=== PATIENT | female | born 1970 | race Caucasian/White ===

== ENCOUNTER 2025-06-16 00:05 | Emergency (ER) | payer MEDICARE, SELFPAY ==
--- OUTSIDE RECORDS SUMMARY | 2025-06-04 10:30 | XMS_ITS | Encounter Summary ---
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 Name Role Phone Malinda Patterson MD Primary Care Provider Reason for Visit * Reason Comments Diabetes Hypertension Hyperlipidemia Hypothyroidism Gastroesophageal Reflux Insect Bite Left foot, x 2 month s ago Encounter Details Date Type Department Care Team (Late st Contact Info) Description 06/04/2025 10:30 AM EDT Office Visit SEP Nelida Frost [address] [place] [address] Malinda Patterson MD [address] [place] [address] Athlete's foot on left (Primary Dx); Diabetic polyneuropathy associated with type 2 diabetes mellitus (HCC); Chronic bilateral low back pain without sciatica; Type 2 diabetes mellitus with peripheral neuropathy (HCC); SOB (shortness of breath); Hyperlipidemia LDL goal <100; Chronic heart failure, unspecified heart failure type (HCC); Type 2 diabetes mellitus with hyperglycemia, with long-term current use of insulin (HCC); Hyperlipidemia associated with type 2 diabetes mellitus (HCC); Hypothyroidism, unspecified type; Gastroesophageal reflux disease with esophagitis without hemorrhage; Leg cramps Social History Tobacco Use Types Packs/Day Years Used Date Smoking Tobacco: Never Smokeless Tobacco: Never Tobacco Cessation:Counseling Given: Yes Alcohol Use Standard Drinks/Week Comments Yes 0 (1 standard drink = 0.6 oz pur e alcohol) rarely [facility] Utilities Answer Date Recorded In the past 12 months has th e electric, gas, oil, or water company threatened to shut off services in your home? No 09/10/2024 Overall Financial Resource Strain (CARDIA) Answe r Date Recorded How hard is it for you to pa y for the very basics like food, housing, medical care, and heating? Not hard at all 09/10/2024 PHQ-2 Answer Date Recorded PHQ-2 Total Score 0 09/10/2024 [facility] - Occupational Stress Questionnaire Answer Date Recorded Do you feel stress - tense, restless, nervous, or anxious, or unable to sleep at night because your mind is troubled all the time - these days? Not at all 09/10/2024 Exercise Vital Sign Answer Date Recorde d On average, how many days pe r week do you engage in moderate to strenuous exercise (like a brisk walk)? 0 days 09/10/2024 On average, how many minutes do you engage in exercise at this level? 0 min 09/10/2024 Hunger Vital Sign Answer Date Recorded Within the past 12 months, y ou worried that your food would run out before you got the money to buy more. Never true 09/10/20 24 Within the past 12 months, t he food you bought just didn't last and you didn't have money to get more. Never true 09/10/2024 [facility]AP[facility] - Transportation Answer Date Re corded In the past 12 months, has l ack of transportation kept you from medical appointments or from getting medications? No 11/08 In the past 12 months, has l ack of transportation kept you from meetings, work, or from getting things needed for daily living? No 12/05/2023 [facility] Transportation Answer D ate Recorded In the past 12 months, has l ack of reliable transportation kept you from medical appointments, meetings, work or from getting things needed for daily living? No 09/10/2024 Comments No Sex and Gender Information Value Date Recorded Sex Assigned at Not on file Legal Sex Female 1:13 AM EDT Gender Identity Not on file Sexual Orientation Not on file documented as of this encounter Last Filed Vital Signs Vital Sign Reading Time Taken Comments Blood Pressure 150/90 06/04/2025 11:07 AM EDT Pulse 72 06/04/2025 11:07 AM EDT Temperature 35.7 C (96.3 F) 06/04/2025 11:07 AM EDT Respiratory Rate - - Oxygen Saturation 96% 06/04/2025 11: 07 AM EDT Inhaled Oxygen Concentration - - Weight 123.2 kg (271 lb 9.6 oz) 025 11:07 AM EDT Height 162.6 cm (5' 4 ) 06/04/2025 11:0 7 AM EDT Body Mass Index 46.62 06/04/2025 11:07 AM EDT documented in this encounter Functional Status * Is the person deaf or does he/she have serious difficulty hearing? Answer Date of Assessment Author No 12/04/2024 11:31 AM Bishop Regan RMA * Is the person blind or does he/she have serious difficulty seeing even when wearing glasses? Answer Date of Assessment Author No 12/04/2024 11:31 AM Bishop Regan RMA * Does this person have serious difficulty walking or climbing stairs? Answer Date of Assessment Author No 12/04/2024 11:31 AM Bishop Regan RMA * Does this person have difficulty dressing or bathing? Answer Date of Assessment Author No 12/04/2024 11:31 AM Bishop Regan RMA * Because of a physical, mental or emotional condition, does this person have difficulty doing errands alone such as visiting a doctor's office or shopping? Answer Date of Assessment Author No 12/04/2024 11:31 AM Bishop Regan RMA documented as of this encounter Mental Status * Because of a physical, mental or emotional condition, does this person have serious difficulty concentrating, remembering or making decisions? Answer Entry Date Author No 12/04/2024 11:31 AM Bishop Regan RMA documented in this encounter Ordered Prescriptions Prescription Sig Dispense Quantity Refills Last Filled Start Date End Date clotrimazole (LOTRIMIN) 1 % Top CreamIndications:Ath lete's foot on left Apply topically 2 times daily. 24 g 06/04/2025 lisinopriL (PRINIVIL;ZESTRIL) 10 mg Oral TabletIndications:Ty pe 2 diabetes mellitus with hyperglycemia, with long-term current use of insulin (HCC) Take 1 Tablet by mouth daily. 90 Tablet 1 06/04/2025 tiZANidine (ZANAFLEX) 4 mg Oral TabletIndications:Le g cramps Take 1 Tablet by mouth 3 times daily as needed. for muscle spasm 270 Tablet 1 06/04/2025 omeprazole (PRILOSEC) 20 mg Oral Capsule, Delayed Release(E.C.)Indicat ions:Gastroesophagea l reflux disease with esophagitis without hemorrhage Take 1 Capsule by mouth daily. 90 Capsule 1 06/04/2025 omega-3 acid ethyl esters (LOVAZA) 1 gram Oral CapsuleIndications:T ype 2 diabetes mellitus with peripheral neuropathy (HCC) Take 2 Capsules by mouth 2 times daily. 360 Capsule 1 06/04/2025 LEVOthyroxine (SYNTHROID) 125 mcg Oral TabletIndications:Hy pothyroidism, unspecified type Take 1 Tablet by mouth daily. 90 Tablet 1 06/04/2025 Insulin Syringe-Needle U-100 0.3 mL 30 gauge x 5/16 Misc Syringe 1 Each by [facility].(Non-Drug ; Combo Route) route 3 times daily. 100 Each 2 06/04/2025 insulin glargine (LANTUS SOLOSTAR U-100 INSULIN) 100 unit/mL (3 mL) SubQ Insulin PenIndications:Type 2 diabetes mellitus with hyperglycemia, with long-term current use of insulin (HCC),Hyperlipidemia associated with type 2 diabetes mellitus (HCC) Inject 30 units every evening as directed. E11.42 15 mL 06/04/2025 carvediloL (COREG) 3.125 mg Oral TabletIndications:Ch ronic heart failure, unspecified heart failure type (HCC) Take 1 Tablet by mouth 2 times daily. 200 Tablet 2 06/04/2025 Blood-Glucose Meter [facility] KitIndications:Type 2 diabetes mellitus with peripheral neuropathy (HCC) Any meter covered by insurance- test TID before meals 1 Kit 06/04/2025 Blood Sugar Diagnostic (ONETOUCH VERIO TEST STRIPS) [facility] StripIndications:Typ e 2 diabetes mellitus with peripheral neuropathy (HCC) 1 Strip by Other route 3 times daily. 100 Strip 06/04/2025 atorvastatin (LIPITOR) 80 mg Oral TabletIndications:Hy perlipidemia LDL goal <100 Take 1 Tablet by mouth daily. 30 Tablet 06/04/2025 aspirin 81 mg Oral Tablet, Chewable CHEW AND SWALLOW 1 TABLET BY MOUTH DAILY 30 Tablet 06/04/2025 albuterol (PROVENTIL HFA;VENTOLIN HFA) 90 mcg/actuation Inhl HFA Aerosol InhalerIndications:S OB (shortness of breath) INHALE 1 TO 2 PUFFS INTO THE LUNGS EVERY 4 HOURS NEEDED 6.7 g 06/04/2025 gabapentin (NEURONTIN) 300 mg Oral CapsuleIndications:D iabetic polyneuropathy associated with type 2 diabetes mellitus (HCC),Chronic bilateral low back pain without sciatica,Type 2 diabetes mellitus with peripheral neuropathy (HCC) Take 2 Capsules by mouth 3 times daily. 180 Capsule 06/04/2025 documented in this encounter Progress Notes * Malinda Patterson MD - 06/04/2025 10:30 AM EDTAssociated Problem(s): Type 2 diabetes mellitus with peripheral neuropathy (HCC) Orders: gabapentin (NEURONTIN) 300 mg Oral Capsule; Take 2 Capsules by mouth 3 times daily. Blood Sugar Diagnostic (ONETOUCH VERIO TEST STRIPS) Misc Strip; 1 Strip by Other route 3 times daily. Blood-Glucose Meter Misc Kit; Any meter covered by insurance- test TID before meals omega-3 acid ethyl esters (LOVAZA) 1 gram Oral Capsule; Take 2 Capsules by mouth 2 times daily. * Malinda Patterson MD - 06/04/2025 10:30 AM EDTAssociated Problem(s): Hyperlipidemia LDL goal <100 Lab Results Component Value Date LDLCALC 49 09/09/2024 Orders: atorvastatin (LIPITOR) 80 mg Oral Tablet; Take 1 Tablet by mouth daily. * Malinda Patterson MD - 06/04/2025 10:30 AM EDTAssociated Problem(s): Heart failure (HCC) Orders: carvediloL (COREG) 3.125 mg Oral Tablet; Take 1 Tablet by mouth 2 times daily. * Malinda Patterson MD - 06/04/2025 10:30 AM EDTAssociated Problem(s): Hypothyroidism Orders: LEVOthyroxine (SYNTHROID) 125 mcg Oral Tablet; Take 1 Tablet by mouth daily. * Malinda Patterson MD - 06/04/2025 10:30 AM EDT Vitals: 06/04/25 1107 BP: (!) 150/90 Pulse: 72 Temp: 96.3 ??F (35.7 ??C) TempSrc: Temporal SpO2: 96% Weight: 271 lb 9.6 oz (123.2 kg) Height: 5' 4 (1.626 m) Body mass index is 46.62 kg/m??. SUBJECTIVE: Chief Complaint Patient presents with Diabetes Hypertension Hyperlipidemia Hypothyroidism Gastroesophageal Reflux Insect Bite Left foot, x 2 months ago HPI: Diabetes: Kristin following up today for diabetes. Rash of R foot. Current symptoms/problems include none. Current monitoring regimen: home blood tests - 3 times daily Home blood sugar records: fasting range: below 200 Any episodes of hypoglycemia? no On insulin? Yes: Name/dose/frequency - lantus Weight trend: Body mass index is 46.62 kg/m??. Wt Readings from Last 3 Encounters: 06/04/25 271 lb 9.6 oz (123.2 kg) 04/10/25 283 lb 12.8 oz (128.7 kg) 03/05/25 277 lb 12.8 oz (126 kg) A1c trend: Lab Results Component Value Date HGBA1C 7.4 (A) 06/04/2025 HGBA1C 7.8 (H) 12/04/2024 HGBA1C 8.4 (H) 07/12/2024 Renal trend: Lab Results Component Value Date GFRAFRAM 77 09/24/2021 GFRAFRAM 95 09/21/2021 GFRAFRAM 64 09/17/2021 Lab Results Component Value Date GFRNONAFRAM 67 09/24/2021 GFRNONAFRAM 83 09/21/2021 GFRNONAFRAM 55 (L) 09/17/2021 Lab Results Component Value Date GFRCKDEPI 91 04/10/2025 GFRCKDEPI 87 03/07/2025 GFRCKDEPI 102 12/04/2024 Lipid trend: Lab Results Component Value Date LDLCALC 49 09/09/2024 Hypertension: Home reporting of hypertension was reviewed at time of visit. Kristin denies any episodes of dizziness, lightheadedness, presyncope, syncope, headache, or chest pain. Kristin does not report any new symptoms of possible hypertension sequelae. The patient reports that she is not having significant issues or side effects of current medications/treatments. Hyperlipidemia: Last Lipid and liver panel has been reviewed. Current cholesterol goals discussed with patient. Thepatient is on a lipid lowering agent. The patient currently is on a statin. No complaints of side effects from medication. The patient is not having issues maintaining compliance with the previously outlined care plan. The patient does not report significant side effects of current medications/treatments. Diet has been reviewed with patient. Thyroid Disease: Patient following up for hypothyroidism. she is compliant with current treatment. Active symptoms reported today are none. GERD: Following up for GERD. Requires medication for symptom control daily. Feels that symptoms areadequately controlled with current treatment. She does not modify diet to avoid symptoms. Additional issues addressed today: Controlled Substance Common Conditions Interval Assessment: Chronic Pain: Reason for visit: ChronicPain Follow-Up - Kristin Lal is here for regular follow-up for chronic pain. She reports that his pain is stable and unchanged since last evaluation. Kristin Lal has not followed up with another provider since last evaluation for this issue. The location(s) of the pain include: knees. She describes the quality of pain as: very deep with severe aching. When the pain is most severe, she rates the pain as 10 / 10. When the pain is the leastsevere, she rates the pain as 5 / 10. Functional limitations include: inability to perform tasks required for employment. She has been compliant with elements of the controlled substance contract and with recommendations outlined during last assessment. Doing well, No SE's with medication. No evidence of abuse/diversion. Pt informed and aware of medication's potential for abuse/dependence. Functional goal/goals of treatment: not to be in pain Pt said that she thinks that she has a bug bite on her foot and the area is getting bigger. She hasbeen potting neosporin on the area and it is not going away Review of Systems Constitutional: Negative for activity change, appetite change and fatigue. HENT: Negative for congestion, sinus pressure and trouble swallowing. Eyes: Negative for visual disturbance. Respiratory: Negative for cough, chest tightness and wheezing. Cardiovascular: Negative for chest pain, palpitations and leg swelling. Gastrointestinal: Negative for abdominal distention, abdominal pain, constipation, diarrhea, nauseaand vomiting. Genitourinary: Negative for difficulty urinating. Musculoskeletal: Positive for arthralgias and back pain. Skin: Positive for rash. Neurological: Negative for headaches. Hematological: Negative for adenopathy. Psychiatric/Behavioral: Negative for sleep disturbance. The patient is not nervous/anxious. OBJECTIVE: Physical Exam Vitals reviewed. Constitutional: General: She is not in acute distress. Appearance: She is well-developed. HENT: Head: Normocephalic and atraumatic. Right Ear: External ear normal. Left Ear: External ear normal. Mouth/Throat: Pharynx: No oropharyngeal exudate. Eyes: Pupils: Pupils are equal, round, and reactive to light. Neck: Thyroid: No thyromegaly. Cardiovascular: Rate and Rhythm: Normal rate and regular rhythm. Heart sounds: Normal heart sounds. No murmur heard. Pulmonary: Effort: Pulmonary effort is normal. No respiratory distress. Breath sounds: Normal breath sounds. No wheezing. Abdominal: General: Bowel sounds are normal. There is no distension. Palpations: Abdomen is soft. Tenderness: There is no abdominal tenderness. Musculoskeletal: Cervical back: Normal range of motion and neck supple. Lymphadenopathy: Cervical: No cervical adenopathy. Skin: Findings: Rash present. Comments: Oval rash of dorsum of R foot with raised edges Neurological: Mental Status: She is alert and oriented to person, place, and time. Motor: No abnormal muscle tone. Coordination: Coordination normal. Assessment & Plan Diabetic polyneuropathy associated with type 2 diabetes mellitus (HCC) Lab Results Component Value Date HGBA1C 7.4 (A) 06/04/2025 Improved Continue current Orders: gabapentin (NEURONTIN) 300 mg Oral Capsule; Take 2 Capsules by mouth 3 times daily. IRIS DIABETIC RETINOPATHY EXAM POCT GLYCATED HEMOGLOBIN, TOTAL MICROALBUMIN/CREATININE RATIO URINE; Future Chronic bilateral low back pain without sciatica Orders: gabapentin (NEURONTIN) 300 mg Oral Capsule; Take 2 Capsules by mouth 3 times daily. Type 2 diabetes mellitus with peripheral neuropathy ([facility]) Orders: gabapentin (NEURONTIN) 300 mg Oral Capsule; Take 2 Capsules by mouth 3 times daily. Blood Sugar Diagnostic (ONETOUCH VERIO TEST STRIPS) Misc Strip; 1 Strip by Other route 3 times daily. Blood-Glucose Meter Misc Kit; Any meter covered by insurance- test TID before meals omega-3 acid ethyl esters (LOVAZA) 1 gram Oral Capsule; Take 2 Capsules by mouth 2 times daily. SOB (shortness of breath) Orders: albuterol (PROVENTIL HFA;VENTOLIN HFA) 90 mcg/actuation Inhl HFA Aerosol Inhaler; INHALE 1 TO 2 PUFFS INTO THE LUNGS EVERY 4 HOURS NEEDED Hyperlipidemia LDL goal <100 Lab Results Component Value Date LDLCALC 49 09/09/2024 Orders: atorvastatin (LIPITOR) 80 mg Oral Tablet; Take 1 Tablet by mouth daily. Chronic heart failure, unspecified heart failure type ([facility]) Orders: carvediloL (COREG) 3.125 mg Oral Tablet; Take 1 Tablet by mouth 2 times daily. Type 2 diabetes mellitus with hyperglycemia, with long-term current use of insulin ([facility]) ] Orders: insulin glargine (LANTUS SOLOSTAR U-100 INSULIN) 100 unit/mL (3 mL) SubQ Insulin Pen; Inject 30 units every evening as directed. E11.42 IRIS DIABETIC RETINOPATHY EXAM POCT GLYCATED HEMOGLOBIN, TOTAL MICROALBUMIN/CREATININE RATIO URINE; Future lisinopriL (PRINIVIL;ZESTRIL) 10 mg Oral Tablet; Take 1 Tablet by mouth daily. Hyperlipidemia associated with type 2 diabetes mellitus ([facility]) Orders: insulin glargine (LANTUS SOLOSTAR U-100 INSULIN) 100 unit/mL (3 mL) SubQ Insulin Pen; Inject 30 units every evening as directed. E11.42 Hypothyroidism, unspecified type Orders: LEVOthyroxine (SYNTHROID) 125 mcg Oral Tablet; Take 1 Tablet by mouth daily. Gastroesophageal reflux disease with esophagitis without hemorrhage Orders: omeprazole (PRILOSEC) 20 mg Oral Capsule, Delayed Release(E.C.); Take 1 Capsule by mouth daily. Leg cramps Orders: tiZANidine (ZANAFLEX) 4 mg Oral Tablet; Take 1 Tablet by mouth 3 times daily as needed. for muscle spasm Athlete's foot on left Orders: clotrimazole (LOTRIMIN) 1 % Top Cream; Apply topically 2 times daily. documented in this encounter Plan of Treatment Upcoming Encounters Date Type Department Care Team (Late st Contact Info) Description 09/30/2025 10:30 AM EST Office Visit [facility] [address] [place] [address] Malinda Patterson MD [address] [facility] [place] [address] documented as of this encounter Goals Goal Patient Goal Type Associated Problems Recent Progress Patient-Stated? Author Blood Pressure < 140/90 Blood Pressure 150/90(2024 11:07 AM EDT) No Giovanni, Lyunda, RMA BMI (Calculated) < 30 General 46.7(06/04/20 11:07 AM EDT) No [place], Lyunda, RMA Maintain a healthy diet, exercise regularly and maintain an ideal body weight General No Radha Soto RMA HEMOGLOBIN A1C < 7.0 Result Component 7.4( 11:23 AM EDT) No Giovanni, Lyunda, RMA documented as of this encounter Procedures Procedure Name Priority Date/Time Associated Diagnosis Comments MICROALBUMIN/CREATI NINE RATIO URINE Routine 06/04/2025 11:24 AM EDT Diabetic polyneuropathy associated with type 2 diabetes mellitus (HCC) Type 2 diabetes mellitus with hyperglycemia, with long-term current use of insulin (HCC) POCT GLYCATED HEMOGLOBIN, TOTAL Routine 06/04/2025 11:23 AM EDT Diabetic polyneuropathy associated with type 2 diabetes mellitus (HCC) Type 2 diabetes mellitus with hyperglycemia, with long-term current use of insulin (HCC) IRIS DIABETIC RETINOPATHY EXAM Routine 06/04/2025 11:18 AM EDT Diabetic polyneuropathy associated with type 2 diabetes mellitus (HCC) Type 2 diabetes mellitus with hyperglycemia, with long-term current use of insulin (HCC) documented in this encounter Results * MICROALBUMIN/CREATININE RATIO URINE (06/04/2025 11:24 AM EDT) Urine Microalb <12.0 mg/L 06/05/2025 2:38 AM EDT [facility] [employer], [facility] Urine Creatinine 158.0 mg/dL 06/05/20 25 2:38 AM EDT [facility] [employer], [facility] Ur Microalb/Creat 025 2:38 AM EDT [facility] Comment: Because the albumin level is below the level of detection in this urine specimen, the laboratory is unable to calculate a reliable albumin/creatinine ratio. Microalbuminuria is unlikely if the urine albumin concentration is less than 20- 30 mg/L in a random specimen. Urine STRUCTURE OF URINARY TRACT PROPER / Unknown 06/04/2025 11:24 AM EDT 06/04/2025 11:24 AM EDT Malinda Patterson MD URINE ORDERABLES Final Result [facility] [employer], [facility] [address] [facility], [place] [address] [facility] [address] [place], [place] [id number] * (ABNORMAL) POCT GLYCATED HEMOGLOBIN, TOTAL (06/04/2025 11:23 AM EDT) Hemoglobin A1C 7.4(A) 4 - 6 % SEP OFFICE Lot Number [id number] SEP OFFICE Expiration Date 02/07/2027 SEP OFFICE SeriAl # SEP OFFICE 06/04/2025 11:2 3 AM EDT Malinda Patterson MD POINT OF CARE TEST ORDE RABLES Final Result SEP OFFICE * IRIS DIABETIC RETINOPATHY EXAM (06/04/2025 11:18 AM EDT) Retinopathy Exam Severity NORMAL [facility] Right Diabetic Retinopathy None [facility] Right Macular Edema None [facility] Right Other Retina None [facility] Right Eye Image Quality Gradable Image [facility] Left Diabetic Retinopathy None [facility] Left Macular Edema None [facility] LAB Left Other Retina None SE LAB Left Eye Image Quality Gradable Image [facility] 06/04/2025 11:1 8 AM EDT 06/04/2025 11:18 AM EDT Impressions [facility] - 06/04/2025 11:34 AM EDT Retinal Study Result for KRISTIN LAL, a 54 y/o, F (: 1970, ) presented to [facility] on 06-04-2025 for a retinal imaging study of the left and right eyes. Based on the findings of the study, the following is recommended for KRISTIN LAL Normal Study: Return for follow up retina evaluation within 2 years Interpreting Provider's Comments: No comments provided Diagnoses Present: E1142 - Type 2 diabetes mellitus with diabetic polyneuropathy Right eye findings: Negative for Diabetic Retinopathy Negative for Macular Edema Left eye findings: Negative for Diabetic Retinopathy Negative for Macular Edema This result was electronically signed by Ravindra Hernandez MD, , Taxonomy: [id number] on 06-04-2025 15:34 [facility]. NOTE: Any pathology noted on this diabetic retinal evaluation should be confirmed by an appropriate ophthalmic examination. Malinda Patterson MD OPHTHALMOLOGY SERVICES ORDERABLES Final Result Performing Organization Address City/[facility]/ZIP Co de Phone Number [facility] [address] [place], [place] [id number] documented in this encounter Visit Diagnoses Diagnosis Athlete's foot on left- Primary Dermatophytosis of foot Diabetic polyneuropathy associated with type 2 diabetes mellitus (HCC) Chronic bilateral low back pain without sciatica Type 2 diabetes mellitus with peripheral neuropathy (HCC) SOB (shortness of breath) Shortness of breath Hyperlipidemia LDL goal <100 Other and unspecified hyperlipidemia Chronic heart failure, unspecified heart failure type (HCC) Type 2 diabetes mellitus with hyperglycemia, with long-term current use of insulin (HCC) Hyperlipidemia associated with type 2 diabetes mellitus (HCC) Hypothyroidism, unspecified type Gastroesophageal reflux disease with esophagitis without hemorrhage Leg cramps Cramp of limb documented in this encounter Discontinued Medications Medication Sig Discontinue Reason Start Date End Da te albuterol (PROVENTIL HFA;VENTOLIN HFA) 90 mcg/actuation Inhl HFA Aerosol InhalerIndications:SOB (shortness of breath) INHALE 1 TO 2 PUFFS INTO THE LUNGS EVERY 4 HOURS NEEDED Reorder 05/31/2022 06/04/2025 Blood-Glucose Meter Mis KitIndications:Type 2 diabetes mellitus with peripheral neuropathy (HCC) Any meter covered by insurance- test TID before meals Reorder 06/23/2022 06/04/2025 aspirin 81 mg Oral Tablet, Chewable CHEW AND SWALLOW 1 TABLET BY MOUTH DAILY Reorder 07/21/2022 06/04/2025 Insulin Syringe-Needle U-100 0.3 mL 30 gauge x 5/16 Misc Syringe 1 Each by [facility].(Non-Drug; Combo Route) route 3 times daily. Reorder 06/30/2023 06/04/2025 tiZANidine (ZANAFLEX) 4 mg Oral TabletIndications:Leg cramps Take 1 Tablet by mouth 3 times daily as needed. for muscle spasm Reorder 07/11/2024 06/04/2025 omeprazole (PRILOSEC) 20 mg Oral Capsule, Delayed Release(E.C.)Indications: Gastroesophageal reflux disease with esophagitis without hemorrhage Take 1 Capsule by mouth daily. Reorder 07/11/2024 06/04/2025 omega-3 acid ethyl esters (LOVAZA) 1 gram Oral CapsuleIndications:Type 2 diabetes mellitus with peripheral neuropathy (HCC) TAKE 2 CAPSULES BY MOUTH TWICE DAILY Reorder 08/21/2024 06/04/2025 carvediloL (COREG) 3.125 mg Oral TabletIndications:Chronic heart failure, unspecified heart failure type (HCC) TAKE 1 TABLET BY MOUTH TWICE DAILY Reorder 2024 06/04/2025 atorvastatin (LIPITOR) 80 mg Oral TabletIndications:Hyperli pidemia LDL goal <100 Take 1 Tablet by mouth daily. Reorder 12/03/2024 06/04/2025 Blood Sugar Diagnostic (ONETOUCH VERIO TEST STRIPS) Misc StripIndications:Type 2 diabetes mellitus with peripheral neuropathy (HCC) 1 Strip by Other route 3 times daily. Reorder 12/03/2024 06/04/2025 LEVOthyroxine (SYNTHROID) 125 mcg Oral TabletIndications:Hypothy roidism, unspecified type Take 1 Tablet by mouth daily. Reorder 03/05/2025 06/04/2025 gabapentin (NEURONTIN) 300 mg Oral CapsuleIndications:Diabet ic polyneuropathy associated with type 2 diabetes mellitus (HCC),Chronic bilateral low back pain without sciatica,Type 2 diabetes mellitus with peripheral neuropathy (HCC) Take 2 Capsules by mouth 3 times daily. Reorder 03/05/2025 06/04/2025 insulin glargine (LANTUS SOLOSTAR U-100 INSULIN) 100 unit/mL (3 mL) SubQ Insulin PenIndications:Type 2 diabetes mellitus with hyperglycemia, with long-term current use of insulin (HCC),Hyperlipidemia associated with type 2 diabetes mellitus (HCC) Inject 30 units every evening as directed. E11.42 Reorder 04/08/2025 06/04/2025 documented as of this encounter Care Teams Rig Site Engineer Relationship Specialty Start Date End Date Malinda Patterson MD [address] [place] [address] PCP - General Family Medicine 08/27/14 documented as of this encounter
[2025-06-16] VITALS (11 sets, daily range): BP systolic 92–117; BP diastolic 51–64; PULSE 65–95; RESP 14–24; TEMP 36.6; O2SAT 97–100; BMI 47.5
--- NOTE | 2025-06-16 00:13 | ECG_ITS ---
APPROVED REPORT Exam: Resting ECG HR:73 bpm ECG Measurements Heart Rate 73 AXES PA 166 P 24 QRSd 89 QRS 79 QT 382 T 48 QTc 408 Conclusion SINUS RHYTHM LOW QRS VOLTAGE IN PRECORDIAL LEADS [QRS DEFLECTION < 1.0 mV IN CHEST LEADS] No STEMI Electronically signed by : ROMULO AMIN, 06/16/2025 04:47:15
--- NOTE | 2025-06-16 00:17 | HMH.EDGENADL ---
Discharge Plan Disposition Patient Disposition: Home, Self-Care Condition: Good Referrals Follow up/Referrals: Provider,Referral, [Primary Care Provider, Medical] - See instructions Activity Restrictions/Add. Instructions Additional Instructions/Restrictions: You were evaluated in the ER and are believed to be appropriate for discharge at this time. Continue taking all home medications as previously prescribed. Call your primary care doctor and tell them you were in the ER, ask them for an appointment in the next 2 to 3 days to be reevaluated. Return to the ER with any new, worsening, or otherwise concerning symptoms as discussed. Clinical Impressions Clinical Impression: Hyperglycemia Instructions Patient Instructions: DI for Hyperglycemia -- Adult Discharge ED Provider: Savanna Rae Adult HPI General Chief complaint: Hyper/Hypoglycemia Stated complaint: diabetic, numbness, dry mouth Time Seen by Provider: 06/16/25 00:07 History of Present Illness HPI narrative: 54-year-old female with history of diabetes on insulin complicated by peripheral neuropathy, hyperlipidemia, hypothyroid, GERD, and CHF not on a diuretic presents to the ER complaining of feeling numb all over and dry mouth. Patient reports she was sitting in her chair after dinner, dozed off, and when she woke up she had a sensation of being numb all over. She is able to feel touch, pressure, etc. but states her entire body feels numb like you are going to pass out but she has not passed out, no falls, she is not having any vision changes, hearing changes, no numbness, tingling, or weakness. She has no chest pain, no palpitations or difficulty breathing, no back pain, no nausea or vomiting. No diarrhea or constipation. Patient reports her blood sugar was 275 so she gave herself 13 units of her insulin. FSBG on arrival 192. She denies any dysuria or hematuria, no new swelling in the feet or legs, no fevers or chills, no cough or congestion, no other associated symptoms. Patient ambulated independently into the ER. Related Data Allergies Allergy/AdvReac Type Severity Reaction Status Date / Time Penicillins Allergy Hives Verified 06/16/25 00:31 [facility] Disclaimer: The information contained in this section may have been updated after the patient was seen, as this information can be updated by other users. Social History Smoking Status: Never smoker alcohol intake: never current occupational status: other Travel in the last 8 weeks?: None ROS Obtained: Yes Systems reviewed as appropriate & no additional complaints except as documented per HPI Physical Exam General General appearance: alert, in no apparent distress and obese Head Head exam: atraumatic and normocephalic Eye Eye exam: Present PERRL and EOMI; Absent jaundice, conjunctival injection or nystagmus ENT ENT exam: Present mucous membranes moist Neck Neck exam: Present normal inspection and full ROM Chest Chest inspection: Present symmetric chest wall rise Respiratory Respiratory exam: Present normal lung sounds bilaterally; Absent respiratory distress, wheezes or stridor Cardiovascular Cardiovascular exam: Present regular rate and normal rhythm Abdominal Exam Abdominal exam: Present soft; Absent distention, tenderness, guarding or rebound Extremities Exam Extremities exam: Present full ROM and other (Large, obese legs but no pitting edema; small wounds on distal bilateral lower extremities that patient states are chigger bites . Bites do not appear infected and are well-healing) Neurological Exam Neurological exam: Present alert, oriented X3, CN II-XII intact and normal gait; Absent motor sensory deficit (GCS 15, NIH 0, independently ambulatory into the ER) Psychiatric Psychiatric exam: Present normal affect and normal mood Skin Skin exam: Present warm and dry Medical Decision Making Medical Records Medical records reviewed: Yes I reviewed the patient's medical records. Screening: Per USPSTF and CDC recommendations, given the prevalence of disease in our region, it is our hospital?s policy to screen for HIV and viral Hepatitis for all patients aged 18 and over and those with ongoing risk factors. MR Comment: Patient handed me an AVS from her recent PCP visit which discusses her chronic medical conditions. She was started on clotrimazole after her last visit which was at the end of May. Junior Inquiry Pt receiving controlled substance: No Vital Signs: 06/16/25 00:18 06/16/25 00:31 06/16/25 00:53 Temperature 97.8 F Temperature Source Oral Pulse Rate 71 67 Pulse Rate [Orthostatic Lying Radial] Pulse Rate [Orthostatic Sitting Right Radial] Pulse Rate [Orthostatic Standing Right Radial] Pulse Rate [Radial] 73 Respiratory Rate 16 23 Blood Pressure 94/51 L Blood Pressure [Orthostatic Lying Right Arm] Blood Pressure [Orthostatic Sitting] Blood Pressure [Orthostatic Standing Right Arm] Blood Pressure [Right Arm] 112/57 L Blood Pressure Mean [Right Arm] 75 Blood Pressure Position [Right Arm] Sitting 02 Sat by Pulse Oximetry 99 100 Oxygen Delivery Method Room Air 06/16/25 01:00 06/16/25 01:17 06/16/25 01:18 Temperature Temperature Source Pulse Rate 67 95 H 78 Pulse Rate [Orthostatic Lying Radial] Pulse Rate [Orthostatic Sitting Right Radial] Pulse Rate [Orthostatic Standing Right Radial] Pulse Rate [Radial] Respiratory Rate 21 24 14 Blood Pressure 102/59 L 102/60 L 117/60 Blood Pressure [Orthostatic Lying Right Arm] Blood Pressure [Orthostatic Sitting] Blood Pressure [Orthostatic Standing Right Arm] Blood Pressure [Right Arm] Blood Pressure Mean [Right Arm] Blood Pressure Position [Right Arm] 02 Sat by Pulse Oximetry 98 98 97 Oxygen Delivery Method 06/16/25 01:21 Temperature Temperature Source Pulse Rate Pulse Rate [Orthostatic Lying Radial] 73 Pulse Rate [Orthostatic Sitting Right Radial] 74 Pulse Rate [Orthostatic Standing Right Radial] 79 Pulse Rate [Radial] Respiratory Rate Blood Pressure Blood Pressure [Orthostatic Lying Right Arm] 102/60 L Blood Pressure [Orthostatic Sitting] 92/54 L Blood Pressure [Orthostatic Standing Right Arm] 117/60 Blood Pressure [Right Arm] Blood Pressure Mean [Right Arm] Blood Pressure Position [Right Arm] 02 Sat by Pulse Oximetry Oxygen Delivery Method Lab Data Lab Results 06/16/25 00:13: VBG pH 7.31, VBG pCO2 52.1 H, VBG pO2 43.1 H, VBG HCO3 25.9, VBG Total CO2 27.5 H, VBG O2 Saturation 73.1 H, VBG Base Excess -0.3, VBG Lactic Acid 2.0 06/16/25 00:27: WBC 13.7 H, RBC 4.58, Hgb 11.9 L, Hct 39.1, MCV 85.4, MCH 26.0 L, MCHC 30.4 L, RDW 15.9, Plt Count 295, MPV 12.3 H, Neut % (Auto) 66.0, Lymph % (Auto) 25.2, Guthrie % (Auto) 6.6, Eos % (Auto) 1.6, Baso % (Auto) 0.3, Neut # (Auto) 9.0 H, Lymph # (Auto) 3.5, Guthrie # (Auto) 0.9, Eos # (Auto) 0.2, Baso # (Auto) 0.0, PT 11.3, INR 1.02, Sodium 135 L, Potassium 4.9, Chloride 103, Carbon Dioxide 27, Anion Gap 9.9, BUN 15, Creatinine 0.80, Estimated Creat Clear 69, Estimated GFR 74, Est GFR ( Amer) 90, Glucose 152 H, Calcium 9.0, Total Bilirubin 0.7, AST 24, ALT 21, Alkaline Phosphatase 105, Troponin I < 0.01, NT-Pro-B Natriuret Pep < 20.0, Total Protein 7.0, Albumin 4.0, Globulin 3.0, Albumin/Globulin Ratio 1.3, Acetone Level None detected 06/16/25 00:37: Urine Color Yellow, Urine Appearance Clear, Urine pH 6.0, Ur Specific Burton 1.010, Urine Protein Negative, Urine Glucose (UA) Negative, Urine Ketones Negative, Urine Blood Negative, Urine Nitrate Negative, Urine Bilirubin Negative, Urine Urobilinogen 0.2, Ur Leukocyte Esterase Negative, Urine RBC None, Urine WBC 3-5, Ur Squamous Epith Cells 5-10, Urine Bacteria 1+ 06/16/25 00:27 06/16/25 00:27 Orders (Tests/Meds): ED MEDICATIONS Discontinued Medications Generic Name Dose Route Start Last Admin Trade Name Freq PRN Reason Stop Dose Admin Albuterol/Ipratropium 3 ml 06/16/25 00:41 06/16/25 00:52 Ipratropium/Albuterol 3 Ml Neb IH 06/16/25 00:42 3 ml ONCE ONE Administration Lactated Ringer's 500 mls @ 999 mls/hr 06/16/25 00:14 06/16/25 00:32 Lactated Ringer's 500ml IV 06/16/25 00:44 999 mls/hr .Q31M ONE Administration ORDERS Category Date Time Status CXR --portable [XR chest portable] Stat Exams 06/16/25 00:23 Completed Acetone, Serum (Rapid) Stat Lab 06/16/25 00:27 Completed BNP [NT Pro Brain Natriuretic Pep.] Stat Lab 06/16/25 00:27 Completed CBC w/Auto Diff [Complete Blood Count Auto Diff] Stat Lab 06/16/25 00:27 Completed CMP [Comprehensive Metabolic Panel] Stat Lab 06/16/25 00:27 Completed PT INR [Prothrombin Time INR] Stat Lab 06/16/25 00:27 Completed Trop I [Troponin I] Stat Lab 06/16/25 00:27 Completed Troponin I Q3H Lab 06/16/25 03:15 Ordered Troponin I Q3H Lab 06/16/25 06:15 Ordered Urinalysis and Microscopic Stat Lab 06/16/25 00:37 Completed VBG [Venous Blood Gas] Stat RT 06/16/25 00:13 Completed ECG Request Stat Y 06/16/25 00:13 Ordered Medical Decision Narrative: In summary, this 54-year-old female with comorbidities discussed in the HPI which are not at goal therapy presents to the emergency department today with a sensation of feeling numb all over. On initial evaluation patient is hemodynamically stable, afebrile, FSBG on arrival 192, patient is obese, benign cardiopulmonary exam, no peripheral edema, benign abdominal exam, GCS 15, though the patient reports feeling numb all over she does not actually have any deficits on exam. Sensation completely intact throughout. Differential diagnosis includes but is not limited to hyperglycemia, hypoglycemia, DKA, HHS, UTI, considered the possibility of presyncope or arrhythmia though patient has no chest pain or difficulty breathing I did consider the possibility of ACS though I suspect this is very unlikely. Patient has a history of peripheral neuropathy but she is not having any pain or tingling. With no identifiable deficits on exam I do not believe this is an acute neurologic pathology and it would not make sense for her to have involvement of her entire body with neurologic abnormality so I suspected this more likely to be metabolic. Based on these concerns, I ordered serum labs, cardiac workup, chest x-ray, urine studies. ECG personally interpreted demonstrates sinus rhythm, rate 73, normal axis, normal NH and QTc, no STEMI. Patient received small amount of IV fluids as I do not want to fluid overload this patient since she reports a history of CHF though she does not take any diuretics. Since she is hyperglycemic hopefully this will help decrease her blood sugar. Labs personally reviewed demonstrate mild leukocytosis, nonspecific and nonactionable, mild but nonactionable anemia, normal platelets, PT/INR normal, VBG with normal pH at 7.31, very slight hypercarbia PCO2 52.1. Patient is prescribed albuterol so I administered a single DuoNeb though I do not appreciate any evidence of respiratory distress, she is saturating well on room air, and she has no wheezing or other adventitious sounds. I do not believe this hypercarbia is contributing to her symptoms at this time. UA negative for findings of infection or other abnormalities, no acetone. Findings are reassuring against DKA. CMP []. XR personally interpreted demonstrates no acute intrathoracic abnormality, see radiology read for final interpretation. Orthostatics initially performed by community development technician were not performed correctly, patient's sitting blood pressure was initially forgotten and performed after the lying and the standing, tech had to go back into the room and just randomly go t the sitting blood pressure. I am not considering these as part of my assessment since they were not done correctly. Full orthostatics are being performed by RN at this time. Orthostatics correctly performed by RN are reassuring. Patient had no hypotension, her heart rate did increase between lying and sitting but improved upon standing. She experienced no lightheadedness or dizziness. I do not believe orthostatic hypotension is contributing to her symptoms. On reassessment she feels very well, has none of the symptoms that prompted her to come in, and with very reassuring workup I believe she is appropriate for discharge at this time. I discussed results with the patient and family they are agreeable to the plan for discharge. No new prescriptions. I gave instructions for continued symptomatic monitoring and management, outpatient follow-up including close reevaluation by her PCP, and strict return precautions for the ER. She indicated understanding and the patient was discharged in stable condition. Critical Care Critical Care Time Critical Care Time: No
--- NOTE | 2025-06-16 00:23 | XR_ITS ---
PROCEDURE INFORMATION: Exam: XR Chest Exam date and time: 06/16/2025 12:40 AM Age: 54 years old Clinical indication: Other: Pre-syncope TECHNIQUE: Imaging protocol: Radiologic exam of the chest. Views: 1 view. COMPARISON: No relevant prior studies available. FINDINGS: Lungs: Right hemidiaphragm elevation with right lower lung atelectasis. Mild scarring and atelectasis in the lower lungs. Pleural spaces: Unremarkable. No pleural effusion. No pneumothorax. Heart/Mediastinum: Unremarkable. No cardiomegaly. Bones/joints: Unremarkable. IMPRESSION: No acute findings.
[2025-06-16] MEDS: RINGERS SOLUTION,LACTATED 500 ML 999 ML IV (00:32)
[2025-06-16 00:36] LABS: Lactate Venous 2.0 mmol/L (0.4-2.0); VBG HCO3 25.9 mmol/L (23-30); VBG PH 7.31 mmol/L (7.31-7.41); VBG PO2 43.1 mmol/L (28-40)
[2025-06-16 00:36] LABS: Hematocrit 39.1 % (37.0-47.0); Hemoglobin 11.9 g/dL (12.2-16.2); Immature Granulocytes % 0.3 %; Mean Corpuscular HGB Conc 30.4 g/dL (31.8-35.4); Mean Corpuscular Hemoglobin 26.0 pg (27.0-31.2); Mean Corpuscular Volume 85.4 fl (81-99); Nucleated Red Blood Cells % 0 %; Platelet Count 295 K/mm3 (142-424); Red Blood Count 4.58 M/mm3 (4.20-5.40); Red Cell Distribution Width-SD 49.1 fL; White Blood Count 13.7 K/mm3 (4.8-10.8)
[2025-06-16 00:38] LABS: VBG PCO2 52.1 mmol/L (35-51)
[2025-06-16 00:45] LABS: Microscopic, Urine URINE MICROSCOPIC (MICROSCOPIC)
[2025-06-16 00:47] LABS: Acetone, Serum (Rapid) None Detected (None Detect)
[2025-06-16 00:47] LABS: Bilirubin,Urine Negative (Negative); Color,Urine YELLOW (Yellow); Glucose,Urine (UA) Negative (Negative); Ketones,Urine Negative (Negative); Leukocyte Esterase,Urine Negative (Negative); PH,Urine 6.0 (5.0-8.5); Protein,Urine Negative (Negative); Specific Gravity, Urine 1.010 (1.005-1.030); Urobilinogen,Urine 0.2 EU/dl (0.2)
[2025-06-16 00:50] LABS: INR 1.02 (0.9-1.1); Prothrombin Time 11.3 seconds (10.1-12.5)
[2025-06-16 00:51] LABS: Alanine Aminotransferase 21 U/L (12-78); Albumin Level 4.0 g/dl (3.5-5.0); Albumin/Globulin Ratio 1.3 (1.1-1.8); Alkaline Phosphatase 105 U/L (38-126); Anion Gap 9.9 mEq/L (5-15); Aspartate Amino Transferase 24 U/L (14-36); Bilirubin,Total 0.7 mg/dl (0.2-1.3); Blood Urea Nitrogen 15 mg/dl (7-17); Calcium 9.0 mg/dl (8.4-10.2); Carbon Dioxide 27 mmol/L (22.0-30.0); Chloride 103 mmol/L (98-107); Creatinine Clearance Estimated 69 mL/min (50-200); Creatinine,Serum 0.80 mg/dl (0.52-1.04); Estimated Glomerular Filt Rate 74 ml/min (>60); GFR (African American) 90 ML/MIN (>60); Globulin 3.0 g/dL (1.3-3.2); Glucose 152 mg/dl (74-100); Potassium 4.9 mmoL/L (3.5-5.1); Sodium 135 mmol/L (136-145); Total Protein,Serum 7.0 g/dl (6.3-8.2)
[2025-06-16] MEDS: IPRATROPIUM/ALBUTEROL 3 ML NEB IH (00:52)
[2025-06-16 01:00] LABS: NT Pro Brain Natriuretic Pep. < 20.0 pg/mL (0-125)
[2025-06-16 01:04] LABS: Troponin I < 0.01 ng/ml (0.00-0.034)
[2025-06-16 01:05] LABS: Bacteria,Urine 1+ /lpf
--- NOTE | 2025-06-16 01:51 | PC.NURSE ---
IV found not to be working, removed and bandage applied, no redness or swelling noted.
--- OUTSIDE RECORDS SUMMARY | 2025-06-16 02:12 | XMS_ITS | Encounter Summary ---
Author Organization [place] [address] Care Team Providers Care Data Processing Systems Consultant Name Role Phone Malinda Patterson MD Primary Care Provider Encounter Details Date Type Department Care Team (Late st Contact Info) Description 03/07/2025 Results Follow-Up [facility] [address] [place] [phone] Malinda Patterson MD [address] [place] [address] COMPLIANCE PANEL, URINE Social History Tobacco Use Types Packs/Day Years Used Date Smoking Tobacco: Never Smokeless Tobacco: Never Alcohol Use Standard Drinks/Week Comments Yes 0 (1 standard drink = 0.6 oz pur e alcohol) rarely [place] Utilities Answer Date Recorded In the past 12 months has [employer], gas, oil, or water [employer] threatened to shut off services in your home? No 09/10/2024 Overall Financial Resource Strain (CARDIA) Answe r Date Recorded How hard is it for you to pa y for the very basics like food, housing, medical care, and heating? Not hard at all 09/10/2024 PHQ-2 Answer Date Recorded PHQ-2 Total Score 0 09/10/2024 [facility] Danielson of Occupat ional Health - Occupational Stress [...] things needed for daily living? No 12/05/2023 [facility] IP Transportation Answer D ate Recorded In [...] on file documented as of this encounter Functional Status * Is the person deaf or does he/she have serious difficulty hearing? Answer Date of Assessment Author No 12/04/2024 11:31 AM Bsihop Regan RMA * Is the person blind [...] 12/04/2024 11:31 AM Bishop Regan RMA * Suicide Severity Rating Answer Date of Assessment Author No Risk 04/10/2025 10:58 AM EDT King Perkins RN * [place] Suicide Severity Rating Scale (Q shift for moderate and high) Question Answer Date of Assessment Author 1. In the past month, have y ou wished you were or wished you could go to sleep and not wake up? 0 04/10/2025 10:58 AM EDT Knig Cortez RN 2. In the past month, have y ou actually had any thoughts of killing yourself? (If no, skip to question 6) 0 04/10/2025 10:58 AM EDT King Perkins RN 6. Have you ever done anythi ng, started to do anything, or prepared to do anything to end your life? 0 04/10/2025 10:58 AM EDT King Gutierrez RN documented as of this encounter Mental Status * Because of a physical, mental or emotional condition, does this person have serious difficulty concentrating, remembering or making decisions? Answer Entry Date Author No 12/04/2024 11:31 AM Bishop Regan RMA documented in this encounter Plan of Treatment Upcoming Encounters Date Type Department Care Team (Late st Contact Info) Description 09/30/2025 10:30 AM EST Office Visit [facility] [address] [facility] [place] [phone] Malinda Patterson MD [address] [place] [address] documented as of this encounter Goals Goal Patient Goal Type Associated Problems Recent Progress Patient-Stated? Author Blood Pressure < 140/90 Blood Pressure 150/90(2024 11:07 AM EDT) No Giovanni, Lyunda, RMA BMI (Calculated) < 30 General 46.7(06/04/20 11:07 AM EDT) No [place], Lyunda, RMA Maintain a healthy diet, exercise regularly and maintain an ideal body weight General No Radha Soto RMA HEMOGLOBIN A1C < 7.0 Result Component 7.4( 5 11:23 AM EDT) No Ezekiel Davila RMA documented as of this encounter Visit Diagnoses Not on filedocumented in this encounter Care Teams Data Processing Systems Consultant Relationship Specialty Start Date End Date Malinda Patterson MD [address] [place] [address] PCP - General Family Medicine 08/27/14 documented as of this encounter
--- OUTSIDE RECORDS SUMMARY | 2025-06-16 02:12 | XMS_ITS | Clinical Summary ---
Author Organization [facility] Address [address] [place] [address] Phone Care Team Providers Care Waitstaff Name Role Phone Contreras Casper MD Primary Care Physician [ ] Conditions or Problems Problem Name Problem Code Onset Date Status Entry Date Provider Comment Standard Description Annotate OTITIS EXTERNA 0395520 (SNOMED CT) 06/04 Inactive 06/04 Contreras Casper MD Otitis externa RIGHT NEURODERMATI TIS 690430316 (SNOMED CT) 04/26 Inactive 04/27 Contreras Casper MD Neurodermatitis ABRASION 999946387 (SNOMED CT) 04/26 Inactive 04/26 Contreras Casper MD Abrasion R ARM HAND PAIN, RIGHT 18993006 (SNOMED CT) 04/22 Active 04/22 Contreras Casper MD Hand pain LIVER FUNCTION TESTS ABNORMAL 632269660 (SNOMED CT) 11/19 Active 11/19 Contreras Casper MD Liver function tests outside reference range LICHEN SIMPLEX CHRONICUS 99094805 (SNOMED CT) 12/30 Active 12/30 Jenna oLck MD Lichen simplex chronicus VENTRAL HERNIA 867075505 (SNOMED CT) 12/16 Active 12/16 Contreras Casper MD Hernia of anterior abdominal wall LOW BACK PAIN CHRONIC M54.5 (ICD-10-CM ) 07/17 Active 07/17 Contreras Casper MD Low back pain HYPERKALEMIA 79101996 (SNOMED CT) 06/05 Active 06/05 Contreras Casper MD Hyperkalemia RESTLESS LEG SYNDROME 97113866 (SNOMED CT) 05/28 Active 05/28 Contreras Casper MD Restless legs HYPOTENSION 58586761 (SNOMED CT) 04/18 Active 04/20 Contreras Casper MD Low blood pressure CHEST PAIN NOS 60288292 (SNOMED CT) 03/28 Active 03/28 Contreras Casper MD Chest pain HYPOTHYROIDI SM 54715830 (SNOMED CT) 02/21 Active 02/21 Contreras Casper MD Hypothyroidism IBS 45484264 (SNOMED CT) 02/21 Active 02/21 Contreras Casper MD Irritable bowel syndrome GERD 143488907 (SNOMED CT) 02/21 Active 02/21 Contreras Casper MD Gastroesophageal reflux disease KNEE PAIN, BILATERAL 05892088 (SNOMED CT) 02/21 Active 02/21 Contreras Casper MD Knee pain HYPERTRIGLYC ERIDEMIA 721944924 (SNOMED CT) 02/21 Active 02/21 Contreras Casper MD Hypertriglycerid emia HYPERLIPIDEM IA 15856709 (SNOMED CT) 02/21 Active 02/21 Contreras Casper MD Hyperlipidemia HYPERTENSION 74766600 (SNOMED CT) 02/21 Active 02/21 Contreras Casper MD Hypertensive disorder MORBID OBESITY 802233470 (SNOMED CT) 02/21 Active 02/21 Contreras Casper MD Morbid obesity DM TYPE 2 CONTROL E11.9 (ICD-10-CM ) 02/21 Active 02/21 Contreras Casper MD Type 2 diabetes mellitus without complications VAGINAL DISCHARGE 662376602 (SNOMED CT) 01/23 Active 01/23 Jojo Jessiac DREDGE MATE Vaginal discharge Medications Medication Instructions Start Date Stop Date Generic Name ND Provider METFORMIN HCL 500 MG TABS TAKE 1 TABLET BY MOUTH 2 TIMES A DAY METFORMIN HCL 37279013751 Contreras Casper MD ASPIR-LOW 81 MG ORAL TABLET DELAYED RELEASE TAKE 1 TABLET BY MOUTH 1 TIME A DAY ASPIRIN 69463419016 Contreras Casper MD MUPIROCIN 2 % OINT APPLY TO AFFECTED AREA 2 TIMES DAILY MUPIROCIN 72913549200 Contreras Casper MD INDOMETHACIN 25 MG CAPS TAKE 1 OR 2 TABLETS BY MOUTH EVERY 8 HOURS NEEDED INDOMETHACIN 50500581426 Contreras Casper MD ASPIRIN LOW DOSE 81 MG ORAL TABLET TAKE ONE BY MOUTH EVERY MORNING ASPIRIN 46777654505 Contreras Casper MD METFORMIN HCL 500 MG TABS TAKE 1 TABLET BY MOUTH 2 TIMES A DAY METFORMIN HCL 88171285159 Contreras Casper MD NAPROXEN 500 MG TABS TAKE 1 TABLET EVERY 12 HOURS NEEDED FOR PAIN NAPROXEN 62817651109 Contreras Casper MD INDOMETHACIN 25 MG CAPS TAKE 1 OR 2 TABLETS BY MOUTH EVERY 8 HOURS NEEDED INDOMETHACIN 07125847901 Contreras Casper MD TRADJENTA 5 MG TABS TAKE 1 TABLET BY MOUTH ONCE A DAY LINAGLIPTIN 48553586006 Contreras Casper MD HYDROCORTISONE 2.5 % OINT apply TID HYDROCORTISONE 75269953053 Jenna Lock MD TRIAMCINOLONE ACETONIDE 0.025 % CREA cutaneous twice a day TRIAMCINOLONE ACETONIDE 54748123282 Jenna Lock MD VENTOLIN HFA 108 (90 Base) MCG/ACT AERS TAKE 2 INHALATIONS EVERY 4 HOURS NEEDED FOR WHEEZING ALBUTEROL SULFATE 36968326621 Contreras Casper MD FLOVENT HFA 110 MCG/ACT INHALATION AEROSOL TAKE 2 INHALATIONS TWICE A DAY FLUTICASONE PROPIONATE HFA 85628288208 Contreras Casper MD METFORMIN HCL 1000 MG TABS TAKE 1 TABLET BY MOUTH 2 TIMES A DAY METFORMIN HCL 46820794863 Contreras Casper MD BLOOD GLUCOSE TEST STRP TEST BLOOD SUGAR ONCE DAILY DX CODE 250.0 DISPENSE PER FORMULARY GLUCOSE BLOOD 02002726592 Contreras Casper MD LISINOPRIL 10 MG TABS ONE TABLET BY MOUTH EVERY DAY LISINOPRIL 06610959401 Contreras Casper MD CLOTRIMAZOLE 1 % CREA apply twice daily to rash area CLOTRIMAZOLE 98094795933 Contreras Casper MD LANCETS ULTRA THIN 30G CHECK SUGAR TWICE A DAY LANCETS 12897135709 Contreras Casper MD OMEPRAZOLE 20 MG CPDR TAKE 1 CAPSULE BY MOUTH ONCE A DAY OMEPRAZOLE 90429201048 Contreras Casper MD GABAPENTIN 300 MG CAPS TAKE ONE CAPSULE BY MOUTH FOUR TIMES DAILY GABAPENTIN 69823164666 Contreras Casper MD NAPROXEN 500 MG TABS TAKE 1 TABLET EVERY 12 HOURS NEEDED FOR PAIN NAPROXEN 07554096635 Contreras Casper MD ASPIRIN LOW DOSE 81 MG ORAL TABLET TAKE ONE BY MOUTH EVERY MORNING ASPIRIN 66503578527 Contreras Casper MD LOVAZA 1 GM CAPS TAKE ONE BY MOUTH TWICE A DAY [id number] ETHYL ESTERS 15140186809 Contreras Casper MD SERTRALINE HCL 100 MG TABS TAKE ONE TABLET BY MOUTH EVERY MORNING SERTRALINE HCL 91114615490 Contreras Casper MD ATORVASTATIN CALCIUM 40 MG TABS TAKE ONE TABLET BY MOUTH EVERY NIGHT ATORVASTATIN CALCIUM 47432933162 Contreras Casper MD LEVOTHROID 175 MCG TABS TAKE ONE TABLET BY MOUTH EVERY DAY LEVOTHYROXINE SODIUM Contreras Casper MD LISINOPRIL 10 MG TABS ONE TABLET BY MOUTH EVERY DAY LISINOPRIL 57628108800 Contreras Casper MD METFORMIN HCL 500 MG TABS ONE TAB BY MOUTH TWICE DAILY METFORMIN HCL 58963915524 Contreras Casper MD CARVEDILOL 3.125 MG TABS TAKE ONE TABLET BY MOUTH TWICE DAILY CARVEDILOL 82460151131 Contreras Casper MD CLOTRIMAZOLE 1 % CREA apply twice daily to rash area CLOTRIMAZOLE 02647718445 Jojo Jessica DREDGE MATE DIFLUCAN 150 MG TABS TAKE 1 BY MOUTH 1 TIME A DAY FLUCONAZOLE 52114701239 Jojo Jessica DREDGE MATE Medications Administered No information available. Allergies, Adverse Reactions, Alerts Observed no known allergies at Results Date Name Value Unit Range Flag Description Lab Report: CHLAMYDIA/N. ZOFIA ORRHOEAE DNA, SDA GC DNA PROBE NOT DETECTED NOT DETECT N Neisseria gonorrhoeae DNA [Presence] in Anorectal by ELLIE with probe detection Office Visit: [facility] OIN DIABET IES RM 11 LDL GOAL <100 mg/dL LDL target l evel Office Visit: [facility] ON DIABETI ES RM 11 -LO COMP BG FASTING 181 mg/dL blood gluc ose, fasting Office Visit: 1 MOS FU RM 10 WBC DIPSTK U negative Leukocy te esterase [Presence] in Urine by Test strip NITRITE URN negative Nitrite [Presence] in Urine by Test strip UROBILINOGEN 1 Urobilin ogen [Presence] in Urine by Test strip PROTEIN, URN negative protein , urine, semiquantitative (dipstick) PH URINE 6.0 pH of Urine by Test strip BLOOD UR DIP negative blood i n urine (hemoglobin) by dipstick SPEC GR URIN 1.025 Specific gravity of Urine by Test strip KETONES URN negative Ketones [Mass/volume] in Urine by Test strip BILIRUBIN UR negative Bilirub in.total [Presence] in Urine by Test strip GLUCOSE, URN negative Glucose [Mass/volume] in Urine by Test strip Office Visit: Vaginal irrita tion?? -JAR 10/22/13 RM# 4 PREG TST URN negative beta HC G, urine, semiquantitative Lab Report: LIPID PANEL WITH REFLEX TO DIRECT LDL, LIPID PANEL WITH REFL ... HGBA1C 7.4 % OF TOTAL HGB % <5.7 H Hemoglobin A1c/Hemoglobin, total in Blood - % T4, FREE 0.4 ng/dL 0.8-1.8 L Thyroxine (T 4) free [Mass/volume] in Serum or Plasma BASO % MANU 0.3 % N basophils as percent of blood leukocytes, manual count EOS % MANU 2.9 % N eosinophil s as percent of blood leukocytes, manual count MONOCYTE % 2.7 % N Monocytes/ 100 leukocytes in Blood by Automated count LYMPH% P BLD 19.2 % N lymphocy diaz as percent of blood leukocytes PMN % 74.9 % N Neutrophils/1 00 leukocytes in Blood by Automated count ABS BASOS 43 {Cells}/ uL 0-200 N Basophils [#/volume] in Blood ABS EOS 412 {Cells}/ uL 15-500 N Eosinophils [#/volume] in Blood ABS MONOS 383 {Cells}/ uL 200-950 N Monocytes [#/volume] in Blood ABSLYMPHCT 2726 {Cells}/ uL 850-3900 N Lymphocytes [#/volume] in Blood ABS NEUTROPH 43629 CELLS/UL 10*3/uL 5850-8360 H Neutrophils [#/volume] in Blood PLATELETK/UL 397 THOUSAND/UL 10*3/uL 140-400 N platelet count RDW 20.7 % 11.0-15.0 H Erythrocyte distribution width [Ratio] by Automated count OL-MCHC 31.1 g/dL 32.0-36.0 L mean corpus cular hemoglobin concentration, rbc MCH 25.4 pg 27.0-33.0 L MCH [Entiti c mass] by Automated count MCV 81.8 fL 80.0-100.0 N MCV [Entit ic volume] by Automated count HCT 39.3 % 35.0-45.0 N Hematocrit [Volume Fraction] of Blood by Automated count HGB 12.2 g/dL 11.7-15.5 N Hemoglobin [Mass/volume] in Blood RBC M/UL 4.80 MILLION/UL 10*6/uL 3.80-5.10 N red blood count WBC CT BLOOD 14.2 10*3/uL 3.8-10.8 H leukocy te count, blood SGPT (ALT) 29 U/L 6-29 N Alanine aminotransferase [Enzymatic activity/volume] in Serum or Plasma SGOT (AST) 35 U/L 10-30 H Aspartate aminotransferase [Enzymatic activity/volume] in Serum or Plasma ALK PHOS 97 U/L 33-115 N Alkaline german sphatase [Enzymatic activity/volume] in Blood BILI TOTAL 0.6 mg/dL 0.2-1.2 N Bilirubin. total [Mass/volume] in Serum or Plasma A/G RATIO 1.2 (calc) 1.0-2.5 N Albumin/ Globulin [Mass Ratio] in Serum or Plasma GLOBULIN TOT 3.5 G/DL (CALC) g/dL 1.9-3.7 N Globulin [Mass/volume] in Serum ALBUMIN EOP 4.3 g/dL 3.6-5.1 N Albumin [Mass/volume] in Serum or Plasma by Electrophoresis PROTEIN, TOT 7.8 g/dL 6.1-8.1 N Protein [Mass/volume] in Serum or Plasma CALCIUM 10.0 mg/dL 8.6-10.2 N Calcium [Moles/volume] in Serum or Plasma CO2 30 mmol/L 19-30 N Carbon dioxid e, total [Moles/volume] in Venous blood CHLORIDE BLD 99 mmol/L 98-110 N chloride , blood POTASSIUM 5.4 mmol/L 3.5-5.3 H Potassium [Moles/volume] in Serum or Plasma SODIUM 138 mmol/L 135-146 N Sodium [Moles/volume] in Serum or Plasma BUN/CREAT NOT APPLICABLE (calc) 6-22 Urea nitrogen/Creatinine [Mass Ratio] in Serum or Plasma EGFR 65 mL/min/1 .73m2 >OR = 60 N Glomerular filtration rate/1.73 sq M.predicted [Volume Rate/Area] in Serum, Plasma or Blood by Creatinine-based formula (MDRD) CREATININE 1.04 mg/dL 0.50-1.10 N Creatini ne [Mass/volume] in Serum or Plasma BUN 15 mg/dL 7-25 N Urea nitrogen [Mass/volume] in Serum or Plasma BG RANDOM 132 mg/dL 65-99 H Glucose [Mass/volume] in Blood URIC ACID 9.0 mg/dL 2.5-7.0 H Urate [Mass /volume] in Serum or Plasma CHOL/HDL % 3.9 (calc) < OR = 5.0 N chol esterol/HDL ratio, serum, percent LDL 145 MG/DL (CALC) mg/dL <130 H Cholesterol in L DL [Mass/volume] in Serum or Plasma - mg/dL TRIGLYCRDES 171 mg/dL <150 H Triglycer marquita [Mass/volume] in Serum or Plasma - mg/dL HDL 61 mg/dL >OR = 46 N Cholesterol in HDL [Mass/volume] in Serum or Plasma - mg/dL CHOLESTEROL 240 mg/dL 125-200 H Cholester ol [Mass/volume] in Serum or Plasma - mg/dL Lab Report: TSH W/REFLEX TO FT4 TSHREFLX FT4 1.78 m[iU]/L N TSH (thy roid stimulating hormone) with reflex FT4 Plan of Care Type Date Detail Referral Orthopedic Refer [facility], [address] [place] [address], [address] Pending order TSH reflex to fr ee T4 Pending order Other Pending Order exclud ed from report: Pending order HGBA1c Pending order CMP Pending order CBC with diff Pending order Lipid Panel Pending order TSH reflex to fr ee T4 Pending order Uric Acid Pending order CMP Pending order Lipid Panel Pending order HGBA1c Pending order TSH reflex to fr ee T4 Pending order CMP Pending order Lipid Panel Pending order TSH reflex to fr ee T4 Pending order HGBA1c Pending order Other Pending order MRI Spine Lumbar w-out contrast Pending order BMP Pending order CMP Pending order Lipid Panel Pending order X-Ray Knee Pending order Exercise Testing w Nuclear Medicine Pending order HGBA1c Pending order ECG tracing Mcar e (+code ECG reading sep) 17279 Pending order ECG reading Mcar e (+code ECG tracing sep) 18146 Pending order Accucheck 17959 Pending order CMP Pending order Lipid Panel Pending order HGBA1c Pending order TSH reflex to fr ee T4 Pending order [facility] (Out O rder) Pending order Pap Age age 21+ (Out Order) Pending order Urine Dip Manual 08586 Pending order Test 8 1025 Procedures Code Procedure Name Date Entry Date [facility] # TSH reflex to free T4 Other Other ORTHO COMMON Orthopedic Referral [facility] 20 20/05/11 85275 [facility] # Lipid Panel 6 76393 [facility] # TSH reflex to free T4 496 [facility] # HGBA1c 20690 [facility] # CMP 6 6399 [facility] # CBC with diff 6 905 [facility] # Uric Acid 496 [facility] # HGBA1c 59060 [facility] # TSH reflex to free T4 02729 [facility] # Lipid Panel 3 91638 [facility] # CMP 3 mri lumbar w-o edg MRI Spine Lumbar w-out contrast 201 02/05/11 42666 [facility] # TSH reflex to free T4 496 [facility] # HGBA1c 92433 [facility] # Lipid Panel 9 54022 [facility] # CMP 9 56388 [facility] # BMP 0 496 [facility] # HGBA1c 09335 [facility] # Lipid Panel 2 95815 [facility] # CMP 2 EX TEST NUC MED Exercise Testing w Nuclear Medicine 20 19/04/14 CPT-24177 ECG tracing Mcare (+ code ECG reading sep) 18926 CPT-79647 ECG reading Mcare (+ code ECG tracing sep) 73851 CPT-11244 Accucheck 03898 X-Ray Knee X-Ray Knee 74476 [facility] # CMP 7 13152 [facility] # Lipid Panel 7 496 [facility] # HGBA1c 04318 [facility] # TSH reflex to free T4 CPT-39918 Urine Dip Manual 03529 01/23 CPT-08062 Test 32383 CPT-19313 Donis Truong (Out Order) 01/23 96789 [facility] # Pap Age age 21+ (Out Order) Vital Signs Date Name Value Unit Description BMI (Body Mass Index) 54.78 kg/m2 Bod y Mass Index (Ratio) Body Temperature 98.8 [degF] temperat ure E&M Body Temperature 37.1 Carolyn temperat ure in centigrade E&M BP Diastolic 73 mm[Hg] blood pressu re, diastolic BP Systolic 107 mm[Hg] blood pressur e, systolic Heart Rate 102 /min pulse rate Height 162.56 cm height in cent imeters E&M Height 64 [in_us] height E&M Weight Measured 318 [lb_av] weight E& M Weight Measured 318 [lb_av] weight E& M Weight Measured 144.55 kg weight in kilograms E&M Heart Rate 88 /min pulse rate 10 Immunizations No information available. Advance Directives No information available.
--- OUTSIDE RECORDS SUMMARY | 2025-06-16 02:14 | XMS_ITS | Continuity of Care Document ---
Author Organization Jitendra CROFTMayra OD Address [facility] [place] [address] Phone Care Team Providers Care Tile Layer Name Role Phone Malinda Patterson MD Primary Care Provider Encounters Date Type Department Care Team Description 06/07/2025 Telephone [facility] [address] [place] [address] Malinda Patterson MD Prior Authorization 06/04/2025 Results Follow-Up [facility] [address] [place] [address] Belkys Ansari RN IRIS DIABETIC RETINOPATHY EXAM 06/04/2025 10:30 AM EDT Office Visit [facility] [address] [place] [address] Malinda Patterson MD Athlete's foot on left (Primary Dx); Diabetic [...] disease with esophagitis without hemorrhage; Leg cramps 05/31/2025 Patient Outreach [facility] [address] [facility] [place] [id number] Malinda Patterson MD Central Patient Navigator Outreach (Awv questionnaire) 04/12/2025 Nurse Triage [facility] [address] [place] [address] Malinda Patterson MD 04/10/2025 Travel 04/10/2025 10:43 AM EDT - 04/10/2025 1:02 PM EDT Emergency [facility] [place], [place] [id number] Bart Mcleod, Hypotension, unspecified hypotension type (Primary Dx) Discharge Disposition: Home or Self Care 04/10/2025 Telephone [facility] [address] [facility] [place] [address] Malinda Patterson MD 911/Red Flag (Low BP) 04/09/2025 Nurse Triage [facility] [address] [place] [address] Malinda Patterson MD 04/08/2025 Telephone [facility] [address] [place] [address] Malinda Patterson MD Refill (Lantus ) 04/02/2025 Refill [facility] [address] [facility] [address] [place] [address] Marshall Ovalle MD Medication Refill 04/02/2025 Refill [facility] [address] [address] Shauna Guardado, AIDAN Medication Refill 03/12/2025 Nurse Triage [facility] [address] [place] [place] [address] Mailnda Patterson MD 03/07/2025 Results Follow-Up [facility] [address] [place] [place] [address] Malinda Patterson MD COMPLIANCE PANEL, URINE 03/07/2025 Travel 03/07/2025 1:09 AM EDT - 03/07/2025 3:41 AM EDT Emergency [facility] [place] [address] Ly Hernández MD Postural dizziness with presyncope (Primary Dx) Discharge Disposition: Home or Self Care 03/05/2025 10:30 AM EDT Office Visit [facility] [address] [place] [address] Malinda Patterson MD Diabetic polyneuropathy associated with type 2 diabetes mellitus (HCC) (Primary Dx); Chronic bilateral low back pain without sciatica; Hypothyroidism, unspecified type; Type 2 diabetes mellitus with peripheral neuropathy (HCC); Encounter for long-term (current) use of high-risk medication; Type 2 diabetes mellitus without complication, unspecified whether long-term insulin use (HCC) 03/04/2025 Patient Outreach SEP [facility] [address] [place] [address] Malinda Patterson MD Central Patient Navigator Outreach (AWV Questionnaire/) 01/24/2025 Refill [facility] [address] [address] [place] [address] Marshall Ovalle MD Medication Refill 01/22/2025 Refill [facility] [address] [place] [address] Malinda Patterson MD Medication Refill 01/05/2025 Nurse Triage [facility] [address] [place] [address] Yuli Bruner, RN 01/04/2025 Nurse Triage [facility] [address] [place] [address] Shanae Jacobs RN 01/03/2025 Nurse Triage [facility] [address] [place] [address] Awilda Ross, HEATH 01/03/2025 Telephone [facility] [address] [address] Radha Rodriguez LPN Post-op Call 01/02/2025 Nurse Triage [facility] [place] [address] Awilda Ross RN 01/02/2025 Nurse Triage [facility] Nurse Now [facility] [place] [address] Shanae Jacobs RN 01/02/2025 Travel 01/02/2025 11:55 AM EST - 01/02/2025 1:25 PM EST Surgery [facility] [address] [place] [address] Yesi Junior MD POSTERIOR REPAIR (RECTOCELE REPAIR) 01/02/2025 11:55 AM EST Anesthesia Event [facility] [address] [place] [address] Zoltan Ricketts MD Collins, Angela, APRN 01/02/2025 7:42 AM EST - 01/02/2025 4:37 PM EST Hospital Encounter [facility] SAME DAY SURGERY [address] [place] [address] Yesi Junior MD Female genital prolapse, unspecified type; Rectocele; Cystocele, midline; EDITH (stress urinary incontinence, female) Discharge Disposition: Home or Self Care 01/01/2025 8:20 AM EST Office Visit [facility] [address] [place] [address] Malinda Patterson MD Pre-op examination (Primary Dx); Rectocele 12/26/2024 Orders Only [facility] Uro[facility]cology [address] [address] Radha Rodriguez LPN Female genital prolapse, unspecified type (Primary Dx); Rectocele; Cystocele, midline; EDITH (stress urinary incontinence, female) 12/26/2024 Telephone [facility] U[facility] [address] [address] Radha Rodriguez LPN Pre-op Call 12/26/2024 10:30 AM EST Office Visit [address] [place] [address] Marshall Ovalle MD Hyperlipidemia associated with type 2 diabetes mellitus (HCC) (Primary Dx); Type 2 diabetes mellitus with hyperglycemia, with long-term current use of insulin (HCC); Hypertension associated with type 2 diabetes mellitus (HCC); Acquired hypothyroidism 12/24/2024 Travel 12/11/2024 Telephone [facility] [address] [place] [address] Florencia Padilla RMA Post-op Call 12/06/2024 Travel 12/06/2024 2:10 PM EST - 12/06/2024 3:20 PM EST Surgery [facility] [address] [place] [address] Sree Howell MD LAPAROSCOPIC CHOLECYSTECTOMY POSSIBLE OPEN 12/06/2024 2:59 PM EST Anesthesia Event [facility] [address] [place] [address] Michael Haile MD Grimes, Samantha, APRN 12/06/2024 10:57 AM EST - 12/06/2024 6:30 PM EST Hospital Encounter [facility] POST ANESTHESIA [address] [place] [address] Sree Howell MD Calculus of gallbladder with chronic cholecystitis without obstruction Discharge Disposition: Home or Self Care 12/05/2024 Telephone [facility] [address] [place] [place] [address] Bernadette Rangel APRN Results 12/04/2024 1:02 PM EST - 12/04/2024 11:59 PM EST Hospital Encounter [facility] [address] [facility] [facility] [place] [address] [facility], [facility] Pre-op examination; Type 2 diabetes mellitus with peripheral neuropathy (HCC) Discharge Disposition: Home or Self Care 12/04/2024 11:15 AM EST Office Visit [facility] [address] [facility] [place] [address] Bernadette Rangel APRN Pre-op examination (Primary Dx); Calculus of gallbladder without cholecystitis without obstruction; Chronic heart failure, unspecified heart failure type (HCC); Type 2 diabetes mellitus with peripheral neuropathy (HCC); Obesity, Class III, BMI 40-49.9 (morbid obesity) (HCC) 12/03/2024 Telephone [facility] [address] [facility] [place] [address] Malinda Patterson MD Refill (multi) 11/27/2024 Travel 11/23/2024 Telephone [facility] [place] [address] [place] [address] Tommy Chappell MA Medication Refill (Oxybutynin) 11/01/2024 Telephone [facility]P Gen Surg [facility] [address] [facility] [address] [place] [address] Arely Harris, Clerical Staff Surgery 10/25/2024 11:30 AM EST Office Visit [facility] [address] [place] [address] Sree Howell MD Calculus of gallbladder with chronic cholecystitis without obstruction (Primary Dx); History of ventral hernia repair 10/22/2024 Refill [facility] [address] [facility] [place] [address] Asuncion Almaraz, Medication Refill 10/20/2024 Refill [facility] [address] [facility] [address] [facility] [place] [address] Asuncion Almaraz, Medication Refill; Central Patient Navigator Outreach (med refill 30 ) 10/15/2024 6:49 PM EST - 10/15/2024 9:16 PM EST Emergency [facility] [place] [address] Michael Perez DO Biliary calculus of other site without obstruction (Primary Dx); Hyperglycemia Discharge Disposition: Home or Self Care 09/27/2024 Telephone [facility] [address] [address] Radha Rodriguez LPN Surgery Scheduling 09/25/2024 Telephone [facility] [address] [address] Awilda Butler MA Medication Refill 09/24/2024 Telephone [facility] [address] [address] Sadaf Nugent, RMA Other 09/20/2024 11:30 AM EST Office Visit [facility] [address] Yesi Junior MD Stress incontinence (Primary Dx); Rectocele 09/18/2024 Refill [facility] [address] [facility] [place] [address] Malinda Patterson MD Medication Refill 09/11/2024 Patient Outreach [facility] [address] [place] [address] Ciera Quick RN Hospital Follow Up 09/07/2024 10:28 PM EDT - 09/10/2024 4:16 PM EST Hospital Encounter [facility]G [facility]D [facility] [place] [address] Shanae Elder MD Adler, Jordan M, MD Chest pain, unspecified type (Primary Dx); Abdominal pain, unspecified abdominal location; Calculus of gallbladder and bile duct without cholecystitis or obstruction; Elevated liver enzymes Discharge Disposition: Home or Self Care 09/07/2024 Travel 09/05/2024 Refill [facility] [address] [facility] [place] [address] Malinda Patterson MD Medication Refill 09/04/2024 Refill [facility] [address] [facility] [place] [address] Malinda Patterson MD Medication Refill 08/23/2024 Telephone [facility] [address] [place] [address] Marshall Ovalle MD Glucose Monitoring 08/23/2024 9:00 AM EDT Office Visit [facility] [address] [place] [address] Pam Fernandez LPN Type 2 diabetes mellitus with hyperglycemia, with long-term current use of insulin (HCC) (Primary Dx) 08/22/2024 Telephone [facility] [address] [place] [address] Marshall Ovalle MD Medication Refill 08/22/2024 Refill [facility] [address] [place] [address] Marshall Ovalle MD Medication Refill 08/22/2024 10:15 AM EDT Office Visit [facility] [address] [employer] [address] [address] Marshall Ovalle MD Type 2 diabetes mellitus with hyperglycemia, with long-term current use of insulin (HCC) (Primary Dx); Hyperlipidemia associated with type 2 diabetes mellitus (HCC); Hypertension associated with type 2 diabetes mellitus (HCC); Acquired hypothyroidism 08/21/2024 Refill [facility] [address] [place] [address] Malinda Patterson MD Medication Refill 08/13/2024 7:40 AM EDT Procedure visit [facility] [address] [address] Shauna Guardado APRN OAB (overactive bladder) (Primary Dx); Female genital prolapse, unspecified type; EDITH (stress urinary incontinence, female); Urinary frequency; Yeast dermatitis 07/25/2024 Telephone [facility] [address] [place] [address] Malinda Patterson MD Medication Management (Blood-Glucose Sensor (FREESTYLE ERIKA 3 SENSOR) Misc Device 4 Each 2 12/05/2023 - /Sig - Route: 1 Each by Misc.(Non-Drug; Combo Route) route every 14 days. - Misc.(Non-Drug; Combo Route) /Sent to pharmacy as: FreeStyle Erika 3 Sensor device (Blood-Glucose Sensor) /E-Prescribing Status: Receipt confirmed by pharmacy (12/05/2023 2:51 PM EST) //); 911/Red Flag (blood sugars); Other (meter update) 07/17/2024 2:30 PM EDT Office Visit [facility] [address] [phone] Yesi Junior MD Mixed incontinence (Primary Dx); Cystocele, midline; Frequency of urination; Morbid obesity with BMI of 50.0-59.9, adult (HCC); Chronic heart failure, unspecified heart failure type (HCC); Type 2 diabetes mellitus with peripheral neuropathy ([facility]); Ventral hernia, recurrent; Expressive aphasia; Dysarthria; Hyperlipidemia LDL goal <100; Acquired hypothyroidism; TIA (transient ischemic attack); Urinary frequency; Yeast dermatitis 07/12/2024 7:31 AM EDT - 07/12/2024 10:07 AM EDT Hospital Encounter [facility] [place] [address] [place] [address] [facility], [facility] One Type 2 diabetes mellitus with hyperglycemia, with long-term current use of insulin (HCC); Hyperlipidemia associated with type 2 diabetes mellitus (HCC); Hypertension associated with type 2 diabetes mellitus ([facility]); Acquired hypothyroidism Discharge Disposition: Home or Self Care 07/12/2024 10:08 AM EDT - 07/12/2024 11:59 PM EDT Hospital Encounter [facility] [address] [place] [address] Malinda Patterson MD Encounter for screening mammogram for breast cancer Discharge Disposition: Home or Self Care 07/11/2024 10:30 AM EDT Office Visit [facility] [address] [place] [address] Malinda Patterson MD Medicare annual wellness visit, subsequent (Primary Dx); Encounter for screening mammogram for breast cancer; Hypothyroidism, unspecified type; Leg cramps; Diabetic polyneuropathy associated with type 2 diabetes mellitus (HCC); Chronic bilateral low back pain without sciatica; Gastroesophageal reflux disease with esophagitis without hemorrhage; Type 2 diabetes mellitus with peripheral neuropathy (HCC); Chronic heart failure, unspecified heart failure type (HCC); Atherosclerosis of aorta; Vaginal prolapse; Urge incontinence of urine; Cervical cancer screening 07/10/2024 Patient Outreach [facility] [address] [place], [place] [phone] Malinda Patterson MD Central Patient Navigator Outreach (Awv questionnaire) 07/06/2024 Refill [facility] [address] [place] [address] Malinda Patterson MD Medication Refill 07/02/2024 Refill [facility] [address] [place] [address] Malinda Patterson MD Medication Refill 06/28/2024 Travel 06/28/2024 1:38 PM EDT - 06/28/2024 5:54 PM EDT Emergency [place] [address] Hunter Dueñas MD Periumbilical abdominal pain (Primary Dx) Discharge Disposition: Home or Self Care 06/28/2024 Refill [facility] [address] [place] [address] Malinda Patterson MD Medication Refill 06/18/2024 Refill [facility] [address] [place] [address] Malinda Patterson MD Medication Refill 06/04/2024 Refill [facility] [address] [place] [address] Malinda Patterson MD Medication Refill 06/03/2024 Refill [facility] [address] [place] [address] Malinda Patterson MD Medication Refill 05/31/2024 Refill [facility] [address] [place] [address] Malinda Patterson MD Medication Refill 05/28/[address] [place] [address] Marshall Ovalle MD Medication Management 05/28/2024 Refill [facility] [address] [place] [address] Malinda Patterson MD Medication Refill 05/26/2024 Refill [facility] [address] [facility] [place] [address] Malinda Patterson MD Medication Refill 05/24/2024 Patient Outreach [facility] [address] [place] [address] [address] App[place] [address] Ahmet Dc LPN ED Follow-Up Call 05/18/2024 Refill [facility] [address] [place] [place] [address] Malinda Patterson MD Medication Refill 05/16/2024 Nurse Triage [facility] [place] [address] Ady Dodson RN 05/16/2024 Travel 05/16/2024 10:27 AM EDT - 05/16/2024 10:51 AM EDT Emergency [place] [address] [place] [address] Ly Hernández MD Hyperglycemia (Primary Dx) Discharge Disposition: Home or Self Care 05/09/2024 Telephone [facility]P [facility] [place] [address] Barbara Reyes RN Medication Management 05/09/2024 Refill [facility] [address] [place] [address] Malinda Patterson MD Medication Refill 05/07/2024 10:15 AM EDT Office Visit [facility] [address] [place] [phone] Marshall Ovalle MD Type 2 diabetes mellitus with hyperglycemia, with long-term current use of insulin (HCC) (Primary Dx); Type 2 diabetes mellitus with peripheral neuropathy (HCC); Hyperlipidemia associated with type 2 diabetes mellitus (HCC); Hypertension associated with type 2 diabetes mellitus (HCC); Vaginal yeast infection 04/30/2024 Refill [facility] [address] [place] [address] Malinda Patterson MD Medication Refill 04/19/2024 Refill [facility] [address] [facility] [place] [address] Malinda Patterson MD Medication Refill 04/09/2024 Patient Outreach SEP [facility] [address] [facility] [address] [place] [address] Malinda Patterson MD Central Order Completion Outreach (mammogram ) 04/09/2024 9:00 AM EDT Office Visit [facility] [address] [facility] [address] [place] [address] Alicia Gallegos, TIRSO,LD Type 2 diabetes mellitus with hyperglycemia, with long-term current use of insulin (HCC) (Primary Dx) 03/22/2024 Refill [facility] [address] [place] [address] Malinda Patterson MD Medication Refill 03/14/2024 Refill [facility] [address] [place] [address] Malinda Patterson MD Medication Refill 03/02/2024 Patient Outreach [facility] [address] [place] [address] Mylene Dumont LPN CM- Telephonic Outreach; CM- Longitudinal Graduation 02/28/2024 Refill [facility] [address] [place] [address] Malinda Patterson MD Medication Refill 02/24/2024 1:00 PM EDT Office Visit [facility] [address] [facility] [address] [place] [phone] Heather Weller RN Type 2 diabetes mellitus with peripheral neuropathy (HCC) (Primary Dx) 02/18/2024 Refill [facility] [address] [place] [address] Malinda Patterson MD Medication Refill; Central Patient Navigator Outreach (Med refill 2nd) 02/13/2024 Refill [facility] [address] [place] [address] Malinda Patterson MD Medication Refill 02/09/2024 Refill [facility] [address] [place] [address] Malinda Patterson MD Medication Refill 02/02/2024 8:00 AM EDT Office Visit [facility] [address] [facility] [address] [place] [address] Marshall Ovalle MD Type 2 diabetes mellitus with hyperglycemia, with long-term current use of insulin (HCC) (Primary Dx); Hyperlipidemia associated with type 2 diabetes mellitus (HCC); Hypertension associated with type 2 diabetes mellitus (HCC); Acquired hypothyroidism 01/31/2024 Patient Outreach [facility] [address] [place] [address] Mylene Dumont LPN CM- Telephonic Outreach; CM- Longitudinal Continued (DM) 01/17/2024 Orders Only [facility] [address] [place] [address] Swathi Hart RMA Type 2 diabetes mellitus with peripheral neuropathy (HCC) 01/02/2024 Patient Outreach [facility] [address] [place] [address] Mylene Dumont LPN CM- Telephonic Outreach; CM- Longitudinal Continued 12/30/2023 Patient Outreach [facility] [address] [place] [address] Malinda Patterson MD Central Patient Navigator Outreach (AWV Exam Due) 12/22/2023 Refill [facility] [address] [place] [address] Malinda Patterson MD Medication Refill 12/19/2023 Refill [facility] [address] [place] [address] Malinda Patterson MD Medication Refill 12/08/2023 Telephone [facility] [address] [place] [address] Malinda Patterson MD Follow-up 12/05/2023 3:00 PM EST Office Visit [facility] [address] [place] [address] Mylene Dumont LPN Encounter for counseling for care management of patient with chronic conditions and complex health needs using nurse-based model (Primary Dx); Type 2 diabetes mellitus with peripheral neuropathy (HCC) 12/05/2023 2:20 PM EST Office Visit [facility] [address] [place] [address] Malinda Patterson MD Type 2 diabetes mellitus with peripheral neuropathy (HCC) (Primary Dx) 11/24/2023 Telephone [facility] [address] [place] [address] Malinda Patterson MD Other (insulin chart?) 11/23/2023 Travel 11/23/2023 9:07 AM EST - 11/23/2023 1:19 PM EST Emergency [facility] [place] [address] Graciela Sherman MD Elleman, Michael N, MD Hyperglycemia (Primary Dx); Influenza A; Lightheadedness Discharge Disposition: Home or Self Care 11/10/2023 Refill [facility] [address] [place] [address] Malinda Patterson MD Medication Refill 11/04/2023 Refill [facility] [address] [place] [address] Malinda Patterson MD Medication Refill 10/29/2023 Refill [facility] [address] [place] [address] Malinda Patterson MD Medication Refill 10/20/2023 Refill [facility] [address] [place] [address] Fokeagan, Asuncion, DO Medication Refill 10/20/2023 Refill [facility] [address] [place] [address] Foor, Asuncion, DO Medication Refill 10/04/2023 Refill [facility] [address] [place] [address] Foor, Asuncion, DO Medication Refill 10/04/2023 Patient Outreach SEP [facility] [address] [place], [place] [phone] Malinda Patterson MD Central Patient Navigator Outreach (A1c); Central Order Completion Outreach (Mammogram/) 10/03/2023 11:01 AM EST - 10/03/2023 11:59 PM EST Hospital Encounter [facility] [place] [address] [place], [place] [phone] [facility], Ed[facility] One Type 2 diabetes mellitus with peripheral neuropathy (HCC) Discharge Disposition: Home or Self Care 10/03/2023 10:00 AM EST Office Visit [facility] [address] [place] [address] Malinda Patterson MD Type 2 diabetes mellitus with peripheral neuropathy (HCC) (Primary Dx) 09/28/2023 Refill [facility] [address] [place] [address] Malinda Patterson MD Medication Refill 09/23/2023 11:00 AM EST Office Visit [facility] [address] [place] [address] Michaela Landon MD Person under investigation for COVID-19 (Primary Dx); Upper respiratory tract infection, unspecified type; Pleuritic chest pain 09/20/2023 Refill [facility] [address] [place] [address] FoSami boogiea, DO Medication Refill 09/16/2023 Refill SE[facility] [address] [place] [address] FoorSamia, DO Medication Refill 09/13/2023 Refill [facility] [address] [place] [address] FoorSamia, DO Medication Refill 09/12/2023 Refill [facility] [address] [place] [address] FoorSamia, DO Medication Refill 09/02/2023 3:15 PM EDT Telemedicine [facility] [address] [place] [address] Simone Franco, Vaginal yeast infection (Primary Dx); Morbid obesity with BMI of 50.0-59.9, adult (HCC); Type 2 diabetes mellitus with peripheral neuropathy (HCC) 09/02/2023 Telephone [facility] [address] [place] [address] Malinda Patterson MD Symptom Call (Itching and irritation in the vaginal area and under the arms) 09/02/2023 Refill [facility] [address] [place] [address] Malinda Patterson MD Medication Refill 08/09/2023 Patient Outreach [facility] [address] [place] [address] Malinda Patterson MD Central Order Completion Outreach (mammogram) 07/29/2023 Nurse Triage [facility] [address] [place] [address] Keesha Thacker RN 07/27/2023 9:40 AM EDT Office Visit [facility] [address] [place] [phone] Malinda Patterson MD Herpes zoster without complication (Primary Dx) 07/13/2023 Travel 07/13/2023 9:14 PM EDT - 07/13/2023 11:02 PM EDT Emergency [facility] [place] [address] Darwin Martínez MD Lumbar back pain (Primary Dx) Discharge Disposition: Home or Self Care 07/06/2023 Telephone [facility] [address] [place] [phone] Malinda Patterson MD Medication Management (novolog) 07/02/2023 Refill [facility] [address] [place] [address] Malinda Patterson MD Medication Refill 06/29/2023 Telephone [facility] [address] [place] [address] Malinda Patterson MD Schedule Appointment (2nd attempt to reach patient/) 06/28/2023 Telephone [facility] [address] [place] [address] Malinda Patterson MD Medication Management (Insulin Syringes for insulin aspart U-100 (NOVOLOG U-100 INSULIN ASPART).) 06/27/2023 Telephone [facility] [address] [place] [address] Malinda Patterson MD Schedule Appointment 06/24/2023 Telephone [facility] [address] [address] Malinda Patterson MD Medication Management (yeast infection ) 06/24/2023 10:30 AM EDT Office Visit [facility] [address] [place] [address] Malinda Patterson MD Type 2 diabetes mellitus with peripheral neuropathy (HCC) (Primary Dx); Chronic heart failure, unspecified heart failure type (HCC); Yeast infection; Encounter for screening mammogram for breast cancer; Noncompliance 06/23/2023 Orders Only [facility] [address] [place] [address] Malinda Patterson MD Yeast infection (Primary Dx); Type 2 diabetes mellitus with peripheral neuropathy (HCC) 06/21/2023 Telephone [facility] [address] [place] [address] Malinda Patterson MD Medication Management (petrolatum,white (ILEX/DERMAPHOR) 1 Each 2 06/21/2023 /Sig - Route: Apply 1 g topically 2 times daily. Thin layer twice daily to affected skin. Largest tube available - Topical //) 06/21/2023 11:51 AM EDT - 06/21/2023 11:59 PM EDT Hospital Encounter [facility] [place] [address] [place] [address] Click, [facility] Type 2 diabetes mellitus with peripheral neuropathy (HCC) Discharge Disposition: Home or Self Care 06/21/2023 10:40 AM EDT Office Visit [facility] [place] [facility] [address] [place] [address] Malinda Patterson MD Vaginal yeast infection (Primary Dx); Vaginal irritation; Type 2 diabetes mellitus with peripheral neuropathy (HCC) 06/19/2023 Refill [facility] [address] [place] [address] Asuncion Almaraz, DO Medication Refill 06/17/2023 Telephone [facility] [address] [place] [phone] Malinda Patterson MD Medication Refill 06/14/2023 Refill [facility] [address] [place] [address] Asuncion Almaraz, DO Medication Refill 06/13/2023 Refill [facility] [address] [place] [address] Malinda Patterson MD Medication Refill 05/25/2023 Refill [facility] [address] [place] [address] Malinda Patterson MD Medication Refill 05/17/2023 Refill [facility] [address] [place] [address] FoSami boogiea, DO Medication Refill 05/12/2023 Refill [facility] [address] [place] [address] FoorSamia, DO Medication Refill 05/11/2023 Refill [facility] [address] [place] [address] Foor, Asuncion, DO Medication Refill; Central Patient Navigator Outreach (care gap: awv/mammo) 05/09/2023 Refill [facility] [address] [place] [address] Malinda Patterson MD Medication Refill 04/28/2023 Telephone [facility] [address] [place] [address] Malinda Patterson MD Medication Refill 04/20/2023 Refill [facility] [address] [place] [address] Malinda Patterson MD Medication Refill 04/17/2023 Refill [facility] [address] [place] [address] Malinda Patterson MD Medication Refill 04/11/2023 Refill [facility] [address] [place] [address] Asuncion Almaraz, DO Medication Refill 04/08/2023 Refill [facility] [address] [place] [address] Malinda Patterson MD Medication Refill 04/08/2023 Refill [facility] [address] [place] [address] FoSami boogiea, DO Medication Refill; Central Patient Navigator Outreach (Med refill 2nd) 04/06/2023 Telephone [facility] [address] [place] [address] Malinda Patterosn MD Insurance Verification 03/25/2023 3:15 PM EDT Office Visit [facility] [address] [place] [phone] Bernadette Rangel APRN UTI (urinary tract infection), uncomplicated (Primary Dx); Vagina itching; Pelvic pressure in female 03/25/2023 Telephone [facility] [address] [place] [address] Malinda Patterson MD Symptom Call 03/20/2023 Refill [facility] [address] [place] [address] Asuncion Almaraz, DO Medication Refill 03/20/2023 Refill [facility] [address] [place] [address] Malinda Patterson MD Medication Refill 03/08/2023 Refill [facility] [address] [place] [address] Asuncion Almaraz, DO Medication Refill 03/08/2023 Refill [facility] [address] [place] [address] Asuncion Almaraz, DO Medication Refill; Central Patient Navigator Outreach (med refills 1st ) 03/08/2023 Refill [facility] [address] [place] [address] Malinda Patterson MD Medication Refill 02/19/2023 Refill [facility] [address] [place] [address] Yesenia, Malinda Enriquez MD Medication Refill 02/13/2023 Refill [facility] [address] [place] [address] Yesenia, Malinda Enriquez MD Medication Refill 02/07/2023 Refill [facility] [address] [place] [address] Yesenia, Malinda Enriquez MD Medication Refill 02/05/2023 Refill [facility] [address] [place] [address] Yesenia, Malinda Enriquez MD Medication Refill 01/17/2023 Refill [facility] [address] [place] [address] Yesenia, Malinda Enriquez MD Medication Refill 01/16/2023 Refill [facility] [address] [place] [address] Yesenia, Malinda Enriquez MD Medication Refill 01/07/2023 Refill [facility] [address] [place] [address] Yesenia, Malinda Enriquez MD Medication Refill 12/29/2022 Refill [facility] [address] [place] [address] Asuncion Almaraz DO Medication Refill 12/28/2022 Patient Outreach [facility] [address] [place] [address] Mylene Dumont LPN CM- Telephonic Outreach; CM-Resource Coordination 12/27/2022 Orders Only [facility] [address] [place] [address] Swathi Hart Veena Type 2 diabetes mellitus with peripheral neuropathy (HCC) (Primary Dx) 12/27/2022 Refill [facility] [address] [place] [address] Malinda Patterson MD Medication Refill 12/24/2022 Telephone [facility] [address] [place] [address] Malinda Patterson MD Medication Refill (ergocalciferol (VITAMIN D) 1,250 mcg (50,000 unit) Oral Capsule) 12/23/2022 Patient Outreach [facility] [address] [place] [address] Malinda Patterson MD Central Order Completion Outreach (mammogram ) 12/22/2022 Telephone [facility] [place] [facility] [address] [address] Emilee Munoz RMA Referral 12/22/2022 Travel 12/22/2022 10:15 AM EST - 12/22/2022 11:59 PM EST Hospital Encounter [facility] [place] [address] [facility] [place] [address] Click, [facility] Hypothyroidism, unspecified type; Atherosclerosis of aorta; Chronic heart failure, unspecified heart failure type (HCC); Type 2 diabetes mellitus with peripheral neuropathy (HCC) Discharge Disposition: Home or Self Care 12/22/2022 8:50 AM EST Office Visit [facility] [address] [place] [place] [address] Malinda Patterson MD Diabetic polyneuropathy associated with type 2 diabetes mellitus (HCC) (Primary Dx); Chronic bilateral low back pain without sciatica; Type 2 diabetes mellitus with peripheral neuropathy (HCC); Chronic heart failure, unspecified heart failure type (HCC); Atherosclerosis of aorta; Body mass index (BMI) 50.0-59.9, adult (HCC); Hypothyroidism, unspecified type; High risk medications (not anticoagulants) long-term use; Encounter for screening mammogram for breast cancer 12/09/2022 Telephone [facility] [address] [place] [address] Malinda Patterson MD Medication Management (omeprazole (PRILOSEC) 20 mg Oral Capsule) 12/02/2022 Refill [facility] [address] [place] [address] Asuncion Almaraz, DO Medication Refill 12/01/2022 Refill [facility] [address] [place] [address] Asuncion Almaraz, DO Medication Refill 11/22/2022 Refill [facility] [address] [place] [address] Michaela Landon MD Medication Refill 11/17/2022 Refill [facility] [address] [place] [address] Michaela Landon MD Medication Refill 11/16/2022 Refill [facility] [address] [place] [address] Michaela Landon MD Medication Refill 11/16/2022 Refill [facility] [address] [place] [address] Malinda Patterson MD Medication Refill 11/16/2022 Refill [facility] [address] [place] [address] Asuncion Almaraz, DO Medication Refill 11/05/2022 Refill [facility] [address] [facility] [place] [address] Malinda Patterson MD Medication Refill 11/05/2022 Telephone [facility] [address] [place] [address] Malinda Patterson MD Medication Refill (omega 3) 11/05/2022 Refill [facility] [address] [place] [address] Malinda Patterson MD Medication Refill 11/03/2022 Refill [facility] [address] [place] [address] Asuncion Almaraz, DO Medication Refill 11/02/2022 Refill [facility] [address] [place] [address] Asuncion Almaraz, DO Medication Refill 10/21/2022 Travel 10/21/2022 1:20 PM EST - 10/21/2022 1:40 PM EST Surgery [facility] [address] [place] [address] Nicolas Rowland MD COLONOSCOPY-ENDO DEPT ONLY (ANESTHESIA) 10/21/2022 1:35 PM EST Anesthesia Event [facility] [address] [place] [address] Lacy Shaw MD Powell, Jeanne, BONE CHAR OPERATOR 10/21/2022 11:41 AM EST - 10/21/2022 2:30 PM EST Hospital Encounter [facility] [address] [place] [address] Nicolas Rowland MD Screening for colon cancer Discharge Disposition: Home or Self Care 10/18/2022 Refill [facility] [address] [place] [address] Malinda Patterson MD Medication Refill 10/16/2022 Refill [facility] [address] [place] [address] Malinda Patterson MD Medication Refill 10/14/2022 Telephone [facility] [address] [place] [address] Malinda Patterson MD Advice Only (BP is low after taking meds) 10/06/2022 3:10 PM EST Office Visit [facility] [address] [place] [address] Malinda Patterson MD [id number] condition (Primary Dx); Diabetic polyneuropathy associated with type 2 diabetes mellitus (HCC); Chronic bilateral low back pain without sciatica; Type 2 diabetes mellitus without complication, unspecified whether press tender long goods insulin use (HCC) 10/04/2022 Refill [facility] [address] [place] [address] Asuncion Almaraz, DO Medication Refill 10/01/2022 Refill [facility] [address] [place] [address] Asuncion Almaraz, DO Medication Refill 09/25/2022 Refill [facility] [address] [place] [phone] Malinda Patterson MD Medication Refill 09/24/2022 Telephone [facility] [address] [place] [address] Malinda Patterson MD Other (cough syrup ); Medication Management (benzonatate (TESSALON) 100 mg Oral Capsule 14 Capsule 0 09/22/2022 10/22/2022 /Sig - Route: Take 2 Capsules by mouth 3 times daily as needed for Cough for up to 30 days. - Oral //) 09/24/2022 Refill [facility] [address] [place] [address] Malinda Patterson MD Medication Refill 09/23/2022 Refill [facility] [address] [place] [address] Malinda Patterson MD Medication Refill; Covid Follow Up 09/22/2022 11:48 AM EST - 09/22/2022 1:33 PM EST Emergency [place] [address] Juan Nguyễn MD COVID-19 (Primary Dx) Discharge Disposition: Home or Self Care 09/22/2022 Nurse Triage [address] [place] [address] Vanesa Marley, HEATH 09/16/2022 Telephone [facility] [address] [place] [address] Malinda Patterson MD Appointment Needed; Medication Refill 09/11/2022 Refill [facility] [address] [place] [address] Malinda Patterson MD Medication Refill 08/23/2022 Refill [facility] [address] [place] [address] Michaela Landon MD Medication Refill 08/17/2022 Refill [facility] [address] [place] [address] Malinda Patterson MD Medication Refill 07/29/2022 Telephone [facility] [address] [facility] [place] [address] [place] [address] Aldo Lion MD Medication Management (Colyte ) 07/29/2022 Telephone [facility] [address] [place] [address] Malinda Patterson MD Visit Follow Up 07/19/2022 Refill [facility] [address] [place] [address] Asuncion Almaraz, DO Medication Refill 07/19/2022 Refill [facility] [address] [place] [address] Malinda Patterson MD Medication Refill 07/12/2022 Refill [facility] [address] [place] [address] Malinda Patterson MD Medication Refill 07/08/2022 Telephone [facility] [address] [place] [address] Malinda Patterson MD Medication Management (Vit D) 06/30/2022 Orders Only [facility] [address] [place] [address] Adore Pruitt MA Hypothyroidism, unspecified type (Primary Dx) 06/28/2022 11:30 AM EDT Office Visit [facility] [address] [place] [phone] Mylene Dumont LPN Encounter for counseling for care management of patient with chronic conditions and complex health needs using nurse-based model (Primary Dx) 06/28/2022 Travel 06/28/2022 11:47 AM EDT - 06/28/2022 11:59 PM EDT Hospital Encounter [facility] [place] [address] [place] [address] Click, [facility] Type 2 diabetes mellitus with peripheral neuropathy (HCC); Hypothyroidism, unspecified type; Hyperlipidemia LDL goal <100; Annual physical exam; Post-menopausal Discharge Disposition: Home or Self Care 06/28/2022 10:40 AM EDT Office Visit [facility] [address] [place] [phone] Malinda Patterson MD Annual physical exam (Primary Dx); Diabetic polyneuropathy associated with type 2 diabetes mellitus (HCC); Chronic bilateral low back pain without sciatica; Type 2 diabetes mellitus with peripheral neuropathy (HCC); Hypothyroidism, unspecified type; Hyperlipidemia LDL goal <100; Encounter for colorectal cancer screening; Post-menopausal 06/23/2022 Patient Outreach [facility] [address] [place] [address] Mylene Dumont LPN CM- Telephonic Outreach; CM-Resource Coordination 06/20/2022 Refill [facility] [address] [place] [address] Asuncion Almaraz DO Medication Refill 06/18/2022 Telephone [facility] [address] [place] [address] Malinda Ptaterson MD Medication Management (DM supplies and medication) 06/15/2022 Refill [facility] [address] [place] [address] Malinda Patterson MD Medication Refill 06/14/2022 Refill [facility] [address] [place] [address] Malinda Patterson MD Medication Refill 06/09/2022 Telephone [facility] [address] [address] Celina Stone, RN Schedule Appointment 06/01/2022 2:00 PM EDT Telemedicine [facility] [address] [place] [address] Mylene Dumont LPN Encounter for counseling for care management of patient with chronic conditions and complex health needs using nurse-based model (Primary Dx) 05/31/2022 Refill [facility] [address] [place] [address] Malinda Patterson MD Medication Refill 05/28/2022 Refill [facility] [address] [place] [address] Malinda Patterson MD Medication Refill 05/16/2022 Refill [facility] [address] [place] [address] Malinda Patterson MD Medication Refill 05/11/2022 Refill [facility] [address] [place] [phone] Malinda Patterson MD Medication Refill 04/16/2022 Refill [facility] [address] [place] [address] Malinda Patterson MD Medication Refill 04/16/2022 Refill [facility] [address] [place] [address] King Joyce MD Medication Refill 04/16/2022 Refill [facility] [address] [place] [address] King Joyce MD Medication Refill 04/15/2022 Refill [facility] [address] [place] [address] Michaela Landon MD Medication Refill 04/14/2022 Refill [facility] [address] [place] [address] Michaela Landon MD Central Patient Navigator Outreach (Med Refill 1st) 04/14/2022 Refill [facility] [address] [place] [address] Malinda Patterson MD Medication Refill 04/13/2022 Patient Outreach [facility] [address] [place] [address] Mylene Dumont LPN CM- Telephonic Outreach; CM- Longitudinal Continued (DM- A1C- 8.2 on 11/09/2021) 04/09/2022 Refill [facility] [address] [place] [address] Malinda Patterson MD Medication Refill 03/30/2022 Telephone [facility] [address] [place] [address] Malinda Patterson MD Medication Management (LEVOthyroxine (SYNTHROID) 150 mcg Oral Tablet) 03/30/2022 Refill [facility] [address] [place] [address] Malinda Patterson MD Medication Refill (gabapentin (NEURONTIN) 300 mg Oral Capsule, omeprazole (PRILOSEC) 20 mg Oral Capsule, , aspirin 81 mg Oral Tablet, ) 03/17/2022 Refill [facility] [address] [place] [address] Michaela Landon MD Medication Refill 02/23/2022 Refill [facility] [address] [place] [address] Malinda Patterson MD Medication Refill 02/16/2022 Refill [facility] [address] [place] [address] Malinda Patterson MD Medication Refill 02/15/2022 Refill [facility] [address] [place] [address] Malinda Patterson MD Medication Refill 02/11/2022 Patient Outreach [facility] [address] [place] [address] Mylene Dumont LPN CM- Telephonic Outreach; CM- Longitudinal Continued (DM- A1C- 8.2 on 11/09/2021); CM- Telephonic Outreach 02/10/2022 Telephone [facility] [address] [place] [address] Malinda Patterson MD Medication Management (dulaglutide (TRULICITY) 0.75 mg/0.5 mL SubQ Pen Injector6 mL25/01/2022) 02/10/2022 Refill [facility] [address] [place] [address] Malinda Patterson MD Medication Refill 01/31/2022 Refill [facility] [address] [place] [address] Malinda Patterson MD Medication Refill 01/28/2022 Refill [facility] [address] [place] [address] Malinda Patterson MD Medication Refill 01/28/2022 Refill [facility] [address] [place] [address] Malinda Patterson MD Medication Refill 01/25/2022 Refill [facility] [address] [place] [address] aMlinda Patterson MD Medication Refill 01/18/2022 Refill [facility] [address] [place] [address] Michaela Landon MD Medication Refill 01/11/2022 Refill [facility] [address] [place] [address] Michaela Landon MD Medication Refill 01/10/2022 Refill [facility] [address] [place] [address] Malinda Patterson MD Medication Refill 01/09/2022 Refill [facility] [address] [place] [address] Malinda Patterson MD Medication Refill 01/04/2022 1:30 PM EST Telemedicine [facility] [address] [place] [phone] Mylene Dumont LPN Enrolled in chronic care management (Primary Dx); Type 2 diabetes mellitus with peripheral neuropathy (HCC) 01/04/2022 Refill [facility] [address] [place] [address] Malinda Patterson MD Medication Refill 12/25/2021 Refill [facility] [address] [place] [address] Malinda Patterson MD Medication Refill 12/22/2021 Refill [facility] [address] [place] [phone] Malinda Patterson MD Medication Refill (strips, lancets, and bridget pen needle) 12/21/2021 Patient Outreach [facility] [address] [place] [address] Hilda Hoffman, SCULLION CHIEF Follow-Up Call 12/18/2021 Travel 12/18/2021 5:59 PM EST - 12/18/2021 9:42 PM EST Emergency [facility] [place] [address] Dev Sam MD Syncope, unspecified syncope type (Primary Dx); Bronchitis Discharge Disposition: Home or Self Care 12/15/2021 Telephone [facility] [address] [place] [address] Malinda Patterson MD Other 12/02/2021 Patient Outreach [facility] [address] [place] [address] Mylene Dumont LPN CM- Telephonic Outreach (Freestyle Erika f/u) 11/28/2021 Refill [facility] [address] [place] [address] Malinda Patterson MD Medication Refill 11/09/2021 12:30 PM EST Office Visit [facility] [address] [place] [address] Mylene Dumont LPN Type 2 diabetes mellitus with peripheral neuropathy (HCC) (Primary Dx) 11/09/2021 Travel 11/09/2021 11:50 AM EST Office Visit [facility] [address] [place] [address] Malinda Patterson MD Type 2 diabetes mellitus with peripheral neuropathy (HCC) (Primary Dx); Atherosclerosis of aorta; Body mass index (BMI) 45.0-49.9, adult (HCC) 11/04/2021 Refill [facility] [address] [place] [address] Malinda Patterson MD Medication Refill 10/26/2021 11:45 AM EST Telemedicine [facility] [address] [place] [address] Mylene Dumont LPN Type 2 diabetes mellitus with peripheral neuropathy (HCC) (Primary Dx) 10/24/2021 Refill [facility] [address] [place] [address] Malinda Patterson MD Medication Refill 10/18/2021 Refill [facility] [address] [place] [address] Michaela Landon MD Medication Refill 10/13/2021 Refill [facility] [address] [place] [address] Malinda Patterson MD Medication Refill (gabapentin / aspirin ) 10/05/2021 Travel 10/05/2021 9:10 AM EST Office Visit [facility] [address] [place] [address] Malinda Pattersno MD Hospital discharge follow-up (Primary Dx); Atherosclerosis of aorta; COVID-19 virus infection 10/01/2021 Refill [facility] [address] [place] [address] Malinda Patterson MD Medication Refill 09/28/2021 Patient Outreach [facility] [address] [place] [address] Yesi Aviles RN Hospital Follow Up 09/24/2021 11:26 AM EST - 09/26/2021 12:06 PM EST Hospital Encounter [facility] [address] [place] [address] Latonya Washington MD Discharge Disposition: Home or Self Care 09/24/2021 Patient Outreach [facility] [address] [place] [address] Ahmet Dc LPN ED Follow-Up Call 09/24/2021 Travel 09/24/2021 2:19 AM EST - 09/24/2021 10:52 AM EST Emergency [facility] [place] [address] Golden Rodriguez MD Fry, Isaiah J, MD Acute respiratory failure with hypoxemia (HCC) (Primary Dx); Pneumonia due to COVID-19 virus; Type 2 diabetes mellitus with peripheral neuropathy (HCC); Morbid obesity with BMI of 50.0-59.9, adult (HCC) Discharge Disposition: Discharged/Transferre d [facility] w/planned [facility] IP ReAdmit 09/22/2021 Travel 09/22/2021 Patient Outreach [facility] [address] [place] [address] Marie Willis BS, COS ED Follow-Up Call 09/22/2021 1:30 PM EST - 09/22/2021 11:59 PM EST Hospital Encounter [facility] [address] [place], [place] [id number] COVID-19 (Primary Dx) Discharge Disposition: Home or Self Care 09/21/2021 Orders Only [place] [address] Vincent Cortés, PharmD COVID-19 09/21/2021 1:45 PM EST Telemedicine [facility] [address] [facility] [place] [address] Michaela Landon MD COVID-19 virus infection (Primary Dx); SOB (shortness of breath); Heart failure (HCC); Postinfectious hypothyroidism 09/21/2021 Travel 09/21/2021 1:25 AM EST - 09/21/2021 3:39 AM EST [facility] [place] [address] Dc Sherman MD COVID-19 (Primary Dx); Viral syndrome; Generalized weakness Discharge Disposition: Home or Self Care 09/18/2021 Patient Outreach SEP [facility] [address] [place] [address] Marie Willis BS, COS ED Follow-Up Call 09/17/2021 12:37 PM EST - 09/17/2021 6:03 PM EST Emergency [facility] [place] [address] Contreras Jones MD Vertigo (Primary Dx); Generalized weakness; Cough; Generalized body aches; Upper respiratory tract infection, unspecified type Discharge Disposition: Home or Self Care 09/01/2021 Patient Outreach [facility] [address] [facility] [place] [address] Mylene Dumont LPN CM- Telephonic Outreach; CM- Longitudinal Continued 08/31/2021 Telephone [facility] [address] [facility] [place] [address] Malinda Patterson MD Visit Follow Up (EYE EXAM); Follow-up (eye exam) 08/20/2021 Patient Outreach [facility] [address] [place] [address] Mylene Dumont LPN CM- Telephonic Outreach; CM- Longitudinal Continued 08/20/2021 Refill [facility] [address] [place] [address] Malinda Patterson MD Medication Refill 08/15/2021 Refill [facility] [address] [place] [address] Malinda Patterson MD Medication Refill 08/08/2021 Refill [facility] [address] [place] [address] Malinda Patterson MD Medication Refill 07/24/2021 Refill [facility] [address] [place] [address] Malinda Patterson MD Medication Refill 07/21/2021 Patient Outreach [facility] [address] [place] [address] Mylene Dumont LPN CM- Telephonic Outreach; CM- Longitudinal Continued 06/24/2021 11:15 AM EDT Office Visit [facility] [address] [place] [address] Mylene Dumont LPN Type 2 diabetes mellitus with peripheral neuropathy (HCC) (Primary Dx) 06/24/2021 Travel 06/24/2021 Refill [facility] [address] [place] [address] Malinda Patterson MD Medication Refill 06/24/2021 10:30 AM EDT Office Visit [facility] [address] [place] [address] Malinda Pattersno MD Type 2 diabetes mellitus with peripheral neuropathy (HCC) (Primary Dx); Noncompliance; Diabetic polyneuropathy associated with type 2 diabetes mellitus (HCC); Chronic bilateral low back pain without sciatica 06/21/2021 Refill [facility] [address] [place] [address] Malinda Patterson MD Medication Refill 06/17/2021 Refill [facility]P [facility] [address] [place] [address] Malinda Patterson MD Medication Refill 06/09/2021 Refill [facility] [address] [place] [address] Malinda Patterson MD Medication Refill 05/26/2021 Refill [facility] [address] [place] [address] Malinda Patterson MD Medication Refill 05/22/2021 Telephone [facility] [address] [place] [address] Malinda Patterson MD Visit Follow Up (eye exam) 05/16/2021 Refill [facility] [address] [place] [address] Malinda Patterson MD Medication Refill 04/30/2021 Travel 04/30/2021 1:00 PM EDT Office Visit [facility] [address] [facility] [place] [address] King Joyce MD TIA (transient ischemic attack) (Primary Dx); Dyslipidemia; Morbid obesity with BMI of 50.0-59.9, adult (HCC) 04/22/2021 Refill [facility] [address] [place] [address] Malinda Patterson MD Medication Refill 04/19/2021 Refill [facility]P [facility] [address] [place] [address] Malinda Patterson MD Medication Refill 04/15/2021 Refill [facility] [address] [place] [address] Malinda Patterson MD Medication Refill 04/10/2021 Refill [facility] [address] [place] [address] Malinda Patterson MD Medication Refill 04/08/2021 Patient Outreach [facility] [address] [place] [address] Lucia Dueñas, [facility] Medication Management (Clinical Tank Stave Assembler: [facility] [phone]) 04/03/2021 Patient Outreach [facility] [address] [place] [address] Surekha Momin, [facility] Medication Management (SEP Clinical Certified Pharmacy Technicians [facility] [phone]) 04/01/2021 Telephone [facility]P [facility] [address] [place] [address] Malinda Patterson MD Other (Patient trying to reach Mylene for diabetic education on items she can eat and items she cannot. Please advise.); CM- Telephonic Outreach 04/01/2021 Refill [facility] [address] [place] [address] Malinda Patterson MD Medication Refill 03/31/2021 Telephone [facility] [address] [place] [address] Malinda Patterson MD Other (Refill Strips for testing) 03/30/2021 11:00 AM EDT Office Visit [facility] [address] [place] [address] Mylene Dumont LPN Type 2 diabetes mellitus with peripheral neuropathy (HCC) (Primary Dx) 03/30/2021 Patient Outreach SEP [facility] [address] [place] [address] Yumiko Jara, RN Hospital Follow Up; Hospital Follow Up 03/30/2021 Orders Only [facility] [place] [address] Jessica Vega Nathanael Medication management (Primary Dx) 03/30/2021 10:00 AM EDT Office Visit [facility] [address] [place] [address] Malinda Patterson MD Hospital discharge follow-up (Primary Dx); Type 2 diabetes mellitus with peripheral neuropathy (HCC); History of TIA (transient ischemic attack); Diabetic polyneuropathy associated with type 2 diabetes mellitus (HCC); Chronic bilateral low back pain without sciatica 03/29/2021 Travel 03/29/2021 Nurse Triage SEP [address] [place] [address] Sherri Verma RN 03/28/2021 Travel 03/26/2021 3:14 PM EDT - 03/28/2021 7:39 PM EDT Hospital Encounter [facility] [facility] [place] [address] Starla Harris MD Martin, K. Andrew, MD TIA (transient ischemic attack) (Primary Dx); Type 2 diabetes mellitus with peripheral neuropathy (HCC); Diabetic polyneuropathy associated with type 2 diabetes mellitus (HCC); Chronic bilateral low back pain without sciatica Discharge Disposition: Home or Self Care 03/26/2021 Travel 03/24/2021 Refill [facility] [address] [place] [address] Malinda Patterson MD Medication Refill 03/15/2021 Refill [facility] [address] [place] [address] Malinda Patterson MD Medication Refill 03/10/2021 Refill [facility] [address] [place] [address] Malinda Patterson MD Medication Refill 03/06/2021 Refill [facility] [address] [place] [address] Malinda Patterson MD Medication Refill 03/03/2021 Travel 03/03/2021 10:50 AM EDT Office Visit [facility] [address] [place] [address] Malinda Patterson MD Medicare annual wellness visit, initial (Primary Dx); Diabetic polyneuropathy associated with type 2 diabetes mellitus (HCC); Chronic bilateral low back pain without sciatica; Type 2 diabetes mellitus with peripheral neuropathy (HCC); Chronic heart failure, unspecified heart failure type (HCC); Gastroesophageal reflux disease with esophagitis without hemorrhage; Hyperlipidemia LDL goal <100; Encounter for long-term (current) use of medications; Dysuria; Leg cramps; Urinary frequency 02/23/2021 Travel 02/23/2021 Refill [facility] [address] [place] [address] Malinda Patterson MD Medication Refill 02/19/2021 Refill [facility] [address] [place] [address] Malinda Patterson MD Medication Refill 02/04/2021 Telephone [facility] [address] [place] [address] Malinda Patterson MD Results (CT Scan) 02/03/2021 Travel 02/03/2021 1:10 PM EDT Telemedicine [facility] [address] [place] [address] Malinda Patterson MD Acute non-recurrent sinusitis, unspecified location (Primary Dx) 02/02/2021 Travel 01/30/2021 Travel 01/30/2021 Telephone [facility] [address] [place] [address] Malinda Patterson MD Symptom Call (Sinus Congestion/Allergies x3 days ) 01/07/2021 9:00 AM EST - 01/07/2021 11:59 PM EST Hospital Encounter [facility] [address] [place] [address] Angela Merida MD Incisional hernia, without obstruction or gangrene Discharge Disposition: Home or Self Care 01/02/2021 Travel 01/02/2021 9:00 AM EST Office Visit SEP [facility] [address] [facility] [address] [place] [address] Angela Merida MD Incisional hernia, without obstruction or gangrene (Primary Dx) 01/01/2021 Telephone SEP [facility] [address] [place] [address] Malinda Patterson MD Other (Hernia) 01/01/2021 12:45 PM EST - 01/01/2021 11:59 PM EST Hospital Encounter [facility] Mammography [address] [id number] Malinda Patterson MD Encounter for screening mammogram for malignant neoplasm of breast Discharge Disposition: Home or Self Care 01/01/2021 Travel 12/29/2020 Telephone [facility]P [facility] [address] [place] [address] Malinda Patterson MD Visit Follow Up 12/25/2020 Refill [facility] [address] [place] [address] Malinda Patterson MD Medication Refill 12/22/2020 Refill [facility] [address] [place] [address] Malinda Patterson MD Medication Refill 12/14/2020 Refill [facility] [address] [place] [address] Malinda Patterson MD Medication Refill 12/09/2020 Telephone [facility] [address] [place] [address] Malinda Patterson MD Medication Refill 12/07/2020 Refill [facility] [address] [place] [address] Malinda Patterson MD Medication Refill 11/26/2020 Telephone [facility] [address] [place] [address] Malinda Patterson MD Non-scheduled Referral 11/24/2020 Telephone [facility] [address] [place] [address] Malinda Patterson MD Medication Refill 11/12/2020 Telephone [facility] [address] [place] [address] Malinda Patterson MD Symptom Call (burning while urinating) 11/12/2020 Telephone [facility] [address] [place] [address] Malinda Patterson MD Medication Management 11/12/2020 11:00 AM EST - 11/12/2020 11:59 PM EST Hospital Encounter [facility] [place] [address] [place] [address] [facility] Postinfectious hypothyroidism; Hyperlipidemia LDL goal <100; Type 2 diabetes mellitus with peripheral neuropathy (HCC); Heart failure (HCC) Discharge Disposition: Home or Self Care 11/12/2020 Travel 11/12/2020 9:30 AM EST Office Visit [facility] [address] [place] [address] Malinda Patterson MD Type 2 diabetes mellitus with peripheral neuropathy (HCC) (Primary Dx); Postinfectious hypothyroidism; Gastroesophageal reflux disease with esophagitis without hemorrhage; Encounter for long-term (current) use of medications; SOB (shortness of breath); Dysuria; Hyperlipidemia LDL goal <100; Ventral hernia without obstruction or gangrene 11/05/2020 Travel 11/03/2020 Telephone [facility] [address] [place] [address] Malinda Patterson MD Urinary Tract Infection 11/03/2020 Travel 10/16/2020 Refill [facility] [address] [place] [address] Malinda Patterson MD Medication Refill 10/15/2020 Refill [facility] [address] [place] [address] Malinda Patterson MD Medication Refill 09/17/2020 3:50 PM EST Office Visit [facility] [address] [place] [address] Malinda Patterson MD Diabetic polyneuropathy associated with type 2 diabetes mellitus (HCC) (Primary Dx); Chronic bilateral low back pain without sciatica; Arthritis of knee; Gastroesophageal reflux disease with esophagitis without hemorrhage; Flu vaccine need 09/17/2020 Travel 07/22/2020 Telephone [facility] [address] [place] [address] Malinda Patterson MD Letter for School/Work 07/12/2020 Refill [facility] [address] [place] [address] Malinda Patterson MD Medication Refill 07/07/2020 Refill [facility] [address] [place] [address] Malinda Patterson MD Medication Refill 06/21/2020 Refill [facility] [address] [place] [address] Malinda Patterson MD Medication Refill 06/09/2020 Refill [facility] [address] [place] [address] Malinda Patterson MD Medication Refill 06/09/2020 Refill [facility] [address] [place] [address] Bernadette Rangel APRN Medication Refill 06/08/2020 Refill [facility]P [facility] [address] [place] [address] Malinda Patterson MD Medication Refill 05/22/2020 Telephone [facility] [address] [place] [address] Malinda Patterson MD Visit Follow Up 05/10/2020 Refill [facility] [address] [place] [address] Malinda Patterson MD Medication Refill 04/30/2020 11:19 AM EDT - 04/30/2020 11:59 PM EDT Hospital Encounter [facility] [address] [place] [address] [facility] Viral upper respiratory tract infection; Type 2 diabetes mellitus with peripheral neuropathy (HCC); Hyperlipidemia LDL goal <100; Postinfectious hypothyroidism Discharge Disposition: Home or Self Care 04/29/2020 2:24 PM EDT - 04/29/2020 11:59 PM EDT Hospital Encounter [facility] [place] [address] Left foot pain Discharge Disposition: Home or Self Care 04/29/2020 1:00 PM EDT Office Visit [facility] [address] [place] [address] Bernadette Rangel, AIDAN Ventral hernia, recurrent (Primary Dx); Left foot pain; Type 2 diabetes mellitus with peripheral neuropathy (HCC); Morbid obesity with BMI of 50.0-59.9, adult (HCC); Postinfectious hypothyroidism; Hyperlipidemia LDL goal <100; Hepatitis B vaccination not up to date 04/29/2020 Travel 04/15/2020 1:20 PM EDT Office Visit [facility] [address] [place] [address] Malinda Patterson MD Abscess of abdominal wall 04/15/2020 Travel 03/08/2020 Refill [facility] [address] [place] [address] Malinda Patterson MD Medication Refill 03/03/2020 Refill [facility] [address] [place] [address] Malinda Patterson MD Medication Refill 02/25/2020 Refill [facility] [address] [place] [address] Malinda Patterson MD Medication Refill 01/23/2020 11:30 AM EDT Office Visit [facility] [address] [place] [address] Malinda Patterson MD Medicare annual wellness visit, initial (Primary Dx); Heart failure, unspecified HF chronicity, unspecified heart failure type (HCC); Type 2 diabetes mellitus with peripheral neuropathy (HCC); Atherosclerosis of aorta; Morbid obesity with BMI of 50.0-59.9, adult (HCC); Viral upper respiratory tract infection; Hyperlipidemia LDL goal <100; Postinfectious hypothyroidism 01/22/2020 Travel 01/10/2020 Refill [facility] [address] [place] [address] Malinda Patterson MD Medication Refill 12/18/2019 1:40 PM EST Office Visit [facility] [address] [place] [address] Malinda Patterson MD Strain of mid-back, initial encounter (Primary Dx); Gastroesophageal reflux disease with esophagitis; Dysuria 12/18/2019 Travel 11/26/2019 Refill [facility] [address] [place] [address] Malinda Patterson MD Medication Refill 10/18/2019 Orders Only [facility] [address] [place] [address] Adore Pruitt MA UTI (urinary tract infection), uncomplicated (Primary Dx) 10/16/2019 Telephone [facility] [address] [place] [address] Malinda Patterson MD Other 10/16/2019 9:40 AM EST Office Visit [facility] [address] [place] [address] Malinda Patterson MD Pleuritic chest pain (Primary Dx); Mid back pain 09/28/2019 Refill [facility] [address] [place] [address] Malinda Patterson MD Medication Refill 09/18/2019 11:10 AM EST Office Visit [facility] [address] [place] [address] Malinda Patterson MD Chronic pain of left knee (Primary Dx); Type 2 diabetes mellitus with peripheral neuropathy (HCC); Scar pain 09/12/2019 Refill [facility] [address] [place] [address] Malinda Patterson MD Medication Refill 09/04/2019 11:30 AM EDT Office Visit [facility] [address] [place] [address] Malinda Patterson MD Chronic pain of left knee (Primary Dx) 09/03/2019 Telephone [facility] [address] [place] [address] Malinda Patterson MD Other 09/02/2019 Refill [facility] [address] [place] [address] Malinda Patterson MD Medication Refill 08/13/2019 10:15 AM EDT Clinical Support [facility] [address] [place] [address] Adore Pruitt MA Flu vaccine need (Primary Dx) 08/12/2019 Refill [facility] [address] [place] [address] Malinda Patterson MD Medication Refill 07/17/2019 Refill [facility] [address] [place] [address] Malinda Patterson MD Medication Refill 05/31/2019 8:55 PM EDT - 05/31/2019 11:59 PM EDT Hospital Encounter [facility] [place] [address] High risk medications (not anticoagulants) long-term use Discharge Disposition: Home or Self Care 05/31/2019 11:00 AM EDT Office Visit [facility] [address] [place] [address] Malinda Patterson MD Type 2 diabetes mellitus with peripheral neuropathy (HCC) (Primary Dx); Hyperlipidemia LDL goal <100; Diabetic polyneuropathy associated with type 2 diabetes mellitus (HCC); Chronic bilateral low back pain without sciatica; Postinfectious hypothyroidism; Gastroesophageal reflux disease with esophagitis; Arthritis of knee; High risk medications (not anticoagulants) long-term use 05/29/2019 Refill [facility] [address] [place] [address] Malinda Patterson MD Medication Refill 05/29/2019 Refill [facility] [address] [place] [address] Malinda Patterson MD Medication Refill 05/28/2019 Refill [facility] [address] [place] [address] Malinda Patterson MD Medication Refill 05/28/2019 Refill [facility] [address] [place] [address] Malinda Patterson MD Medication Refill 03/09/2019 Refill [facility] [address] [place] [address] Malinda Patterson MD Medication Refill 03/02/2019 Refill [facility] [address] [place] [address] Malinda Patterson MD Medication Refill 02/26/2019 Refill [facility] [address] [place] [address] Malinda Patterson MD Medication Refill 02/26/2019 11:00 AM EDT Office Visit [facility] [address] [place] [address] Malinda Patterson MD Screening for cervical cancer (Primary Dx) 02/14/2019 12:30 PM EDT - 02/14/2019 11:59 PM EDT Hospital Encounter [facility] [place] [address] Malinda Patterson MD Encounter for screening mammogram for breast cancer Discharge Disposition: Home or Self Care 02/09/2019 Abstract [facility]P [facility] [address] [place] [address] Diana Roberts RMA 02/08/2019 Telephone [facility]P [facility] [address] [place] [address] Malinda Patterson MD Medication Refill 02/07/2019 11:17 AM EDT - 02/07/2019 11:59 PM EDT Hospital Encounter [facility] [address] [place] [address] [facility] Type 2 diabetes mellitus with peripheral neuropathy (HCC); Hyperlipidemia LDL goal <100; Postinfectious hypothyroidism Discharge Disposition: Home or Self Care 02/07/2019 10:20 AM EDT Office Visit [facility] [address] [place] [address] Malinda Patterson MD Annual physical exam (Primary Dx); Type 2 diabetes mellitus without complication, unspecified whether press tender long goods insulin use (HCC); Encounter for screening mammogram for breast cancer; Type 2 diabetes mellitus with peripheral neuropathy (HCC); Postinfectious hypothyroidism; Hyperlipidemia LDL goal <100; Encounter for gynecological examination without abnormal finding; Cervical cancer screening; Vaginal yeast infection 02/06/2019 Patient Outreach [facility] [address] [place] [address] Mylene Dumont LPN Care Management - Chart Review; ED Follow-Up Call 02/05/2019 4:07 PM EDT - 02/05/2019 6:38 PM EDT Emergency [facility] [place] [address] Contreras Guevara MD Dizziness (Primary Dx); Peripheral positional vertigo, unspecified laterality Discharge Disposition: Home or Self Care 12/28/2018 Telephone [facility] [address] [place] [address] Malinda Patterson MD Medication Refill 12/28/2018 Refill [facility] [address] [place] [address] Malinda Patterson MD Medication Refill 12/28/2018 Orders Only [facility] [address] [place] [address] Malinda Patterson MD Postinfectious hypothyroidism; Hyperlipidemia LDL goal <100 12/28/2018 Orders Only [facility] [address] [place] [address] Swathi Hart [facility] Hyperlipidemia LDL goal <100; Postinfectious hypothyroidism; Type 2 diabetes mellitus with peripheral neuropathy (HCC) 12/11/2018 1:40 PM EST Office Visit [facility] [address] [place] [address] Malinda Patterson MD Type 2 diabetes mellitus with peripheral neuropathy (HCC) (Primary Dx); Diabetic polyneuropathy associated with type 2 diabetes mellitus (HCC); Chronic bilateral low back pain without sciatica; Atherosclerosis of abdominal aorta; Morbid obesity with BMI of 45.0-49.9, adult (HCC); Heart failure, unspecified HF chronicity, unspecified heart failure type (HCC); Sinusitis, unspecified chronicity, unspecified location 12/03/2018 Refill [facility] [address] [place] [address] Malinda Patterson MD Medication Refill 11/23/2018 Refill [facility] [address] [place] [address] Malinda Patterson MD Medication Refill 11/11/2018 Refill [facility] [address] [place] [address] Malinda Patterson MD Medication Refill 10/26/2018 11:30 AM EST Clinical Support [facility] [address] [place] [address] Swathi Hart, RMA Flu vaccine need (Primary Dx) 10/24/2018 Refill [facility] [address] [place] [address] Malinda Patterson MD Medication Refill 10/15/2018 Refill [facility] [address] [place] [address] Malinda Patterson MD Medication Refill 09/19/2018 Telephone [facility] [address] [place] [address] Malinda Patterson MD Other (eye exam) 09/18/2018 Refill [facility] [address] [place] [address] Malinda Patterson MD Medication Refill 08/18/2018 Refill [facility] [address] [place] [address] Malinda Patterson MD Medication Refill 08/02/2018 3:00 PM EDT - 08/02/2018 11:59 PM EDT Hospital Encounter [facility] [place] [address] Left foot pain Discharge Disposition: Home or Self Care 08/02/2018 2:10 PM EDT Office Visit [facility] [address] [place] [address] Malinda Patterson MD Left foot pain (Primary Dx); Atherosclerosis of abdominal aorta; Heart failure, unspecified heart failure chronicity, unspecified heart failure type; Diabetic polyneuropathy associated with type 2 diabetes mellitus (HCC); Chronic bilateral low back pain without sciatica 07/31/2018 Telephone [facility] [address] [place] [address] Malinda Patterson MD Medication Refill 07/30/2018 Refill [facility] [address] [place] [address] Malinda Patterson MD Medication Refill 07/21/2018 Refill [facility] [address] [place] [address] Malinda Patterson MD Medication Refill 07/04/2018 Refill [facility] [address] [place] [address] Malinda Patterson MD Medication Refill 06/19/2018 3:00 PM EDT Office Visit [facility] [address] [place] [address] Malinda Patterson MD Leg swelling (Primary Dx) 05/18/2018 Patient Outreach [facility] [address] [place] [address] Mylene Dumont LPN Care Transition (HCA- monthly; final); Visit Follow Up (05/05/2018) 05/09/2018 Refill [facility] [address] [place] [address] Malinda Patterson MD Medication Refill 05/05/2018 10:50 AM EDT Office Visit [facility] [address] [place] [address] Malinda Patterson MD Sore on leg (Primary Dx); Insomnia, persistent; Strain of neck muscle, initial encounter 04/20/2018 10:53 AM EDT - 04/20/2018 11:59 PM EDT Hospital Encounter [facility] [address] [place] [address] [facility] Type 2 diabetes mellitus with peripheral neuropathy (HCC); Postinfectious hypothyroidism Discharge Disposition: Home or Self Care 04/20/2018 10:10 AM EDT Office Visit [facility] [address] [place] [address] Malinda Patterson MD Type 2 diabetes mellitus with peripheral neuropathy (HCC) (Primary Dx); Diabetic polyneuropathy associated with type 2 diabetes mellitus (HCC); Chronic bilateral low back pain without sciatica; Postinfectious hypothyroidism; Morbid obesity with BMI of 45.0-49.9, adult (HCC) 04/12/2018 [facility]ill [facility] [address] [place] [address] Malinda Patterson MD Medication Refill 04/10/2018 Patient Outreach [facility] [address] [place] [address] Mylene Dumont LPN Care Transition (HCA- monthly) 03/21/2018 12:15 PM EDT Clinical Support [facility] [address] [place] [address] Dulce Maria Joshi, RMA Need for Tdap vaccination (Primary Dx) 03/05/2018 Refill [facility] [address] [place] [address] Malinda Patterson MD Medication Refill 03/03/2018 Patient Outreach [facility] [address] [place] [address] Mylene Dumont LPN Care Transition (HCA- monthly) 02/09/2018 Refill [facility] [address] [place] [address] Malinda Patterson MD Medication Refill 02/09/2018 Refill [facility] [address] [place] [address] Malinda Patterson MD Medication Refill 02/03/2018 Patient Outreach [facility] [address] [place] [address] Mylene Dumont LPN Care Transition (HCA- bi-weekly) 01/19/2018 Patient Outreach [facility] [address] [place] [address] Mylene Dumont LPN Care Transition (HCA- initial; 01/10/2018-8.0); Visit Follow Up (01/10/2018) 01/18/2018 1:40 PM EDT - 01/18/2018 11:59 PM EDT Hospital Encounter [facility] [place] [place] [address] Malinda Patterson MD Encounter for screening mammogram for breast cancer Discharge Disposition: Home or Self Care 01/12/2018 Orders Only [facility] [address] [place] [address] Malinda Patterson MD Postinfectious hypothyroidism (Primary Dx) 01/12/2018 Orders Only [facility] [address] [place] [address] Malinda Patterson MD Type 2 diabetes mellitus with peripheral neuropathy (HCC) (Primary Dx) 01/10/2018 11:53 AM EST - 01/10/2018 11:59 PM EST Hospital Encounter [facility] [place] [address] [place] [address] Click, [facility] Type 2 diabetes mellitus with peripheral neuropathy (HCC); Heart failure, unspecified heart failure chronicity, unspecified heart failure type (HCC); Other specified hypothyroidism; Hyperlipidemia LDL goal <100 Discharge Disposition: Home or Self Care 01/10/2018 10:50 AM EST Office Visit [facility] [address] [place] [address] Malinda Patterson MD Annual physical exam (Primary Dx); Diabetic polyneuropathy associated with type 2 diabetes mellitus (HCC); Chronic bilateral low back pain without sciatica; SOB (shortness of breath); Encounter for screening mammogram for breast cancer; Hyperlipidemia LDL goal <100; Other specified hypothyroidism; Type 2 diabetes mellitus with peripheral neuropathy (HCC); Heart failure, unspecified heart failure chronicity, unspecified heart failure type (HCC); Gastroesophageal reflux disease with esophagitis; Arthritis of knee 01/06/2018 Refill [facility] [address] [place] [address] Malinda Patterson MD Medication Refill 12/20/2017 Refill [facility] [address] [place] [address] Malinda Patterson MD Medication Refill 12/12/2017 Refill [facility] [address] [place] [address] Yesenia, Malinda Enriquez MD Medication Refill 11/20/2017 Refill [facility] [address] [place] [address] Yesenia, Malinda Enriquez MD Medication Refill 11/11/2017 Refill [facility] [address] [place] [address] Yesenia, Malinda Enriquez MD Medication Refill 11/08/2017 Refill [facility] [address] [place] [address] Yesenia, Malinda Enriquez MD Medication Refill 11/03/2017 Refill [facility] [address] [place] [address] Yesenia, Malinda Enriquez MD Medication Refill 10/11/2017 Refill [facility] [address] [place] [address] Yesenia, Malinda Enriquez MD Medication Refill 10/09/2017 Refill [facility] [address] [place] [address] Yesenia, Malinda Enriquez MD Medication Refill 08/13/2017 Refill [facility] [address] [place] [address] Yesenia, Malinda Enriquez MD Medication Refill 07/16/2017 Refill [facility] [address] [place] [address] Yesenia, Malinda Enriquez MD Medication Refill 07/13/2017 Refill [facility] [address] [place] [address] Yesenia, Malinda Enriquez MD Medication Refill 06/30/2017 Telephone [facility] [address] [place] [address] Yesenia, Malinda Enriquez MD Other 06/28/2017 9:39 AM EDT - 06/28/2017 11:59 PM EDT Hospital Encounter [facility] [place] [address] [place] [address] [facility], [facility] Type 2 diabetes mellitus with peripheral neuropathy (HCC); Hyperlipidemia LDL goal <100; Other specified hypothyroidism Discharge Disposition: Home or Self Care 06/27/2017 1:45 PM EDT Office Visit [facility] [address] [place] [address] Malinda Patterson MD Hyperlipidemia LDL goal <100 (Primary Dx); Diabetic polyneuropathy associated with type 2 diabetes mellitus (HCC); Chronic bilateral low back pain without sciatica; Other specified hypothyroidism; Type 2 diabetes mellitus with peripheral neuropathy (HCC) 06/15/2017 Refill [facility] [address] [place] [address] Malinda Patterson MD Medication Refill 05/16/2017 Refill [facility] [address] [place] [address] Malinda Patterson MD Medication Refill 04/17/2017 Refill [facility] [address] [place] [address] Malinda Patterson MD Medication Refill 04/10/2017 Refill [facility] [address] [place] [address] Malinda Patterson MD Medication Refill 03/22/2017 Refill [facility] [address] [place] [address] Malinda Patterson MD Medication Refill 03/21/2017 Refill [facility] [address] [place] [address] Malinda Patterson MD Medication Refill 03/12/2017 Refill [facility] [address] [place] [address] Malinda Patterson MD Medication Refill 02/08/2017 Refill [facility] [address] [place] [address] Malinda Patterson MD Medication Refill 01/18/2017 Orders Only [facility] [address] [address] [place] [address] Malgorzata Hunt MD 01/18/2017 Orders Only [facility] [address] [address] [place] [address] Malgorzata Hunt MD 01/09/2017 Refill [facility] [address] [place] [address] Malinda Patterson MD Medication Refill 12/27/2016 Refill [facility] [address] [place] [address] Malinda Patterson MD Medication Refill 11/26/2016 Orders Only [facility] [address] [place] [address] Swathi Hart [facility] Other specified hypothyroidism (Primary Dx); Type 2 diabetes mellitus with peripheral neuropathy (HCC); Hyperlipidemia LDL goal <100 11/10/2016 11:28 AM EST - 11/10/2016 11:59 PM EST Hospital Encounter [facility] [place] [address] [place] [address] [facility], [facility] Other specified hypothyroidism; Hyperlipidemia LDL goal <100; Type 2 diabetes mellitus with peripheral neuropathy (HCC); Heart failure, unspecified heart failure chronicity, unspecified heart failure type Discharge Disposition: Home or Self Care 11/10/2016 10:45 AM EST Office Visit [facility] [address] [place] [address] Malinda Patterson MD Flu vaccine need (Primary Dx); Type 2 diabetes mellitus with peripheral neuropathy (HCC); Morbid obesity with BMI of 45.0-49.9, adult (HCC); Diabetic polyneuropathy associated with type 2 diabetes mellitus (HCC); Other specified hypothyroidism; Hyperlipidemia LDL goal <100; Chronic bilateral low back pain without sciatica; Heart failure, unspecified heart failure chronicity, unspecified heart failure type 11/08/2016 Refill [facility] [address] [place] [address] Malinda Patterson MD Medication Refill 11/01/2016 Refill [facility] [address] [place] [address] Malinda Patterson MD Medication Refill 10/18/2016 Refill [facility] [address] [place] [address] Malinda Patterson MD Medication Refill 10/04/2016 Refill [facility] [address] [place] [address] Malinda Patterson MD Medication Refill 10/01/2016 11:06 AM EST - 10/01/2016 11:59 PM [facility] Hospital Encounter [facility] [place] [place] [address] Malinda Patterson MD Visit for screening mammogram Discharge Disposition: Home or Self Care 09/15/2016 Refill [facility] [address] [place] [address] Malinda Patterson MD Medication Refill 09/07/2016 Telephone [facility] [address] [place] [address] Malinda Patterson MD Paperwork/forms 2016 Refill [facility] [address] [place] [address] Malinda Patterson MD Medication Refill 09/04/2016 Refill [facility] [address] [place] [address] Malinda Patterson MD Medication Refill 08/02/2016 Refill [facility] [address] [place] [address] Malinda Patterson MD Medication Refill 07/21/2016 Refill [facility] [address] [place] [address] Malinda Patterson MD Medication Refill 07/04/2016 Refill [facility] [address] [place] [address] Malinda Patterson MD Medication Refill 06/18/2016 Refill [facility] [address] [place] [address] Yesenia, Malinda Enriquez MD Medication Refill 05/20/2016 Refill [facility] [address] [place] [address] Yesenia, Malinda Enriquez MD Medication Refill 05/18/2016 Refill [facility] [address] [place] [address] Yesenia, Malinda Enriquez MD Medication Refill 05/12/2016 Refill [facility] [address] [place] [address] Yesenia, Malinda Enriquez MD Medication Refill 04/23/2016 Refill [facility] [address] [place] [address] Malinda Patterson MD Medication Refill 04/04/2016 Refill [facility] [address] [place] [address] Yesenia, Malinda Enriquez MD Medication Refill 03/22/2016 Orders Only [facility] [address] [place] [address] Fredrick Owens RN Other specified hypothyroidism (Primary Dx) 03/22/2016 Telephone [facility] [address] [place] [address] Malinda Patterson MD Other 03/21/2016 Refill [facility] [address] [place] [address] Malinda Patterson MD Medication Refill 03/17/2016 Orders Only [facility] [address] [place] [address] Malinda Patterson MD Hypothyroidism (acquired) (Primary Dx) 03/17/2016 11:58 AM EDT - 03/17/2016 11:59 PM EDT Hospital Encounter [facility] [place] [address] [place] [address] Type 2 diabetes mellitus with peripheral neuropathy (HCC); Hyperlipidemia LDL goal <100; Other specified hypothyroidism Discharge Disposition: Home or Self Care 03/17/2016 11:00 AM EDT Office Visit [facility] [address] [place] [address] Malinda Patterson MD Dyslipidemia (Primary Dx); Hyperlipidemia LDL goal <100; Other specified hypothyroidism; Morbid obesity with BMI of 45.0-49.9, adult (HCC); Type 2 diabetes mellitus with peripheral neuropathy (HCC) 03/04/2016 Refill [facility] [address] [place] [address] Malinda Patterson MD Medication Refill 01/19/2016 Refill [facility] [address] [place] [address] Malinda Patterson MD Medication Refill 01/17/2016 Refill [facility] [address] [place] [address] Malinda Patterson MD Medication Refill 01/06/2016 Refill [facility] [address] [place] [address] Malinda Patterson MD Medication Refill 12/21/2015 Refill [facility] [address] [place] [address] Malinda Patterson MD Medication Refill 12/08/2015 Refill [facility] [address] [place] [address] Malinda Patterson MD Medication Refill 12/02/2015 Refill [facility] [address] [place] [address] Malinda Patterson MD Medication Refill 11/16/2015 Refill [facility] [address] [place] [address] Malinda Patterson MD Medication Refill 11/13/2015 11:00 AM EST Office Visit [facility] [address] [place] [address] Malinda Patterson MD Other specified hypothyroidism (Primary Dx); Hyperlipidemia LDL goal <100; Diabetic polyneuropathy associated with type 2 diabetes mellitus (HCC); Type 2 diabetes mellitus with peripheral neuropathy (HCC) 11/03/2015 Refill [facility] [address] [place] [address] Malinda Patterson MD Medication Refill 10/20/2015 Refill [facility] [address] [place] [address] Malinda Patterson MD Medication Refill 09/25/2015 Refill [facility] [address] [place] [address] Malinda Patterosn MD Medication Refill 09/12/2015 12:19 PM EST - 09/12/2015 11:59 PM EST Hospital Encounter [facility] [place] [address] [place] [address] Post-menopausal; Leukocytosis; Other fatigue Discharge Disposition: Home or Self Care 09/12/2015 11:00 AM EST Office Visit [facility] [address] [place] [address] Malinda Patterson MD Type 2 diabetes mellitus with neurological manifestations, uncontrolled (HCC) (Primary Dx); Dyslipidemia; Post-menopausal; Hyperlipidemia LDL goal <100; SOB (shortness of breath) 09/03/2015 9:40 AM EDT Office Visit [facility] [address] [address] MD Surgery follow-up (Primary Dx) 08/20/2015 Refill [facility] [address] [place] [address] Malinda Patterson MD Medication Refill 08/19/2015 Orders Only [facility] [address] [place] [address] Fredrick Owens, RN Leukocytosis (Primary Dx); Other fatigue 08/13/2015 9:47 PM EDT - 08/13/2015 11:59 PM EDT Hospital Encounter [facility] [place] [address] Post-operative nausea and vomiting Discharge Disposition: Home or Self Care 08/13/2015 3:45 PM EDT Office Visit [facility] [address] [place] [address] Malinda Patterson MD Flu vaccine need (Primary Dx); Post-operative nausea and vomiting 08/13/2015 9:40 AM EDT Office Visit [facility] [address] [facility] [address] [place] [address] MD Surgery follow-up (Primary Dx) 08/12/2015 Patient Outreach [facility] [address] [facility] [place] [address] Malinda Patterson MD ED Follow-Up Call 08/11/2015 7:08 PM EDT - 08/11/2015 8:36 PM EDT Emergency [facility] [place] [address] Urbano Stanford MD Nausea (Primary Dx) Discharge Disposition: Home or Self Care 07/31/2015 10:15 AM EDT - 08/02/2015 11:02 AM EDT Hospital Encounter [facility] 3C PULMONARY [facility] [place] [address] MD Pre-operative respiratory examination (Primary Dx); Ventral hernia, recurrent Discharge Disposition: Home or Self Care 07/31/2015 12:00 PM EDT - 07/31/2015 1:00 PM EDT Surgery [facility] [address] [place] [id number] Johnny [address] MD VENTRAL/EPIGASTRIC OR INCISIONAL HERNIA REPAIR WITH MESH 07/31/2015 11:18 AM EDT Anesthesia Event [facility] [place] [address] Jhon Wagner DO Merkle Serey, Jennifer L, NP 07/24/2015 9:44 AM EDT - 07/24/2015 11:59 PM EDT Hospital Encounter [facility] PRE-ADMIT TESTING [facility] [place] [address] Pre-operative respiratory examination (Primary Dx); Ventral hernia, recurrent Discharge Disposition: Home or Self Care 07/21/2015 11:00 AM EDT Office Visit [facility] [address] [place] [address] Bernadette Rangel APRN Asthmatic bronchitis, mild intermittent, with acute exacerbation (Primary Dx); Diabetic polyneuropathy associated with type 2 diabetes mellitus (HCC); Polyneuropathy 07/16/2015 Telephone [facility] [address] [facility] [address] [place] [address] Cristin Stevens [facility]; Visit Follow Up 07/11/2015 10:20 AM EDT Office Visit [facility] [address] [facility] [address] [place] [address] MD Recurrent ventral hernia (Primary Dx) 07/09/2015 Refill [facility] [address] [place] [address] Malinda Patterson MD Results 07/08/2015 10:56 AM EDT - 07/08/2015 11:59 PM EDT Hospital Encounter [facility] [place] [address] [place] [address] Diaphoresis Discharge Disposition: Home or Self Care 07/08/2015 10:00 AM EDT Office Visit [facility] [address] [place] [address] Malinda Patterson MD Type 2 diabetes mellitus with neurological manifestations, uncontrolled (HCC) (Primary Dx); Medication intolerance; Nausea; Other specified hypothyroidism; Diaphoresis 07/04/2015 Patient Outreach [facility] [address] [place] [address] Malinda Patterson MD ED Follow-Up Call 07/03/2015 7:30 PM EDT - 07/03/2015 10:14 PM EDT Emergency [facility] [place] [address] Dc Sherman MD Abdominal pain, right upper quadrant (Primary Dx) Discharge Disposition: Home or Self Care 07/03/2015 6:30 PM EDT Office Visit [facility] [place] [address] [address] Doc Gaston MD Dizziness (Primary Dx); Right upper quadrant pain; Nausea 07/03/2015 Refill [facility] [address] [place] [address] Malinda Patterson MD Medication Refill 06/21/2015 Refill [facility] [address] [place] [address] Malinda Patterson MD Medication Refill 06/17/2015 Telephone [facility] [address] [place] [address] Malinda Patterson MD Medication Refill 06/13/2015 Telephone [facility] [address] [place] [address] Malinda Patterson MD Other 06/12/2015 11:00 AM EDT Office Visit [facility] [address] [place] [address] Malinda Patterson MD Type 2 diabetes mellitus with neurological manifestations, uncontrolled (HCC) (Primary Dx); Ventral hernia, recurrent; Diabetic polyneuropathy associated with type 2 diabetes mellitus (HCC); Morbid obesity with BMI of 50.0-59.9, adult (HCC); Other specified hypothyroidism; Hyperlipidemia LDL goal <100 05/26/2015 Refill [facility] [address] [place] [address] Malinda Patterson MD Medication Refill 05/15/2015 9:23 PM EDT - 05/15/2015 11:59 PM EDT Hospital Encounter [facility] [place] [address] Routine gynecological examination; Special screening examination for human papillomavirus (HPV) Discharge Disposition: Home or Self Care 05/15/2015 11:00 AM EDT Office Visit [facility] [address] [place] [address] Malinda Patterson MD Special screening examination for human papillomavirus (HPV) (Primary Dx); Routine gynecological examination; Vaginal yeast infection 05/07/2015 3:35 PM EDT - 05/07/2015 11:59 PM EDT Hospital Encounter [facility] [place] [address] Malinda Patterson MD Other screening mammogram Discharge Disposition: Home or Self Care 04/28/2015 Telephone [facility] [address] [place] [address] Malinda Patterson MD Medication Refill 04/28/2015 Refill [facility] [address] [place] [address] Malinda Patterson MD Medication Refill 04/23/2015 11:56 AM EDT - 04/23/2015 11:59 PM EDT Hospital Encounter [facility] [place] [address] [place] [address] Other specified hypothyroidism Discharge Disposition: Home or Self Care 04/23/2015 11:00 AM EDT Office Visit [facility] [address] [place] [address] Malinda Patterson MD Hyperlipidemia LDL goal <100 (Primary Dx); Other specified hypothyroidism; Morbid obesity with BMI of 50.0-59.9, adult (HCC); Breast cancer screening; Type 2 diabetes mellitus with neurological manifestations, uncontrolled (HCC); Diabetic polyneuropathy associated with type 2 diabetes mellitus (HCC) 03/17/2015 12:20 PM EDT - 03/17/2015 11:59 PM EDT Hospital Encounter [facility] [address] [place] [address] DM (diabetes mellitus) (HCC); Hyperlipidemia LDL goal <100; Hypothyroidism Discharge Disposition: Home or Self Care 03/12/2015 11:00 AM EDT Office Visit [facility] [address] [place] [address] Malinda Patterson MD Neuropathy (Primary Dx); Dyslipidemia; DM (diabetes mellitus) (HCC); Hyperlipidemia LDL goal <100; Hypothyroidism; GERD (gastroesophageal reflux disease); Abdominal pain, other specified site 02/11/2015 Refill [facility] [address] [place] [address] Malinda Patterson MD Medication Refill 01/14/2015 Refill [facility] [address] [place] [address] Malinda Patterson MD Medication Refill 12/27/2014 Telephone [facility] [address] [place] [address] Malinda Patterson MD 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[employer]) 12/09/2014 11:30 AM EST Office Visit [facility] [address] [place] [address] Bernadette Rangel APRN Encounter for diabetes education (HCC) (Primary Dx); Injection education, encounter for 12/09/2014 10:15 AM EST Office Visit [facility] [address] [place] [address] Malinda Patterson MD Frequent urination (Primary Dx); Neuropathy; Hyperlipidemia LDL goal <100; Hypothyroid; Dyslipidemia; DM (diabetes mellitus) (HCC) 12/05/2014 Telephone [facility] [address] [place] [address] Malinda Patterson MD Other 12/02/2014 12:02 PM EST - 12/02/2014 11:59 PM EST Hospital Encounter [facility] [place] [address] [place] [address] DM (diabetes mellitus) ([facility]); Hypothyroidism; Dyslipidemia Discharge Disposition: Home or Self Care 12/02/2014 11:15 AM EST Office Visit [facility] [address] [place] [address] Malinda Patterson MD Bladder infection (Primary Dx); DM (diabetes mellitus) ([facility]); Vaginal irritation; Hypothyroidism 11/04/2014 Refill [facility] [address] [place] [address] Bernadette Rangel APRN Medication Refill 10/28/2014 Refill [facility] [address] [place] [address] Malinda Patterson MD Medication Refill 10/09/2014 Abstract [facility] [address] [place] [address] Malinda Patterson MD 09/23/2014 Telephone [facility] [address] [place] [address] Malinda Patterson MD Other 09/20/2014 1:00 PM EST Office Visit [facility] [address] [place] [address] Malnida Patterson MD UTI (urinary tract infection) (Primary Dx); Yeast infection; Lumbar disc disease 09/12/2014 9:15 AM EST Office Visit [facility] [address] [place] [address] Malinda Patterson MD DM (diabetes mellitus) ([facility]) (Primary Dx); Chest pain; Hyperlipidemia LDL goal <100; Hypothyroidism; Heart failure, chronic, systolic 09/10/2014 Telephone [facility] [address] [place] [address] Malinda Patterson MD Results 2014 Orders Only [facility] [address] [place] [address] Swathi Hart RMA DM (diabetes mellitus) (HCC) (Primary Dx) 09/03/2014 Telephone [facility] [address] [place] [address] Malinda Patterson MD Other 09/02/2014 Telephone [facility] [address] [place] [address] Malinda Patterson MD Medication Problem 09/02/2014 1:16 PM EDT - 09/02/2014 11:59 PM EDT Hospital Encounter [facility] [place] [address] [place] [address] DM (diabetes mellitus) (HCC) (Primary Dx); Dyslipidemia; Hypothyroid Discharge Disposition: Home or Self Care 09/02/2014 8:45 AM EDT Office Visit [facility] [address] [place] [address] Malinda Patterson MD DM (diabetes mellitus) (HCC) (Primary Dx); Dyslipidemia; Morbid obesity (HCC); Hypothyroid; Chronic knee pain, unspecified laterality; Herniated disc; Neuropathy; Breast cancer screening; Flu vaccine need 06/04/2014 4:18 AM EDT - 06/04/2014 5:16 AM EDT Emergency [facility] [place] [address] Francis Shine MD Otitis externa, right (Primary Dx); Otitis media, right Discharge Disposition: Home or Self Care 04/21/2014 1:45 PM EDT Office Visit [facility] [place] Ur[facility] [address] [address] Yuli Sanders DO Hand strain, right, initial encounter (Primary Dx); Right hand pain 04/20/2014 12:37 AM EDT - 04/20/2014 1:38 AM EDT Emergency [facility] [place] [address] Soheila Tirado MD Wrist pain, right (Primary Dx); Hand pain, right; History of carpal tunnel syndrome Discharge Disposition: Home or Self Care 02/28/2014 Refill [facility] [address] [place] [address] Saumya Rodrigues MD Medication Refill 02/08/2014 6:30 PM EDT Office Visit [facility] [place] [facility] [address] [place] [address] Saumya Rodrigues MD Infected wound, initial encounter (HCC) (Primary Dx) 01/10/2014 4:38 PM EST - 01/10/2014 5:55 PM EST Emergency [facility] [place] [id number] Sarkis Hogue MD Colicky abdominal pain (Primary Dx) Discharge Disposition: Home or Self Care 12/19/2013 1:55 PM EST - 12/19/2013 5:56 PM EST Emergency [facility] [place] [address] Stephen Earl DO Abdominal pain (Primary Dx); History of umbilical hernia repair; Dysfunctional uterine bleeding Discharge Disposition: Home or Self Care 12/04/2013 Telephone SEP H&V [facility] [place] [address] [place] [address] King Joyce MD Appointment Needed 11/28/2013 Orders Only SEP [facility] Surg [facility] [address] [facility] [address] [place] [address] Jose-Yanni rst, Janae, RMA Ventral hernia, recurrent (Primary Dx) 11/28/2013 2:00 PM EST Office Visit [facility] [address] [facility] [address] [place] [address] Francis Tejeda MD Ventral hernia, recurrent (Primary Dx); Obesity; DM (diabetes mellitus) (HCC) 11/16/2013 2:30 PM EST - 11/16/2013 11:59 PM EST Hospital Encounter [facility] [address] [place] [address] Contreras Casper MD Back pain Discharge Disposition: Home or Self Care 11/14/2013 Telephone SEP [facility] Surg [facility] [address] [facility] [address] [place] [address] Lia Bailey RMA Medication Refill (Pt requesting something for pain) 10/22/2013 7:31 AM EST - 10/22/2013 10:25 AM EST Hospital Encounter EDG SAME DAY SURGERY [facility] [place] [id number] Francis Tejeda MD Discharge Disposition: Home or Self Care 10/19/2013 7:45 AM EST - 10/19/2013 11:59 PM EST Hospital Encounter EDG PRE-ADMIT TESTING [facility] [place] [id number] Discharge Disposition: Home or Self Care 10/17/2013 2:00 PM EST Office Visit SEP [facility] Surg [facility] [address] [facility] [address] [place] [address] Francis Tejeda MD Ventral hernia, recurrent (Primary Dx); Obesity 10/07/2013 11:30 PM EST - 10/08/2013 1:49 AM EST Emergency [place] [facility] [place] [address] Soheila Tirado MD Ventral hernia (Primary Dx) Discharge Disposition: Home or Self Care 04/17/2013 11:00 AM EDT - 04/17/2013 11:59 PM EDT Hospital Encounter EDG [facility] [place] [address] Contreras Casper MD Discharge Disposition: Home or Self Care 04/16/2013 8:30 AM EDT - 04/16/2013 8:59 AM EDT Hospital Encounter [place] Stress Test [facility] [place] [address] Contreras Casper MD Chest pain; Unspecified essential hypertension; Other and unspecified hyperlipidemia; Type II or unspecified type diabetes mellitus without mention of complication, not stated as uncontrolled (HCC) Discharge Disposition: Home or Self Care 04/16/2013 9:00 AM EDT - 04/16/2013 11:59 PM EDT Hospital Encounter EDG [facility] [place] [address] Contreras Casper MD Chest pain; Unspecified essential hypertension; Other and unspecified hyperlipidemia; Type II or unspecified type diabetes mellitus without mention of complication, not stated as uncontrolled (HCC) Discharge Disposition: Home or Self Care 03/26/2013 1:58 PM EDT - 03/26/2013 11:59 PM EDT Hospital Encounter EDG L[place] [facility] [place] [address] Pain Discharge Disposition: Home or Self Care 01/17/2013 4:06 PM EDT - 01/17/2013 7:23 PM EDT Emergency [facility] [place] [facility] Clif Hu MD Acute bronchitis (Primary Dx); Asthma exacerbation; Vomiting and diarrhea Discharge Disposition: Home or Self Care 12/09/2012 5:55 PM EST - 12/09/2012 7:17 PM EST Emergency [facility] [place] [address] Earnestine Marks MD Ankle sprain (Primary Dx) Discharge Disposition: Home or Self Care 11/15/2012 5:21 PM EST - 11/15/2012 7:18 PM EST Emergency [facility] [place] [address] Shauna Ford MD Abnormal vaginal bleeding (Primary Dx) Discharge Disposition: Home or Self Care 11/06/2012 8:58 PM EST - 11/06/2012 10:57 PM EST Emergency [facility] [place] [address] Urbano Stanford MD URI (upper respiratory infection) (Primary Dx) Discharge Disposition: Home or Self Care 10/10/2012 12:39 PM EST - 10/10/2012 11:59 PM EST Hospital Encounter [facility] [place] [address] Pelvic pain; Vaginal bleeding Discharge Disposition: Home or Self Care 09/20/2012 9:58 PM EST - 09/20/2012 11:30 PM EST Emergency [facility] [place] [address] Stephen Earl DO Pelvic pain; Vaginal bleeding Discharge Disposition: Home or Self Care 04/27/2012 10:22 AM EDT - 04/27/2012 11:59 PM EDT Hospital Encounter EDG LABORATORY [facility] Jitendra [place] [address] DM (diabetes mellitus) (HCC) Discharge Disposition: Home or Self Care 03/21/2012 11:57 AM EDT - 03/21/2012 12:50 PM EDT Emergency [place] [facility] [address] [place] [address] Michael Gutiérrez MD Right hip pain; Bursitis Discharge Disposition: Home or Self Care 02/29/2012 11:00 AM EDT Office Visit SEP H&V CV[address] [address] King Joyce MD Chest pain; DM (diabetes mellitus) (HCC); Obesity; Dyslipidemia 02/24/2012 Abstract SEP H&V [address] [address] King Joyce MD 11/11/2011 Refill [facility] [address] [address] King Joyce MD Medication Refill 11/10/2011 Refill SEP H&V [address] [address] King Joyce MD Medication Refill 10/11/2011 1:30 PM EST - 10/11/2011 11:59 PM EST Hospital Encounter EDG D-WING XRAY [facility] [address] [place] [id number] Pain Discharge Disposition: Home or Self Care 09/20/2011 11:17 AM EST - 09/20/2011 11:59 PM EST Hospital Encounter [facility] [address] [place] [address] Beau Paz MD Leiomyoma of uterus, unspecified Discharge Disposition: Home or Self Care 08/26/2011 7:02 PM EDT - 08/28/2011 2:02 PM EDT Hospital Encounter EDG 6D TCU [facility] [place] [address] Yuliya, Ita Teodora, MD Adore Ivy MD Minzner, Jon R, MD Chest pain; Lightheadedness; Diabetes mellitus (HCC); Hyperlipidemia; Hypothyroid; Nausea; Morbid obesity (HCC); CAD (coronary artery disease) Discharge Disposition: Home or Self Care 08/02/2011 10:29 AM EDT - 08/02/2011 11:59 PM EDT Hospital Encounter [facility] BOYD [address] [place] [address] Jaquelin Bal MD Chest pressure; Abdominal pain, other specified site Discharge Disposition: Home or Self Care 07/28/2011 11:17 PM EDT - 07/31/2011 9:30 PM EDT Hospital Encounter EDG TCU [address] [place] [address] [place] [address] Dc [place] MD Pilger, Jeffrey M, MD Bankers, Bradley J, MD Dyspnea; Diaphoresis; Chest pain; Diabetes; Chest pressure; Abdominal pain, other specified site Discharge Disposition: Home or Self Care 06/14/2011 9:16 AM EDT - 06/15/2011 12:47 PM EDT Hospital [place]counter [place] [address] [place] [address] Beau Paz MD Fibroid, uterine Discharge Disposition: Home or Self Care 06/11/2011 1:15 PM EDT - 06/11/2011 11:59 PM EDT Hospital Encounter EDG LABORATORY [facility] [place] [id number] Uterine fibroid Discharge Disposition: Home or Self Care 05/31/2011 1:22 PM EDT - 05/31/2011 2:27 PM EDT Emergency [place] [facility] [place] [address] Shauna Ford MD Abdominal pain, other specified site; Uterine fibroid; Constipation Discharge Disposition: Home or Self Care 04/20/2011 2:30 PM EDT - 04/20/2011 11:59 PM EDT Hospital Encounter GINA BO[facility]D [facility] [address] [place] [id number] Beau Paz MD Pelvic pain in female; Fibroids Discharge Disposition: Home or Self Care 04/20/2011 1:43 PM EDT - 04/20/2011 2:29 PM EDT Hospital Encounter [place] [facility]amm[facility] [address] [address] Provider, Not In Epic Other screening mammogram Discharge Disposition: Home or Self Care 03/09/2011 12:19 AM EDT - 03/12/2011 11:07 AM EDT Hospital Encounter EDG 2AO ONCOLOGY [facility] [address] [address] Soheila Tirado MD Jibrini, Mhamad B, MD Pyelonephritis; Unspecified essential hypertension; DM w/o complication type II (HCC) Discharge Disposition: Home or Self Care 06/04/2010 2:35 PM EDT - 06/04/2010 3:48 PM EDT Emergency HST E/D BLUE EDG [facility] Emergency Ita Martinez DO 06/01/2010 8:27 AM EDT - 06/01/2010 11:59 PM EDT Hospital Encounter HST RADIOLOGY EDG Ling Regalado MD 06/01/2010 12:01 AM EDT - 06/01/2010 11:59 PM EDT Hospital Encounter HST PF IMAGING MRI EDG Ling Regalado MD 04/24/2010 12:01 AM EDT - 04/24/2010 11:59 PM EDT Hospital Encounter HST PF IMAGING MRI EDG Ling Regalado MD 04/22/2010 3:31 PM EDT - 04/22/2010 5:48 PM EDT Emergency HST E/D CALEB EDG [facility] Emergency Ita Dwyer MD 04/20/2010 5:00 PM EDT - 04/21/2010 3:25 PM EDT Hospital Encounter HST 2B2 Francis Tejeda MD 03/31/2010 11:33 AM EDT - 03/31/2010 2:16 PM EDT Emergency HST E/D RED EDG [facility] Emergency Doc Jay MD 03/19/2010 12:01 AM EDT - 03/19/2010 11:59 PM EDT Hospital Encounter HST RADIOLOGY EDG Ling Regalado MD 02/27/2010 12:01 AM EDT - 02/27/2010 11:59 PM EDT Hospital Encounter HST RADIOLOGY EDG Ahmet Quezada MD 02/26/2010 2:09 PM EDT - 02/26/2010 11:59 PM EDT Hospital Encounter HST CARDIOLOGY EDG Ahmet Quezada MD 12/25/2009 8:05 AM EST - 12/25/2009 2:03 PM EST Hospital Encounter HST Bart Haider MD 12/24/2009 12:01 AM EST - 12/24/2009 11:59 PM EST Hospital Encounter HST EPIC CON UNK EDG Bryant Post MD 12/08/2009 12:01 AM EST - 12/08/2009 11:59 PM EST Hospital Encounter HST EPIC CON UNK EDG Bryant Post MD 12/05/2009 2:16 PM EST - 12/05/2009 11:59 PM EST Hospital Encounter HST EPIC CON UNK EDG Bryant Post MD 11/14/2009 3:09 PM EST - 11/14/2009 11:59 PM EST Hospital Encounter HST EPIC CON UNK EDG Renee Winters 11/01/2009 1:52 AM EST - 11/04/2009 1:33 PM EST Hospital Encounter HST 2C [facility] Andreea Robertson MD 10/30/2009 7:54 PM EST - 10/31/2009 12:54 AM EST Emergency HST EPIC CON UNK EDG [facility] Cristian Leigh MD 10/21/2009 12:01 AM EST - 10/21/2009 11:59 PM EST Hospital Encounter HST EPIC CON UNK EDG Graciela Varner MD 08/29/2009 9:54 AM EDT - 08/29/2009 11:59 PM EDT Hospital Encounter HST EPIC CON UNK EDG Graciela Varner MD 08/22/2009 9:57 AM EDT - 08/22/2009 11:59 PM EDT Hospital Encounter HST EPIC CON UNK EDG Renee Winters 07/15/2009 5:59 PM EDT - 07/15/2009 11:59 PM EDT Hospital Encounter HST EPIC CON UNK EDG Juan Davis MD 07/02/2009 3:57 PM EDT - 07/02/2009 11:59 PM EDT Hospital Encounter HST EPIC CON UNK EDG Juan Davis MD 06/20/2009 12:01 AM EDT - 06/20/2009 11:59 PM EDT Hospital Encounter HST EPIC CON UNK EDG Brandon Allen 06/20/2009 - 06/20/2009 11:59 PM EDT Hospital Encounter HST MEDICIN KAYLENE Discharge Disposition: Home or Self Care 06/16/2009 1:11 PM EDT - 06/16/2009 11:59 PM EDT Hospital Encounter HST EPIC CON UNK EDG Renee Winters 04/02/2009 12:59 PM EDT - 04/02/2009 11:59 PM EDT Hospital Encounter HST LAB EDG Pooja Kim MD 03/13/2009 10:29 AM EDT - 03/13/2009 11:59 PM EDT Hospital Encounter HST RADIOLOGY EDG Pooja Kim MD 02/18/2009 5:45 AM EDT - 02/18/2009 11:59 PM EDT Hospital Encounter HST LAB EDG Bart Winters MD 10/15/2008 9:02 AM EST - 10/15/2008 11:59 PM EST Hospital Encounter HST LAB EDG Francis Mena MD 09/16/2008 7:23 PM EST - 09/16/2008 8:26 PM EST Emergency HST E/D GREEN EDG Francis Shine MD 08/27/2008 12:46 AM EDT - 08/27/2008 5:36 AM EDT Emergency HST EPIC CON UNK EDG Dc [place] MD 08/19/2008 12:48 PM EDT - 08/19/2008 11:59 PM EDT Hospital Encounter HST LAB EDG Francis Mena MD 05/25/2008 12:35 PM EDT - 05/25/2008 11:59 PM EDT Hospital Encounter HST LAB EDG Francis Mena MD 05/13/2008 12:57 PM EDT - 05/13/2008 4:38 PM EDT Emergency HST E/D CALEB EDG Sven Miller MD 08/12/2007 7:02 PM EDT - 08/12/2007 9:52 PM EDT Emergency HST E/D BLUE EDG Michael Gutiérrez MD 12/27/2005 11:32 AM EST - 12/27/2005 6:00 PM EST Hospital Encounter HST SAS Yesi Deshpande MD 08/17/2005 1:09 PM EDT - 08/17/2005 11:59 PM EDT Hospital Encounter HST LAB EDG Francis Mena MD 09/24/2003 8:37 PM EST - 09/24/2003 11:15 PM EST Emergency HST MINOR ER EDG Bryant Sidhu MD 01/14/1999 8:39 AM EST - 01/14/1999 11:59 PM EST Hospital Encounter HST SDS EDG Jenna Lock MD 12/24/1998 8:07 PM EST - 12/24/1998 11:59 PM EST Hospital Encounter HST EPIC CON UNK EDG [facility] 05/20/1998 12:01 PM EDT - 06/24/1998 Hospital Encounter HST NICU EDG Siddhartha Tello 05/17/1998 12:37 AM EDT - 05/18/1998 2:40 PM EDT Hospital Encounter HST 1C Siddhartha Tello 05/14/1998 7:16 PM EDT - 05/14/1998 11:59 PM EDT Hospital Encounter HST LAB EDG Siddhartha Tello 05/13/1998 1:08 AM EDT - 05/13/1998 2:51 AM EDT Hospital Encounter HST 1C Siddhartha Tello 05/01/1998 12:58 PM EDT - 05/01/1998 11:59 PM EDT Hospital Encounter HST LAB EDG Alexandro Candelario 04/02/1998 10:36 AM EDT - 04/02/1998 11:59 PM EDT Hospital Encounter HST LAB EDG Brendon Garza MD 01/06/1998 5:02 PM EST - 01/06/1998 11:59 PM EST Hospital Encounter HST LAB EDG Brendon Garza MD 12/09/1997 8:36 PM EST - 12/09/1997 11:59 PM EST Hospital Encounter HST LAB EDG Brendon Garza MD 12/09/1997 5:03 PM EST - 12/09/1997 11:59 PM EST Hospital Encounter HST LAB EDG Brendon Garza MD 10/01/1997 11:15 AM EST - 10/01/1997 11:59 PM EST Emergency HST EPIC CON UNK COV Sven Miller MD 12/06/1996 12:39 AM EST - 12/07/1996 2:37 PM EST Hospital Encounter HST 1C Vinicio Woodruff MD 12/05/1996 10:52 PM EST - 12/05/1996 11:59 PM EST Hospital Encounter HST EPIC CON UNK EDG ElishaSiddhartha 11/28/1996 7:18 PM EST - 11/28/1996 11:59 PM EST Hospital Encounter HST EPIC CON UNK EDG ElishaSiddhartha 11/20/1996 8:52 PM EST - 11/21/1996 1:42 PM EST Hospital Encounter HST 1C Siddhartha Tello 11/03/1996 6:25 PM EST - 11/03/1996 8:50 PM EST Hospital Encounter HST EPIC CON UNK EDG Siddhartha Tello 09/26/1996 1:25 PM EST - 09/26/1996 11:59 PM EST Hospital Encounter HST EPIC CON UNK EDG [facility] 09/24/1996 9:34 PM EST - 09/24/1996 9:50 PM EST Hospital Encounter HST EPIC CON UNK EDG Siddhartha Tello 09/09/1996 12:46 AM EST - 09/09/1996 1:50 AM EST Hospital Encounter HST EPIC CON UNK EDG Siddhartha Tello 08/21/1996 11:16 AM EDT - 08/21/1996 11:59 PM EDT Hospital Encounter HST EPIC CON UNK EDG Vinicio Woodruff MD 07/31/1996 1:38 AM EDT - 07/31/1996 11:59 PM EDT Emergency HST EPIC CON UNK COV Iron Graham MD 07/17/1996 8:44 AM EDT - 07/17/1996 11:59 PM EDT Hospital Encounter HST EPIC CON UNK EDG Siddhartha Tello 07/13/1996 9:30 AM EDT - 07/13/1996 11:59 PM EDT Hospital Encounter HST EPIC CON UNK EDG Siddhartha Tello 06/09/1995 12:49 AM EDT - 06/09/1995 11:59 PM EDT Emergency HST [facility] CON [place] Francis Xie MD 03/30/1995 1:59 PM EDT - 03/30/1995 11:59 PM EDT Emergency HST [facility] CON Johnny Maria MD 02/23/1994 6:55 PM EDT - 02/23/1994 11:59 PM EDT Emergency HST [facility] CON Johnny Cruz MD Allergies Active Allergy Reactions Criticality Noted Date Comments Penicillins Other (See Comments) Medium 09/02/2014 Says it does not work for her. Medications lancets (ONETOUCH DELICA PLUS LANCET) 33 gauge Misc MiscIndications:Ty pe 2 diabetes mellitus with peripheral neuropathy (HCC) USE THREE TIMES DAILY BEFORE MEALS 100 Each 2 12/22/19 24 Active semaglutide (OZEMPIC) 0.25 mg or 0.5 mg (2 mg/3 mL) SubQ Pen InjectorIndication s:Type 2 diabetes mellitus with hyperglycemia, with long-term current use of insulin (HCC) Subcutaneous (Inject under the skin) 0.5 mg once a week. 3 mL 11 08/22/20 24 Active Insulin [place], Disposable, (BD BRIDGET 2ND GEN PEN NEEDLE) 32 gauge x 5/32 [facility] NeedleIndications: Type 2 diabetes mellitus with hyperglycemia, with long-term current use of insulin (HCC) Use as directed to inject under the skin Novolog and Lantus 350 Each 3 08/23/20 24 Active acetaminophen (TYLENOL) 500 mg Oral Tablet Take 500 mg by mouth every 4 hours as needed for Pain. Active docusate sodium (COLACE) 100 mg Oral Capsule Take 1 Capsule by mouth daily. 30 Capsule 01/02/20 25 Active miconazole (MICATIN) 2 % Top Powder Apply topically 2 times daily. 30 g 01/02/20 25 Active insulin aspart U-100 (NOVOLOG) 100 unit/mL (3 mL) SubQ Insulin Pen Inject up to 45 units a day in divided doses as directed. E11.42 45 mL 1 01/25/20 25 Active oxybutynin (DITROPAN-XL) 10 mg Oral Tablet Extended Rel 24 hrIndications:OAB (overactive bladder) TAKE 1 TABLET BY MOUTH DAILY 30 Tablet 2 04/03/20 25 Active gabapentin (NEURONTIN) 300 mg Oral CapsuleIndications :Diabetic polyneuropathy associated with type 2 diabetes mellitus (HCC),Chronic bilateral low back pain without sciatica,Type 2 diabetes mellitus with peripheral neuropathy (HCC) Take 2 Capsules by mouth 3 times daily. 180 Capsule 06/04/20 25 Active albuterol (PROVENTIL HFA;VENTOLIN HFA) 90 mcg/actuation Inhl HFA Aerosol InhalerIndications :SOB (shortness of breath) INHALE 1 TO 2 PUFFS INTO THE LUNGS EVERY 4 HOURS NEEDED 6.7 g 06/04/20 25 Active aspirin 81 mg Oral Tablet, Chewable CHEW AND SWALLOW 1 TABLET BY MOUTH DAILY 30 Tablet 06/04/20 25 Active atorvastatin (LIPITOR) 80 mg Oral TabletIndications: Hyperlipidemia LDL goal <100 Take 1 Tablet by mouth daily. 30 Tablet 06/04/20 25 Active Blood Sugar Diagnostic (ONETOUCH VERIO TEST STRIPS) [facility] StripIndications:T ype 2 diabetes mellitus with peripheral neuropathy (HCC) 1 Strip by Other route 3 times daily. 100 Strip 06/04/20 25 Active Blood-Glucose Meter [facility] KitIndications:Typ e 2 diabetes mellitus with peripheral neuropathy (HCC) Any meter covered by insurance- test TID before meals 1 Kit 06/04/20 25 Active carvediloL (COREG) 3.125 mg Oral TabletIndications: Chronic heart failure, unspecified heart failure type (HCC) Take 1 Tablet by mouth 2 times daily. 200 Tablet 2 06/04/20 25 Active insulin glargine (LANTUS SOLOSTAR U-100 INSULIN) 100 unit/mL (3 mL) SubQ Insulin PenIndications:Typ e 2 diabetes mellitus with hyperglycemia, with long-term current use of insulin (HCC),Hyperlipidem ia associated with type 2 diabetes mellitus (HCC) Inject 30 units every evening as directed. E11.42 15 mL 06/04/20 25 Active Insulin Syringe-Needle U-100 0.3 mL 30 gauge x 5/16 [facility] Syringe 1 Each by [facility].(Non-Drug; Combo Route) route 3 times daily. 100 Each 2 06/04/20 25 Active LEVOthyroxine (SYNTHROID) 125 mcg Oral TabletIndications: Hypothyroidism, unspecified type Take 1 Tablet by mouth daily. 90 Tablet 1 06/04/20 25 Active omega-3 acid ethyl esters (LOVAZA) 1 gram Oral CapsuleIndications :Type 2 diabetes mellitus with peripheral neuropathy (HCC) Take 2 Capsules by mouth 2 times daily. 360 Capsule 1 06/04/20 25 Active omeprazole (PRILOSEC) 20 mg Oral Capsule, Delayed Release(E.C.)Indic ations:Gastroesoph ageal reflux disease with esophagitis without hemorrhage Take 1 Capsule by mouth daily. 90 Capsule 1 06/04/20 25 Active tiZANidine (ZANAFLEX) 4 mg Oral TabletIndications: Leg cramps Take 1 Tablet by mouth 3 times daily as needed. for muscle spasm 270 Tablet 1 06/04/20 25 Active lisinopriL (PRINIVIL;ZESTRIL) 10 mg Oral TabletIndications: Type 2 diabetes mellitus with hyperglycemia, with long-term current use of insulin (HCC) Take 1 Tablet by mouth daily. 90 Tablet 1 06/04/20 25 Active clotrimazole (LOTRIMIN) 1 % Top CreamIndications:A thlete's foot on left Apply topically 2 times daily. 24 g 06/04/20 25 Active Active Problems Patient Care Coordination No te Formatting of this note migh t be different from the original. Care gap audit completed by Cecily Estes RN on 06/01/2024. MAMTA 11/16/22 UDS: 05/31/19jsg, 03/03/2021 pjt, 06/24/21 NO SHOW #1 02/06/16, #2 02/26/16, #3 10/01/19, #4 04/29/2020 [place] - pjt SEP YUMIKO FROST NO SHOW- 12/13/2024, 03/12/2025, 03/14/2025 Problem Noted Date Diagnosed Date Calculus of gallbladder with chronic cholecystitis without obstruction 11/01/2024 Female genital prolapse 09/27/2024 Rectocele 09/27/2024 Assessment & Plan (01/01/2025 12:35 PM EST): EKG and labs reviewed History reviewed Lab Results Component Value Date HGBA1C 7.8 (H) 12/04/2024 Average risk Proceed as planned Cystocele, midline 09/27/2024 EDITH (stress urinary incontinence, female) 2023 Chest pain, unspecified type 09/08/2024 Abdominal pain 09/08/2024 Screening for colon cancer 07/29/2022 Overview (07/29/2022): Added automatically from request for surgery [id number] Bradycardia 09/26/2021 E. coli UTI 09/25/2021 COVID-19 09/21/2021 TIA (transient ischemic attack) 03/26/2021 Atherosclerosis of abdominal aorta 08/02/2018 Type 2 diabetes mellitus with peripheral neuropa thy 11/13/2015 Assessment & Plan (06/04/2025 4:15 PM EDT): Orders: gabapentin (NEURONTIN) 300 mg Oral Capsule; Take 2 Capsules by mouth 3 times daily. Blood Sugar Diagnostic (ONETOUCH VERIO TEST STRIPS) Misc Strip; 1 Strip by Other route 3 times daily. Blood-Glucose Meter Misc Kit; Any meter covered by insurance- test TID before meals omega-3 acid ethyl esters (LOVAZA) 1 gram Oral Capsule; Take 2 Capsules by mouth 2 times daily. Assessment & Plan (03/05/2025 1:49 PM EDT): Lab Results Component Value Date HGBA1C 7.8 (H) 12/04/2024 Orders: gabapentin (NEURONTIN) 300 mg Oral Capsule; Take 2 Capsules by mouth 3 times daily. Assessment & Plan (12/04/2024 1:12 PM EST): Cont meds - see below Orders: HEMOGLOBIN A1C; Future Hypothyroidism 09/12/2014 Assessment & Plan (06/04/2025 4:15 PM EDT): Orders: LEVOthyroxine (SYNTHROID) 125 mcg Oral Tablet; Take 1 Tablet by mouth daily. Assessment & Plan (03/05/2025 1:49 PM EDT): Orders: LEVOthyroxine (SYNTHROID) 125 mcg Oral Tablet; Take 1 Tablet by mouth daily. Hyperlipidemia LDL goal <100 09/12/2014 Assessment & Plan (06/04/2025 4:15 PM EDT): Lab Results Component Value Date LDLCALC 49 09/09/2024 Orders: atorvastatin (LIPITOR) 80 mg Oral Tablet; Take 1 Tablet by mouth daily. Heart failure 09/12/2014 Assessment & Plan (06/04/2025 4:15 PM EDT): Orders: carvediloL (COREG) 3.125 mg Oral Tablet; Take 1 Tablet by mouth 2 times daily. Assessment & Plan (12/04/2024 1:12 PM EST): Cont meds Chronic pain of both knees 09/02/2014 Herniated disc 09/02/2014 Ventral hernia, recurrent 10/17/2013 Obesity, Class III, BMI 40-49.9 (morbid obesity) 02/29/2012 Assessment & Plan (12/04/2024 1:12 PM EST): Expressive aphasia Dysarthria Resolved Problems Problem Noted Date Diagnosed Date Resolved Date History of arterial ischemic stroke 12/04/2024 12/04/2024 Nausea & vomiting 09/08/2024 12/04/2024 Acute respiratory failure with hypoxemia 09/24/2021 11/09/2021 Polyneuropathy in diabetes 04/24/2015 0 08/01/2018 Morbid obesity 09/02/2014 04/24/2015 Hypothyroid 09/02/2014 03/12/2015 Neuropathy 09/02/2014 04/24/2015 Chest pain 02/29/2012 09/02/2014 Dyslipidemia 02/29/2012 11/10/2016 Left sided numbness 12/04/19 25 Left arm weakness 12/04/2024 Immunizations Immunization Administration Dates Next Due Hepatitis B (Recombinant), Adjuvanted 04/29/2020 Influenza Intradermal 09/02/2014 Influenza Vaccine Quadrivalent 08/13/2015 Influenza Vaccine Quadrivalent PF 08/13/2019,,11/10/2016 Influenza Vaccine, Unspecified Formulation 08/27 Influenza Virus Vaccine Quad rivalant, Flublok 09/17/2020 Pneumococcal Polysaccharide 23 Valent 08/27/2011 Tdap 03/21/2018 Family History Medical History Relation Name Comments Amputation Toes Brother 1 Diabetes Brother 1 Heart Stents Brother 1 Heart Attack Father High Blood Pressure Father High Cholesterol Father Stroke Maternal Grandmother Diabetes Mother High Blood Pressure Mother High Cholesterol Mother Anesth Problems Neg Hx Relation Name Status Comments Brother 1 Alive Brother 2 Alive Brother 3 Alive Father Maternal Grandfather Maternal Grandmother Mother Paternal Grandfather Paternal Grandmother Social History Smoking Status as of 06/16/2025 Tobacco Use Types Packs/Day Years Used Date Smoking Tobacco: Never Assessed [facility] Utilities Answer Date Recorded In the past [...] Date Recorded PHQ-2 Total Score 0 09/10/2024 [facility] - [...] things needed for daily living? No 12/05/2023 [facility] IP Transportation Answer D ate Recorded In the past 12 months, has l ack of reliable transportation kept you from medical appointments, meetings, work or from getting things needed for daily living? No 09/10/2024 Sex and Gender Information Value Date Recorded Sex Assigned at Not on file Legal Sex Female 1:13 AM EDT Gender Identity Not on file Sexual Orientation Not on file Last Filed Vital Signs Vital Sign Reading Time Taken Comments Blood Pressure 150/90 06/04/2025 11:07 AM EDT Pulse 72 06/04/2025 11:07 AM EDT Temperature 35.7 C (96.3 F) 06/04/2025 11:07 AM EDT Respiratory Rate 17 04/10/2025 12:3 0 PM EDT Oxygen Saturation 96% 06/04/2025 11: 07 AM EDT Inhaled Oxygen Concentration - - Weight 123.2 kg (271 lb 9.6 oz) 025 11:07 AM EDT Height 162.6 cm (5' 4 ) 06/04/2025 11:0 7 AM EDT Body Mass Index 46.62 06/04/2025 11:07 AM EDT Plan of Treatment Upcoming Encounters Date Type Department Care Team (Late st Contact Info) Description 09/30/2025 10:30 AM EST Office Visit [facility] [place] [facility] [address] [place] [address] Malinda Patterson MD [address] [place] [address] Medical Devices Implanted Type Area [employer] Lead Device Identifier Shelf Expiration Date Model / Serial / Lot Mesh Bard Soft 4 X 6 (10cm X 15cm) - [id number] Implanted:Qty: 1 on 07/31/[address] MD at [facility] N/A: Abdomen CR BARD:DAVOL 04/03/2020 [id number] / / [id number] Desara Blue Ss Short Suture Mesh Sling - [id number] Implanted:Qty: 1 on 01/02/2025 by Yesi Junior MD at [facility] N/A: Urethra [employer] 03/23/2027 [id number] / / [id number] Procedures Procedure Name Priority Date/Time Associated Diagnosis Comments MICROALBUMIN/CREATIN INE RATIO URINE Routine 06/04/2025 11:24 AM EDT [...] with long-term current use of insulin (HCC) BASIC METABOLIC PANEL STAT 04/10/2025 11:00 AM EDT CBC STAT 04/10/2025 11:00 AM EDT GLUCOSE METER POC Routine 04/10/2025 10:24 AM EDT SCANNED EKG 03/07/2025 2:[address] ABD PEL ED FAST W CONTRAST STAT 03/07/2025 2:43 AM EDT TROPONIN-T HIGH SENSITIVITY BASELINE W/ REFLEX STAT 03/07/2025 2:00 AM EDT COMPREHENSIVE METABOLIC PANEL STAT 03/07/2025 2:00 AM EDT CBC WITH DIFF STAT 03/07/2025 2:00 AM EDT EK EKG 12 LEAD STAT 03/07/2025 1:16 AM EDT COMPLIANCE PANEL, URINE Routine 03/05/2025 11:28 AM EDT Encounter for long-term (current) use of high-risk medication SCANNED RHYTHM STRIPS 01/03/2025 10:20 AM EST SCANNED RHYTHM STRIPS 01/03/2025 10:20 AM EST GLUCOSE METER POC Routine 01/02/2025 3:14 PM EST INTRAOP AIRWAY PLACEMENT Routine 01/02/2025 12:01 PM EST TRANSOBTURATOR TAPE URETHROPEXY-TOT- SUBURETHRAL WITH CYSTOSCOPY 01/02/2025 11:55 AM EST Female genital prolapse, unspecified type Rectocele Cystocele, midline EDITH (stress urinary incontinence, female) Special Needs sk GA CYSTOURETHROSCOPY 01/02/2025 11:55 AM EST Female genital prolapse, unspecified type Rectocele Cystocele, midline EDITH (stress urinary incontinence, female) Special Needs sk GA SLING OPERATION STRESS INCONTINENCE 01/02/2025 11:55 AM EST Female genital prolapse, unspecified type Rectocele Cystocele, midline EDITH (stress urinary incontinence, female) Special Needs sk GA POST COLPORRHAPHY RECTOCELE W/WO PERINEORRHAPHY 01/02/2025 11:55 AM EST Female genital prolapse, unspecified type Rectocele Cystocele, midline EDITH (stress urinary incontinence, female) Special Needs sk POCT URINE Routine 01/02/2025 10:35 AM EST Female genital prolapse, unspecified type Rectocele Cystocele, midline EDITH (stress urinary incontinence, female) GLUCOSE METER POC Routine 01/02/2025 9:45 AM EST POCT EKG Routine 01/01/2025 8:36 AM EST Pre-op examination SCANNED RHYTHM STRIPS 12/07/2024 10:21 AM EST GLUCOSE METER POC Routine 12/06/2024 4:14 PM EST PATHOLOGY TISSUE REQUEST Routine 12/06/2024 3:37 PM EST Calculus of gallbladder with chronic cholecystitis without obstruction INTRAOP AIRWAY PLACEMENT Routine 12/06/2024 3:05 PM EST GA LAPAROSCOPY SURG CHOLECYSTECTOMY 12/06/2024 2:58 PM EST Calculus of gallbladder with chronic cholecystitis without obstruction Special Needs sk GLUCOSE METER POC Routine 12/06/2024 11:19 AM EST CBC WITH DIFF Routine 12/04/2024 1:02 PM EST Pre-op examination HEMOGLOBIN A1C Routine 12/04/2024 1:02 PM EST Type 2 diabetes mellitus with peripheral neuropathy (HCC) COMPREHENSIVE METABOLIC PANEL Routine 12/04/2024 1:02 PM EST Pre-op examination SCANNED EKG 10/17/2024 1:10 PM EST URINALYSIS REFLEX STAT 10/15/2024 8:35 PM EST UA W/REFLEX TO CULTURE STAT 10/15/2024 8:35 PM EST EXTRA WALL URINE CX STAT 10/15/2024 8:[address] ABD PEL ED FAST W CONTRAST STAT 10/15/2024 8:25 PM EST TROPONIN-T HIGH SENSITIVITY BASELINE W/ REFLEX STAT 10/15/2024 7:27 PM EST LIPASE LEVEL STAT 10/15/2024 7:27 PM EST COMPREHENSIVE METABOLIC PANEL STAT 10/15/2024 7:27 PM EST CBC WITH DIFF STAT 10/15/2024 7:27 PM EST SALINE LOCK IV STAT 10/15/2024 6:58 PM EST EK EKG 12 LEAD STAT 10/15/2024 4:57 PM EST SCANNED EKG 09/10/2024 11:48 AM EST GLUCOSE METER POC Routine 09/10/2024 11:32 AM EST POTASSIUM REPEAT Routine 09/10/2024 9:57 AM EST NM MYOCARDIAL PERFUSION SPECT STRESS AND REST EMILIE 09/10/2024 9:[address] STRESS TEST LEXISCAN Routine 09/10/2024 8:57 AM EST GLUCOSE METER POC Routine 09/10/2024 7:40 AM EST ECG AND WAVEFORMS - TELEMETRY Routine 09/10/2024 6:59 AM EST CBC WITH DIFF Early AM 09/10/2024 6:32 AM EST BASIC METABOLIC PANEL Early AM 09/10/2024 6:32 AM EST GLUCOSE METER POC Routine 09/09/2024 10:16 PM EST ECG AND WAVEFORMS - TELEMETRY Routine 09/09/2024 7:15 PM EST GLUCOSE METER POC Routine 09/09/2024 6:01 PM EST GLUCOSE METER POC Routine 09/09/2024 12:26 PM EST GLUCOSE METER POC Routine 09/09/2024 7:38 AM EST ECG AND WAVEFORMS - TELEMETRY Routine 09/09/2024 7:19 AM EST LIPID SCREEN Early AM 09/09/2024 6:52 AM EST CBC WITH DIFF Early AM 09/09/2024 6:52 AM EST BASIC METABOLIC PANEL Early AM 09/09/2024 6:52 AM EST GLUCOSE METER POC Routine 09/08/2024 9:53 PM EDT ECG AND WAVEFORMS - TELEMETRY Routine 09/08/2024 8:20 PM EDT GLUCOSE METER POC Routine 09/08/2024 4:28 PM EDT GLUCOSE METER POC Routine 09/08/2024 12:44 PM EDT GLUCOSE METER POC Routine 09/08/2024 11:26 AM EDT GLUCOSE METER POC Routine 09/08/2024 8:44 AM EDT ECG AND WAVEFORMS - TELEMETRY Routine 09/08/2024 7:03 AM EDT CBC WITH DIFF Early AM 09/08/2024 5:34 AM EDT BASIC METABOLIC PANEL Early AM 09/08/2024 5:34 AM EDT ADMIT Routine 09/08/2024 4:42 AM EDT GLUCOSE METER POC Routine 09/08/2024 2:28 AM EDT URINALYSIS REFLEX STAT 09/08/2024 1:56 AM EDT UA W/REFLEX TO CULTURE STAT 09/08/2024 1:56 AM EDT EXTRA WALL URINE CX STAT 09/08/2024 1:56 AM EDT TROPONIN-T HIGH SENSITIVITY 2HR Timed 09/08/2024 1:[address] ABD PEL ED FAST W CONTRAST STAT 09/08/2024 12:37 AM EDT D-DIMER STAT 09/07/2024 11:57 PM EDT HEPATIC FUNCTION PANEL Add-On 09/07/2024 10:46 PM EDT LIPASE LEVEL Add-On 09/07/2024 10:46 PM EDT TROPONIN-T HIGH SENSITIVITY BASELINE W/ REFLEX STAT 09/07/2024 10:46 PM EDT BASIC METABOLIC PANEL STAT 09/07/2024 10:46 PM EDT CBC STAT 09/07/2024 10:46 PM EDT XR CHEST AP PORTABLE EMILIE 09/07/2024 10:45 PM EDT EK EKG 12 LEAD STAT 09/07/2024 10:34 PM EDT SALINE LOCK IV STAT 09/07/2024 10:34 PM EDT SEP URINALYSIS POC Routine 08/13/2024 7:57 AM EDT Urinary frequency URINALYSIS Routine 07/17/2024 3:01 PM EDT Urinary frequency URINE CULTURE (NO STAIN) Routine 07/17/2024 3:01 PM EDT Urinary frequency MM MAMMO DIGITAL KATIE SCREEN BILAT Routine 07/12/2024 10:19 AM EDT Encounter for screening mammogram for breast cancer MICROALBUMIN/CREATIN INE RATIO URINE Routine 07/12/2024 7:41 AM EDT Type 2 diabetes mellitus with hyperglycemia, with long-term current use of insulin (HCC) THYROID STIMULATING HORMONE Routine 07/12/2024 7:32 AM EDT Acquired hypothyroidism T4, FREE (THYROXINE) Routine 07/12/2024 7:32 AM EDT Acquired hypothyroidism LIPID PANEL REFLEX Routine 07/12/2024 7:32 AM EDT Hyperlipidemia associated with type 2 diabetes mellitus (HCC) COMPREHENSIVE METABOLIC PANEL Routine 07/12/2024 7:32 AM EDT Hyperlipidemia associated with type 2 diabetes mellitus (HCC) Hypertension associated with type 2 diabetes mellitus (HCC) HEMOGLOBIN A1C Routine 07/12/2024 7:32 AM EDT Type 2 diabetes mellitus with hyperglycemia, with long-term current use of insulin (HCC) SEEDLING PULLER CYTOLOGY REQUEST (PAP ONLY) Routine 07/11/2024 11:41 AM EDT Cervical cancer screening [facility] SEEDLING PULLER CYTOLOGY ORDER Routine 07/11/2024 11:41 AM EDT Cervical cancer screening TRICHOMONAS VAGINALIS BY TMA (PAP PANEL) Routine 07/11/2024 11:41 AM EDT Cervical cancer screening GC CHLAMYDIA THIN PREP Routine 07/11/2024 11:41 AM EDT Cervical cancer screening HPV HIGH RISK WITH REFLEX TO GENOTYPE Routine 07/11/2024 11:41 AM EDT Cervical cancer screening POCT GLYCATED HEMOGLOBIN, TOTAL Routine 07/11/2024 11:14 AM EDT Type 2 diabetes mellitus with peripheral neuropathy (HCC) SCANNED EKG 06/29/2024 12:07 PM EDT URINALYSIS REFLEX STAT 06/28/2024 3:59 PM EDT UA W/REFLEX TO CULTURE STAT 06/28/2024 3:59 PM EDT EXTRA WALL URINE CX STAT 06/28/2024 3:59 PM EDT PT / INR STAT 06/28/2024 2:25 PM EDT LACTIC ACID STAT 06/28/2024 2:25 PM EDT TROPONIN-T HIGH SENSITIVITY BASELINE W/ REFLEX STAT 06/28/2024 2:25 PM EDT LIPASE LEVEL STAT 06/28/2024 2:25 PM EDT COMPREHENSIVE METABOLIC PANEL STAT 06/28/2024 2:25 PM EDT CBC WITH DIFF STAT 06/28/2024 2:25 PM EDT SALINE LOCK IV STAT 06/28/2024 1:42 PM EDT EK EKG 12 LEAD STAT 06/28/2024 1:35 PM EDT GLUCOSE METER POC Routine 05/16/2024 10:31 AM EDT POCT GLYCATED HEMOGLOBIN, TOTAL Routine 05/07/2024 10:34 AM EDT Type 2 diabetes mellitus with hyperglycemia, with long-term current use of insulin (HCC) POCT GLYCATED HEMOGLOBIN, TOTAL Routine 02/02/2024 8:19 AM EDT Type 2 diabetes mellitus with hyperglycemia, with long-term current use of insulin (HCC) POCT GLUCOSE Routine 12/05/2023 3:15 PM EST Type 2 diabetes mellitus with peripheral neuropathy (HCC) GLUCOSE METER POC Routine 11/23/2023 12:35 PM EST [id number] A/B Routine 11/23/2023 10:11 AM EST XR CHEST PA AND LATERAL EMILIE 11/23/2023 9:39 AM EST URINALYSIS REFLEX STAT 11/23/2023 9:19 AM EST UA W/REFLEX TO CULTURE STAT 11/23/2023 9:19 AM EST EXTRA WALL URINE CX STAT 11/23/2023 9:19 AM EST BASIC METABOLIC PANEL STAT 11/23/2023 7:47 AM EST CBC WITH DIFF STAT 11/23/2023 7:47 AM EST GLUCOSE METER POC Routine 11/23/2023 7:11 AM EST BASIC METABOLIC PANEL Routine 10/03/2023 11:05 AM EST Type 2 diabetes mellitus with peripheral neuropathy (HCC) HEMOGLOBIN A1C Routine 10/03/2023 11:05 AM EST Type 2 diabetes mellitus with peripheral neuropathy (HCC) POCT DEVAN SARS ANTIGEN Routine 09/23/2023 9:55 AM EST Person under investigation for COVID-19 URINALYSIS REFLEX STAT 07/13/2023 9:56 PM EDT UA W/REFLEX TO CULTURE STAT 07/13/2023 9:56 PM EDT EXTRA WALL URINE CX STAT 07/13/2023 9:56 PM EDT BASIC METABOLIC PANEL Routine 06/21/2023 11:52 AM EDT Type 2 diabetes mellitus with peripheral neuropathy (HCC) HEMOGLOBIN A1C Routine 06/21/2023 11:52 AM EDT Type 2 diabetes mellitus with peripheral neuropathy (HCC) MOLECULAR VAGINITIS PANEL (MVP) Routine 06/21/2023 11:51 AM EDT Vaginal irritation SEP URINALYSIS POC Routine 03/25/2023 3:19 PM EDT UTI (urinary tract infection), uncomplicated HEMOGLOBIN A1C Routine 12/22/2022 10:18 AM EST Type 2 diabetes mellitus with peripheral neuropathy (HCC) COMPREHENSIVE METABOLIC PANEL Routine 12/22/2022 10:18 AM EST Type 2 diabetes mellitus with peripheral neuropathy (HCC) CBC WITH DIFF Routine 12/22/2022 10:18 AM EST Chronic heart failure, unspecified heart failure type (HCC) LIPID PANEL REFLEX Routine 12/22/2022 10:18 AM EST Atherosclerosis of aorta TSH REFLEX TO FT4 Routine 12/22/2022 10:18 AM EST Hypothyroidism, unspecified type COMPLIANCE PANEL, URINE Routine 12/22/2022 9:55 AM EST High risk medications (not anticoagulants) long-term use POCT URINE MICROALBUMIN Routine 12/22/2022 9:54 AM EST INTRAOP AIRWAY PLACEMENT Routine 10/21/2022 1:35 PM EST COLONOSCOPY-ENDO DEPT ONLY (ANESTHESIA) 10/21/2022 1:34 PM EST Screening for colon cancer GMED COLONOSCOPY Routine 10/21/2022 1:20 PM EST GLUCOSE METER POC Routine 10/21/2022 12:49 PM EST IRIS DIABETIC RETINOPATHY EXAM Routine 10/06/2022 10:12 AM EST Type 2 diabetes mellitus without complication, unspecified whether long-term insulin use (HCC) SCANNED EKG 09/24/2022 11:28 AM EST XR CHEST AP PORTABLE EMILIE 09/22/2022 12:44 PM EST [id number] A/B Routine 09/22/2022 12:15 PM EST COMPREHENSIVE METABOLIC PANEL STAT 09/22/2022 12:14 PM EST CBC WITH DIFF STAT 09/22/2022 12:14 PM EST EK EKG 12 LEAD STAT 09/22/2022 12:05 PM EST T4, FREE (THYROXINE) Routine 06/28/2022 11:56 AM EDT Hypothyroidism, unspecified type VITAMIN D 25 HYDROXY Routine 06/28/2022 11:56 AM EDT Post-menopausal CBC Routine 06/28/2022 11:56 AM EDT Annual physical exam LIPID PANEL REFLEX Routine 06/28/2022 11:56 AM EDT Hyperlipidemia LDL goal <100 TSH REFLEX TO FT4 Routine 06/28/2022 11:56 AM EDT Hypothyroidism, unspecified type HEMOGLOBIN A1C Routine 06/28/2022 11:56 AM EDT Type 2 diabetes mellitus with peripheral neuropathy (HCC) COMPREHENSIVE METABOLIC PANEL Routine 06/28/2022 11:56 AM EDT Type 2 diabetes mellitus with peripheral neuropathy (HCC) SCANNED EKG 12/21/2021 6:40 PM EST TROPONIN-T HIGH SENSITIVITY 2HR Timed 12/18/2021 8:[address] HEAD WO CONTRAST STAT 12/18/2021 7:46 PM EST XR CHEST AP PORTABLE EMILIE 12/18/2021 6:47 PM EST CORONAVIRUS 2019 Routine 12/18/2021 6:44 PM EST TROPONIN-T HIGH SENSITIVITY BASELINE W/ REFLEX STAT 12/18/2021 6:14 PM EST BASIC METABOLIC PANEL STAT 12/18/2021 6:14 PM EST CBC STAT 12/18/2021 6:14 PM EST EK EKG 12 LEAD STAT 12/18/2021 6:07 PM EST POCT GLYCATED HEMOGLOBIN, TOTAL Routine 11/09/2021 12:17 PM EST Type 2 diabetes mellitus with peripheral neuropathy (HCC) POCT URINE MICROALBUMIN Routine 11/09/2021 12:14 PM EST Type 2 diabetes mellitus with peripheral neuropathy (HCC) ECG AND WAVEFORMS - TELEMETRY Routine 09/26/2021 11:37 AM EST GLUCOSE METER POC Routine 09/26/2021 8:15 AM EST ECG AND WAVEFORMS - TELEMETRY Routine 09/26/2021 7:55 AM EST ECG AND WAVEFORMS - TELEMETRY Routine 09/26/2021 2:21 AM EST GLUCOSE METER POC Routine 09/25/2021 9:41 PM EST ECG AND WAVEFORMS - TELEMETRY Routine 09/25/2021 7:00 PM EST GLUCOSE METER POC Routine 09/25/2021 4:35 PM EST GLUCOSE METER POC Routine 09/25/2021 9:16 AM EST ECG AND WAVEFORMS - TELEMETRY Routine 09/25/2021 7:03 AM EST C-REACTIVE PROTEIN Routine 09/25/2021 6:25 AM EST GLUCOSE METER POC Routine 09/24/2021 9:[address] ANGIOGRAM PULMONARY W CONTRAST STAT 09/24/2021 8:56 PM EST ECG AND WAVEFORMS - TELEMETRY Routine 09/24/2021 7:00 PM EST GLUCOSE METER POC Routine 09/24/2021 5:47 PM EST ECG AND WAVEFORMS - TELEMETRY Routine 09/24/2021 5:29 PM EST ADMIT Routine 09/24/2021 11:28 AM EST SCANNED EKG 09/24/2021 10:35 AM EST REPEAT LACTIC ACID STAT 09/24/2021 7:35 AM EST URINALYSIS STAT 09/24/2021 5:13 AM EST URINE CULTURE (NO STAIN) STAT 09/24/2021 5:13 AM EST BLOOD CULTURE (NO STAIN) STAT 09/24/2021 4:59 AM EST PROCALCITONIN STAT 09/24/2021 4:50 AM EST REPEAT LACTIC ACID STAT 09/24/2021 4:50 AM EST BLOOD CULTURE (NO STAIN) STAT 09/24/2021 4:50 AM EST ADMIT STAT 09/24/2021 4:29 AM EST XR CHEST AP PORTABLE EMILIE 09/24/2021 2:48 AM EST EK EKG 12 LEAD STAT 09/24/2021 2:40 AM EST FERRITIN Routine 09/24/2021 2:39 AM EST C-REACTIVE PROTEIN STAT 09/24/2021 2:39 AM EST BLOOD GAS, VENOUS STAT 09/24/2021 2:39 AM EST LACTIC ACID STAT 09/24/2021 2:39 AM EST D-DIMER STAT 09/24/2021 2:39 AM EST COMPREHENSIVE METABOLIC PANEL STAT 09/24/2021 2:39 AM EST CBC WITH DIFF STAT 09/24/2021 2:39 AM EST XR CHEST AP PORTABLE EMILIE 09/21/2021 2:24 AM EST BASIC METABOLIC PANEL STAT 09/21/2021 2:06 AM EST CBC STAT 09/21/2021 2:06 AM EST CORONAVIRUS 2019 POCT Routine 09/21/2021 2:06 AM EST EK EKG 12 LEAD STAT 09/17/2021 5:16 PM EST BLOOD GAS, VENOUS STAT 09/17/2021 4:34 PM EST REPEAT LACTIC ACID STAT 09/17/2021 4:34 PM EST BLOOD CULTURE (NO STAIN) STAT 09/17/2021 4:34 PM EST BLOOD CULTURE (NO STAIN) STAT 09/17/2021 4:34 PM EST TROPONIN-T HIGH SENSITIVITY 2HR Timed 09/17/2021 4:03 PM EST URINALYSIS STAT 09/17/2021 3:31 PM EST EXTRA WALL URINE CX STAT 09/17/2021 3:31 PM EST XR CHEST AP PORTABLE EMILIE 09/17/2021 1:48 PM EST PROCALCITONIN STAT 09/17/2021 1:11 PM EST LACTIC ACID STAT 09/17/2021 1:11 PM EST TROPONIN-T HIGH SENSITIVITY BASELINE W/ REFLEX STAT 09/17/2021 1:11 PM EST COMPREHENSIVE METABOLIC PANEL STAT 09/17/2021 1:11 PM EST CBC WITH DIFF STAT 09/17/2021 1:11 PM EST GLUCOSE METER POC Routine 09/17/2021 1:03 PM EST SALINE LOCK IV STAT 09/17/2021 12:51 PM EST POCT GLYCATED HEMOGLOBIN, TOTAL Routine 06/24/2021 11:20 AM EDT Type 2 diabetes mellitus with peripheral neuropathy (HCC) GLUCOSE METER POC Routine 03/28/2021 6:32 PM EDT GLUCOSE METER POC Routine 03/28/2021 12:19 PM EDT EC ECHOCARDIOGRAM COMPLETE WITH BUBBLE STUDY Routine 03/28/2021 12:06 PM EDT GLUCOSE METER POC Routine 03/28/2021 9:20 AM EDT ECG AND WAVEFORMS - TELEMETRY Routine 03/28/2021 7:33 AM EDT GLUCOSE METER POC Routine 03/27/2021 9:42 PM EDT ECG AND WAVEFORMS - TELEMETRY Routine 03/27/2021 7:[address] ANGIOGRAM CORONARY W CONTRAST EMILIE 03/27/2021 6:30 PM EDT GLUCOSE METER POC Routine 03/27/2021 5:29 PM EDT ADMIT Routine 03/27/2021 3:17 PM EDT TROPONIN-T HIGH SENSITIVITY 2HR Timed 03/27/2021 2:33 PM EDT XR CHEST AP PORTABLE EMILIE 03/27/2021 2:23 PM EDT GLUCOSE METER POC Routine 03/27/2021 1:41 PM EDT TROPONIN-T HIGH SENSITIVITY BASELINE W/ REFLEX STAT 03/27/2021 12:39 PM EDT IP CONSULT TO CARDIOLOGY Routine 03/27/2021 12:24 PM EDT Procedure Note - Fred Irvin MD - 03/27/2021 1:46 PM EDTThis note is in progress. Heart & Vascular Consult Note By: Earnestine Joe, SAMI, BONE CHAR OPERATOR PATIENT: Kristin Espinoza PCP: Malinda Patterson MD Primary Census Clerk: Reason for consult: none History provided by: patient History limited by: nothing HPI: 50 yo female, nonsmoker, w hx of: HTN HLD Hypothyroidism Type II DM Patient presented to the ED with complaints of left-sided weakness, facialnumbness, and aphasia. She reports symptoms resolved by the time she madeit to the ED. Neurology following completing stroke work-up. Cardiologyasked to evaluate with an episode of chest pain. Patient reports she waswalking to the bathroom when she had pain in her back that radiated to herchest she describes as pressure. She denies any prior issues of this athome. She states nitroglycerin relieved pain. No personal history ofischemic heart disease. Reports mother had multiple MIs and CVAsbeginning in her 50s and brother has had 9 stents. Past Medical History Past Medical History: Diagnosis Date Arthritis knees Asthma breathing machine as needed with weather changes CAD (coronary artery disease) Depression Diabetes mellitus (HCC) type 2, on PO med lantus and bydureon Diverticulitis HEBERT (dyspnea on exertion) GERD (gastroesophageal reflux disease) Headache(784.0) Hypercholesteremia Hypertension IBS (irritable bowel syndrome) Motion sickness Shortness of breath Thyroid disease hypothyroid TIA (transient ischemic attack) Umbilical hernia Urinary incontinence Urinary tract infection 05/2015 Medication nitroGLYCERIN aspirin 81 mg Oral Daily atorvastatin 80 mg Oral Nightly carvediloL 3.125 mg Oral BID gabapentin 600 mg Oral BID insulin aspart U-100 1-15 Units Subcutaneous QID WM insulin glargine 10 Units Subcutaneous QAM (Insulin) LEVOthyroxine 150 mcg Oral Daily miconazole Topical BID naproxen 500 mg Oral BID WM pantoprazole 40 mg Oral Daily sodium chloride 0.9% Intravenous 3 times per day acetaminophen OR acetaminophen, albuterol OR albuterol, dextrose,glucagon (human recombinant) AND sterile water, nitroGLYCERIN,ondansetron, senna-docusate, sodium chloride 0.9%, sodium chloride 0.9%,tiZANidine Past Surgical History Past Surgical History: Procedure Laterality Date APPENDECTOMY COLONOSCOPY DILATION AND CURETTAGE OF UTERUS ENDOMETRIAL ABLATION TUMOR REMOVAL fatty tumor, under left breast UMBILICAL HERNIA REPAIR 2005 [facility] VENTRAL HERNIA REPAIR 2009 [facility] VENTRAL HERNIA REPAIR N/A 07/31/2015 VENTRAL HERNIA and recurrent incisional hernia REPAIR WITH MESH ;Surgeon: Johnny St MD; Location: ED MAIN OR; Service: General Allergy Allergies Allergen Reactions Penicillins Other (See Comments) Says it does not work for her. Family History Family History Problem Relation Age of Onset High Blood Pressure Mother Diabetes Mother High Cholesterol Mother High Cholesterol Father High Blood Pressure Father Heart Attack Father Stroke Maternal Grandmother Anesth Problems Neg Hx Social History Social History Tobacco Use Smoking status: Never Smoker Smokeless tobacco: Never Used Substance Use Topics Alcohol use: Yes Comment: rare Review of Systems No headache, no LOC, no fever, no chills, no cough, no nausea or vomitingor diarrhea, no burning micturation, no seizures, all other symptomsnegative and reviewed by me. Objective: Telemetry: SR 03/27/2021 Last BP: BP: 131/77 Last pulse: Pulse: 79 Last resp: Resp: 20 Last temp: Temp: 97.7 F (36.5 C) Last SpO2: SpO2: 100 % Exam: see MD note Diagnostic tests Pertinent laboratory test have been reviewed The most recent cardiovascular imaging studies availabe in [facility] EMR werereviewed at time of consultation Assessment & Plan Active Hospital Problems Diagnosis *TIA (transient ischemic attack) Left sided numbness Left arm weakness Expressive aphasia Dysarthria Type 2 diabetes mellitus with peripheral neuropathy (HCC) Hyperlipidemia LDL goal <100 Hypothyroidism Morbid obesity with BMI of 50.0-59.9, adult (HCC) TIA -resolution of symptoms by ED Chest pain -exertional, relieved w nitro -hs-trop <6 -EKG SR w no acute ischemic changes from prior Type II DM -A1C 9.2 HTN -controlled -coreg HLD Hypothyroidism Plan: Exertional chest pain with hs-trop and EKG not concerning for ACS.Personal risk factors (HTN, uncontrolled DM) and strong family history ofCAD warrants evaluation with coronary CTA. Echo pending. Cont asa, statin, coreg Further input from Dr. Irvin Thank you for the consult. We will follow with you. Earnestine Joe APRN ATTENDING PHYSICIAN NOTE/ATTESTATION: I have reviewed other provider notes as well as the patient's past andpresent medical problems, medications, allergies, family history, socialhistory, laboratory and radiology studies. I have personally taken adetailed history and performed a detailed physical examination of thispatient. A cardiology team advanced practitioner also participated inthis patient's care. I have reviewed their history, physical, assessmentand plan. My findings are below and may differ slightly from theassessment and plan of the advanced practitioner. Patient with history of essential hypertension, hyperlipidemia type 2diabetes presents with TIA symptoms of left-sided weakness facial numbnessand aphasia. Symptoms resolved in the ED. Neurology following for strokework-up. Had an episode of chest pain today cardiology was consulted.Patient described initial symptoms of back pain radiated to the front ofher chest. Describes her chest tightness and pressure. Mentions she wasgiven nitroglycerin to help resolution of symptoms. Endorses a verystrong family history of heart disease mother with multiple MIs in her50s. Her brother recently had about 9 stents and multiple cardiac events.Concerning family history overall. No prior history of angina symptoms.No prior diagnosis of CAD. Troponin was checked x1 was negative.Cardiology was consult for evaluation. Feeling better after nitro. PE CONSTITUTIONAL: No apparent distress. Alert and oriented. EYES:Gaze is conjugate. Ptosis is absent. EARS, NOSE, MOUTH, THROAT: Oropharynx is clear. Nose is midline. NECK: Thyromegaly is absent. Trachea is midline. Masses are absent. RESPIRATORY: CTABL. No Wheezes or rales. CARDIOVASCULAR: RRR.. No Murmurs, rubs or gallops S1 and S2 normal. S3 orS4 are absent. Pulses are normal. JVD is normal. Edema is absent. NoCarotid Bruits GASTROINTESTINAL: Bowel sounds are normal. No Hepatomegaly orSplenomegaly Abdomen is soft and non tender. MUSCULOSKELETAL: No clubbing or Cyanosis SKIN: Rashes are visually absent. Turgor is normal. Warm and dry. NEUROLOGICAL: Grossly non focal. PSYCHIATRIC: Mood is normal. Affect is normal. STUDIES and LABS have been reviewed in detail. ASSESSMENT and PLAN: Kristin Espinoza is a 50 y.o. female and has the following medicalproblems: Chest pain TIA Essential hypertension Type 2 diabetes Strong family history of CAD and MIs Hyperlipidemia Obesity. Body mass index is 54.58 kg/m . Plan Concerning presentation of chest pain improved with nitroglycerin. Strongrisk factors for obstructive CAD and impressive family history of heartdisease as well. We will get a baseline coronary CT to rule out obstructive CAD Echocardiogram ordered. Clinically no evidence of LV dysfunction. Continue ASA and statin Further recommendations pending result of coronary CTA Fred Irvin MD [facility], [facility]. 03/27/2021 2:14 PM This chart was completed using voice recognition technology and maycontain unintended errors EK EKG 12 LEAD STAT 03/27/2021 12:23 PM EDT GLUCOSE METER POC Routine 03/27/2021 9:11 AM EDT MRI BRAIN WO CONTRAST EMILIE 03/27/2021 8:26 AM EDT LIPID PANEL REFLEX Timed 03/27/2021 7:51 AM EDT HEMOGLOBIN A1C Timed 03/27/2021 7:51 AM EDT ECG AND WAVEFORMS - TELEMETRY Routine 03/27/2021 7:02 AM EDT IP CONSULT TO WOUND CARE Routine 03/27/2021 5:27 AM EDT GLUCOSE METER POC Routine 03/26/2021 11:17 PM EDT IP CONSULT TO NEUROLOGY Routine 03/26/2021 9:58 PM EDT Procedure Note - Regine Madden DO - 03/27/2021 1:03 PM EDTThis note is in progress. Admit date: 03/26/2021 Admitting diagnosis: TIA (transient ischemic attack) [G45.9] Today's date: 03/27/2021 Current length of stay: 1 day(s) HPI: This is a 50 y.o. right handed female with a hx of CAD, DM,HTN, HLD, hypothyroidism, and depression whom I am seeing in neurologicconsultation at the request of Margaret Perez MD for evaluation ofstroke. The patient provides her own history additional history obtained from thechart. The patient states that yesterday around noon she started noticingdifficulty speaking and slurred speech along with left upper extremitynumbness and weakness. She states she also had some numbness of the leftside of her face. She states that she was at home and feeling normaluntil the symptoms came on about 1230. She knew what she wanted to saybut the words would not come out. She states when she did speak it wasgarbled. She states her face felt funny but she did not notice any facialdroop. She did have some blurred vision but no diplopia. No right-sidedsymptoms. She was able to ambulate. They reported resolution of symptoms in the emergency department. Stroketeam was called and she was not a TPA candidate given resolution ofsymptoms. They recommended stroke work-up and consideration of Plavix for6 months. She denies a history of similar symptoms in the past. She states there jamie family history of stroke in her mother. She takes aspirin 81 mg andLipitor 80 mg daily at home. She states compliance. 03/26/2021 CT head without contrast personally reviewed: Benign 03/26/2021 CTA head and neck: No significant occlusion, dissection oraneurysm 03/27/2021 MRI brain without contrast personally reviewed: No DWI/ADCchanges TTE with bubble study pending LDL: 70 Hemoglobin A1c: 9.2 Telemetry: NSR Past Medical History: Diagnosis Date Arthritis knees Asthma breathing machine as needed with weather changes CAD (coronary artery disease) Depression Diabetes mellitus (HCC) type 2, on PO med lantus and bydureon Diverticulitis HEBERT (dyspnea on exertion) GERD (gastroesophageal reflux disease) Headache(784.0) Hypercholesteremia Hypertension IBS (irritable bowel syndrome) Motion sickness Shortness of breath Thyroid disease hypothyroid TIA (transient ischemic attack) Umbilical hernia Urinary incontinence Urinary tract infection 05/2015 Active Hospital Problems Diagnosis *TIA (transient ischemic attack) Type 2 diabetes mellitus with peripheral neuropathy (HCC) Hyperlipidemia LDL goal <100 Hypothyroidism Morbid obesity with BMI of 50.0-59.9, adult (HCC) Past Surgical History: Procedure Laterality Date APPENDECTOMY COLONOSCOPY DILATION AND CURETTAGE OF UTERUS ENDOMETRIAL ABLATION TUMOR REMOVAL fatty tumor, under left breast UMBILICAL HERNIA REPAIR 2005 [facility] VENTRAL HERNIA REPAIR 2009 [facility] VENTRAL HERNIA REPAIR N/A 07/31/2015 VENTRAL HERNIA and recurrent incisional hernia REPAIR WITH MESH ;Surgeon: Johnny St MD; Location: [facility]; Service: General Social History Tobacco Use Smoking status: Never Smoker Smokeless tobacco: Never Used Substance Use Topics Alcohol use: Yes Comment: rare Family History Problem Relation Age of Onset High Blood Pressure Mother Diabetes Mother High Cholesterol Mother High Cholesterol Father High Blood Pressure Father Heart Attack Father Stroke Maternal Grandmother Anesth Problems Neg Hx No current facility-administered medications on file prior to encounter. Current Outpatient Medications on File Prior to Encounter Medication Sig Dispense Refill albuterol (PROVENTIL HFA;VENTOLIN HFA) 90 mcg/actuation Inhl HFA AerosolInhaler INHALE 1 TO 2 PUFFS INTO THE LUNGS EVERY 4 HOURS NEEDED 18 g 0 aspirin 81 mg Oral Tablet, Chewable One daily 30 Tab 5 atorvastatin (LIPITOR) 80 mg Oral Tablet TAKE 1 TABLET BY MOUTH DAILY 90Tab 2 carvediloL (COREG) 3.125 mg Oral Tablet TAKE 1 TABLET BY MOUTH TWICEDAILY 180 Tab 0 gabapentin (NEURONTIN) 300 mg Oral Capsule Take 1 Cap by mouth 4 timesdaily. (Patient taking differently: Take 600 mg by mouth 2 times daily.)360 Cap 0 hydrocortisone 2.5 % Top Ointment APPLY EXTERNALLY TO THE AFFECTED AREATHREE TIMES DAILY (Patient taking differently: APPLY EXTERNALLY TO THEAFFECTED AREA THREE TIMES DAILY NEEDED) 28.35 g 5 LEVOthyroxine (SYNTHROID) 150 mcg Oral Tablet TAKE 1 TABLET BY MOUTHDAILY 90 Tab 1 metFORMIN (GLUCOPHAGE) 1,000 mg Oral Tablet TAKE 1 TABLET BY MOUTH TWICEDAILY (Patient taking differently: Take 500 mg by mouth 2 times daily(with meals).) 180 Tab 0 naproxen (NAPROSYN) 500 mg Oral Tablet TAKE 1 TABLET BY MOUTH TWICEDAILY WITH MEALS 180 Tab 0 omega-3 acid ethyl esters (LOVAZA) 1 gram Oral Capsule TAKE 2 CAPSULESBY MOUTH TWICE DAILY 120 Cap 0 omeprazole (PRILOSEC) 20 mg Oral Capsule, Delayed Release(E.C.) Take 1Cap by mouth daily. 30 Cap 5 tiZANidine (ZANAFLEX) 4 mg Oral Tablet Take 1 Tab by mouth 3 times dailyas needed for Muscle spasms. 90 Tab 0 BYDUREON 2 mg/0.65 mL SubQ Pen Injector SUBCUTANEOUSLY INJECT 2 MG EVERY7 DAYS (Patient not taking: SUBCUTANEOUSLY INJECT 2 MG EVERY 7 DAYS) 4Each 0 fUROsemide (LASIX) 20 mg Oral Tablet Take 1 Tab by mouth daily asneeded. (Patient not taking: Reported on 03/26/2021) 30 Tab 2 Lancets Misc Misc 1 Each by Misc.(Non-Drug; Combo Route) route 3 timesdaily. (Patient not taking: Reported on 01/02/2021) 1 box 11 LANTUS SOLOSTAR U-100 INSULIN 100 unit/mL (3 mL) SubQ Insulin PenADMINISTER 20 UNITS UNDER THE SKIN EVERY NIGHT (Patient not taking:ADMINISTER 20 UNITS UNDER THE SKIN EVERY NIGHT) 15 mL 0 BRIDGET PEN NEEDLE 32 gauge x Misc Needle USE EVERY DAY WITH VICTOZAPEN (Patient not taking: Reported on 03/26/2021) 100 Each 0 Scheduled Meds: nitroGLYCERIN aspirin 81 mg Oral Daily atorvastatin 80 mg Oral Nightly carvediloL 3.125 mg Oral BID gabapentin 600 mg Oral BID insulin aspart U-100 1-15 Units Subcutaneous QID WM insulin glargine 10 Units Subcutaneous QAM (Insulin) LEVOthyroxine 150 mcg Oral Daily miconazole Topical BID naproxen 500 mg Oral BID WM pantoprazole 40 mg Oral Daily sodium chloride 0.9% Intravenous 3 times per day Continuous Infusions: PRN Meds:.acetaminophen OR acetaminophen, albuterol OR albuterol,dextrose, glucagon (human recombinant) AND sterile water,nitroGLYCERIN, ondansetron, senna-docusate, sodium chloride 0.9%, sodiumchloride 0.9%, tiZANidine Allergies Allergen Reactions Penicillins Other (See Comments) Says it does not work for her. ROS: Denies CP, SOB, diaphoresis, palpitations, N/V/D, constipation, dysuria,hematuria, F/C, recent illnesses, or sick exposures. All other systemsreviewed and are negative. Physical Examination: Patient Vitals for the past 24 hrs: BP Temp Temp src Pulse Resp SpO2 Height Weight 03/27/21 1227 131/77 -- -- 79 -- -- -- -- 03/27/21 1217 147/83 -- -- 77 20 100 % -- -- 03/27/21 0915 125/74 98 F (36.7 C) Oral 77 18 100 % -- -- 03/27/21 0513 144/74 97.6 F (36.4 C) Oral 89 18 96 % -- -- 03/27/21 0111 107/44 98 F (36.7 C) Oral 76 18 98 % -- -- 03/26/21 2300 -- -- -- -- -- -- 5' 4 (1.626 m) (!) 318 lb (144.2 kg) 03/26/21 2258 122/60 -- -- 70 -- -- -- -- 03/26/21 2124 126/61 97.9 F (36.6 C) Oral 72 20 98 % -- -- 03/26/211956 -- -- -- 72 (!) 21 100 % -- -- 03/26/21 1940 109/61 -- -- 76 15 99 % -- -- 03/26/21 190 -- -- -- 65 15 98 % -- -- 03/26/21 1856 -- -- -- 67 18 98 % -- -- 03/26/21 1557 112/64 -- -- -- -- -- -- -- 03/26/21 1556 112/64 -- -- 66 (!) 21 99 % -- -- 03/26/21 1555 -- -- -- -- -- 98 % -- -- 03/26/21 1526 -- 98.4 F (36.9 C) Oral 81 16 -- -- -- General: This is a pleasant cooperative female in [facility]. HEENT: NC/AT, fundoscopic exam benign Cardiovascular: Carotid auscultation negative bilaterally. RRR, nomurmurs/gallops/rubs Resp: CTAB, no wheezes/rales/rhonchi Abd: soft, NT, ND Ext: no cyanosis, clubbing, edema, 2/4 pedal pulses bilaterally Mental Status: A+O to person, place, time and situation. Remote and recentmemory intact. Normal language, attention, concentration, fund ofknowledge. Cranial Nerves: II: Visual james full to confrontation. Pupils equal, round and reactiveto light, 5-3 mm OU. III, IV, : EOMI. No nystagmus V: Facial sensations symmetric to light touch VII: Facial movements symmetric, smile symmetric VIII: Hearing grossly intact IX, X: Palate raises midline, no uvula deviation XI: Shoulder shrug symmetric XII: Tongue protrudes midline Motor: No drift. 5/5 strength in bilateral upper and lower extremitiesproximally and distally. Normal muscle bulk and tone in bilateral upperand lower extremities. No spasticity, rigidity or tremor noted. Sensory: Sensation to light touch, temp, and vibration intact in thebilateral upper and lower extremities. Decreased sensation to vibrationin the bilateral lower extremities in a proximal to distal gradient. Coordination: Finger to nose and rapid alternating movements intact. Nodysmetria or dysdiadochokinesia. Reflexes: 2/4 bilateral biceps, triceps, brachioradialis. 2/4 bilateralpatellar, 1/4 bilateral Achilles. Toes downgoing bilaterally. Gait: Not assessed due to fall risk Labs and Imaging: Admission on 03/26/2021 Component Date Value Glucose Meter POC 03/26/2021 286* Sample Type 03/26/2021 Venous Patient Status 03/26/2021 Non-Critical Patient WBC 03/26/2021 10.0 RBC 03/26/2021 4.01 Hgb 03/26/2021 9.3* Hct 03/26/2021 31.9* MCV 03/26/2021 79.6* MCH 03/26/2021 23.2* MCHC 03/26/2021 29.2* RDW 03/26/2021 16.6* Platelet 03/26/2021 351 MPV 03/26/2021 11.9 Sodium 03/26/2021 132* Potassium 03/26/2021 4.7 Chloride 03/26/2021 98 Total CO2 03/26/2021 27 Anion Gap 03/26/2021 7 Calcium 03/26/2021 9.7 Glucose Lvl 03/26/2021 292* BUN 03/26/2021 19 Creatinine 03/26/2021 0.72 Albumin 03/26/2021 3.8 Total Protein 03/26/2021 6.9 Bili Total 03/26/2021 0.4 ALT 03/26/2021 20 AST 03/26/2021 17 Alk Phos 03/26/2021 124* GFR Afr Am 03/26/2021 112 GFR Non Afr Am 03/26/2021 97 TSH Reflex 03/26/2021 1.330 PT 03/26/2021 11.6 INR 03/26/2021 1.03 ECG INTERPRET 03/26/2021 NSR Glucose Meter POC 03/26/2021 164* Sample Type 03/26/2021 Capillary Patient Status 03/26/2021 Non-Critical Patient Hgb A1C 03/27/2021 9.2* Est. Avg Glucose 03/27/2021 217 Cholesterol 03/27/2021 142 Triglyceride 03/27/2021 134 HDL 03/27/2021 45 LDL Calculated 03/27/2021 70 Non-HDL-C Calculated 03/27/2021 97 Fasting Specimen? 03/27/2021 Yes Glucose Meter POC 03/27/2021 188* Sample Type 03/27/2021 Capillary Patient Status 03/27/2021 Non-Critical Patient Mri Brain Wo Contrast Result Date: 03/27/2021 No acute abnormality. - Note: Radiology results need to be interpretedwithin a comprehensive clinical context. If you have questions about theradiology report, please contact the office of the ordering clinician. Ct Head Stroke Protocol Result Date: 03/26/2021 No acute intracranial abnormality identified. To expedite care, porter examfindings were urgently telephoned to Dr. Michelle Harris by Dr. Lavon baker 03/26/2021 4:00 PM. Code STROKE Ek Ekg 12 Lead Result Date: 03/27/[address]21 [facility] [place] Date:2021-03-27 Pat Name: KRISTIN OLGA Department: DEPIDPatient ID: [id number] Room: [facility] Gender:Female Dials Supervisor: Junior : [id number] By: Margaret SANDOVAL Order Number: [id number] MD: Tammy IntervalsAxis Rate: 77P: 63 GA: 172 QRS:57 QRSD: 89 T: 51 QT:371 QTc: 421Interpretive Statements SINUSRHYTHM LOW QRS VOLTAGE IN PRECORDIAL LEADS Ek Ekg 12 Lead Result Date: 03/26/[address]21 [facility] [facility] [place] Date:2021-03-26 Pat Name: [facility] Department: DEPIDPatient ID: [id number] Room: Gender: FemaleTechnician: NANCY : [id number] By: [facility] Order Number: [id number] MD: Stewart Mesa [facility]ITAL[facility] Intervals [place] Rate:69 P: 60 GA: 178QRS: 64 QRSD: 88 T:58 QT: 386 QTc:416Interpretive Statements SINUS RHYTHM LOW QRS VOLTAGE IN PRECORDIAL LEADSElectronically Signed On 03-26-2021 14:48:38 EDT by Stewart Mesa MD Ct Angiogram Head And Neck Stroke Protocol Result Date: 03/26/2021 No large vessel occlusion, dissection, or aneurysm identified. - Note:Radiology results need to be interpreted within a comprehensive clinicalcontext. If you have questions about the radiology report, please contactthe office of the ordering clinician. NASCET criteria used for estimatesof stenosis. This scan was analyzed using Viz ContaCT (Viz LVO), usingAI-based computer-aided triage to detect the presence of a suspected largevessel occlusion (LVO). Impression/Recommendations: This is a 50 y.o. female with a hx of CAD, DM, HTN, HLD, hypothyroidism,and depression seen in neurologic evaluation regarding stroke. Transient left hemisomal paresthesias/weakness and aphasia-resolved.History most consistent with right hemispheric TIA. CT brain, CTA headand neck, and MRI brain benign. No evidence of acute ischemia. TTE withbubble study pending. LDL 70, at goal. Continue high-dose statin. Wesilviall switch from aspirin to Plavix 75 mg daily. Stroke risk factormodification, neurochecks, serial exams, remote telemetry, PT/OT/ST HLD-continue high-dose statin Peripheral neuropathy-likely secondary to diabetes and hypothyroidism. PNprecautions Uncontrolled DM-hemoglobin A1c 9.2. Needs better glycemic control Hypothyroidism-continue Synthroid Await stroke work-up. Will follow. Plan discussed with patient and allquestions answered. Thank you for allowing me to participate in the care of Kristin Espinoza.Please do no hesitate to contact me with any further questions orconcerns. This note was created using voice recognition technology and despiteproof-reading efforts may contain unintended errors. ECG AND WAVEFORMS - TELEMETRY Routine 03/26/2021 9:35 PM EDT ADMIT STAT 03/26/2021 6:05 PM EDT PT / INR STAT 03/26/2021 4:48 PM EDT TSH REFLEX TO FT4 STAT 03/26/2021 4:48 PM EDT COMPREHENSIVE METABOLIC PANEL STAT 03/26/2021 4:47 PM EDT CBC STAT 03/26/2021 4:[address] ANGIOGRAM HEAD AND NECK STROKE PROTOCOL STAT 03/26/2021 3:[address] HEAD STROKE PROTOCOL STAT 03/26/2021 3:48 PM EDT GLUCOSE METER POC Routine 03/26/2021 3:27 PM EDT EK EKG 12 LEAD STAT 03/26/2021 2:36 PM EDT POCT GLYCATED HEMOGLOBIN, TOTAL Routine 03/03/2021 12:10 PM EDT Type 2 diabetes mellitus with peripheral neuropathy (HCC) SEP URINALYSIS POC Routine 03/03/2021 11:33 AM EDT Urinary frequency COMPLIANCE PANEL, URINE Routine 03/03/2021 11:30 AM EDT Encounter for long-term (current) use of medications URINE CULTURE (NO STAIN) Routine 03/03/2021 11:[address] ABDOMEN PELVIS W CONTRAST Routine 01/07/2021 10:43 AM EST Incisional hernia, without obstruction or gangrene CREATININE ISTAT Routine 01/07/2021 10:38 AM EST MM MAMMO DIGITAL SCREENING W CAD BILAT Routine 01/01/2021 1:09 PM EST Encounter for screening mammogram for malignant neoplasm of breast CBC WITH DIFF Routine 11/12/2020 11:02 AM EST Heart failure (HCC) COMPREHENSIVE METABOLIC PANEL Routine 11/12/2020 11:02 AM EST Type 2 diabetes mellitus with peripheral neuropathy (HCC) LIPID PANEL REFLEX Routine 11/12/2020 11:02 AM EST Hyperlipidemia LDL goal <100 TSH REFLEX TO FT4 Routine 11/12/2020 11:02 AM EST Postinfectious hypothyroidism COMPLIANCE PANEL, URINE Routine 11/12/2020 10:50 AM EST Encounter for long-term (current) use of medications POCT URINALYSIS AUTOMATED Routine 11/12/2020 10:48 AM EST Dysuria POCT MICROALBUMIN Routine 11/12/2020 10:48 AM EST Type 2 diabetes mellitus with peripheral neuropathy (HCC) POCT GLYCATED HEMOGLOBIN, TOTAL Routine 11/12/2020 10:21 AM EST Type 2 diabetes mellitus with peripheral neuropathy (HCC) HEMOGLOBIN A1C Routine 04/30/2020 11:21 AM EDT Type 2 diabetes mellitus with peripheral neuropathy (HCC) TSH REFLEX TO FT4 Routine 04/30/2020 11:21 AM EDT Postinfectious hypothyroidism LIPID PANEL REFLEX Routine 04/30/2020 11:21 AM EDT Hyperlipidemia LDL goal <100 COMPREHENSIVE METABOLIC PANEL Routine 04/30/2020 11:21 AM EDT Type 2 diabetes mellitus with peripheral neuropathy (HCC) CBC WITH DIFF Routine 04/30/2020 11:21 AM EDT Viral upper respiratory tract infection XR FOOT LEFT AP LATERAL AND OBLIQUE Routine 04/29/2020 2:36 PM EDT Left foot pain URINE CULTURE (NO STAIN) Routine 12/18/2019 2:45 PM EST Dysuria POCT URINALYSIS AUTOMATED Routine 12/18/2019 2:44 PM EST Dysuria URINE CULTURE (NO STAIN) Routine 10/16/2019 12:26 PM EST Mid back pain POCT URINALYSIS AUTOMATED Routine 10/16/2019 12:24 PM EST Mid back pain POCT EKG Routine 10/16/2019 10:29 AM EST Mid back pain POCT MICROALBUMIN Routine 09/18/2019 1:20 PM EST Type 2 diabetes mellitus with peripheral neuropathy (HCC) PDM, GABAPENTIN, QN, URINE-QUEST Routine 05/31/2019 8:55 PM EDT High risk medications (not anticoagulants) long-term use HB-1 CUSTOM UDS PANEL-QUEST Routine 05/31/2019 8:55 PM EDT High risk medications (not anticoagulants) long-term use POCT GLYCATED HEMOGLOBIN, TOTAL Routine 05/31/2019 11:51 AM EDT Type 2 diabetes mellitus with peripheral neuropathy (HCC) [facility] REQUEST (PAP ONLY) Routine 02/26/2019 12:27 PM EDT Screening for cervical cancer [facility] ORDER Routine 02/26/2019 12:27 PM EDT Screening for cervical cancer HPV HIGH RISK Routine 02/26/2019 12:27 PM EDT Screening for cervical cancer MM MAMMO DIGITAL SCREENING W CAD BILAT Routine 02/14/2019 1:06 PM EDT Encounter for screening mammogram for breast cancer HM DIABETES EYE EXAM Routine 02/09/2019 [facility] CYTOLOG[facility] REQUEST (PAP ONLY) Routine 02/07/2019 11:51 AM EDT Encounter for gynecological examination without abnormal finding Cervical cancer screening [facility] ORDER Routine 02/07/2019 11:51 AM EDT Encounter for gynecological examination without abnormal finding Cervical cancer screening TRICHOMONAS VAGINALIS BY TMA Routine 02/07/2019 11:51 AM EDT Encounter for gynecological examination without abnormal finding Cervical cancer screening GC CHLAMYDIA THIN PREP Routine 02/07/2019 11:51 AM EDT Encounter for gynecological examination without abnormal finding Cervical cancer screening HPV HIGH RISK WITH REFLEX TO GENOTYPE Routine 02/07/2019 11:51 AM EDT Encounter for gynecological examination without abnormal finding Cervical cancer screening THYROID STIMULATING HORMONE Routine 02/07/2019 11:19 AM EDT Postinfectious hypothyroidism HEMOGLOBIN A1C Routine 02/07/2019 11:19 AM EDT Type 2 diabetes mellitus with peripheral neuropathy (HCC) LIPID PANEL REFLEX Routine 02/07/2019 11:19 AM EDT Hyperlipidemia LDL goal <100 COMPREHENSIVE METABOLIC PANEL Routine 02/07/2019 11:19 AM EDT Type 2 diabetes mellitus with peripheral neuropathy (HCC) SCANNED EKG 02/06/2019 6:57 PM EDT URINALYSIS STAT 02/05/2019 5:32 PM EDT EXTRA WALL URINE CX STAT 02/05/2019 5:32 PM EDT TROPONIN-T HIGH SENSITIVITY BASELINE W/ REFLEX STAT 02/05/2019 5:19 PM EDT BASIC METABOLIC PANEL STAT 02/05/2019 5:19 PM EDT CBC WITH DIFF STAT 02/05/2019 5:19 PM EDT GLUCOSE METER POC Routine 02/05/2019 4:07 PM EDT EK EKG 12 LEAD STAT 02/05/2019 3:56 PM EDT POCT MICROALBUMIN Routine 12/11/2018 2:40 PM EST Type 2 diabetes mellitus with peripheral neuropathy (HCC) POCT GLYCATED HEMOGLOBIN, TOTAL Routine 12/11/2018 2:20 PM EST Type 2 diabetes mellitus with peripheral neuropathy (HCC) XR FOOT LEFT AP LATERAL AND OBLIQUE Routine 08/02/2018 3:10 PM EDT Left foot pain THYROID STIMULATING HORMONE Routine 04/20/2018 10:56 AM EDT Postinfectious hypothyroidism BASIC METABOLIC PANEL Routine 04/20/2018 10:56 AM EDT Type 2 diabetes mellitus with peripheral neuropathy (HCC) HEMOGLOBIN A1C Routine 04/20/2018 10:56 AM EDT Type 2 diabetes mellitus with peripheral neuropathy (HCC) MM MAMMO DIGITAL SCREENING W CAD BILAT Routine 01/18/2018 2:14 PM EDT Encounter for screening mammogram for breast cancer POCT MICROALBUMIN Routine 01/10/2018 1:26 PM EST Type 2 diabetes mellitus with peripheral neuropathy (HCC) T4, FREE (THYROXINE) Routine 01/10/2018 11:56 AM EST Other specified hypothyroidism LIPID PANEL REFLEX Routine 01/10/2018 11:56 AM EST Hyperlipidemia LDL goal <100 TSH REFLEX TO FT4 Routine 01/10/2018 11:56 AM EST Other specified hypothyroidism COMPREHENSIVE METABOLIC PANEL Routine 01/10/2018 11:56 AM EST Type 2 diabetes mellitus with peripheral neuropathy (HCC) CBC WITH DIFF Routine 01/10/2018 11:56 AM EST Heart failure, unspecified heart failure chronicity, unspecified heart failure type (HCC) HEMOGLOBIN A1C Routine 01/10/2018 11:56 AM EST Type 2 diabetes mellitus with peripheral neuropathy (HCC) LDL, CALCULATED Routine 06/28/2017 9:45 AM EDT T4, FREE (THYROXINE) Routine 06/28/2017 9:45 AM EDT SMEAR REVIEW Routine 06/28/2017 9:45 AM EDT DIFFERENTIAL Routine 06/28/2017 9:45 AM EDT TSH REFLEX TO FT4 Routine 06/28/2017 9:45 AM EDT Other specified hypothyroidism LIPID PANEL REFLEX Routine 06/28/2017 9:45 AM EDT Hyperlipidemia LDL goal <100 HEMOGLOBIN A1C Routine 06/28/2017 9:45 AM EDT Type 2 diabetes mellitus with peripheral neuropathy (HCC) COMPREHENSIVE METABOLIC PANEL Routine 06/28/2017 9:45 AM EDT Type 2 diabetes mellitus with peripheral neuropathy (HCC) CBC WITH DIFF Routine 06/28/2017 9:45 AM EDT Type 2 diabetes mellitus with peripheral neuropathy (HCC) GMED COLONOSCOPY Routine 01/18/2017 12:20 PM EDT GMED COLONOSCOPY Routine 01/18/2017 12:20 PM EDT LDL, CALCULATED Routine 11/10/2016 11:32 AM EST SMEAR REVIEW Routine 11/10/2016 11:32 AM EST DIFFERENTIAL Routine 11/10/2016 11:32 AM EST CBC WITH DIFF Routine 11/10/2016 11:32 AM EST Heart failure, unspecified heart failure chronicity, unspecified heart failure type COMPREHENSIVE METABOLIC PANEL Routine 11/10/2016 11:32 AM EST Type 2 diabetes mellitus with peripheral neuropathy (HCC) HEMOGLOBIN A1C Routine 11/10/2016 11:32 AM EST Type 2 diabetes mellitus with peripheral neuropathy (HCC) LIPID PANEL REFLEX Routine 11/10/2016 11:32 AM EST Hyperlipidemia LDL goal <100 THYROID STIMULATING HORMONE Routine 11/10/2016 11:32 AM EST Other specified hypothyroidism POCT MICROALBUMIN Routine 11/10/2016 11:30 AM EST Type 2 diabetes mellitus with peripheral neuropathy (HCC) POCT GLYCATED HEMOGLOBIN, TOTAL Routine 11/10/2016 10:28 AM EST Type 2 diabetes mellitus with peripheral neuropathy (HCC) MM MAMMO DIGITAL SCREENING W CAD BILAT Routine 10/01/2016 11:45 AM EST Visit for screening mammogram POCT GLYCATED HEMOGLOBIN, TOTAL Routine 03/17/2016 12:31 PM EDT Type 2 diabetes mellitus with peripheral neuropathy (HCC) LDL, CALCULATED Routine 03/17/2016 12:00 PM EDT THYROID STIMULATING HORMONE Routine 03/17/2016 12:00 PM EDT Other specified hypothyroidism LIPID PANEL REFLEX Routine 03/17/2016 12:00 PM EDT Hyperlipidemia LDL goal <100 COMPREHENSIVE METABOLIC PANEL Routine 03/17/2016 12:00 PM EDT Type 2 diabetes mellitus with peripheral neuropathy (HCC) CBC Routine 03/17/2016 12:00 PM EDT Type 2 diabetes mellitus with peripheral neuropathy (HCC) POCT MICROALBUMIN Routine 11/13/2015 1:04 PM EST Type 2 diabetes mellitus with peripheral neuropathy (HCC) POCT GLYCATED HEMOGLOBIN, TOTAL Routine 11/13/2015 1:04 PM EST Type 2 diabetes mellitus with peripheral neuropathy (HCC) POCT GLUCOSE Routine 09/12/2015 5:56 PM EST Type 2 diabetes mellitus with neurological manifestations, uncontrolled (HCC) CBC Routine 09/12/2015 12:19 PM EST Leukocytosis Other fatigue BASIC METABOLIC PANEL Routine 09/12/2015 12:19 PM EST Leukocytosis Other fatigue PROGESTERONE LEVEL Routine 09/12/2015 12:19 PM EST Post-menopausal ESTRADIOL LEVEL Routine 09/12/2015 12:19 PM EST Post-menopausal BASIC METABOLIC PANEL Routine 08/13/2015 5:47 PM EDT Post-operative nausea and vomiting CBC Routine 08/13/2015 5:47 PM EDT Post-operative nausea and vomiting GLUCOSE METER POC Routine 08/02/2015 7:51 AM EDT GLUCOSE METER POC Routine 08/01/2015 9:31 PM EDT GLUCOSE METER POC Routine 08/01/2015 5:53 PM EDT GLUCOSE METER POC Routine 08/01/2015 12:13 PM EDT SCANNED RHYTHM STRIPS 08/01/2015 11:43 AM EDT GLUCOSE METER POC Routine 08/01/2015 7:16 AM EDT DIFFERENTIAL Routine 08/01/2015 4:56 AM EDT BASIC METABOLIC PANEL Routine 08/01/2015 4:56 AM EDT CBC WITH DIFF Routine 08/01/2015 4:56 AM EDT GLUCOSE METER POC Routine 08/01/2015 12:41 AM EDT GLUCOSE METER POC Routine 07/31/2015 6:19 PM EDT CKMB QUANT - REF LAB Routine 07/31/2015 1:56 PM EDT XR CHEST AP PORTABLE STAT 07/31/2015 1:53 PM EDT PLATELET COUNT Timed 07/31/2015 1:47 PM EDT EK EKG 12 LEAD STAT 07/31/2015 1:36 PM EDT GLUCOSE METER POC Routine 07/31/2015 1:30 PM EDT VENTRAL/EPIGASTRIC OR INCISIONAL HERNIA REPAIR WITH MESH 07/31/2015 11:17 AM EDT Ventral hernia without obstruction or gangrene Special Needs LISA CPT; 62723 GLUCOSE METER POC Routine 07/31/2015 10:57 AM EDT POCT URINE Routine 07/31/2015 8:23 AM EDT Pre-operative respiratory examination Ventral hernia, recurrent SCANNED EKG 07/11/2015 12:05 PM EDT T4, FREE (THYROXINE) Routine 07/08/2015 10:56 AM EDT TSH REFLEX TO FT4 Routine 07/08/2015 10:56 AM EDT Diaphoresis POCT GLUCOSE Routine 07/08/2015 10:13 AM EDT Type 2 diabetes mellitus with neurological manifestations, uncontrolled (HCC) TROPONIN-T STAT 07/03/2015 9:[address] ABD PEL ED FAST W CONTRAST STAT 07/03/2015 9:10 PM EDT DIFFERENTIAL STAT 07/03/2015 7:56 PM EDT HCG QUALITATIVE STAT 07/03/2015 7:56 PM EDT HEPATIC FUNCTION PANEL STAT 07/03/2015 7:56 PM EDT TROPONIN-T STAT 07/03/2015 7:56 PM EDT BASIC METABOLIC PANEL STAT 07/03/2015 7:56 PM EDT CBC WITH DIFF STAT 07/03/2015 7:56 PM EDT EK EKG 12 LEAD STAT 07/03/2015 7:50 PM EDT XR CHEST AP PORTABLE EMILIE 07/03/2015 7:50 PM EDT SALINE LOCK IV STAT 07/03/2015 7:44 PM EDT POCT GLUCOSE Routine 07/03/2015 6:38 PM EDT Dizziness POCT GLUCOSE Routine 06/12/2015 6:42 PM EDT Type 2 diabetes mellitus with neurological manifestations, uncontrolled (HCC) POCT GLYCATED HEMOGLOBIN, TOTAL Routine 06/12/2015 6:41 PM EDT Type 2 diabetes mellitus with neurological manifestations, uncontrolled (HCC) [facility] CYTOLOGY REPORT Routine 05/15/2015 9:23 PM EDT HPV HIGH RISK Routine 05/15/2015 11:23 AM EDT Special screening examination for human papillomavirus (HPV) MM MAMMO DIGITAL SCREENING W CAD BILAT Routine 05/07/2015 4:06 PM EDT Other screening mammogram POCT MICROALBUMIN Routine 04/23/2015 1:55 PM EDT Type 2 diabetes mellitus with neurological manifestations, uncontrolled (HCC) THYROID STIMULATING HORMONE Routine 04/23/2015 11:57 AM EDT Other specified hypothyroidism T4, FREE (THYROXINE) Routine 03/17/2015 12:20 PM EDT LDL, CALCULATED Routine 03/17/2015 12:20 PM EDT TSH REFLEX TO FT4 Routine 03/17/2015 12:20 PM EDT Hypothyroidism LIPID PANEL REFLEX Routine 03/17/2015 12:20 PM EDT Hyperlipidemia LDL goal <100 HEMOGLOBIN A1C Routine 03/17/2015 12:20 PM EDT DM (diabetes mellitus) (HCC) COMPREHENSIVE METABOLIC PANEL Routine 03/17/2015 12:20 PM EDT DM (diabetes mellitus) (HCC) T4, FREE (THYROXINE) Routine 12/02/2014 12:02 PM EST LDL, CALCULATED Routine 12/02/2014 12:02 PM EST LIPID PANEL REFLEX Routine 12/02/2014 12:02 PM EST Dyslipidemia TSH REFLEX TO FT4 Routine 12/02/2014 12:02 PM EST Hypothyroidism HEMOGLOBIN A1C Routine 12/02/2014 12:02 PM EST DM (diabetes mellitus) (HCC) POCT URINALYSIS DIPSTICK Routine 12/02/2014 11:00 AM EST Bladder infection POCT URINALYSIS DIPSTICK Routine 09/20/2014 2:50 PM EST UTI (urinary tract infection) POCT URINALYSIS DIPSTICK Routine 09/20/2014 2:01 PM EST UTI (urinary tract infection) T4, FREE (THYROXINE) Routine 09/02/2014 1:16 PM EDT LDL, CALCULATED Routine 09/02/2014 1:16 PM EDT TSH REFLEX TO FT4 Routine 09/02/2014 1:16 PM EDT Hypothyroid LIPID PANEL REFLEX Routine 09/02/2014 1:16 PM EDT Dyslipidemia HEMOGLOBIN A1C Routine 09/02/2014 1:16 PM EDT DM (diabetes mellitus) (HCC) COMPREHENSIVE METABOLIC PANEL Routine 09/02/2014 1:16 PM EDT DM (diabetes mellitus) (HCC) POCT MICROALBUMIN Routine 09/02/2014 9:01 AM EDT DM (diabetes mellitus) (HCC) XR HAND RIGHT PA LATERAL AND OBLIQUE STAT 04/21/2014 2:13 PM EDT Right hand pain GLUCOSE METER POC Routine 04/20/2014 1:05 AM EDT URINALYSIS Routine 12/19/2013 4:13 PM EST DIFFERENTIAL STAT 12/19/2013 2:45 PM EST BETA HCG QUALITATIVE KIT TEST, URINE STAT 12/19/2013 2:45 PM EST BASIC METABOLIC PANEL STAT 12/19/2013 2:45 PM EST CBC WITH DIFF STAT 12/19/2013 2:45 PM EST SALINE LOCK IV STAT 12/19/2013 2:32 PM EST MRI LUMBAR SPINE WO CONTRAST Routine 11/16/2013 3:44 PM EST Back pain SCANNED PRE/POST PROCEDURES 10/24/2013 4:32 PM EST SCANNED ANESTHESIA FORMS 10/24/2013 4:32 PM EST SCANNED LABS 10/24/2013 4:32 PM EST GLUCOSE METER POC Routine 10/22/2013 8:16 AM EST POCT URINE Routine 10/22/2013 7:53 AM EST DIFFERENTIAL Routine 10/19/2013 9:40 AM EST CBC WITH DIFF Routine 10/19/2013 9:40 AM EST EK EKG 12 LEAD Routine 10/19/2013 9:[address] ABDOMEN PELVIS WO ORAL OR IV CONTRAST STAT 10/08/2013 1:00 AM EST DIFFERENTIAL STAT 10/08/2013 12:05 AM EST HCG SERUM QUALITATIVE STAT 10/08/2013 12:05 AM EST LIPASE LEVEL STAT 10/08/2013 12:05 AM EST COMPREHENSIVE METABOLIC PANEL STAT 10/08/2013 12:05 AM EST CBC WITH DIFF STAT 10/08/2013 12:05 AM EST SCANNED RADIOLOGY REPORT 04/27/2013 2:25 PM EDT NM MYOCARDIAL PERFUSION SPECT STRESS AND REST Routine 04/17/2013 12:15 PM EDT Chest pain Unspecified essential hypertension Other and unspecified hyperlipidemia Type II or unspecified type diabetes mellitus without mention of complication, not stated as uncontrolled (HCC) SCANNED RADIOLOGY REPORT 04/17/2013 8:[address] STRESS TEST PHARMACOLOGICAL Routine 04/16/2013 9:10 AM EDT Chest pain Unspecified essential hypertension Other and unspecified hyperlipidemia Type II or unspecified type diabetes mellitus without mention of complication, not stated as uncontrolled (HCC) XR KNEE LEFT AP LATERAL AND AXIAL Routine 03/26/2013 2:03 PM EDT Pain XR KNEE RIGHT AP LATERAL AND AXIAL Routine 03/26/2013 2:03 PM EDT Pain XR CHEST PA AND LATERAL EMILIE 01/17/2013 5:18 PM EDT URINALYSIS POC Routine 01/17/2013 5:02 PM EDT DIFFERENTIAL STAT 01/17/2013 4:40 PM EDT LIPASE LEVEL STAT 01/17/2013 4:40 PM EDT COMPREHENSIVE METABOLIC PANEL STAT 01/17/2013 4:40 PM EDT CBC WITH DIFF STAT 01/17/2013 4:40 PM EDT XR ANKLE RIGHT AP LATERAL AND OBLIQUE EMILIE 12/09/2012 6:15 PM EST URINALYSIS STAT 11/15/2012 6:46 PM EST POCT URINALYSIS DIPSTICK Routine 11/15/2012 6:43 PM EST .CHL/GC GENITAL RESULTS STAT 11/15/2012 6:31 PM EST GRAM STAIN (STAIN ONLY) STAT 11/15/2012 6:31 PM EST TRICHOMONAS AG Routine 11/15/2012 6:31 PM EST BETA HCG QUALITATIVE KIT TEST, URINE STAT 11/15/2012 5:43 PM EST DIFFERENTIAL STAT 11/15/2012 5:22 PM EST BASIC METABOLIC PANEL STAT 11/15/2012 5:22 PM EST CBC WITH DIFF STAT 11/15/2012 5:22 PM EST XR CHEST PA AND LATERAL EMILIE 11/06/2012 10:07 PM EST POCT URINALYSIS DIPSTICK Routine 11/06/2012 10:03 PM EST US PELVIS NON OB COMPLETE Routine 10/10/2012 12:49 PM EST Pelvic pain Vaginal bleeding .CHL/GC GENITAL RESULTS STAT 09/20/2012 11:00 PM EST TRICHOMONAS AG STAT 09/20/2012 11:00 PM EST GRAM STAIN (STAIN ONLY) STAT 09/20/2012 10:55 PM EST POCT URINALYSIS DIPSTICK STAT 09/20/2012 10:37 PM EST LDL, CALCULATED Routine 04/27/2012 10:35 AM EDT THYROID STIMULATING HORMONE Routine 04/27/2012 10:35 AM EDT DM (diabetes mellitus) (HCC) LIPID PANEL REFLEX Routine 04/27/2012 10:35 AM EDT DM (diabetes mellitus) (HCC) COMPREHENSIVE METABOLIC PANEL Routine 04/27/2012 10:35 AM EDT DM (diabetes mellitus) (HCC) CBC Routine 04/27/2012 10:35 AM EDT DM (diabetes mellitus) (HCC) POCT URINALYSIS DIPSTICK STAT 03/21/2012 12:33 PM EDT XR LUMBAR SPINE AP AND LATERAL Routine 10/11/2011 1:43 PM EST Pain MRI PELVIS W WO CONTRAST Routine 09/20/2011 12:56 PM EST Leiomyoma of uterus, unspecified EK EKG 12 LEAD Routine 08/28/2011 7:[address] ANGIOGRAM CORONARY W CONTRAST EMILIE 08/27/2011 6:01 PM EDT TROPONIN-I Timed 08/27/2011 9:19 AM EDT EK EKG 12 LEAD Routine 08/27/2011 7:39 AM EDT CREATININE Routine 08/27/2011 2:44 AM EDT LIPID SCREEN Routine 08/27/2011 2:44 AM EDT THYROID STIMULATING HORMONE Timed 08/27/2011 2:44 AM EDT MAGNESIUM LEVEL Timed 08/27/2011 2:44 AM EDT TROPONIN-I Timed 08/27/2011 2:44 AM EDT HEPATIC FUNCTION PANEL Timed 08/27/2011 2:44 AM EDT PARTIAL THROMBOPLASTIN TIME Timed 08/27/2011 2:44 AM EDT PT / INR Timed 08/27/2011 2:44 AM EDT XR CHEST AP PORTABLE EMILIE 08/26/2011 10:36 PM EDT DIFFERENTIAL STAT 08/26/2011 7:57 PM EDT TROPONIN-I STAT 08/26/2011 7:57 PM EDT BASIC METABOLIC PANEL STAT 08/26/2011 7:57 PM EDT CBC WITH DIFF STAT 08/26/2011 7:57 PM EDT EK EKG 12 LEAD STAT 08/26/2011 6:33 PM EDT US GALLBLADDER Routine 08/02/2011 11:43 AM EDT Abdominal pain, other specified site Chest pressure NM MYOCARDIAL PERFUSION SPECT STRESS AND REST EMILIE 07/31/2011 9:[address] STRESS TEST EXERCISE Routine 07/30/2011 8:38 AM EDT EK EKG 12 LEAD Early AM 07/30/2011 6:37 AM EDT T4, FREE (THYROXINE) Routine 07/30/2011 6:23 AM EDT DIFFERENTIAL Routine 07/30/2011 6:23 AM EDT BASIC METABOLIC PANEL Routine 07/30/2011 6:23 AM EDT CBC WITH DIFF Routine 07/30/2011 6:23 AM EDT SCANNED RADIOLOGY REPORT 07/30/2011 12:00 AM EDT CKMB QUANT - REF LAB Timed 07/29/2011 3:09 PM EDT TROPONIN-I Timed 07/29/2011 11:52 AM EDT URINALYSIS Routine 07/29/2011 10:10 AM EDT EK EKG 12 LEAD Early AM 07/29/2011 8:01 AM EDT HCG SERUM QUALITATIVE EMILIE 07/29/2011 6:25 AM EDT COMPREHENSIVE METABOLIC PANEL Routine 07/29/2011 6:25 AM EDT CBC Routine 07/29/2011 6:25 AM EDT CKMB QUANT - REF LAB Timed 07/29/2011 6:25 AM EDT THYROID STIMULATING HORMONE Timed 07/29/2011 6:14 AM EDT MAGNESIUM LEVEL Timed 07/29/2011 6:14 AM EDT LIPID SCREEN Routine 07/29/2011 6:14 AM EDT TROPONIN-I Timed 07/29/2011 6:14 AM EDT HEPATIC FUNCTION PANEL Timed 07/29/2011 6:14 AM EDT PARTIAL THROMBOPLASTIN TIME Timed 07/29/2011 6:14 AM EDT DIFFERENTIAL STAT 07/28/2011 11:55 PM EDT TROPONIN-I STAT 07/28/2011 11:55 PM EDT BASIC METABOLIC PANEL STAT 07/28/2011 11:55 PM EDT PT / INR STAT 07/28/2011 11:55 PM EDT CBC WITH DIFF STAT 07/28/2011 11:55 PM EDT XR CHEST AP PORTABLE STAT 07/28/2011 11:37 PM EDT EK EKG 12 LEAD STAT 07/28/2011 11:31 PM EDT SALINE LOCK IV STAT 07/28/2011 11:27 PM EDT IR ULTRASOUND GUIDED VASCULAR ACCESS Routine 06/14/2011 11:33 AM EDT Fibroid, uterine IR UTERINE FIBROID EMBOLIZATION Routine 06/14/2011 11:33 AM EDT Fibroid, uterine POCT GLUCOSE Routine 06/14/2011 7:22 AM EDT POCT URINE Routine 06/14/2011 7:07 AM EDT HCG SERUM QUALITATIVE Routine 06/11/2011 1:24 PM EDT Uterine fibroid PT / INR Routine 06/11/2011 1:24 PM EDT Uterine fibroid FOLLICLE STIMULATING HORMONE LEVEL Routine 06/11/2011 1:24 PM EDT Uterine fibroid CREATININE Routine 06/11/2011 1:24 PM EDT Uterine fibroid CBC Routine 06/11/2011 1:24 PM EDT Uterine fibroid POCT URINE STAT 05/31/2011 1:50 PM EDT POCT URINALYSIS DIPSTICK STAT 05/31/2011 1:49 PM EDT MRI PELVIS W WO CONTRAST Routine 04/20/2011 4:18 PM EDT Pelvic pain in female Fibroids MM MAMMO DIGITAL SCREENING W CAD BILAT Routine 04/20/2011 2:13 PM EDT Other screening mammogram BASIC METABOLIC PANEL Routine 03/12/2011 6:07 AM EDT CBC Routine 03/12/2011 6:07 AM EDT BASIC METABOLIC PANEL Routine 03/11/2011 5:30 AM EDT CBC Routine 03/11/2011 5:30 AM EDT BASIC METABOLIC PANEL Routine 03/10/2011 9:44 AM EDT CBC Routine 03/10/2011 9:44 AM EDT EK EKG 12 LEAD STAT 03/09/2011 6:13 AM EDT XR CHEST PA AND LATERAL EMILIE 03/09/2011 2:38 AM EDT THYROID STIMULATING HORMONE Routine 03/09/2011 1:19 AM EDT SMEAR REVIEW STAT 03/09/2011 1:19 AM EDT DIFFERENTIAL STAT 03/09/2011 1:19 AM EDT COMPREHENSIVE METABOLIC PANEL STAT 03/09/2011 1:19 AM EDT CBC WITH DIFF STAT 03/09/2011 1:19 AM EDT BLOOD CULTURE (NO STAIN) STAT 03/09/2011 1:19 AM EDT BLOOD CULTURE (NO STAIN) STAT 03/09/2011 1:19 AM EDT URINALYSIS STAT 03/09/2011 1:15 AM EDT URINE CULTURE (NO STAIN) STAT 03/09/2011 1:15 AM EDT SCANNED EKG 03/09/2011 12:00 AM EDT SCANNED RADIOLOGY REPORT 09/05/2010 12:00 AM EDT SCANNED RADIOLOGY REPORT 09/05/2010 12:00 AM EDT SCANNED RADIOLOGY REPORT 08/31/2010 12:00 AM EDT SCANNED RADIOLOGY REPORT 08/31/2010 12:00 AM EDT SCANNED LABS 08/29/2010 12:00 AM EDT SCANNED LABS 08/19/2010 12:00 AM EDT SCANNED LABS 08/19/2010 12:00 AM EDT SCANNED PATHOLOGY REPORT 08/18/2010 12:00 AM EDT SCANNED LABS 08/18/2010 12:00 AM EDT SCANNED ANESTHESIA FORMS 08/18/2010 12:00 AM EDT SCANNED PRE/POST PROCEDURES 08/18/2010 12:00 AM EDT SCANNED OR REPORT 06/21/2010 12:00 AM EDT XX LOWER LEG TIBIA/FIBULA Routine 06/04/2010 3:21 PM EDT SCANNED RADIOLOGY REPORT 06/04/2010 12:00 AM EDT SCANNED RADIOLOGY REPORT 06/04/2010 12:00 AM EDT MR LUMBAR SPINE W/O CONT Routine 06/01/2010 9:16 AM EDT SCANNED RADIOLOGY REPORT 06/01/2010 12:00 AM EDT SCANNED OR REPORT 05/27/2010 12:00 AM EDT SCANNED OR REPORT 05/26/2010 12:00 AM EDT BASIC METABOLIC PANEL STAT 04/22/2010 4:55 PM EDT DIFFERENTIAL STAT 04/22/2010 4:55 PM EDT CBC WITH DIFF STAT 04/22/2010 4:55 PM EDT PATHOLOGY TISSUE REPORT Routine 04/20/2010 4:00 PM EDT HCG SERUM QUALITATIVE Routine 04/17/2010 9:27 PM EDT BASIC METABOLIC PANEL Routine 04/17/2010 1:35 PM EDT DIFFERENTIAL Routine 04/17/2010 1:35 PM EDT CBC WITH DIFF Routine 04/17/2010 1:35 PM EDT URINALYSIS STAT 03/31/2010 2:00 PM EDT BASIC METABOLIC PANEL STAT 03/31/2010 12:17 PM EDT DIFFERENTIAL STAT 03/31/2010 12:17 PM EDT CBC WITH DIFF STAT 03/31/2010 12:[address] ABD/PELVIS GOLD LETTERER Routine 03/19/2010 11:35 AM EDT VA ARTERIAL LOWER Routine 03/19/2010 10:20 AM EDT NM LIVER SPLEEN Routine 02/27/2010 9:54 AM EDT VA LOWER EXT VENOUS UNILAT Routine 02/26/2010 2:15 PM EDT PATHOLOGY TISSUE REPORT Routine 12/25/2009 11:53 AM EST EK EKG REG Routine 12/24/2009 1:00 PM EST HCG SERUM QUALITATIVE Routine 12/24/2009 10:06 AM EST BASIC METABOLIC PANEL Routine 12/24/2009 10:06 AM EST DIFFERENTIAL Routine 12/24/2009 10:06 AM EST CBC WITH DIFF Routine 12/24/2009 10:06 AM EST MM DIG DIAG SABAS PANEL W/CAD Routine 12/08/2009 12:28 PM EST US PELVIC MASS SONOGRAPHY Routine 11/01/2009 11:08 AM EST XX ABDOMEN Routine 11/01/2009 1:[address] ABD/PELVIS GOLD LETTERER Routine 10/30/2009 9:50 PM EST XX CHEST PA & LATERAL Routine 10/21/2009 2:24 PM EST XX BILAT KNEE 3 VIEWS Routine 08/29/2009 10:[address] ABD/PELVIS GOLD LETTERER Routine 06/20/2009 12:40 PM EDT US LIVER-HEPATIC SONOGRAPHY Routine 04/02/2009 2:40 PM EDT XX LUMBOSACRAL SPINE Routine 03/13/2009 10:40 AM EDT XX CHEST PA & LATERAL Routine 03/13/2009 10:[address] ABD/PELVIS GOLD LETTERER Routine 08/27/2008 3:45 AM EDT EK EKG REG Routine 08/19/2008 2:09 PM EDT XX BILAT KNEE 3 VIEWS Routine 08/19/2008 1:04 PM EDT XX LUMBOSACRAL SPINE Routine 08/19/2008 1:04 PM EDT XX CHEST PA & LATERAL Routine 05/13/2008 3:17 PM EDT EK EKG REG Routine 05/13/2008 1:14 PM EDT XX FINGER(S) Routine 08/12/2007 7:54 PM EDT Results * MICROALBUMIN/CREATININE RATIO URINE (06/04/2025 11:24 AM EDT) Only the most recent of2 resultswithin the time period is included. Urine Microalb <12.0 mg/L 06/05/2025 2:38 AM EDT [facility], [facility] Urine Creatinine 158.0 mg/dL 06/05/20 25 2:38 AM EDT [facility], [facility] Ur Microalb/Creat 025 2:38 AM EDT [facility] Comment: Because the albumin level is below the level of detection in this urine specimen, the laboratory is unable to calculate a reliable albumin/creatinine ratio. Microalbuminuria is unlikely if the urine albumin concentration is less than 20- 30 mg/L in a random specimen. Urine STRUCTURE OF URINARY TRACT PROPER / Unknown 06/04/2025 11:24 AM EDT 06/04/2025 11:24 AM EDT us Malinda Patterson MD URINE ORDERABLES Final Result [facility], [facility] [address] [facility] , [place] [address] [facility] [address] [place] [id number] * (ABNORMAL) POCT GLYCATED HEMOGLOBIN, TOTAL (06/04/2025 11:23 AM EDT) Only the most recent of14 resultswithin the time period is included. Hemoglobin A1C 7.4(A) 4 - 6 % SEP OFFICE Lot Number [id number] SEP OFFICE Expiration Date 02/07/2027 SEP OFFICE SeriAl # SEP OFFICE 06/04/2025 11:2 3 AM EDT Malinda Patterson MD POINT OF CARE TEST JUANITO CORDERO Final Result SEP OFFICE * IRIS DIABETIC RETINOPATHY EXAM (06/04/2025 11:18 AM EDT) Retinopathy Exam Severity NORMAL [facility] Right Diabetic Retinopathy None [facility] Right Macular Edema None [facility] Right Other Retina None [facility] Right Eye Image Quality Gradable Image [facility] Left Diabetic Retinopathy None [facility] Left Macular Edema None [facility] Left Other Retina None [facility] Left Eye Image Quality Gradable Image [facility] 06/04/2025 11:1 8 AM EDT 06/04/2025 11:18 AM EDT Impressions [facility] - 06/04/2025 11:34 AM EDT Retinal Study Result for KRISTIN ESPINOZA, a 54 y/o, F (: 1970, ) presented to [facility] on 06-04-2025 for a retinal imaging study of the left and right eyes. 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 NOTE: Any pathology noted on this diabetic retinal evaluation should be confirmed by an appropriate ophthalmic examination. Malinda Patterson MD OPHTHALMOLOGY SERVICES ORDERABLES Final Result [facility] [address] [id number] * (ABNORMAL) CBC (04/10/2025 11:00 AM EDT) Only the most recent of15 resultswithin the time period is included. WBC 9.8 3.7 - 10.3 x10(3)/mcL 04/10/2025 11:14 AM EDT [facility] RBC 4.64 3.90 - 5.20 x10(6)/[facility] 04/10/2025 11:14 AM EDT [facility] Hgb 12.4 11.2 - 15.7 g/dL 04/10/2025 11:14 AM EDT [facility] Hct 40.6 34.0 - 45.0 % 04/10/2025 11:14 AM EDT [facility] MCV 87.5 80.0 - 100.0 fL 04/10/2025 11:14 AM EDT [facility] MCH 26.7 26.0 - 34.0 pg 04/10/2025 11:14 AM EDT [facility] MCHC 30.5(L) 30.7 - 35.5 g/dL 04/10/2025 11:14 AM EDT [facility] RDW 16.6(H) <=14.9 % 04/10/2025 11:14 AM EDT [facility] Platelet 318 155 - 369 x10(3)/mcL 04/10/2025 11:14 AM EDT [facility] MPV 11.4 8.8 - 12.5 fL 04/10/2025 11:14 AM EDT [facility] Blood VENOUS BLOOD / Unknown Venipuncture / Unknown 04/10/2025 11:00 AM EDT 04/10/2025 11:09 AM EDT us Iwona Jamison BONE CHAR OPERATOR HEMATOLOGY ORDERABLES Final Result [facility] [address] [place] [address] * (ABNORMAL) BASIC METABOLIC PANEL (04/10/2025 11:00 AM EDT) Only the most recent of28 resultswithin the time period is included. Sodium 136 136 - 145 mmol/L 04/10/2025 11:22 AM EDT [facility] Potassium 5.2(H) 3.5 - 5.0 mmol/L 04/10/2025 11:22 AM EDT [facility] Chloride 101 98 - 107 mmol/L 04/10/2025 11:22 AM EDT [facility] Total CO2 26 22 - 29 mmol/L 04/10/2025 11:22 AM EDT [facility] Anion Gap 9 7 - 16 mmol/L 04/10/2025 11:22 AM EDT [facility] Calcium 9.3 8.6 - 10.4 mg/dL 04/10/2025 11:22 AM EDT [facility] Glucose Lvl 127(H) 70 - 99 mg/dL 04/10/2025 11:22 AM EDT [facility] BUN 14 6 - 20 mg/dL 04/10/2025 11:22 AM EDT [facility] Creatinine 0.77 0.51 - 1.30 mg/dL 04/10/2025 11:22 AM EDT [facility] eGFR (CKD-EPIcr 2020) 91 >=60 mL/min/1.7 3 m2 04/10/2025 11:22 AM EDT [facility] Comment:Estimated GFR was ca lculated using the CKD-EPIcr (2020) equation refit without race. The equation is recommended by the [employer] Kid[employer] - [place] [employer] of Nephrology Task Force. Blood VENOUS BLOOD / Unknown Venipuncture / Unknown 04/10/2025 11:00 AM EDT 04/10/2025 11:08 AM EDT us Iwona Jamison BONE CHAR OPERATOR CHEMISTRY ORDERABLES Final R esult Performing Organization Address [facility]/ZIP Co de Phone Number [facility] [address] [place] [address] * (ABNORMAL) GLUCOSE METER POC (04/10/2025 10:24 AM EDT) Only the most recent of49 resultswithin the time period is included. [facility] Glucose Meter POC 164(H) 70 - 100 mg/dL 04/10/2025 10:26 AM EDT [facility] Sample Type Capillary 04/10/2025 10:26 AM EDT [facility] Patient Status Non-Critical Patient 04/10/2025 10:26 AM EDT [facility] Blood BLOOD SPECIMEN / Unknown 04/10/2025 10:24 AM EDT 04/10/2025 10:26 AM EDT us Lab Test POINT OF CARE TEST ORDERABLES Fi nal Result Performing Organization Address [facility]/ZIP Co de Phone Number [facility] [address] [place] [address] * SCANNED EKG (03/07/2025 2:20 PM EDT) Only the most recent of10 resultswithin the time period is included. Anatomical Region Laterality Modality Other 03/07/2025 2:20 PM EDT us Unknown Provider IMG ECG ORDERABLES Final Result * CT ABD PEL ED FAST W CONTRAST (03/07/2025 2:43 AM EDT) Only the most recent of4 resultswithin the time period is included. Anatomical Region Laterality Modality Abdomen, Pelvis Computed Tomogra phy 03/07/2025 2:43 AM EDT Impressions 03/07/2025 2:51 AM EDT No acute inflammatory changes within abdomen pelvis. Hepatic steatosis. - Note: Radiology results need to be interpreted within a comprehensive clinical context. If you have questions about the radiology report, please contact the office of the ordering clinician. Narrative 03/07/2025 2:[address] ABDOMEN AND PELVIS WITH CONTRAST (FAST), 03/07/2025 2:43 AM CLINICAL HISTORY: -Abdominal pain.. COMPARISON: 10/15/2024 PROCEDURE COMMENTS: Multi-detector CT scanning of the abdomen and pelvis with multiplanar reformatting per expedited protocol. Isovue 370 IV contrast given as recorded in EPIC. Dose 1 : CT DLP Total : 1770.78 mGycm DLP Spiral Max : 1768.7 mGycm Maximum CTDI Vol : 31.83 mGy FINDINGS: LOWER THORAX: Lung bases clear. Stable right hemidiaphragm elevation. ABDOMEN AND PELVIS: Cholecystectomy. Bilateral renal cysts. Adrenals, spleen, pancreas unremarkable. Hepatic steatosis. Normal-appearing small bowel. No abnormal colon thickening. No abnormal mass, fluid, or adenopathy in the pelvis. No acute osseous abnormality. Procedure Note Gilberto Hunter MD - 03/07/2025 CT ABDOMEN AND PELVIS WITH CONTRAST (FAST), 03/07/2025 2:43 AM CLINICAL HISTORY: -Abdominal pain.. COMPARISON: 10/15/2024 PROCEDURE COMMENTS: Multi-detector CT scanning of the abdomen and pelviswith multiplanar reformatting per expedited protocol. Isovue 370 IV contrastgiven as recorded in EPIC. Dose 1 : CT DLP Total : 1770.78 mGycm DLP Spiral Max : 1768.7 mGycm Maximum CTDI Vol : 31.83 mGy FINDINGS: LOWER THORAX: Lung bases clear. Stable right hemidiaphragm elevation. ABDOMEN AND PELVIS: Cholecystectomy. Bilateral renal cysts. Adrenals,spleen, pancreas unremarkable. Hepatic steatosis. Normal-appearing small bowel. No abnormal colon thickening. No abnormal mass, fluid, or adenopathy in the pelvis. No acute osseous abnormality. IMPRESSION: No acute inflammatory changes within abdomen pelvis. Hepatic steatosis. - Note: Radiology results need to be interpreted within a comprehensiveclinical context. If you have questions about the radiology report, please contactthe office of the ordering clinician. us Ly Hernández MD IM CT ORDERABLES Final Resu lt * TROPONIN-T HIGH SENSITIVITY BASELINE W/ REFLEX (03/07/2025 2:00 AM EDT) Only the most recent of8 resultswithin the time period is included. qx-yDptdudxm-U 7 <14 ng/L 03/07/2025 2:30 AM EDT [facility] Blood VENOUS BLOOD / Unknown Venipuncture / Unknown 03/07/2025 2:00 AM EDT 03/07/2025 2:05 AM EDT Narrative [facility] - 03/07/2025 2:30 AM EDT Ingestion of tabatha doses of biotin (>5 mg/day) taken within 8 hours of drawing blood sample can interfere with this immunoassay test. us Ly Hernández MD CHEMISTRY ORDERABLES Final R esult [facility] [address] [facility], [place] [address] * (ABNORMAL) CBC WITH DIFF (03/07/2025 2:00 AM EDT) Only the most recent of33 resultswithin the time period is included. WBC 12.6(H) 3.7 - 10.3 x10(3)/mcL 03/07/2025 2:08 AM EDT [facility] RBC 4.92 3.90 - 5.20 x10(6)/mcL 03/07/2025 2:08 AM EDT [facility] Hgb 12.9 11.2 - 15.7 g/dL 03/07/2025 2:08 AM EDT [facility] Hct 42.5 34.0 - 45.0 % 03/07/2025 2:08 AM EDT [facility] MCV 86.4 80.0 - 100.0 fL 03/07/2025 2:08 AM EDT [facility] MCH 26.2 26.0 - 34.0 pg 03/07/2025 2:08 AM EDT [facility] MCHC 30.4(L) 30.7 - 35.5 g/dL 03/07/2025 2:08 AM EDT [facility] RDW 15.6(H) <=14.9 % 03/07/2025 2:08 AM EDT [facility] Platelet 320 155 - 369 x10(3)/[facility] 03/07/2025 2:08 AM EDT [facility] MPV 12.1 8.8 - 12.5 fL 03/07/2025 2:08 AM EDT [facility] Neut Percent 62.5 % 03/07/2025 2:08 AM EDT [facility] Comment:Neutrophils equals s egs plus bands Imm Gran% 0.2 % 03/07/2025 2:08 AM EDT [facility] Comment:Automated count of m etamyelocytes, myelocytes and promyelocytes. Lymph Percent 29.0 % 03/07/2025 2:08 AM EDT [facility] [place] Percent 6.1 % 03/07/2025 2:08 AM EDT [facility] Eos Percent 1.7 % 03/07/2025 2:08 AM EDT [facility] Baso Percent 0.5 % 03/07/2025 2:08 AM EDT [facility] Neut # 7.9(H) 1.6 - 6.1 x10(3)/[facility] 03/07/2025 2:08 AM EDT [facility] Comment:Neutrophils equals s egs plus bands IMMGRAN# 0.0 0.0 - 0.1 x10(3)/[facility] 03/07/2025 2:08 AM EDT [facility] Comment:Automated count of m etamyelocytes, myelocytes and promyelocytes. An absolute IG <0.1 is reported as 0.0. Lymph # 3.7 1.2 - 3.9 x10(3)/mcL 03/07/2025 2:08 AM EDT [facility] [place] # 0.8 0.3 - 0.9 x10(3)/[facility] 03/07/2025 2:08 AM EDT [facility] Eos# 0.2 0.0 - 0.5 x10(3)/[facility] 03/07/2025 2:08 AM EDT [facility] Baso # 0.1 0.0 - 0.1 x10(3)/[facility] 03/07/2025 2:08 AM EDT [facility] Blood VENOUS BLOOD / Unknown Venipuncture / Unknown 03/07/2025 2:00 AM EDT 03/07/2025 2:05 AM EDT us Ly Hernández MD HEMATOLOGY ORDERABLES Final Result [facility] [address] [facility] , [place] [address] * (ABNORMAL) COMPREHENSIVE METABOLIC PANEL (03/07/2025 2:00 AM EDT) Only the most recent of25 resultswithin the time period is included. Sodium 141 136 - 145 mmol/L 03/07/2025 2:30 AM EDT [facility] Potassium 5.0 3.5 - 5.0 mmol/L 03/07/2025 2:30 AM EDT [facility] Chloride 105 98 - 107 mmol/L 03/07/2025 2:30 AM EDT [facility] Total CO2 23 22 - 29 mmol/L 03/07/2025 2:30 AM EDT [facility] Anion Gap 13 7 - 16 mmol/L 03/07/2025 2:30 AM EDT [facility] Calcium 10.0 8.6 - 10.4 mg/dL 03/07/2025 2:30 AM EDT [facility] Glucose Lvl 233(H) 70 - 99 mg/dL 03/07/2025 2:30 AM EDT [facility] BUN 17 6 - 20 mg/dL 03/07/2025 2:30 AM EDT [facility] Creatinine 0.80 0.51 - 1.30 mg/dL 03/07/2025 2:30 AM EDT [facility] Albumin 4.1 3.5 - 5.2 gm/dL 03/07/2025 2:30 AM EDT [facility] Total Protein 7.6 6.4 - 8.3 gm/dL 03/07/2025 2:30 AM EDT [facility] Bili Total 0.6 0.2 - 1.3 mg/dL 03/07/2025 2:30 AM EDT [facility] [employer] [facility] ALT 28 <=41 U/L 03/07/2025 2:30 AM EDT [facility] [employer] [facility] [facility] AST 17 <=40 U/L 03/07/2025 2:30 AM EDT [facility] [employer] [facility] Alk Phos 112 36 - 123 U/L 03/07/2025 2:30 AM EDT [facility] eGFR (CKD-EPIcr 2020) 87 >=60 mL/min/1.7 3 m2 03/07/2025 2:30 AM EDT [facility] Comment:Estimated GFR was ca lculated using the CKD-EPIcr (2020) equation refit without race. The equation is recommended by the National Kidney Foundation - [place] Society of Nephrology Task Force. Blood VENOUS BLOOD / Unknown Venipuncture / Unknown 03/07/2025 2:00 AM EDT 03/07/2025 2:05 AM EDT us Ly Hernández MD CHEMISTRY ORDERABLES Final R esult [facility] [address] [facility] , [place] [address] * EK EKG 12 LEAD (03/07/2025 1:16 AM EDT) Only the most recent of21 resultswithin the time period is included. 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: : 1970 Requested By: LY Pennington Order Number: [id number] Reading MD: Fred Irvin MD Measurements Intervals [place] Rate: 74 P: 48 GA: 173 QRS: 37 QRSD: 89 T: 52 QT: 395 QTc: 439 Interpretive Statements SINUS RHYTHM POSSIBLE LEFT ATRIAL ENLARGEMENT LOW QRS VOLTAGE IN PRECORDIAL LEADS NONSPECIFIC T-WAVE ABNORMALITY Electronically Signed On 03-07-2025 10:44:13 EDT by Fred Irvin MD Narrative Procedure Note Fred Irvin MD - 03/07/2025 [facility] Test Date: 2025-03-07 Pat Name: KRISTIN ESPINOZA Department: DEPID Room: 08 Gender: Female 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 Pathologist [facility] Medications Expected Gabapentin 02/07 8:07 PM EDT [facility] Barbiturates Absent Cutoff 200 ng/mL 03/06/2025 8:07 PM EDT [facility] THC <10 Cutoff 10 ng/mL ng/mL 03/06/2025 8:07 PM EDT [facility] Comment:1-fatrmby-mszfyammxj cannabinol; does not distinguish between prescribed and illicit forms THC Glucuronide <10 Cutoff 10 ng/mL ng/mL 03/06/2025 8:07 PM EDT [facility] Comment:Metabolite of THC Amphetamine <50 Cutoff 50 ng/mL ng/mL 03/06/2025 8:07 PM EDT [facility] Comment:e.g., Adderall, Vyva nse, Dexedrine, Obetrol MDA <50 Cutoff 50 ng/mL ng/mL 03/06/2025 8:07 PM EDT [facility] Comment:Metabolite of MDMA, and MDEA MDEA <50 Cutoff 50 ng/mL ng/mL 03/06/2025 8:07 PM EDT [facility] Comment:e.g., Ruthie MDMA <50 Cutoff 50 ng/mL ng/mL 03/06/2025 8:07 PM EDT [facility] Comment:e.g., Ecstasy, Elaine Methamphetamine <50 Cutoff 50 ng/mL ng/mL 03/06/2025 8:07 PM EDT [facility] Comment:d- and l- isomers ar e not distinguished by this test; may reflect Sharif's inhaler, Desoxyn, Selegiline, or illicit source Phentermine <50 Cutoff 50 ng/mL ng/mL 03/06/2025 8:07 PM EDT [facility] Comment:e.g., Adipex, Lomair a, Ionamin,Fastin,Zantryl Gabapentin >2,000(H) Cutoff 50 ng/mL ng/mL 03/06/2025 8:07 PM EDT [facility] Comment:e.g, Neurontin Pregabalin <50 Cutoff 50 ng/mL ng/mL 03/06/2025 8:07 PM EDT [facility] Comment:Lyrica Alprazolam <8 Cutoff 8 ng/mL ng/mL 03/06/2025 8:07 PM EDT [facility] Comment:e.g, Xanax, Niravam alpha-Hydroxyalprazolam <25 Cutoff 25 ng/mL ng/mL 03/06/2025 8:07 PM EDT [facility] Comment:Metabolite of Alpraz olam Clonazepam <10 Cutoff 10 ng/mL ng/mL 03/06/2025 8:07 PM EDT [facility] Comment:e.g., Klonopin, Clon opin 7-Aminoclonazepam <25 Cutoff 25 ng/mL ng/mL 03/06/2025 8:07 PM EDT [facility] Comment:Metabolite of Clonaz epam Diazepam <10 Cutoff 10 ng/mL ng/mL 03/06/2025 8:07 PM EDT [facility] Comment:e.g, Valium, Diastat Nordiazepam <25 Cutoff 25 ng/mL ng/mL 03/06/2025 8:07 PM EDT [facility] Comment:Metabolite of Chlord iazepoxide(Librium), Clorazepate(Tranxene), Diazepam, Halazepam, (Alapryl), Prazepam(Centrax) Flunitrazepam <50 Cutoff 50 ng/mL ng/mL 03/06/2025 8:07 PM EDT [facility] Comment:e.g.,Rohypnol, Narco zep 7-Aminoflunitrazepam <50 Cutoff 50 ng/mL ng/mL 03/06/2025 8:07 PM EDT [facility] Comment:Metabolite of Flunit razepam Flurazepam <50 Cutoff 50 ng/mL ng/mL 03/06/2025 8:07 PM EDT [facility] Comment:e.g., Dalmane Hydroxyethylflurazepam <50 Cutoff 50 ng/mL ng/mL 03/06/2025 8:07 PM EDT [facility] Comment:Metabolite of Fluraz epam Lorazepam <50 Cutoff 50 ng/mL ng/mL 03/06/2025 8:07 PM EDT [facility] Comment:e.g., Ativan Lorazepam Glucuronide <50 Cutoff 50 ng/mL ng/mL 03/06/2025 8:07 PM EDT [facility] Comment:Metabolite of Loraze swathi Midazolam <50 Cutoff 50 ng/mL ng/mL 03/06/2025 8:07 PM EDT [facility] Comment:e.g., Versed alpha-hydroxymidazolam <50 Cutoff 50 ng/mL ng/mL 03/06/2025 8:07 PM EDT [facility] Comment:Metabolite of Versed Oxazepam <50 Cutoff 50 ng/mL ng/mL 03/06/2025 8:07 PM EDT [facility] Comment:e.g., Serax; also Me tabolite of Temazepam, and Nordiazepam Oxazepam Glucuronide <50 Cutoff 50 ng/mL ng/mL 03/06/2025 8:07 PM EDT [facility] Comment:Metabolite of Oxazep am Temazepam <50 Cutoff 50 ng/mL ng/mL 03/06/2025 8:07 PM EDT [facility] Comment:e.g., Restoril; also Metabolite of Diazepam Temazepam Glucuronide <50 Cutoff 50 ng/mL ng/mL 03/06/2025 8:07 PM EDT [facility] Comment:Metabolite of Temaze swathi and Diazepam Triazolam <50 Cutoff 50 ng/mL ng/mL 03/06/2025 8:07 PM EDT [facility] Comment:e.g., Halcion alpha-hydroxytriazolam <50 Cutoff 50 ng/mL ng/mL 03/06/2025 8:07 PM EDT [facility] Comment:Metabolite of Triazo betancourt Buprenorphine <5 Cutoff 5 ng/mL ng/mL 03/06/2025 8:07 PM EDT [facility] Comment:e.g., Suboxone, Subu sona,Sublocade, Buprenex Buprenorphine Glucuronide <10 Cutoff 10 ng/mL ng/mL 03/06/2025 8:07 PM EDT [facility] Comment:Buprenorphine Metabo lite Norbuprenorphine <5 Cutoff 5 ng/mL ng/mL 03/06/2025 8:07 PM EDT [facility] Comment:Buprenorphine Metabo lite Norbuprenorphine Glucuronide <10 Cutoff 10 ng/mL ng/mL 03/06/2025 8:07 PM EDT [facility] Comment:Buprenorphine Metabo lite Benzoylecgonine <50 Cutoff 50 ng/mL ng/mL 03/06/2025 8:07 PM EDT [facility] Comment:Cocaine Metabolite Fentanyl <1 Cutoff 1 ng/mL ng/mL 03/06/2025 8:07 PM EDT [facility] Comment:e.g.,Duragesic, Oral et, Actiq, Sublimaze, Innovar, Lazanda Norfentanyl <1 Cutoff 1 ng/mL ng/mL 03/06/2025 8:07 PM EDT [facility] Comment:Metabolite of Fentan yl 6-Monoacetylmorphine (6MAM) <10 Cutoff 10 ng/mL ng/mL 03/06/2025 8:07 PM EDT [facility] Comment:Metabolite of Heroin ; Morphine is expected Methadone <50 Cutoff 50 ng/mL ng/mL 03/06/2025 8:07 PM EDT [facility] Comment:e.g., Dolophine, Met hadose, Amidone EDDP <50 Cutoff 50 ng/mL ng/mL 03/06/2025 8:07 PM EDT [facility] Comment:Methadone Metabolite Carisoprodol <100 Cutoff 100 ng/mL ng/mL 03/06/2025 8:07 PM EDT [facility] Comment:e.g., Soma Meprobamate <100 Cutoff 100 ng/mL ng/mL 03/06/2025 8:07 PM EDT [facility] Comment:e.g., [place], Equa nil, Micrainin, Equagesic; Metabolite of Carisoprodol Codeine <50 Cutoff 50 ng/mL ng/mL 03/06/2025 8:07 PM EDT [facility] Comment:e.g., Acetaminophen w/Codeine, Tylenol3 w/ Codeine Codeine Glucuronide <50 Cutoff 50 ng/mL ng/mL 03/06/2025 8:07 PM EDT [facility] Comment:Metabolite of Codein e Meperidine <50 Cutoff 50 ng/mL ng/mL 03/06/2025 8:07 PM EDT [facility] Comment:e.g., Demerol, Pethi dine Normeperidine <50 Cutoff 50 ng/mL ng/mL 03/06/2025 8:07 PM EDT [facility] Comment:Metabolite of Meperi dine Morphine <50 Cutoff 50 ng/mL ng/mL 03/06/2025 8:07 PM EDT [facility] Comment:e.g., MS Contin, Leonor anol; Metabolite of Codeine and Heroin; may reflect poppy seed ingestion Nawfulxo-0-Uausceoxaua <25 Cutoff 25 ng/mL ng/mL 03/06/2025 8:07 PM EDT [facility] Comment:Metabolite of Morphi ne. Cjtkcsmk-3-Ezzcronguxi <25 Cutoff 25 ng/mL ng/mL 03/06/2025 8:07 PM EDT [facility] Comment:Metabolite of Morphi ne. Naloxone <25 Cutoff 25 ng/mL ng/mL 03/06/2025 8:07 PM EDT [facility] Comment:e.g., Narcan, Evzio Hydrocodone <50 Cutoff 50 ng/mL ng/mL 03/06/2025 8:07 PM EDT [facility] Comment:e.g., Lorcet, Lortab , Vicodin, Francitas; Minor Metabolite of Codeine Dihydrocodeine <50 Cutoff 50 ng/mL ng/mL 03/06/2025 8:07 PM EDT [facility] Comment:e.g., Didrate, Parzo ne, Parlor, Synalgos; Metabolite of Hydrocodone Norhydrocodone <50 Cutoff 50 ng/mL ng/mL 03/06/2025 8:07 PM EDT [facility] Comment:Metabolite of Hydroc odone Hydromorphone <50 Cutoff 50 ng/mL ng/mL 03/06/2025 8:07 PM EDT [facility] Comment:e.g., Dilaudid; also Metabolite of Hydrocodone and Minor Metabolite of Morphine Hydromorphone Glucuronide <50 Cutoff 50 ng/mL ng/mL 03/06/2025 8:07 PM EDT [facility] Comment:Metabolite of Hydrom orphone Oxycodone <50 Cutoff 50 ng/mL ng/mL 03/06/2025 8:07 PM EDT [facility] Comment:e.g., Oxycontin, Per cocet, Endocet, Percodan, Roxicet Noroxycodone <50 Cutoff 50 ng/mL ng/mL 03/06/2025 8:07 PM EDT [facility] Comment:Metabolite of Oxycod one Oxymorphone <50 Cutoff 50 ng/mL ng/mL 03/06/2025 8:07 PM EDT [facility] Comment:e.g., Opana; Metabol ite of Oxycodone Oxymorphone Glucuronide <50 Cutoff 50 ng/mL ng/mL 03/06/2025 8:07 PM EDT [facility] Comment:Metabolite of Oxycod one Noroxymorphone <50 Cutoff 50 ng/mL ng/mL 03/06/2025 8:07 PM EDT [facility] Comment:Metabolite of Oxycod one, and Oxymorphone, Noroxycodone Metabolite Tramadol <50 Cutoff 50 ng/mL ng/mL 03/06/2025 8:07 PM EDT [facility] Comment:e.g., Ultram, ConZip Z-Tnexeafss-jre-Tramadol <50 Cutoff 50 ng/mL ng/mL 03/06/2025 8:07 PM EDT [facility] Comment:Metabolite of Tramad ol Tapentadol <50 Cutoff 50 ng/mL ng/mL 03/06/2025 8:07 PM EDT [facility] Comment:Nucynta Tapentadol-Glucuronide <50 Cutoff 50 ng/mL ng/mL 03/06/2025 8:07 PM EDT [facility] Comment:Metabolite of Tapent adol Urine Creatinine 96.0 mg/dL 03/06/20 8:07 PM EDT [facility] Comment: Greater than 20: Consistent with valid sample Greater than 2 but less than 20: Possible dilution Less than 2: Questionable valid sample Urine STRUCTURE OF URINARY TRACT PROPER / Unknown 03/05/2025 11:28 AM EDT 03/05/2025 11:28 AM EDT Narrative [facility] - 03/06/2025 8:07 PM EDT The absence of expected drug(s), and/or drug metabolite(s), may indicate non-compliance, diluted or adulterated urine, poor drug absorption, concentration of drug below the cut-off, timing of specimen collection relative to administration of drug, or limitations of testing. Specimens are held for 7 days. This test was developed, and its performance characteristics determined by [facility] ([facility]). It has not been cleared or approved by the FDA. This test is used for clinical purposes. It should not be regarded as investigational or for research. [facility] is certified under the Clinical Laboratory Improvement Amendments (CLIA) as qualified to perform high complexity clinical laboratory testing. Malinda Patterson MD URINE ORDERABLES Final Result [facility], [address] , [place] [address] [facility] [address] [place] [id number] * SCANNED RHYTHM STRIPS (01/03/2025 10:20 AM EST) Only the most recent of4 resultswithin the time period is included. Anatomical Region Laterality Modality Other 01/03/2025 10:2 0 AM EST us Unknown Provider IMG ECG ORDERABLES Final Result * INTRAOP AIRWAY PLACEMENT (01/02/2025 12:01 PM EST) Narrative [facility] - 01/02/2025 12:01 PM EST Brittany Malinda Jaquelin, CALL OR CONTACT CENTRE MANAGER 01/02/2025 12:25 PM Intraop Airway Placement: Date/Time: 01/02/2025 12:01 PM Induction type: IV Mask size: Standard adult Pre-Oxygenation: Standard Mask ventilation: Easy mask ventilation Technique: Video laryngoscope Laryngoscope blade: appEatIT Blade size: 3 Grade view: I Airway type: ETT- cuffed Intubation assist devices: Stylet 14fr Airway location: Oral Device size: 7mm Secured at: 21 cm Secured by: Tape Measured from: Lips Placement verified: End tidal CO2 and Symmetric chest wall motion Condition: Atraumatic and Unchanged Insertion attempts: 1 Title: CALL OR CONTACT CENTRE MANAGER Zoltan Ricketts MD GA ANESTHESIA Edited Result - Final Performing Organization Address City/[facility] [place] [address] * POCT URINE (01/02/2025 10:35 AM EST) Only the most recent of5 resultswithin the time period is included. Preg Test, Ur negative [facility] Lot Number [id number] [facility] Expiration Date 2025 [facility] SeriAl # [facility] Control Line Yes YES/NO [facility] 01/02/2025 10:3 5 AM EST Yesi Junior MD POINT OF CARE TEST ORDERA BLES Final Result Performing Organization Address [facility] Co de Phone Number [facility] [address] [place] [address], [facility] [phone] * POCT EKG (01/01/2025 8:36 AM EST) Only the most recent of2 resultswithin the time period is included. 01/01/2025 8:36 AM EST Malinda Patterson MD POINT OF CARE CARDIOLOG Y Final Result SEP OFFICE * PATHOLOGY TISSUE REQUEST (12/06/2024 3:37 PM EST) CASE REPORT Surgical Pathology Case: [id number] Authorizing Provider: Sree Howell MD Collected: 12/06/2024 1537 Ordering Location: [facility] Received: 12/06/2024 193 Pathologist: Yadira Luis MD Specimen: Gallbladder, gallbladder 12/10/2024 9:14 AM [facility] FINAL DIAGNOSIS Gallbladder, cholecystectomy: - Acute and chronic cholecystitis. - Cholelithiasis. - 1 benign lymph node. 12/10/2024 9:14 AM [facility] at 0914 EST GROSS DESCRIPTION The specimen is received in formalin, labeled with the patient's name, medical record number, and gallbladder . It consists of an 8.6 x 4.7 x 2.6 cm intact cholecystectomy specimen with a clamped, patent cystic duct. The specimen is opened to reveal abundant green, viscous bile, admixed with multiple irregular brown choleliths, ranging from 0.1 to 1.1 cm. The mucosa is brown-green and velvety. No discrete lesions are identified. Head Charger sections, to include 1 whole lymph node candidate and the cystic duct margin, en face are submitted in cassette A1. DAVID Cunningham PA([facility]) 12/07/2024 12/10/2024 9:14 AM [facility] MICROSCOPIC DESCRIPTION The microscopic examination may have been rendered in whole, or in part, by analyzing high-resolution digital images (whole slide images) on the [employer] Digital Pathology platform validated at [facility]. 12/10/2024 9:14 AM EST [facility] EMBEDDED IMAGES 12/10/2024 9:14 AM [facility] ENTIRE GALLBLADDER / Unknown 12/06/2024 3:37 PM EST 12/06/2024 7:39 PM EST us Sree Howell MD PATHOLOGY ORDERABLES Final Result Performing Organization Address [facility] Co de Phone Number [facility] [address] [place] [address] [facility] [address] [place] [address] [phone] * INTRAOP AIRWAY PLACEMENT (12/06/2024 3:05 PM EST) Narrative [facility] - 12/06/2024 3:05 PM EST Regine Bennett CRNA 12/06/2024 3:19 PM Intraop Airway Placement: Date/Time: 12/06/2024 3:05 PM Induction type: IV Mask size: Standard adult Pre-Oxygenation: Standard Mask ventilation: Easy mask ventilation Mask ventilation improved by: Head adjustment Technique: Video laryngoscope Laryngoscope blade: Wilder Blade size: 3 Grade view: I Airway type: ETT- cuffed Intubation assist devices: Stylet 14fr Airway location: Oral Device size: 7mm Secured at: 21 cm Secured by: Tape Measured from: Teeth Placement verified: Auscultation, End tidal CO2 and Symmetric chest wall motion Condition: Atraumatic and Unchanged Insertion attempts: 1 Attempt 1 by: MARCUS Title: CALL OR CONTACT CENTRE MANAGER us Michael Haile MD GA ANESTHESIA Final Re sult Performing Organization Address [facility] Co de Phone Number [facility] [address] [place], [place] [id number] * (ABNORMAL) HEMOGLOBIN A1C (12/04/2024 1:02 PM EST) Only the most recent of16 resultswithin the time period is included. Hgb A1C 7.8(H) 4.2 - 5.6 % 12/04/2024 8:24 PM EST [facility] Est. Avg Glucose 177 mg/dL 12/04/2024 8:24 PM EST [facility] Blood VENOUS BLOOD / Unknown Venipuncture / Unknown 12/04/2024 1:02 PM EST 12/04/2024 1:02 PM EST Narrative [facility] - 12/04/2024 8:24 PM EST REFERENCE RANGE: Normal: 4.0-5.6% Pre-diabetes: 5.7-6.4% Provisional diagnosis of diabetes: >6.4% Hgb F>10% and anything which shortens red cell survival, such as hemolytic anemia, or unstable hemoglobin variants such as HbSS, HbSC, or HbCC, will lower the HbA1c value associated with a given level of glycemic control. us Bernadette Rangel BONE CHAR OPERATOR CHEMISTRY ORDERABLES Final Result [facility], [address] , [address] [place] [phone] [facility] [address] [place], [place] [phone] * URINALYSIS REFLEX (10/15/2024 8:35 PM EST) Only the most recent of5 resultswithin the time period is included. UA Color Light Yellow 10/15/2024 8:52 PM EST [facility] UA Appear Clear Clear 10/15/2024 8:52 PM EST [facility] UA Glucose Negative Negative mg/dL 10/15/2024 8:52 PM EST [facility] UA Ketones Negative Negative mg/dL 10/15/2024 8:52 PM EST [facility] UA Blood Negative Negative 10/15/2024 8:52 PM EST [facility] UA pH 5.5 5.0 - 8.0 pH 10/15/2024 8:52 PM EST [facility] UA Protein Negative Negative mg/dL 10/15/2024 8:52 PM EST [facility] UA Urobilinogen Normal <=1 mg/dL 8:52 PM EST [facility] UA Bili Negative Negative 10/15/2024 8:52 PM EST [facility] UA Nitrite Negative Negative 10/15/2024 8:52 PM EST [facility] UA Leuk Est Negative Negative 10/15/2024 8:52 PM EST [facility], [facility] UA Spec Grav 1.016 1.001 - 1.035 no units 10/15/2024 8:52 PM EST [facility] Comment:Reference range dmitry d for random specimens only. Urine URINE SPECIMEN COLLECTION, CLEAN CATCH / Unknown 10/15/2024 8:35 PM EST 10/15/2024 8:42 PM EST us Michael Perez DO URINE ORDERABLES Final Result Performing Organization Address [facility] Co de Phone Number [facility] [employer] [facility] [address] [facility], [place] [address] * EXTRA WALL URINE CX (10/15/2024 8:35 PM EST) Only the most recent of7 resultswithin the time period is included. Urine URINE SPECIMEN COLLECTION, CLEAN CATCH / Unknown 10/15/2024 8:35 PM EST 10/15/2024 8:42 PM EST us Michael Perez DO MICROBIOLOGY - GENERAL ORDERA BLES Final Result Performing Organization Address [facility] [place] [address] * LIPASE LEVEL (10/15/2024 7:27 PM EST) Only the most recent of5 resultswithin the time period is included. Lipase Lvl 14 13 - 60 U/L 10/15/2024 8:02 PM EST [facility] Blood VENOUS BLOOD / Unknown Venipuncture / Unknown 10/15/2024 7:27 PM EST 10/15/2024 7:36 PM EST us Michael Perez DO CHEMISTRY ORDERABLES Final Re sult Performing Organization Address [facility] Co de Phone Number [facility] [address] [place] [address] * POTASSIUM REPEAT (09/10/2024 9:57 AM EST) Potassium 4.3 3.5 - 5.0 mmol/L 09/10/2024 10:27 AM EST [facility] Blood CAPILLARY BLOOD / Unknown Capillary / Unknown 09/10/2024 9:57 AM EST 09/10/2024 10:02 AM EST Cecily Campos BONE CHAR OPERATOR CHEMISTRY ORDERABLES Final Result [facility] [address] [facility] , [place] [address] * NM MYOCARDIAL PERFUSION SPECT STRESS AND REST (09/10/2024 9:51 AM EST) Only the most recent of3 resultswithin the time period is included. Anatomical Region Laterality Modality Nuclear Medicine 09/09/2024 11:0 2 AM EST Impressions 09/10/2024 1:53 PM EST Conclusions * Homogenous uptake of isotope throughout the left ventricle on both stress and rest images. * No evidence of myocardial ischemia or infarction. * Ejection fraction is greater than 65%. * Overall left ventricular systolic function was normal without regional wall motion abnormalities. Narrative Procedure Note King Vega MD - 09/10/2024 IMPRESSION Conclusions * Homogenous uptake of isotope throughout the left ventricle on bothstress and rest images. * No evidence of myocardial ischemia or infarction. * Ejection fraction is greater than 65%. * Overall left ventricular systolic function was normal withoutregional wall motion abnormalities. Sree Pollock MD [facility] NM CARDIAC ORDERABLES Fin al Result * ST STRESS TEST LEXISCAN (09/10/2024 8:57 AM EST) Anatomical Region Laterality Modality Cardiac Stress T esting 09/10/2024 8:23 AM EST Impressions 09/10/2024 10:[address] [facility] Test Date: 2024-09-10 Pat Name: KRISTIN ESPINOZA Department: DEPID Room: 5411 Gender: Female Dials Supervisor: DANUTA Rios RN : 1970 Requested By: SREE POLLOCK Order Number: [id number] Reading MD: King Vega MD Interpretive Statements Stress Test Lexiscan Ordering Diagnosis: Chest Pain Resting HR: 91 Peak HR: 144 Resting B/P: 101/81 Peak B/P: 118/78 1. Lexiscan 0.4 mg was given IV push at 30 seconds into protocol. 2. Lexiscan injection was done without low level exercise. 3. Was the test changed from Exercise to Lexiscan? no 4. Termination of test due to protocol completion. 5. Symptoms: Flushing, sweaty, chest tightness during testing, all Sx resolved in recovery 6. No Aminophylline given. 7. Nuclear Imaging reported separately. Physician Interpretation Resting ECG: SR 94bpm Arrhythmias: None Conclusion: Non-diagnostic ECG with Lexiscan stress. Electronically Signed On 09-10-2024 10:46:46 EST by King Vega MD Narrative Procedure Note King Vega MD - 09/10/[address] [facility] Test Date: 2024-09-10 Pat Name: KRISTIN ESPINOZA Department: DEPID Room: [facility] Gender: Female Dials Supervisor: DANUTA Rios RN : 1970 Requested By: SREE POLLOCK Order Number: [id number] Reading MD: King Vega MD Interpretive Statements Stress Test Lexiscan Ordering Diagnosis: Chest Pain Resting HR: 91 Peak HR: 144 Resting B/P: 101/81 Peak B/P: 118/78 1. Lexiscan 0.4 mg was given IV push at 30 seconds into protocol. 2. Lexiscan injection was done without low level exercise. 3. Was the test changed from Exercise to Lexiscan? no 4. Termination of test due to protocol completion. 5. Symptoms: Flushing, sweaty, chest tightness during testing, all Sx resolved in recovery 6. No Aminophylline given. 7. Nuclear Imaging reported separately. PhysicianInterpretation Resting ECG: SR 94bpm Arrhythmias: None Conclusion: Non-diagnostic ECG with Lexiscan stress. Electronically Signed On 09-10-2024 10:46:46 EST by King Vega MD us Sree Pollock MD IMG STRESS ORDERABLES Final R esult * ECG AND WAVEFORMS - TELEMETRY (09/10/2024 6:59 AM EST) Only the most recent of13 resultswithin the time period is included. [facility] ECG INTERPRET NSR [facility] 09/10/2024 6:59 AM EST Narrative [facility] - 09/10/2024 7:38 AM EST ROUTINE//AC GA 0.16 QRS 0.12 RR 0.82 QT 0.38 QTc 0.42 See Clinical Report link for waveform capture us Unknown Provider POINT OF CARE CARDIOLOGY Final Result [facility] [address] [place] [address] * (ABNORMAL) LIPID SCREEN (09/09/2024 6:52 AM EST) Only the most recent of3 resultswithin the time period is included. [facility] Cholesterol 101 <200 mg/dL 09/09/2024 7:28 AM EST [facility] Comment: < 200 Desirable 200 - 239 Borderline High >= 240 High Triglyceride 70 <150 mg/dL 09/09/2024 7:28 AM EST [facility] Comment: < 150 Normal 150 - 199 Borderline High 200 - 499 High >= 500 Very High HDL 37(L) >=40 mg/dL 09/09/2024 7:28 AM EST [facility] Comment: > 60 Optimal 40 - 60 Acceptable < 40 Low LDL Calculated 49 <100 mg/dL 09/09/2024 7:28 AM EST [facility] Comment: < 100 Optimal 100 - 129 Near or above optimal 130 - 159 Borderline High 160 - 189 High >= 190 Very High Non-HDL-C Calculated 64 <=129 mg/dL 09/09/2024 7:28 AM EST [facility] Comment: <130 Desirable 130-159 Above Desirable 160-189 Borderline High 190-219 High >= 220 Very High Fasting Specimen? Yes None 024 7:28 AM EST [facility] Blood VENOUS BLOOD / Unknown Venipuncture / Unknown 09/09/2024 6:52 AM EST 09/09/2024 6:55 AM EST us Sree Pollock MD CHEMISTRY ORDERABLES Final Re sult [facility] [address] [facility], [place] [address] [facility] [address] [place] [address] * TROPONIN-T HIGH SENSITIVITY 2HR (09/08/2024 1:19 AM EDT) Only the most recent of4 resultswithin the time period is included. vx-[id number]-Z 2HR <6 <14 ng/L 09/08/2024 1:40 AM EDT [facility] Comment:See the website [facility] Linkpass for rule out [place] care pathway, conditions other than AMI that can cause elevated hs cTnT, and comparison of values from the 4th and 5th generation Ramon tests. [email or web address]/[email or web address]/[email or web address] hs-cTnT 2Hr Delta from Baseline 09/08/2024 1:40 AM EDT [facility] Comment:Unable to calculate, result is outside instrument's measuring range. Blood VENOUS BLOOD / Unknown Venipuncture / Unknown 09/08/2024 1:19 AM EDT 09/08/2024 1:19 AM EDT Narrative [facility] - 09/08/2024 1:40 AM EDT Ingestion of tabatha doses of biotin (>5 mg/day) taken within 8 hours of drawing blood sample can interfere with this immunoassay test. us Shanae Elder MD CHEMISTRY ORDERABLES Final Re sult Performing Organization Address City/[facility]/ZIP Co de Phone Number [facility] [address] [place] [phone] * D-DIMER (09/07/2024 11:57 PM EDT) Only the most recent of2 resultswithin the time period is included. D-Dimer 372 <=500 ng/mL FEU 09/08/2024 12:16 AM EDT [facility] Comment:This is an automated latex enhanced immunoassay for the quantitative determination of D-Dimer that may be used, in conjunction with a clinical pretest probability assessment, to exclude venous thromboembolism in patients suspected of deep venous thrombosis (DVT) and pulmonary embolism (PE). The cutoff for exclusion of DVT and PE is 500 ng/mL Fibrinogen Equivalent Units (FEU). Elevated D-Dimer levels may be associated with PE, DVT, disseminated intravascular coagulation, recent surgery, recent bleeding, , malignancy, and inflammation. Blood VENOUS BLOOD / Unknown Venipuncture / Unknown 09/07/2024 11:57 PM EDT 09/08/2024 12:04 AM EDT Narrative [facility] - 09/08/2024 12:16 AM EDT For patients between the ages of 50 - 75, an age-adjusted D-Dimer cut-off in combination with non-high clinical probability may be considered for the exclusion of venous thromboembolism (calculation = age x 10). BERNADETTE Hughes, et al. [employer] Work[employer] Med. 2017;166(5):361-363 VALENCIA Buckley, et al. [employer] Work[employer] Med. 2015;(163):701-711. Miles Pagan, et al. KAITLIN. 2014;(11):7536-9384. us Chloe GO HEMATOLOGY ORDERABLES Final Res ult Performing Organization Address City/[facility]/ZIP Co de Phone Number [facility] [address] [place] [address] , [place] [address] * (ABNORMAL) HEPATIC FUNCTION PANEL (09/07/2024 10:46 PM EDT) Only the most recent of4 resultswithin the time period is included. Total Protein 7.4 6.4 - 8.3 gm/dL 09/07/2024 11:42 PM EDT [facility] Albumin 4.0 3.5 - 5.2 gm/dL 09/07/2024 11:42 PM EDT [facility] Bili Direct 0.8(H) 0.0 - 0.3 mg/dL 09/07/2024 11:42 PM EDT [facility] Bili Total 1.4(H) 0.2 - 1.3 mg/dL 09/07/2024 11:42 PM EDT [facility] AST 117(H) <=40 U/L 09/07/2024 11:42 PM EDT [facility] ALT 74(H) <=41 U/L 09/07/2024 11:42 PM EDT [facility] Alk Phos 222(H) 36 - 123 U/L 09/07/2024 11:42 PM EDT [facility] Blood VENOUS BLOOD / Unknown Venipuncture / Unknown 09/07/2024 10:46 PM EDT 09/07/2024 10:46 PM EDT us Chloe GO CHEMISTRY ORDERABLES Final Resu lt [facility] [address] [place] [address] * XR CHEST AP PORTABLE (09/07/2024 10:45 PM EDT) Only the most recent of11 resultswithin the time period is included. Anatomical Region Laterality Modality Chest Radiographic Loan ging 09/07/2024 10:4 5 PM EDT Impressions 09/07/2024 10:49 PM EDT * No acute cardiopulmonary process. - Note: Radiology results need to be interpreted within a comprehensive clinical context. If you have questions about the radiology report, please contact the office of the ordering clinician. Narrative 09/07/2024 10:49 PM EDT XR CHEST AP PORTABLE, 09/07/2024 10:45 PM CLINICAL HISTORY: -chest pain COMPARISON: November 23, 2023 PROCEDURE COMMENTS: AP portable technique. FINDINGS: Support devices: Electrocardiogram leads and electrodes overlie the chest. Relative elevation RIGHT hemidiaphragm is stable. Stable heart size. Lungs remain clear. Procedure Note Siddhartha Kim MD - 09/07/2024 XR CHEST AP PORTABLE, 09/07/2024 10:45 PM CLINICAL HISTORY: -chest pain COMPARISON: November 23, 2023 PROCEDURE COMMENTS: AP portable technique. FINDINGS: Support devices: Electrocardiogram leads and electrodes overlie thechest. Relative elevation RIGHT hemidiaphragm is stable. Stable heart size.Lungs remain clear. IMPRESSION: * No acute cardiopulmonary process. - Note: Radiology results need to be interpreted within a comprehensiveclinical context. If you have questions about the radiology report, please contactthe office of the ordering clinician. Shanae Elder MD IMG DIAGNOSTIC IMAGING ORDERA BLES Final Result * SEP URINALYSIS POC (08/13/2024 7:57 AM EDT) Only the most recent of3 resultswithin the time period is included. UA Color POC Yellow Color 08/13/2024 7:59 AM EDT [facility] Appear POC Clear Clear 08/13/2024 7:59 AM EDT [facility] Gluc POC Negative Negative mg/dL 08/13/2024 7:59 AM EDT [facility]A Bili POC Negative Negative 08/13/2024 7:59 AM EDT [facility] UA Ketones POC Negative Negative mg/dL 08/13/2024 7:59 AM EDT [facility] SG POC 1.020 1.001 - 1.035 no units 08/13/2024 7:59 AM EDT [facility] Blood POC Negative Negative 08/13/2024 7:59 AM EDT [facility] pH POC 6.0 5.0 - 8.0 pH 08/13/2024 7:59 AM EDT [facility] Protein POC Negative Negative mg/dL 08/13/2024 7:59 AM EDT [facility] Urobilinogen POC 1.0 0.2, 1.0 08/13/2024 7:59 AM EDT [facility] Nitrite POC Negative Negative 08/13/2024 7:59 AM EDT [facility] UA Leuk Est POC Negative Negative 7:59 AM EDT [facility] Urine URINE SPECIMEN COLLECTION / Unknown 08/13/2024 7:57 AM EDT 08/13/2024 7:59 AM EDT us Shauna Guardado BONE CHAR OPERATOR POINT OF CARE TEST ORDER JUN Final Result [facility] UROGYNECOLOGY [address] [place] [address] * URINALYSIS (07/17/2024 3:01 PM EDT) Only the most recent of9 resultswithin the time period is included. UA Color Yellow 07/17/2024 8:20 PM EDT [facility] UA Appear Clear Clear 07/17/2024 8:20 PM EDT [facility] UA Glucose Trace (30-50 mg/dL) Negative mg/dL 07/17/2024 8:20 PM EDT [facility] UA Ketones Negative Negative mg/dL 07/17/2024 8:20 PM EDT [facility] UA Blood Negative Negative 07/17/2024 8:20 PM EDT [facility] UA pH 5.5 5.0 - 8.0 pH 07/17/2024 8:20 PM EDT [facility] UA Protein Negative Negative mg/dL 07/17/2024 8:20 PM EDT [facility] UA Urobilinogen Normal <=1 mg/dL 8:20 PM EDT [facility] UA Bili Negative Negative 07/17/2024 8:20 PM EDT [facility] UA Nitrite Negative Negative 07/17/2024 8:20 PM EDT [facility] UA Leuk Est Negative Negative 07/17/2024 8:20 PM EDT [facility] UA Spec Grav 1.020 1.001 - 1.035 no units 07/17/2024 8:20 PM EDT [facility] Comment:Reference range dmitry d for random specimens only. Urine URINE SPECIMEN OBTAINED VIA STRAIGHT CATHETER / Unknown 07/17/2024 3:01 PM EDT 07/17/2024 3:01 PM EDT Yesi Juniro MD URINE ORDERABLES Final Re sult Performing Organization Address [facility] Co de Phone Number [facility] [employer] , [place] [address] * URINE CULTURE (NO STAIN) (07/17/2024 3:01 PM EDT) Only the most recent of6 resultswithin the time period is included. Culture No growth at 30 hours. 07/19/2024 6:17 AM EDT [facility] Urine URINE SPECIMEN OBTAINED VIA STRAIGHT CATHETER / Unknown 07/17/2024 3:01 PM EDT 07/17/2024 3:01 PM EDT Yesi Junior MD MICROBIOLOGY - GENERAL OR DERABLES Final Result Performing Organization Address City/[facility]/ZIP Co de Phone Number [facility] [employer], [address] , [place] [address] * MM MAMMO DIGITAL KATIE SCREEN BILAT (07/12/2024 10:19 AM EDT) Anatomical Region Laterality Modality Breast Bilateral Mammography 07/12/2024 10:1 9 AM EDT Impressions 07/13/2024 7:56 AM EDT Negative ([id number]-1) RECOMMENDATION: Routine Screening Mammogram in 1 Year COMMENTS: Narrative 07/13/2024 7:56 AM EDT EXAM: MM MAMMO DIGITAL KATIE SCREEN BILAT EXAM DATE: 07/12/2024 10:19 AM INDICATION: Z12.31-Encounter for screening mammogram for malignant neoplasm of [id number]-CM COMPARISON STUDIES: Compared with prior studies the most recent being 01/01/2021 TISSUE DENSITY: There are scattered areas of fibroglandular density. FINDINGS: No mammographic evidence of malignancy. Procedure Note Belinda Rodriguez MD - 07/13/2024 EXAM: MM MAMMO DIGITAL KATIE SCREEN BILAT EXAM DATE: 07/12/2024 10:19 AM INDICATION: Z12.31-Encounter for screening mammogram for malignantneoplasm of npfmip-AEE-19-CM COMPARISON STUDIES: Compared with prior studies the most recent being01/01/2021 TISSUE DENSITY: There are scattered areas of fibroglandular density. FINDINGS: No mammographic evidence of malignancy. IMPRESSION: Negative (PLI-Pccsepfm-5) RECOMMENDATION: Routine Screening Mammogram in 1 Year COMMENTS: Malinda Patterson MD IMG MAMMOGRAPHY ORDERAB LES Final Result * (ABNORMAL) LIPID PANEL REFLEX (07/12/2024 7:32 AM EDT) Only the most recent of15 resultswithin the time period is included. Cholesterol 177 <200 mg/dL 07/12/2024 2:33 PM EDT [facility] Comment: < 200 Desirable 200 - 239 Borderline High >= 240 High Triglyceride 127 <150 mg/dL 07/12/2024 2:33 PM EDT [facility] Comment: < 150 Normal 150 - 199 Borderline High 200 - 499 High >= 500 Very High HDL 54 >=40 mg/dL 07/12/2024 2:33 PM EDT [facility] Comment: > 60 Optimal 40 - 60 Acceptable < 40 Low LDL Calculated 101(H) <100 mg/dL 07/12/2024 2:33 PM EDT [facility] Non-HDL-C Calculated 123 <=129 mg/dL 07/12/2024 2:33 PM EDT [facility] Comment: <130 Desirable 130-159 Above Desirable 160-189 Borderline High 190-219 High >= 220 Very High Fasting Specimen? Yes None 024 2:33 PM EDT [facility] Blood VENOUS BLOOD / Unknown Venipuncture / Unknown 07/12/2024 7:32 AM EDT 07/12/2024 7:32 AM EDT Marshall Ovalle MD CHEMISTRY ORDERABLES Final Re sult Performing Organization Address [facility] de Phone Number [facility] [employer] [address] , [address] [place] [phone] [facility] [address] [place], [place] [phone] * THYROID STIMULATING HORMONE (07/12/2024 7:32 AM EDT) Only the most recent of10 resultswithin the time period is included. TSH 1.990 0.270 - 4.200 mcIU/mL 07/12/2024 2:33 PM EDT [facility] [employer] Blood VENOUS BLOOD / Unknown Venipuncture / Unknown 07/12/2024 7:32 AM EDT 07/12/2024 7:32 AM EDT Narrative [facility] [employer] - 07/12/2024 2:33 PM EDT Ingestion of tabatha doses of biotin (>5 mg/day) taken within 8 hours of drawing blood sample can interfere with this immunoassay test. Marshall Ovalle MD CHEMISTRY ORDERABLES Final Re sult Performing Organization Address [facility] de Phone Number [facility] [employer] [facility] [address] [facility] , [address] [place] [phone] * T4, FREE (THYROXINE) (07/12/2024 7:32 AM EDT) Only the most recent of9 resultswithin the time period is included. Free T4 1.33 0.80 - 1.80 ng/dL 07/12/2024 2:33 PM EDT [facility] Blood VENOUS BLOOD / Unknown Venipuncture / Unknown 07/12/2024 7:32 AM EDT 07/12/2024 7:32 AM EDT Narrative [facility] [employer] - 07/12/2024 2:33 PM EDT Ingestion of tabatha doses of biotin (>5 mg/day) taken within 8 hours of drawing blood sample can interfere with this immunoassay test. us Marhsall Ovalle MD CHEMISTRY ORDERABLES Final Re sult [facility] [address] [facility] , [place] [address] * SEEDLING PULLER CYTOLOGY REQUEST (PAP ONLY) (07/11/2024 11:41 AM EDT) Only the most recent of3 resultswithin the time period is included. CASE REPORT Gynecologic Cytology Report Case: [id number] Authorizing Provider: Malinda Patterson MD Collected: 07/11/2024 1141 Ordering Location: [facility] Received: 07/11/2024 1141 First Screen: Rafi Mcclellan CT Specimen: LIQUID-BASED PAP - CERVICAL/ENDOCERV ICAL, Cervix, Endocervical 07/13/2024 9:41 AM EDT [facility] PAP FINAL DIAGNOSIS Negative for intraepithelial lesion or malignancy 07/13/2024 9:41 AM EDT [facility] at 0941 EDT MICROSCOPIC DESCRIPTION Microscopic examination is performed and the findings corroborate the diagnosis. 07/13/2024 9:41 AM EDT [facility] PAP SMEAR ADEQUACY Satisfactory for evaluation 07/13/2024 9:41 AM EDT [facility] ENDOCERVICAL T-ZONE Transformation zone absent. 07/13/2024 9:41 AM EDT [facility] EMBEDDED IMAGES 9:41 AM EDT [facility] PAP DISCLAIMER The Pap Smear is a screening test that aids in the detection of cervical cancer and cancer precursors. Both false positive and false negative results can occur. The test should be used at regular intervals, and positive results should be confirmed before definitive therapy. Processed using the ThinPrep Drafting Layout Worker Automated cytology screening device ([employer]). 07/13/2024 9:41 AM EDT [facility] [employer] ENDOCERVICAL STRUCTURE / Unknown 07/11/2024 11:41 AM EDT 07/11/2024 11:41 AM EDT Malinda Patterson MD CYTOLOGY ORDERABLES Fin al Result Performing Organization Address [facility] Co de Phone Number [facility] [address] [place] [phone] * TRICHOMONAS VAGINALIS BY TMA (PAP PANEL) (07/11/2024 11:41 AM EDT) Trichomonas vaginalis by TMA Not Detected Not Detected 07/13/2024 3:04 AM EDT [facility] Thin Prep SPECIMEN FROM UTERINE CERVIX / Unknown 07/11/2024 11:41 AM EDT 07/11/2024 11:41 AM EDT Narrative PREFERRED [employer] - 07/13/2024 3:04 AM EDT Test methodology is procurement specialist mediated amplification (TMA) using the Aptima Trichomonas vaginalis assay from [employer]. A negative result does not completely rule out a Trichomonas vaginalis infection due to potential inhibitors or levels present below the limit of detection of this assay. Results are dependent on proper collection and transport of specimen. This test is indicated for medical purposes only and should not be used for legal or forensic purposes. The assay has been cleared by the FDA to test the following specimens from symptomatic or asymptomatic women: clinician-collected endocervical swabs, clinician-collected vaginal swabs, and specimens collected in PreservCyt solution. Testing on first-catch male and female urine is not FDA-approved by this methodology; performance characteristics of the assay on these sample types were determined by [facility]. Malinda Patterson MD MICROBIOLOGY - GENERAL ORDERABLES Final Result Performing Organization Address City/[facility]/ZIP Co de Phone Number [facility] [address] [place] [address], [place] [address] * GC CHLAMYDIA THIN PREP (07/11/2024 11:41 AM EDT) Only the most recent of2 resultswithin the time period is included. Chlamydia trachomatis Not Detected Not Detected 07/12/2024 1:43 PM EDT [facility]REFERRED [facility] Neisseria gonorrhoeae Not Detected Not Detected 07/12/2024 1:43 PM EDT [facility] Thin Prep SPECIMEN FROM UTERINE CERVIX / Unknown 07/11/2024 11:41 AM EDT 07/11/2024 11:41 AM EDT Narrative [facility]REFERRED [facility] - 07/12/2024 1:43 PM EDT Testing methodology is procurement specialist mediated amplification (TMA) using the Aptima Combo 2 assay from [employer]. A negative result does not completely rule out a Chlamydia trachomatis or Neisseria gonorrhoeae infection due to potential inhibitors or levels present below the limit of detection by this assay. Results are dependent on proper collection and transport of specimen. This test is indicated for medical purposes only and should not be used for legal or forensic purposes. The performance characteristics of this assay were validated by the testing laboratory. This assay is FDA cleared to test the following specimens: clinician-collected endocervical, vaginal, male urethral swab specimens, rectal swabs, and throat/pharyngeal swabs; patient collected vaginal specimens within a clinic setting; Thin Prep Specimens in PreservCyt Solution; and first-stream, unpreserved male and female urine specimens. Detailed methodology is available upon request. Malinda Patterson MD MICROBIOLOGY - GENERAL ORDERABLES Final Result [facility] [address] [facility] , [place] [address] * HPV HIGH RISK WITH REFLEX TO GENOTYPE (07/11/2024 11:41 AM EDT) Only the most recent of2 resultswithin the time period is included. HPV HR Reflex Not Detected Not Detected 024 1:27 PM EDT [facility] Thin Prep SPECIMEN FROM UTERINE CERVIX / Unknown 07/11/2024 11:41 AM EDT 07/11/2024 11:41 AM EDT Narrative [facility]REFERRED [employer] - 07/12/2024 1:27 PM EDT This test was performed using the FDA Approved APTIMA HPV mRNA assay which detects E6/E7 messenger RNA of High Risk HPV types (16, 18, 31, 33, 35, 39, 45, 51, 52, 56, 58, 59, 66, and 68). This assay is intended for use in women 21 years or older with ASC-US cervical cytology or women 30 years or older. This assay is not intended to substitute for regular cervical cytology screening. Detection of HPV using the APTIMA HPV Assay does not differentiate HPV types and cannot evaluate persistence of any one type. The use of this assay has not been evaluated for the management of HPV vaccinated women, women with prior ablative or excisional therapy, hysterectomy, or who are . Sensitivities may be affected by collection methods, stage of infection, and the presence of interfering substances. Results of this assay should be interpreted in conjunction with other available laboratory and clinical data. Malinda Patterson MD MICROBIOLOGY - GENERAL ORDERABLES Final Result [facility] [address] [facility] , [place] [address] * PT / INR (06/28/2024 2:25 PM EDT) Only the most recent of5 resultswithin the time period is included. PT 12.9 10.5 - 13.6 second(s) 06/28/2024 2:45 PM EDT [facility] INR 1.10 0.89 - 1.16 (ratio) 06/28/2024 2:45 PM EDT [facility] Comment: Level of Therapy Indications Target INR Range Standard Dose Treatment and prophylaxis of venous 2.0 - 3.0 thrombosis, pulmonary embolism High Dose High risk patients with mechanical 2.5 - 3.5 heart valves Blood VENOUS BLOOD / Unknown Venipuncture / Unknown 06/28/2024 2:25 PM EDT 06/28/2024 2:34 PM EDT Pam Dahl MD HEMATOLOGY ORDERABLES Final Result Performing Organization Address [facility] de Phone Number [facility], [facility] [address] [facility], [address] [place] [phone] * LACTIC ACID (06/28/2024 2:25 PM EDT) Only the most recent of3 resultswithin the time period is included. Pathologist [facility] Lactic Acid 1.0 0.5 - 1.9 mmol/L 06/28/2024 2:46 PM EDT [facility] Blood VENOUS BLOOD / Unknown Venipuncture / Unknown 06/28/2024 2:25 PM EDT 06/28/2024 2:32 PM EDT Pam Dahl MD CHEMISTRY ORDERABLES Final Result Performing Organization Address [facility] de Phone Number [place] [phone] * (ABNORMAL) POCT GLUCOSE (12/05/2023 3:15 PM EST) Only the most recent of6 resultswithin the time period is included. Pathologist [facility] Glucose 246(A) 60 - 200 MG/DL SEP OFFICE Lot Number [id number] SEP OFFICE Expiration Date 01-26-2024 SEP OFFICE SeriAl # SEP OFFICE Meter SEP OFFICE 12/05/2023 3:15 PM EST Malinda Patterson MD POINT OF CARE TEST JUANITO CORDERO Final Result Performing Organization Address [facility] de Phone Number SEP OFFICE * (ABNORMAL) [id number] A/B (11/23/2023 10:11 AM EST) Only the most recent of2 resultswithin the time period is included. Pathologist [facility] CORONAVIRUS [id number] Not Detected Not Detected 11/23/2023 10:42 AM EST [facility] Influenza A DNA Detected(A) Not Detected 11/23/2023 10:42 AM EST [facility] Influenza B DNA Not Detected Not Detected 11/23/2023 10:42 AM EST [facility] Swab BOTH ANTERIOR NARES / Unknown 11/23/2023 10:11 AM EST 11/23/2023 10:17 AM EST Narrative [facility] - 11/23/2023 10:42 AM EST This test is a real-time RT-PCR test that simultaneously detects and differentiates nucleic acids from SARS-CoV-2, influenza A and influenza B in individuals suspected of a respiratory viral infection. Not Detected results do not preclude COVID-19 or influenza virus infection or other respiratory viruses and should not be used as the sole basis for treatment or other patient management decisions. Test is performed on the [employer] PABLITO platform under the FDA's Emergency Use Authorization (EUA). PABLITO Fact Sheet for Providers and Patients: P[employer]O Fact Sheet for Providers: https://www.fda.gov/media/438904/download PABLITO Fact Sheet for Patients: https://www.fda.gov/media/084182/download Jose Ramon Infante APRN MICROBIOLOGY - GENERAL JUANITO CORDERO Final Result [facility] [address] [place] [address] * XR CHEST PA AND LATERAL (11/23/2023 9:39 AM EST) Only the most recent of4 resultswithin the time period is included. Anatomical Region Laterality Modality Chest Radiographic Loan ging 11/23/2023 9:39 AM EST Impressions 11/23/2023 9:43 AM EST No acute finding. - Note: Radiology results need to be interpreted within a comprehensive clinical context. If you have questions about the radiology report, please contact the office of the ordering clinician. Narrative 11/23/2023 9:43 AM EST PA AND LATERAL CHEST X-RAY, 11/23/2023 9:39 AM CLINICAL HISTORY: -HYPOGLYCEMIA COMPARISON: 09/22/2022 PROCEDURE COMMENTS: Frontal and lateral views of the chest. FINDINGS: Cardiovascular structures within normal limits. No pneumonia or effusion. No pneumothorax. Procedure Note King Jason MD - 11/23/2023 PA AND LATERAL CHEST X-RAY, 11/23/2023 9:39 AM CLINICAL HISTORY: -HYPOGLYCEMIA COMPARISON: 09/22/2022 PROCEDURE COMMENTS: Frontal and lateral views of the chest. FINDINGS: Cardiovascular structures within normal limits. No pneumoniaor effusion. No pneumothorax. IMPRESSION: No acute finding. - Note: Radiology results need to be interpreted within a comprehensiveclinical context. If you have questions about the radiology report, please contactthe office of the ordering clinician. Jose Ramon Infante APRN IMG DIAGNOSTIC IMAGING ORDE RABCONG Final Result * POCT DEVAN SARS ANTIGEN (09/23/2023 9:55 AM EST) [facility] SARS Antigen Negative Negative [facility] [place] OFF[facility] Lot Number [id number] SEP OFFICE Expiration Date 06/20/24 SEP OFFICE SeriAl # SEP OFFICE Control Line Yes YES/NO SEP OFFICE 09/23/2023 9:55 AM EST Result [facility] Michaela Landon MD POINT OF CARE TEST ORDERABL ES Final Result [facility] [place] OFF[facility] * (ABNORMAL) MOLECULAR VAGINITIS PANEL (MVP) (06/21/2023 11:51 AM EDT) [facility] Bacterial Vaginosis Not Detected Not Detected 06/22/2023 12:52 PM EDT PREFERRED [employer] Comment:Normal/Balanced vagi nal microbiome. Nakaseomyces glabrata (previously Geneva glabrata) Detected(A) Not Detected 06/22/2023 12:52 PM EDT [facility] Comment:C. glabrata is often RESISTANT TO AZOLE ANTIFUNGAL AGENTS - FLUCONAZOLE. Geneva group Not Detected Not Detected 06/22/2023 12:52 PM EDT [employer], [employer] Comment:C. albicans, C. trop icalis, C. parapsilosis, and/or C. dubliniensis NOT detected. [place] krusei Not Detected Not Detected 06/22/2023 12:52 PM EDT PREFERRED [facility] Trichomonas vaginalis Not Detected Not Detected 06/22/2023 12:52 PM EDT [facility] [employer], [employer] Swab SPECIMEN FROM VAGINA / Unknown 06/21/2023 11:51 AM EDT 06/21/2023 11:51 AM EDT Narrative [employer] [facility] - 06/22/2023 12:52 PM EDT Test performed using the [employer] MAX Vaginal Panel, a real-time polymerase chain (PCR) molecular nucleic acid amplification test. Malinda Patterson MD MICROBIOLOGY - GENERAL ORDERABLES Final Result Performing Organization Address [facility] Phone Number [facility] [employer] [address] , [place] [address] * TSH REFLEX (12/22/2022 10:18 AM EST) Only the most recent of11 resultswithin the time period is included. Pathologist [facility] TSH Reflex 3.630 0.270 - 4.200 mcIU/mL 12/22/2022 3:05 PM EST [facility] Blood VENOUS BLOOD / Unknown Venipuncture / Unknown 12/22/2022 10:18 AM EST 12/22/2022 10:20 AM EST Narrative [facility] - 12/22/2022 3:05 PM EST Ingestion of tabatha doses of biotin (>5 mg/day) taken within 8 hours of drawing blood sample can interfere with this immunoassay test. Malinda Patterson MD CHEMISTRY ORDERABLES Fi nal Result Performing Organization Address [facility] Phone Number [facility] [employer] , [place] [address] * POCT URINE MICROALBUMIN TELCOR (12/22/2022 9:54 AM EST) Only the most recent of2 resultswithin the time period is included. Micro[employer], Ur 30 mg/L 12/22/2022 9:57 AM EST [facility] Creatinine Urine 200 mg/dL 12/22/2022 9:57 AM EST [facility] [employer]/Unscrambler. Ratio <30 <30 mg/g 12/22/2022 9:57 AM EST [facility] Urine URINE SPECIMEN COLLECTION / Unknown 12/22/2022 9:54 AM EST 12/22/2022 9:57 AM EST us Malinda Patterson MD POINT OF CARE TEST ORDSwathi DAVCONG Final Result Performing Organization Address [facility] Co de Phone Number [facility]FILO FROST [address] [place] [address] * INTRAOP AIRWAY PLACEMENT (10/21/2022 1:35 PM EST) Narrative [facility] - 10/21/2022 1:35 PM EST Darryn Choe, CALL OR CONTACT CENTRE MANAGER 10/21/2022 1:36 PM Intraop Airway Placement: Date/Time: 10/21/2022 1:35 PM Airway type: Nasal cannula salter us Lacy Shaw MD GA ANESTHESIA Edited Re sult - Final Performing Organization Address [facility] de Phone Number [facility] [address] [place] [address] * GMED COLONOSCOPY (10/21/2022 1:20 PM EST) 10/21/2022 1:20 PM EST Impressions [facility] - 10/21/2022 1:52 PM EST Stool in the mid-transverse colon, hepatic flexure, ascending colon and cecum. Plan: - Poor prep in the right colon with solid stool - Repeat colonoscopy in 1 year This section is an excerpt of the full report. us Nicolas Rowland MD GI PROCEDURE ORDERABLES Deana l Result Performing Organization Address [facility] Co de Phone Number [facility] [address] [place], [place] [id number] * IRIS DIABETIC RETINOPATHY EXAM (10/06/2022 10:12 AM EST) Retinopathy Exam Severity NORMAL SE LAB Right Diabetic Retinopathy None SE LAB Right Macular Edema None SE LAB Right Other Retina None SE LAB Right Eye Image Quality Gradable Image [facility] Left Diabetic Retinopathy None SE LAB Left Macular Edema None SE LAB Left Other Retina None [facility] Left Eye Image Quality Gradable Image [facility] 10/06/2022 10:1 2 AM EST 10/06/2022 10:12 AM EST Impressions [facility] - 10/06/2022 2:05 PM EST Retinal Study Result for KRISTIN ESPINOZA, a 52 y/o, F (: 1970, ) presented to [facility] on 10-06-2022 for a retinal imaging study of the left and right eyes. Based on the findings of the study, the following is recommended for KRISTIN ESPINOZA Normal Study: Return for follow up exam in 12 months or next calendar year. Interpreting Provider's Comments: No comments provided Diagnoses Present: E119 - Type 2 diabetes mellitus without complications Right eye findings: Negative for Diabetic Retinopathy Negative for Macular Edema Left eye findings: Negative for Diabetic Retinopathy Negative for Macular Edema This result was electronically signed by Jacqueline English MD; ; Taxonomy: [id number] on 10-07-2022 01:[address] [facility]. NOTE: Any pathology noted on this diabetic retinal evaluation should be confirmed by an appropriate ophthalmic examination. Malinda Patterson MD OPHTHALMOLOGY SERVICES ORDERABLES Final Result [facility] [address] [place] [id number] * (ABNORMAL) VITAMIN D 25 HYDROXY (06/28/2022 11:56 AM EDT) Vit D 25 OH 18.9(L) 30.0 - 150.0 ng/mL 06/28/2022 7:38 PM EDT PREFERRED [employer] Comment: Preferred: >= 30 ng/mL Insufficient: 21-29 ng/mL Deficient <= 20 ng/mL Possible Toxicity: >150 ng/mL Samples should not be taken from patients receiving therapy with high biotin doses (i.e. > 5 mg/day) until at least 8 hours following the last biotin administration. Blood VENOUS BLOOD / Unknown Venipuncture / Unknown 06/28/2022 11:56 AM EDT 06/28/2022 11:56 AM EDT us Malinda Patterson MD CHEMISTRY ORDERABLES Fi nal Result [facility] [address] [place] [address], [place] [address] * CT HEAD WO CONTRAST (12/18/2021 7:46 PM EST) Anatomical Region Laterality Modality Head Computed Tomogra phy 12/18/2021 7:46 PM EST Impressions 12/18/2021 8:02 PM EST No acute intracranial abnormality. - Note: Radiology results need to be interpreted within a comprehensive clinical context. If you have questions about the radiology report, please contact the office of the ordering clinician. Narrative 12/18/2021 8:[address] HEAD WO CONTRAST 12/18/2021 7:46 PM CLINICAL HISTORY: -syncope, dizziness. COMPARISON: Brain MRI 03/27/2021 PROCEDURE COMMENTS: Routine noncontrast head CT with multiplanar reconstructions. Dose 1 : CT DLP Total : 942.05 mGycm DLP Spiral Max : 939.88 mGycm Maximum CTDI Vol : 54.26 mGy FINDINGS: Ventricular size and configuration normal. No evidence of acute stroke, mass, or hemorrhage. No evidence of fracture or extra-axial collection. Included paranasal sinuses, mastoids, and orbits unremarkable. Procedure Note Gilberto Hunter MD - 12/18/2021 CT HEAD WO CONTRAST 12/18/2021 7:46 PM CLINICAL HISTORY: -syncope, dizziness. COMPARISON: Brain MRI 03/27/2021 PROCEDURE COMMENTS: Routine noncontrast head CT with multiplanar reconstructions. Dose 1 : CT DLP Total : 942.05 mGycm DLP Spiral Max : 939.88 mGycm Maximum CTDI Vol : 54.26 mGy FINDINGS: Ventricular size and configuration normal. No evidence of acute stroke,mass, or hemorrhage. No evidence of fracture or extra-axial collection. Included paranasal sinuses, mastoids, and orbits unremarkable. IMPRESSION: No acute intracranial abnormality. - Note: Radiology results need to be interpreted within a comprehensiveclinical context. If you have questions about the radiology report, please contactthe office of the ordering clinician. us Dev Sam MD IMG CT ORDERABLES Final Resul t * CORONAVIRUS 2019 (12/18/2021 6:44 PM EST) [facility] CORONAVIRUS [id number] Not Detected Not Detected 12/18/2021 7:08 PM EST [facility] Comment: Caution should be exercised when interpreting a result of 'Not Detected'. A result of 'Not Detected' does not rule out COVID-19 and cannot be used as sole basis for treatment or patient management decisions. If COVID-19 is still suspected following a 'Not Detected' result, re-testing should be considered. This test is a real-time RT-PCR test intended for the qualitative detection of nucleic acid from the SARS-CoV-2 in upper respiratory samples collected from individuals suspected of COVID-19. Not Detected results do not preclude COVID-19 or other respiratory viruses and should not be used as the sole basis for treatment or other patient management decisions. PABLITO Fact Sheet for Providers and Patients: PABLITO Fact Sheet for Providers: https://www.fda.gov/media/407842/download PABLITO Fact Sheet for Patients: https://www.fda.gov/media/073685/download Test is performed on the [employer] PABLITO platform under the FDA's Emergency Use Authorization (EUA). Performed at [address] [address] CLIA [id number] Swab BOTH ANTERIOR NARES / Unknown 12/18/2021 6:44 PM EST 12/18/2021 6:47 PM EST us Dev Sam MD MICROBIOLOGY - GENERAL ORDERA BLES Final Result [facility] [address] [place] [id number] * (ABNORMAL) C-REACTIVE PROTEIN (09/25/2021 6:25 AM EST) Only the most recent of2 resultswithin the time period is included. [facility] CRP 58.14(H) <=5.00 mg/L 09/25/2021 9:54 AM EST [facility] [employer] Blood VENOUS BLOOD / Unknown Venipuncture / Unknown 09/25/2021 6:25 AM EST 09/25/2021 7:33 AM EST us Latonya Washington MD CHEMISTRY ORDERABLES Final Re sult [facility] [employer] [address] [place] [address] , [place] [address] * CT ANGIOGRAM PULMONARY W CONTRAST (09/24/2021 8:56 PM EST) Anatomical Region Laterality Modality Chest Computed Tomogra phy 09/24/2021 8:56 PM EST Impressions 09/24/2021 9:22 PM EST This is a nondiagnostic study for the presence of a pulmonary embolus. Only a small amount of contrast is present in the pulmonary arteries, limiting the study. A second injection and scan of the chest was performed , but with the same outcome. There is multifocal airspace opacity in a peripheral and subpleural distribution. This is a typical pattern for Covid pneumonia. - Note: Radiology results need to be interpreted within a comprehensive clinical context. If you have questions about the radiology report, please contact the office of the ordering clinician. Narrative 09/24/2021 9:[address] PULMONARY ANGIOGRAM, 09/24/2021 8:56 PM CLINICAL HISTORY: -PE suspected, high pretest prob. Covid positive. COMPARISON: Portable chest x-ray, dated 09/24/2021. TECHNIQUE: PE protocol CT angiogram of the chest using Isovue 370 IV contrast as recorded in [employer]. 2-D multiplanar reconstructions and 3-D MIP reconstructions reviewed. The patient is scanned twice and reinjected. Dose 1 : CT DLP Total : 1063.88 mGycm DLP Spiral Max : 524.81 mGycm Maximum CTDI Vol : 17.1 mGy FINDINGS: The trachea and central airways are patent and normal caliber. There is no pneumothorax. There are no pleural effusions. There is peripheral airspace opacity throughout both lungs. This is evenly distributed throughout the upper and lower lobes. There is no suspicious pulmonary nodule or mass. The thyroid gland is normal. The esophagus is normal. The thoracic aorta is normal caliber. There is no pericardial effusion. There is no axillary or mediastinal lymphadenopathy. There is poor contrast filling of the pulmonary arteries on the initial scan. The patient was re-imaged and reinjected with contrast. There was still a suboptimal amount of contrast within the pulmonary arteries. Evaluation of the pulmonary arteries is nondiagnostic. The upper abdomen is normal. Bone windows demonstrate no suspicious osteoblastic or osteolytic lesions. Coronary artery calcification: None. Procedure Note Jaquelin Weston MD - 09/24/2021 CT PULMONARY ANGIOGRAM, 09/24/2021 8:56 PM CLINICAL HISTORY: -PE suspected, high pretest prob. Covid positive. COMPARISON: Portable chest x-ray, dated 09/24/2021. TECHNIQUE: PE protocol CT angiogram of the chest using Isovue 370 IVcontrast as recorded in [employer]. 2-D multiplanar reconstructions and 3-D MIP reconstructions reviewed. The patient is scanned twice and reinjected. Dose 1 : CT DLP Total : 1063.88 mGycm DLP Spiral Max : 524.81 mGycm Maximum CTDI Vol : 17.1 mGy FINDINGS: The trachea and central airways are patent and normal caliber.There is no pneumothorax. There are no pleural effusions. There is peripheralairspace opacity throughout both lungs. This is evenly distributed throughout theupper and lower lobes. There is no suspicious pulmonary nodule or mass. The thyroid gland is normal. The esophagus is normal. The thoracic aortais normal caliber. There is no pericardial effusion. There is no axillaryor mediastinal lymphadenopathy. There is poor contrast filling of thepulmonary arteries on the initial scan. The patient was re-imaged and reinjectedwith contrast. There was still a suboptimal amount of contrast within thepulmonary arteries. Evaluation of the pulmonary arteries is nondiagnostic. The upper abdomen is normal. Bone windows demonstrate no suspicious osteoblastic or osteolyticlesions. Coronary artery calcification: None. IMPRESSION: This is a nondiagnostic study for the presence of a pulmonary embolus.Only a small amount of contrast is present in the pulmonary arteries, limitingthe study. A second injection and scan of the chest was performed , but withthe same outcome. There is multifocal airspace opacity in a peripheral and subpleural distribution. This is a typical pattern for Covid pneumonia. - Note: Radiology results need to be interpreted within a comprehensiveclinical context. If you have questions about the radiology report, please contactthe office of the ordering clinician. us Latonya Washington MD IMG CT ORDERABLES Final Resul t * REPEAT LACTIC ACID (09/24/2021 7:35 AM EST) Only the most recent of3 resultswithin the time period is included. Pathologist [facility] Lactic Acid 0.9 0.5 - 1.9 mmol/L 09/24/2021 8:04 AM EST [facility] Blood VENOUS BLOOD / Unknown Venipuncture / Unknown 09/24/2021 7:35 AM EST 09/24/2021 7:47 AM EST us Golden Rodriguez MD CHEMISTRY ORDERABLES Final Result Performing Organization Address [facility] de Phone Number [employer] [address] [place] [address] , [place] [id number] * BLOOD CULTURE (NO STAIN) (09/24/2021 4:59 AM EST) Only the most recent of6 resultswithin the time period is included. [facility] Culture Result No Growth at 120 hours. BLOOD CULTURE (NO STAIN) 09/29/2021 10:00 AM EST [facility] Blood VENOUS BLOOD / Unknown Venipuncture / Unknown 09/24/2021 4:59 AM EST 09/24/2021 5:06 AM EST us Golden Rodriguez MD MICROBIOLOGY - GENERAL [facility] Final Result Performing Organization Address [facility] Co de Phone Number [facility] [address] [place] [address] , [place] [address] * PROCALCITONIN (09/24/2021 4:50 AM EST) Only the most recent of2 resultswithin the time period is included. Pathologist [facility] Procalcitonin 0.13 <=0.49 ng/mL 09/24/2021 5:33 AM EST [facility] [employer] [facility] Blood VENOUS BLOOD / Unknown Venipuncture / Unknown 09/24/2021 4:50 AM EST 09/24/2021 5:05 AM EST Narrative PREFERRED [employer] [facility] - 09/24/2021 5:33 AM EST Procalcitonin <0.50 ng/mL: Procalcitonin levels below 0.50 ng/mL on the first day of ICU admission represent a low risk for progression to severe sepsis and/or septic shock Procalcitonin >=0.50 ng/mL and <=2.00 ng/mL: If the procalcitonin measurement is performed shortly after the systemic infection process has started (usually less than 6 hours), this value may still be low. As various non-infectious conditions are known to induce procalcitonin as well, procalcitonin levels between 0.50 ng/mL and 2.00 ng/mL should be reviewed carefully to take into account the specific clinical background and condition(s) of the patient. Procalcitonin >2.00 ng/mL: Procalcitonin levels above 2.00 ng/mL on the first day of ICU admission represent a high risk for progression to severe sepsis and/or septic shock. us Golden Rodriguez MD CHEMISTRY ORDERABLES Final Result [facility] [employer] [facility] [address] [facility], [place] [address] * (ABNORMAL) BLOOD GAS, VENOUS (09/24/2021 2:39 AM EST) Only the most recent of2 resultswithin the time period is included. pH Venous 7.38 7.32 - 7.42 pH 09/24/2021 2:50 AM EST [facility] [employer], [facility] pCO2 Venous 45 41 - 51 mmHg 09/24/2021 2:50 AM EST [facility] [employer], [facility] pO2 Venous <42(H) 25 - 40 mmHg 09/24/2021 2:50 AM EST [facility] [employer], [facility] Comment:The peripheral venou s blood gas oxygen level (PvO2) is not clinically useful and PvO2 levels <42 mmHg in venous blood gases are below the analytical measuring range for our blood gas instrumentation. Base Excess Shekhar 0.8 mmol/L 2:50 AM EST [facility], [facility] Hco3 Venous 25.6 24.0 - 28.0 mmol/L 09/24/2021 2:50 AM EST [facility] CO2 Total Shekhar 24(L) 25 - 29 mmol/L 09/24/2021 2:50 AM EST [facility] O2 Sat. Venous 36.1(L) 40.0 - 70.0 % 09/24/2021 2:50 AM EST [facility] Blood VENOUS BLOOD / Unknown Venipuncture / Unknown 09/24/2021 2:39 AM EST 09/24/2021 2:45 AM EST us Golden Rodriguez MD CHEMISTRY ORDERABLES Final Result Performing Organization Address [facility] Co de Phone Number [address] , [place] [phone] * FERRITIN (09/24/2021 2:39 AM EST) Pathologist [facility] Ferritin 116 13 - 150 ng/mL 09/24/2021 6:04 AM EST [facility] Blood VENOUS BLOOD / Unknown Venipuncture / Unknown 09/24/2021 2:39 AM EST 09/24/2021 2:50 AM EST Narrative [facility] - 09/24/2021 6:04 AM EST Ingestion of tabatha doses of biotin (>5 mg/day) taken within 8 hours of drawing blood sample can interfere with this immunoassay test. us Golden Rodriguez MD CHEMISTRY ORDERABLES Final Result Performing Organization Address [facility] Co de Phone Number [address] , [place] [address] * (ABNORMAL) CORONAVIRUS 2019 POCT (09/21/2021 2:06 AM EST) COV19 RNA POCT Positive(A A) Negative 09/21/2021 2:31 AM EST [facility] Swab NASAL / Unknown 09/21/2021 2 :06 AM EST 09/21/2021 2:13 AM EST Narrative [facility] - 09/21/2021 2:31 AM EST The ID NOW is an isothermal nucleic acid amplification assay used to detect nucleic acid from SARS-CoV-2 viral RNA and is intended for use under FDA Emergency Use Authorization only. Negative results do not preclude SARS-CoV-2 infection and should not be used as the sole basis for patient management decisions. Negative results must be combined with clinical observations, patient history, and epidemiological information. Recommend confirmation using alternate method if a negative result is inconsistent with clinical signs and symptoms or if necessary for patient management. [facility] ID NOW Provider Fact Sheet: https://www.fda.gov/media/058765/download [facility] Patient Fact Sheet: https://www.fda.gov/media/664619/download us Dc Sherman MD MICROBIOLOGY - GENERAL [facility] Final Result [facility] [address] [place] [address] * EC ECHOCARDIOGRAM COMPLETE WITH BUBBLE STUDY (03/28/2021 12:06 PM EDT) [facility] Signature Ejection Fraction 60-65 % PYRAMIS Anatomical Region Laterality Modality Electrocardiogra phy 03/28/2021 11:0 7 AM EDT Impressions 03/28/2021 5:41 PM EDT CONCLUSIONS Two agitated saline contrast studies were performed to rule out ASD/PFO. No evidence of interatrial shunting was found. EF 60-65%. Mild concentric hypertrophy. Right ventricular dilatation. Mild pulmonic regurgitation. Narrative Procedure Note Sarkis Wakefield MD - 03/28/2021 IMPRESSION CONCLUSIONS Two agitated saline contrast studies were performed to rule out ASD/PFO.No evidence of interatrial shunting was found. EF 60-65%. Mild concentric hypertrophy. Right ventricular dilatation. Mild pulmonic regurgitation. us Shar Sandhu MD IMG ECHO ORDERABLES Final Re sult * CT ANGIOGRAM CORONARY W CONTRAST (03/27/2021 6:30 PM EDT) Only the most recent of2 resultswithin the time period is included. Anatomical Region Laterality Modality Chest Computed Tomogra phy 03/27/2021 6:30 PM EDT Impressions 03/27/2021 6:40 PM EDT Limited study. Motion precludes detailed evaluation of luminal integrity. No coronary artery shows complete occlusion. - Note: Radiology results need to be interpreted within a comprehensive clinical context. If you have questions about the radiology report, please contact the office of the ordering clinician. Narrative 03/27/2021 6:[address] CORONARY ANGIOGRAM, 03/27/2021 6:30 PM CLINICAL HISTORY: -Chest pain, nonspecific. COMPARISON: None. PROCEDURE COMMENTS: Heart rate control using Metoprolol as documented in EPIC. 0.4mg of SL NTG given if not contraindicated. Approx. 75 mL Isovue 370 intravenous contrast material. CCTA prospective ECG-gated technique for coronary artery visualization. Interactive 3-D postprocessing done by the reviewing physician on a [employer] workstation, with one or more of the following: Maximum intensity projections (MIPS), Shaded surface rendering, and/or Volume rendering. Porter images archived to PACS. Automated exposure control for dose reduction was used. CTDIvol: .6 - 46.7 mGy. DLP: 723 mGy-cm. FINDINGS: The study is suboptimal. There is significant motion artifact. The examination shows a relatively normal-appearing left main coronary artery. There is either motion artifact or stenosis in the mid LAD and there are scattered calcifications present, but the luminal quality is poorly visualized. The circumflex is patent, with no definite stenotic lesions identified. The RCA shows multifocal calcifications but there is significant motion degradation precluding detailed assessment of the amount of narrowing. The right coronary system is dominant. The aortic valves are unremarkable. There is no thrombus identified within the left atrial appendage. There are no significant extracardiac lesions identified. Procedure Note Dc Boo MD - 03/27/2021 CT CORONARY ANGIOGRAM, 03/27/2021 6:30 PM CLINICAL HISTORY: -Chest pain, nonspecific. COMPARISON: None. PROCEDURE COMMENTS: Heart rate control using Metoprolol as documented inEPIC. 0.4mg of SL NTG given if not contraindicated. Approx. 75 mL Isovue 370 intravenous contrast material. CCTA prospective ECG-gated technique forcoronary artery visualization. Interactive 3-D postprocessing done by thereviewing physician on a [employer] workstation, with one or more of the following:Maximum intensity projections (MIPS), Shaded surface rendering, and/or Volumerendering. Porter images archived to PACS. Automated exposure control for dosereduction was used. CTDIvol: .6 - 46.7 mGy. DLP: 723 mGy-cm. FINDINGS: The study is suboptimal. There is significant motion artifact. The examination shows a relatively normal-appearing left main coronaryartery. There is either motion artifact or stenosis in the mid LAD and there are scattered calcifications present, but the luminal quality is poorlyvisualized. The circumflex is patent, with no definite stenotic lesions identified. The RCA shows multifocal calcifications but there is significant motion degradation precluding detailed assessment of the amount of narrowing. The right coronary system is dominant. The aortic valves are unremarkable.There is no thrombus identified within the left atrial appendage. There are no significant extracardiac lesions identified. IMPRESSION: Limited study. Motion precludes detailed evaluation of luminal integrity. No coronary artery shows complete occlusion. - Note: Radiology results need to be interpreted within a comprehensiveclinical context. If you have questions about the radiology report, please contactthe office of the ordering clinician. Earnestine Joe NP IMG CT ORDERABLES Final Resul t * MRI BRAIN WO CONTRAST (03/27/2021 8:26 AM EDT) Anatomical Region Laterality Modality Head Magnetic Resonan ce 03/27/2021 8:26 AM EDT Impressions 03/27/2021 9:50 AM EDT No acute abnormality. - Note: Radiology results need to be interpreted within a comprehensive clinical context. If you have questions about the radiology report, please contact the office of the ordering clinician. Narrative 03/27/2021 9:50 AM EDT MRI BRAIN WITHOUT CONTRAST, 03/27/2021 8:26 AM CLINICAL HISTORY: -Left sided numbness, speech change. Suspected CVA/TIA. COMPARISON: None. PROCEDURE COMMENTS: Multiplanar multiecho MR imaging of the brain including standard spin echo and diffusion sequences. FINDINGS: Midline structures normally formed. Ventricles normal. No evidence of acute stroke, mass, or hemorrhage. Normal diffusion imaging. Major vascular flow voids preserved, suggesting patency. Included portions of the paranasal sinuses, mastoids, and orbits unremarkable. Procedure Note Nick Ortega III, MD - 03/27/2021 MRI BRAIN WITHOUT CONTRAST, 03/27/2021 8:26 AM CLINICAL HISTORY: -Left sided numbness, speech change. Suspected CVA/TIA. COMPARISON: None. PROCEDURE COMMENTS: Multiplanar multiecho MR imaging of the brainincluding standard spin echo and diffusion sequences. FINDINGS: Midline structures normally formed. Ventricles normal. No evidence ofacute stroke, mass, or hemorrhage. Normal diffusion imaging. Major vascular flowvoids preserved, suggesting patency. Included portions of the paranasal sinuses, mastoids, and orbitsunremarkable. IMPRESSION: No acute abnormality. - Note: Radiology results need to be interpreted within a comprehensiveclinical context. If you have questions about the radiology report, please contactthe office of the ordering clinician. us Shar Sandhu MD IMG MRI ORDERABLES Final Res ult * CT ANGIOGRAM HEAD AND NECK STROKE PROTOCOL (03/26/2021 3:53 PM EDT) Anatomical Region Laterality Modality Head Computed Tomogra phy 03/26/2021 3:53 PM EDT Impressions 03/26/2021 4:18 PM EDT No large vessel occlusion, dissection, or aneurysm identified. - Note: Radiology results need to be interpreted within a comprehensive clinical context. If you have questions about the radiology report, please contact the office of the ordering clinician. NASCET criteria used for estimates of stenosis. This scan was analyzed using Viz ContaCT (Viz LVO), using AI-based computer-aided triage to detect the presence of a suspected large vessel occlusion (LVO). Narrative 03/26/2021 4:18 PM EDT CTA HEAD AND NECK WITH CONTRAST, STROKE PROTOCOL, 03/26/2021 3:53 PM CLINICAL HISTORY: -Neuro deficit, acute, stroke suspected. COMPARISON: CT head stroke protocol March 26, 2021. PROCEDURE COMMENTS: Following the intravenous administration of 75 mL Isovue 370, multi-detector helical scanning performed and multiplanar reconstructions generated per protocol. Review included 3D MIP reconstructions. Automatic exposure control utilized for dose reduction. FINDINGS: CTA NECK: ARCH: There is incidental bovine configuration of the arch, with the left carotid arising from the brachiocephalic artery. The arch is otherwise unremarkable although there is motion artifact in the upper chest. No subclavian stenosis identified. RIGHT CAROTID SYSTEM: Patent extracranial segments. No stenosis by NASCET criteria. No dissection. LEFT CAROTID SYSTEM: Patent extracranial segments. No stenosis by NASCET criteria. No dissection. VERTEBRAL ARTERIES: Patent extracranial segments. No dissection. CTA HEAD: No occlusion or flow limiting stenosis of the central intracranial circulation. No aneurysm. OTHER: Visualized lung apices are clear. No neck mass or suspicious lymph nodes. Visible skeleton intact. Procedure Note Dc Boo MD - 03/26/2021 CTA HEAD AND NECK WITH CONTRAST, STROKE PROTOCOL, 03/26/2021 3:53 PM CLINICAL HISTORY: -Neuro deficit, acute, stroke suspected. COMPARISON: CT head stroke protocol March 26, 2021. PROCEDURE COMMENTS: Following the intravenous administration of 75 mLIsovue 370, multi-detector helical scanning performed and multiplanarreconstructions generated per protocol. Review included 3D MIP reconstructions.Automatic exposure control utilized for dose reduction. FINDINGS: CTA NECK: ARCH: There is incidental bovine configuration of the arch, with theleft carotid arising from the brachiocephalic artery. The arch is otherwise unremarkable although there is motion artifact in the upper chest. Nosubclavian stenosis identified. RIGHT CAROTID SYSTEM: Patent extracranial segments. No stenosis byNASCET criteria. No dissection. LEFT CAROTID SYSTEM: Patent extracranial segments. No stenosis by NASCET criteria. No dissection. VERTEBRAL ARTERIES: Patent extracranial segments. No dissection. CTA HEAD: No occlusion or flow limiting stenosis of the centralintracranial circulation. No aneurysm. OTHER: Visualized lung apices are clear. No neck mass or suspicious lymphnodes. Visible skeleton intact. IMPRESSION: No large vessel occlusion, dissection, or aneurysm identified. - Note: Radiology results need to be interpreted within a comprehensiveclinical context. If you have questions about the radiology report, please contactthe office of the ordering clinician. NASCET criteria used for estimates of stenosis. This scan was analyzed using Viz ContaCT (Viz LVO), using AI-based computer-aided triage to detect the presence of a suspected large vessel occlusion (LVO). us Starla Harris MD [facility] CT ORDERABLES Final Res ult * CT HEAD STROKE PROTOCOL (03/26/2021 3:48 PM EDT) Anatomical Region Laterality Modality Head Computed Tomogra phy 03/26/2021 3:48 PM EDT Impressions 03/26/2021 4:01 PM EDT No acute intracranial abnormality identified. To expedite care, porter exam findings were urgently telephoned to Dr. Michelle Harris by Dr. Doll at approximately 03/26/2021 4:00 PM. Code STROKE Narrative 03/26/2021 4:[address] HEAD STROKE PROTOCOL 03/26/2021 3:48 PM CLINICAL HISTORY: -Neuro deficit, acute, stroke suspected. Left-sided numbness. COMPARISON: None. PROCEDURE COMMENTS: Stroke protocol head CT. Multiplanar MIPS. FINDINGS: Normal ventricles. No evidence of acute stroke, mass, or hemorrhage. No fracture or extra-axial collection. No hyperdense vessel segments. Included portions of the paranasal sinuses, mastoids, and orbits unremarkable. Procedure Note Siddhartha Doll MD - 03/26/2021 CT HEAD STROKE PROTOCOL 03/26/2021 3:48 PM CLINICAL HISTORY: -Neuro deficit, acute, stroke suspected. Left-sidednumbness. COMPARISON: None. PROCEDURE COMMENTS: Stroke protocol head CT. Multiplanar MIPS. FINDINGS: Normal ventricles. No evidence of acute stroke, mass, or hemorrhage. Nofracture or extra-axial collection. No hyperdense vessel segments. Included portions of the paranasal sinuses, mastoids, and orbitsunremarkable. IMPRESSION: No acute intracranial abnormality identified. To expedite care, porter exam findings were urgently telephoned to Dr.Marlene Harris by Dr. Doll at approximately 03/26/2021 4:00 PM. Code STROKE us Starla Harris MD [facility] CT ORDERABLES Final Res ult * CT ABDOMEN PELVIS W CONTRAST (01/07/2021 10:43 AM EST) Anatomical Region Laterality Modality Abdomen, Chest, Pelvis, Hip Comp uted Tomography 01/07/2021 10:4 3 AM EST Impressions 01/07/2021 11:09 AM EST 1. No acute intra-abdominal pathology. No evidence of recurrent or new hernia. Narrative 01/07/2021 11:[address] ABDOMEN PELVIS W CONTRAST 01/07/2021 10:43 AM HISTORY: K43.2-Incisional hernia without obstruction or [id number]-CM PROCEDURE: CT abdomen pelvis with contrast. Comparison 07/03/2018. FINDINGS: The lung bases are unremarkable. The liver spleen pancreas adrenals and kidneys are unremarkable. No retroperitoneal or abdominal lymph node enlargement. Visualized small bowel and mesentery are unremarkable. There has been interval repair of supra umbilical hernia seen on the prior study. No evidence of recurrent or residual hernia. Procedure Note Jim Darden MD - 01/07/2021 CT ABDOMEN PELVIS W CONTRAST 01/07/2021 10:43 AM HISTORY: K43.2-Incisional hernia without obstruction [id number] PROCEDURE: CT abdomen pelvis with contrast. Comparison 07/03/2018. FINDINGS: The lung bases are unremarkable. The liver spleen pancreas adrenals andkidneys are unremarkable. No retroperitoneal or abdominal lymph node enlargement. Visualized small bowel and mesentery are unremarkable. There has beeninterval repair of supra umbilical hernia seen on the prior study. No evidenceof recurrent or residual hernia. IMPRESSION: 1. No acute intra-abdominal pathology. No evidence of recurrent or newhernia. Angela Merida MD IM CT ORDERABLES Final Result * CREATININE ISTAT (01/07/2021 10:38 AM EST) Creatinine-iST AT 0.7 0.6 - 1.3 mg/dL 01/07/2021 10:40 AM EST [facility] Blood BLOOD SPECIMEN / Unknown 01/07/2021 10:38 AM EST 01/07/2021 10:40 AM EST us Angela Merida MD POINT OF CARE TEST ORDERABLES Final Result [facility] [address] [id number] * MM MAMMO DIGITAL SCREENING W CAD BILAT (01/01/2021 1:09 PM EST) Only the most recent of6 resultswithin the time period is included. Anatomical Region Laterality Modality Breast Bilateral Mammography 01/01/2021 1:30 PM EST Impressions 01/01/2021 1:30 PM EST Negative ([id number]) ~ RECOMMENDATION: Routine screening mammogram in 1 year. ~ DISCLAIMER * Any patient with a palpable abnormality, unexplained by breast imaging, should be managed on clinical basis by the attending physician. * Breast imaging has a false negative rate of 15%. * The patient was notified by mail of the results of this examination. *The patient's information was entered into a reminder system with a target due date for the next mammogram, in accordance with the [employer] and the Society of Breast Imaging recommendations. The mammogram was reviewed by a Radiologist and CAD. Narrative 01/01/2021 1:30 PM EST Procedure:MM MAMMO DIGITAL SCREENING W CAD BILAT ~ Reason for exam: screening, asymptomatic. Z12.31-Encounter for screening mammogram for malignant neoplasm of [id number]-VQW-50-CM Performed by: RT Ricci ~ MM MAMMO DIG SCREEN CAD BILAT Bilateral CC and MLO view(s) were taken. Technologist: RT Ricci There are scattered fibroglandular densities. Prior study comparison: Compared with prior studies the most recent being 02/14/19, 01/18/18 No suspicious mass, architectural distortion, or microcalcifications. No mammographic evidence of malignancy. ~ Procedure Note Cuba Coronel MD - 01/01/2021 Procedure:MM MAMMO DIGITAL SCREENING W CAD BILAT ~ Reason for exam: screening, asymptomatic. Z12.31-Encounter for screening mammogram for malignant neoplasm of [id number]-WFV-24-CM Performed by: RT Ricci ~ MM MAMMO DIG SCREEN CAD BILAT Bilateral CC and MLO view(s) were taken. Technologist: Lizeth Taylor RT There are scattered fibroglandular densities. Prior study comparison: Compared with prior studies the most recentbeing 02/14/19, 01/18/18 No suspicious mass, architectural distortion, or microcalcifications. No mammographic evidence of malignancy. ~ IMPRESSION: Negative ([id number]) ~ RECOMMENDATION: Routine screening mammogram in 1 year. ~ DISCLAIMER * Any patient with a palpable abnormality, unexplained by breast imaging, should be managed on clinical basis by the attending physician. * Breast imaging has a false negative rate of 15%. * The patient was notified by mail of the results of this examination. *The patient's information was entered into a reminder system with atarget due date for the next mammogram, in accordance with the [employer] and the Society of Breast Imaging recommendations. The mammogram was reviewed by a Radiologist and CAD. Malinda Patterson MD IMG MAMMOGRAPHY ORDERAB LES Final Result * POCT URINALYSIS AUTOMATED (11/12/2020 10:48 AM EST) Only the most recent of3 resultswithin the time period is included. 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 Grav, UA 1.030 1.001 - 1.035 G/DL SEP OFFICE Blood, UA neg POS/NEG SEP OFFICE pH, UA 5.5 5.0 - 8 SEP OFFICE Protein, UA neg POS/NEG SEP OFFICE Urobilinogen, UA 0.2 0.2 - 1.0 MG/DL SEP OFFICE Nitrite, UA neg POS/NEG SEP OFFICE Leukocytes, UA neg POS/NEG SEP OFFICE Appear BF SEP OFFICE Lot Number [id number] SEP OFFICE Expiration Date 02/05/2021 SEP OFFICE SeriAl # SEP OFFICE Urine 11/12/2020 10:4 8 AM EST Malinda Patterson MD POINT OF CARE TEST ORDE DAVCONG Final Result Performing Organization Address City/[facility] Co de Phone Number SEP OFFICE * POCT MICROALBUMIN (11/12/2020 10:48 AM EST) Only the most recent of8 resultswithin the time period is included. Microalb, Ur normal <=31 MG/L SEP OFFICE Lot Number [id number] SEP OFFICE Expiration Date 08/07/2021 SEP OFFICE SeriAl # SEP OFFICE Urine 11/12/2020 10:4 8 AM EST Malinda Patterson MD POINT OF CARE TEST ORDE GIL Final Result Performing Organization Address [facility] de Phone Number SEP OFFICE * XR FOOT LEFT AP LATERAL AND OBLIQUE (04/29/2020 2:36 PM EDT) Only the most recent of2 resultswithin the time period is included. Anatomical Region Laterality Modality Foot Radiographic Loan ging 04/29/2020 2:36 PM EDT Impressions 04/29/2020 4:09 PM EDT Moderate mid foot degenerative osteoarthritis. No fracture. Narrative 04/29/2020 4:09 PM EDT XR FOOT LEFT AP LATERAL AND OBLIQUE Clinical: M79.672-Pain in left [id number]-AIG-60-CM Procedure Note Jim Darden MD - 04/29/2020 XR FOOT LEFT AP LATERAL AND OBLIQUE Clinical: M79.672-Pain in left strg-DOI-70-CM IMPRESSION: Moderate mid foot degenerative osteoarthritis. No fracture. Bernadette Rangel BONE CHAR OPERATOR IMG DIAGNOSTIC IMAGING ORD ERABLES Final Result * (ABNORMAL) PDM, GABAPENTIN, QN, URINE-QUEST (05/31/2019 8:55 PM EDT) Gabapentin Lvl >[id number](H ) <1000 ng/mL [facility] Comment:See Note 1 COMMENTS [facility] Comment: See Note 3 Note 1 This test was developed and its analytical performance characteristics have been determined by [facility]. It has not been cleared or approved by the FDA. This assay has been validated pursuant to the CLIA regulations and is used for clinical purposes. Note 2 This drug testing is for medical treatment only. Analysis was performed as non-forensic testing and these results should be used only by healthcare providers to render diagnosis or treatment, or to monitor progress of medical conditions. medMATCH comments are: - present when drug test results may be the result of metabolism of one or more drugs or when results are inconsistent with prescribed medication(s) listed. - may be blank when drug results are consistent with prescribed medication(s) listed. For assistance with interpreting these drug results, please contact a [facility] Toxicology Specialist: [phone] ( ), M-F, 8am-6pm EST. Note 3 This drug testing is for medical treatment only. Analysis was performed as non-forensic testing and these results should be used only by healthcare providers to render diagnosis or treatment, or to monitor progress of medical conditions. For assistance with interpreting these drug results, please contact a [facility] Toxicology Specialist: [phone] ( ), M-F, 8am-6pm EST. 05/31/2019 8:55 PM EDT 06/01/2019 4:24 PM EDT Malinda Patterson MD [facility]-PDM ORDERABLE (NO N-SEH) Final Result [facility] [address] [place] [address] * HB-1 CUSTOM UDS PANEL-QUEST (05/31/2019 8:55 PM EDT) Prescribed Drug 1 Gabapentin [facility] [place] Ritalinic Acid NEGATIVE <100 ng/mL [facility] [place] [facility] Comment:See Note 1 medMATCH Ritalinic Acid CONSISTENT [facility] [place] medMatch Comments [facility] [place] Comment:See Note 2 Prescribed Drug 1 Gabapentin [facility] [place] 6-Acetylmorphine,GC /MS NEGATIVE <10 ng/mL [facility] [place] medMATCH 6 Acetylmorphine [facility]SISTENT [facility] Comments [facility] Comment:See Note 2 Prescribed Drug 1 Gabapentin [facility] Creatinine, Urine 129.7 > or = 20.0 mg/dL [facility] UA Spec Grav 1.025 > or = 1.003 [facility] UA pH 6.6 4.5 - 9.0 [facility] [place] Oxidant NEGATIVE <200 mcg/mL [facility] [place] Amphetamines NEGATIVE <500 ng/mL [facility] Amphetamines CONSISTENT [facility] Barbiturates NEGATIVE <300 ng/mL [facility] [place] medMATCH Barbiturates CONSISTENT [facility] Benzodiazepines NEGATIVE <100 ng/mL [facility] [place] medMATCH Benzodiazepines CONSISTENT [facility] Marijuana Metabolite NEGATIVE <20 ng/mL [facility] Marijuana Metab CONSISTENT [facility] Cocaine Metabolite NEGATIVE <150 ng/mL [facility] Cocaine Metab CONSISTENT [facility] Methadone NEGATIVE <100 ng/mL [facility] Methadone CONSISTENT [facility] Opiates NEGATIVE <100 ng/mL [facility]MATCH Opiates CONSISTENT [facility] Oxycodone NEGATIVE <100 ng/mL [facility]MATCH Oxycodone CONSISTENT [facility] medMatch Comments [facility] [place] Comment:See Note 2 05/31/2019 8:55 PM EDT 06/01/2019 4:24 PM EDT Malinda Patterson MD [facility]-PDM ORDERABLE (NO N-SEH) Final Result [email or web address] [address] [place] [phone] [facility] [address] [place] [address] * HPV HIGH RISK (02/26/2019 12:27 PM EDT) Only the most recent of2 resultswithin the time period is included. HPV HR Not Detected Not Detected 02/27/2019 2:47 AM EDT [facility] SPECIMEN FROM UTERINE CERVIX / Unknown 02/26/2019 12:27 PM EDT 02/26/2019 12:27 PM EDT Narrative PREFERRED [employer] - 02/27/2019 2:47 AM EDT This test was performed using the FDA Approved APTIMA HPV mRNA assay which detects E6/E7 messenger RNA of High Risk HPV types (16, 18, 31, 33, 35, 39, 45, 51, 52, 56, 58, 59, 66, and 68). This assay is intended for use in women 21 years or older with ASC-US cervical cytology or women 30 years or older. This assay is not intended to substitute for regular cervical cytology screening. Detection of HPV using the APTIMA HPV Assay does not differentiate HPV types and cannot evaluate persistence of any one type. The use of this assay has not been evaluated for the management of HPV vaccinated women, women with prior ablative or excisional therapy, hysterectomy, or who are . Sensitivities may be affected by collection methods, stage of infection, and the presence of interfering substances. Results of this assay should be interpreted in conjunction with other available laboratory and clinical data. Malinda Patterson MD MICROBIOLOGY - GENERAL ORDERABLES Final Result [facility] [address] [place] [address] , [place] [address] * HM DIABETES EYE EXAM (02/09/2019) Left Diabetic Retinopathy Not Present Present/Not Present SEP OFFICE Right Diabetic Retinopathy Not Present Present/Not Present SEP OFFICE Reena Linder OD HEALTH MAINTENANCE Final Re sult SEP OFFICE * TRICHOMONAS VAGINALIS BY TMA (02/07/2019 11:51 AM EDT) Trichomonas vaginalis by TMA Not Detected Not Detected 02/08/2019 2:46 AM EDT [facility] Thin Prep ENDOCERVICAL STRUCTURE / Unknown 02/07/2019 11:51 AM EDT 02/07/2019 11:51 AM EDT Narrative PREFERRED [employer] - 02/08/2019 2:46 AM EDT Test methodology is procurement specialist mediated amplification (TMA) using the Aptima Trichomonas vaginalis assay from [employer]. A negative result does not completely rule out a Trichomonas vaginalis infection due to potential inhibitors or levels present below the limit of detection of this assay. Results are dependent on proper collection and transport of specimen. This test is indicated for medical purposes only and should not be used for legal or forensic purposes. The assay has been cleared by the FDA to test the following specimens from symptomatic or asymptomatic women: clinician-collected endocervical swabs, clinician-collected vaginal swabs, and specimens collected in PreservCyt solution. Testing on first-catch male and female urine is not FDA-approved by this methodology; performance characteristics of the assay on these sample types were determined by [facility]. Malinda Patterson MD MICROBIOLOGY - GENERAL ORDERABLES Final Result [facility] [address] , [place] [address] * SMEAR REVIEW (06/28/2017 9:45 AM EDT) Only the most recent of3 resultswithin the time period is included. RBC Morph Microcytic [facility] Aniso Slight [facility] Poik Moderate [facility] Polychrom Slight [facility] Ovalocyte Moderate [facility] Acanthocyte Occasional [facility] [place] Cell Occasional [facility] Crenated Cell Moderate [facility] Teardrop Cell Occasional [facility] Blood specimen (specimen) 06/28/2017 9:45 AM EDT 06/28/2017 1:55 PM EDT Malinda Patterson MD HEMATOLOGY ORDERABLES F inal Result Performing Organization Address [facility] de Phone Number [facility] [address] [place] [address] * LDL, CALCULATED (06/28/2017 9:45 AM EDT) Only the most recent of7 resultswithin the time period is included. LDL Calculated 88 <=100 mg/dL [facility] Comment: < 100 Optimal 100 - 129 Near or above optimal 130 - 159 Borderline High 160 - 189 High >= 190 Very High Blood specimen (specimen) 06/28/2017 9:45 AM EDT 06/28/2017 1:54 PM EDT Malinda Patterson MD CHEMISTRY ORDERABLES Fi nal Result Performing Organization Address [facility] de Phone Number [facility] [address] [place] [address] * DIFFERENTIAL (06/28/2017 9:45 AM EDT) Only the most recent of17 resultswithin the time period is included. Pathologist [facility] Neut Percent 60.9 % [facility] Lymph Percent 31.5 % [facility] [place] Percent 4.7 % [facility] Eos Percent 2.4 % [facility] Baso Percent 0.5 % [facility] Neut# 6.4 1.8 - 7.7 x10(3)/mcL [facility] Lymph# 3.3 0.6 - 4.8 x10(3)/mcL [facility] [place]# 0.5 0.0 - 1.3 x10(3)/mcL [facility] Eos# 0.3 0.0 - 0.5 x10(3)/mcL [facility] Baso# 0.1 0.0 - 0.2 x10(3)/mcL [facility] Blood specimen (specimen) 06/28/2017 9:45 AM EDT 06/28/2017 1:55 PM EDT Malinda Patterson MD HEMATOLOGY ORDERABLES F inal Result [address] [address] * GMED COLONOSCOPY (01/18/2017 12:20 PM EDT) 01/18/2017 12:2 0 PM EDT us Malgorzata Hunt MD GI PROCEDURE ORDERABLES Final Result [facility] [address] [phone] * GMED COLONOSCOPY (01/18/2017 12:20 PM EDT) 01/18/2017 12:2 0 PM EDT Narrative [facility] - 01/18/2017 12:20 PM EDT [facility] [address] [place] [address] Colonoscopy Report Date: 01/18/2017 12:20 PM Patient Name: KRISTIN ESPINOZA Endoscopist(s): Malgorzata Hunt MD Gender: Female (age): 1970 (46) Instrument(s): C-10([id number]) Referring Physician: MALINDA PATTERSON MD [address] [facility], [place] [address] (phone) (fax) Anesthesia Provider: Nader Merida CRNA- [facility] (Nurse maintenance mechanic supervisor) Nurse(s): Jacqueline Heredia, RN, BSN (Intra-Procedure) Charity Monaco, HEATH (Pre-Procedure) Key Beltrán, RN, BSN (Post-Procedure) ASA Class: P3 - 01/18/2017 11:45 AM Nader Merida History of Present Illness: KRISTIN has been assessed and approved for moderate sedation. The History and Physical was reviewed and no changes were noted regarding medications, allergies or medical history. Administered Medications: lidocaine (PF) 40 mg IV propofol 300 mg IV Indications: Digestive Disorders, Family History-Father with Crohn's: V18.59 - Z83.79 Change in Bowel Habits: 787.99 - R19.4 Rectal Bleedin.3 - K62.5 Vital Signs: Weight (lbs/oz) Height (ft/in) BMI 293 / 5 / 2 53.58 BP (mmHg) Pulse (ppm) Rhythm Resp/min Temp SPO2 (%) 121/85 82 Regular 18 97.9 (F) 99 Physical Exam: Physical exam was performed on 01/04/2017 at 12:20 PM. Procedure: The procedure, indications, preparation and potential complications were explained to the patient, who indicated understanding and signed the corresponding consent forms. This is a/an average risk patient undergoing a Diagnostic colonoscopy. Prior colonoscopy was performed 06/24/2009 .. MAC with IV sedation was administered by a nurse maintenance mechanic supervisor / anesthesiologist. Continuous pulse oximetry, cardiac monitoring blood pressure and CO2 monitoring were performed. Supplemental oxygen was used. The quality of preparation was inadequate to identify polyps < 5 mm. Patient was placed in left lateral decubitus position. The colonoscope was introduced through the rectum and advanced under direct visualization until cecum and ileo-cecal valve was reached The ileo-cecal valve was identified.. The colonoscope was retroflexed within the rectum. Careful visualization was performed as the instrument was withdrawn. Patient tolerance to procedure was good. The procedure was not difficult. Digital rectal exam was normal Limitations/Complications: There were no apparent limitations or complications Findings: Mucosa Normal mucosa was noted in the whole colon. There were no AVMs, diverticula, polyps, masses, evidence of colitis or other abnormalities seen. Retroflexion of the scope in the rectum revealed no abnormalities. The prep was fair however and small lesions may have been missed. Multiple cold forceps biopsies were performed for histology. Impressions: Normal mucosa in the whole colon. (Biopsy). Plan: Follow up with Dr. Hunt in 1 month Colonoscopy in 5 years with 2 day prep. Continue home medications Maintain a high fiber diet Await biopsy results Samples: Jar # 1 : Biopsy in the whole colon Findings: Diarrhea, R/O Inflammation Test(s) requested: Histology Pathology: Pathology was sent to lab, waiting for results Malgorzata Hunt MD Electronically signed on 01/18/2017 12:47:08 PM by Malgorzata Hunt MD us Malgorzata Hunt MD GI PROCEDURE ORDERABLES Final Result [facility] [address] [phone] * PROGESTERONE LEVEL (09/12/2015 12:19 PM EST) Progesterone Lvl 1.18 ng/mL [facility] Comment: Suggested Reference Ranges (ng/mL) Follicular Phase 0.2 - 1.5 Luteal Phase 1.7 - 27.0 Postmenopause 0.1 - 0.8 Blood specimen (specimen) UPPER LIMB STRUCTURE / Unknown 09/12/2015 12:19 PM EST 09/12/2015 1:46 PM EST Malinda Patterson MD CHEMISTRY ORDERABLES Fi nal Result Performing Organization Address [facility] Co de Phone Number [facility] [address] [place] [address] * ESTRADIOL LEVEL (09/12/2015 12:19 PM EST) Estradiol Lvl 27 pg/mL [facility] Comment: Follicular phase 12.5 - 166 pg/mL Ovulation phase 85.8 - 498 pg/mL Luteal Phase 43.8 - 211 pg/mL Postmenopause 0 - 54.7 pg/mL Males 7.63 - 42.6 pg/mL Blood specimen (specimen) UPPER LIMB STRUCTURE / Unknown 09/12/2015 12:19 PM EST 09/12/2015 1:46 PM EST Malinda Patterson MD CHEMISTRY ORDERABLES Fi nal Result Performing Organization Address [facility] Co de Phone Number [facility] [address] [place] [address] * CK-MB (07/31/2015 1:56 PM EDT) Only the most recent of3 resultswithin the time period is included. [facility] CK MB <1.00 <=2.88 ng/mL [facility] Blood specimen (specimen) UPPER LIMB STRUCTURE / Unknown 07/31/2015 1:56 PM EDT 07/31/2015 2:15 PM EDT us Jhon Wagner DO CHEMISTRY ORDERABLES Final Resu lt Performing Organization Address [facility] Co de Phone Number [facility] [address] [place] [address] * PLATELET COUNT (07/31/2015 1:47 PM EDT) Platelet 377 144 - 423 x10(3)/mcL [facility] MPV 10.8 6.8 - 10.8 fL [facility] Blood specimen (specimen) UPPER LIMB STRUCTURE / Unknown 07/31/2015 1:47 PM EDT 07/31/2015 1:52 [address]T us Johnny [address] MD HEMATOLOGY ORDERABLES Final Result Performing Organization Address [facility] de Phone Number [facility] [address] [place] [address] * TROPONIN-T (07/03/2015 9:37 PM EDT) Only the most recent of2 resultswithin the time period is included. Pathologist [facility] Troponin-T <0.01 <=0.02 ng/mL [facility] Comment: < 0.03 No detectable myocardial injury 0.03 - 0.10 Possible myocardial injury > 0.10 Indicative of myocardial injury Blood specimen (specimen) 07/03/2015 9:37 PM EDT 07/03/2015 9:53 PM EDT us Dc Sherman MD CHEMISTRY ORDERABLES Final Result Performing Organization Address [facility] de Phone Number [facility] [address] [place] [address] * HCG QUALITATIVE (07/03/2015 7:56 PM EDT) Pathologist [facility] HCG QUAL Negative [facility] Blood specimen (specimen) 07/03/2015 7:56 PM EDT 07/03/2015 8:01 PM EDT us Dc Sherman MD CHEMISTRY ORDERABLES Edited Result - Final Performing Organization Address [facility]/ZIP Co de Phone Number [facility] [address] [place] [address] * [facility] CYTOLOGY REPORT (05/15/2015 9:23 PM EDT) Food And Beverage Order Clerk Cytology Report PATIENT NAME:KRISTIN ESPINOZA Food And Beverage Order Clerk Cytology Report Accession Number Collected Date/Time Received Date/Time [id number] 05/15/15 21:23 EDT 05/15/15 22:24 EDT GY Specimen Source Specimen Vag/Cerv/Endocx?: Cerv/Endocerv Statement of Adequacy Satisfactory for Evaluation. Transformation Zone Present. Diagnosis NEGATIVE FOR INTRAEPITHELIAL LESION OR MALIGNANCY Fungal Organisms Present Consistent with [place]. Comment Note: Concurrent High-Risk HPV mRNA testing is NEGATIVE. The Pap Smear is a screening test that aids in the detection of cervical cancer and cancer precursors. Both false positive and false negative results can occur. The test should be used at regular intervals, and positive results should be confirmed before definitive therapy. Processed using the Morpho TechnologiesPrep Drafting Layout Worker automated cytology screening device ([employer]). Carnallite Plant Operator: LINDA 05/19/2015 Completed by: HENRIETTA Ugarte (Electronically signed by) 05/19/2015 [facility] 05/15/2015 9:23 PM EDT us Malinda Patterson MD PATHOLOGY ORDERABLES Fi nal Result Performing Organization Address [facility] Co de Phone Number [facility] [address] [place] [address] * (ABNORMAL) POCT URINALYSIS DIPSTICK (12/02/2014 11:00 AM EST) Only the most recent of8 resultswithin the time period is included. Color, UA Clear, Yellow, [place], Rust SEP OFFICE Clarity, UA Clear, Cloudy SEP OFFICE Glucose, UA 500 g/dl% SEP [facility]ICE Bilirubin, UA sm+ Pos/Neg SEP OFFICE Ketones, UA neg Pos/Neg SEP aircraft structure mechanic Grav, UA 1.030 1.001 - 1.035 g/dl SEP OFFICE Blood, UA hemolyzed Pos/Neg SEP OFFICE pH, UA 6.0 5.0 - 8 SEP OFFICE Protein, UA 30+ Pos/Neg SEP OFFICE Urobilinogen, UA 2(A) 0.2 - 1.0 mg/dL SEP OFFICE Leukocytes, UA + Pos/Neg SEP OFFICE Nitrite, UA neg Pos/Neg SEP OFFICE UA Appear POC SEP OFFICE Lot Number [id number] SEP OFFICE Expiration Date 12/2015 SEP OFFICE SeriAl # SEP OFFICE Urine specimen (specimen) 12/02/2014 11:00 AM EST Malinda Patterson MD POINT OF CARE TEST ORDE GIL Final Result SEP OFFICE * XR HAND RIGHT PA LATERAL AND OBLIQUE (04/21/2014 2:13 PM EDT) Anatomical Region Laterality Modality Hand Radiographic Loan ging 04/21/2014 2:13 PM EDT Impressions 04/21/2014 2:26 PM EDT IMPRESSION: No acute bony abnormality identified. Narrative 04/21/2014 2:26 PM EDT XR HAND RIGHT PA LATERAL AND OBLIQUE Apr 21, 2014 02:14:15 PM HISTORY: 729.5-Pain in [id number]. Compare: with previous 08/12/2007 exam. There is deformity of the fourth distal phalanx, compatible with prior trauma which was acute at time of previous 2006 exam. No fracture or acute bony amount is identified. No dislocation is seen. No bony erosive changes. Procedure Note Siddhartha Doll MD - 04/21/2014 XR HAND RIGHT PA LATERAL AND OBLIQUE Apr 21, 2014 02:14:15 PM HISTORY: 729.5-Pain in [id number]. Compare: with previous 08/12/2007exam. There is deformity of the fourth distal phalanx, compatible with priortrauma which was acute at time of previous 2006 exam. No fracture or acute bony amount isidentified. No dislocation is seen. No bony erosive changes. IMPRESSION: No acute bony abnormality identified. Yuli Sanders DO IMG DIAGNOSTIC IMAGING ORD ERABLES Final Result * BETA HCG QUALITATIVE KIT TEST (12/19/2013 2:45 PM EST) Only the most recent of2 resultswithin the time period is included. Beta hCG Qual Negative Blood specimen (specimen) UPPER LIMB STRUCTURE / Unknown 12/19/2013 2:45 PM EST 12/19/2013 2:55 PM EST us Stephen Earl DO CHEMISTRY ORDERABLES Final Resu lt * MRI LUMBAR SPINE WO CONTRAST (11/16/2013 3:44 PM EST) Anatomical Region Laterality Modality L-spine Magnetic Resonan ce 11/16/2013 2:33 PM EST Impressions 11/16/2013 4:37 PM EST IMPRESSION: Grade 1 spondylolisthesis at L5-S1 secondary to bilateral pars interarticularis defects of L5. Minimal discogenic changes at L4-L5 and L5-S1 without evidence of thecal sac or nerve root compression. No focal lumbar disc herniation, lumbar canal stenosis, or focal lumbar nerve root compression identified at this time. Narrative 11/16/2013 4:37 PM EST MRI of the lumbar spine without contrast, 11/16/2013 HISTORY: Low back and bilateral leg pain. FINDINGS: Comparison is made with lumbar spine x-rays dated 10/11/2011. The study is somewhat limited secondary to image noise secondary to the patient's very large size. The lumbar vertebral bodies are normal in height. No acute lumbar compression fracture is seen. A normal conus is identified, ending at the inferior L1 level. The T11-T12 through L3-L4 intervertebral disc spaces are normal. At L4-L5, minimal diffuse discogenic changes are identified, without evidence of thecal sac or nerve root compression. At L5-S1, a grade 1 spondylolisthesis is identified, secondary to bilateral pars interarticularis defects of L5, with an approximately 4 mm anterior slippage of L5 on S1. Minimal diffuse discogenic changes are identified at L5-S1, which minimally indent the anterior epidural fat without evidence of thecal sac or nerve root compression. Procedure Note Sarkis Mendez MD - 11/16/2013 MRI of the lumbar spine without contrast, 11/16/2013 HISTORY: Low back and bilateral leg pain. FINDINGS: Comparison is made with lumbar spine x-rays dated 10/11/2011. The study issomewhat limited secondary to image noise secondary to the patient's very large size. The lumbar vertebral bodies are normal in height. No acute lumbarcompression fracture is seen. A normal conus is identified, ending at the inferior L1 level. [id number] through L3-L4 intervertebral disc spaces are normal. At L4-L5, minimal diffuse discogenic changes are identified, withoutevidence of thecal sac or nerve root compression. At L5-S1, a grade 1 spondylolisthesis is identified, secondary tobilateral pars interarticularis defects of L5, with an approximately 4 mm anteriorslippage of L5 on S1. Minimal diffuse discogenic changes are identified at L5-S1, whichminimally indent the anterior epidural fat without evidence of thecal sac or nerve root compression. IMPRESSION: Grade 1 spondylolisthesis at L5-S1 secondary to bilateral parsinterarticularis defects of L5. Minimal discogenic changes at L4-L5 and L5-S1 withoutevidence of thecal sac or nerve root compression. No focal lumbar disc herniation, lumbar canalstenosis, or focal lumbar nerve root compression identified at this time. us Contreras Casper MD G MRI ORDERABLES Final Result * SCANNED PRE/POST PROCEDURES (10/24/2013 4:32 PM EST) Narrative Procedure Note Unknown, Unknown - 10/24/2013 4:32 PM EST us Unknown Unknown PROCEDURE/MINOR SURGICAL ORDERAB LES Final Result * SCANNED ANESTHESIA FORMS (10/24/2013 4:32 PM EST) Narrative Procedure Note Unknown, Unknown - 10/24/2013 4:32 PM EST us Unknown Unknown PROCEDURE/MINOR SURGICAL ORDERAB LES Final Result * SCANNED LABS (10/24/2013 4:32 PM EST) Only the most recent of5 resultswithin the time period is included. us Unknown Unknown HEMATOLOGY ORDERABLES Final Resu lt * CT ABDOMEN PELVIS WO ORAL OR IV CONTRAST (10/08/2013 1:00 AM EST) Anatomical Region Laterality Modality Abdomen, Pelvis Computed Tomogra phy 10/07/2013 11:3 7 PM EST Impressions 10/08/2013 5:53 AM EST IMPRESSION: 1. There are multiple fat-containing ventral hernia defects, seen superior and inferior to a site of ventral abdominal wall mesh. Please refer to the findings section for details. 2. No evidence of bowel herniation or obstruction. 3. No other acute intra-abdominal or intrapelvic abnormality identified on noncontrast CT. Results were called Dr. Tirado at 0128 hours on 10/08/[address] Rivas. Narrative 10/08/2013 5:53 AM EST Abdomen and pelvis CT without contrast dated 10/08/2013 COMPARISON: Most recent CT is from 03/19/2010 HISTORY: Anterior abdominal pain at prior hernia site TECHNICAL FACTORS: Study was performed without oral or IV contrast per request. FINDINGS: ABDOMEN: There is asymmetric elevation of the right diaphragm which is unchanged and chronic. Included lung bases are clear. There are mild atherosclerotic calcifications, without evidence of abdominal aortic aneurysm. There is a stable soft tissue nodule adjacent to the caudate lobe of the liver, which may relate to accessory hepatic tissue as previously discussed. No focal abnormalities are identified within abdominal solid viscera given noncontrast technique. No evidence of urinary calculi or obstruction. Gallbladder is unremarkable. Appendix is reportedly surgically absent. Patient has a history of prior ventral hernia repair. There are multiple defects in the ventral abdominal wall, seen superior and inferior to a suspected site of ventral abdominal wall mesh. This includes 3 adjacent fat-containing defects superior to the mash, each of which measures 1.5 to 2 cm in transverse diameter. There is an additional fat-containing defect located along the right inferior aspect of the mesh, transverse diameter of this defect measuring approximately 1.5 cm. No herniated bowel loops are identified. No evidence of bowel obstruction, free fluid, or free air. Mild stranding of the ventral subcutaneous fat noted, without evidence of focal well-defined fluid collection. PELVIS: Pelvic viscera are unremarkable in noncontrast appearance. No dependent free fluid is seen. There are chronic appearing bilateral pars defects at L5. Minimal associated anterolisthesis of L5 relative to L4 and S1 measures approximately 2 mm. Procedure Note Guillermo Rivas MD - 10/08/[address] without contrast dated 10/08/2013 COMPARISON: Most recent CT is from 03/19/2010 HISTORY: Anterior abdominal pain at prior hernia site TECHNICAL FACTORS: Study was performed without oral or IV contrast perrequest. FINDINGS: ABDOMEN: There is asymmetric elevation of the right diaphragm which isunchanged and chronic. Included lung bases are clear. There are mild atheroscleroticcalcifications, without evidence of abdominal aortic aneurysm. There is a stable soft tissue noduleadjacent to the caudate lobe of the liver, which may relate to accessory hepatic tissue as previouslydiscussed. No focal abnormalities are identified within abdominal solid viscera givennoncontrast technique. No evidence of urinary calculi or obstruction. Gallbladder is unremarkable.Appendix is reportedly surgically absent. Patient has a history of prior ventral hernia repair.There are multiple defects in the ventral abdominal wall, seen superior and inferior to asuspected site of ventral abdominal wall mesh. This includes 3 adjacent fat-containingdefects superior to the mash, each of which measures 1.5 to 2 cm in transverse diameter. There isan additional fat-containing defect located along the right inferior aspect of the mesh,transverse diameter of this defect measuring approximately 1.5 cm. No herniated bowel loopsare identified. No evidence of bowel obstruction, free fluid, or free air. Mild stranding ofthe ventral subcutaneous fat noted, without evidence of focal well-defined fluidcollection. PELVIS: Pelvic viscera are unremarkable in noncontrast appearance. Nodependent free fluid is seen. There are chronic appearing bilateral pars defects at L5. Minimalassociated anterolisthesis of L5 relative to L4 and S1 measures approximately 2 mm. IMPRESSION: 1. There are multiple fat-containing ventral hernia defects, seen superiorand inferior to a site of ventral abdominal wall mesh. Please refer to the findings sectionfor details. 2. No evidence of bowel herniation or obstruction. 3. No other acute intra-abdominal or intrapelvic abnormality identified onnoncontrast CT. Results were called Dr. Tirado at 0128 hours on 10/08/2013 by . us Soheila Tirado MD [facility] [place] CT ORDERABLES Final Result * SERUM TEST (10/08/2013 12:05 AM EST) Only the most recent of5 resultswithin the time period is included. Test Negative [facility] Blood specimen (specimen) 10/08/2013 12:05 AM EST 10/08/2013 12:05 AM EST us Soheila Tirado MD CHEMISTRY ORDERABLES Edited Re sult - Final [facility] [address] [place] [address] * SCANNED RADIOLOGY REPORT (04/27/2013 2:25 PM EDT) Only the most recent of10 resultswithin the time period is included. Anatomical Region Laterality Modality Other 04/27/2013 2:25 PM EDT us Unknown Unknown IMG DIAGNOSTIC IMAGING ORDERABLE S Final Result * ST STRESS TEST PHARMACOLOGICAL (04/16/2013 9:10 AM EDT) Anatomical Region Laterality Modality Cardiac Stress T esting 04/16/2013 9:15 AM EDT us Contreras Casper MD IMG STRESS ORDERABLES Final Resu lt * XR KNEE RIGHT AP LATERAL AND AXIAL (03/26/2013 2:03 PM EDT) Anatomical Region Laterality Modality Knee Radiographic Loan ging 03/26/2013 Impressions 03/26/2013 2:57 PM EDT IMPRESSION: No fracture. No dislocation. Moderate patellofemoral degenerative osteoarthritis Narrative 03/26/2013 2:57 PM EDT Right knee 3 views INDICATION: Pain. Procedure Note Jim Darden MD - 03/26/2013 Right knee 3 views INDICATION: Pain. IMPRESSION: No fracture. No dislocation. Moderate patellofemoral degenerative osteoarthritis us Contreras Casper MD IMG DIAGNOSTIC IMAGING ORDERABLE S Final Result * XR KNEE LEFT AP LATERAL AND AXIAL (03/26/2013 2:03 PM EDT) Anatomical Region Laterality Modality Knee Radiographic Loan ging 03/26/2013 Impressions 03/26/2013 3:03 PM EDT IMPRESSION: No fracture or dislocation. Moderate patellofemoral degenerative arthritis. Narrative 03/26/2013 3:03 PM EDT Left knee 3 views INDICATION: Pain. Procedure Note Jim Darden MD - 03/26/2013 Left knee 3 views INDICATION: Pain. IMPRESSION: No fracture or dislocation. Moderate patellofemoral degenerative arthritis. Contreras Casper MD IMG DIAGNOSTIC IMAGING ORDERABLE S Final Result * (ABNORMAL) URINALYSIS POC (01/17/2013 5:02 PM EDT) Pathologist [facility] UA Color POC [facility] UA Appear POC Cloudy(A) Clear [facility] UA Gluc POC Negative Negative [facility] UA Ketones POC Trace (5mg/dl)(A) Negative [facility]A Blood POC Negative Negative [facility] pH POC 6.0 5.0 - 8.0 [facility] Protein POC 100 mg/dl(A) Negative [facility] UA Urobilinogen POC 0.2 mg/dl <=1 mg/dl [facility] Nitrite POC Negative Negative [facility] Leuk Est POC Negative Negative [facility] SG POC >=1.030 1.001 - 1.035 [facility] Urine specimen (specimen) 01/17/2013 5:02 PM EDT 01/17/2013 5:02 PM EDT Clif Hu MD POINT OF CARE TEST ORDERABLES F inal Result Performing Organization Address City/State/[facility] Co de Phone Number [facility] [address] [place] [address] * XR ANKLE RIGHT AP LATERAL AND OBLIQUE (12/09/2012 6:15 PM EST) Anatomical Region Laterality Modality Ankle Radiographic Loan ging 12/09/2012 6:09 PM EST Impressions 12/09/2012 9:48 PM EST IMPRESSION: No evidence of acute injury. Degenerative change including prominent plantar calcaneal spur. Voice clip sent to the ER. Narrative 12/09/2012 9:48 PM EST RIGHT ANKLE SERIES 12/09/2012: HISTORY: Fall and pain. DISCUSSION: 3 views right ankle demonstrate no fracture. Mortise intact. There is some minimal degenerative spurring at the medial aspect of the tibiotalar joint at the level of the medial malleolus. There is a large plantar calcaneal spur. Procedure Note Ziggy Sow MD - 12/09/2012 RIGHT ANKLE SERIES 12/09/2012: HISTORY: Fall and pain. DISCUSSION: 3 views right ankle demonstrate no fracture. Mortise intact.There is some minimal degenerative spurring at the medial aspect of the tibiotalar joint at thelevel of the medial malleolus. There is a large plantar calcaneal spur. IMPRESSION: No evidence of acute injury. Degenerative change including prominentplantar calcaneal spur. Voice clip sent to the ER. us Earnestine Marks MD IMG DIAGNOSTIC IMAGING JUANITO CORDERO Final Result * .CHL/GC GENITAL RESULTS (11/15/2012 6:31 PM EST) Only the most recent of2 resultswithin the time period is included. C. trachomatis/N. gonorrhoeae Specimen Genital [facility] Comment: Extraction of genetic material from urine and Thin Prep samples was performed using a method that was developed and validated in the performing laboratory. Detailed methodology is available upon request. Chlamydia trachomatis Negative [facility] Neisseria gonorrhoeae Negative [facility] Specimen from genital system (specimen) 11/15/2012 6:31 PM EST 11/15/2012 6:31 PM EST us Shauna Ford MD MICROBIOLOGY - GENERAL ORD ERABLES Edited [facility] [address] [place] [address] * TRICHOMONAS AG (11/15/2012 6:31 PM EST) Only the most recent of2 resultswithin the time period is included. Trichomonas Ag Negative [facility] Vaginal swab (specimen) URINARY BLADDER STRUCTURE / Unknown 11/15/2012 6:31 PM EST 11/15/2012 6:31 PM EST us Shauna Ford MD MICROBIOLOGY - GENERAL ORD ERABLES Final Result [facility] [address] [place] [address] * GRAM STAIN (11/15/2012 6:31 PM EST) Only the most recent of2 resultswithin the time period is included. Final Few WBC's Abundant Gram positive rods Abundant epithelial cells [facility] Cervical swab (specimen) URINARY BLADDER STRUCTURE / Unknown 11/15/2012 6:31 PM EST 11/15/2012 6:34 PM EST us Shauna Ford MD MICROBIOLOGY - GENERAL ORD ERABLES Final Result Performing Organization Address [facility] Co de Phone Number [facility] [address] [place] [address] * US PELVIS NON OB COMPLETE (10/10/2012 12:49 PM EST) Anatomical Region Laterality Modality Pelvis Ultrasound 10/10/2012 Impressions 10/10/2012 6:19 PM EST IMPRESSION: Reduced uterine size. Reduced fibroid sizes. Normal endometrial thickness. Simple right ovarian cyst measuring 2.3 cm. Narrative 10/10/2012 6:19 PM EST PELVIC ULTRASOUND INCLUDING TRANSABDOMINAL AND TRANSVAGINAL SONOGRAPHY, 10/10/2012: HISTORY: Uterine fibroids, symptomatic with menorrhagia. Patient underwent uterine artery angiography 06/14/2011 approximately 16 months ago. Compare 10/12/2009 study. At that time, approximately 2 months prior to uterine artery embolization, several fibroids were noted with the largest measuring 2.9 x 2.3 cm. Today's study reveals normal uterus except for mild enlargement, measuring 11.4 cm. The previous measurement on 11/01/2009 was 14 x 7.2 x 6.5 cm. Current dimension is 11.4 x 6 x 8.3 cm. Most of the fibroids remain visible but have significantly decreased in size. The largest fibroid currently measures less than 1.6 cm. The endometrial canal is normal in size at 7 mm. Cervical nabothian cysts are seen. Ovaries are normal bilaterally except for a right ovarian cyst measuring 2.3 x 1.7 x 2.5 cm. This appears to be simple. There is no free fluid. Procedure Note Antony Kaur MD - 10/10/2012 PELVIC ULTRASOUND INCLUDING TRANSABDOMINAL AND TRANSVAGINAL SONOGRAPHY,10/10/2012: HISTORY: Uterine fibroids, symptomatic with menorrhagia. Patient underwentuterine artery angiography 06/14/2011 approximately 16 months ago. Compare 10/12/2009study. At that time, approximately 2 months prior to uterine artery embolization, severalfibroids were noted with the largest measuring 2.9 x 2.3 cm. Today's study reveals normal uterusexcept for mild enlargement, measuring 11.4 cm. The previous measurement on 11/01/2009 was14 x 7.2 x 6.5 cm. Current dimension is 11.4 x 6 x 8.3 cm. Most of the fibroids remainvisible but have significantly decreased in size. The largest fibroid currently measuresless than 1.6 cm. The endometrial canal is normal in size at 7 mm. Cervical nabothian cysts areseen. Ovaries are normal bilaterally except for a right ovarian cyst measuring 2.3 x 1.7 x2.5 cm. This appears to be simple. There is no free fluid. IMPRESSION: Reduced uterine size. Reduced fibroid sizes. Normalendometrial thickness. Simple right ovarian cyst measuring 2.3 cm. Jaquelin Bal MD IMG US ORDERABLES Final Resul t * XR LUMBAR SPINE AP AND LATERAL (10/11/2011 1:43 PM EST) Anatomical Region Laterality Modality L-spine Radiographic Loan ging 10/11/2011 Impressions 10/11/2011 4:03 PM EST IMPRESSION: Slight degenerative change. Narrative 10/11/2011 4:03 PM EST Lumbar spine 3 views 10/11/2011 COMPARISON: March 13, 2009 HISTORY: Low back pain, fell Minimal degenerative change with spurring noted. No fracture or destructive lesion is seen. Procedure Note Dc Reyes - 10/11/2011 Lumbar spine 3 views 10/11/2011 COMPARISON: March 13, 2009 HISTORY: Low back pain, fell Minimal degenerative change with spurring noted. No fracture ordestructive lesion is seen. IMPRESSION: Slight degenerative change. Jaquelin Bal MD IMG DIAGNOSTIC IMAGING ORDERA BLES Final Result * MRI PELVIS W WO CONTRAST (09/20/2011 12:56 PM EST) Only the most recent of2 resultswithin the time period is included. Anatomical Region Laterality Modality Pelvis Magnetic Resonan ce 09/20/2011 Impressions 09/21/2011 2:55 PM EST IMPRESSION: Marked reduction in fibroid size. Avascular fibroid now indicates successful uterine artery embolization. A large fibroid previously was submucosal and currently is submucosal and partially intracavitary suggesting slow passage or shedding of the fibroid into the endometrium. No evidence of expulsion at this time. Markedly improvement. Decreased uterine size. No evidence of complication. Narrative 09/21/2011 2:55 PM EST MRI OF THE PELVIS WITHOUT AND WITH CONTRAST, 09/20/2011. HISTORY: Uterine fibroids. Menorrhagia, status post uterine fibroid embolization, 06/14/2011. COMPARISON: Prior study dated 04/20/2011. Previously, a large submucosal fibroid was noted, measuring approximately 8.1 cm in greatest longitudinal dimension x 5.7 cm AP x 5.9 cm transverse. It may have been partially intracavitary at that time. The patient underwent uterine artery embolization. The procedure appears to be successful. The fibroid now measures 2.0 cm longitudinal x 2.4 cm AP x 2.3 cm transverse. There is marked reduction in size. Estimated volume reduction is 95%. Uterine size is decreased as well. Previous maximum uterine dimension was 15 cm longitudinal and currently it's 13 cm longitudinal. Previous maximum AP dimension was 8.8 cm and currently it is 6.8 cm. The fibroid furthermore is avascular indicating successful embolization. It appears to be partially intracavitary at this time suggesting that there is a high likelihood of continual fibroid passage. There is no evidence currently on MR of expulsion. Nabothian cyst is normal. Endocervical canal is closed and normal as is the cervix. The remainder of the myometrium is normal. Procedure Note Antony Kaur - 09/21/2011 MRI OF THE PELVIS WITHOUT AND WITH CONTRAST, 09/20/2011. HISTORY: Uterine fibroids. Menorrhagia, status post uterine fibroidembolization, 06/14/2011. COMPARISON: Prior study dated 04/20/2011. Previously, a large submucosal fibroid was noted, measuring approximately8.1 cm in greatest longitudinal dimension x 5.7 cm AP x 5.9 cm transverse. It may have beenpartially intracavitary at that time. The patient underwent uterine arteryembolization. The procedure appears to be successful. The fibroid now measures 2.0 cm longitudinal x2.4 cm AP x 2.3 cm transverse. There is marked reduction in size. Estimated volume reductionis 95%. Uterine size is decreased as well. Previous maximum uterine dimension was 15 cmlongitudinal and currently it's 13 cm longitudinal. Previous maximum AP dimension was 8.8 cm andcurrently it is 6.8 cm. The fibroid furthermore is avascular indicating successful embolization.It appears to be partially intracavitary at this time suggesting that there is a highlikelihood of continual fibroid passage. There is no evidence currently on MR of expulsion.Nabothian cyst is normal. Endocervical canal is closed and normal as is the cervix. The remainder ofthe myometrium is normal. IMPRESSION: Marked reduction in fibroid size. Avascular fibroid nowindicates successful uterine artery embolization. A large fibroid previously was submucosal andcurrently is submucosal and partially intracavitary suggesting slow passage or sheddingof the fibroid into the endometrium. No evidence of expulsion at this time. Markedlyimprovement. Decreased uterine size. No evidence of complication. Beau Paz MD IMG MRI ORDERABLES Final Resul t * TROPONIN-I (08/27/2011 9:19 AM EDT) Only the most recent of6 resultswithin the time period is included. Troponin-I <0.01 <=0.06 ng/mL [facility] Comment:Reference range revi sed 08/12/11. Blood specimen (specimen) UPPER LIMB STRUCTURE / Unknown 08/27/2011 9:19 AM EDT 08/27/2011 9:23 AM EDT Heri Figueroa MD CHEMISTRY ORDERABLES Final Resu lt Performing Organization Address [facility] de Phone Number [facility] [address] [place] [address] * PARTIAL THROMBOPLASTIN TIME (08/27/2011 2:44 AM EDT) Only the most recent of2 resultswithin the time period is included. PTT 32.4 23.6 - 35.1 second(s) [facility] Comment: The aPTT is no longer the appropriate test to monitor unfractionated heparin anticoagulation. Therapeutic range for direct thrombin inhibitors: Argatroban is 1.5 to 3 times the aPTT baseline. Lepirudin is 1.5 to 2 times the aPTT baseline. The aPTT should not exceed 100 seconds. The dosage of Argatroban should be decreased in patients with hepatic impairment. The dosage of Lepirudin should be decreased in renal insufficiency. Blood specimen (specimen) UPPER LIMB STRUCTURE / Unknown 08/27/2011 2:44 AM EDT 08/27/2011 3:00 AM EDT us Heri Figueroa MD HEMATOLOGY ORDERABLES Final Res ult Performing Organization Address [facility] de Phone Number [facility] [address] [place] [address] * MAGNESIUM LEVEL (08/27/2011 2:44 AM EDT) Only the most recent of2 resultswithin the time period is included. Pathologist [facility] Magnesium 1.9 1.6 - 2.2 mg/dL [facility] Blood specimen (specimen) UPPER LIMB STRUCTURE / Unknown 08/27/2011 2:44 AM EDT 08/27/2011 3:09 AM EDT us Heri Figueroa MD CHEMISTRY ORDERABLES Final Resu lt Performing Organization Address [facility] Co de Phone Number [facility] [address] [place] [address] * CREATININE (08/27/2011 2:44 AM EDT) Only the most recent of2 resultswithin the time period is included. Creatinine 0.8 0.6 - 1.0 mg/dL [facility] GFR Afr Am >60 [facility] Comment: GFR is estimated using creatinine, age, gender, and race. GFR has been validated for patients between 18 and 70 years of age. GFR has not been validated for women, patients with serious comorbid conditions, or persons with extremes of body size, muscle mass, or nutritional status. For additional information: www.kidney.org. Chronic kidney disease stage GFR (ml/min/1.73 square meters) Stage 3 30 - 59 Stage 4 15 - 29 Stage 5 14 or less GFR Non Afr Am >60 [facility] Blood specimen (specimen) UPPER LIMB STRUCTURE / Unknown 08/27/2011 2:44 AM EDT 08/27/2011 3:13 PM EDT Narrative [facility] - 08/27/2011 4:07 PM EDT Order ONLY if pt. Is 65 years or older, has abnormal kidney function, has only one kidney or if pt. is diabetic. Anna Marielilly Verdugo DO CHEMISTRY ORDERABLES Final Resul t Performing Organization Address City/State/[facility] Co de Phone Number [facility] [address] [place] [address] * US GALLBLADDER (08/02/2011 11:43 AM EDT) Anatomical Region Laterality Modality Pelvis Ultrasound 08/02/2011 11:4 9 AM EDT Impressions 08/02/2011 1:55 PM EDT IMPRESSION: 1. Fatty infiltration of the liver. Narrative 08/02/2011 1:55 PM EDT RIGHT UPPER QUADRANT ULTRASOUND HISTORY: Pressure in chest. FINDINGS: The liver is normal in size. It is diffusely increased in attenuation, likely representing mild fatty infiltration. The gallbladder is unremarkable. The common bile duct measures 2 mm. Procedure Note Jim Darden - 08/02/2011 RIGHT UPPER QUADRANT ULTRASOUND HISTORY: Pressure in chest. FINDINGS: The liver is normal in size. It is diffusely increased in attenuation,likely representing mild fatty infiltration. The gallbladder is unremarkable. The common bile ductmeasures 2 mm. IMPRESSION: 1. Fatty infiltration of the liver. Jaquelin Bal MD [facility] [facility] US ORDERABLES Final Resul t * ST STRESS TEST EXERCISE (07/30/2011 8:38 AM EDT) PYRAMIS LINK PYRAMIS Anatomical Region Laterality Modality Cardiac Stress T esting 07/30/2011 8:21 AM EDT Alverto Alex MD [facility] STRESS ORDERABLES Final Result * IR UTERINE FIBROID EMBOLIZATION (06/14/2011 11:33 AM EDT) Anatomical Region Laterality Modality Abdomen, Pelvis Interventional R adiology 06/14/2011 Impressions 06/15/2011 4:52 PM EDT IMPRESSION: 1. Successful bilateral uterine artery embolization towards palliation menorrhagia in the setting of uterine fibroids. Narrative 06/15/2011 4:52 PM EDT BILATERAL UTERINE ARTERY EMBOLIZATION, INCLUDING PRE- AND POST SELECTIVE UTERINE ARTERY ANGIOGRAPHY AND PELVIC ARTERIOGRAPHY: 06/14/2011 HISTORY: Menorrhagia and uterine fibroids. TECHNIQUE: Written informed consent obtained. Conscious sedation, including pre- and post patient evaluation with continuous monitoring per anesthesia flowsheet. Physician in room time during conscious sedation is 1 hour 30 minutes. Fluoroscopy time is 2.8 minutes. Right groin prepped and draped in the usual sterile manner. Local anesthesia with 1% lidocaine. Right common femoral artery pulse faint with large body habitus. Right common femoral artery demonstrated patent and permanent image obtained by ultrasound. Right common femoral artery accessed 4 Chilean micropuncture set with ultrasound guidance. 5 [place]an vascular sheath placed over the wire. 5 [place]an pigtail placed through the lower abdominal aorta for pelvic arteriography using DSA. Single tortuous bilateral uterine artery demonstrated with large central fibroid vascularity in the uterus. 5 [place]an Massey catheter was negotiated up and over the bifurcation and selected to the left hypogastric artery. Selective pelvic arteriography used in several projections to assess the takeoff of the uterine artery. A 3 [place]an high flow Renegade microcatheter and transcend wire were placed coaxially to select the left uterine artery to its horizontal segment. The selective left uterine arteriogram confirmed position suitable for embolization. Embolization undertaken under low dose fluoroscopic visualization, utilizing one vial Embosphere 500 to 700 micron sized particles, achieving desired endpoint with pruning of the distal uterine artery territory and sluggish forward flow in the main left uterine artery. Massey catheter, having been formed in the Cara loop, was then used to select the right hypogastric artery. Selective right hypogastric arteriogram performed in several projections to identify the takeoff of the right uterine artery. The right uterine artery was again selected coaxially using the microcatheter and again to its horizontal segment. Selective right uterine arteriogram performed confirming site suitable for embolization. Embolization undertaken under low-dose fluoroscopic visualization and utilizing one vial Embosphere 500 to 700 micron particle beads and an additional vial of Embosphere 700 and 900 micron beads, achieving desired endpoint. On followup, selective uterine arteriogram with pruning of the distal uterine artery territory and sluggish forward flow in the main right uterine artery. Hemostasis was achieved right common femoral arteriotomy with manual compression. Procedure Note Beau Paz - 06/15/2011 BILATERAL UTERINE ARTERY EMBOLIZATION, INCLUDING PRE- AND POST SELECTIVEUTERINE ARTERY ANGIOGRAPHY AND PELVIC ARTERIOGRAPHY: 06/14/2011 HISTORY: Menorrhagia and uterine fibroids. TECHNIQUE: Written informed consent obtained. Conscious sedation,including pre- and post patient evaluation with continuous monitoring per anesthesia flowsheet.Physician in room time during conscious sedation is 1 hour 30 minutes. Fluoroscopy time is 2.8minutes. Right groin prepped and draped in the usual sterile manner. Local anesthesia with 1%lidocaine. Right common femoral artery pulse faint with large body habitus. Right commonfemoral artery demonstrated patent and permanent image obtained by ultrasound. Rightcommon femoral artery accessed 4 Chilean micropuncture set with ultrasound guidance. 5 Frenchvascular sheath placed over the wire. 5 [place]an pigtail placed through the lower abdominal aortafor pelvic arteriography using DSA. Single tortuous bilateral uterine arterydemonstrated with large central fibroid vascularity in the uterus. 5 [place]an Massey catheter wasnegotiated up and over the bifurcation and selected to the left hypogastric artery. Selectivepelvic arteriography used in several projections to assess the takeoff of the uterine artery. A3 [place]an high flow Renegade microcatheter and transcend wire were placed coaxially to selectthe left uterine artery to its horizontal segment. The selective left uterine arteriogramconfirmed position suitable for embolization. Embolization undertaken under low dosefluoroscopic visualization, utilizing one vial Embosphere 500 to 700 micron sized particles, achievingdesired endpoint with pruning of the distal uterine artery territory and sluggish forwardflow in the main left uterine artery. Massey catheter, having been formed in the Cara loop,was then used to select the right hypogastric artery. Selective right hypogastricarteriogram performed in several projections to identify the takeoff of the right uterine artery.The right uterine artery was again selected coaxially using the microcatheter and again toits horizontal segment. Selective right uterine arteriogram performed confirming sitesuitable for embolization. Embolization undertaken under low-dose fluoroscopicvisualization and utilizing one vial Embosphere 500 to 700 micron particle beads and an additionalvial of Embosphere 700 and 900 micron beads, achieving desired endpoint. On followup, selectiveuterine arteriogram with pruning of the distal uterine artery territory and sluggish forwardflow in the main right uterine artery. Hemostasis was achieved right common femoral arteriotomywith manual compression. IMPRESSION: 1. Successful bilateral uterine artery embolization towards palliationmenorrhagia in the setting of uterine fibroids. us Beau Paz MD IMG IR ORDERABLES Final Result * IR US GUIDED VASCULAR ACCESS (06/14/2011 11:33 AM EDT) Anatomical Region Laterality Modality Interventional R adiology 06/14/2011 10:3 0 AM EDT Impressions 06/15/2011 4:52 PM EDT IMPRESSION: 1. Successful bilateral uterine artery embolization towards palliation menorrhagia in the setting of uterine fibroids. Narrative 06/15/2011 4:52 PM EDT BILATERAL UTERINE ARTERY EMBOLIZATION, INCLUDING PRE- AND POST SELECTIVE UTERINE ARTERY ANGIOGRAPHY AND PELVIC ARTERIOGRAPHY: 06/14/2011 HISTORY: Menorrhagia and uterine fibroids. TECHNIQUE: Written informed consent obtained. Conscious sedation, including pre- and post patient evaluation with continuous monitoring per anesthesia flowsheet. Physician in room time during conscious sedation is 1 hour 30 minutes. Fluoroscopy time is 2.8 minutes. Right groin prepped and draped in the usual sterile manner. Local anesthesia with 1% lidocaine. Right common femoral artery pulse faint with large body habitus. Right common femoral artery demonstrated patent and permanent image obtained by ultrasound. Right common femoral artery accessed 4 Chilean micropuncture set with ultrasound guidance. 5 Chilean vascular sheath placed over the wire. 5 [place]an pigtail placed through the lower abdominal aorta for pelvic arteriography using DSA. Single tortuous bilateral uterine artery demonstrated with large central fibroid vascularity in the uterus. 5 [place]an Massey catheter was negotiated up and over the bifurcation and selected to the left hypogastric artery. Selective pelvic arteriography used in several projections to assess the takeoff of the uterine artery. A 3 [place]an high flow Renegade microcatheter and transcend wire were placed coaxially to select the left uterine artery to its horizontal segment. The selective left uterine arteriogram confirmed position suitable for embolization. Embolization undertaken under low dose fluoroscopic visualization, utilizing one vial Embosphere 500 to 700 micron sized particles, achieving desired endpoint with pruning of the distal uterine artery territory and sluggish forward flow in the main left uterine artery. Massey catheter, having been formed in the Cara loop, was then used to select the right hypogastric artery. Selective right hypogastric arteriogram performed in several projections to identify the takeoff of the right uterine artery. The right uterine artery was again selected coaxially using the microcatheter and again to its horizontal segment. Selective right uterine arteriogram performed confirming site suitable for embolization. Embolization undertaken under low-dose fluoroscopic visualization and utilizing one vial Embosphere 500 to 700 micron particle beads and an additional vial of Embosphere 700 and 900 micron beads, achieving desired endpoint. On followup, selective uterine arteriogram with pruning of the distal uterine artery territory and sluggish forward flow in the main right uterine artery. Hemostasis was achieved right common femoral arteriotomy with manual compression. Procedure Note Beau Paz - 06/15/2011 BILATERAL UTERINE ARTERY EMBOLIZATION, INCLUDING PRE- AND POST SELECTIVEUTERINE ARTERY ANGIOGRAPHY AND PELVIC ARTERIOGRAPHY: 06/14/2011 HISTORY: Menorrhagia and uterine fibroids. TECHNIQUE: Written informed consent obtained. Conscious sedation,including pre- and post patient evaluation with continuous monitoring per anesthesia flowsheet.Physician in room time during conscious sedation is 1 hour 30 minutes. Fluoroscopy time is 2.8minutes. Right groin prepped and draped in the usual sterile manner. Local anesthesia with 1%lidocaine. Right common femoral artery pulse faint with large body habitus. Right commonfemoral artery demonstrated patent and permanent image obtained by ultrasound. Rightcommon femoral artery accessed 4 [place]an micropuncture set with ultrasound guidance. 5 Frenchvascular sheath placed over the wire. 5 [place]an pigtail placed through the lower abdominal aortafor pelvic arteriography using DSA. Single tortuous bilateral uterine arterydemonstrated with large central fibroid vascularity in the uterus. 5 [place]an Massey catheter wasnegotiated up and over the bifurcation and selected to the left hypogastric artery. Selectivepelvic arteriography used in several projections to assess the takeoff of the uterine artery. A3 [place]an high flow Renegade microcatheter and transcend wire were placed coaxially to selectthe left uterine artery to its horizontal segment. The selective left uterine arteriogramconfirmed position suitable for embolization. Embolization undertaken under low dosefluoroscopic visualization, utilizing one vial Embosphere 500 to 700 micron sized particles, achievingdesired endpoint with pruning of the distal uterine artery territory and sluggish forwardflow in the main left uterine artery. Massey catheter, having been formed in the Cara loop,was then used to select the right hypogastric artery. Selective right hypogastricarteriogram performed in several projections to identify the takeoff of the right uterine artery.The right uterine artery was again selected coaxially using the microcatheter and again toits horizontal segment. Selective right uterine arteriogram performed confirming sitesuitable for embolization. Embolization undertaken under low-dose fluoroscopicvisualization and utilizing one vial Embosphere 500 to 700 micron particle beads and an additionalvial of Embosphere 700 and 900 micron beads, achieving desired endpoint. On followup, selectiveuterine arteriogram with pruning of the distal uterine artery territory and sluggish forwardflow in the main right uterine artery. Hemostasis was achieved right common femoral arteriotomywith manual compression. IMPRESSION: 1. Successful bilateral uterine artery embolization towards palliationmenorrhagia in the setting of uterine fibroids. us Beau Paz MD G IR ORDERABLES Final Result * FOLLICLE STIMULATING HORMONE LEVEL (06/11/2011 1:24 PM EDT) FSH 11.1 mIU/mL [facility] Comment: Suggested Reference Range (mIU/mL) Postmenopausal Female 22 - 130 Follicular Phase Female 2 - 12 Luteal Phase Female 1 - 10 Blood specimen (specimen) UPPER LIMB STRUCTURE / Unknown 06/11/2011 1:24 PM EDT 06/11/2011 1:31 PM EDT us Beau Paz MD CHEMISTRY ORDERABLES Final Res ult [facility] [address] [place] [address] * SCANNED PRE/POST PROCEDURES (08/18/2010 12:00 AM EDT) Narrative 08/18/2010 10:06 PM EDT Ordered by an unspecified provider. Transcriptions Unknown, U - 08/18/2010 10:06 PM EDT us U Unknown PROCEDURE/MINOR SURGICAL ORDERAB LES Final Result * SCANNED ANESTHESIA FORMS (08/18/2010 12:00 AM EDT) Narrative 08/18/2010 10:06 PM EDT Ordered by an unspecified provider. Transcriptions Unknown, U - 08/18/2010 10:06 PM EDT us U Unknown PROCEDURE/MINOR SURGICAL ORDERAB LES Final Result * SCANNED PATHOLOGY REPORT (08/18/2010 12:00 AM EDT) Narrative 08/18/2010 7:04 PM EDT Ordered by an unspecified provider. Transcriptions Unknown, U - 08/18/2010 7:04 PM EDT us U Unknown PATHOLOGY ORDERABLES Final Resul t * SCANNED OR REPORT (06/21/2010 12:00 AM EDT) Narrative 06/21/2010 10:50 AM EDT Ordered by an unspecified provider. Transcriptions Unknown, U - 06/21/2010 10:36 AM EDT us U Unknown PROCEDURE/MINOR SURGICAL ORDERAB LES Final Result * XR LOWER LEG TIBIA/FIBULA (06/04/2010 3:21 PM EDT) Anatomical Region Laterality Modality Other 06/04/2010 3:21 PM EDT Narrative 06/04/2010 3:28 PM EDT Left lower leg 3 views 06/04/2010. History- Injury. Findings- No fracture or bony lesion. Museum Exhibit Technician- CLEVE BUSH MD Reading Physician- CLEVE BUSH MD Released Date Time- 06/04/10 1529 Procedure Note Cleve Bush - 06/04/2010 Left lower leg 3 views 06/04/2010. History- Injury. Findings- No fracture or bony lesion. Museum Exhibit Technician- CLEVE BUSH MD Reading Physician- CLEVE BUSH MD Released Date Time- 06/04/10 1529 Carlene Burt LIGHT COIL WINDER [facility] RAD HISTORICA L Final Result * MR LUMBAR SPINE W/O CONT (06/01/2010 9:16 AM EDT) Anatomical Region Laterality Modality Other 06/01/2010 9:16 AM EDT Narrative 06/01/2010 9:57 AM EDT MRI lumbar spine. Exam date 06/01/2010. History- Low back pain. Findings- There is normal alignment of the lumbar spine. The conus lies at T12-L1. The discs are normal in signal. No central canal stenosis is present. There are no areas of foraminal narrowing. Impression- Normal MRI of the lumbar spine Museum Exhibit Technician- ELEANOR FIGUEROA MD Reading Physician- ELEANOR FIGUEROA MD Released Date Time- 06/01/10 0958 Procedure Note Eleanor Figueroa MD - 06/01/2010 MRI lumbar spine. Exam date 06/01/2010. History- Low back pain. Findings- There is normal alignment of the lumbar spine. The conus lies at T12-L1. The discs are normal in signal. No central canal stenosis is present. There are no areas of foraminal narrowing. Impression- Normal MRI of the lumbar spine Museum Exhibit Technician- ELEANOR FIGUEROA MD Reading Physician- ELEANOR FIGUEROA MD Released Date Time- 06/01/10 0958 Ling Regalado MD [facility] Fin al Result * SCANNED OR REPORT (05/27/2010 12:00 AM EDT) Narrative 05/27/2010 5:22 PM EDT Ordered by an unspecified provider. Transcriptions Unknown, U - 05/27/2010 12:45 PM EDT us U Unknown PROCEDURE/MINOR SURGICAL ORDERAB LES Final Result * SCANNED OR REPORT (05/26/2010 12:00 AM EDT) Narrative 05/27/2010 3:05 PM EDT Ordered by an unspecified provider. Transcriptions Unknown, U - 05/26/2010 1:18 PM EDT us U Unknown PROCEDURE/MINOR SURGICAL ORDERAB LES Final Result * SURGICAL PATHOLOGY REPORT (04/20/2010 4:00 PM EDT) Only the most recent of2 resultswithin the time period is included. Surgical Pathology Report PATIENT NAME:KRISTIN ESPINOZA Surgical Pathology Report Accession Number Collected Date/Time Received Date/Time [id number] 04/20/10 16:00 EDT 04/21/10 07:58 EDT Diagnosis Mesh from Ventral Hernia (Gross) James Nunez MD (Electronicall y signed by) Verified: 04/22/2010 [facility] Laboratory Clinical Information Ventral hernia Gross Description Received in formalin labelled with the patient's name and mesh is a 6 x 5.5 cm pinon-wall to pink oval shaped mass with attached tissue (1 cm thickness). Sectioning reveals fibrofatty tissue with mesh material without focal lesion. Gross examination only. NOTE: The gross specimen was reviewed by Dr. Nunez. /[place] DB /CT [facility] 04/20/2010 4:00 PM EDT us Francis Tejeda MD PATHOLOGY ORDERABLES Final Re sult [facility] [address] [place] [address] * CT ABD/PELVIS GOLD LETTERER (03/19/2010 11:35 AM EDT) Only the most recent of4 resultswithin the time period is included. Anatomical Region Laterality Modality Other 03/19/2010 11:3 5 AM EDT Narrative 03/19/2010 5:[address] WT RM C ORDER 4-30 PM Abdomen and pelvis CT with contrast- 03/19/2010. Comparison- 10/30/2009. Indication- 39-year-old. Reassess umbilical hernia recurrence. Prior periumbilical hernia repair and appendectomy. Technical factors- 5 mm axial images obtained from lung bases to symphysis pubis following administration of oral contrast and 75 mL of IV Optiray-320. Findings- Due to patient's body habitus, not all of anterior or lateral superficial subcutaneous tissues of the torso are included on the exam. Postsurgical changes noted in subcutaneous tissues in region of umbilicus and below. Lower left paracentral peritoneum has a 1 cm area where there is hazy small areas of soft tissue attenuation on either side. On the peritoneal side the mesenteric tissues, the area of involvement is 1.2 cm. On the opposite side, the defect is about 8 to 9 mm. The tiny peritoneal defect was present on prior exam. The intraperitoneal soft tissue changes are more prominent than before. This could correspond to a small area of entrapped or vascular compromise omentum. No other larger peritoneal defect observed. Spleen, pancreas, adrenal glands, kidneys and gallbladder are normal. Liver parenchyma attenuation is normal. A 1.6 cm anterior-posterior round lobule of soft tissue lies adjacent caudate lobe. It has similar attenuation to the liver and is unchanged from prior exams. It has been shown to be separate from pancreas on the June 2009 exam. It is favored to correspond to small accessory hepatic tissue. Small lymph node considered less likely. Small bowel normal. No focal abnormality of the colon. Female reproductive organs and bladder normal. No pelvic or retroperitoneal lymphadenopathy. 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 Nitrogen gas is in both sacroiliac joints. Lung bases are clear. Impression abdomen- 1. Very small left paracentral peritoneal defect inferior and lateral to the umbilicus has more prominent but small hazy soft tissue attenuation on either side of the defect. This may correspond to a small bit of entrapped omental fat with vascular compromise. No significant surrounding inflammatory change or large ventral peritoneal defect. 2. Nonspecific but stable nodular prominence along medial margin hepatic caudate lobe. Review of nuclear medicine sulfur colloid study 02/27/2010 did not include SPECT imaging to clearly evaluate this area. Small accessory hepatic parenchyma or lobe suspected. Impression pelvis- 1. No acute pelvic process. Museum Exhibit Technician- BRIANNA CHAVEZ Reading Physician- PAM SANTANA MD. Released Date Time- 03/19/10 1715 Procedure Note Pam Santana - 03/19/2010 CT WT RM C ORDER 4-30 PM Abdomen and pelvis CT with contrast- 03/19/2010. Comparison- 10/30/2009. Indication- 39-year-old. Reassess umbilical hernia recurrence. Prior periumbilical hernia repair and appendectomy. Technical factors- 5 mm axial images obtained from lung bases to symphysis pubis following administration of oral contrast and 75 mL of IV Optiray-320. Findings- Due to patient's body habitus, not all of anterior or lateral superficial subcutaneous tissues of the torso are included on the exam. Postsurgical changes noted in subcutaneous tissues in region of umbilicus and below. Lower left paracentral peritoneum has a 1 cm area where there is hazy small areas of soft tissue attenuation on either side. On the peritoneal side the mesenteric tissues, the area of involvement is 1.2 cm. On the opposite side, the defect is about 8 to 9 mm. The tiny peritoneal defect was present on prior exam. The intraperitoneal soft tissue changes are more prominent than before. This could correspond to a small area of entrapped or vascular compromise omentum. No other larger peritoneal defect observed. Spleen, pancreas, adrenal glands, kidneys and gallbladder are normal. Liver parenchyma attenuation is normal. A 1.6 cm anterior-posterior round lobule of soft tissue lies adjacent caudate lobe. It has similar attenuation to the liver and is unchanged from prior exams. It has been shown to be separate from pancreas on the June 2009 exam. It is favored to correspond to small accessory hepatic tissue. Small lymph node considered less likely. Small bowel normal. No focal abnormality of the colon. Female reproductive organs and bladder normal. No pelvic or retroperitoneal lymphadenopathy. 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 Nitrogen gas is in both sacroiliac joints. Lung bases are clear. Impression abdomen- 1. Very small left paracentral peritoneal defect inferior and lateral to the umbilicus has more prominent but small hazy soft tissue attenuation on either side of the defect. This may correspond to a small bit of entrapped omental fat with vascular compromise. No significant surrounding inflammatory change or large ventral peritoneal defect. 2. Nonspecific but stable nodular prominence along medial margin hepatic caudate lobe. Review of nuclear medicine sulfur colloid study 02/27/2010 did not include SPECT imaging to clearly evaluate this area. Small accessory hepatic parenchyma or lobe suspected. Impression pelvis- 1. No acute pelvic process. Museum Exhibit Technician- BRIANNAESTEFANIA Mijares Physician- PAM SANTANA MD. Released Date Time- 03/19/10 1715 Ling Regalado MD [facility] Fin al Result * VA ARTERIAL LOWER (03/19/2010 10:20 AM EDT) Anatomical Region Laterality Modality Other 03/19/2010 10:2 0 AM EDT Narrative 03/19/2010 6:51 PM EDT Critical Result- No Critical Finding Previous Vascular Surgery- CONCLUSIONS Normal hemodynamics of both lower extremities at rest. PVRs and Doppler waveforms are within normal bilaterally. No evidence of arterial insufficiency of either leg. Great toew pressures are above the healing index bilaterally. Siddhartha Figueroa MD (Electronically Signed) Final Date- 19 Mar 2010 1850 This is an abbreviated report. The original report with measurements and velocities can be obtained from the vascular lab. Museum Exhibit Technician- SIDDHARTHA Mijares Physician- SIDDHARTHA FIGUEROA M.D Released Date Time- 03/19/10 1851 Procedure Note Siddhartha Figueroa MD - 03/19/2010 Critical Result- No Critical Finding Previous Vascular Surgery- CONCLUSIONS Normal hemodynamics of both lower extremities at rest. PVRs and Doppler waveforms are within normal bilaterally. No evidence of arterial insufficiency of either leg. Great toew pressures are above the healing index bilaterally. Siddhartha Figueroa MD (Electronically Signed) Final Date- 19 Mar 2010 18-50 This is an abbreviated report. The original report with measurements and velocities can be obtained from the vascular lab. Museum Exhibit Technician- SIDDHARTHA FIGUEROA M.D Reading Physician- SIDDHARTHA FIGUEROA M.D Released Date Time- 03/19/10 1851 Ling Regalado MD [facility] STAR CARD HISTORICAL Fi nal Result * NM LIVER SPLEEN (02/27/2010 9:54 AM EDT) Anatomical Region Laterality Modality Other 02/27/2010 9:54 AM EDT Narrative 02/27/2010 4:23 PM EDT WAITING RM/W ORDER Liver/spleen scan, 02/27/2010. History- Possible liver enlargement. Diabetic with hypercholesterolemia. 6.8 mCi of Tc-99m sulfur colloid administered intravenously. Comparison- No prior liver/spleen scans. There is homogeneous radionuclide uptake within the liver and spleen. They appear normal in contour and are without focal defect. Liver appears upper limits of normal measuring approximately 15 cm in length at the midclavicular line. Spleen is normal in size. There is no colloid shift. Impression- Upper limits of normal size of the liver. Otherwise unremarkable liver/spleen scan. Museum Exhibit Technician- AWILDA Mijares Physician- ALVERTO SMILEY MD Released Date Time- 02/27/10 1625 Procedure Note Alverto Smiley MD - 02/27/2010 WAITING RM/W ORDER Liver/spleen scan, 02/27/2010. History- Possible liver enlargement. Diabetic with hypercholesterolemia. 6.8 mCi of Tc-99m sulfur colloid administered intravenously. Comparison- No prior liver/spleen scans. There is homogeneous radionuclide uptake within the liver and spleen. They appear normal in contour and are without focal defect. Liver appears upper limits of normal measuring approximately 15 cm in length at the midclavicular line. Spleen is normal in size. There is no colloid shift. Impression- Upper limits of normal size of the liver. Otherwise unremarkable liver/spleen scan. Museum Exhibit Technician- AWILDA GROVER Reading Physician- ALVERTO SMILEY MD Released Date Time- 02/27/10 1625 Ahmet Quezada MD [facility] HISTORICAL Final Result * VA LOWER EXT VENOUS UNILAT (02/26/2010 2:15 PM EDT) Anatomical Region Laterality Modality Other 02/26/2010 2:15 PM EDT Narrative 02/26/2010 5:47 PM EDT Critical Result- No Critical Finding HISTORY- Left leg pain FINDINGS- The deep veins of the left lower extremity are patent and compressible. Normal doppler characteristics of spontaneous, phasic flow and augmentation to distal compression are demonstrated throughout the deep venous system of the left lower extremity. No reflux is noted.. CONCLUSIONS No evidence of deep vein thrombosis identified in the left lower extremity. Siddhartha Figueroa MD (Electronically Signed) Final Date- 26 February 2010 1747 This is an abbreviated report. The original report with measurements and velocities can be obtained from the vascular lab. Museum Exhibit Technician- SIDDHARTHA FIGUEROA M.D Reading Physician- SIDDHARTHA FIGUEROA M.D Released Date Time- 02/26/10 1748 Procedure Note Siddhartha Figueroa MD - 02/26/2010 Critical Result- No Critical Finding HISTORY- Left leg pain FINDINGS- The deep veins of the left lower extremity are patent and compressible. Normal doppler characteristics of spontaneous, phasic flow and augmentation to distal compression are demonstrated throughout the deep venous system of the left lower extremity. No reflux is noted.. CONCLUSIONS No evidence of deep vein thrombosis identified in the left lower extremity. Siddhartha Figueroa MD (Electronically Signed) Final Date- 26 February 2010 This is an abbreviated report. The original report with measurements and velocities can be obtained from the vascular lab. Museum Exhibit Technician- SIDDHARTHA FIGUEROA M.D Reading Physician- SIDDHARTHA FIGUEROA M.D Released Date Time- 02/26/10 1748 Ahmet Quezada MD [facility] Final Result * EK EKG REG (12/24/2009 1:00 PM EST) Only the most recent of3 resultswithin the time period is included. Anatomical Region Laterality Modality Other 12/24/2009 1:00 PM EST Narrative 12/24/2009 5:13 PM EST Sinus rhythm Low QRS voltages in precordial leads No significant change from earlier record Borderline ECG Museum Exhibit Technician- HERO HARRINGTON MD Reading Physician- HERO HARRINGTON MD Released Date Time- 12/24/09 1713 Procedure Note Hero Harrington - 01/16/2010 Sinus rhythm Low QRS voltages in precordial leads No significant change from earlier record Borderline ECG Museum Exhibit Technician- HERO HARRINGTON MD Reading Physician- HERO HARRINGTON MD Released Date Time- 12/24/09 1713 us Bart Winters MD [facility] STAR CARD HISTORICAL Final Result * MM DIG DIAG SABAS PANEL W/CAD (12/08/2009 12:28 PM EST) Anatomical Region Laterality Modality Other 12/08/2009 12:2 8 PM EST Narrative 12/09/2009 8:39 AM EST Procedure-MM DIG DIAG SABAS PANEL W/CAD MM DIGITAL DIAG BILAT PANEL Bilateral CC and MLO view(s) were taken. No prior studies available for comparison. There are scattered fibroglandular densities. IMPRESSION- No radiographic evidence of malignancy ([id number]) RECOMMENDATION- Routine screening mammogram in 1 year. Manage patient on clinical basis. Images fail to explain clinical findings. * The patient with a palpable abnormality, unexplained by breast imaging, should be managed on clinical basis by the attending physician. * Breast imaging has a false negative rate of 15%. * The patient was notified by mail of the results of this examination. The mammogram was reviewed by a Radiologist and CAD. Museum Exhibit Technician- BEE MONACO Reading Physician- CLEVE BUSH MD Released Date Time- 12/09/09 1621 Procedure Note Cleve Bush R - 01/16/2010 Procedure-MM DIG DIAG SABAS PANEL W/CAD MM DIGITAL DIAG BILAT PANEL Bilateral CC and MLO view(s) were taken. No prior studies available for comparison. There are scattered fibroglandular densities. IMPRESSION- No radiographic evidence of malignancy ([id number]) RECOMMENDATION- Routine screening mammogram in 1 year. Manage patient on clinical basis. Images fail to explain clinical findings. * The patient with a palpable abnormality, unexplained by breast imaging, should be managed on clinical basis by the attending physician. * Breast imaging has a false negative rate of 15%. * The patient was notified by mail of the results of this examination. The mammogram was reviewed by a Radiologist and CAD. Museum Exhibit Technician- BEE Mijares Physician- CLEVE BUSH MD Released Date Time- 12/09/09 1621 us Bryant Post MD [facility] STAR RAD HISTORICAL Final Result * US PELVIC MASS SONOGRAPHY (11/01/2009 11:08 AM EST) Anatomical Region Laterality Modality Other 11/01/2009 11:0 8 AM EST Narrative 11/01/2009 2:23 PM EST Transabdominal/endovaginal pelvic ultrasound- Clinical history- Recurrent pelvic pain with irregular bleeding. No comparison ultrasound studies. Comparison with 10/30/2009 CT exam. Real-time grayscale transabdominal/endovaginal pelvic ultrasound performed. The uterus is enlarged and anteverted in position measuring 14.0 x 7.2 x 6.5 cm. Multiple scattered cervical nabothian cysts. A dominant anterior fundal fibroid is present (2.9 x 2.3 cm). The risk control representative also questioned a small fibroid within the lower uterine segment (1.1 x 1.3 cm). The endometrium measures 5 mm. No focal adnexal mass or free fluid collection. The ovaries appear symmetric in size. Right ovary- 2.1 x 1.3 x 2.6 cm. Left ovary- 1.9 x 1.1 x 1.2 cm. Impression- 1. Normal ovaries. 2. Enlarged, anteverted uterus. Several intramural fibroids are suspected with the largest dominant fundal fibroid measuring 2.9 x 2.3 cm. Please see above detailed discussion. Joanne SANDERS DO Released Date Time- 11/01/091457 Procedure Note Sarkis Sanders - 01/16/2010 Transabdominal/endovaginal pelvic ultrasound- Clinical history- Recurrent pelvic pain with irregular bleeding. No comparison ultrasound studies. Comparison with 10/30/2009 CT exam. Real-time grayscale transabdominal/endovaginal pelvic ultrasound performed. The uterus is enlarged and anteverted in position measuring 14.0 x 7.2 x 6.5 cm. Multiple scattered cervical nabothian cysts. A dominant anterior fundal fibroid is present (2.9 x 2.3 cm). The risk control representative also questioned a small fibroid within the lower uterine segment (1.1 x 1.3 cm). The endometrium measures 5 mm. No focal adnexal mass or free fluid collection. The ovaries appear symmetric in size. Right ovary- 2.1 x 1.3 x 2.6 cm. Left ovary- 1.9 x 1.1 x 1.2 cm. Impression- 1. Normal ovaries. 2. Enlarged, anteverted uterus. Several intramural fibroids are suspected with the largest dominant fundal fibroid measuring 2.9 x 2.3 cm. Please see above detailed discussion. Joanne Nieves- SARKIS SANDERS DO Released Date Time- 11/01/091457 Andreea Robertson MD [facility] [place] HISTORICAL Final Result * XR ABDOMEN (11/01/2009 1:15 AM EST) Anatomical Region Laterality Modality Other 11/01/2009 1:15 AM EST Narrative 11/01/2009 9:33 AM EST KUB only KUB abdomen- Generalized abdominal pain. No recent comparison films. There is visualized contrast scattered throughout the colon from recent CT exam. Nonobstructive bowel gas pattern. No visualized free air collection. Impression- No evidence of bowel obstruction. Residual contrast within the colon. Joanne SANDERS DO Released Date Time- 11/01/09946 Procedure Note Sarkis Sanders - 01/16/2010 KUB only KUB abdomen- Generalized abdominal pain. No recent comparison films. There is visualized contrast scattered throughout the colon from recent CT exam. Nonobstructive bowel gas pattern. No visualized free air collection. Impression- No evidence of bowel obstruction. Residual contrast within the colon. Joanne SANDERS DO Released Date Time- 11/01/09946 Sven Miller MD [facility] [place] HISTORICAL Fi nal Result * XR CHEST PA & LATERAL (10/21/2009 2:24 PM EST) Only the most recent of3 resultswithin the time period is included. Anatomical Region Laterality Modality Other 10/21/2009 2:24 PM EST Narrative 10/21/2009 6:51 PM EST Chest, PA and lateral, 10/21/2009. Clinical History- A 39-year-old with chronic shortness of breath. Findings- Frontal and lateral views of the chest compared to 05/13/2008 and 03/13/2009. Cardiac size and pulmonary vascularity are stable and within normal limits. Lungs are stable and clear. No focal consolidations. No pleural effusions. Persistent mild elevation of the right hemidiaphragm. Impression- 1. Stable chest. No acute cardiopulmonary disease. Museum Exhibit TechnicianJulio Mijares Physician- BEV LOPEZ MD Released Date Time- 10/22/09 1108 Procedure Note Bev Lopez - 01/16/2010 Chest, PA and lateral, 10/21/2009. Clinical History- A 39-year-old with chronic shortness of breath. Findings- Frontal and lateral views of the chest compared to 05/13/2008 and 03/13/2009. Cardiac size and pulmonary vascularity are stable and within normal limits. Lungs are stable and clear. No focal consolidations. No pleural effusions. Persistent mild elevation of the right hemidiaphragm. Impression- 1. Stable chest. No acute cardiopulmonary disease. Museum Exhibit Technicianrosenda Mijares Physician- BEV LOPEZ MD Released Date Time- 10/22/09 1108 Graciela Varner MD [facility] RAD HISTORICAL F inal Result * XR BILAT KNEE 3 VIEWS (08/29/2009 10:03 AM EDT) Only the most recent of2 resultswithin the time period is included. Anatomical Region Laterality Modality Other 08/29/2009 10:0 3 AM EDT Narrative 08/29/2009 3:04 PM EDT Three views of each knee- 08/29/2009 Indication- Pain. Findings- AP, lateral and sunrise views of each knee demonstrate tricompartmental osteoarthritis bilaterally with relative preservation of joint spaces. No fractures, dislocations or bony lesions. No joint effusions. Impression- Mild tricompartmental osteoarthritis both knees. Museum Exhibit Technician- PAM Mijares Physician- LATONYA GOMEZ M.D. Released Date Time- 08/29/09 160 Procedure Note Latonya Gomez - 01/16/2010 Three views of each knee- 08/29/2009 Indication- Pain. Findings- AP, lateral and sunrise views of each knee demonstrate tricompartmental osteoarthritis bilaterally with relative preservation of joint spaces. No fractures, dislocations or bony lesions. No joint effusions. Impression- Mild tricompartmental osteoarthritis both knees. Museum Exhibit Technician- PAM Mijares Physician- LATONYA GOMEZ M.D. Released Date Time- 08/29/09 160 Graciela Varner MD [facility] RAD HISTORICAL F inal Result * US LIVER-HEPATIC SONOGRAPHY (04/02/2009 2:40 PM EDT) Anatomical Region Laterality Modality Other 04/02/2009 2:40 PM EDT Narrative 04/02/2009 5:45 PM EDT WAITING RM/W ORDER Right upper quadrant liver ultrasound, 04/02/2009. Comparison- None. History- Elevated LFTs. Findings- Liver diffusely echogenic, consistent with fatty infiltration. Gallbladder normal, no gallstones. Visualized portions of the pancreas normal. Common bile duct 3 mm in diameter, which is normal. Impression- Fatty liver. Joanne RICHEY M.D. Released Date Time- 04/02/091838 Procedure Note Vinh Munoz - 01/15/2010 WAITING RM/W ORDER Right upper quadrant liver ultrasound, 04/02/2009. Comparison- None. History- Elevated LFTs. Findings- Liver diffusely echogenic, consistent with fatty infiltration. Gallbladder normal, no gallstones. Visualized portions of the pancreas normal. Common bile duct 3 mm in diameter, which is normal. Impression- Fatty liver. Museum Exhibit TechnicianJulio Mijares PhysicianJulio RICHEY M.D. Released Date Time- 04/02/091838 Pooja Kim MD [facility] STAR RAD HISTORICA L Final Result * XR LUMBOSACRAL SPINE (03/13/2009 10:40 AM EDT) Only the most recent of2 resultswithin the time period is included. Anatomical Region Laterality Modality Other 03/13/2009 10:4 0 AM EDT Narrative 03/13/2009 12:18 PM EDT PER KEON AT OFFICE Lumbar spine, 03/13/2009. Indication- Low back pain, pain in legs. Findings- AP and lateral lumbar spine is compared to the previous examination, 08/19/2008. No significant interval change. Five lumbar vertebral bodies. No fractures, subluxations or bony lesions. Otherwise negative. Impression- Negative, stable lumbar spine films. Museum Exhibit TechnicianJulio Mijares Physician- LATONYA GOMEZ M.D. Released Date Time- 03/13/09 1505 Procedure Note Latonya Gomez - 01/15/2010 PER KEON AT OFFICE Lumbar spine, 03/13/2009. Indication- Low back pain, pain in legs. Findings- AP and lateral lumbar spine is compared to the previous examination, 08/19/2008. No significant interval change. Five lumbar vertebral bodies. No fractures, subluxations or bony lesions. Otherwise negative. Impression- Negative, stable lumbar spine films. Museum Exhibit Technician- PAM Mijares Physician- LATONYA GOMEZ M.D. Released Date Time- 03/13/09 1505 Pooja Kim MD [facility] L Final Result * XR FINGER(S) (08/12/2007 7:54 PM EDT) Anatomical Region Laterality Modality Other 08/12/2007 7:54 PM EDT Narrative 08/13/2007 10:00 AM EDT BED 46 ATTN RING Examination of the fourth right finger. Indications- Pain, status post trauma. History- Pain, status post trauma. Three views of the fourth right finger demonstrate severe fracturing of the distal phalanx. There is comminution, there is distraction. There is significant overlying soft tissue defect. This appears to represent a severe crush injury. Impression- Severe crush injury of the distal phalanx of the right forefinger, with bony and soft tissue abnormality. Museum Exhibit Technician- LOBO Mijares Radiologist- GERRY SHELL M.D. Released Date Time- 08/13/072108 Procedure Note Gerry Shell - 01/14/2010 BED 46 ATTN RING Examination of the fourth right finger. Indications- Pain, status post trauma. History- Pain, status post trauma. Three views of the fourth right finger demonstrate severe fracturing of the distal phalanx. There is comminution, there is distraction. There is significant overlying soft tissue defect. This appears to represent a severe crush injury. Impression- Severe crush injury of the distal phalanx of the right forefinger, with bony and soft tissue abnormality. Museum Exhibit TechnicianJulio Naqvi- GERRY SHELL M.D. Released Date Time- 08/13/072108 [facility] STAR RAD HI STORICAL Final Result Visit Diagnoses Diagnosis Start Date Pyelonephritis Pyelonephritis, unspecified 03/09/2011 Unspecified essential hypertension 03/09/2011 Type II or unspecified type diabetes mellitus without mention of complication, not stated as uncontrolled 03/09/2011 Pelvic pain in female Unspecified symptom associated with female genital organs 04/20/2011 Fibroids Leiomyoma of uterus, unspecified 04/20/2011 Other screening mammogram 04/20/2011 Abdominal pain, other specified site 05/31/2011 Uterine fibroid Leiomyoma of uterus, unspecified 05/31/2011 Constipation Unspecified constipation 05/31/2011 Uterine fibroid Leiomyoma of uterus, unspecified 06/11/2011 Fibroid, uterine Leiomyoma of uterus, unspecified 06/14/2011 Dyspnea Other dyspnea and respiratory abnormality 07/28/2011 Diaphoresis Generalized hyperhidrosis 07/28/2011 Chest pain Chest pain, unspecified 07/28/2011 Diabetes Type II or unspecified type diabetes mellitus without mention of complication, not stated as uncontrolled 07/28/2011 Chest pressure Other chest pain 07/28/2011 Abdominal pain, other specified site 07/28/2011 Chest pressure Other chest pain 08/02/2011 Abdominal pain, other specified site 08/02/2011 Chest pain Chest pain, unspecified 08/26/2011 Lightheadedness Dizziness and giddiness 08/26/2011 Diabetes mellitus (HCC) Type II or unspecified type diabetes mellitus without mention of complication, not stated as uncontrolled 08/26/2011 Hyperlipidemia Other and unspecified hyperlipidemia 08/26/2011 Hypothyroid Unspecified hypothyroidism 08/26/2011 Nausea Nausea alone 08/26/2011 Morbid obesity (HCC) Morbid obesity 08/26/2011 CAD (coronary artery disease) Coronary atherosclerosis of unspecified type of vessel, ho-chunk or graft 08/26/2011 Leiomyoma of uterus, unspecified 09/20/2011 Pain Generalized pain 10/11/2011 Chest pain Chest pain, unspecified 02/29/2012 DM (diabetes mellitus) (HCC) Type II or unspecified type diabetes mellitus without mention of complication, not stated as uncontrolled 02/29/2012 Obesity Obesity, unspecified 02/29/2012 Dyslipidemia Other and unspecified hyperlipidemia 02/29/2012 Right hip pain Pain in joint, pelvic region and thigh 03/21/2012 Bursitis Other bursitis disorders 03/21/2012 Enthesopathy of hip region 03/21/2012 Type II or unspecified type diabetes mellitus without mention of complication, not stated as uncontrolled 03/21/2012 DM (diabetes mellitus) (HCC) Type II or unspecified type diabetes mellitus without mention of complication, not stated as uncontrolled 04/27/2012 Pelvic pain Unspecified symptom associated with female genital organs 09/20/2012 Vaginal bleeding Other specified noninflammatory disorder of vagina 09/20/2012 Type II or unspecified type diabetes mellitus without mention of complication, not stated as uncontrolled 09/20/2012 Acquired absence of both cervix and uterus 09/20/2012 Pelvic pain Unspecified symptom associated with female genital organs 10/10/2012 Vaginal bleeding Other specified noninflammatory disorder of vagina 10/10/2012 URI (upper respiratory infection) Acute upper respiratory infections of unspecified site 11/06/2012 Abnormal vaginal bleeding Other specified noninflammatory disorder of vagina 11/15/2012 Ankle sprain Sprain of ankle, unspecified site 12/09/2012 Acute bronchitis 01/17/2013 Asthma exacerbation Unspecified asthma, with exacerbation 01/17/2013 Vomiting and diarrhea Vomiting alone 01/17/2013 Abdominal pain, other specified site 01/17/2013 Diarrhea 01/17/2013 Pain Generalized pain 03/26/2013 Chest pain Chest pain, unspecified 04/16/2013 Unspecified essential hypertension 04/16/2013 Other and unspecified hyperlipidemia 04/16/2013 Type II or unspecified type diabetes mellitus without mention of complication, not stated as uncontrolled 04/16/2013 Chest pain Chest pain, unspecified 04/16/2013 Unspecified essential hypertension 04/16/2013 Other and unspecified hyperlipidemia 04/16/2013 Type II or unspecified type diabetes mellitus without mention of complication, not stated as uncontrolled 04/16/2013 Ventral hernia Ventral hernia, unspecified, without mention of obstruction or gangrene 10/07/2013 Ventral hernia, unspecified, without mention of obstruction or gangrene 10/07/2013 Abdominal pain, other specified site 10/07/2013 Ventral hernia, recurrent Incisional hernia without mention of obstruction or gangrene 10/17/2013 Obesity Obesity, unspecified 10/17/2013 Back pain Backache, unspecified 11/16/2013 Ventral hernia, recurrent Incisional hernia without mention of obstruction or gangrene 11/28/2013 Ventral hernia, recurrent Incisional hernia without mention of obstruction or gangrene 11/28/2013 Obesity Obesity, unspecified 11/28/2013 DM (diabetes mellitus) (HCC) Type II or unspecified type diabetes mellitus without mention of complication, not stated as uncontrolled 11/28/2013 Abdominal pain Abdominal pain, unspecified site 12/19/2013 History of umbilical hernia repair Personal history of surgery to other organs 12/19/2013 Dysfunctional uterine bleeding Other disorder of menstruation and other abnormal bleeding from female genital tract 12/19/2013 Other disorder of menstruation and other abnormal bleeding from female genital tract 12/19/2013 Abdominal pain, periumbilic 12/19/2013 Type II or unspecified type diabetes mellitus without mention of complication, not stated as uncontrolled 12/19/2013 Colicky abdominal pain Colic 01/10/2014 Abdominal pain, other specified site 01/10/2014 Ventral hernia, unspecified, without mention of obstruction or gangrene 01/10/2014 Type II or unspecified type diabetes mellitus without mention of complication, not stated as uncontrolled 01/10/2014 Unspecified essential hypertension 01/10/2014 Infected wound, initial encounter 02/08/2014 Wrist pain, right Pain in joint, forearm 04/20/2014 Hand pain, right Pain in limb 04/20/2014 History of carpal tunnel syndrome Personal history of other disorders of nervous system and sense organs 04/20/2014 Pain in joint, ankle and foot, right 04/20/2014 Pain in limb 04/20/2014 Right hand pain Pain in limb 04/21/2014 Hand strain, right, initial encounter 04/21/2014 Otitis externa, right 06/04/2014 Otitis media, right Unspecified otitis media 06/04/2014 Infective otitis externa, unspecified 06/04/2014 Unspecified otitis media 06/04/2014 Dyslipidemia Other and unspecified hyperlipidemia 09/02/2014 DM (diabetes mellitus) (HCC) Type II or unspecified type diabetes mellitus without mention of complication, not stated as uncontrolled 09/02/2014 Dyslipidemia Other and unspecified hyperlipidemia 09/02/2014 Hypothyroid Unspecified hypothyroidism 09/02/2014 DM (diabetes mellitus) (HCC) Type II or unspecified type diabetes mellitus without mention of complication, not stated as uncontrolled 09/02/2014 Dyslipidemia Other and unspecified hyperlipidemia 09/02/2014 Morbid obesity (HCC) Morbid obesity 09/02/2014 Hypothyroid Unspecified hypothyroidism 09/02/2014 Chronic knee pain, unspecified laterality 09/02/2014 Herniated disc Displacement of intervertebral disc, site unspecified, without myelopathy 09/02/2014 Neuropathy Mononeuritis of unspecified site 09/02/2014 Breast cancer screening Breast screening, unspecified 09/02/2014 Flu vaccine need Need for prophylactic vaccination and inoculation against influenza 09/02/2014 DM (diabetes mellitus) ([facility]) Type II or unspecified type diabetes mellitus without mention of complication, not stated as uncontrolled 2014 DM (diabetes mellitus) (HCC) Type II or unspecified type diabetes mellitus without mention of complication, not stated as uncontrolled 09/12/2014 Chest pain Chest pain, unspecified 09/12/2014 Hyperlipidemia LDL goal <100 Other and unspecified hyperlipidemia 09/12/2014 Hypothyroidism Unspecified hypothyroidism 09/12/2014 Heart failure, chronic, systolic 09/12/2014 UTI (urinary tract infection) Urinary tract infection, site not specified 09/20/2014 Yeast infection Other and unspecified mycoses 09/20/2014 Lumbar disc disease Other and unspecified disc disorder of lumbar region 09/20/2014 DM (diabetes mellitus) ([facility]) Type II or unspecified type diabetes mellitus without mention of complication, not stated as uncontrolled 12/02/2014 Hypothyroidism Unspecified hypothyroidism 12/02/2014 Dyslipidemia Other and unspecified hyperlipidemia 12/02/2014 Bladder infection Cystitis, unspecified 12/02/2014 DM (diabetes mellitus) (HCC) Type II or unspecified type diabetes mellitus without mention of complication, not stated as uncontrolled 12/02/2014 Vaginal irritation Unspecified noninflammatory disorder of vagina 12/02/2014 Hypothyroidism Unspecified hypothyroidism 12/02/2014 Encounter for diabetes education 12/09/2014 Injection education, encounter for 12/09/2014 Frequent urination Urinary frequency 12/09/2014 Neuropathy Mononeuritis of unspecified site 12/09/2014 Hyperlipidemia LDL goal <100 Other and unspecified hyperlipidemia 12/09/2014 Hypothyroid Unspecified hypothyroidism 12/09/2014 Dyslipidemia Other and unspecified hyperlipidemia 12/09/2014 DM (diabetes mellitus) (HCC) Type II or unspecified type diabetes mellitus without mention of complication, not stated as uncontrolled 12/09/2014 Neuropathy Mononeuritis of unspecified site 03/12/2015 Dyslipidemia Other and unspecified hyperlipidemia 03/12/2015 DM (diabetes mellitus) (HCC) Type II or unspecified type diabetes mellitus without mention of complication, not stated as uncontrolled 03/12/2015 Hyperlipidemia LDL goal <100 Other and unspecified hyperlipidemia 03/12/2015 Hypothyroidism Unspecified hypothyroidism 03/12/2015 GERD (gastroesophageal reflux disease) Esophageal reflux 03/12/2015 Abdominal pain, other specified site 03/12/2015 DM (diabetes mellitus) ([facility]) Type II or unspecified type diabetes mellitus without mention of complication, not stated as uncontrolled 03/17/2015 Hyperlipidemia LDL goal <100 Other and unspecified hyperlipidemia 03/17/2015 Hypothyroidism Unspecified hypothyroidism 03/17/2015 Other specified hypothyroidism 04/23/2015 Hyperlipidemia LDL goal <100 Other and unspecified hyperlipidemia 04/23/2015 Other specified hypothyroidism 04/23/2015 Morbid obesity with BMI of 50.0-59.9, adult ([facility]) 04/23/2015 Breast cancer screening Breast screening, unspecified 04/23/2015 Type 2 diabetes mellitus with neurological manifestations, uncontrolled 04/23/2015 Diabetic polyneuropathy associated with type 2 diabetes mellitus (HCC) 04/23/2015 Other screening mammogram 05/07/2015 Routine gynecological examination 05/15/2015 Special screening examination for human papillomavirus (HPV) 05/15/2015 Special screening examination for human papillomavirus (HPV) 05/15/2015 Routine gynecological examination 05/15/2015 Vaginal yeast infection Candidiasis of vulva and vagina 05/15/2015 Type 2 diabetes mellitus with neurological manifestations, uncontrolled 06/12/2015 Ventral hernia, recurrent Incisional hernia without mention of obstruction or gangrene 06/12/2015 Diabetic polyneuropathy associated with type 2 diabetes mellitus (HCC) 06/12/2015 Morbid obesity with BMI of 50.0-59.9, adult ([facility]) 06/12/2015 Other specified hypothyroidism 06/12/2015 Hyperlipidemia LDL goal <100 Other and unspecified hyperlipidemia 06/12/2015 Type 2 diabetes mellitus with neurological manifestations, uncontrolled 06/17/2015 Abdominal pain, right upper quadrant 07/03/2015 Dizziness Dizziness and giddiness 07/03/2015 Right upper quadrant pain Abdominal pain, right upper quadrant 07/03/2015 Nausea Nausea alone 07/03/2015 Diaphoresis Generalized hyperhidrosis 07/08/2015 Type 2 diabetes mellitus with neurological manifestations, uncontrolled ([facility]) 07/08/2015 Medication intolerance Other drug allergy 07/08/2015 Nausea Nausea alone 07/08/2015 Other specified hypothyroidism 07/08/2015 Diaphoresis Generalized hyperhidrosis 07/08/2015 Recurrent ventral hernia Incisional hernia without mention of obstruction or gangrene 07/11/2015 Asthmatic bronchitis, mild intermittent, with acute exacerbation 07/21/2015 Diabetic polyneuropathy associated with type 2 diabetes mellitus (HCC) 07/21/2015 Polyneuropathy Unspecified hereditary and idiopathic peripheral neuropathy 07/21/2015 Pre-operative respiratory examination 07/24/2015 Ventral hernia, recurrent Incisional hernia without mention of obstruction or gangrene 07/24/2015 Ventral hernia without obstruction or gangrene Ventral hernia, unspecified, without mention of obstruction or gangrene 07/31/2015 Pre-operative respiratory examination 07/31/2015 Ventral hernia, recurrent Incisional hernia without mention of obstruction or gangrene 07/31/2015 Nausea Nausea alone 08/11/2015 Post-operative nausea and vomiting Nausea with vomiting 08/13/2015 Flu vaccine need Need for prophylactic vaccination and inoculation against influenza 08/13/2015 Post-operative nausea and vomiting Nausea with vomiting 08/13/2015 Surgery follow-up Follow-up examination, following unspecified surgery 08/13/2015 Leukocytosis Leukocytosis, unspecified 08/19/2015 Other fatigue 08/19/2015 Surgery follow-up Follow-up examination, following unspecified surgery 09/03/2015 Post-menopausal Asymptomatic postmenopausal status (age-related) (natural) 09/12/2015 Leukocytosis Leukocytosis, unspecified 09/12/2015 Other fatigue 09/12/2015 Type 2 diabetes mellitus with neurological manifestations, uncontrolled 09/12/2015 Dyslipidemia Other and unspecified hyperlipidemia 09/12/2015 Post-menopausal Asymptomatic postmenopausal status (age-related) (natural) 09/12/2015 Hyperlipidemia LDL goal <100 Other and unspecified hyperlipidemia 09/12/2015 SOB (shortness of breath) Shortness of breath 09/12/2015 Other specified hypothyroidism 11/13/2015 Hyperlipidemia LDL goal <100 Other and unspecified hyperlipidemia 11/13/2015 Diabetic polyneuropathy associated with type 2 diabetes mellitus (HCC) 11/13/2015 Type 2 diabetes mellitus with peripheral neuropathy (HCC) 11/13/2015 Hypothyroidism (acquired) Unspecified hypothyroidism 03/17/2016 Type 2 diabetes mellitus with peripheral neuropathy (HCC) 03/17/2016 Hyperlipidemia LDL goal <100 Other and unspecified hyperlipidemia 03/17/2016 Other specified hypothyroidism 03/17/2016 Dyslipidemia Other and unspecified hyperlipidemia 03/17/2016 Hyperlipidemia LDL goal <100 Other and unspecified hyperlipidemia 03/17/2016 Other specified hypothyroidism 03/17/2016 Morbid obesity with BMI of 45.0-49.9, adult (HCC) 03/17/2016 Type 2 diabetes mellitus with peripheral neuropathy (HCC) 03/17/2016 Other specified hypothyroidism 03/22/2016 Visit for screening mammogram Other screening mammogram 10/01/2016 Other specified hypothyroidism 11/10/2016 Hyperlipidemia LDL goal <100 Other and unspecified hyperlipidemia 11/10/2016 Type 2 diabetes mellitus with peripheral neuropathy (HCC) 11/10/2016 Heart failure, unspecified heart failure chronicity, unspecified heart failure type 11/10/2016 Flu vaccine need Need for prophylactic vaccination and inoculation against influenza 11/10/2016 Type 2 diabetes mellitus with peripheral neuropathy (HCC) 11/10/2016 Morbid obesity with BMI of 45.0-49.9, adult ([facility]) 11/10/2016 Diabetic polyneuropathy associated with type 2 diabetes mellitus (HCC) 11/10/2016 Other specified hypothyroidism 11/10/2016 Hyperlipidemia LDL goal <100 Other and unspecified hyperlipidemia 11/10/2016 Chronic bilateral low back pain without sciatica 11/10/2016 Heart failure, unspecified heart failure chronicity, unspecified heart failure type 11/10/2016 Other specified hypothyroidism 11/26/2016 Type 2 diabetes mellitus with peripheral neuropathy (HCC) 11/26/2016 Hyperlipidemia LDL goal <100 Other and unspecified hyperlipidemia 11/26/2016 Diabetic polyneuropathy associated with type 2 diabetes mellitus (HCC) 06/15/2017 Chronic bilateral low back pain without sciatica 06/15/2017 Diabetic polyneuropathy associated with type 2 diabetes mellitus (HCC) 06/27/2017 Chronic bilateral low back pain without sciatica 06/27/2017 Hyperlipidemia LDL goal <100 Other and unspecified hyperlipidemia 06/27/2017 Other specified hypothyroidism 06/27/2017 Type 2 diabetes mellitus with peripheral neuropathy (HCC) 06/27/2017 Type 2 diabetes mellitus with peripheral neuropathy (HCC) 06/28/2017 Hyperlipidemia LDL goal <100 Other and unspecified hyperlipidemia 06/28/2017 Other specified hypothyroidism 06/28/2017 Heart failure, unspecified heart failure chronicity, unspecified heart failure type 07/13/2017 Heart failure, unspecified heart failure chronicity, unspecified heart failure type 10/09/2017 Heart failure, unspecified heart failure chronicity, unspecified heart failure type 01/06/2018 Diabetic polyneuropathy associated with type 2 diabetes mellitus (HCC) 01/06/2018 Chronic bilateral low back pain without sciatica 01/06/2018 Type 2 diabetes mellitus with peripheral neuropathy (HCC) 01/10/2018 Heart failure, unspecified heart failure chronicity, unspecified heart failure type 01/10/2018 Other specified hypothyroidism 01/10/2018 Hyperlipidemia LDL goal <100 Other and unspecified hyperlipidemia 01/10/2018 Diabetic polyneuropathy associated with type 2 diabetes mellitus (HCC) 01/10/2018 Chronic bilateral low back pain without sciatica 01/10/2018 SOB (shortness of breath) Shortness of breath 01/10/2018 Encounter for screening mammogram for breast cancer 01/10/2018 Hyperlipidemia LDL goal <100 Other and unspecified hyperlipidemia 01/10/2018 Other specified hypothyroidism 01/10/2018 Type 2 diabetes mellitus with peripheral neuropathy (HCC) 01/10/2018 Annual physical exam Routine general medical examination at a health care facility 01/10/2018 Heart failure, unspecified heart failure chronicity, unspecified heart failure type 01/10/2018 Gastroesophageal reflux disease with esophagitis 01/10/2018 Arthritis of knee Unspecified arthropathy, lower leg 01/10/2018 Postinfectious hypothyroidism Unspecified hypothyroidism 01/12/2018 Type 2 diabetes mellitus with peripheral neuropathy (HCC) 01/12/2018 Encounter for screening mammogram for breast cancer 01/18/2018 Type 2 diabetes mellitus with peripheral neuropathy (HCC) 01/19/2018 Type 2 diabetes mellitus with peripheral neuropathy (HCC) 02/03/2018 Postinfectious hypothyroidism Unspecified hypothyroidism 02/09/2018 Diabetic polyneuropathy associated with type 2 diabetes mellitus (HCC) 02/09/2018 Chronic bilateral low back pain without sciatica 02/09/2018 Arthritis of knee Unspecified arthropathy, lower leg 02/09/2018 SOB (shortness of breath) Shortness of breath 02/09/2018 Type 2 diabetes mellitus with peripheral neuropathy (HCC) 03/03/2018 Type 2 diabetes mellitus with peripheral neuropathy (HCC) 03/05/2018 Need for Tdap vaccination Need for prophylactic vaccination with combined [id number] (DTP) vaccine 03/21/2018 Type 2 diabetes mellitus with peripheral neuropathy (HCC) 04/10/2018 Diabetic polyneuropathy associated with type 2 diabetes mellitus (HCC) 04/12/2018 Chronic bilateral low back pain without sciatica 04/12/2018 Type 2 diabetes mellitus with peripheral neuropathy (HCC) 04/20/2018 Postinfectious hypothyroidism Unspecified hypothyroidism 04/20/2018 Diabetic polyneuropathy associated with type 2 diabetes mellitus (HCC) 04/20/2018 Chronic bilateral low back pain without sciatica 04/20/2018 Type 2 diabetes mellitus with peripheral neuropathy (HCC) 04/20/2018 Postinfectious hypothyroidism Unspecified hypothyroidism 04/20/2018 Morbid obesity with BMI of 45.0-49.9, adult (HCC) 04/20/2018 Sore on leg Ulcer of lower limb, unspecified 05/05/2018 Insomnia, persistent Persistent disorder of initiating or maintaining sleep 05/05/2018 Strain of neck muscle, initial encounter 05/05/2018 Arthritis of knee Unspecified arthropathy, lower leg 05/09/2018 SOB (shortness of breath) Shortness of breath 05/09/2018 Postinfectious hypothyroidism Unspecified hypothyroidism 05/09/2018 Type 2 diabetes mellitus with peripheral neuropathy (HCC) 05/18/2018 Leg swelling Swelling of limb 06/19/2018 Hyperlipidemia LDL goal <100 Other and unspecified hyperlipidemia 07/21/2018 Gastroesophageal reflux disease with esophagitis 07/21/2018 Hyperlipidemia LDL goal <100 Other and unspecified hyperlipidemia 07/30/2018 Heart failure, unspecified heart failure chronicity, unspecified heart failure type 07/31/2018 Hyperlipidemia LDL goal <100 Other and unspecified hyperlipidemia 07/31/2018 Postinfectious hypothyroidism Unspecified hypothyroidism 07/31/2018 Type 2 diabetes mellitus with peripheral neuropathy (HCC) 07/31/2018 Gastroesophageal reflux disease with esophagitis 07/31/2018 Left foot pain Pain in limb 08/02/2018 Atherosclerosis of abdominal aorta Atherosclerosis of aorta 08/02/2018 Heart failure, unspecified heart failure chronicity, unspecified heart failure type 08/02/2018 Diabetic polyneuropathy associated with type 2 diabetes mellitus (HCC) 08/02/2018 Chronic bilateral low back pain without sciatica 08/02/2018 Left foot pain Pain in limb 08/02/2018 Arthritis of knee Unspecified arthropathy, lower leg 08/18/2018 Gastroesophageal reflux disease with esophagitis 09/18/2018 Gastroesophageal reflux disease with esophagitis 10/15/2018 Hyperlipidemia LDL goal <100 Other and unspecified hyperlipidemia 10/15/2018 Gastroesophageal reflux disease with esophagitis 10/24/2018 Hyperlipidemia LDL goal <100 Other and unspecified hyperlipidemia 10/24/2018 Arthritis of knee Unspecified arthropathy, lower leg 10/24/2018 Flu vaccine need Need for prophylactic vaccination and inoculation against influenza 10/26/2018 Heart failure (HCC) Heart failure, unspecified 11/11/2018 Diabetic polyneuropathy associated with type 2 diabetes mellitus (HCC) 11/11/2018 Chronic bilateral low back pain without sciatica 11/11/2018 Diabetic polyneuropathy associated with type 2 diabetes mellitus (HCC) 11/23/2018 Chronic bilateral low back pain without sciatica 11/23/2018 Diabetic polyneuropathy associated with type 2 diabetes mellitus (HCC) 12/03/2018 Chronic bilateral low back pain without sciatica 12/03/2018 Postinfectious hypothyroidism Unspecified hypothyroidism 12/03/2018 Diabetic polyneuropathy associated with type 2 diabetes mellitus (HCC) 12/11/2018 Chronic bilateral low back pain without sciatica 12/11/2018 Type 2 diabetes mellitus with peripheral neuropathy (HCC) 12/11/2018 Atherosclerosis of abdominal aorta Atherosclerosis of aorta 12/11/2018 Morbid obesity with BMI of 45.0-49.9, adult ([facility]) 12/11/2018 Heart failure, unspecified HF chronicity, unspecified heart failure type (HCC) 12/11/2018 Sinusitis, unspecified chronicity, unspecified location 12/11/2018 Gastroesophageal reflux disease with esophagitis 12/28/2018 Postinfectious hypothyroidism Unspecified hypothyroidism 12/28/2018 Hyperlipidemia LDL goal <100 Other and unspecified hyperlipidemia 12/28/2018 Hyperlipidemia LDL goal <100 Other and unspecified hyperlipidemia 12/28/2018 Postinfectious hypothyroidism Unspecified hypothyroidism 12/28/2018 Type 2 diabetes mellitus with peripheral neuropathy (HCC) 12/28/2018 Dizziness Dizziness and giddiness 02/05/2019 Peripheral positional vertigo, unspecified laterality 02/05/2019 Type 2 diabetes mellitus with peripheral neuropathy (HCC) 02/07/2019 Hyperlipidemia LDL goal <100 Other and unspecified hyperlipidemia 02/07/2019 Postinfectious hypothyroidism Unspecified hypothyroidism 02/07/2019 Type 2 diabetes mellitus without complication, unspecified whether long-term insulin use (HCC) 02/07/2019 Encounter for screening mammogram for breast cancer 02/07/2019 Type 2 diabetes mellitus with peripheral neuropathy (HCC) 02/07/2019 Postinfectious hypothyroidism Unspecified hypothyroidism 02/07/2019 Hyperlipidemia LDL goal <100 Other and unspecified hyperlipidemia 02/07/2019 Encounter for gynecological examination without abnormal finding Routine gynecological examination 02/07/2019 Cervical cancer screening Screening for malignant neoplasm of the cervix 02/07/2019 Annual physical exam Routine general medical examination at a health care facility 02/07/2019 Vaginal yeast infection Candidiasis of vulva and vagina 02/07/2019 Encounter for screening mammogram for breast cancer 02/14/2019 Type 2 diabetes mellitus with peripheral neuropathy (HCC) 02/26/2019 Arthritis of knee Unspecified arthropathy, lower leg 02/26/2019 Heart failure (HCC) Heart failure, unspecified 02/26/2019 Screening for cervical cancer Screening for malignant neoplasm of the cervix 02/26/2019 Type 2 diabetes mellitus with peripheral neuropathy (HCC) 03/02/2019 Diabetic polyneuropathy associated with type 2 diabetes mellitus (HCC) 03/09/2019 Chronic bilateral low back pain without sciatica 03/09/2019 Type 2 diabetes mellitus with peripheral neuropathy (HCC) 05/28/2019 Arthritis of knee Unspecified arthropathy, lower leg 05/28/2019 Type 2 diabetes mellitus with peripheral neuropathy (HCC) 05/28/2019 Arthritis of knee Unspecified arthropathy, lower leg 05/28/2019 Type 2 diabetes mellitus with peripheral neuropathy (HCC) 05/29/2019 Heart failure (HCC) Heart failure, unspecified 05/29/2019 High risk medications (not anticoagulants) long-term use Encounter for long-term (current) use of other medications 05/31/2019 Hyperlipidemia LDL goal <100 Other and unspecified hyperlipidemia 05/31/2019 Diabetic polyneuropathy associated with type 2 diabetes mellitus (HCC) 05/31/2019 Chronic bilateral low back pain without sciatica 05/31/2019 Postinfectious hypothyroidism Unspecified hypothyroidism 05/31/2019 Gastroesophageal reflux disease with esophagitis 05/31/2019 Arthritis of knee Unspecified arthropathy, lower leg 05/31/2019 High risk medications (not anticoagulants) long-term use Encounter for long-term (current) use of other medications 05/31/2019 Type 2 diabetes mellitus with peripheral neuropathy (HCC) 05/31/2019 Type 2 diabetes mellitus with peripheral neuropathy (HCC) 08/12/2019 Diabetic polyneuropathy associated with type 2 diabetes mellitus (HCC) 08/12/2019 Chronic bilateral low back pain without sciatica 08/12/2019 Flu vaccine need Need for prophylactic vaccination and inoculation against influenza 08/13/2019 Heart failure (HCC) Heart failure, unspecified 09/02/2019 Type 2 diabetes mellitus with peripheral neuropathy (HCC) 09/02/2019 Diabetic polyneuropathy associated with type 2 diabetes mellitus (HCC) 09/02/2019 Chronic bilateral low back pain without sciatica 09/02/2019 Chronic pain of left knee Pain in joint, lower leg 09/04/2019 Diabetic polyneuropathy associated with type 2 diabetes mellitus (HCC) 09/12/2019 Chronic bilateral low back pain without sciatica 09/12/2019 Chronic pain of left knee Pain in joint, lower leg 09/18/2019 Type 2 diabetes mellitus with peripheral neuropathy (HCC) 09/18/2019 Scar pain Scar condition and fibrosis of skin 09/18/2019 Type 2 diabetes mellitus with peripheral neuropathy (HCC) 09/28/2019 Mid back pain Backache, unspecified 10/16/2019 Pleuritic chest pain Painful respiration 10/16/2019 UTI (urinary tract infection), uncomplicated Urinary tract infection, site not specified 10/18/2019 Arthritis of knee Unspecified arthropathy, lower leg 11/26/2019 Heart failure (HCC) Heart failure, unspecified 11/26/2019 Diabetic polyneuropathy associated with type 2 diabetes mellitus (HCC) 11/26/2019 Chronic bilateral low back pain without sciatica 11/26/2019 Gastroesophageal reflux disease with esophagitis 12/18/2019 Dysuria 12/18/2019 Strain of mid-back, initial encounter 12/18/2019 Arthritis of knee Unspecified arthropathy, lower leg 01/10/2020 Diabetic polyneuropathy associated with type 2 diabetes mellitus (HCC) 01/10/2020 Chronic bilateral low back pain without sciatica 01/10/2020 Heart failure, unspecified HF chronicity, unspecified heart failure type (HCC) 01/23/2020 Type 2 diabetes mellitus with peripheral neuropathy (HCC) 01/23/2020 Atherosclerosis of aorta 01/23/2020 Morbid obesity with BMI of 50.0-59.9, adult ([facility]) 01/23/2020 Viral upper respiratory tract infection Acute upper respiratory infections of unspecified site 01/23/2020 Hyperlipidemia LDL goal <100 Other and unspecified hyperlipidemia 01/23/2020 Postinfectious hypothyroidism Unspecified hypothyroidism 01/23/2020 Medicare annual wellness visit, initial Routine general medical examination at a health care facility 01/23/2020 Diabetic polyneuropathy associated with type 2 diabetes mellitus (HCC) 02/25/2020 Chronic bilateral low back pain without sciatica 02/25/2020 Arthritis of knee Unspecified arthropathy, lower leg 02/25/2020 Type 2 diabetes mellitus with peripheral neuropathy (HCC) 02/25/2020 Heart failure (HCC) Heart failure, unspecified 03/03/2020 Hyperlipidemia LDL goal <100 Other and unspecified hyperlipidemia 03/08/2020 Type 2 diabetes mellitus with peripheral neuropathy (HCC) 03/08/2020 Gastroesophageal reflux disease with esophagitis 03/08/2020 Postinfectious hypothyroidism Unspecified hypothyroidism 03/08/2020 Abscess of abdominal wall Cellulitis and abscess of trunk 04/15/2020 Left foot pain Pain in limb 04/29/2020 Ventral hernia, recurrent Incisional hernia without mention of obstruction or gangrene 04/29/2020 Left foot pain Pain in limb 04/29/2020 Type 2 diabetes mellitus with peripheral neuropathy (HCC) 04/29/2020 Morbid obesity with BMI of 50.0-59.9, adult (HCC) 04/29/2020 Postinfectious hypothyroidism Unspecified hypothyroidism 04/29/2020 Hyperlipidemia LDL goal <100 Other and unspecified hyperlipidemia 04/29/2020 Hepatitis B vaccination not up to date 04/29/2020 Viral upper respiratory tract infection Acute upper respiratory infections of unspecified site 04/30/2020 Type 2 diabetes mellitus with peripheral neuropathy (HCC) 04/30/2020 Hyperlipidemia LDL goal <100 Other and unspecified hyperlipidemia 04/30/2020 Postinfectious hypothyroidism Unspecified hypothyroidism 04/30/2020 Strain of mid-back, initial encounter 05/10/2020 Heart failure (HCC) Heart failure, unspecified 06/08/2020 Postinfectious hypothyroidism Unspecified hypothyroidism 06/09/2020 Diabetic polyneuropathy associated with type 2 diabetes mellitus (HCC) 06/09/2020 Chronic bilateral low back pain without sciatica 06/09/2020 Type 2 diabetes mellitus with peripheral neuropathy (HCC) 06/21/2020 Heart failure (HCC) Heart failure, unspecified 07/07/2020 Hyperlipidemia LDL goal <100 Other and unspecified hyperlipidemia 07/07/2020 Heart failure (HCC) Heart failure, unspecified 07/12/2020 Diabetic polyneuropathy associated with type 2 diabetes mellitus (HCC) 09/17/2020 Chronic bilateral low back pain without sciatica 09/17/2020 Arthritis of knee Unspecified arthropathy, lower leg 09/17/2020 Gastroesophageal reflux disease with esophagitis without hemorrhage 09/17/2020 Flu vaccine need Need for prophylactic vaccination and inoculation against influenza 09/17/2020 Type 2 diabetes mellitus with peripheral neuropathy (HCC) 10/15/2020 Gastroesophageal reflux disease with esophagitis 10/16/2020 SOB (shortness of breath) Shortness of breath 11/12/2020 Postinfectious hypothyroidism Unspecified hypothyroidism 11/12/2020 Hyperlipidemia LDL goal <100 Other and unspecified hyperlipidemia 11/12/2020 Type 2 diabetes mellitus with peripheral neuropathy (HCC) 11/12/2020 Heart failure (HCC) Heart failure, unspecified 11/12/2020 Type 2 diabetes mellitus with peripheral neuropathy (HCC) 11/12/2020 Postinfectious hypothyroidism Unspecified hypothyroidism 11/12/2020 Gastroesophageal reflux disease with esophagitis without hemorrhage 11/12/2020 Encounter for long-term (current) use of medications Encounter for long-term (current) use of other medications 11/12/2020 SOB (shortness of breath) Shortness of breath 11/12/2020 Dysuria 11/12/2020 Hyperlipidemia LDL goal <100 Other and unspecified hyperlipidemia 11/12/2020 Ventral hernia without obstruction or gangrene Ventral hernia, unspecified, without mention of obstruction or gangrene 11/12/2020 Type 2 diabetes mellitus with peripheral neuropathy (HCC) 11/24/2020 SOB (shortness of breath) Shortness of breath 12/07/2020 Heart failure (HCC) Heart failure, unspecified 12/09/2020 Type 2 diabetes mellitus with peripheral neuropathy (HCC) 12/14/2020 SOB (shortness of breath) Shortness of breath 12/22/2020 Diabetic polyneuropathy associated with type 2 diabetes mellitus (HCC) 12/25/2020 Chronic bilateral low back pain without sciatica 12/25/2020 Encounter for screening mammogram for malignant neoplasm of breast Other screening mammogram 01/01/2021 Incisional hernia, without obstruction or gangrene Incisional hernia without mention of obstruction or gangrene 01/02/2021 Incisional hernia, without obstruction or gangrene Incisional hernia without mention of obstruction or gangrene 01/07/2021 Acute non-recurrent sinusitis, unspecified location 02/03/2021 Diabetic polyneuropathy associated with type 2 diabetes mellitus (HCC) 02/19/2021 Chronic bilateral low back pain without sciatica 02/19/2021 Type 2 diabetes mellitus with peripheral neuropathy (HCC) 02/23/2021 Diabetic polyneuropathy associated with type 2 diabetes mellitus (HCC) 03/03/2021 Chronic bilateral low back pain without sciatica 03/03/2021 Type 2 diabetes mellitus with peripheral neuropathy (HCC) 03/03/2021 Chronic heart failure, unspecified heart failure type (HCC) 03/03/2021 Gastroesophageal reflux disease with esophagitis without hemorrhage 03/03/2021 Hyperlipidemia LDL goal <100 Other and unspecified hyperlipidemia 03/03/2021 Encounter for long-term (current) use of medications Encounter for long-term (current) use of other medications 03/03/2021 Dysuria 03/03/2021 Leg cramps Cramp of limb 03/03/2021 Medicare annual wellness visit, initial Routine general medical examination at a [facility] facility 03/03/2021 Urinary frequency 03/03/2021 Heart failure (HCC) Heart failure, unspecified 03/06/2021 Postinfectious hypothyroidism Unspecified hypothyroidism 03/10/2021 Arthritis of knee Unspecified arthropathy, lower leg 03/10/2021 Type 2 diabetes mellitus with peripheral neuropathy (HCC) 03/15/2021 Type 2 diabetes mellitus with peripheral neuropathy (HCC) 03/24/2021 TIA (transient ischemic attack) Unspecified transient cerebral ischemia 03/26/2021 Type 2 diabetes mellitus with peripheral neuropathy (HCC) 03/26/2021 Diabetic polyneuropathy associated with type 2 diabetes mellitus (HCC) 03/26/2021 Chronic bilateral low back pain without sciatica 03/26/2021 Type 2 diabetes mellitus with peripheral neuropathy (HCC) 03/30/2021 Medication management Encounter for other specified aftercare 03/30/2021 Type 2 diabetes mellitus with peripheral neuropathy (HCC) 03/30/2021 Hospital discharge follow-up Other follow-up examination 03/30/2021 History of TIA (transient ischemic attack) Transient ischemic attack (TIA), and cerebral infarction without residual deficits 03/30/2021 Diabetic polyneuropathy associated with type 2 diabetes mellitus (HCC) 03/30/2021 Chronic bilateral low back pain without sciatica 03/30/2021 Type 2 diabetes mellitus with peripheral neuropathy (HCC) 03/31/2021 Leg cramps Cramp of limb 04/01/2021 Hyperlipidemia LDL goal <100 Other and unspecified hyperlipidemia 04/15/2021 Type 2 diabetes mellitus with peripheral neuropathy (HCC) 04/22/2021 TIA (transient ischemic attack) Unspecified transient cerebral ischemia 04/30/2021 Dyslipidemia Other and unspecified hyperlipidemia 04/30/2021 Morbid obesity with BMI of 50.0-59.9, adult (HCC) 04/30/2021 Gastroesophageal reflux disease with esophagitis without hemorrhage 05/16/2021 Type 2 diabetes mellitus with peripheral neuropathy (HCC) 05/26/2021 Leg cramps Cramp of limb 05/26/2021 Heart failure (HCC) Heart failure, unspecified 06/09/2021 Diabetic polyneuropathy associated with type 2 diabetes mellitus (HCC) 06/17/2021 Chronic bilateral low back pain without sciatica 06/17/2021 Type 2 diabetes mellitus with peripheral neuropathy (HCC) 06/21/2021 Type 2 diabetes mellitus with peripheral neuropathy (HCC) 06/24/2021 Leg cramps Cramp of limb 06/24/2021 Type 2 diabetes mellitus with peripheral neuropathy (HCC) 06/24/2021 Type 2 diabetes mellitus with peripheral neuropathy (HCC) 06/24/2021 Noncompliance Personal history of noncompliance with medical treatment, presenting hazards to health 06/24/2021 Diabetic polyneuropathy associated with type 2 diabetes mellitus (HCC) 06/24/2021 Chronic bilateral low back pain without sciatica 06/24/2021 Leg cramps Cramp of limb 07/24/2021 Type 2 diabetes mellitus with peripheral neuropathy (HCC) 07/24/2021 Type 2 diabetes mellitus with peripheral neuropathy (HCC) 08/08/2021 Heart failure (HCC) Heart failure, unspecified 08/15/2021 Leg cramps Cramp of limb 08/20/2021 Type 2 diabetes mellitus with peripheral neuropathy (HCC) 08/20/2021 Vertigo Dizziness and giddiness 09/17/2021 Generalized weakness Other malaise and fatigue 09/17/2021 Cough 09/17/2021 Generalized body aches 09/17/2021 Upper respiratory tract infection, unspecified type 09/17/2021 COVID-19 09/21/2021 COVID-19 virus infection 09/21/2021 SOB (shortness of breath) Shortness of breath 09/21/2021 Heart failure (HCC) Heart failure, unspecified 09/21/2021 Postinfectious hypothyroidism Unspecified hypothyroidism 09/21/2021 COVID-19 09/21/2021 Viral syndrome Unspecified viral infection, in conditions classified elsewhere and of unspecified site 09/21/2021 Generalized weakness Other malaise and fatigue 09/21/2021 COVID-19 09/22/2021 Acute respiratory failure with hypoxemia (HCC) 09/24/2021 Pneumonia due to COVID-19 virus 09/24/2021 Type 2 diabetes mellitus with peripheral neuropathy (HCC) 09/24/2021 Morbid obesity with BMI of 50.0-59.9, adult (HCC) 09/24/2021 Type 2 diabetes mellitus with peripheral neuropathy (HCC) 10/01/2021 Atherosclerosis of aorta 10/05/2021 Hospital discharge follow-up Other follow-up examination 10/05/2021 COVID-19 virus infection 10/05/2021 Diabetic polyneuropathy associated with type 2 diabetes mellitus (HCC) 10/13/2021 Chronic bilateral low back pain without sciatica 10/13/2021 Heart failure (HCC) Heart failure, unspecified 10/18/2021 Type 2 diabetes mellitus with peripheral neuropathy (HCC) 10/24/2021 Type 2 diabetes mellitus with peripheral neuropathy (HCC) 10/26/2021 Type 2 diabetes mellitus with peripheral neuropathy (HCC) 11/04/2021 Type 2 diabetes mellitus with peripheral neuropathy (HCC) 11/09/2021 Type 2 diabetes mellitus with peripheral neuropathy (HCC) 11/09/2021 Atherosclerosis of aorta 11/09/2021 Body mass index (BMI) 45.0-49.9, adult (HCC) 11/09/2021 Gastroesophageal reflux disease with esophagitis without hemorrhage 11/28/2021 Syncope, unspecified syncope type 12/18/2021 Bronchitis Bronchitis, not specified as acute or chronic 12/18/2021 Type 2 diabetes mellitus with peripheral neuropathy (HCC) 12/22/2021 Type 2 diabetes mellitus with neurological manifestations, uncontrolled 12/22/2021 Type 2 diabetes mellitus with peripheral neuropathy (HCC) 12/25/2021 Enrolled in chronic care management 01/04/2022 Type 2 diabetes mellitus with peripheral neuropathy (HCC) 01/04/2022 Leg cramps Cramp of limb 01/04/2022 Hyperlipidemia LDL goal <100 Other and unspecified hyperlipidemia 01/09/2022 SOB (shortness of breath) Shortness of breath 01/10/2022 SOB (shortness of breath) Shortness of breath 01/11/2022 Heart failure (HCC) Heart failure, unspecified 01/18/2022 SOB (shortness of breath) Shortness of breath 01/25/2022 Diabetic polyneuropathy associated with type 2 diabetes mellitus (HCC) 01/28/2022 Chronic bilateral low back pain without sciatica 01/28/2022 Diabetic polyneuropathy associated with type 2 diabetes mellitus (HCC) 01/28/2022 Chronic bilateral low back pain without sciatica 01/28/2022 Leg cramps Cramp of limb 01/31/2022 SOB (shortness of breath) Shortness of breath 02/10/2022 Type 2 diabetes mellitus with peripheral neuropathy (HCC) 02/15/2022 Leg cramps Cramp of limb 02/16/2022 Gastroesophageal reflux disease with esophagitis without hemorrhage 02/23/2022 Postinfectious hypothyroidism Unspecified hypothyroidism 03/17/2022 Postinfectious hypothyroidism Unspecified hypothyroidism 03/30/2022 Gastroesophageal reflux disease with esophagitis without hemorrhage 03/30/2022 Hyperlipidemia LDL goal <100 Other and unspecified hyperlipidemia 04/09/2022 Heart failure (HCC) Heart failure, unspecified 04/14/2022 Leg cramps Cramp of limb 04/14/2022 Heart failure (HCC) Heart failure, unspecified 04/15/2022 Hyperlipidemia LDL goal <100 Other and unspecified hyperlipidemia 04/16/2022 SOB (shortness of breath) Shortness of breath 05/11/2022 Leg cramps Cramp of limb 05/16/2022 Diabetic polyneuropathy associated with type 2 diabetes mellitus (HCC) 05/28/2022 Chronic bilateral low back pain without sciatica 05/28/2022 SOB (shortness of breath) Shortness of breath 05/31/2022 Encounter for counseling for care management of patient with chronic conditions and complex health needs using nurse-based model 06/01/2022 Leg cramps Cramp of limb 06/14/2022 Hyperlipidemia LDL goal <100 Other and unspecified hyperlipidemia 06/15/2022 Diabetic polyneuropathy associated with type 2 diabetes mellitus (HCC) 06/15/2022 Chronic bilateral low back pain without sciatica 06/15/2022 Gastroesophageal reflux disease with esophagitis without hemorrhage 06/15/2022 Gastroesophageal reflux disease with esophagitis without hemorrhage 06/20/2022 Type 2 diabetes mellitus with peripheral neuropathy (HCC) 06/23/2022 Encounter for counseling for care management of patient with chronic conditions and complex health needs using nurse-based model 06/28/2022 Type 2 diabetes mellitus with peripheral neuropathy (HCC) 06/28/2022 Hypothyroidism, unspecified type 06/28/2022 Hyperlipidemia LDL goal <100 Other and unspecified hyperlipidemia 06/28/2022 Annual physical exam Routine general medical examination at a health care facility 06/28/2022 Post-menopausal Asymptomatic postmenopausal status (age-related) (natural) 06/28/2022 Diabetic polyneuropathy associated with type 2 diabetes mellitus (HCC) 06/28/2022 Chronic bilateral low back pain without sciatica 06/28/2022 Type 2 diabetes mellitus with peripheral neuropathy (HCC) 06/28/2022 Hypothyroidism, unspecified type 06/28/2022 Hyperlipidemia LDL goal <100 Other and unspecified hyperlipidemia 06/28/2022 Annual physical exam Routine general medical examination at a health care facility 06/28/2022 Encounter for colorectal cancer screening Special screening for malignant neoplasms, colon 06/28/2022 Post-menopausal Asymptomatic postmenopausal status (age-related) (natural) 06/28/2022 Hypothyroidism, unspecified type 06/30/2022 Leg cramps Cramp of limb 07/12/2022 Hyperlipidemia LDL goal <100 Other and unspecified hyperlipidemia 07/19/2022 Gastroesophageal reflux disease with esophagitis without hemorrhage 07/19/2022 Type 2 diabetes mellitus with peripheral neuropathy (HCC) 07/19/2022 Screening for colon cancer Special screening for malignant neoplasms, colon 07/29/2022 Leg cramps Cramp of limb 08/17/2022 Heart failure (HCC) Heart failure, unspecified 08/23/2022 Diabetic polyneuropathy associated with type 2 diabetes mellitus (HCC) 09/11/2022 Chronic bilateral low back pain without sciatica 09/11/2022 COVID-19 09/22/2022 Leg cramps Cramp of limb 09/23/2022 Leg cramps Cramp of limb 09/24/2022 Gastroesophageal reflux disease with esophagitis without hemorrhage 10/01/2022 Gastroesophageal reflux disease with esophagitis without hemorrhage 10/04/2022 Diabetic polyneuropathy associated with type 2 diabetes mellitus (HCC) 10/06/2022 Chronic bilateral low back pain without sciatica 10/06/2022 [id number] condition 10/06/2022 Type 2 diabetes mellitus without complication, unspecified whether long-term insulin use (HCC) 10/06/2022 Type 2 diabetes mellitus with peripheral neuropathy (HCC) 10/16/2022 Type 2 diabetes mellitus with peripheral neuropathy (HCC) 10/18/2022 Screening for colon cancer Special screening for malignant neoplasms, colon 10/21/2022 Screening for colon cancer Special screening for malignant neoplasms, colon 10/21/2022 Gastroesophageal reflux disease with esophagitis without hemorrhage 11/02/2022 Gastroesophageal reflux disease with esophagitis without hemorrhage 11/03/2022 Type 2 diabetes mellitus with peripheral neuropathy (HCC) 11/05/2022 Type 2 diabetes mellitus with peripheral neuropathy (HCC) 11/05/2022 Leg cramps Cramp of limb 11/05/2022 Heart failure (HCC) Heart failure, unspecified 11/16/2022 Diabetic polyneuropathy associated with type 2 diabetes mellitus (HCC) 11/16/2022 Chronic bilateral low back pain without sciatica 11/16/2022 Diabetic polyneuropathy associated with type 2 diabetes mellitus (HCC) 11/16/2022 Chronic bilateral low back pain without sciatica 11/16/2022 Heart failure (HCC) Heart failure, unspecified 11/17/2022 Heart failure (HCC) Heart failure, unspecified 11/22/2022 Gastroesophageal reflux disease with esophagitis without hemorrhage 12/01/2022 Gastroesophageal reflux disease with esophagitis without hemorrhage 12/02/2022 Hypothyroidism, unspecified type 12/22/2022 Atherosclerosis of aorta 12/22/2022 Chronic heart failure, unspecified heart failure type (HCC) 12/22/2022 Type 2 diabetes mellitus with peripheral neuropathy (HCC) 12/22/2022 Diabetic polyneuropathy associated with type 2 diabetes mellitus (HCC) 12/22/2022 Chronic bilateral low back pain without sciatica 12/22/2022 Type 2 diabetes mellitus with peripheral neuropathy (HCC) 12/22/2022 Chronic heart failure, unspecified heart failure type (HCC) 12/22/2022 Atherosclerosis of aorta 12/22/2022 Body mass index (BMI) 50.0-59.9, adult (HCC) 12/22/2022 Hypothyroidism, unspecified type 12/22/2022 High risk medications (not anticoagulants) long-term use Encounter for long-term (current) use of other medications 12/22/2022 Encounter for screening mammogram for breast cancer 12/22/2022 Type 2 diabetes mellitus with peripheral neuropathy (HCC) 12/27/2022 Hypothyroidism, unspecified type 12/27/2022 Hyperlipidemia LDL goal <100 Other and unspecified hyperlipidemia 12/29/2022 Leg cramps Cramp of limb 01/07/2023 Type 2 diabetes mellitus with peripheral neuropathy (HCC) 01/16/2023 Type 2 diabetes mellitus with peripheral neuropathy (HCC) 01/17/2023 Type 2 diabetes mellitus with peripheral neuropathy (HCC) 02/05/2023 Type 2 diabetes mellitus with peripheral neuropathy (HCC) 02/07/2023 Leg cramps Cramp of limb 02/13/2023 Diabetic polyneuropathy associated with type 2 diabetes mellitus (HCC) 02/19/2023 Chronic bilateral low back pain without sciatica 02/19/2023 Gastroesophageal reflux disease with esophagitis without hemorrhage 03/08/2023 Gastroesophageal reflux disease with esophagitis without hemorrhage 03/08/2023 Type 2 diabetes mellitus with peripheral neuropathy (HCC) 03/08/2023 Gastroesophageal reflux disease with esophagitis without hemorrhage 03/20/2023 Leg cramps Cramp of limb 03/20/2023 Hypothyroidism, unspecified type 03/20/2023 UTI (urinary tract infection), uncomplicated Urinary tract infection, site not specified 03/25/2023 Vagina itching Pruritus of genital organs 03/25/2023 Pelvic pressure in female Other specified symptom associated with female genital organs 03/25/2023 Diabetic polyneuropathy associated with type 2 diabetes mellitus (HCC) 04/08/2023 Chronic bilateral low back pain without sciatica 04/08/2023 Gastroesophageal reflux disease with esophagitis without hemorrhage 04/08/2023 Gastroesophageal reflux disease with esophagitis without hemorrhage 04/11/2023 Type 2 diabetes mellitus with peripheral neuropathy (HCC) 04/17/2023 Leg cramps Cramp of limb 04/20/2023 Type 2 diabetes mellitus with peripheral neuropathy (HCC) 05/09/2023 Gastroesophageal reflux disease with esophagitis without hemorrhage 05/11/2023 Gastroesophageal reflux disease with esophagitis without hemorrhage 05/12/2023 Diabetic polyneuropathy associated with type 2 diabetes mellitus (HCC) 05/17/2023 Chronic bilateral low back pain without sciatica 05/17/2023 Leg cramps Cramp of limb 05/25/2023 Gastroesophageal reflux disease with esophagitis without hemorrhage 06/14/2023 Hyperlipidemia LDL goal <100 Other and unspecified hyperlipidemia 06/19/2023 Vaginal irritation Unspecified noninflammatory disorder of vagina 06/21/2023 Type 2 diabetes mellitus with peripheral neuropathy (HCC) 06/21/2023 Vaginal irritation Unspecified noninflammatory disorder of vagina 06/21/2023 Vaginal yeast infection Candidiasis of vulva and vagina 06/21/2023 Type 2 diabetes mellitus with peripheral neuropathy (HCC) 06/21/2023 Type 2 diabetes mellitus with peripheral neuropathy (HCC) 06/23/2023 Yeast infection Other and unspecified mycoses 06/23/2023 Chronic heart failure, unspecified heart failure type (HCC) 06/24/2023 Yeast infection Other and unspecified mycoses 06/24/2023 Encounter for screening mammogram for breast cancer 06/24/2023 Type 2 diabetes mellitus with peripheral neuropathy (HCC) 06/24/2023 Noncompliance Personal history of noncompliance with medical treatment, presenting hazards to health 06/24/2023 Type 2 diabetes mellitus with peripheral neuropathy (HCC) 07/02/2023 Type 2 diabetes mellitus with peripheral neuropathy (HCC) 07/06/2023 Lumbar back pain Lumbago 07/13/2023 Herpes zoster without complication 07/27/2023 Vaginal yeast infection Candidiasis of vulva and vagina 09/02/2023 Morbid obesity with BMI of 50.0-59.9, adult (HCC) 09/02/2023 Type 2 diabetes mellitus with peripheral neuropathy (HCC) 09/02/2023 Type 2 diabetes mellitus with peripheral neuropathy (HCC) 09/02/2023 Gastroesophageal reflux disease with esophagitis without hemorrhage 09/12/2023 Gastroesophageal reflux disease with esophagitis without hemorrhage 09/13/2023 Hyperlipidemia LDL goal <100 Other and unspecified hyperlipidemia 09/16/2023 Diabetic polyneuropathy associated with type 2 diabetes mellitus (HCC) 09/20/2023 Chronic bilateral low back pain without sciatica 09/20/2023 Person under investigation for COVID-19 09/23/2023 Upper respiratory tract infection, unspecified type 09/23/2023 Pleuritic chest pain Painful respiration 09/23/2023 Diabetic polyneuropathy associated with type 2 diabetes mellitus (HCC) 09/28/2023 Chronic bilateral low back pain without sciatica 09/28/2023 Type 2 diabetes mellitus with peripheral neuropathy (HCC) 10/03/2023 Type 2 diabetes mellitus with peripheral neuropathy (HCC) 10/03/2023 Diabetic polyneuropathy associated with type 2 diabetes mellitus (HCC) 10/04/2023 Chronic bilateral low back pain without sciatica 10/04/2023 Gastroesophageal reflux disease with esophagitis without hemorrhage 10/20/2023 Gastroesophageal reflux disease with esophagitis without hemorrhage 10/20/2023 Type 2 diabetes mellitus with peripheral neuropathy (HCC) 11/04/2023 Type 2 diabetes mellitus with peripheral neuropathy (HCC) 11/10/2023 Hyperglycemia Other abnormal glucose 11/23/2023 Influenza A Influenza with other respiratory manifestations 11/23/2023 Lightheadedness Dizziness and giddiness 11/23/2023 Encounter for counseling for care management of patient with chronic conditions and complex health needs using nurse-based model 12/05/2023 Type 2 diabetes mellitus with peripheral neuropathy (HCC) 12/05/2023 Type 2 diabetes mellitus with peripheral neuropathy (HCC) 12/05/2023 Hypothyroidism, unspecified type 12/19/2023 Chronic heart failure, unspecified heart failure type (HCC) 12/19/2023 Diabetic polyneuropathy associated with type 2 diabetes mellitus (HCC) 12/22/2023 Chronic bilateral low back pain without sciatica 12/22/2023 Type 2 diabetes mellitus with peripheral neuropathy (HCC) 12/22/2023 Type 2 diabetes mellitus with peripheral neuropathy (HCC) 01/17/2024 Type 2 diabetes mellitus with hyperglycemia, with long-term current use of insulin (HCC) 02/02/2024 Hyperlipidemia associated with type 2 diabetes mellitus (HCC) 02/02/2024 Hypertension associated with type 2 diabetes mellitus (HCC) 02/02/2024 Acquired hypothyroidism Unspecified hypothyroidism 02/02/2024 Gastroesophageal reflux disease with esophagitis without hemorrhage 02/09/2024 Leg cramps Cramp of limb 02/13/2024 Type 2 diabetes mellitus with peripheral neuropathy (HCC) 02/13/2024 Gastroesophageal reflux disease with esophagitis without hemorrhage 02/18/2024 Type 2 diabetes mellitus with hyperglycemia, with long-term current use of insulin (HCC) 02/18/2024 Hyperlipidemia associated with type 2 diabetes mellitus (HCC) 02/18/2024 Type 2 diabetes mellitus with peripheral neuropathy (HCC) 02/24/2024 Hypothyroidism, unspecified type 02/28/2024 Leg cramps Cramp of limb 03/14/2024 Leg cramps Cramp of limb 03/22/2024 Type 2 diabetes mellitus with hyperglycemia, with long-term current use of insulin (HCC) 04/09/2024 Gastroesophageal reflux disease with esophagitis without hemorrhage 04/19/2024 Leg cramps Cramp of limb 04/19/2024 Gastroesophageal reflux disease with esophagitis without hemorrhage 04/30/2024 Type 2 diabetes mellitus with hyperglycemia, with long-term current use of insulin (HCC) 05/07/2024 Type 2 diabetes mellitus with peripheral neuropathy (HCC) 05/07/2024 Hyperlipidemia associated with type 2 diabetes mellitus (HCC) 05/07/2024 Hypertension associated with type 2 diabetes mellitus (HCC) 05/07/2024 Vaginal yeast infection Candidiasis of vulva and vagina 05/07/2024 Leg cramps Cramp of limb 05/09/2024 Hyperglycemia Other abnormal glucose 05/16/2024 Type 2 diabetes mellitus with peripheral neuropathy (HCC) 05/18/2024 Hypothyroidism, unspecified type 05/26/2024 Hypothyroidism, unspecified type 05/28/2024 Leg cramps Cramp of limb 05/31/2024 Gastroesophageal reflux disease with esophagitis without hemorrhage 06/03/2024 Leg cramps Cramp of limb 06/18/2024 Diabetic polyneuropathy associated with type 2 diabetes mellitus (HCC) 06/18/2024 Chronic bilateral low back pain without sciatica 06/18/2024 Periumbilical abdominal pain Abdominal pain, periumbilic 06/28/2024 Type 2 diabetes mellitus with peripheral neuropathy (HCC) 06/28/2024 Diabetic polyneuropathy associated with type 2 diabetes mellitus (HCC) 06/28/2024 Chronic bilateral low back pain without sciatica 06/28/2024 Hypothyroidism, unspecified type 07/06/2024 Encounter for screening mammogram for breast cancer 07/11/2024 Hypothyroidism, unspecified type 07/11/2024 Leg cramps Cramp of limb 07/11/2024 Diabetic polyneuropathy associated with type 2 diabetes mellitus (HCC) 07/11/2024 Chronic bilateral low back pain without sciatica 07/11/2024 Gastroesophageal reflux disease with esophagitis without hemorrhage 07/11/2024 Type 2 diabetes mellitus with peripheral neuropathy (HCC) 07/11/2024 Chronic heart failure, unspecified heart failure type ([facility]) 07/11/2024 Atherosclerosis of aorta 07/11/2024 Vaginal prolapse Unspecified prolapse of vaginal martinez 07/11/2024 Urge incontinence of urine Urge incontinence 07/11/2024 Cervical cancer screening Screening for malignant neoplasm of the cervix 07/11/2024 Medicare annual wellness visit, subsequent Routine general medical examination at a health care facility 07/11/2024 Type 2 diabetes mellitus with hyperglycemia, with long-term current use of insulin ([facility]) 07/12/2024 Hyperlipidemia associated with type 2 diabetes mellitus ([facility]) 07/12/2024 Hypertension associated with type 2 diabetes mellitus ([facility]) 07/12/2024 Acquired hypothyroidism Unspecified hypothyroidism 07/12/2024 Encounter for screening mammogram for breast cancer 07/12/2024 Mixed incontinence Mixed incontinence urge and stress (male)(female) 07/17/2024 Cystocele, midline 07/17/2024 Frequency of urination Urinary frequency 07/17/2024 Morbid obesity with BMI of 50.0-59.9, adult ([facility]) 07/17/2024 Chronic heart failure, unspecified heart failure type ([facility]) 07/17/2024 Type 2 diabetes mellitus with peripheral neuropathy ([facility]) 07/17/2024 Ventral hernia, recurrent Incisional hernia without mention of obstruction or gangrene 07/17/2024 Expressive aphasia Aphasia 07/17/2024 Dysarthria 07/17/2024 Hyperlipidemia LDL goal <100 Other and unspecified hyperlipidemia 07/17/2024 Acquired hypothyroidism Unspecified hypothyroidism 07/17/2024 TIA (transient ischemic attack) Unspecified transient cerebral ischemia 07/17/2024 Urinary frequency 07/17/2024 Yeast dermatitis 07/17/2024 OAB (overactive bladder) Hypertonicity of bladder 08/13/2024 Female genital prolapse, unspecified type 08/13/2024 EDITH (stress urinary incontinence, female) Female stress incontinence 08/13/2024 Urinary frequency 08/13/2024 Yeast dermatitis 08/13/2024 Type 2 diabetes mellitus with peripheral neuropathy ([facility]) 08/21/2024 Type 2 diabetes mellitus with hyperglycemia, with long-term current use of insulin ([facility]) 08/22/2024 Hyperlipidemia associated with type 2 diabetes mellitus ([facility]) 08/22/2024 Hypertension associated with type 2 diabetes mellitus (HCC) 08/22/2024 Acquired hypothyroidism Unspecified hypothyroidism 08/22/2024 Type 2 diabetes mellitus with hyperglycemia, with long-term current use of insulin (HCC) 08/23/2024 Chronic heart failure, unspecified heart failure type (HCC) 09/04/2024 Gastroesophageal reflux disease with esophagitis without hemorrhage 09/05/2024 Chest pain, unspecified type 09/07/2024 Abdominal pain, unspecified abdominal location 09/07/2024 Calculus of gallbladder and bile duct without cholecystitis or obstruction Calculus of gallbladder and bile duct without cholecystitis, without mention of obstruction 09/07/2024 Elevated liver enzymes Nonspecific elevation of levels of transaminase or lactic acid dehydrogenase (LDH) 09/07/2024 Diabetic polyneuropathy associated with type 2 diabetes mellitus (HCC) 09/18/2024 Chronic bilateral low back pain without sciatica 09/18/2024 Type 2 diabetes mellitus with peripheral neuropathy (HCC) 09/18/2024 Stress incontinence Female stress incontinence 09/20/2024 Rectocele 09/20/2024 Female genital prolapse, unspecified type 09/27/2024 Rectocele 09/27/2024 Cystocele, midline 09/27/2024 EDITH (stress urinary incontinence, female) Female stress incontinence 09/27/2024 Biliary calculus of other site without obstruction 10/15/2024 Hyperglycemia Other abnormal glucose 10/15/2024 Hyperlipidemia LDL goal <100 Other and unspecified hyperlipidemia 10/20/2024 Hyperlipidemia LDL goal <100 Other and unspecified hyperlipidemia 10/22/2024 Calculus of gallbladder with chronic cholecystitis without obstruction Calculus of gallbladder with other cholecystitis, without mention of obstruction 10/25/2024 History of ventral hernia repair Personal history of surgery to other organs 10/25/2024 Calculus of gallbladder with chronic cholecystitis without obstruction Calculus of gallbladder with other cholecystitis, without mention of obstruction 11/01/2024 OAB (overactive bladder) Hypertonicity of bladder 11/23/2024 Hyperlipidemia LDL goal <100 Other and unspecified hyperlipidemia 12/03/2024 Type 2 diabetes mellitus with peripheral neuropathy (HCC) 12/03/2024 Pre-op examination Preoperative examination, unspecified 12/04/2024 Type 2 diabetes mellitus with peripheral neuropathy (HCC) 12/04/2024 Pre-op examination Preoperative examination, unspecified 12/04/2024 Calculus of gallbladder without cholecystitis without obstruction Calculus of gallbladder without mention of cholecystitis or obstruction 12/04/2024 Chronic heart failure, unspecified heart failure type (HCC) 12/04/2024 Type 2 diabetes mellitus with peripheral neuropathy (HCC) 12/04/2024 Obesity, Class III, BMI 40-49.9 (morbid obesity) Morbid obesity 12/04/2024 Calculus of gallbladder with chronic cholecystitis without obstruction Calculus of gallbladder with other cholecystitis, without mention of obstruction 12/06/2024 Calculus of gallbladder with chronic cholecystitis without obstruction Calculus of gallbladder with other cholecystitis, without mention of obstruction 12/06/2024 Female genital prolapse, unspecified type 12/26/2024 Rectocele 12/26/2024 Cystocele, midline 12/26/2024 EDITH (stress urinary incontinence, female) Female stress incontinence 12/26/2024 Type 2 diabetes mellitus with hyperglycemia, with long-term current use of insulin ([facility]) 12/26/2024 Hyperlipidemia associated with type 2 diabetes mellitus (HCC) 12/26/2024 Hypertension associated with type 2 diabetes mellitus (HCC) 12/26/2024 Acquired hypothyroidism Unspecified hypothyroidism 12/26/2024 Pre-op examination Preoperative examination, unspecified 01/01/2025 Rectocele 01/01/2025 Female genital prolapse, unspecified type 01/02/2025 Rectocele 01/02/2025 Cystocele, midline 01/02/2025 EDITH (stress urinary incontinence, female) Female stress incontinence 01/02/2025 Female genital prolapse, unspecified type 01/02/2025 Rectocele 01/02/2025 Cystocele, midline 01/02/2025 EDITH (stress urinary incontinence, female) Female stress incontinence 01/02/2025 Diabetic polyneuropathy associated with type 2 diabetes mellitus (HCC) 01/22/2025 Chronic bilateral low back pain without sciatica 01/22/2025 Diabetic polyneuropathy associated with type 2 diabetes mellitus (HCC) 03/05/2025 Chronic bilateral low back pain without sciatica 03/05/2025 Hypothyroidism, unspecified type 03/05/2025 Type 2 diabetes mellitus with peripheral neuropathy (HCC) 03/05/2025 Encounter for long-term (current) use of high-risk medication Encounter for long-term (current) use of other medications 03/05/2025 Type 2 diabetes mellitus without complication, unspecified whether long-term insulin use (HCC) 03/05/2025 Postural dizziness with presyncope 03/07/2025 OAB (overactive bladder) Hypertonicity of bladder 04/02/2025 Type 2 diabetes mellitus with hyperglycemia, with long-term current use of insulin ([facility]) 04/08/2025 Hyperlipidemia associated with type 2 diabetes mellitus (HCC) 04/08/2025 Hypotension, unspecified hypotension type 04/10/2025 Diabetic polyneuropathy associated with type 2 diabetes mellitus (HCC) 06/04/2025 Chronic bilateral low back pain without sciatica 06/04/2025 Type 2 diabetes mellitus with peripheral neuropathy ([facility]) 06/04/2025 SOB (shortness of breath) Shortness of breath 06/04/2025 Hyperlipidemia LDL goal <100 Other and unspecified hyperlipidemia 06/04/2025 Chronic heart failure, unspecified heart failure type ([facility]) 06/04/2025 Type 2 diabetes mellitus with hyperglycemia, with long-term current use of insulin ([facility]) 06/04/2025 Hyperlipidemia associated with type 2 diabetes mellitus (HCC) 06/04/2025 Hypothyroidism, unspecified type 06/04/2025 Gastroesophageal reflux disease with esophagitis without hemorrhage 06/04/2025 Leg cramps Cramp of limb 06/04/2025 Athlete's foot on left Dermatophytosis of foot 06/04/2025 TIA (transient ischemic attack) Unspecified transient cerebral ischemia 03/26/2021 Morbid obesity with BMI of 50.0-59.9, adult ([facility]) 03/26/2021 Type 2 diabetes mellitus with peripheral neuropathy ([facility]) 03/26/2021 Hyperlipidemia LDL goal <100 Other and unspecified hyperlipidemia 03/26/2021 Hypothyroidism Unspecified hypothyroidism 03/26/2021 Left sided numbness Disturbance of skin sensation 03/26/2021 Left arm weakness Other musculoskeletal symptoms referable to limbs 03/26/2021 Expressive aphasia Aphasia 03/26/2021 Dysarthria 03/26/2021 Acute respiratory failure with hypoxemia (HCC) 09/24/2021 Acute respiratory failure with hypoxemia ([facility]) 09/24/2021 COVID-19 09/24/2021 Hyperlipidemia LDL goal <100 Other and unspecified hyperlipidemia 09/24/2021 Morbid obesity with BMI of 50.0-59.9, adult ([facility]) 09/24/2021 Type 2 diabetes mellitus with peripheral neuropathy ([facility]) 09/24/2021 Hypothyroidism Unspecified hypothyroidism 09/24/2021 E. coli UTI Urinary tract infection, site not specified 09/24/2021 Bradycardia Other specified cardiac dysrhythmias 09/24/2021 Chest pain, unspecified type 09/07/2024 Abdominal pain Abdominal pain, unspecified site 09/07/2024 Nausea & vomiting Nausea with vomiting 09/07/2024 Hypothyroidism Unspecified hypothyroidism 09/07/2024 Obesity, Class III, BMI 40-49.9 (morbid obesity) Morbid obesity 09/07/2024 Type 2 diabetes mellitus with peripheral neuropathy ([facility]) 09/07/2024 Heart failure ([facility]) Heart failure, unspecified 09/07/2024 Chronic pain of both knees 09/07/2024 Female genital prolapse Unspecified genital prolapse 01/02/2025 Rectocele 01/02/2025 EDITH (stress urinary incontinence, female) Female stress incontinence 01/02/2025 Goals Goal Patient Goal Type Associated Problems Recent Progress Patient-Stated? Author Blood Pressure < 140/90 Blood Pressure 150/90(2024 11:07 AM EDT) No Kinney, Lyunda, RMA BMI (Calculated) < 30 General 46.7(06/04/20 11:07 AM EDT) No Giovanni, Lyunda, RMA Maintain a healthy diet, exercise regularly and maintain an ideal body weight General No Radha Soto RMA HEMOGLOBIN A1C < 7.0 Result Component 7.4( 11:23 AM EDT) No Giovanni, Lyunda, RMA Care Teams Tile Layer Relationship Specialty Start Date End Date Malinda Patterson MD [address] [place] [address] PCP - General Family Medicine 08/27/14
--- OUTSIDE RECORDS SUMMARY | 2025-06-16 02:15 | XMS_ITS | Encounter Summary ---
Author [place] [address] Care Team Providers Care Rock Worker Name Role Phone Malinda Patterson MD Primary Care Provider Reason for Visit * Reason Onset Date Comments Prior Authorization 06/07/2025 Encounter Details Date Type Department Care Team (Late st Contact Info) Description 06/07/2025 Telephone [facility]P [facility] [address] [place] [address] Malinda Patterson MD [address] [place] [address] Prior Authorization Social History Tobacco Use Types Packs/Day Years Used Date Smoking Tobacco: Never Smokeless Tobacco: Never Alcohol Use Standard Drinks/Week Comments Yes 0 (1 standard drink = 0.6 oz pur e alcohol) rarely [facility] Utilities Answer Date Recorded In the past 12 months has [employer] electric, gas, oil, or water [employer] threatened to shut off services in your home? No 09/10/2024 Overall Financial Resource Strain (CARDIA) Answe r Date Recorded How hard is it for you to pa y for the very basics like food, housing, medical care, and heating? Not hard at all 09/10/2024 PHQ-2 Answer Date Recorded PHQ-2 Total Score 0 09/10/2024 [facility] [place] of Occupat ional Health - Occupational Stress [...] things needed for daily living? No 12/05/2023 [facility] IP Transportation Answer D ate Recorded In [...] Assessment Author No 12/04/2024 11:31 AM Bishop Regan, GENEVAA * Does this person have difficulty dressing or bathing? Answer Date of Assessment Author No 12/04/2024 11:31 AM Bishop ReganBRITTANY * Because of a physical, mental or [...] Author No 12/04/2024 11:31 AM Bishop Regan MaricruzBRITTANY documented in this encounter Miscellaneous Notes * Telephone Encounter - Surekha Myles MA - 06/07/2025 3:50 PM EDT Denied, scanned into chart. * Telephone Encounter - Talia Palacios MA - 06/07/2025 11:59 AM EDT Prior authorization started for CMM via omeg 3 PIERRE: [id number] documented in this encounter Plan of Treatment Upcoming Encounters Date Type Department Care Team (Late st Contact Info) Description 09/30/2025 10:30 AM EST Office Visit [facility] [address] [place] [phone] Malinda Patterson MD [address] [facility] [address] documented as of this encounter Goals Goal Patient Goal Type Associated Problems Recent Progress Patient-Stated? Author Blood Pressure < 140/90 Blood Pressure 150/90(2024 11:07 AM EDT) No [place], Lyunda, RMA BMI (Calculated) < 30 General 46.7(06/04/20 11:07 AM EDT) No Ezekiel Davila, RMA Maintain a healthy diet, exercise regularly and maintain an ideal body weight General No Radha Soto RMA HEMOGLOBIN A1C < 7.0 Result Component 7.4( 5 11:23 AM EDT) No Ezekiel Davila RMA documented as of this encounter Visit Diagnoses Not on filedocumented in this encounter Care Teams Rock Worker Relationship Specialty Start Date End Date Malinda Patterson MD [address] [place], [place] [id number] PCP - General Family Medicine 08/27/14 documented as of this encounter
--- OUTSIDE RECORDS SUMMARY | 2025-06-16 02:15 | XMS_ITS | Encounter Summary ---
Author Organization [place] [address] Care Team Providers Care Glue Clamp Operator Name Role Phone Malinda Patterson MD Primary Care Provider Reason for Visit * Reason Onset Date Comments 911/Red Flag 04/10/2025 Low BP Encounter Details Date Type Department Care Team (Late st Contact Info) Description 04/10/2025 Telephone [facility] [address] [place] [address] Malinda Patterson MD [address] [place] [address] 911/Red Flag (Low BP) Social History Tobacco Use Types Packs/Day Years Used Date Smoking Tobacco: Never Smokeless Tobacco: Never Alcohol Use Standard Drinks/Week Comments Yes 0 (1 standard drink = 0.6 oz pur e alcohol) rarely [facility] Utilities Answer Date Recorded In the past 12 months has th [employer] electric, gas, oil, or water company threatened to shut off services in your home? No 09/10/2024 Overall Financial Resource Strain (CARDIA) Answe r Date Recorded How hard is it for you to pa y for the very basics like food, housing, medical care, and heating? Not hard at all 09/10/2024 PHQ-2 Answer Date Recorded PHQ-2 Total Score 0 09/10/2024 [facility] [place] of Occupat ional Health - Occupational Stress [...] things needed for daily living? No 12/05/2023 [facility] IP Transportation Answer D ate Recorded [...] Author No 12/04/2024 11:31 AM Bishop Regan R, RMA * Because of a physical, mental or emotional condition, does this person have difficulty doing errands alone such as visiting a doctor's office or shopping? Answer Date of Assessment Author No 12/04/2024 11:31 AM Bishop Regan R, RMA * Suicide Severity Rating Answer Date of Assessment Author No Risk 04/10/2025 10:58 AM EDT King Perkins RN * [place] Suicide Severity Rating Scale (Q shift for moderate and high) Question Answer Date of Assessment Author 1. In the past month, have y ou wished you were or wished you could go to sleep and not wake up? 0 04/10/2025 10:58 AM EDT King Cortez RN 2. In the past month, [...] Date Author No 12/04/2024 11:31 AM Bishop Regan, RMA documented in this encounter Miscellaneous Notes * Telephone Encounter - Asuncion Almaraz DO - 04/10/2025 12:21 PM EDT Nelsy malik * Telephone Encounter - Leaenn David MA - 04/10/2025 10:43 AM EDT jay * Telephone Encounter - Sarai Sahu - 04/10/2025 9:58 AM EDT Select the most appropriate reason for this telephone message: 911 Emergency Who is calling (be specific): Patient Symptoms/Situation: Low BP 67/44 Were emergency services dispatched: No If No, was the patient advised to call 911 or proceed to the nearest emergency department if they are experiencing a life threatening condition: Yes Return Method of Communication: Phone Call Was patient transferred to Nurse Triage for additional help? N/A Additional Information: Pt states she is on the way to ED now. documented in this encounter Plan of Treatment Upcoming Encounters Date Type Department Care Team (Late st Contact Info) Description 09/30/2025 10:30 AM EST Office Visit [facility] [address] [place] [phone] Malinda Patterson MD [address] [place] [address] documented as of this encounter Goals Goal [...] Lyunda, RMA documented as of this encounter Visit Diagnoses Not on filedocumented in this encounter Care Teams Glue Clamp Operator Relationship Specialty Start Date End Date Malinda Patterson MD [address] [place] [address] PCP - General Family Medicine 08/27/14 documented as of this encounter
--- OUTSIDE RECORDS SUMMARY | 2025-06-16 02:15 | XMS_ITS | Encounter Summary ---
Author [place] [address] Care Team Providers Care Physician Vice President Name Role Phone Malinda Patterson MD Primary Care Provider Reason for Visit * Reason Onset Date Comments Central Patient Navigator Outreach 05/31/2025 Awv questionnaire Encounter Details Date Type Department Care Team (Late st Contact Info) Description 05/31/2025 Patient Outreach [facility] [address] [place] [address] Malinda Patterson MD [address] [place] [address] Central Patient Navigator Outreach (Awv questionnaire) Social History Tobacco Use Types Packs/Day Years Used Date Smoking Tobacco: Never Smokeless Tobacco: Never Alcohol Use Standard Drinks/Week Comments Yes 0 (1 standard drink = 0.6 oz pur e alcohol) rarely [facility] Utilities Answer Date Recorded In the past 12 months has [employer] electric, gas, oil, or water company threatened to shut off services in your home? No 09/10/2024 Overall Financial Resource Strain (CARDIA) Answe r Date Recorded How hard is it for you to pa y for the very basics like food, housing, medical care, and heating? Not hard at all 09/10/2024 PHQ-2 Answer Date Recorded PHQ-2 Total Score 0 09/10/2024 [facility] [place] of Occupat ional Health - Occupational Stress [...] things needed for daily living? No 12/05/2023 [facility] IP Transportation Answer D ate Recorded In [...] 12/04/2024 11:31 AM Bishop Regan R, RMA documented as of this encounter Mental Status * Because of a physical, mental or emotional condition, does this person have serious difficulty concentrating, remembering or making decisions? Answer Entry Date Author No 12/04/2024 11:31 AM Bishop Regan R, RMA documented in this encounter Progress Notes * Cinthia Ahuja - 05/31/2025 3:58 PM EDT Patient Outreach: Pre-Visit Questionnaires Attempt Count: 1st Care Gaps Addressed frontend engineer: Medicare Questionnaire Outcome:Left message to return call at and poLight Message Sent Call back number: [phone] documented in this encounter Plan of Treatment Upcoming Encounters Date Type Department Care Team (Late st Contact Info) Description 09/30/2025 10:30 AM EST Office Visit [facility] [address] [place] [phone] Malinda Patterson MD [address] [facility] [place] [address] documented as of this encounter Goals Goal Patient Goal Type Associated Problems Recent Progress Patient-Stated? Author Blood Pressure < 140/90 Blood Pressure 150/90(2024 11:07 AM EDT) No Gully, Lyunda, RMA BMI (Calculated) < 30 General 46.7(06/04/20 11:07 AM EDT) No Gully Lyunda, RMA Maintain a healthy diet, exercise regularly and maintain an ideal body weight General No Radha Soto RMA HEMOGLOBIN A1C < 7.0 Result Component 7.4( 11:23 AM EDT) No Ezekiel Davila, BRITTANY documented as of this encounter Visit Diagnoses Not on filedocumented in this encounter Care Teams Physician Vice President Relationship Specialty Start Date End Date Malinda Patterson MD [address] [place] [address] PCP - General Family Medicine 08/27/14 documented as of this encounter
--- OUTSIDE RECORDS SUMMARY | 2025-06-16 02:15 | XMS_ITS | Encounter Summary ---
Author Organization [place] [address] Care Team Providers Care Fabric Lay Out Worker Name Role Phone Malinda Patterson MD Primary Care Provider Reason for Visit * Reason Comments Medication Refill Encounter Details Date Type Department Care Team (Late st Contact Info) Description 04/02/2025 Refill [facility] [place] [address] [facility] [address] [place] [address] Marshall Ovalle MD [address] [place] [address] Medication Refill Social History Tobacco Use Types Packs/Day Years Used Date Smoking Tobacco: Never Smokeless Tobacco: Never Alcohol Use Standard Drinks/Week Comments Yes 0 (1 standard drink = 0.6 oz pur e alcohol) rarely [facility] Utilities Answer Date Recorded In the past 12 months has [employer] electric, gas, oil, or water [employer] threatened to shut off services in your home? No 09/10/2024 Overall Financial Resource Strain (CARDIA) Answe r Date Recorded How hard is it for you to pa y for the very basics like food, housing, medical care, and heating? Not hard at all 09/10/2024 PHQ-2 Answer Date Recorded PHQ-2 Total Score 0 09/10/2024 [facility] [place] of Occupat ional Health - Occupational Stress [...] things needed for daily living? No 12/05/2023 [facility] IP Transportation Answer D ate Recorded [...] Author No 12/04/2024 11:31 AM Bishop Regan, BRITTANY * Because of a physical, mental or emotional condition, does this person have difficulty doing errands alone such as visiting a doctor's office or shopping? Answer Date of Assessment Author No 12/04/2024 11:31 AM Bishop Regan RMA * Suicide Severity Rating Answer Date of Assessment Author No Risk 04/10/2025 10:58 AM EDT King Perkins RN * [place] Suicide Severity Rating Scale (Q shift for [...] Bishop Regan RMA documented in this encounter Miscellaneous Notes * Telephone Encounter - Earnestine Kelly - 04/04/2025 10:23 AM EDT Bad Phone number. Sent [employer] to schedule appt for refills * Telephone Encounter - Ludivina Romero CPhT - 04/04/2025 9:10 AM EDT Insulin Glargine YFGN - Refill request deferred to the office: Medication discontinued or inactive on the medication list documented in this encounter Plan of Treatment Upcoming Encounters Date Type Department Care Team (Late st Contact Info) Description 09/30/2025 10:30 AM EST Office [facility] [address] [phone] Malinda Patterson MD [address] [address] documented as of this encounter Goals Goal Patient Goal Type Associated Problems Recent Progress Patient-Stated? Author Blood Pressure < 140/90 Blood Pressure 150/90(2024 11:07 AM EDT) No [place], Lyunda, RMA BMI (Calculated) < 30 General 46.7(06/04/20 11:07 AM EDT) No [place], Lyunda, RMA Maintain a healthy diet, exercise regularly and maintain an ideal body weight General No Radha Soto, RMVeena HEMOGLOBIN A1C < 7.0 Result Component 7.4( 11:23 AM EDT) No Giovanni, Lyunda, RMA documented as of this encounter Visit Diagnoses Not on filedocumented in this encounter Care Teams Fabric Lay Out Worker Relationship Specialty Start Date End Date Malinda Patterson MD [address] [address] PCP - General Family Medicine 08/27/14 documented as of this encounter
--- OUTSIDE RECORDS SUMMARY | 2025-06-16 02:15 | XMS_ITS | Encounter Summary ---
Author Organization [place] [address] Care Team Providers Care Test Architect Name Role Phone Malinda Patterson MD Primary Care Provider Encounter Details Date Type Department Care Team (Late st Contact Info) Description 06/04/2025 Results Follow-Up [facility] [address] [place] [address] Belkys Ansari RN [facility] DIABET[facility] RETINOPATHY EXAM Social History Tobacco Use Types Packs/Day Years Used Date Smoking Tobacco: Never Smokeless Tobacco: Never Alcohol Use Standard Drinks/Week Comments Yes 0 (1 standard drink = 0.6 oz pur e alcohol) rarely [facility] Utilities Answer Date Recorded In the past 12 months has e electric, gas, oil, or water company threatened to shut off services in your home? No 09/10/2024 Overall Financial Resource Strain (CARDIA) Answe r Date Recorded How hard is it for you to pa y for the very basics like food, housing, medical care, and heating? Not hard at all 09/10/2024 PHQ-2 Answer Date Recorded PHQ-2 Total Score 0 09/10/2024 [facility] [place] of Occupat ional Health - Occupational Stress [...] for daily living? No 12/05/2023 [facility] IP Transportation Answer D ate Recorded [...] of Assessment Author No 12/04/2024 11:31 AM EST Bishop Moralez RMA documented as of this encounter Mental Status * Because of a physical, mental or emotional condition, does this person have serious difficulty concentrating, remembering or making decisions? Answer Entry Date Author No 12/04/2024 11:31 AM EST Bishop Moralez, RMA documented in this encounter Plan of Treatment Upcoming Encounters Date Type Department Care Team (Late st Contact Info) Description 09/30/2025 10:30 AM EST Office Visit [facility] [address] [place] [address] Malinda Patterson MD [address] [place] [address] documented as of this encounter Goals Goal Patient Goal Type Associated Problems Recent Progress Patient-Stated? Author Blood Pressure < 140/90 Blood Pressure 150/90(2024 11:07 AM EDT) No [place], Lyunda, RMA BMI (Calculated) < 30 General 46.7(06/04/20 11:07 AM EDT) No Giovanni, Lyunda, RMA Maintain a healthy diet, exercise regularly and maintain an ideal body weight General No Radha Soto RMA HEMOGLOBIN A1C < 7.0 Result Component 7.4( 11:23 AM EDT) No Giovanni, Lyunda, RMA documented as of this encounter Visit Diagnoses Not on filedocumented in this encounter Care Teams Test Architect Relationship Specialty Start Date End Date Malinda Patterson MD [address] [place] [address] PCP - General Family Medicine 08/27/14 documented as of this encounter
== END 2025-06-16 02:12 | disposition home or self-care (01) ==
LOC: ER 02:10
PROVIDERS: Emergency Provider Emergency Medicine
DX: E11.65 Type 2 diabetes mellitus with hyperglycemia (principal); E11.42 Type 2 diabetes mellitus with diabetic polyneuropathy; E78.5 Hyperlipidemia, unspecified; I50.9 Heart failure, unspecified
CPT/HCPCS: 71045; 80053; 81001; 82009; 82803; 83880; 84484; 85025; 85610; 93005; 99285; J7120

== ENCOUNTER 2025-10-28 15:14 | Outpatient (CLI) | payer MEDICARE, SELFPAY ==
--- NOTE | 2025-10-28 15:18 | XR_ITS ---
FINAL REPORT CLINICAL HISTORY: LT FOOT PAIN states she has arthritis FINDINGS: Three views show no evidence of acute displaced fracture or dislocation of the visualized bony architecture. There are mild degenerative changes of the midfoot. Moderate calcaneal spurring is identified. IMPRESSION: Mild degenerative changes of the midfoot. Reviewed, Interpreted and Dictated by Safia Plata MD Transcribed by Gretta Stacy Authenticated and [facility]
--- OUTSIDE RECORDS SUMMARY | 2025-10-28 15:18 | XMS_ITS | Clinical Summary ---
Author Organization [facility] Address [address] [place] [address] Phone Care Team Providers Care Clinical Document Improvement Educator Name Role Phone Contreras Casper MD Primary Care Physician [ ] Conditions or Problems Problem Name Problem Code Onset Date Status Entry Date Provider Comment Standard Description Annotate OTITIS EXTERNA 8301884 (SNOMED CT) 06/04 Inactive 06/04 Contreras Casper MD Otitis externa RIGHT NEURODERMATI TIS 893474290 (SNOMED CT) 04/26 Inactive 04/27 Contreras Casper MD Neurodermatitis ABRASION 916259092 (SNOMED CT) 04/26 Inactive 04/26 Contreras Casper MD Abrasion R ARM HAND PAIN, RIGHT 68347399 (SNOMED CT) 04/22 Active 04/22 Contreras Casper MD Hand pain LIVER FUNCTION TESTS ABNORMAL 009244707 (SNOMED CT) 11/19 Active 11/19 Contreras Casper MD Liver function tests outside reference range LICHEN SIMPLEX CHRONICUS 35732723 (SNOMED CT) 12/30 Active 12/30 Jenna Lock MD Lichen simplex chronicus VENTRAL HERNIA 276033727 (SNOMED CT) 12/16 Active 12/16 Contreras Casper MD Hernia of anterior abdominal wall LOW BACK PAIN CHRONIC M54.5 (ICD-10-CM ) 07/17 Active 07/17 Contreras Casper MD Low back pain HYPERKALEMIA 54465979 (SNOMED CT) 06/05 Active 06/05 Contreras Casper MD Hyperkalemia RESTLESS LEG SYNDROME 19565550 (SNOMED CT) 05/28 Active 05/28 Contreras Casper MD Restless legs syndrome HYPOTENSION 72457599 (SNOMED CT) 04/18 Active 04/20 Contreras Casper MD Low blood pressure CHEST PAIN NOS 74040649 (SNOMED CT) 03/28 Active 03/28 Contreras Casper MD Chest pain HYPOTHYROIDI SM 99172711 (SNOMED CT) 02/21 Active 02/21 Contreras Casper MD Hypothyroidism IBS 16757552 (SNOMED CT) 02/21 Active 02/21 Contreras Casper MD Irritable bowel syndrome GERD 609202524 (SNOMED CT) 02/21 Active 02/21 Contreras Casper MD Gastroesophageal reflux disease KNEE PAIN, BILATERAL 47168700 (SNOMED CT) 02/21 Active 02/21 Contreras Casper MD Knee pain HYPERTRIGLYC ERIDEMIA 168941289 (SNOMED CT) 02/21 Active 02/21 Contreras Casper MD Hypertriglycerid emia HYPERLIPIDEM IA 41075544 (SNOMED CT) 02/21 Active 02/21 Contreras Casper MD Hyperlipidemia HYPERTENSION 00663309 (SNOMED CT) 02/21 Active 02/21 Contreras Casper MD Hypertensive disorder MORBID OBESITY 796483968 (SNOMED CT) 02/21 Active 02/21 Contreras Casper MD Morbid obesity DM TYPE 2 CONTROL E11.9 (ICD-10-CM ) 02/21 Active 02/21 Contreras Casper MD Type 2 diabetes mellitus without complications VAGINAL DISCHARGE 142211939 (SNOMED CT) 01/23 Active 01/23 Jojo Jessica WEDDING COORDINATOR Vaginal discharge Medications Medication Instructions Start Date Stop Date Generic Name ND Provider METFORMIN HCL 500 MG TABS TAKE 1 TABLET BY MOUTH 2 TIMES A DAY METFORMIN HCL 67156612038 Contreras Casper MD ASPIR-LOW 81 MG ORAL TABLET DELAYED RELEASE TAKE 1 TABLET BY MOUTH 1 TIME A DAY ASPIRIN 61523254822 Contreras Casper MD MUPIROCIN 2 % OINT APPLY TO AFFECTED AREA 2 TIMES DAILY MUPIROCIN 08807223311 Contreras Casper MD INDOMETHACIN 25 MG CAPS TAKE 1 OR 2 TABLETS BY MOUTH EVERY 8 HOURS NEEDED INDOMETHACIN 26082335381 Contreras Casper MD ASPIRIN LOW DOSE 81 MG ORAL TABLET TAKE ONE BY MOUTH EVERY MORNING ASPIRIN 70546040344 Contreras Casper MD METFORMIN HCL 500 MG TABS TAKE 1 TABLET BY MOUTH 2 TIMES A DAY METFORMIN HCL 09340818288 Contreras Casper MD NAPROXEN 500 MG TABS TAKE 1 TABLET EVERY 12 HOURS NEEDED FOR PAIN NAPROXEN 14293089090 Contreras Casper MD INDOMETHACIN 25 MG CAPS TAKE 1 OR 2 TABLETS BY MOUTH EVERY 8 HOURS NEEDED INDOMETHACIN 64692092430 Contreras Casper MD TRADJENTA 5 MG TABS TAKE 1 TABLET BY MOUTH ONCE A DAY LINAGLIPTIN 45372366530 Contreras Casper MD HYDROCORTISONE 2.5 % OINT apply TID HYDROCORTISONE 68252034004 Jenna Lock MD TRIAMCINOLONE ACETONIDE 0.025 % CREA cutaneous twice a day TRIAMCINOLONE ACETONIDE 38713649350 Jenna Lock MD VENTOLIN HFA 108 (90 Base) MCG/ACT AERS TAKE 2 INHALATIONS EVERY 4 HOURS NEEDED FOR WHEEZING ALBUTEROL SULFATE 76955889240 Contreras Casper MD FLOVENT HFA 110 MCG/ACT INHALATION AEROSOL TAKE 2 INHALATIONS TWICE A DAY FLUTICASONE PROPIONATE HFA 45269374753 Contreras Casper MD METFORMIN HCL 1000 MG TABS TAKE 1 TABLET BY MOUTH 2 TIMES A DAY METFORMIN HCL 42895056678 Contreras Casper MD BLOOD GLUCOSE TEST STRP TEST BLOOD SUGAR ONCE DAILY DX CODE 250.0 DISPENSE PER FORMULARY GLUCOSE BLOOD 24439199279 Contreras Casper MD LISINOPRIL 10 MG TABS ONE TABLET BY MOUTH EVERY DAY LISINOPRIL 30913118399 Contreras Casper MD CLOTRIMAZOLE 1 % CREA apply twice daily to rash area CLOTRIMAZOLE 28211956657 Contreras Casper MD LANCETS ULTRA THIN 30G CHECK SUGAR TWICE A DAY LANCETS 44126007227 Contreras Casper MD OMEPRAZOLE 20 MG CPDR TAKE 1 CAPSULE BY MOUTH ONCE A DAY OMEPRAZOLE 61011648016 Contreras Casper MD GABAPENTIN 300 MG CAPS TAKE ONE CAPSULE BY MOUTH FOUR TIMES DAILY GABAPENTIN 22471074218 Contreras Casper MD NAPROXEN 500 MG TABS TAKE 1 TABLET EVERY 12 HOURS NEEDED FOR PAIN NAPROXEN 32406303189 Contreras Casper MD ASPIRIN LOW DOSE 81 MG ORAL TABLET TAKE ONE BY MOUTH EVERY MORNING ASPIRIN 00759250734 Contreras Casper MD LOVAZA 1 GM CAPS TAKE ONE BY MOUTH TWICE A DAY [id number] ETHYL ESTERS 30798950981 Contreras Casper MD SERTRALINE HCL 100 MG TABS TAKE ONE TABLET BY MOUTH EVERY MORNING SERTRALINE HCL 27409136547 Contreras Casper MD ATORVASTATIN CALCIUM 40 MG TABS TAKE ONE TABLET BY MOUTH EVERY NIGHT ATORVASTATIN CALCIUM 37454979685 Contreras Casper MD LEVOTHROID 175 MCG TABS TAKE ONE TABLET BY MOUTH EVERY DAY LEVOTHYROXINE SODIUM Contreras Casper MD LISINOPRIL 10 MG TABS ONE TABLET BY MOUTH EVERY DAY LISINOPRIL 70548080722 Contreras Casper MD METFORMIN HCL 500 MG TABS ONE TAB BY MOUTH TWICE DAILY METFORMIN HCL 66585437625 Contreras Casper MD CARVEDILOL 3.125 MG TABS TAKE ONE TABLET BY MOUTH TWICE DAILY CARVEDILOL 11521672981 Contreras Casper MD CLOTRIMAZOLE 1 % CREA apply twice daily to rash area CLOTRIMAZOLE 57517341990 Jojo Jessica WEDDING COORDINATOR DIFLUCAN 150 MG TABS TAKE 1 BY MOUTH 1 TIME A DAY FLUCONAZOLE 76011008836 Jojo Jessica WEDDING COORDINATOR Medications Administered No information available. Allergies, Adverse [...] N Lymphocytes [#/volume] in Blood ABS NEUTROPH 90195 CELLS/UL 10*3/uL 2414-9716 H Neutrophils [#/volume] in Blood PLATELETK/UL 397 [...] Detail Referral Orthopedic Refer [facility], [address] [place] [address], [address] Pending order TSH reflex to fr ee [...] tracing Mcar e (+code ECG reading sep) 17095 Pending order ECG reading Mcar e (+code ECG tracing sep) 63554 Pending order Accucheck 79932 Pending order CMP Pending order Lipid Panel Pending order HGBA1c Pending order TSH reflex to fr ee T4 Pending order [facility] (Out O rder) Pending order Pap Age age 21+ (Out Order) Pending order Urine Dip Manual 37647 Pending order Test 8 1025 Procedures Code Procedure Name Date Entry Date [facility] # TSH reflex to free T4 Other Other ORTHO COMMON Orthopedic Referral [facility] 20 20/05/11 07310 [facility] # Lipid Panel 6 68444 [facility] # TSH reflex to free T4 496 [facility] # HGBA1c 66389 [facility] # CMP 6 6399 [facility] # CBC with diff 6 905 [facility] # Uric Acid 496 [facility] # HGBA1c 97604 [facility] # TSH reflex to free T4 05440 [facility] # Lipid Panel 3 90698 [facility] # CMP 3 mri lumbar w-o edg MRI Spine Lumbar w-out contrast 201 02/05/11 04911 [facility] # TSH reflex to free T4 496 [facility] # HGBA1c 79894 [facility] # Lipid Panel 9 81151 [facility] # CMP 9 94941 [facility] # BMP 0 496 [facility] # HGBA1c 01758 [facility] # Lipid Panel 2 00956 [facility] # CMP 2 EX TEST NUC MED Exercise Testing w Nuclear Medicine 20 19/04/14 CPT-23699 ECG tracing Mcare (+ code ECG reading sep) 19534 CPT-92776 ECG reading Mcare (+ code ECG tracing sep) 55328 CPT-10245 Accucheck 00224 X-Ray Knee X-Ray Knee 38672 [facility] # CMP 7 56450 [facility] # Lipid Panel 7 496 [facility] # HGBA1c 28567 [facility] # TSH reflex to free T4 CPT-49070 Urine Dip Manual 38781 01/23 CPT-44862 Test 20608 CPT-53416 Donis Truong (Out Order) 01/23 77167 [facility] # Pap Age age 21+ [...]
--- OUTSIDE RECORDS SUMMARY | 2025-10-28 15:19 | XMS_ITS | Continuity of Care Document ---
Author Organization [facility] Address [address] [place] [address] Assessment No assessment recorded. Plan of Treatment Reminders Order Date Submit Date Provider Last Modified By Organization Details Last Modified Time Details Appointments Follow Up 2025 11:00A M Zofia Saleem APRN Not available Not available Not available Diabetic F/U 2025 09:00A M Zofia Saleem APRN Not available Not available Not available Lab None recorded. Referral None recorded. Procedures None recorded. Surgeries None recorded. Imaging None recorded. Medication Orders None recorded. Patient TargetsNo targets recorded. Patient InstructionsNo instructions recorded. Reason for Referral None Reported. Results Created Date Observation Date Name Description Value Unit Range Abnormal Flag Note LastModifiedBy Organization Detail LastModifiedTime 07/22/2007/23/2025 TSH+F REE T4 TSH 3.940 uIU/m L 0.450- 4.500 normal Not Available [facility] ([facility]) [address] [place], [address], 07/27/2025 12:07:49 07/22/2007/23/2025 TSH+F REE T4 T4,free(dire ct) 1.27 NG/dL 0.82-1 .77 normal Not Available [facility] ([facility]) [address] [place], [address], 07/27/2025 12:07:49 07/22/2007/23/2025 CBC WITH DIFFE RENTI AL/PL ATELE T WBC 10.7 x10e3 /uL 3.4-10 .8 normal Not Available [facility] ([facility]) [address] [place], [address], 07/27/2025 12:07:49 07/22/20 25 07/23/2025 CBC WITH DIFFE RENTI AL/PL ATELE T RBC 4.91 x10e6 /uL 3.77-5 .28 normal Not Available [facility] ([facility]) [address] [place], [address], 07/27/2025 12:07:49 07/22/20 25 07/23/2025 CBC WITH DIFFE RENTI AL/PL ATELE T hemoglobin 12.3 g/dL 11.1-1 5.9 normal Not Available [facility] ([facility]) [address] [place], [address], 07/27/2025 12:07:49 07/22/2007/23/2025 CBC WITH DIFFE RENTI AL/PL ATELE T hematocrit 42.1 % 34.0-4 6.6 normal Not Available [facility] ([facility]) [address] [place], [address], 07/27/2025 12:07:49 07/22/2007/23/2025 CBC WITH DIFFE RENTI AL/PL ATELE T MCV 86 fL 79-97 normal Not Available [facility] ([facility]) [address] [place], [address], 07/27/2025 12:07:49 07/22/2007/23/2025 CBC WITH DIFFE RENTI AL/PL ATELE T MCH 25.1 pg 26.6-3 3.0 below low normal Not Available [facility] ([facility]) [address] [place], [address], 07/27/2025 12:07:49 07/22/20 25 07/23/2025 CBC WITH DIFFE RENTI AL/PL ATELE T MCHC 29.2 g/dL 31.5-3 5.7 below low normal Not Available [facility] ([facility]) [address] [facility], [place], [address], 07/27/2025 12:07:49 07/22/20 25 07/23/2025 CBC WITH DIFFE RENTI AL/PL ATELE T RDW 14.8 % 11.7-1 5.4 Not Available [facility] ([facility]) [address] [facility], [place], [address], 07/27/2025 12:07:49 07/22/20 25 07/23/2025 CBC WITH DIFFE RENTI AL/PL ATELE T platelets 324 x10e3 /uL 150-45 0 normal Not Available [facility] ([facility]) [address] [facility], [place], [address], 07/27/2025 12:07:49 07/22/20 25 07/23/2025 CBC WITH DIFFE RENTI AL/PL ATELE T neutrophils 63 % not estab. normal Not Available [facility] ([facility]) [address] [facility], [place], [address], 07/27/2025 12:07:49 07/22/20 25 07/23/2025 CBC WITH DIFFE RENTI AL/PL ATELE T lymphs 29 % not estab. normal Not Available [facility] ([facility]) [address] [facility], [place], [address], 07/27/2025 12:07:49 07/22/20 25 07/23/2025 CBC WITH DIFFE RENTI AL/PL ATELE T monocytes 5 % not estab. normal Not Available [facility] ([facility]) [address] [facility], [place], [address], 07/27/2025 12:07:49 07/22/20 25 07/23/2025 CBC WITH DIFFE RENTI AL/PL ATELE T eos 2 % not estab. normal Not Available [facility] ([facility]) [address] [facility], [place], [address], 07/27/2025 12:07:49 07/22/20 25 07/23/2025 CBC WITH DIFFE RENTI AL/PL ATELE T basos 1 % not estab. normal Not Available [facility] ([facility]) [address] [facility], [place], [address], 07/27/2025 12:07:49 07/22/20 25 07/23/2025 CBC WITH DIFFE RENTI AL/PL ATELE T immature cells [place] PATROL LIEUTENANT Not Available [facility] ([facility]) [address] [facility], [place], [address], 07/27/2025 12:07:49 07/22/20 25 07/23/2025 CBC WITH DIFFE RENTI AL/PL ATELE T neutrophils (absolute) 6.8 x10e3 /uL 1.4-7. 0 normal Not Available [facility] ([facility]) [address] [place], [address], 07/27/2025 12:07:49 07/22/20 25 07/23/2025 CBC WITH DIFFE RENTI AL/PL ATELE T lymphs (absolute) 3.1 x10e3 /uL 0.7-3. 1 normal Not Available [facility] ([facility]) [address] [place], [address], 07/27/2025 12:07:49 07/22/20 25 07/23/2025 CBC WITH DIFFE RENTI AL/PL ATELE T monocytes(ab solute) 0.5 x10e3 /uL 0.1-0. 9 normal Not Available [facility] ([facility]) [address] [place], [address], 07/27/2025 12:07:49 07/22/20 25 07/23/2025 CBC WITH DIFFE RENTI AL/PL ATELE T eos (absolute) 0.3 x10e3 /uL 0.0-0. 4 normal Not Available [facility] ([facility]) [address] [facility], [place], [address], 07/27/2025 12:07:49 07/22/20 25 07/23/2025 CBC WITH DIFFE RENTI AL/PL ATELE T baso (absolute) 0.1 x10e3 /uL 0.0-0. 2 normal Not Available [facility] ([facility]) [address] [facility], [place], [address], 07/27/2025 12:07:49 07/22/20 25 07/23/2025 CBC WITH DIFFE RENTI AL/PL ATELE T immature granulocytes 0 % not estab. Not Available [facility] ([facility]) [address] [facility], [place], [address], 07/27/2025 12:07:49 07/22/20 25 07/23/2025 CBC WITH DIFFE RENTI AL/PL ATELE T immature grans (abs) 0.0 x10e3 /uL 0.0-0. 1 Not Available [facility] ([facility]) [address] [facility], [place], [address], 07/27/2025 12:07:49 07/22/20 25 07/23/2025 CBC WITH DIFFE RENTI AL/PL ATELE T NRBC [place] PATROL LIEUTENANT Not Available [facility] ([facility]) [address] [facility], [place], [address], 07/27/2025 12:07:49 07/22/20 25 07/23/2025 CBC WITH DIFFE RENTI AL/PL ATELE T hematology comments: BEACH PATROL LIEUTENANT Not Available [facility] ([facility]) [address] [place], [address], 07/27/2025 12:07:49 07/22/20 25 07/23/2025 COMP. METAB OLIC PANEL (14) glucose 120 mg/dL 70-99 above high normal Not Available [facility] ([facility]) [address] [place] [place], [address], 07/27/2025 12:07:50 07/22/20 25 07/23/2025 COMP. METAB OLIC PANEL (14) BUN 15 mg/dL 6-24 normal Not Available [facility] ([facility]) [address] [place], [address], 07/27/2025 12:07:50 07/22/20 25 07/23/2025 COMP. METAB OLIC PANEL (14) creatinine 0.70 mg/dL 0.57-1 .00 normal Not Available [facility] ([facility]) [address] [place], [address], 07/27/2025 12:07:50 07/22/20 25 07/23/2025 COMP. METAB OLIC PANEL (14) eGFR 102 mL/mi n/1.7 3 >59 normal Not Available [facility] ([facility]) [address] [place], [address], 07/27/2025 12:07:50 07/22/20 25 07/23/2025 COMP. METAB OLIC PANEL (14) BUN/creatini ne ratio 21 9-23 normal Not Available [facility] ([facility]) [address] [place] [place], [address], 07/27/2025 12:07:50 07/22/20 25 07/23/2025 COMP. METAB OLIC PANEL (14) sodium 141 mmol/ L 134-14 4 normal Not Available [facility] ([facility]) [address] [place], [address], 07/27/2025 12:07:50 07/22/20 25 07/23/2025 COMP. METAB OLIC PANEL (14) potassium 4.7 mmol/ L 3.5-5. 2 normal Not Available [facility] ([facility]) [address] [place] [place], [address], 07/27/2025 12:07:50 07/22/20 25 07/23/2025 COMP. METAB OLIC PANEL (14) chloride 103 mmol/ L 96-106 normal Not Available [facility] ([facility]) [address] [place], [address], 07/27/2025 12:07:50 07/22/20 25 07/23/2025 COMP. METAB OLIC PANEL (14) carbon dioxide, total 22 mmol/ L 20-29 normal Not Available [facility] ([facility]) [address] [place], [address], 07/27/2025 12:07:50 07/22/20 25 07/23/2025 COMP. METAB OLIC PANEL (14) calcium 9.7 mg/dL 8.7-10 .2 normal Not Available [facility] ([facility]) [address] [place], [address], 07/27/2025 12:07:50 07/22/20 25 07/23/2025 COMP. METAB OLIC PANEL (14) protein, total 7.0 g/dL 6.0-8. 5 normal Not Available [facility] ([facility]) [address] [place], [address], 07/27/2025 12:07:50 07/22/20 25 07/23/2025 COMP. METAB OLIC PANEL (14) albumin 4.0 g/dL 3.8-4. 9 normal Not Available [facility] ([facility]) [address] [place], [address], 07/27/2025 12:07:50 07/22/20 25 07/23/2025 COMP. METAB OLIC PANEL (14) globulin, total 3.0 g/dL 1.5-4. 5 Not Available [facility] ([facility]) [address] [place], [address], 07/27/2025 12:07:50 07/22/20 25 07/23/2025 COMP. METAB OLIC PANEL (14) bilirubin, total 0.6 mg/dL 0.0-1. 2 normal Not Available [facility] ([facility]) [address] [place], [address], 07/27/2025 12:07:50 07/22/20 25 07/23/2025 COMP. METAB OLIC PANEL (14) alkaline phosphatase 140 IU/L 49-135 above high normal Ple ase note refer ence inter hank martínez e Not Available [facility] ([facility]) [address] [place], [address], 07/27/2025 12:07:50 07/22/20 25 07/23/2025 COMP. METAB OLIC PANEL (14) AST (SGOT) 16 IU/L 0-40 normal Not Available [facility] ([facility]) [address] [place], [address], 07/27/2025 12:07:50 07/22/20 25 07/23/2025 COMP. METAB OLIC PANEL (14) ALT (SGPT) 15 IU/L 0-32 normal Not Available [facility] ([facility]) [address] [place], [address], 07/27/2025 12:07:50 07/22/20 25 07/23/2025 LIPID PANEL cholesterol, total 191 mg/dL 100-19 9 normal Not Available [facility] ([facility]) [address] [place], [address], 07/27/2025 12:07:50 07/22/20 25 07/23/2025 LIPID PANEL triglyceride s 64 mg/dL 0-149 normal Not Available [facility] ([facility]) [address] [place], [address], 07/27/2025 12:07:50 07/22/20 25 07/23/2025 LIPID PANEL HDL cholesterol 63 mg/dL >39 normal Not Available [facility] ([facility]) [address] [facility] [place], [address], 07/27/2025 12:07:50 07/22/20 25 07/23/2025 LIPID PANEL VLDL cholesterol jesse 12 mg/dL 5-40 Not Available [facility] ([facility]) [address] [place] [place], [address], 07/27/2025 12:07:50 07/22/20 25 07/23/2025 LIPID PANEL LDL chol calc ([facility]) 116 mg/dL 0-99 above high normal Not Available [facility] ([facility]) [address] [place], [address], 07/27/2025 12:07:50 07/22/20 25 07/23/2025 LIPID PANEL LDL calc comment: BE[place] PATROL LIEUTENANT Not Available [facility] ([facility]) [address] [place], [address], 07/27/2025 12:07:50 07/22/20 25 07/23/2025 VITAM IN B12 AND FOLAT E vitamin B12 313 pg/mL 232-12 45 normal Not Available [facility] ([facility]) [address] [facility], [place], [address], 07/27/2025 12:07:50 07/22/20 25 07/23/2025 VITAM IN B12 AND FOLAT E folate (folic acid), serum 4.9 NG/mL >3.0 normal A serum folat e jayde ntrat ion of less than 3.1 ng/mL is consi dered to repre sent clini jesse defic iency . Not Available [facility] ([facility]) [address] [place], [address], 07/27/2025 12:07:50 07/22/20 25 07/23/2025 HEMOG LOBIN A1C hemoglobin A1C 7.7 % 4.8-5. 6 above high normal Predi abete s: 5.7 - 6.4 Diabe diaz: >6.4 Glyce carole contr ol for adult s with diabe diaz: <7.0 Not Available [facility] ([facility]) [address] [facility], [place], [address], 07/27/2025 12:07:51 07/22/20 25 07/23/2025 VITAM IN D, 25-HY DROXY vitamin D, 25-hydroxy 21.5 NG/mL 30.0-1 00.0 below low normal Vitam in D defic iency has been defin ed by the Insti tute of Medic ine and an Endoc rine Socie ty pract ice guide line as a level of serum 25-OH vitam in D less than 20 ng/mL (1,2) . The Endoc rine Socie ty went on to fur er defin e vitam in D insuf ficie ncy as a level betwe en 21 and 29 ng/mL (2). 1. IOM (Inst itute of Medic ine). 2009. Dieta ry refer ence intak es for calci um and D. Levi velasco [place]: The Natio nal [facility] Press . 2. Justin celis MF, Ranjan beth [place], Mehnaz off-F errar i LAINEZ, et al. Evalu ation , treat ment, and preve ntion of vitam in D defic iency : an Endoc rine Socie ty clini jesse pract ice guide line. EM. 2010; 96(7) :1911 -30. Not Available [facility] ([facility]) [address] [facility], [place], [address], 07/27/2025 12:07:51 07/22/20 25 07/27/2025 VITAM IN B1 (THIA MINE) , BLOOD vit. B1, whole blood 133.5 nmol/ L 66.5-2 00.0 Not Available [facility] ([facility]) [address] [facility], [place], [address], 07/27/2025 12:07:51 07/22/20 25 07/23/2025 MAGNE SIUM magnesium 1.9 mg/dL 1.6-2. 3 normal Not Available [facility] ([facility]) [address], [place], [address], 07/27/2025 12:07:51 Result Notes None recorded. Problems Name Problem SNOMED Code Status Onset Date Resolution Date Notes Provider Name and Address Organization Details Recorded Time Insulin treated type 2 diabetes mellitus 372110052 Active 2024 Rowena Stears null, [place] - [facility] 10:55:44 Essential hypertensio n 20123029 Active 2024 Zofia Saleem, POWERHOU[employer]PERATOR [address], [place], [address], [place] - [facility] 13:30:42 Hypercholes terolemia 65068799 Active 2024 Rowena Stears null, [place] - [facility] 10:56:02 Gastroesoph ageal reflux disease without esophagitis 672619144 Active 2024 Rowena Stears [place] [facility] 10:56:11 Acquired hypothyroid ism 489137255 Active 2024 Rowena Ste[place] [facility] 10:56:31 Congestive heart failure 48013835 Active 2024 Rowena Ste[place] [facility] 10:57:13 Asthma 628083713 Active 2024 Rowena Stears [place] [facility] 10:57:55 Transient cerebral ischemia 947388205 Completed 202407/22/2025 Rowena Stears [place] - [facility] 10:59:21 Overactive urinary bladder 420555798 Active 2024 Rowena Stears [place], [place] - [facility] 11:07:45 Vitamin D deficiency 11852952 Active 2024 Zofia Saleem, POWERHOUSE OPERATOR [address], [place], [address], [place] - [facility] 11:48:47 Hypertrigly ceridemia 160543311 Active 2024 Zofia Saleem, POWERHOUSE OPERATOR [address], [place], [address], [place] - [facility] 11:57:04 Neuropathy 395086150 Active 2024 Zofia Saleem, POWERHOUSE OPERATOR [address], [place], [address], [place] - [facility] 14:03:48 Problem Notes None recorded. Procedures Surgical History Date Name Laterality Status Provider Name and Address Organization Details Recorded Time cholecystectomy completed Rowena Stears [place] - [facility] 07/22/2025 11:02:50 pelvic sling completed Rowena Stears [place] - [facility] 07/22/2025 11:03:04 tumor destruction completed Rowena Stears [place] - [facility] 07/22/2025 11:03:46 appendectomy completed Rowena Stears [place] [facility] 07/22/2025 11:04:00 hernia repair completed Rowena Stears [place] - [facility] 07/22/2025 11:04:22 Imaging Results None recorded. Procedure Notes None recorded. Medical Equipment None Reported. Allergies Allergen ID Allergen Name Allergen Category Reaction Reaction Severity Criticality Documentation Date Start Date Code Code System Note Provider Name and Address Organization Details Recorded Time 642371 Product containin g penicilli n (product) medicatio n Not available Not available Not available 07/22/2025 02778 8001 SNOMED Rowena Stears null, [place] - [facility] 10:51:36 Medications Name Sig Start Date Stop Date Status Note LastModified by Organization Details LastModified Time atorvastati n 80 mg tablet Take 1 tablet every day by oral route. 2024 active Not Available Not Available Not Avai lable prednisone 10 mg tablet Take 1 tablet twice a day by oral route for 5 days. 2024 active Not Available Not Available Not Avai lable gabapentin 600 mg tablet Take 1 tablet 3 times a day by oral route for 30 days. 2024 active Not Available Not Available Not Avai lable oxybutynin chloride ER 10 mg tablet,exte nded release 24 hr TAKE 1 TABLET BY MOUTH DAILY 2024 active Not Available Not Available Not Avai lable tizanidine 4 mg tablet Take 1 tablet 3 times a day by oral route as needed. active Not Available Not Available No t Available acetaminoph en 500 mg tablet Take 1 tablet 4 times a day by oral route. active Not Available Not Available No t Available carvedilol 3.125 mg tablet Take 1 tablet twice a day by oral route. active Not Available Not Available No t Available levothyroxi ne 125 mcg tablet Take 1 tablet every day by oral route. active Not Available Not Available No t Available gabapentin 300 mg capsule Take 2 capsules 3 times a day by oral route. active Not Available Not Available No t Available omeprazole 20 mg capsule,del ayed release Take 1 capsule every day by oral route. active Not Available Not Available No t Available aspirin 81 mg chewable tablet Chew 1 tablet every day by oral route. active Not Available Not Available No t Available ergocalcife rol (vitamin D2) 1,250 mcg (50,000 unit) capsule TAKE 1 CAPSULE BY MOUTH 2 TIMES A WEEK 2024 active Not Available Not Available Not Avai lable albuterol sulfate HFA 90 mcg/actuati on aerosol inhaler Inhale 2 puffs every 4 hours by inhalatio n route. active Not Available Not Available No t Available clotrimazol e 1 % topical cream APPLY TO THE AFFECTED AND SURROUNDI NG AREAS OF SKIN BY TOPICAL ROUTE 2 TIMES PER DAY IN THE MORNING AND EVENING 10/25 completed Not Available Not Available Not Available insulin aspart (U-100) 100 unit/mL (3 mL) subcutaneou s pen Inject 45 units 3 times a day by subcutane ous route before meal(s). active Not Available Not Available No t Available omega-3 acid ethyl esters 1 gram capsule Take 2 capsules twice a day by oral route for 30 days. 2024 active Not Available Not Available Not Avai lable Lantus Solostar U-100 Insulin 100 unit/mL (3 mL) subcutaneou s pen Inject 30 units every day by subcutane ous route at bedtime. 2024 active Not Available Not Available Not Avai lable BD Radha 2nd Gen Pen Needle 32 gauge x active Not Available Not Available Not Available Voltaren Arthritis Pain 1 % topical gel APPLY 2 GRAMS TO THE AFFECTED AREA(S) BY TOPICAL ROUTE 4 TIMES PER DAY 2024 active Not Available Not Available Not Avai lable Vitals Date Recorded Body height Body mass index (BMI) Body weight Heart rate Body temperature Respiratory rate Pain severity - 0-10 verbal numeric rating [Score] - Reported Oxygen saturation Systolic And Diastolic Provider Name and Address Organization Details Last Updated DateTime 162.56 cm 45.5 kg/m2 047123. 98 g 75 /min 98.1 [degF] 18 /min 0 100 % 155/88 mm[Hg] Yuli Encinas [place] - [facility] 11:45:51 Social History Question Answer Notes LastModified by Organizat ion Details LastModified Time Tobacco Smoking Status Never Smoker Rowena cramer [place] - [facility] 07/22/2025 11:00:48 Do You Have An Advance Directive? No Information not available 07/22/2025 Are You Blind Or Do You Have Difficulty Seeing? No Information not available 07/22/2025 What Is Your Level Of Caffeine Consumption? Moderate Information not available 07/22/2025 Are You Deaf Or Do You Have Serious Difficulty Hearing? No Information not available 07/22/2025 What Type Of Diet Are You Following? REGULAR Information not available 07/22/2025 What Is The Highest Grade Or Level Of School You Have Completed Or The Highest Degree You Have Received? [id number] Information not available 07/22/2025 Have There Been Any Changes To Your Family Or Social Situation? No Information no t available 07/22/2025 What Is The Fluoride Status Of Your Home? Unknown Information not available 07/22/2025 Do You Have A Medical Power Of [employer]? No Information not available 07/22/2025 What Was The Date Of Your Most Recent Tobacco Screening? 07/22/2025 Information not available 07/22/2025 How Many Children Do You Have? 5 Information not available 07/22/2025 What Is Your Relationship Status? Information not available 07/22/2025 Do You Have Smoke And Carbon Monoxide Detectors In Your Home? Yes Information not available 07/22/2025 Has Tobacco Cessation Counseling Been Provided? No Information not available 07/22/2025 Do You Have Difficulty Walking Or Climbing Stairs? No Information not available 07/22/2025 Sex: Female Functional Status Question Answer Note LastModified by Organizat ion Details LastModified Time How many times per week do you consume alcohol? 3-4 times per week couple shots every few days Information not available 07/22/2025 Do you use any illicit or recreational drugs? No Information not available 07/22/2025 Do you or have you ever used any other forms of tobacco or nicotine? No Information not available 07/22/2025 What is your level of alcohol consumption? Occasional Information not available 07/22/2025 Are you currently employed? No Information not available 07/22/2025 Do you have transportation difficulties? No Information not available 07/22/2025 Are you able to walk independently without assistance or assistive devices? YESWOREST Information not available 07/22/2025 Do you have difficulty doing errands alone? No Information not available 07/22/2025 Are you able to care for yourself independently? Yes Information not available 07/22/2025 Do you have difficulty dressing, bathing, grooming, or toileting? No Information not available 07/22/2025 Mental Status Question Answer Note LastModified by Organizat ion Details LastModified Time Do you feel stressed (tense, restless, nervous, or anxious, or unable to sleep at night)? [id number] Information not available 07/22/2025 Do you have difficulty concentrating, remembering or making decisions? No Information no t available 07/22/2025 Family History Relationship Description Onset Age of this Age Resolved Age Notes LastModified by Organization Details LastModified Time Father Myocardial infarction bstears Not available 07/22 10:58:25 Mother Myocardial infarction bstears Not available 07/22 10:58:25 Brother Myocardial infarction bstears Not available 07/22 10:58:37 Brother Type 2 diabetes mellitus bstears Not available 2024 10:58:52 Medical History No medical history recorded. Gynecological History Statement/Question Response Menses Monthly N Date of Last Colonoscopy Date of Last Mammogram LMP Unknown Most Recent Bone Density Obstetrics History GPAL:G 5 P 5 0 0 5 Type Value Multiple Births 0 Full Term 5 Induced 0 Spontaneous 0 Premature 0 Living 5 Ectopics 0 Total 5 Immunizations Vaccine Type Date Status Note Provider Nam e and Address Organization Details Recorded Time influenza, seasonal, intradermal, preservative free 4 completed Not Available [facility] 10/25/2025 10:39:23 Influenza, split virus, quadrivalent, preservative 5 completed Not Available [facility] 10/25/2025 10:39:23 Influenza, split virus, quadrivalent, PF 7 completed Not Available [facility] 10/25/2025 10:39:23 Tdap 8 completed Not Available [facility] 10/25/2025 10:39:23 Influenza, split virus, quadrivalent, PF 8 completed Not Available [facility] 10/25/2025 10:39:23 Influenza, split virus, quadrivalent, PF 9 completed Not Available [facility] 10/25/2025 10:39:23 HepB-CpG 0 completed Not Available [facility] 10/25/2025 10:39:23 Influenza, recombinant, quadrivalent, PF 0 completed Not Available [facility] 10/25/2025 10:39:23 Past Encounters Encounter ID Performer Location Encounter Start Date Encounter Closed Date Diagnosis/Indication Diagnosis SNOMED-CT Code Diagnosis ICD10 Code Diagnosis IMO Codes Diagnosis Note [id number] Zofia Saleem APRN [address] [address] 07/22/2025 10:21:13 07/22/2025 11:44:53 Perioral numbness 987784854 R20.0 2109801 Numbness of hand 3088504 04 R20.0 515518 Essential hypertension 46221737 I10 90952 Hypercholesterolemia 136 83568 E78.00 854646 Acquired hypothyroidism 058648752 E03.9 [address] eated type 2 diabetes mellitus 440251586 E11.9 Z79.4 479083 Overactive urinary bladder 666291569 N32.81 [id number] Body mass index 40+ - severely obese [id number] E66.813 Z68.42 [id number] 46.3 [id number] Zofia Saleem APRN [address] [address] 07/29/2025 11:09:52 07/29/2025 12:00:21 Acquired hypothyroidism 395533373 E03.9 11427 Hypercholesterolemia 136 14023 E78.00 685955 Asthma [id number] J45.90 9 [id number] Insulin tr eated type 2 diabetes mellitus [id number] E11.9 Z79.4 [id number] continue diet and exercise with [facility] sed routine diabetic follow up in 3 months and pt is agreeable. Pt counseled on diet and weight management at today's visit. Pt will try to comply with ADA guidelines in regards to diet and increase daily activity as tolerated. Call or RTC sooner than follow up should any questions or concerns arise.*Sandhya betic Measures:M etformin:c an not takeACE/AR B:no will start one next visit-ASA: yesStatin: yesGLP:eli dvise on drinking with meds and dx Essential hypertension [id number] I10 71568 check bp at home- keep logcall for any concerns Health Concerns Section Related Observation LastModified by Organization Detai ls LastModified Time None Recorded Concern Status LastModified by Organization Details LastModified Time None Recorded Payers Encounter Date Sequence Insurance Name Policy Number Policy Carballo Covered Member ID Carballo Member ID Guarantor Name 07/29/2025 1 [employer] (MEDICARE REPLACEMENT/ ADVANTAGE - HMO) [id number] Kristin Lal [id number] Kristin Lal Notes Date Note Type Note Provider Name and Address Organization Details Recorded Time 07/29/2025 text/html 54 yr old female presents for a follow up from last visit. Her bp is elevated in office today- states she drank alcohol last night. pt states she moved here to stay with family after leaving her . she states she took her grandkids back home last pm and got into a argument with her . Pt states then she drank to much after words. pt states she does not normally drink but her family encouraged it. pt states she is doing well no c/o at this time Zofia Saleem, POWERHOUSE OPERATOR [address], [place], [address], [facility] - [facility] 07/29/2025 13:31:39 OBGyn Episode No OBEpisode recorded.
--- OUTSIDE RECORDS SUMMARY | 2025-10-28 15:21 | XMS_ITS | Continuity of Care Document ---
Author Organization [facility] [place] [address] Phone Care Team Providers Care Sailmaker Name Role Phone Unavailable Primary Care Provider Unavailabl e Encounters Date Type Department Care Team Description 09/26/2025 Refill [facility] Diabetes [place] [address] [facility] [address] [place] [address] Marshall Ovalle MD Medication Refill 09/26/2025 Patient Outreach [facility] [address] [place], [place] [id number] Malinda Patterson MD Central Patient Navigator Outreach (AWV questionnaire /) 08/20/2025 Patient Outreach [facility] [address] [place] [address] Wagner Coughlin CPhT Medication Management (Baggage Agent Supervisor Fulfillment Mail Clerk (yarn spinner) [phone]/) 08/20/2025 Patient Outreach [facility] [address] [place] [address] Adore Zimmerman CPhT Medication Management (Baggage Agent Supervisor Fulfillment Mail Clerk: yarn spinner [phone]/) 07/02/2025 Refill [facility]ne[facility] [address] [address] KreShauna morgan APRN Medication Refill 06/07/2025 Telephone [facility] [address] [place] [address] Malinda Patterson MD Prior Authorization 06/04/2025 Results Follow-Up [facility] [address] [place] [address] Belkys Ansari RN IRIS DIABETIC RETINOPATHY EXAM 06/04/2025 10:30 AM EDT Office Visit [facility] [address] [place] [address] Malinda Patterson MD Athlete's foot on [...] hemorrhage; Leg cramps 05/31/2025 Patient Outreach SEP [facility] [address] [place] [address] Malinda Patterson MD Central Patient Navigator Outreach (Awv questionnaire) 04/12/2025 Nurse Triage [facility] [address] [place] [address] Malinda Patterson MD 04/10/2025 Travel 04/10/2025 10:43 AM EDT - 04/10/2025 1:02 PM EDT Emergency [facility] [place] [address] Bart Mcleod DO Hypotension, unspecified hypotension type (Primary Dx) Discharge Disposition: Home or Self Care 04/10/2025 Telephone [facility] [address] [place] [address] Malinda Patterson MD 911/Red Flag (Low BP) 04/09/2025 Nurse Triage [facility] [address] [place] [address] Malinda Patterson MD 04/08/2025 Telephone [facility] [address] [place] [address] Malinda Patterson MD Refill (Lantus ) 04/02/2025 Refill [facility] [address] [facility] [address] [place] [address] Marshall Ovalle MD Medication Refill 04/02/2025 Refill [facility] [address] [address] Shauna Guardado APRN Medication Refill 03/12/2025 Nurse Triage [facility] [address] [place] [address] Malinda Patterson MD 03/07/2025 Results Follow-Up [facility] [address] [place] [address] Malinda Patterson MD COMPLIANCE PANEL, URINE 03/07/2025 Travel 03/07/2025 1:09 AM EDT - 03/07/2025 3:41 AM EDT [facility] [place] [address] Ly Hernández MD Postural dizziness with presyncope (Primary Dx) Discharge Disposition: Home or Self Care 03/05/2025 10:30 AM EDT Office Visit [facility] [address] [place] [address] Malinda Patterson MD Diabetic polyneuropathy associated with type 2 diabetes mellitus (HCC) (Primary Dx); Chronic bilateral low back pain without sciatica; Hypothyroidism, unspecified type; Type 2 diabetes mellitus with peripheral neuropathy (HCC); Encounter for long-term (current) use of high-risk medication; Type 2 diabetes mellitus without complication, unspecified whether terminal carman insulin use (HCC) 03/04/2025 Patient Outreach SEP [facility] [facility] [address] [place] [address] Malinda Patterson MD Central Patient Navigator Outreach (AWV Questionnaire/) 01/24/2025 Refill [facility] Diabetes [place] [address] [facility] [address] [place] [address] Marshall Ovalle MD Medication Refill 01/22/2025 Refill [facility] 5[address] [facility] [place] [address] Malinda Patterson MD Medication Refill 01/05/2025 Nurse Triage [facility] [address] [place] [address] Yuli Bruner, HEATH 01/04/2025 Nurse Triage [facility] [address] [place] [address] Shanae Jacobs, HEATH 01/03/2025 Nurse Triage [facility] [address] [place] [address] Awilda Ross, RN 01/03/2025 Telephone [facility] [address] [address] Radha Rodriguez LPN Post-op Call 01/02/2025 Nurse Triage [facility] [address] [place] [address] Awilda Ross, RN 01/02/2025 Nurse Triage [facility] [address] [place] [address] Shanae Jacobs, RN 01/02/2025 Travel 01/02/2025 11:55 AM EST - 01/02/2025 1:25 PM EST Surgery [facility] [address] [place] [address] Yesi Junior MD POSTERIOR REPAIR (RECTOCELE REPAIR) 01/02/2025 11:55 AM EST Anesthesia Event [facility] [address] [place] [address] Zoltan Ricketts MD Collins, Angela, APRN 01/02/2025 7:42 AM EST - 01/02/2025 4:37 PM EST Hospital Encounter [facility] SAME DAY SURGERY [address] [place] [address] Yesi Junior MD Female genital prolapse, unspecified type; Rectocele; Cystocele, midline; EDITH (stress urinary incontinence, female) Discharge Disposition: Home or Self Care 01/01/2025 8:20 AM EST Office Visit [facility] 5[address] [facility] [place] [address] Malinda Patterson MD Pre-op examination (Primary Dx); Rectocele 12/26/2024 Orders Only [facility] [address] [address] Radha Rodriguez LPN Female genital prolapse, unspecified type (Primary Dx); Rectocele; Cystocele, midline; EDITH (stress urinary incontinence, female) 12/26/2024 Telephone [facility] [address] [address] Radha Rodriguez LPN Pre-op Call 12/26/2024 10:30 AM EST Office Visit [address] [phone] Marshall Ovalle MD Hyperlipidemia associated with type 2 diabetes mellitus (HCC) (Primary Dx); Type 2 diabetes mellitus with hyperglycemia, with long-term current use of insulin (HCC); Hypertension associated with type 2 diabetes mellitus (HCC); Acquired hypothyroidism 12/24/2024 Travel 12/11/2024 Telephone [facility]P Gen [facility] [address] [place] [address] Florencia Padilla RMA Post-op Call 12/06/2024 Travel 12/06/2024 2:10 PM EST - 12/06/2024 3:20 PM EST Surgery [facility] [address] [place] [address] Sree Howell MD LAPAROSCOPIC CHOLECYSTECTOMY POSSIBLE OPEN 12/06/2024 2:59 PM EST Anesthesia Event [facility] [address] [place] [address] Michael Haile MD Grimes, Samantha, AIDAN 12/06/2024 10:57 AM EST - 12/06/2024 6:30 PM EST Hospital Encounter [facility] POST ANESTHESIA [address] [place] [address] Sree Howell MD Calculus of gallbladder with chronic cholecystitis without obstruction Discharge Disposition: Home or Self Care 12/05/2024 Telephone [facility] 5[address] [facility] [place] [address] Bernadette Rangel APRN Results 12/04/2024 1:02 PM EST - 12/04/2024 11:59 PM EST Hospital Encounter [facility] [address] [place] [address] Click, [facility] Pre-op examination; Type 2 diabetes mellitus with peripheral neuropathy (HCC) Discharge Disposition: Home or Self Care 12/04/2024 11:15 AM EST Office Visit [facility] 5[address] [facility] [place] [address] Bernadette Rangel, DEMAND PLANNING ANALYST Pre-op examination (Primary Dx); Calculus of gallbladder without cholecystitis without obstruction; Chronic heart failure, unspecified heart failure type (HCC); Type 2 diabetes mellitus with peripheral neuropathy (HCC); Obesity, Class III, BMI 40-49.9 (morbid obesity) (HCC) 12/03/2024 Telephone [facility] 5[address] [facility] [place] [address] Malinda Patterson MD Refill (multi) 11/27/2024 Travel 11/23/2024 Telephone [facility] [place] [address] [place] [phone] Tommy Chappell MA Medication Refill (Oxybutynin) 11/01/2024 Telephone SEP Gen Surg [facility] 271 [address] [facility] [address] [place] [address] Arely Harris, Clerical Staff Surgery 10/25/2024 11:30 AM EST Office Visit [facility]P Gen Surgery [facility] [address] [place] [address] Sree Howell MD Calculus of gallbladder with chronic cholecystitis without obstruction (Primary Dx); History of ventral hernia repair 10/22/2024 Refill [facility] [address] [facility] [place] [address] Asuncion Almaraz, DO Medication Refill 10/20/2024 Refill [facility] [address] [place] [address] Asuncion Almaraz, DO Medication Refill; Central Patient Navigator Outreach (med refill 30 ) 10/15/2024 6:49 PM EST - 10/15/2024 9:16 PM EST Emergency [facility] [place] [address] Michael Perez DO Biliary calculus of other site without obstruction (Primary Dx); Hyperglycemia Discharge Disposition: Home or Self Care 09/27/2024 Telephone [facility] [address] [address] Radha Rodriguez LPN Surgery Scheduling 09/25/2024 Telephone [facility] [address] [address] Awilda Butler MA Medication Refill 09/24/2024 Telephone [facility] [address] [address] Sadaf Nugent, BRITTANY Other 09/20/2024 11:30 AM EST Office Visit [facility] [address] [address] Yesi Junior MD Stress incontinence (Primary Dx); Rectocele 09/18/2024 Refill [facility] [address] [place] [address] Malinda Patterson MD Medication Refill 09/11/2024 Patient Outreach [facility] [address] Appointment [place] [address] Ciera Quick RN Hospital Follow Up 09/07/2024 10:28 PM EDT - 09/10/2024 4:16 PM EST Hospital Encounter EDG [facility]D [facility] [place] [address] Shanae Elder MD Adler, Jordan M, MD Chest pain, unspecified type (Primary Dx); Abdominal pain, unspecified abdominal location; Calculus of gallbladder and bile duct without cholecystitis or obstruction; Elevated liver enzymes Discharge Disposition: Home or Self Care 09/07/2024 Travel 09/05/2024 Refill [facility] [address] [facility] [place] [address] Malinda Patterson MD Medication Refill 09/04/2024 Refill [facility] [address] [place] [address] Malinda Patterson MD Medication Refill 08/23/2024 Telephone [facility] [email or web address] [address] Marshall Ovalle MD Glucose Monitoring 08/23/2024 9:00 AM EDT Office Visit [facility] [email or web address] [address] Pam Fernandez LPN Type 2 diabetes mellitus with hyperglycemia, with long-term current use of insulin (HCC) (Primary Dx) 08/22/2024 Telephone [facility] [email or web address] [address] Marshall Ovalle MD Medication Refill 08/22/2024 Refill [facility] [email or web address] [place] [address] Marshall Ovalle MD Medication Refill 08/22/2024 10:15 AM EDT Office Visit [facility] Diabetes [place] [address] [address] [facility] [address] [place] [address] Marshall Ovalle MD Type 2 diabetes mellitus with hyperglycemia, with long-term current use of insulin (HCC) (Primary Dx); Hyperlipidemia associated with type 2 diabetes mellitus (HCC); Hypertension associated with type 2 diabetes mellitus (HCC); Acquired hypothyroidism 08/21/2024 Refill [facility] [address] [facility] [place] [place] [address] Malinda Patterson MD Medication Refill 08/13/2024 7:40 AM EDT Procedure visit [facility] Urogynecology [address] [address] Shauna Guardado APRN OAB (overactive bladder) (Primary Dx); Female genital prolapse, unspecified type; EDITH (stress urinary incontinence, female); Urinary frequency; Yeast dermatitis 07/25/2024 Telephone [facility] 510 [facility] [place] [address] Malinda Patterson MD Medication Management (Blood-Glucose Sensor [...] update) 07/17/2024 2:30 PM EDT Office Visit [facility] Urogynecology [address] [address] Yesi Junior MD Mixed incontinence (Primary Dx); Cystocele, midline; Frequency of urination; Morbid obesity with BMI of 50.0-59.9, adult (HCC); Chronic heart failure, unspecified heart failure type (HCC); Type 2 diabetes mellitus with peripheral neuropathy (HCC); Ventral hernia, recurrent; Expressive aphasia; Dysarthria; Hyperlipidemia LDL goal <100; Acquired hypothyroidism; TIA (transient ischemic attack); Urinary frequency; Yeast dermatitis 07/12/2024 7:31 AM EDT - 07/12/2024 10:07 AM EDT Hospital Encounter [facility] [place] [address] [place] [address] Click, Edg [facility] One Type 2 diabetes mellitus with hyperglycemia, with long-term current use of insulin (HCC); Hyperlipidemia associated with type 2 diabetes mellitus (HCC); Hypertension associated with type 2 diabetes mellitus (HCC); Acquired hypothyroidism Discharge Disposition: Home or Self Care 07/12/2024 10:08 AM EDT - 07/12/2024 11:59 PM EDT Hospital Encounter [facility] [address] [place] [address] Malinda Patterson MD Encounter for screening mammogram for breast cancer Discharge Disposition: Home or Self Care 07/11/2024 10:30 AM EDT Office Visit [facility] [address] [place] [address] Malinda Patterson MD Medicare annual wellness visit, [...] Cervical cancer screening 07/10/2024 Patient Outreach [facility] [address] [place] [address] Malinda Patterson MD Central Patient Navigator Outreach (Awv questionnaire) 07/06/2024 Refill [facility] [address] [place] [address] Malinda Chaudhry MD Medication Refill 07/02/2024 Refill [facility] [address] [place] [address] Malinda Patterson MD Medication Refill 06/28/2024 Travel 06/28/2024 1:38 PM EDT - 06/28/2024 5:54 PM EDT Emergency [facility] [address] [place], [place] [phone] Hunter Dueñas MD Periumbilical abdominal pain (Primary Dx) Discharge Disposition: Home or Self Care 06/28/2024 Refill [facility] [address] [place] [address] Malinda Patterson MD Medication Refill 06/18/2024 Refill [facility] [address] [place] [address] Malinda Patterson MD Medication Refill 06/04/2024 Refill [facility] [address] [place] [address] Malinda Patterson MD Medication Refill 06/03/2024 Refill [facility] [address] [place] [address] Malinda Patterson MD Medication Refill 05/31/2024 Refill [facility] [address] [place] [address] Malinda Patterson MD Medication Refill 05/28/2024 Telephone [facility] [place] [address] [facility] [address] [place] [address] Marshall Ovalle MD Medication Management 05/28/2024 Refill [facility] [address] [place] [address] Malinda Patterson MD Medication Refill 05/26/2024 Refill [facility] [address] [place] [address] Malinda Patterson MD Medication Refill 05/24/2024 Patient Outreach [facility] [address] [place] [address] [address] Appointment [place] [address] Ahmet Dc LPN ED Follow-Up Call 05/18/2024 Refill [facility] 5103 [facility] [place] [address] Malinda Patterson MD Medication Refill 05/16/2024 Nurse Triage [facility] [address] [place] [address] Ady Dodson RN 05/16/2024 Travel 05/16/2024 10:27 AM EDT - 05/16/2024 10:51 AM EDT Emergency [place] [address] [address] [facility] [place] [place] [address] Ly Hernández MD Hyperglycemia (Primary Dx) Discharge Disposition: Home or Self Care 05/09/2024 Telephone [facility] [address] [place] [address] Barbara Reyes, outpatient physical therapist assistant Management 05/09/2024 Refill [facility] [address] [place] [address] Malinda Patterson MD Medication Refill 05/07/2024 10:15 AM EDT Office Visit [facility] Diabetes [address] [place] [address] Marshall Ovalle MD Type 2 diabetes mellitus with hyperglycemia, with long-term current use of insulin (HCC) (Primary Dx); Type 2 diabetes mellitus with peripheral neuropathy (HCC); Hyperlipidemia associated with type 2 diabetes mellitus (HCC); Hypertension associated with type 2 diabetes mellitus (HCC); Vaginal yeast infection 04/30/2024 Refill [facility] 6[address] [facility] [place] [address] Malinda Patterson MD Medication Refill 04/19/2024 Refill [facility] [address] [place] [address] Malinda Patterson MD Medication Refill 04/09/2024 Patient Outreach [facility] [address] [place], [place] [phone] Malinda Patterson MD Central Order Completion Outreach (mammogram ) 04/09/2024 9:00 AM EDT Office Visit [facility] [address] [facility] [facility] [address] [place] [address] Alicia Gallegos, RD,LD Type 2 diabetes mellitus with hyperglycemia, with long-term current use of insulin (HCC) (Primary Dx) 03/22/2024 Refill [facility] [address] [place] [address] Malinda Patterson MD Medication Refill 03/14/2024 Refill [facility] [address] [place] [address] Malinda Patterson MD Medication Refill 03/02/2024 Patient Outreach [facility] [address] [place] [address] Mylene Dumont LPN CM- Telephonic Outreach; CM- Longitudinal Graduation 02/28/2024 Refill [facility] [address] [place] [address] Malinda Patterson MD Medication Refill 02/24/2024 1:00 PM EDT Office Visit [facility] [address] [facility] [facility] [address] [place] [address] Heather Weller, RN Type 2 diabetes mellitus with peripheral neuropathy (HCC) (Primary Dx) 02/18/2024 Refill [facility] [address] [place] [address] Malinda Patterson MD Medication Refill; Central Patient Navigator Outreach (Med refill 2nd) 02/13/2024 Refill [facility] [address] [place] [address] Malinda Patterson MD Medication Refill 02/09/2024 Refill [facility] [address] [place] [address] Malinda Patterson MD Medication Refill 02/02/2024 8:00 AM EDT Office Visit [address] [place] [address] Marshall Ovalle MD Type 2 diabetes mellitus with hyperglycemia, with long-term current use of insulin (HCC) (Primary Dx); Hyperlipidemia associated with type 2 diabetes mellitus (HCC); Hypertension associated with type 2 diabetes mellitus (HCC); Acquired hypothyroidism 01/31/2024 Patient Outreach SEP [facility] 5[address] [facility] [place] [address] Mylene Dumont LPN CM- Telephonic Outreach; CM- Longitudinal Continued (DM) 01/17/2024 Orders Only [facility] [address] [place] [address] Swathi Hart Veena Type 2 diabetes mellitus with peripheral neuropathy (HCC) 01/02/2024 Patient Outreach SE[facility] [facility] [place] [address] Mylene Dumont LPN CM- Telephonic Outreach; CM- Longitudinal Continued 12/30/2023 Patient Outreach [facility] [address] [place] [address] Malinda Patterson MD Central Patient Navigator Outreach (AWV Exam Due) 12/22/2023 Refill [facility] [address] [place] [address] Malinda Patterson MD Medication Refill 12/19/2023 Refill SE[facility] [address] [place] [address] Malinda Patterson MD Medication Refill 12/08/2023 Telephone [facility] [address] [place] [address] Malinda Patterson MD Follow-up 12/05/2023 3:00 PM EST Office Visit [facility] [address] [place] [address] Mylene Dumont, REAL ESTATE SERVICES ADMINISTRATOR Encounter for counseling for care management of patient with chronic conditions and complex health needs using nurse-based model (Primary Dx); Type 2 diabetes mellitus with peripheral neuropathy (HCC) 12/05/2023 2:20 PM EST Office Visit [facility] [address] [place] [address] Malinda Patterson MD Type 2 diabetes mellitus with peripheral neuropathy (HCC) (Primary Dx) 11/24/2023 Telephone [facility] [address] [place] [address] Malinda Patterson MD Other (insulin chart?) 11/23/2023 Travel 11/23/2023 9:07 AM EST - 11/23/2023 1:19 PM EST Emergency [facility] [place], [place] [phone] Matthew Sherman MD Elleman, Michael N, MD Hyperglycemia (Primary Dx); Influenza A; Lightheadedness Discharge Disposition: Home or Self Care 11/10/2023 Refill [facility] [address] [place] [address] Malinda Patterson MD Medication Refill 11/04/2023 Refill [facility] [address] [place] [address] Malinda Patterson MD Medication Refill 10/29/2023 Refill [facility] [address] [place] [address] Malinda Patterson MD Medication Refill 10/20/2023 Refill [facility] [address] [place] [address] Asuncion Almaraz, DO Medication Refill 10/20/2023 Refill [facility] [address] [place] [address] Asuncion Almaraz, DO Medication Refill 10/04/2023 Refill [facility] [address] [place] [address] Sami Almaraza, DO Medication Refill 10/04/2023 Patient Outreach SEP [facility] [address] [place], [place] [phone] Malinda Patterson MD Central Patient Navigator Outreach (A1c); Central Order Completion Outreach (Mammogram/) 10/03/2023 11:01 AM EST - 10/03/2023 11:59 PM EST Hospital Encounter [facility] [place] [address] [place], [place] [phone] [facility], Ed[facility] Type 2 diabetes mellitus with peripheral neuropathy (HCC) Discharge Disposition: Home or Self Care 10/03/2023 10:00 AM EST Office Visit [facility] [address] [place] [address] Malinda Patterson MD Type 2 diabetes mellitus with peripheral neuropathy (HCC) (Primary Dx) 09/28/2023 Refill [facility] [address] [place] [address] Malinda Patterson MD Medication Refill 09/23/2023 11:00 AM EST Office Visit [facility] [address] [place] [address] Michaela Landon MD Person under investigation for COVID-19 (Primary Dx); Upper respiratory tract infection, unspecified type; Pleuritic chest pain 09/20/2023 Refill [facility] [address] [place] [address] Asuncion Almaraz, DO Medication Refill 09/16/2023 Refill [facility] [address] [place] [address] Asuncion Almaraz, DO Medication Refill 09/13/2023 Refill [facility] [address] [place] [address] Asuncion Almaraz, DO Medication Refill 09/12/2023 Refill [facility] [address] [place] [address] Asuncion Almaraz, DO Medication Refill 09/02/2023 3:15 PM EDT Telemedicine [facility] [address] [place] [address] Simone Franco, DO Vaginal yeast infection (Primary Dx); Morbid obesity with BMI of 50.0-59.9, adult ([facility]); Type 2 diabetes mellitus with peripheral neuropathy ([facility]) 09/02/2023 Telephone [facility] [address] [place] [address] Malinda Patterson MD Symptom Call (Itching and irritation in the vaginal area and under the arms) 09/02/2023 Refill [facility] [address] [place] [address] Malinda Patterson MD Medication Refill 08/09/2023 Patient Outreach [facility] [address] [place] [address] Malinda Patterson MD Central Order Completion Outreach (mammogram) 07/29/2023 Nurse Triage [facility] [place] [address] [place] [address] Keesha Thacker RN 07/27/2023 9:40 AM EDT Office Visit [facility] [address] [place] [address] Malinda Patterson MD Herpes zoster without complication (Primary Dx) 07/13/2023 Travel 07/13/2023 9:14 PM EDT - 07/13/2023 11:02 PM EDT Emergency [facility] [place] [address] Darwin Martínez MD Lumbar back pain (Primary Dx) Discharge Disposition: Home or Self Care 07/06/2023 Telephone [facility] [address] [place] [address] Malinda Patterson MD Medication Management (novolog) 07/02/2023 Refill [facility] [address] [place] [address] Malinda Patterson MD Medication Refill 06/29/2023 Telephone [facility] [address] [place] [address] Malinda Patterson MD Schedule Appointment (2nd attempt to reach patient/) 06/28/2023 Telephone [facility] [address] [place] [address] Malinda Patterson MD Medication Management (Insulin Syringes for insulin aspart U-100 (NOVOLOG U-100 INSULIN ASPART).) 06/27/2023 Telephone [facility] [address] [place] [address] Malinda Patterson MD Schedule Appointment 06/24/2023 Telephone [facility] [address] [place] [address] Malinda Patterson MD Medication Management (yeast infection ) 06/24/2023 10:30 AM EDT Office Visit [facility] [address] [place] [address] Malinda Patterson MD Type 2 diabetes mellitus with peripheral neuropathy (HCC) (Primary Dx); Chronic heart failure, unspecified heart failure type (HCC); Yeast infection; Encounter for screening mammogram for breast cancer; Noncompliance 06/23/2023 Orders Only [facility] [address] [place] [address] Malinda Patterson MD Yeast infection (Primary Dx); Type 2 diabetes mellitus with peripheral neuropathy (HCC) 06/21/2023 Telephone [facility] [address] [place] [address] Malinda Patterson MD Medication Management (petrolatum,white (ILEX/DERMAPHOR) 1 Each 2 06/21/2023 /Sig - Route: Apply 1 g topically 2 times daily. Thin layer twice daily to affected skin. Largest tube available - Topical //) 06/21/2023 11:51 AM EDT - 06/21/2023 11:59 PM EDT Hospital Encounter [facility] [address] [place] [address] Click, [facility] Type 2 diabetes mellitus with peripheral neuropathy (HCC) Discharge Disposition: Home or Self Care 06/21/2023 10:40 AM EDT Office Visit [facility] [address] [place] [address] Malinda Patterson MD Vaginal yeast infection (Primary Dx); Vaginal irritation; Type 2 diabetes mellitus with peripheral neuropathy (HCC) 06/19/2023 Refill [facility] [address] [place] [address] Asuncion Almaraz, DO Medication Refill 06/17/2023 Telephone [facility] [address] [place] [address] Malinda Patterson MD Medication Refill 06/14/2023 Refill [facility] [address] [place] [address] Asuncion Almaraz, DO Medication Refill 06/13/2023 Refill [facility] [address] [place] [address] Malinda Patterson MD Medication Refill 05/25/2023 Refill [facility] [address] [place] [address] Malinda Patterson MD Medication Refill 05/17/2023 Refill [facility] [address] [place] [address] Asuncion Almaraz, DO Medication Refill 05/12/2023 Refill [facility] [address] [place] [address] Asuncion Almaraz, DO Medication Refill 05/11/2023 Refill [facility] [address] [place] [address] Asuncion Almaraz, DO Medication Refill; Central Patient Navigator Outreach (care gap: awv/mammo) 05/09/2023 Refill [facility] [address] [place] [address] Malinda Patterson MD Medication Refill 04/28/2023 Telephone [facility] [address] [place] [address] Malinda Patterson MD Medication Refill 04/20/2023 Refill [facility] [address] [place] [address] Malinda Patterson MD Medication Refill 04/17/2023 Refill [facility] [address] [place] [address] Malinda Patterson MD Medication Refill 04/11/2023 Refill [facility] [address] [place] [address] Asuncion Almaraz, DO Medication Refill 04/08/2023 Refill [facility] [address] [place] [address] Malinda Patterson MD Medication Refill 04/08/2023 Refill [facility] [address] [place] [address] Asuncion Almaraz, DO Medication Refill; Central Patient Navigator Outreach (Med refill 2nd) 04/06/2023 Telephone [facility] [address] [place] [address] Malinda Patterson MD Insurance Verification 03/25/2023 3:15 PM EDT Office Visit [facility] [address] [place] [address] Bernadette Rangel APRN UTI (urinary tract infection), uncomplicated (Primary Dx); Vagina itching; Pelvic pressure in female 03/25/2023 Telephone [facility] [address] [place] [address] Malinda Patterson MD Symptom Call 03/20/2023 Refill [facility] [address] [place] [address] Asuncion Almaraz, DO Medication Refill 03/20/2023 Refill [facility] [address] [place] [address] Malinda Patterson MD Medication Refill 03/08/2023 Refill [facility] [address] [place] [address] Asuncion Almaraz, DO Medication Refill 03/08/2023 Refill [facility] [address] [place] [address] Asuncion Almaraz, DO Medication Refill; Central Patient Navigator Outreach (med refills [facility] ) 03/08/2023 Refill [facility] [address] [place] [address] Malinda Patterson MD Medication Refill 02/19/2023 Refill [facility] [address] [place] [address] Malinda Patterson MD Medication Refill 02/13/2023 Refill [facility] [address] [place] [address] Malinda Patterson MD Medication Refill 02/07/2023 Refill [facility] [address] [place] [address] Malinda Patterson MD Medication Refill 02/05/2023 Refill [facility] [address] [place] [address] Malinda Patterson MD Medication Refill 01/17/2023 Refill [facility] [address] [place] [address] Malinda Patterson MD Medication Refill 01/16/2023 Refill [facility] [address] [place] [address] Malinda Patterson MD Medication Refill 01/07/2023 Refill [facility] [address] [place] [address] Malinda Patterson MD Medication Refill 12/29/2022 Refill [facility] [address] [place] [address] Asuncion Almaraz, Medication Refill 12/28/2022 Patient Outreach [facility] [address] [place] [address] Mylene Dumont LPN CM- Telephonic Outreach; CM-Resource Coordination 12/27/2022 Orders Only [facility] [address] [place] [address] Swathi Hart RMA Type 2 diabetes mellitus with peripheral neuropathy (HCC) (Primary Dx) 12/27/2022 Refill [facility] [address] [place] [address] Malinda Patterson MD Medication Refill 12/24/2022 Telephone [facility] [address] [place] [address] Malinda Patterson MD Medication Refill (ergocalciferol (VITAMIN D) 1,250 mcg (50,000 unit) Oral Capsule) 12/23/2022 Patient Outreach [facility] [address] [facility] [place] [address] Malinda Patterson MD Central Order Completion Outreach (mammogram ) 12/22/2022 Telephone [facility] [address] [address] Emilee Schmidt RMA Referral 12/22/2022 Travel 12/22/2022 10:15 AM EST - 12/22/2022 11:59 PM EST Hospital Encounter [facility] [address] [place] [address] Ronn, [facility] Hypothyroidism, unspecified type; Atherosclerosis of aorta; Chronic heart failure, unspecified heart failure type (HCC); Type 2 diabetes mellitus with peripheral neuropathy (HCC) Discharge Disposition: Home or Self Care 12/22/2022 8:50 AM EST Office Visit [facility] [address] [place] [address] Malinda Patterson MD Diabetic polyneuropathy associated [...] breast cancer 12/09/2022 Telephone [facility] [address] [place] [address] Malinda Patterson MD Medication Management (omeprazole (PRILOSEC) 20 mg Oral Capsule) 12/02/2022 Refill [facility] [address] [place] [address] Asuncion Almaraz, DO Medication Refill 12/01/2022 Refill [facility] [address] [place] [address] Asuncion Almaraz, DO Medication Refill 11/22/2022 Refill [facility] [address] [place] [address] Michaela Landon MD Medication Refill 11/17/2022 Refill [facility] [address] [place] [address] Michaela Landon MD Medication Refill 11/16/2022 Refill [facility] [address] [place] [address] Michaela Landon MD Medication Refill 11/16/2022 Refill [facility] [address] [place] [address] Malinda Patterson MD Medication Refill 11/16/2022 Refill [facility] [address] [place] [address] Asuncion Almaraz, DO Medication Refill 11/05/2022 Refill [facility] [address] [place] [address] Malinda Patterson MD Medication Refill 11/05/2022 Telephone [facility] [address] [place] [address] Malinda Patterson MD Medication Refill (omega 3) 11/05/2022 Refill [facility] [address] [place] [address] Malinda Patterson MD Medication Refill 11/03/2022 Refill [facility] [address] [place] [address] Asuncion Almaraz, DO Medication Refill 11/02/2022 Refill [facility] [address] [place] [address] Asuncion Almaraz, DO Medication Refill 10/21/2022 Travel 10/21/2022 1:20 PM EST - 10/21/2022 1:40 PM EST Surgery [facility] [address] [place] [address] Nicolas Rowland MD COLONOSCOPY-ENDO DEPT ONLY (ANESTHESIA) 10/21/2022 1:35 PM EST Anesthesia Event [facility] [address] [place] [address] Lacy Shaw MD Powell, Jeanne, DEMAND PLANNING ANALYST 10/21/2022 11:41 AM EST - 10/21/2022 2:30 PM [facility] Hospital Encounter [facility] [address] [place], [place] [id number] Nicolas Rowland MD Screening for colon cancer Discharge Disposition: Home or Self Care 10/18/2022 Refill [facility] [address] [place] [address] Malinda Patterson MD Medication Refill 10/16/2022 Refill [facility] [address] [place] [address] Malinda Patterson MD Medication Refill 10/14/2022 Telephone [facility] [address] [place] [address] Malinda Patterson MD Advice Only (BP is low after taking meds) 10/06/2022 3:10 PM EST Office Visit [facility] [address] [place] [address] Malinda Patterson MD [id number] condition (Primary Dx); Diabetic polyneuropathy associated with type 2 diabetes mellitus (HCC); Chronic bilateral low back pain without sciatica; Type 2 diabetes mellitus without complication, unspecified whether terminal carman insulin use (HCC) 10/04/2022 Refill [facility] [address] [place] [address] Asuncion Almaraz, DO Medication Refill 10/01/2022 Refill [facility] [address] [place] [address] Asuncion Almaraz, DO Medication Refill 09/25/2022 Refill [facility] [address] [place] [address] Malinda Patterson MD Medication Refill 09/24/2022 Telephone [facility] [address] [place] [address] Malinda Patterson MD Other (cough syrup ); Medication Management (benzonatate (TESSALON) 100 mg Oral Capsule 14 Capsule 0 09/22/2022 10/22/2022 /Sig - Route: Take 2 Capsules by mouth 3 times daily as needed for Cough for up to 30 days. - Oral //) 09/24/2022 Refill [facility] [address] [place] [address] Malinda Patterson MD Medication Refill 09/23/2022 Refill [facility] [address] [place] [address] Malinda Patterson MD Medication Refill; Covid Follow Up 09/22/2022 11:48 AM EST - 09/22/2022 1:33 PM EST Emergency [facility] [place] [address] Juan Nguyễn MD COVID-19 (Primary Dx) Discharge Disposition: Home or Self Care 09/22/2022 Nurse Triage [facility] [address] [place] [address] Vanesa Marley, HEATH 09/16/2022 Telephone [facility] [address] [facility] [place] [address] Malinda Patterson MD Appointment Needed; Medication Refill 09/11/2022 Refill [facility] [address] [place] [address] Malinda Patterson MD Medication Refill 08/23/2022 Refill [facility] [address] [facility] [address] [facility] [place] [address] Michaela Landon MD Medication Refill 08/17/2022 Refill [facility] [address] [facility] [place] [address] Malinda Patterson MD Medication Refill 07/29/2022 Telephone [facility] [address] [facility] [address] [place] [address] Aldo Lion MD Medication Management (Colyte ) 07/29/2022 Telephone [facility] [address] [place] [address] Malinda Patterson MD Visit Follow Up 07/19/2022 Refill [facility] [address] [place] [address] Rufina Asuncion, DO Medication Refill 07/19/2022 Refill [facility] [address] [place] [address] Malinda Patterson MD Medication Refill 07/12/2022 Refill [facility] [address] [place] [address] Malinda Patterson MD Medication Refill 07/08/2022 Telephone [facility] [address] [place] [address] Malinda Patterson MD Medication Management (Vit D) 06/30/2022 Orders Only [facility] [address] [place] [address] Adore Pruitt [place] Hypothyroidism, unspecified type (Primary Dx) 06/28/2022 11:30 AM EDT Office Visit [facility] [address] [place] [address] Mylene Dumont LPN Encounter for counseling for care management of patient with chronic conditions and complex health needs using nurse-based model (Primary Dx) 06/28/2022 Travel 06/28/2022 11:47 AM EDT - 06/28/2022 11:59 PM EDT Hospital Encounter [facility] [address] [place] [address] Ronn, [facility] Type 2 diabetes mellitus with peripheral neuropathy (HCC); Hypothyroidism, unspecified type; Hyperlipidemia LDL goal <100; Annual physical exam; Post-menopausal Discharge Disposition: Home or Self Care 06/28/2022 10:40 AM EDT Office Visit [facility] [address] [place] [address] Malinda Patterson MD Annual physical exam (Primary Dx); Diabetic polyneuropathy associated with type 2 diabetes mellitus (HCC); Chronic bilateral low back pain without sciatica; Type 2 diabetes mellitus with peripheral neuropathy (HCC); Hypothyroidism, unspecified type; Hyperlipidemia LDL goal <100; Encounter for colorectal cancer screening; Post-menopausal 06/23/2022 Patient Outreach [facility] [address] [place] [address] Mylene Dumont LPN CM- Telephonic Outreach; CM-Resource Coordination 06/20/2022 Refill [facility] [address] [place] [address] Asuncion Almaraz, Medication Refill 06/18/2022 Telephone [facility] [address] [place] [address] Malinda Patterson MD Medication Management (DM supplies and medication) 06/15/2022 Refill [facility] [address] [place] [address] Malinda Patterson MD Medication Refill 06/14/2022 Refill [facility] [address] [place] [address] Malinda Patterson MD Medication Refill 06/09/2022 Telephone [facility] [employer] [address] [address] Celina Stone, HEATH Schedule Appointment 06/01/2022 2:00 PM EDT Telemedicine [facility] [address] [place] [address] Mylene Dumont LPN Encounter for counseling for care management of patient with chronic conditions and complex health needs using nurse-based model (Primary Dx) 05/31/2022 Refill [facility] [address] [place] [address] Malinda Patterson MD Medication Refill 05/28/2022 Refill [facility] [address] [place] [address] Malinda Patterson MD Medication Refill 05/16/2022 Refill [facility] [address] [place] [address] Malinda Patterson MD Medication Refill 05/11/2022 Refill [facility] [address] [place] [address] Malinda Patterson MD Medication Refill 04/16/2022 Refill [facility] [address] [place] [address] Malinda Patterson MD Medication Refill 04/16/2022 Refill [facility] [address] [place] [address] King Joyce MD Medication Refill 04/16/2022 Refill [facility] [address] [place] [address] King Joyce MD Medication Refill 04/15/2022 Refill [facility] [address] [place] [address] Michaela Landon MD Medication Refill 04/14/2022 Refill [facility] [address] [place] [address] Michaela Landon MD Central Patient Navigator Outreach (Med Refill 1st) 04/14/2022 Refill [facility] [address] [place] [address] Malinda Patterson MD Medication Refill 04/13/2022 Patient Outreach [facility] [address] [place] [address] Mylene Dumont LPN CM- Telephonic Outreach; CM- Longitudinal Continued (DM- A1C- 8.2 on 11/09/2021) 04/09/2022 Refill [facility] [address] [place] [address] Malinda Patterson MD Medication Refill 03/30/2022 Telephone [facility] [address] [place] [address] Malinda Patterson MD Medication Management (LEVOthyroxine (SYNTHROID) 150 mcg Oral Tablet) 03/30/2022 Refill [facility] [address] [place] [address] Malinda Patterson MD Medication Refill (gabapentin (NEURONTIN) 300 mg Oral Capsule, omeprazole (PRILOSEC) 20 mg Oral Capsule, , aspirin 81 mg Oral Tablet, ) 03/17/2022 Refill [facility] [address] [place] [address] Michaela Landon MD Medication Refill 02/23/2022 Refill [facility] [address] [place] [address] Malinda Patterson MD Medication Refill 02/16/2022 Refill [facility] [address] [place] [address] Malinda Patterson MD Medication Refill 02/15/2022 Refill [facility] [address] [place] [address] Malinda Patterson MD Medication Refill 02/11/2022 Patient Outreach [facility] [address] [place] [address] Mylene Dumont LPN CM- Telephonic Outreach; CM- Longitudinal Continued (DM- A1C- 8.2 on 11/09/2021); CM- Telephonic Outreach 02/10/2022 Telephone [facility] [address] [place] [address] Malinda Patterson MD Medication Management (dulaglutide (TRULICITY) 0.75 mg/0.5 mL SubQ Pen Injector6 mL25/01/2022) 02/10/2022 Refill [facility] [address] [place] [address] Malinda Patterson MD Medication Refill 01/31/2022 Refill [facility] [address] [place] [address] Malinda Patterson MD Medication Refill 01/28/2022 Refill [facility] [address] [place] [address] Malinda Patterson MD Medication Refill 01/28/2022 Refill [facility] [address] [place] [address] Malinda Patterson MD Medication Refill 01/25/2022 Refill [facility] [address] [place] [address] Malinda Patterson MD Medication Refill 01/18/2022 Refill [facility] [address] [place] [address] Michaela Landon MD Medication Refill 01/11/2022 Refill [facility] [address] [place] [address] Michaela Landon MD Medication Refill 01/10/2022 Refill [facility] [address] [place] [address] Malinda Patterson MD Medication Refill 01/09/2022 Refill [facility] [address] [place] [address] Malinda Patterson MD Medication Refill 01/04/2022 1:30 PM EST Telemedicine [facility] [address] [place] [address] Mylene Dumont LPN Enrolled in chronic care management (Primary Dx); Type 2 diabetes mellitus with peripheral neuropathy (HCC) 01/04/2022 Refill [facility] [address] [place] [address] Malinda Patterson MD Medication Refill 12/25/2021 Refill [facility] [address] [place] [address] Malinda Patterson MD Medication Refill 12/22/2021 Refill [facility] [address] [place] [address] Malinda Patterson MD Medication Refill (strips, lancets, and bridget pen needle) 12/21/2021 Patient Outreach [facility] [address] [place], [place] [id number] Hilda Hoffman RN ED Follow-Up Call 12/18/2021 Travel 12/18/2021 5:59 PM EST - 12/18/2021 9:42 PM EST Emergency [facility] [address] [place], [place] [id number] Dev Sam MD Syncope, unspecified syncope type (Primary Dx); Bronchitis Discharge Disposition: Home or Self Care 12/15/2021 Telephone [facility] [address] [place] [address] Malinda Patterson MD Other 12/02/2021 Patient Outreach [facility] [address] [place] [address] Mylene Dumont LPN CM- Telephonic Outreach (Carolyn Mann f/u) 11/28/2021 Refill [facility] [address] [place] [address] Malinda Patterson MD Medication Refill 11/09/2021 12:30 PM EST Office Visit [facility] [address] [place] [address] Mylene Dumont LPN Type 2 diabetes mellitus with peripheral neuropathy (HCC) (Primary Dx) 11/09/2021 Travel 11/09/2021 11:50 AM EST Office Visit [facility] [address] [place] [address] Malinda Patterson MD Type 2 diabetes mellitus with peripheral neuropathy (HCC) (Primary Dx); Atherosclerosis of aorta; Body mass index (BMI) 45.0-49.9, adult (HCC) 11/04/2021 Refill [facility] [address] [place] [address] Malinda Patterson MD Medication Refill 10/26/2021 11:45 AM EST Telemedicine [facility] [address] [place] [address] Mylene Dumont LPN Type 2 diabetes mellitus with peripheral neuropathy (HCC) (Primary Dx) 10/24/2021 Refill [facility] [address] [place] [address] Malinda Patterson MD Medication Refill 10/18/2021 Refill [facility] [address] [place] [address] Michaela Landon MD Medication Refill 10/13/2021 Refill [facility] [address] [place] [address] Malinda Patterson MD Medication Refill (gabapentin / aspirin ) 10/05/2021 Travel 10/05/2021 9:10 AM EST Office Visit [facility] [address] [place] [address] Malinda Patterson MD Hospital discharge follow-up (Primary Dx); Atherosclerosis of aorta; COVID-19 virus infection 10/01/2021 Refill [facility] [address] [place] [address] Malinda Patterson MD Medication Refill 09/28/2021 Patient Outreach [facility] [employer] [address] Appointment [place] [address] Yesi Aviles, HEATH Hospital Follow Up 09/24/2021 11:26 AM EST - 09/26/2021 12:06 PM EST Hospital Encounter [facility] [address] [place] [address] Latonya Washington MD Discharge Disposition: Home or Self Care 09/24/2021 Patient Outreach [facility] [address] [place] [address] Ahmet Dc LPN ED Follow-Up Call 09/24/2021 Travel 09/24/2021 2:19 AM EST - 09/24/2021 10:52 AM EST Emergency [facility] [place] [address] Golden Rodriguez MD Fry, Isaiah J, MD Acute respiratory failure with hypoxemia (HCC) (Primary Dx); Pneumonia due to COVID-19 virus; Type 2 diabetes mellitus with peripheral neuropathy (HCC); Morbid obesity with BMI of 50.0-59.9, adult (HCC) Discharge Disposition: Discharged/Transferre d [facility] w/planned [facility] IP ReAdmit 09/22/2021 Travel 09/22/2021 Patient Outreach [facility] [address] [place] [address] Marie Willis BS, COS ED Follow-Up Call 09/22/2021 1:30 PM EST - 09/22/2021 11:59 PM EST Hospital Encounter [facility] [address] [place], [place] [id number] COVID-19 (Primary Dx) Discharge Disposition: Home or Self Care 09/21/2021 Orders Only [place] [address] Vincent Cortés, PharmD COVID-19 09/21/2021 1:45 PM EST Telemedicine [facility] [facility] [place] [address] Michaela Landon MD COVID-19 virus infection (Primary Dx); SOB (shortness of breath); Heart failure (HCC); Postinfectious hypothyroidism 09/21/2021 Travel 09/21/2021 1:25 AM EST - 09/21/2021 3:39 AM EST Emergency [facility] [place] [address] Dc Sherman MD COVID-19 (Primary Dx); Viral syndrome; Generalized weakness Discharge Disposition: Home or Self Care 09/18/2021 Patient Outreach [facility] [address] [place] [address] Marie Willis BS, COS ED Follow-Up Call 09/17/2021 12:37 PM EST - 09/17/2021 6:03 PM EST Emergency [facility] [place], [place] [id number] Contreras Jones MD Vertigo (Primary Dx); Generalized weakness; Cough; Generalized body aches; Upper respiratory tract infection, unspecified type Discharge Disposition: Home or Self Care 09/01/2021 Patient Outreach [facility] [address] [place] [address] Mylene Dumont LPN CM- Telephonic Outreach; CM- Longitudinal Continued 08/31/2021 Telephone [facility] [address] [place] [address] Malinda Patterson MD Visit Follow Up (EYE EXAM); Follow-up (eye exam) 08/20/2021 Patient Outreach [facility] [address] [place] [address] Mylene Dumont LPN CM- Telephonic Outreach; CM- Longitudinal Continued 08/20/2021 Refill [facility] [address] [place] [address] Malinda Patterson MD Medication Refill 08/15/2021 [facility]ill [facility] [address] [place] [address] Malinda Patterson MD Medication Refill 08/08/2021 Refill [facility] [address] [place] [address] Malinda Patterson MD Medication Refill 07/24/2021 Refill [facility] [address] [place] [address] Malinda Patterson MD Medication Refill 07/21/2021 Patient Outreach [facility] [address] [place] [address] Mylene Dumont LPN CM- Telephonic Outreach; CM- Longitudinal Continued 06/24/2021 11:15 AM EDT Office Visit [facility] [address] [place] [address] Mylene Dumont LPN Type 2 diabetes mellitus with peripheral neuropathy (HCC) (Primary Dx) 06/24/2021 Travel 06/24/2021 Refill [facility] [address] [place] [address] Malinda Patterson MD Medication Refill 06/24/2021 10:30 AM EDT Office Visit [facility] [address] [place] [address] Malinda Patterson MD Type 2 diabetes mellitus with peripheral neuropathy (HCC) (Primary Dx); Noncompliance; Diabetic polyneuropathy associated with type 2 diabetes mellitus (HCC); Chronic bilateral low back pain without sciatica 06/21/2021 Refill [facility] [address] [place] [address] Malinda Patterson MD Medication Refill 06/17/2021 Refill [facility] [address] [place] [address] Malinda Patterson MD Medication Refill 06/09/2021 Refill [facility] [address] [place] [address] Malinda Patterson MD Medication Refill 05/26/2021 Refill [facility] [address] [place] [address] Malinda Patterson MD Medication Refill 05/22/2021 Telephone [facility] [address] [place] [address] Malinda Patterson MD Visit Follow Up (eye exam) 05/16/2021 Refill [facility] [address] [place] [address] Malinda Patterson MD Medication Refill 04/30/2021 Travel 04/30/2021 1:00 PM EDT Office Visit [facility] [address] [place] [address] King Joyce MD TIA (transient ischemic attack) (Primary Dx); Dyslipidemia; Morbid obesity with BMI of 50.0-59.9, adult (HCC) 04/22/2021 Refill [facility] [address] [place] [address] Malinda Patterson MD Medication Refill 04/19/2021 Refill [facility] [address] [place] [address] Malinda Patterson MD Medication Refill 04/15/2021 Refill [facility] [address] [place] [address] Malinda Patterson MD Medication Refill 04/10/2021 Refill [facility] [address] [place] [address] Malinda Patterson MD Medication Refill 04/08/2021 Patient Outreach [facility] [address] [place] [address] Lucia Dueñas, [facility] Medication Management (Clinical Type Caster: yarn spinner [phone]) 04/03/2021 Patient Outreach [facility] [address] [place] [address] Surekha Momin, yarn spinner Medication Management ([facility] Clinical Certified Pharmacy Technicians [facility] [phone]) 04/01/2021 Telephone [facility] [address] [place] [address] Malinda Patterson MD Other (Patient trying to reach Mylene for diabetic education on items she can eat and items she cannot. Please advise.); CM- Telephonic Outreach 04/01/2021 Refill [facility] [address] [place] [address] Malinda Patterson MD Medication Refill 03/31/2021 Telephone [facility] [address] [place] [address] Malinda Patterson MD Other (Refill Strips for testing) 03/30/2021 11:00 AM EDT Office Visit [facility] [address] [place] [address] Mylene Dumont, [employer] ADMINISTRATOR Type 2 diabetes mellitus with peripheral neuropathy (HCC) (Primary Dx) 03/30/2021 Patient Outreach [facility] [address] [place] [address] Yumiko Jara RN Hospital Follow Up; Hospital Follow Up 03/30/2021 Orders Only [facility] [place] [address] Jessica Vega, [facility] Medication management (Primary Dx) 03/30/2021 10:00 AM EDT Office Visit [facility] [address] [place] [address] Malinda Patterson MD Hospital discharge follow-up (Primary Dx); Type 2 diabetes mellitus with peripheral neuropathy (HCC); History of TIA (transient ischemic attack); Diabetic polyneuropathy associated with type 2 diabetes mellitus (HCC); Chronic bilateral low back pain without sciatica 03/29/2021 Travel 03/29/2021 Nurse Triage [facility] [address] [place] [address] Sherri Verma, HEATH 03/28/2021 Travel 03/26/2021 3:14 PM EDT - 03/28/2021 7:39 PM EDT Hospital Encounter [facility] [address] Starla Harris MD Martin, K. Andrew, MD TIA (transient ischemic attack) (Primary Dx); Type 2 diabetes mellitus with peripheral neuropathy (HCC); Diabetic polyneuropathy associated with type 2 diabetes mellitus (HCC); Chronic bilateral low back pain without sciatica Discharge Disposition: Home or Self Care 03/26/2021 Travel 03/24/2021 Refill [facility] [address] [place] [address] Malinda Patterson MD Medication Refill 03/15/2021 Refill [facility] [address] [place] [address] Malinda Patterson MD Medication Refill 03/10/2021 Refill [facility] [address] [place] [address] Malinda Patterson MD Medication Refill 03/06/2021 Refill [facility] [address] [place] [address] Malinda Patterson MD Medication Refill 03/03/2021 Travel 03/03/2021 10:50 AM EDT Office Visit [facility] [address] [place] [address] Malinda Patterson MD Medicare annual wellness visit, [...] [facility] [address] [place] [address] Malinda Patterson MD Medication Refill 02/19/2021 Refill [facility] [address] [place] [address] Malinda Patterson MD Medication Refill 02/04/2021 Telephone [facility] [address] [place] [address] Malinda Patterson MD Results (CT Scan) 02/03/2021 Travel 02/03/2021 1:10 PM EDT Telemedicine [facility] [address] [place] [address] Malinda Patterson MD Acute non-recurrent sinusitis, unspecified location (Primary Dx) 02/02/2021 Travel 01/30/2021 Travel 01/30/2021 Telephone [facility] [address] [place] [address] Malinda Patterson MD Symptom Call (Sinus Congestion/Allergies x3 days ) 01/07/2021 9:00 AM EST - 01/07/2021 11:59 PM EST Hospital Encounter [facility] [address] [place] [address] Angela Merida MD Incisional hernia, without obstruction or gangrene Discharge Disposition: Home or Self Care 01/02/2021 Travel 01/02/2021 9:00 AM EST Office Visit [facility] [address] [facility] [address] [place] [address] Angela Merida MD Incisional hernia, without obstruction or gangrene (Primary Dx) 01/01/2021 Telephone [facility] [address] [place] [address] Malinda Patterson MD Other (Hernia) 01/01/2021 12:45 PM EST - 01/01/2021 11:59 PM EST Hospital Encounter [facility] [address] [place] [address] Malinda Patterson MD Encounter for screening mammogram for malignant neoplasm of breast Discharge Disposition: Home or Self Care 01/01/2021 Travel 12/29/2020 Telephone [facility] [address] [place] [address] Malinda Patterson MD Visit Follow Up 12/25/2020 Refill [facility] [address] [place] [address] Malinda Patterson MD Medication Refill 12/22/2020 Refill [facility] [address] [place] [address] Malinda Patterson MD Medication Refill 12/14/2020 Refill [facility] [address] [place] [address] Malinda Patterson MD Medication Refill 12/09/2020 Telephone [facility] [address] [place] [address] Malinda Patterson MD Medication Refill 12/07/2020 Refill [facility] [address] [place] [address] Malinda Patterson MD Medication Refill 11/26/2020 Telephone [facility] [address] [place] [address] Malinda Patterson MD Non-scheduled Referral 11/24/2020 Telephone [facility] [address] [place] [address] Malinda Patterson MD Medication Refill 11/12/2020 Telephone [facility] [address] [place] [address] Malinda Patterson MD Symptom Call (burning while urinating) 11/12/2020 Telephone [facility] [address] [place] [address] Malinda Patterson MD Medication Management 11/12/2020 11:00 AM EST - 11/12/2020 11:59 PM EST Hospital Encounter [facility] [place] [address] [address] [facility] Postinfectious hypothyroidism; Hyperlipidemia LDL goal <100; Type 2 diabetes mellitus with peripheral neuropathy (HCC); Heart failure (HCC) Discharge Disposition: Home or Self Care 11/12/2020 Travel 11/12/2020 9:30 AM EST Office Visit [facility] [address] [place] [address] Malinda Patterson MD Type 2 diabetes mellitus with peripheral neuropathy (HCC) (Primary Dx); Postinfectious hypothyroidism; Gastroesophageal reflux disease with esophagitis without hemorrhage; Encounter for long-term (current) use of medications; SOB (shortness of breath); Dysuria; Hyperlipidemia LDL goal <100; Ventral hernia without obstruction or gangrene 11/05/2020 Travel 11/03/2020 Telephone [facility] [address] [place] [address] Malinda Patterson MD Urinary Tract Infection 11/03/2020 Travel 10/16/2020 Refill [facility] [address] [place] [address] Malinda Patterson MD Medication Refill 10/15/2020 Refill [facility] [address] [place] [address] Malinda Patterson MD Medication Refill 09/17/2020 3:50 PM EST Office Visit [facility] [address] [place] [address] Malinda Patterson MD Diabetic polyneuropathy associated with type 2 diabetes mellitus (HCC) (Primary Dx); Chronic bilateral low back pain without sciatica; Arthritis of knee; Gastroesophageal reflux disease with esophagitis without hemorrhage; Flu vaccine need 09/17/2020 Travel 07/22/2020 Telephone [facility] [address] [place] [address] Malinda Patterson MD Letter for School/Work 07/12/2020 Refill [facility] [address] [place] [address] Malinda Patterson MD Medication Refill 07/07/2020 Refill [facility] [address] [place] [address] Malinda Patterson MD Medication Refill 06/21/2020 Refill [facility] [address] [place] [address] Malinda Patterson MD Medication Refill 06/09/2020 Refill [facility] [address] [place] [address] Malinda Patterson MD Medication Refill 06/09/2020 Refill [facility] [address] [place] [address] Bernadette Rangel APRN Medication Refill 06/08/2020 Refill [facility] [address] [place] [address] Malinda Patterson MD Medication Refill 05/22/2020 Telephone [facility] [address] [place] [address] Malinda Patterson MD Visit Follow Up 05/10/2020 Refill [facility] [address] [place] [address] Malinda Patterson MD Medication Refill 04/30/2020 11:19 AM EDT - 04/30/2020 11:59 PM EDT Hospital Encounter [facility] [place] [address] [place] [address] [facility] Viral upper respiratory tract infection; Type 2 diabetes mellitus with peripheral neuropathy (HCC); Hyperlipidemia LDL goal <100; Postinfectious hypothyroidism Discharge Disposition: Home or Self Care 04/29/2020 2:24 PM EDT - 04/29/2020 11:59 PM EDT [facility] [place] [address] Left foot pain Discharge Disposition: Home or Self Care 04/29/2020 1:00 PM EDT Office Visit [facility] [address] [place] [address] Bernadette Rangel APRN Ventral hernia, recurrent (Primary Dx); Left foot pain; Type 2 diabetes mellitus with peripheral neuropathy (HCC); Morbid obesity with BMI of 50.0-59.9, adult (HCC); Postinfectious hypothyroidism; Hyperlipidemia LDL goal <100; Hepatitis B vaccination not up to date 04/29/2020 Travel 04/15/2020 1:20 PM EDT Office Visit [facility] [address] [place] [address] Malinda Patterson MD Abscess of abdominal wall 04/15/2020 Travel 03/08/2020 Refill [facility] [address] [place] [address] Malinda Patterson MD Medication Refill 03/03/2020 Refill [facility] [address] [place] [address] Malinda Patterson MD Medication Refill 02/25/2020 Refill [facility] [address] [place] [address] Malinda Patterson MD Medication Refill 01/23/2020 11:30 AM EDT Office Visit [facility] [address] [place] [address] Malinda Patterson MD Medicare annual wellness visit, initial (Primary Dx); Heart failure, unspecified HF chronicity, unspecified heart failure type (HCC); Type 2 diabetes mellitus with peripheral neuropathy (HCC); Atherosclerosis of aorta; Morbid obesity with BMI of 50.0-59.9, adult (HCC); Viral upper respiratory tract infection; Hyperlipidemia LDL goal <100; Postinfectious hypothyroidism 01/22/2020 Travel 01/10/2020 Refill [facility] [address] [place] [address] Malinda Patterson MD Medication Refill 12/18/2019 1:40 PM EST Office Visit [facility] [address] [place] [address] Malinda Patterson MD Strain of mid-back, initial encounter (Primary Dx); Gastroesophageal reflux disease with esophagitis; Dysuria 12/18/2019 Travel 11/26/2019 Refill [facility] [address] [place] [address] Malinda Patterson MD Medication Refill 10/18/2019 Orders Only [facility] [address] [place] [address] Adore Pruitt [place] UTI (urinary tract infection), uncomplicated (Primary Dx) 10/16/2019 Telephone [facility] [address] [place] [address] Malinda Patterson MD Other 10/16/2019 9:40 AM EST Office Visit [facility] [address] [place] [address] Malinda Patterson MD Pleuritic chest pain (Primary Dx); Mid back pain 09/28/2019 Refill [facility] [address] [place] [address] Malinda Patterson MD Medication Refill 09/18/2019 11:10 AM EST Office Visit [facility] [address] [place] [address] Malinda Patterson MD Chronic pain of left knee (Primary Dx); Type 2 diabetes mellitus with peripheral neuropathy (HCC); Scar pain 09/12/2019 Refill [facility] [address] [place] [address] Malinda Patterson MD Medication Refill 09/04/2019 11:30 AM EDT Office Visit [facility] [address] [place] [address] Malinda Ptaterson MD Chronic pain of left knee (Primary Dx) 09/03/2019 Telephone [facility] [address] [place] [address] Malinda Patterson MD Other 09/02/2019 Refill [facility] [address] [place] [address] Malinda Patterson MD Medication Refill 08/13/2019 10:15 AM EDT Clinical Support [facility] [address] [place] [address] Adore Pruitt [place] Flu vaccine need (Primary Dx) 08/12/2019 Refill [facility] [address] [place] [address] Malinda Patterson MD Medication Refill 07/17/2019 Refill [facility] [address] [place] [address] Malinda Patterson MD Medication Refill 05/31/2019 8:55 PM EDT - 05/31/2019 11:59 PM EDT Hospital Encounter [facility] [place] [address] High risk medications (not anticoagulants) long-term use Discharge Disposition: Home or Self Care 05/31/2019 11:00 AM EDT Office Visit [facility] [address] [place] [address] Malinda Patterson MD Type 2 diabetes mellitus with peripheral neuropathy (HCC) (Primary Dx); Hyperlipidemia LDL goal <100; Diabetic polyneuropathy associated with type 2 diabetes mellitus (HCC); Chronic bilateral low back pain without sciatica; Postinfectious hypothyroidism; Gastroesophageal reflux disease with esophagitis; Arthritis of knee; High risk medications (not anticoagulants) long-term use 05/29/2019 Refill [facility] [address] [place] [address] Malinda Patterson MD Medication Refill 05/29/2019 Refill [facility] [address] [place] [address] Malinda Patterson MD Medication Refill 05/28/2019 Refill [facility] [address] [place] [address] Malinda Patterson MD Medication Refill 05/28/2019 Refill [facility] [address] [place] [address] Malinda Patterson MD Medication Refill 03/09/2019 Refill [facility] [address] [place] [address] Malinda Patterson MD Medication Refill 03/02/2019 Refill [facility] [address] [place] [address] Malinda Patterson MD Medication Refill 02/26/2019 Refill [facility] [address] [place] [address] Malinda Patterson MD Medication Refill 02/26/2019 11:00 AM EDT Office Visit [facility] [address] [place] [address] Malinda Patterson MD Screening for cervical cancer (Primary Dx) 02/14/2019 12:30 PM EDT - 02/14/2019 11:59 PM EDT Hospital Encounter [facility] [place] [address] Malinda Patterson MD Encounter for screening mammogram for breast cancer Discharge Disposition: Home or Self Care 02/09/2019 Abstract [facility] [address] [place] [address] Diana Roberts RMVeena 02/08/2019 Telephone [facility] [address] [place] [address] Malinda Patterson MD Medication Refill 02/07/2019 11:17 AM EDT - 02/07/2019 11:59 PM EDT Hospital Encounter [facility] [place] [address] [place] [address] [facility] Type 2 diabetes mellitus with peripheral neuropathy (HCC); Hyperlipidemia LDL goal <100; Postinfectious hypothyroidism Discharge Disposition: Home or Self Care 02/07/2019 10:20 AM EDT Office Visit [facility] [address] [place] [address] Malinda Patterson MD Annual physical exam (Primary Dx); Type 2 diabetes mellitus without complication, unspecified whether terminal carman insulin use (HCC); Encounter for screening mammogram for breast cancer; Type 2 diabetes mellitus with peripheral neuropathy (HCC); Postinfectious hypothyroidism; Hyperlipidemia LDL goal <100; Encounter for gynecological examination without abnormal finding; Cervical cancer screening; Vaginal yeast infection 02/06/2019 Patient Outreach [facility] [address] [place] [address] Mylene Dumont LPN Care Management - Chart Review; ED Follow-Up Call 02/05/2019 4:07 PM EDT - 02/05/2019 6:38 PM EDT Emergency [facility] [address] [place], [place] [id number] Contreras Guevara MD Dizziness (Primary Dx); Peripheral positional vertigo, unspecified laterality Discharge Disposition: Home or Self Care 12/28/2018 Telephone [facility] [address] [place] [address] Malinda Patterson MD Medication Refill 12/28/2018 Refill [facility] [address] [place] [address] Malinda Patterson MD Medication Refill 12/28/2018 Orders Only [facility] [address] [place] [address] Malinda Patterson MD Postinfectious hypothyroidism; Hyperlipidemia LDL goal <100 12/28/2018 Orders Only [facility] [address] [place] [address] Swathi Hart RMA Hyperlipidemia LDL goal <100; Postinfectious hypothyroidism; Type 2 diabetes mellitus with peripheral neuropathy (HCC) 12/11/2018 1:40 PM EST Office Visit [facility] [address] [place] [address] Malinda Patterson MD Type 2 diabetes mellitus [...] [facility] [address] [place] [address] Malinda Patterson MD Medication Refill 11/23/2018 Refill [facility] [address] [place] [address] Malinda Patterosn MD Medication Refill 11/11/2018 Refill [facility] [address] [place] [address] Malinda Patterson MD Medication Refill 10/26/2018 11:30 AM EST Clinical Support [facility] [address] [place] [address] Swathi Hart, A Flu vaccine need (Primary Dx) 10/24/2018 Refill [facility] [address] [place] [address] Malinda Patterson MD Medication Refill 10/15/2018 Refill [facility] [address] [place] [address] Malinda Patterson MD Medication Refill 09/19/2018 Telephone [facility] [address] [place] [address] Malinda Patterson MD Other (eye exam) 09/18/2018 Refill [facility] [address] [place] [address] Malinda Patterson MD Medication Refill 08/18/2018 Refill [facility] [address] [place] [address] Malinda Patterson MD Medication Refill 08/02/2018 3:00 PM EDT - 08/02/2018 11:59 PM EDT Hospital Encounter [facility] [place] [address] Left foot pain Discharge Disposition: Home or Self Care 08/02/2018 2:10 PM EDT Office Visit [facility] [address] [place] [address] Malinda Patterson MD Left foot pain (Primary Dx); Atherosclerosis of abdominal aorta; Heart failure, unspecified heart failure chronicity, unspecified heart failure type; Diabetic polyneuropathy associated with type 2 diabetes mellitus (HCC); Chronic bilateral low back pain without sciatica 07/31/2018 Telephone [facility] [address] [place] [address] Malinda Patterson MD Medication Refill 07/30/2018 Refill [facility] [address] [place] [address] Malinda Patterson MD Medication Refill 07/21/2018 Refill [facility] [address] [place] [address] Malinda Patterson MD Medication Refill 07/04/2018 Refill [facility] [address] [place] [address] Malinda Patterson MD Medication Refill 06/19/2018 3:00 PM EDT Office Visit [facility] [address] [place] [address] Malinda Patterson MD Leg swelling (Primary Dx) 05/18/2018 Patient Outreach [facility] [address] [place] [address] Mylene Dumont LPN Care Transition ([facility]- monthly; final); Visit Follow Up (05/05/2018) 05/09/2018 Refill [facility] [address] [place] [address] Malinda Patterson MD Medication Refill 05/05/2018 10:50 AM EDT Office Visit [facility] [address] [place] [address] Malinda Patterson MD Sore on leg (Primary Dx); Insomnia, persistent; Strain of neck muscle, initial encounter 04/20/2018 10:53 AM EDT - 04/20/2018 11:59 PM EDT Hospital Encounter [facility] [place] [address] [place] [address] [facility] Type 2 diabetes mellitus with peripheral neuropathy (HCC); Postinfectious hypothyroidism Discharge Disposition: Home or Self Care 04/20/2018 10:10 AM EDT Office Visit [facility] [address] [place] [address] Malinda Patterson MD Type 2 diabetes mellitus with peripheral neuropathy (HCC) (Primary Dx); Diabetic polyneuropathy associated with type 2 diabetes mellitus (HCC); Chronic bilateral low back pain without sciatica; Postinfectious hypothyroidism; Morbid obesity with BMI of 45.0-49.9, adult (HCC) 04/12/2018 Refill [facility] [address] [place] [address] Malinda Patterson MD Medication Refill 04/10/2018 Patient Outreach [facility] [address] [place] [address] Mylene Dumont LPN Care Transition ([facility]- monthly) 03/21/2018 12:15 PM EDT Clinical Support [facility] [address] [place] [address] Dulce Maria Joshi, BRITTANY Need for Tdap vaccination (Primary Dx) 03/05/2018 Refill [facility] [address] [place] [address] Malinda Patterson MD Medication Refill 03/03/2018 Patient Outreach [facility] [address] [place] [address] Mylene Dumont LPN Care Transition ([facility]- monthly) 02/09/2018 Refill [facility] [address] [place] [address] Malinda Patterson MD Medication Refill 02/09/2018 Refill [facility] [address] [place] [address] Malinda Patterson MD Medication Refill 02/03/2018 Patient Outreach [facility] [address] [place] [address] Mylene Dumont LPN Care Transition ([facility]- bi-weekly) 01/19/2018 Patient Outreach [facility] [address] [place] [address] Mylene Dumont LPN Care Transition ([facility]- initial; 01/10/2018-8.0); Visit Follow Up (01/10/2018) 01/18/2018 1:40 PM EDT - 01/18/2018 11:59 PM EDT Hospital Encounter [facility] [place] [address] Malinda Patterson MD Encounter for screening mammogram for breast cancer Discharge Disposition: Home or Self Care 01/12/2018 Orders Only [facility] [address] [place] [address] Malinda Patterson MD Postinfectious hypothyroidism (Primary Dx) 01/12/2018 Orders Only [facility] [address] [place] [address] Malinda Patterson MD Type 2 diabetes mellitus with peripheral neuropathy (HCC) (Primary Dx) 01/10/2018 11:53 AM EST - 01/10/2018 11:59 PM EST Hospital Encounter [facility] [address] [place] [address] Click, [facility] Type 2 diabetes mellitus with peripheral neuropathy (HCC); Heart failure, unspecified heart failure chronicity, unspecified heart failure type (HCC); Other specified hypothyroidism; Hyperlipidemia LDL goal <100 Discharge Disposition: Home or Self Care 01/10/2018 10:50 AM EST Office Visit [facility] [address] [place] [address] Malinda Patterson MD Annual physical exam (Primary [...] [facility] [address] [place] [address] Malinda Patterson MD Medication Refill 12/20/2017 Refill [facility] [address] [place] [address] Malinda Patterson MD Medication Refill 12/12/2017 Refill [facility] [address] [place] [address] Malinda Patterson MD Medication Refill 11/20/2017 Refill [facility] [address] [place] [address] Malinda Patterson MD Medication Refill 11/11/2017 Refill [facility] [address] [place] [address] Malinda Patterson MD Medication Refill 11/08/2017 Refill [facility] [address] [place] [address] Malinda Patterson MD Medication Refill 11/03/2017 Refill [facility] [address] [place] [address] Malinda Patterson MD Medication Refill 10/11/2017 Refill [facility] [address] [place] [address] Malinda Patterson MD Medication Refill 10/09/2017 Refill [facility] [address] [place] [address] Malinda Patterson MD Medication Refill 08/13/2017 Refill [facility] [address] [place] [address] Malinda Patterson MD Medication Refill 07/16/2017 Refill [facility] [address] [place] [address] Yesenia, Malinda Enriquez MD Medication Refill 07/13/2017 Refill [facility] [address] [place] [address] Malinda Patterson MD Medication Refill 06/30/2017 Telephone [facility] [address] [place] [address] Malinda Patterson MD Other 06/28/2017 9:39 AM EDT - 06/28/2017 11:59 PM EDT Hospital Encounter [facility] [address] [place] [address] Click, [facility] Type 2 diabetes mellitus with peripheral neuropathy (HCC); Hyperlipidemia LDL goal <100; Other specified hypothyroidism Discharge Disposition: Home or Self Care 06/27/2017 1:45 PM EDT Office Visit [facility] [address] [place] [address] Malinda Patterson MD Hyperlipidemia LDL goal <100 (Primary Dx); Diabetic polyneuropathy associated with type 2 diabetes mellitus (HCC); Chronic bilateral low back pain without sciatica; Other specified hypothyroidism; Type 2 diabetes mellitus with peripheral neuropathy (HCC) 06/15/2017 Refill [facility] [address] [place] [address] Malinda Patterson MD Medication Refill 05/16/2017 Refill [facility] [address] [place] [address] Malinda Patterson MD Medication Refill 04/17/2017 Refill [facility] [address] [place] [address] Yesenia, Malinda Enriquez MD Medication Refill 04/10/2017 Refill [facility] [address] [place] [address] Yesenia, Malinda Enriqeuz MD Medication Refill 03/22/2017 Refill [facility] [address] [place] [address] Yesenia, Malinda Enriquez MD Medication Refill 03/21/2017 Refill [facility] [address] [place] [address] Yesenia, Malinda Enriquez MD Medication Refill 03/12/2017 Refill [facility] [address] [place] [address] Yesenia, Malinda Enriquez MD Medication Refill 02/08/2017 Refill [facility] [address] [place] [address] Yesenia, Malinda Enriquez MD Medication Refill 01/18/2017 Orders Only [facility] Inbound [address] [place] [address] Malgorzata Hunt MD 01/18/2017 Orders Only [facility] In[facility] [address] [place] [address] Malgorzata Hunt MD 01/09/2017 Refill [facility] [address] [place] [address] Malinda Patterson MD Medication Refill 12/27/2016 Refill [facility] [address] [place] [address] Malinda Patterson MD Medication Refill 11/26/2016 Orders Only [facility] [address] [place] [address] Swathi Hart RMVeena Other specified hypothyroidism (Primary Dx); Type 2 diabetes mellitus with peripheral neuropathy (HCC); Hyperlipidemia LDL goal <100 11/10/2016 11:28 AM EST - 11/10/2016 11:59 PM EST Hospital Encounter [facility] [address] [place], [place] [address] Click, [facility] Other specified hypothyroidism; Hyperlipidemia LDL goal <100; Type 2 diabetes mellitus with peripheral neuropathy (HCC); Heart failure, unspecified heart failure chronicity, unspecified heart failure type Discharge Disposition: Home or Self Care 11/10/2016 10:45 AM EST Office Visit [facility] [address] [place] [address] Malinda Patterson MD Flu vaccine need (Primary [...] [facility] [address] [place] [address] Malinda Patterson MD Medication Refill 11/01/2016 Refill [facility] [address] [place] [address] Malinda Patterson MD Medication Refill 10/18/2016 Refill [facility] [address] [place] [address] Malinda Patterson MD Medication Refill 10/04/2016 Refill [facility] [address] [place] [address] Malinda Patterson MD Medication Refill 10/01/2016 11:06 AM EST - 10/01/2016 11:59 PM EST Hospital Encounter [facility] [place] [address] Malinda Patterson MD Visit for screening mammogram Discharge Disposition: Home or Self Care 09/15/2016 Refill [facility] [address] [place] [address] Malinda Patterson MD Medication Refill 09/07/2016 Telephone [facility] [address] [place] [address] Yesenia, Malinda Enriquez MD Paperwork/forms 2016 Refill [facility] [address] [place] [address] Malinda Patterson MD Medication Refill 09/04/2016 Refill [facility] [address] [place] [address] Malinda Patterson MD Medication Refill 08/02/2016 Refill [facility] [address] [place] [address] Malinda Patterson MD Medication Refill 07/21/2016 Refill [facility] [address] [place] [address] Malinda Patterson MD Medication Refill 07/04/2016 Refill [facility] [address] [place] [address] Malinda Patterson MD Medication Refill 06/18/2016 Refill [facility] [address] [place] [address] Malinda Patterson MD Medication Refill 05/20/2016 Refill [facility] [address] [place] [address] Malinda Patterson MD Medication Refill 05/18/2016 Refill [facility] [address] [place] [address] Malinda Patterson MD Medication Refill 05/12/2016 Refill [facility] [address] [place] [address] Malinda Patterson MD Medication Refill 04/23/2016 Refill [facility] [address] [place] [address] Malinda Patterson MD Medication Refill 04/04/2016 Refill [facility] [address] [place] [address] Malinda Patterson MD Medication Refill 03/22/2016 Orders Only [facility] [address] [place] [address] Fredrick Owens RN Other specified hypothyroidism (Primary Dx) 03/22/2016 Telephone [facility] [address] [place] [address] Malinda Patterson MD Other 03/21/2016 Refill [facility] [address] [place] [address] Malinda Patterson MD Medication Refill 03/17/2016 Orders Only [facility] [address] [place] [address] Malinda Patterson MD Hypothyroidism (acquired) (Primary Dx) 03/17/2016 11:58 AM EDT - 03/17/2016 11:59 PM EDT Hospital Encounter [facility] [place] [address] [place] [address] Type 2 diabetes mellitus with peripheral neuropathy (HCC); Hyperlipidemia LDL goal <100; Other specified hypothyroidism Discharge Disposition: Home or Self Care 03/17/2016 11:00 AM EDT Office Visit [facility] [address] [place] [address] Malinda Patterson MD Dyslipidemia (Primary Dx); Hyperlipidemia LDL goal <100; Other specified hypothyroidism; Morbid obesity with BMI of 45.0-49.9, adult (HCC); Type 2 diabetes mellitus with peripheral neuropathy (HCC) 03/04/2016 Refill [facility] [address] [place] [address] Malinda Patterson MD Medication Refill 01/19/2016 Refill [facility] [address] [place] [address] Malinda Patterson MD Medication Refill 01/17/2016 Refill [facility] [address] [place] [address] Malinda Patterson MD Medication Refill 01/06/2016 Refill [facility] [address] [place] [address] Malinda Patterson MD Medication Refill 12/21/2015 Refill [facility] [address] [place] [address] Yesenia, Malinda Enriquez MD Medication Refill 12/08/2015 Refill [facility] [address] [place] [address] Malinda Patterson MD Medication Refill 12/02/2015 Refill [facility] [address] [place] [address] Malinda Patterson MD Medication Refill 11/16/2015 Refill [facility] [address] [place] [address] Malinda Patterson MD Medication Refill 11/13/2015 11:00 AM EST Office Visit [facility] [address] [place] [address] Malinda Patterson MD Other specified hypothyroidism (Primary Dx); Hyperlipidemia LDL goal <100; Diabetic polyneuropathy associated with type 2 diabetes mellitus (HCC); Type 2 diabetes mellitus with peripheral neuropathy (HCC) 11/03/2015 Refill [facility] [address] [place] [address] Malinda Patterson MD Medication Refill 10/20/2015 Refill [facility] [address] [place] [address] Malinda Patterson MD Medication Refill 09/25/2015 Refill [facility] [address] [place] [address] Malinda Patterson MD Medication Refill 09/12/2015 12:19 PM EST - 09/12/2015 11:59 PM EST Hospital Encounter [facility] [place] [address] [place] [address] Post-menopausal; Leukocytosis; Other fatigue Discharge Disposition: Home or Self Care 09/12/2015 11:00 AM EST Office Visit [facility] [address] [place] [address] Malinda Patterson MD Type 2 diabetes mellitus with neurological manifestations, uncontrolled (HCC) (Primary Dx); Dyslipidemia; Post-menopausal; Hyperlipidemia LDL goal <100; SOB (shortness of breath) 09/03/2015 9:40 AM EDT Office Visit [facility] [address] [place] [address] [place] [phone] MD Surgery follow-up (Primary Dx) 08/20/2015 Refill [facility] [address] [place] [address] Malinda Patterson MD Medication Refill 08/19/2015 Orders Only [facility] [address] [place] [address] Fredrick Owens RN Leukocytosis (Primary Dx); Other fatigue 08/13/2015 9:47 PM EDT - 08/13/2015 11:59 PM EDT Hospital Encounter [facility] [place] [address] Post-operative nausea and vomiting Discharge Disposition: Home or Self Care 08/13/2015 3:45 PM EDT Office Visit [facility] [address] [place] [address] Malinda Patterson MD Flu vaccine need (Primary Dx); Post-operative nausea and vomiting 08/13/2015 9:40 AM EDT Office Visit [facility] [address] [place] [address] MD Surgery follow-up (Primary Dx) 08/12/2015 Patient Outreach [facility] [address] [facility] [place] [address] Malinda Patterson MD ED Follow-Up Call 08/11/2015 7:08 PM EDT - 08/11/2015 8:36 PM EDT Emergency [facility] [place] [address] Urbano Stanford MD Nausea (Primary Dx) Discharge Disposition: Home or Self Care 07/31/2015 10:15 AM EDT - 08/02/2015 11:02 AM EDT Hospital Encounter [facility] 3C PULMONARY [facility] [place] [address] MD Pre-operative respiratory examination (Primary Dx); Ventral hernia, recurrent Discharge Disposition: Home or Self Care 07/31/2015 12:00 PM EDT - 07/31/2015 1:00 PM EDT Surgery EDG [facility] [place] [address] MD VENTRAL/EPIGASTRIC OR INCISIONAL HERNIA REPAIR WITH MESH 07/31/2015 11:18 AM EDT Anesthesia Event EDG [facility] [place] [address] Jhon Wagner, Adore Jimenez, MYRA 07/24/2015 9:44 AM EDT - 07/24/2015 11:59 PM EDT Hospital Encounter [facility] PRE-ADMIT TESTING [facility] [place] [address] Pre-operative respiratory examination (Primary Dx); Ventral hernia, recurrent Discharge Disposition: Home or Self Care 07/21/2015 11:00 AM EDT Office Visit [facility] [address] [place] [address] Bernadette Rangel, DEMAND PLANNING ANALYST Asthmatic bronchitis, mild intermittent, with acute exacerbation (Primary Dx); Diabetic polyneuropathy associated with type 2 diabetes mellitus (HCC); Polyneuropathy 07/16/2015 Telephone [facility] [address] [facility] [address] [place] [address] Cristin Stevens [facility] Surgery; Visit Follow Up 07/11/2015 10:20 AM EDT Office Visit [facility] [address] [facility] [address] [place] [address] MD Recurrent ventral hernia (Primary Dx) 07/09/2015 Refill [facility] [address] [place] [address] Malinda Patterson MD Results 07/08/2015 10:56 AM EDT - 07/08/2015 11:59 PM EDT Hospital Encounter [facility] [place] [address] [place] [address] Diaphoresis Discharge Disposition: Home or Self Care 07/08/2015 10:00 AM EDT Office Visit [facility] [address] [place] [address] Malinda Patterson MD Type 2 diabetes mellitus with neurological manifestations, uncontrolled (HCC) (Primary Dx); Medication intolerance; Nausea; Other specified hypothyroidism; Diaphoresis 07/04/2015 Patient Outreach [facility] [address] [place] [address] Malinda Patterson MD ED Follow-Up Call 07/03/2015 7:30 PM EDT - 07/03/2015 10:14 PM EDT Emergency [facility] [place] [address] Dc Sherman MD Abdominal pain, right upper quadrant (Primary Dx) Discharge Disposition: Home or Self Care 07/03/2015 6:30 PM EDT Office Visit [facility] [address] [phone] Doc Gaston MD Dizziness (Primary Dx); Right upper quadrant pain; Nausea 07/03/2015 Refill [facility] [address] [place] [address] Malinda Patterson MD Medication Refill 06/21/2015 Refill [facility] [address] [place] [address] Malinda Patterson MD Medication Refill 06/17/2015 Telephone [facility] [address] [place] [address] Malinda Patterson MD Medication Refill 06/13/2015 Telephone [facility] [address] [place] [address] Malinda Patterson MD Other 06/12/2015 11:00 AM EDT Office Visit [facility] [address] [place] [address] Malinda Patterson MD Type 2 diabetes mellitus with neurological manifestations, uncontrolled (HCC) (Primary Dx); Ventral hernia, recurrent; Diabetic polyneuropathy associated with type 2 diabetes mellitus (HCC); Morbid obesity with BMI of 50.0-59.9, adult (HCC); Other specified hypothyroidism; Hyperlipidemia LDL goal <100 05/26/2015 Refill [facility] [address] [place] [address] Malinda Patterson MD Medication Refill 05/15/2015 9:23 PM EDT - 05/15/2015 11:59 PM EDT Hospital Encounter [facility] [place] [address] Routine gynecological examination; Special screening examination for human papillomavirus (HPV) Discharge Disposition: Home or Self Care 05/15/2015 11:00 AM EDT Office Visit [facility] [address] [place] [address] Malinda Patterson MD Special screening examination for human papillomavirus (HPV) (Primary Dx); Routine gynecological examination; Vaginal yeast infection 05/07/2015 3:35 PM EDT - 05/07/2015 11:59 PM EDT Hospital Encounter [facility] [place] [address] Malinda Patterson MD Other screening mammogram Discharge Disposition: Home or Self Care 04/28/2015 Telephone [facility] [address] [place] [address] Malinda Patterson MD Medication Refill 04/28/2015 Refill [facility] [address] [place] [address] Malinda Patterson MD Medication Refill 04/23/2015 11:56 AM EDT - 04/23/2015 11:59 PM EDT Hospital Encounter [facility] [place] [address] [place] [address] Other specified hypothyroidism Discharge Disposition: Home or Self Care 04/23/2015 11:00 AM EDT Office Visit [facility] [address] [place] [address] Malinda Patterson MD Hyperlipidemia LDL goal <100 (Primary Dx); Other specified hypothyroidism; Morbid obesity with BMI of 50.0-59.9, adult (HCC); Breast cancer screening; Type 2 diabetes mellitus with neurological manifestations, uncontrolled (HCC); Diabetic polyneuropathy associated with type 2 diabetes mellitus (HCC) 03/17/2015 12:20 PM EDT - 03/17/2015 11:59 PM EDT Hospital Encounter [facility] [place] [address] [place] [address] DM (diabetes mellitus) (HCC); Hyperlipidemia LDL goal <100; Hypothyroidism Discharge Disposition: Home or Self Care 03/12/2015 11:00 AM EDT Office Visit [facility] [address] [place] [address] Malinda Patterson MD Neuropathy (Primary Dx); Dyslipidemia; DM (diabetes mellitus) (HCC); Hyperlipidemia LDL goal <100; Hypothyroidism; GERD (gastroesophageal reflux disease); Abdominal pain, other specified site 02/11/2015 Refill [facility] [address] [place] [address] Malinda Patterson MD Medication Refill 01/14/2015 Refill [facility] [address] [place] [address] Malinda Patterson MD Medication Refill 12/27/2014 Telephone [facility] [address] [place] [address] Malinda Patterson MD 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[employer]) 12/09/2014 11:30 AM EST Office Visit [facility] [address] [place] [address] Bernadette Rangel APRN Encounter for diabetes education (HCC) (Primary Dx); Injection education, encounter for 12/09/2014 10:15 AM EST Office Visit [facility] [address] [place] [address] Malinda Patterson MD Frequent urination (Primary Dx); Neuropathy; Hyperlipidemia LDL goal <100; Hypothyroid; Dyslipidemia; DM (diabetes mellitus) (HCC) 12/05/2014 Telephone [facility] [address] [place] [address] Malinda Patterson MD Other 12/02/2014 12:02 PM EST - 12/02/2014 11:59 PM EST Hospital Encounter [facility] [place] [address] [place] [address] DM (diabetes mellitus) (HCC); Hypothyroidism; Dyslipidemia Discharge Disposition: Home or Self Care 12/02/2014 11:15 AM EST Office Visit [facility] [address] [place] [address] Malinda Patterson MD Bladder infection (Primary Dx); DM (diabetes mellitus) (HCC); Vaginal irritation; Hypothyroidism 11/04/2014 Refill [facility] [address] [place] [address] Bernadette Rangel APRN Medication Refill 10/28/2014 Refill [facility] [address] [place] [address] Malinda Patterson MD Medication Refill 10/09/2014 Abstract [facility] [address] [place] [address] Malinda Patterson MD 09/23/2014 Telephone [facility] [address] [place] [address] Malinda Patterson MD Other 09/20/2014 1:00 PM EST Office Visit [facility] [address] [place] [address] Malinda Patterson MD UTI (urinary tract infection) (Primary Dx); Yeast infection; Lumbar disc disease 09/12/2014 9:15 AM EST Office Visit [facility] [address] [place] [address] Malinda Patterson MD DM (diabetes mellitus) (HCC) (Primary Dx); Chest pain; Hyperlipidemia LDL goal <100; Hypothyroidism; Heart failure, chronic, systolic 09/10/2014 Telephone [facility] [address] [place] [address] Malinda Patterson MD Results 2014 Orders Only [facility] [address] [place] [address] Swathi Hart RMA DM (diabetes mellitus) (HCC) (Primary Dx) 09/03/2014 Telephone [facility] [address] [place] [address] Malinda Patterson MD Other 09/02/2014 Telephone [facility] [address] [place] [address] Malinda Patterson MD Medication Problem 09/02/2014 1:16 PM EDT - 09/02/2014 11:59 PM EDT Hospital Encounter [facility] [place] [address] [place] [address] DM (diabetes mellitus) (HCC) (Primary Dx); Dyslipidemia; Hypothyroid Discharge Disposition: Home or Self Care 09/02/2014 8:45 AM EDT Office Visit [facility] [address] [place] [address] Malinda Patterson MD DM (diabetes mellitus) (HCC) (Primary Dx); Dyslipidemia; Morbid obesity (HCC); Hypothyroid; Chronic knee pain, unspecified laterality; Herniated disc; Neuropathy; Breast cancer screening; Flu vaccine need 06/04/2014 4:18 AM EDT - 06/04/2014 5:16 AM EDT Emergency [facility] [place] [address] Francis Shine MD Otitis externa, right (Primary Dx); Otitis media, right Discharge Disposition: Home or Self Care 04/21/2014 1:45 PM EDT Office Visit [facility] [address] [address] Yuli Sanders DO Hand strain, right, initial encounter (Primary Dx); Right hand pain 04/20/2014 12:37 AM EDT - 04/20/2014 1:38 AM EDT Emergency [facility] [place] [address] Soheila Tirado MD Wrist pain, right (Primary Dx); Hand pain, right; History of carpal tunnel syndrome Discharge Disposition: Home or Self Care 02/28/2014 Refill [facility] [address] [address] Saumya Rodrigues MD Medication Refill 02/08/2014 6:30 PM EDT Office Visit [facility] [address] [address] Saumya Rodrigues MD Infected wound, initial encounter (HCC) (Primary Dx) 01/10/2014 4:38 PM EST - 01/10/2014 5:55 PM [facility] [place] [address] Sarkis Hogue MD Colicky abdominal pain (Primary Dx) Discharge Disposition: Home or Self Care 12/19/2013 1:55 PM EST - 12/19/2013 5:56 PM EST Emergency [facility] [place] [address] Stephen Earl DO Abdominal pain (Primary Dx); History of umbilical hernia repair; Dysfunctional uterine bleeding Discharge Disposition: Home or Self Care 12/04/2013 Telephone [facility] [address] [place] [address] King Joyce MD Appointment Needed 11/28/2013 Orders Only [facility] [address] [facility] [address] [place] [address] Margiearvalho-Bornveronica rst, Janae, RMA Ventral hernia, recurrent (Primary Dx) 11/28/2013 2:00 PM EST Office Visit [facility] [address] [address] Francis Tejeda MD Ventral hernia, recurrent (Primary Dx); Obesity; DM (diabetes mellitus) (HCC) 11/16/2013 2:30 PM EST - 11/16/2013 11:59 PM EST Hospital Encounter [facility] [address] [place] [address] Contreras Casper MD Back pain Discharge Disposition: Home or Self Care 11/14/2013 Telephone [facility] [address] [facility] [address] [place] [address] Lia Bailey RMA Medication Refill (Pt requesting something for pain) 10/22/2013 7:31 AM EST - 10/22/2013 10:25 AM EST Hospital Encounter [facility] SAME DAY SURGERY [facility] [place] [address] Francis Tejeda MD Discharge Disposition: Home or Self Care 10/19/2013 7:45 AM EST - 10/19/2013 11:59 PM EST Hospital Encounter [facility] PRE-ADMIT TESTING [facility] [place] [address] Discharge Disposition: Home or Self Care 10/17/2013 2:00 PM EST Office Visit [facility] [address] [facility] [address] [place] [address] Francis Tejeda MD Ventral hernia, recurrent (Primary Dx); Obesity 10/07/2013 11:30 PM EST - 10/08/2013 1:49 AM EST Emergency [facility] [place] [address] Soheila Tirado MD Ventral hernia (Primary Dx) Discharge Disposition: Home or Self Care 04/17/2013 11:00 AM EDT - 04/17/2013 11:59 PM EDT Hospital Encounter [facility] [place] [address] Contreras Casper MD Discharge Disposition: Home or Self Care 04/16/2013 8:30 AM EDT - 04/16/2013 8:59 AM EDT Hospital Encounter [facility] [place] [address] Contreras Casper MD Chest pain; Unspecified essential hypertension; Other and unspecified hyperlipidemia; Type II or unspecified type diabetes mellitus without mention of complication, not stated as uncontrolled (HCC) Discharge Disposition: Home or Self Care 04/16/2013 9:00 AM EDT - 04/16/2013 11:59 PM EDT Hospital Encounter [facility]G [facility] [place] [address] Contreras Casper MD Chest pain; Unspecified essential hypertension; Other and unspecified hyperlipidemia; Type II or unspecified type diabetes mellitus without mention of complication, not stated as uncontrolled (HCC) Discharge Disposition: Home or Self Care 03/26/2013 1:58 PM EDT - 03/26/2013 11:59 PM EDT Hospital Encounter [facility]G D-WING XRAY [facility] [place] [address] Pain Discharge Disposition: Home or Self Care 01/17/2013 4:06 PM EDT - 01/17/2013 7:23 PM EDT Emergency [facility] [place] [address] Clif Hu MD Acute bronchitis (Primary Dx); Asthma exacerbation; Vomiting and diarrhea Discharge Disposition: Home or Self Care 12/09/2012 5:55 PM EST - 12/09/2012 7:17 PM EST Emergency [facility] [place] [address] Earnestine Marks MD Ankle sprain (Primary Dx) Discharge Disposition: Home or Self Care 11/15/2012 5:21 PM EST - 11/15/2012 7:18 PM EST Emergency [facility] [place] [address] Shauna Ford MD Abnormal vaginal bleeding (Primary Dx) Discharge Disposition: Home or Self Care 11/06/2012 8:58 PM EST - 11/06/2012 10:57 PM EST Emergency [facility] [address] [facility] Urbano Stanford MD URI (upper respiratory infection) (Primary Dx) Discharge Disposition: Home or Self Care 10/10/2012 12:39 PM EST - 10/10/2012 11:59 PM EST Hospital Encounter [facility] [place] [address] Pelvic pain; Vaginal bleeding Discharge Disposition: Home or Self Care 09/20/2012 9:58 PM EST - 09/20/2012 11:30 PM EST Emergency [facility] [address] [facility] Stephen Earl DO Pelvic pain; Vaginal bleeding Discharge Disposition: Home or Self Care 04/27/2012 10:22 AM EDT - 04/27/2012 11:59 PM EDT Hospital Encounter [facility] LABORATORY [facility] [place] [address] DM (diabetes mellitus) (HCC) Discharge Disposition: Home or Self Care 03/21/2012 11:57 AM EDT - 03/21/2012 12:50 PM EDT Emergency [facility] [place] [address] Michael Gutiérrez MD Right hip pain; Bursitis Discharge Disposition: Home or Self Care 02/29/2012 11:00 AM EDT Office Visit SEP H&V [facility] [address] [place] [address] King Joyce MD Chest pain; DM (diabetes mellitus) (HCC); Obesity; Dyslipidemia 02/24/2012 Abstract SEP H&V [facility] [address] [place] [address] King Joyce MD 11/11/2011 Refill SEP H&V [facility] [address] [place] [address] King Joyce MD Medication Refill 11/10/2011 Refill SEP H&V [facility] [address] [place] [address] King Joyce MD Medication Refill 10/11/2011 1:30 PM EST - 10/11/2011 11:59 PM EST Hospital Encounter EDG D-WING XRAY [facility] [place] [address] Pain Discharge Disposition: Home or Self Care 09/20/2011 11:17 AM EST - 09/20/2011 11:59 PM EST Hospital Encounter [facility] [address] [place] [address] Beau Paz MD Leiomyoma of uterus, unspecified Discharge Disposition: Home or Self Care 08/26/2011 7:02 PM EDT - 08/28/2011 2:02 PM EDT Hospital Encounter EDG 6D TCU [facility] [place] [address] Ita Dwyer MD Ernst-Pierson, Jennifer M, MD Minzner, Jon R, MD Chest pain; Lightheadedness; Diabetes mellitus (HCC); Hyperlipidemia; Hypothyroid; Nausea; Morbid obesity (HCC); CAD (coronary artery disease) Discharge Disposition: Home or Self Care 08/02/2011 10:29 AM EDT - 08/02/2011 11:59 PM EDT Hospital Encounter [facility] [address] [place] [address] Jaquelin Bal MD Chest pressure; Abdominal pain, other specified site Discharge Disposition: Home or Self Care 07/28/2011 11:17 PM EDT - 07/31/2011 9:30 PM EDT Hospital Encounter [facility] TCU [address]A [facility] [place] [address] Dc Sherman MD Pilger, Jeffrey M, MD Bankers, Bradley J, MD Dyspnea; Diaphoresis; Chest pain; Diabetes; Chest pressure; Abdominal pain, other specified site Discharge Disposition: Home or Self Care 06/14/2011 9:16 AM EDT - 06/15/2011 12:47 PM EDT Hospital Encounter [place] [address] [address] Beau Paz MD Fibroid, uterine Discharge Disposition: Home or Self Care 06/11/2011 1:15 PM EDT - 06/11/2011 11:59 PM EDT Hospital Encounter [facility] LABORAT[facility] [address] [place] [address] Uterine fibroid Discharge Disposition: Home or Self Care 05/31/2011 1:22 PM EDT - 05/31/2011 2:27 PM EDT Emergency [facility] [address] [place] [address] Shauna Ford MD Abdominal pain, other specified site; Uterine fibroid; Constipation Discharge Disposition: Home or Self Care 04/20/2011 2:30 PM EDT - 04/20/2011 11:59 PM EDT Hospital Encounter [facility] [address] [place] [address] Beau Paz MD Pelvic pain in female; Fibroids Discharge Disposition: Home or Self Care 04/20/2011 1:43 PM EDT - 04/20/2011 2:29 PM EDT Hospital Encounter [facility] [address] [place] [address] Provider, Not In Epic Other screening mammogram Discharge Disposition: Home or Self Care 03/09/2011 12:19 AM EDT - 03/12/2011 11:07 AM EDT Hospital Encounter EDG 2AO ONCOLOGY [facility] [address] [place] [address] Soheila Tirado MD Jibrini, Andreea Perkins MD Pyelonephritis; Unspecified essential hypertension; DM w/o complication type II (HCC) Discharge Disposition: Home or Self Care 06/04/2010 2:35 PM EDT - 06/04/2010 3:48 PM EDT Emergency HST E/D BLUE [facility] Emergency Ita Martinez DO 06/01/2010 8:27 AM [...] 04/22/2010 5:48 PM EDT Emergency HST E/D RED [facility] Emergency Ita Dwyer MD 04/20/2010 5:00 PM EDT - 04/21/2010 3:25 PM EDT Hospital Encounter HST 2B2 Francis Tejeda MD 03/31/2010 11:33 AM EDT - 03/31/2010 2:16 PM EDT Emergency HST E/D RED [facility] Emergency Doc Jay MD 03/19/2010 12:01 AM [...] PM EST Hospital Encounter HST 2C [facility] Emergency Andreea Robertson MD 10/30/2009 7:54 PM EST - 10/31/2009 12:54 AM EST Emergency HST EPIC CON UNK [facility]G [facility], [facility] Emergency Cristian Leigh MD 10/21/2009 12:01 AM EST - 10/21/2009 11:59 PM EST Hospital Encounter HST EPIC CON UNK EDG Matthew Varner MD 08/29/2009 9:54 AM EDT - 08/29/2009 11:59 PM EDT Hospital Encounter HST EPIC CON UNK EDG Matthew Varner MD 08/22/2009 9:57 AM EDT - [...] HST EPIC CON UNK EDG Brandon Allen Nathanael 06/20/2009 - 06/20/2009 11:59 PM EDT Hospital [...] 05/13/2008 4:38 PM EDT Emergency HST E/D RED EDG Sven Miller MD 08/12/2007 7:02 PM [...] Hospital Encounter HST EPIC CON UNK EDG [facility] 05/20/1998 12:01 PM EDT - 06/24/1998 [facility]/17[facility] 12:37 AM EDT - 05/18/1998 2:40 PM EDT Hospital Encounter HST 1C ElishaSiddhartha 05/14/1998 7:16 PM EDT - 05/14/1998 11:59 PM EDT Hospital Encounter HST LAB EDG ElishaSiddhartha 05/13/1998 1:08 AM EDT - 05/13/1998 2:51 AM EDT Hospital Encounter HST 1C ElishaSiddhartha 05/01/1998 12:58 PM EDT - 05/01/1998 11:59 PM EDT Hospital Encounter HST LAB EDG Alexandro Candelario Veena 04/02/1998 10:36 AM EDT - 04/02/1998 11:59 [...] HST EPIC CON UNK EDG Siddhartha Tello 11/28/1996 7:18 PM EST - 11/28/1996 11:59 PM EST Hospital Encounter HST EPIC CON UNK EDG Siddhartha Tello 11/20/1996 8:52 PM EST - 11/21/1996 1:42 PM EST Hospital Encounter HST 1C Siddhartha Tello 11/03/1996 6:25 PM EST - 11/03/1996 8:50 PM EST Hospital Encounter HST EPIC CON UNK EDG Siddhartha Tello 09/26/1996 1:25 PM EST - 09/26/1996 11:59 PM EST Hospital Encounter HST EPIC CON UNK JITENDRAG [facility] 09/24/1996 9:34 PM EST - 09/24/1996 9:50 PM EST Hospital Encounter HST EPIC CON UNK EDG Elisha Siddhartha Alcantara 09/09/1996 12:46 AM EST - 09/09/1996 1:50 AM EST Hospital Encounter HST EPIC CON UNK EDG Elisha Siddhartha [place] 08/21/1996 11:16 AM EDT - 08/21/1996 11:59 PM EDT Hospital Encounter HST EPIC CON UNK EDG Vinicio Woodruff MD 07/31/1996 1:38 AM EDT - 07/31/1996 11:59 PM EDT Emergency HST EPIC CON UNK VIDA Iron Graham MD 07/17/1996 8:44 AM EDT - 07/17/1996 11:59 PM EDT Hospital Encounter HST EPIC CON UNK JITENDRAG Elisha Siddhartha [place] 07/13/1996 9:30 AM EDT - 07/13/1996 11:59 PM EDT Hospital Encounter HST EPIC CON UNK HOMERO Tello Siddhartha [place] 06/09/1995 12:49 AM EDT - 06/09/1995 11:59 PM EDT Emergency HST EPIC CON UNK VIDA Francis Toledo MD 03/30/1995 1:59 PM EDT - 03/30/1995 11:59 PM EDT Emergency HST EPIC CON UNK Johnny Horvath MD 02/23/1994 6:55 PM EDT - 02/23/1994 11:59 PM EDT Emergency HST EPIC CON LAUREANOK HOMERO Johnny Stone MD Allergies Active Allergy Reactions Criticality Noted [...] 3 mL 11 08/22/20 24 Active Insulin [place], Disposable, (BD BRIDGET 2ND GEN PEN NEEDLE) 32 gauge x 5/32 [facility] NeedleIndications: Type 2 diabetes mellitus with hyperglycemia, with long-term current use of insulin ([facility]) Use as directed to inject under the [...] MOUTH DAILY 30 Tablet 06/04/20 25 Active Blood Sugar Diagnostic (ONETOUCH VERIO TEST STRIPS) [facility] StripIndications:T ype 2 diabetes mellitus with peripheral neuropathy (HCC) 1 Strip by Other route 3 times daily. 100 Strip 06/04/20 25 Active Blood-Glucose Meter [facility] KitIndications:Typ e 2 diabetes mellitus with peripheral [...] x 5/16 Misc Syringe 1 Each by Misc.(Non-Drug; Combo Route) route 3 times daily. 100 [...] with long-term current use of insulin ([facility]) Take 1 Tablet by mouth daily. 90 Tablet 1 06/04/20 25 Active clotrimazole (LOTRIMIN) 1 % Top CreamIndications:A thlete's foot on left Apply topically 2 times daily. 24 g 06/04/20 25 Active atorvastatin (LIPITOR) 80 mg Oral TabletIndications: Hyperlipidemia LDL goal <100 Take 1 Tablet by mouth daily. 90 Tablet 08/22/20 25 Active Active Problems Patient Care Coordination No te Formatting of this note migh t be different from the original. Care gap audit completed by Cecily Estes RN on 06/01/2024. MAMTA 11/16/22 UDS: 05/31/19jsg, 03/03/2021 pjt, 06/24/21 NO SHOW #1 02/06/16, #2 02/26/16, #3 10/01/19, #4 04/29/2020 Yumiko Frost - pjt SEP YUMIKO FROST NO SHOW- [...] (07/29/2022): Added automatically from request for surgery [id number] Bradycardia 09/26/2021 E. coli UTI 09/25/2021 COVID-19 [...] Dyslipidemia 02/29/2012 11/10/2016 Left sided numbness 12/04/19 Left arm weakness 12/04/2024 Immunizations Immunization Administration [...] Grandmother Social History Smoking Status as of 10/28/2025 Tobacco Use Types Packs/Day Years Used Date Smoking Tobacco: Never Assessed [facility] Utilities Answer Date Recorded In [...] Date Recorded PHQ-2 Total Score 0 09/10/2024 [facility] [place] of Occupat ional Health - Occupational Stress [...] things needed for daily living? No 12/05/2023 [facility] Transportation Answer D ate Recorded In [...] 06/04/2025 11:07 AM EDT Plan of Treatment Not on file Medical Devices Implanted Type Area Topographical Field Assistant Device Identifier Shelf Expiration Date Model / Serial / Lot Mesh Bard Soft 4 X 6 (10cm X 15cm) - [id number] Implanted:Qty: 1 on 07/31/[address] MD at [facility] N/A: Abdomen CR BARD:DAVOL 04/03/2020 [id number] / / [id number] Desara Blue Ss Short Suture Mesh Sling - [id number] Implanted:Qty: 1 on 01/02/2025 by Yesi Junior MD at [facility] N/A: Urethra [employer] 03/23/2027 [id number] / / [id number] Procedures Procedure Name Priority Date/Time Associated Diagnosis Comments ALBUMIN/CREATININE RATIO, RANDOM URINE Routine 06/04/2025 11:24 AM EDT Diabetic [...] (stress urinary incontinence, female) Special Needs sk ID CYSTOURETHROSCOPY 01/02/2025 11:55 AM EST Female genital prolapse, unspecified type Rectocele Cystocele, midline EDITH (stress urinary incontinence, female) Special Needs sk ID SLING OPERATION STRESS INCONTINENCE 01/02/2025 11:55 AM EST Female genital prolapse, unspecified type Rectocele Cystocele, midline EDITH (stress urinary incontinence, female) Special Needs sk ID POST COLPORRHAPHY RECTOCELE W/WO PERINEORRHAPHY 01/02/2025 11:55 [...] AIRWAY PLACEMENT Routine 12/06/2024 3:05 PM EST ID LAPAROSCOPY SURG CHOLECYSTECTOMY 12/06/2024 2:58 PM EST [...] Encounter for screening mammogram for breast cancer ALBUMIN/CREATININE RATIO, RANDOM URINE Routine 07/12/2024 7:41 AM EDT Type [...] with long-term current use of insulin (HCC) SCRAP YARD WORKER CYTOLOGY REQUEST (PAP ONLY) Routine 07/11/2024 11:41 AM EDT Cervical cancer screening [facility] SCRAP YARD WORKER CYTOLOGY ORDER Routine 07/11/2024 11:41 AM EDT [...] METER POC Routine 11/23/2023 12:35 PM EST IQOI-HLY1-UTV A/B Routine 11/23/2023 10:11 AM EST XR [...] medications (not anticoagulants) long-term use POCT URINE ALBUMIN:CREATININE RATIO Routine 12/22/2022 9:54 AM EST INTRAOP AIRWAY PLACEMENT Routine 10/21/2022 1:35 PM EST COLONOSCOPY-ENDO DEPT ONLY (ANESTHESIA) 10/21/2022 1:34 PM EST Screening for colon cancer [facility] COLONOSCOPY Routine 10/21/2022 1:20 PM EST GLUCOSE METER POC Routine 10/21/2022 12:49 PM EST IRIS DIABETIC RETINOPATHY EXAM Routine 10/06/2022 10:12 AM EST Type 2 diabetes mellitus without complication, unspecified whether assisted insulin use (HCC) SCANNED EKG 09/24/2022 11:28 AM EST XR CHEST AP PORTABLE EMILIE 09/22/2022 12:44 PM EST [id number]-BEG1-GMA A/B Routine 09/22/2022 12:15 PM EST COMPREHENSIVE [...] mellitus with peripheral neuropathy (HCC) POCT URINE ALBUMIN:CREATININE RATIO Routine 11/09/2021 12:14 PM EST Type 2 [...] Vascular Consult Note By: Earnestine Joe, SAMI, DEMAND PLANNING ANALYST PATIENT: Kristin Espinoza PCP: Malinda Patterson MD Primary Call Centre Supervisor: Reason for consult: none History provided by: [...] under left breast UMBILICAL HERNIA REPAIR 2005 [place] VENTRAL HERNIA REPAIR 2009 JPE VENTRAL HERNIA REPAIR N/A 07/31/2015 VENTRAL HERNIA and recurrent incisional hernia REPAIR WITH MESH ;Surgeon: Johnny St MD; Location: [facility] MAIN OR; Service: General Allergy Allergies Allergen [...] most recent cardiovascular imaging studies availabe in [facility] EMR werereviewed at time of consultation Assessment [...] result of coronary CTA Fred Irvin MD [facility] 03/27/2021 2:14 PM This chart was completed [...] under left breast UMBILICAL HERNIA REPAIR 2005 [place] VENTRAL HERNIA REPAIR 2009 JPE VENTRAL HERNIA REPAIR N/A 07/31/2015 VENTRAL HERNIA and recurrent incisional hernia REPAIR WITH MESH ;Surgeon: Johnny St MD; Location: [facility] MAIN OR; Service: General Social History Tobacco [...] 2 Lancets Misc Misc 1 Each by [facility].(Non-Drug; Combo Route) route 3 timesdaily. (Patient not [...] 76 15 99 % -- -- 03/26/21 1900 -- -- -- 65 15 98 % [...] This is a pleasant cooperative female in [facility]. HEENT: NC/AT, fundoscopic exam benign Cardiovascular: Carotid [...] [facility] JesuswoodTest Date:2021-03-27 Pat Name: KRISTIN ESPINOZA Department: DEPIDPatient ID: [id number] Room: [facility] Gender:Female Communication Engineer: Junior : [id number] By: Margaret SANDOVAL Order Number: [id number] MD: Tammy IntervalsAxis Rate: 77P: 63 ID: [id number] QRS:57 QRSD: 89 T: 51 QT:371 QTc: 421Interpretive Statements SINUSRHYTHM LOW QRS VOLTAGE IN PRECORDIAL LEADS Ek Ekg 12 Lead Result Date: 03/26/2021 [facility]Test Date:2021-03-26 Pat Name: KRISTIN ESPINOZA Department: DEPIDPatient ID: [id number] Room: Gender: FemaleTechnician: NANCY : [id number] By: [facility] Order Number: [id number] MD: Stewart Mesa, MDMeasurements Intervals [place] Rate:69 P: 60 ID: [id number]: 64 QRSD: 88 T:58 QT: 386 [...] LDL 70, at goal. Continue high-dose statin. 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 YARD WORKER CYTOLOGY REQUEST (PAP ONLY) Routine 02/26/2019 12:27 PM EDT Screening for cervical cancer [facility] SCRAP YARD WORKER CYTOLOGY ORDER Routine 02/26/2019 12:27 PM EDT Screening for cervical cancer HPV HIGH RISK Routine 02/26/2019 12:27 PM EDT Screening for cervical cancer MM MAMMO DIGITAL SCREENING W CAD BILAT Routine 02/14/2019 1:06 PM EDT Encounter for screening mammogram for breast cancer HM DIABETES EYE EXAM Routine 02/09/2019 SCRAP YARD WORKER CYTOLOGY REQUEST (PAP ONLY) Routine 02/07/2019 11:51 AM EDT Encounter for gynecological examination without abnormal finding Cervical cancer screening [facility] SCRAP YARD WORKER CYTOLOGY ORDER Routine 02/07/2019 11:51 AM EDT [...] obstruction or gangrene Special Needs LISA CPT; 50095 GLUCOSE METER POC Routine 07/31/2015 10:57 AM [...] diabetes mellitus with neurological manifestations, uncontrolled (HCC) SCRAP YARD WORKER CYTOLOGY REPORT Routine 05/15/2015 9:23 PM EDT [...] STAT 03/31/2010 12:[address] ABD/PELVIS BLOW DOWN HELPER Routine 03/19/2010 11:35 AM EDT [facility] ARTERIAL [...] Routine 11/01/2009 1:[address] ABD/PELVIS BLOW DOWN HELPER Routine 10/30/2009 9:50 PM EST XX CHEST PA & LATERAL Routine 10/21/2009 2:24 PM EST XX BILAT KNEE 3 VIEWS Routine 08/29/2009 10:[address] ABD/PELVIS BLOW DOWN HELPER Routine 06/20/2009 12:40 PM EDT US LIVER-HEPATIC SONOGRAPHY Routine 04/02/2009 2:40 PM EDT XX LUMBOSACRAL SPINE Routine 03/13/2009 10:40 AM EDT XX CHEST PA & LATERAL Routine 03/13/2009 10:[address] ABD/PELVIS BLOW DOWN HELPER Routine 08/27/2008 3:45 AM EDT EK EKG [...] resultswithin the time period is included. Urine Albumin <12.0 mg/L 06/05/2025 2:38 AM EDT [facility] Urine Creatinine 158.0 mg/dL 06/05/20 2:38 AM EDT [facility] Ur Albumin/Creat Ratio 06/05/2025 2:38 AM EDT [facility] Comment: Because the albumin level [...] Malinda Patterson MD URINE ORDERABLES Final Result Performing Organization Address City/[facility]/ZIP Co de Phone Number [facility] [address] [facility] [address] [place] [phone] [facility] [address] [place], [place] [phone] * (ABNORMAL) POCT GLYCATED HEMOGLOBIN, TOTAL (06/04/2025 11:23 AM EDT) Only the most recent of14 resultswithin the time period is included. Hemoglobin A1C 7.4(A) 4 - 6 % SEP OFFICE Lot Number [id number] SEP OFFICE Expiration Date 02/07/2027 SEP OFFICE SeriAl # SEP OFFICE 06/04/2025 11:2 3 AM EDT Malinda Patterson MD POINT OF CARE TEST ORDE RABLES Final Result Performing Organization Address City/[facility]/ZIP Co de Phone Number SEP OFFICE * IRIS DIABETIC RETINOPATHY EXAM (06/04/2025 11:18 AM EDT) Retinopathy Exam Severity NORMAL [facility] Right Diabetic Retinopathy None [facility] Right Macular Edema None [facility] Right Other Retina None [facility] Right Eye Image Quality Gradable Image [facility] Left Diabetic Retinopathy None [facility] Left Macular Edema None SE LAB Left Other Retina None [facility] Left Eye Image Quality Gradable Image [facility] 06/04/2025 11:1 8 AM EDT 06/04/2025 11:18 AM EDT Impressions [facility] - 06/04/2025 11:34 AM EDT Retinal Study Result for KRISTIN ESPINOZA, a 54 y/o, F (: 1970, ) presented to [facility] on 06-04-2025 for a retinal imaging [...] signed by Ravindra Hernandez MD, , Taxonomy: [id number] on 06-04-2025 15:34 UTC. NOTE: Any pathology noted on this diabetic retinal evaluation should be confirmed by an appropriate ophthalmic examination. us Malinda Patterson MD OPHTHALMOLOGY SERVICES ORDERABLES Final Result [facility] [address] [place] [phone] * (ABNORMAL) CBC (04/10/2025 11:00 AM EDT) Only the most recent of15 resultswithin the time period is included. WBC 9.8 3.7 - 10.3 x10(3)/mcL 04/10/2025 11:14 AM EDT [facility] RBC 4.64 3.90 - 5.20 x10(6)/mcL 04/10/2025 11:14 AM EDT [facility] Hgb 12.4 11.2 - 15.7 g/dL 04/10/2025 11:14 AM EDT [facility] Hct 40.6 34.0 - 45.0 % 04/10/2025 11:14 AM EDT [facility] MCV 87.5 80.0 - 100.0 fL 04/10/2025 11:14 AM EDT [facility] MCH 26.7 26.0 - 34.0 pg 04/10/2025 11:14 AM EDT [facility] MCHC 30.5(L) 30.7 - 35.5 g/dL 04/10/2025 11:14 AM EDT [facility] RDW 16.6(H) <=14.9 % 04/10/2025 11:14 AM EDT [facility] Platelet 318 155 - 369 x10(3)/mcL 04/10/2025 11:14 AM EDT [facility] MPV 11.4 8.8 - 12.5 fL 04/10/2025 11:14 AM EDT [facility] Blood VENOUS BLOOD / Unknown Venipuncture / Unknown 04/10/2025 11:00 AM EDT 04/10/2025 11:09 AM EDT Iwona Jamison DEMAND PLANNING ANALYST HEMATOLOGY [place]ABLES [place] [address] * (ABNORMAL) BASIC METABOLIC PANEL (04/10/2025 11:00 AM EDT) Only the most recent of28 resultswithin the time period is included. Sodium 136 136 - 145 mmol/L 04/10/2025 11:22 AM EDT [facility] Potassium 5.2(H) 3.5 - 5.0 mmol/L 04/10/2025 11:22 AM EDT [facility] Chloride 101 98 - 107 mmol/L 04/10/2025 11:22 AM EDT [facility] Total CO2 26 22 - 29 mmol/L 04/10/2025 11:22 AM EDT [facility] Anion Gap 9 7 - 16 mmol/L 04/10/2025 11:22 AM EDT [facility] Calcium 9.3 8.6 - 10.4 mg/dL 04/10/2025 11:22 AM EDT [facility] Glucose Lvl 127(H) 70 - 99 mg/dL 04/10/2025 11:22 AM EDT [facility] BUN 14 6 - 20 mg/dL 04/10/2025 11:22 AM EDT [facility] Creatinine 0.77 0.51 - 1.30 mg/dL 04/10/2025 11:22 AM EDT [facility] eGFR (CKD-EPIcr 2020) 91 >=60 mL/min/1.7 3 m2 04/10/2025 11:22 AM EDT [facility] Comment:Estimated GFR was ca lculated using the CKD-EPIcr (2020) equation refit without race. The equation is recommended by the National Kidney Foundation - [place] [employer] Neph[employer] Task Force. Blood VENOUS BLOOD / Unknown Venipuncture / Unknown 04/10/2025 11:00 AM EDT 04/10/2025 11:08 AM EDT Iwona Jamison APRN CHEMISTRY ORDERABLES Final R esult Performing Organization Address City/[facility]/ZIP Co de Phone Number [place] [phone] * (ABNORMAL) GLUCOSE METER POC (04/10/2025 10:24 AM EDT) Only the most recent of49 resultswithin the time period is included. [facility] Signature Glucose Meter POC 164(H) 70 - 100 mg/dL 04/10/2025 10:26 AM EDT [facility] Sample Type Capillary 04/10/2025 10:26 AM EDT [facility] Patient Status Non-Critical Patient 04/10/2025 10:26 AM EDT [facility] Blood BLOOD SPECIMEN / Unknown 04/10/2025 10:24 AM EDT 04/10/2025 10:26 AM EDT us Lab Test POINT OF CARE TEST ORDERABLES Fi nal Result Performing Organization Address [facility]/ZIP Co de Phone Number [facility] [address] [place] [address] * SCANNED EKG (03/07/2025 2:20 PM EDT) [...] please contactthe office of the ordering clinician. Ly Hernández MD IMG CT ORDERABLES Final Resu lt * TROPONIN-T HIGH SENSITIVITY BASELINE W/ REFLEX (03/07/2025 2:00 AM EDT) Only the most recent of8 resultswithin the time period is included. zr-[id number]-P 7 <14 ng/L 03/07/2025 2:30 AM EDT [facility] Blood VENOUS BLOOD / Unknown Venipuncture / Unknown 03/07/2025 2:00 AM EDT 03/07/2025 2:05 AM EDT Narrative [facility] - 03/07/2025 2:30 AM EDT Ingestion of tabatha doses of biotin (>5 mg/day) taken within 8 hours of drawing blood sample can interfere with this immunoassay test. Ly Hernández MD CHEMISTRY ORDERABLES Final R esult [facility] [address] [facility] , [place] [address] * (ABNORMAL) CBC WITH DIFF (03/07/2025 2:00 AM EDT) Only the most recent of33 resultswithin the time period is included. WBC 12.6(H) 3.7 - 10.3 x10(3)/mcL 03/07/2025 2:08 AM EDT [facility] RBC 4.92 3.90 - 5.20 x10(6)/mcL 03/07/2025 2:08 AM EDT [facility] Hgb 12.9 11.2 - 15.7 g/dL 03/07/2025 2:08 AM EDT [facility] Hct 42.5 34.0 - 45.0 % 03/07/2025 2:08 AM EDT [facility] MCV 86.4 80.0 - 100.0 fL 03/07/2025 2:08 AM EDT [facility] MCH 26.2 26.0 - 34.0 pg 03/07/2025 2:08 AM EDT [facility] MCHC 30.4(L) 30.7 - 35.5 g/dL 03/07/2025 2:08 AM EDT [facility] RDW 15.6(H) <=14.9 % 03/07/2025 2:08 AM EDT [facility] Platelet 320 155 - 369 x10(3)/[facility] 03/07/2025 2:08 AM EDT [facility] MPV 12.1 8.8 - 12.5 fL 03/07/2025 2:08 AM EDT [facility] Neut Percent 62.5 % 03/07/2025 2:08 AM EDT [facility] Comment:Neutrophils equals s egs plus bands Imm Gran% 0.2 % 03/07/2025 2:08 AM EDT [facility] Comment:Automated count of m etamyelocytes, myelocytes and promyelocytes. Lymph Percent 29.0 % 03/07/2025 2:08 AM EDT [facility] [place] Percent 6.1 % 03/07/2025 2:08 AM EDT [facility] Eos Percent 1.7 % 03/07/2025 2:08 AM EDT [facility] Baso Percent 0.5 % 03/07/2025 2:08 AM EDT [facility] Neut # 7.9(H) 1.6 - 6.1 x10(3)/mcL 03/07/2025 2:08 AM EDT [facility] Comment:Neutrophils equals s egs plus bands IMMGRAN# 0.0 0.0 - 0.1 x10(3)/mcL 03/07/2025 2:08 AM EDT [facility] Comment:Automated count of m etamyelocytes, myelocytes and promyelocytes. An absolute IG <0.1 is reported as 0.0. Lymph # 3.7 1.2 - 3.9 x10(3)/mcL 03/07/2025 2:08 AM EDT [facility] [place] # 0.8 0.3 - 0.9 x10(3)/[facility] 03/07/2025 2:08 AM EDT [facility] Eos# 0.2 0.0 - 0.5 x10(3)/[facility] 03/07/2025 2:08 AM EDT [facility] Baso # 0.1 0.0 - 0.1 x10(3)/[facility] 03/07/2025 2:08 AM EDT [facility] Blood VENOUS BLOOD / Unknown Venipuncture / Unknown 03/07/2025 2:00 AM EDT 03/07/2025 2:05 AM EDT us Ly Hernández MD HEMATOLOGY ORDERABLES Final Result [facility] [address] [facility] , [address] [place] [id number] * (ABNORMAL) COMPREHENSIVE METABOLIC PANEL (03/07/2025 2:00 AM EDT) Only the most recent of25 resultswithin the time period is included. Sodium 141 136 - 145 mmol/L 03/07/2025 2:30 AM EDT [facility] Potassium 5.0 3.5 - 5.0 mmol/L 03/07/2025 2:30 AM EDT [facility] Chloride 105 98 - 107 mmol/L 03/07/2025 2:30 AM EDT [facility] Total CO2 23 22 - 29 mmol/L 03/07/2025 2:30 AM EDT [facility] Anion Gap 13 7 - 16 mmol/L 03/07/2025 2:30 AM EDT [facility] Calcium 10.0 8.6 - 10.4 mg/dL 03/07/2025 2:30 AM EDT [facility] Glucose Lvl 233(H) 70 - 99 mg/dL 03/07/2025 2:30 AM EDT [facility] BUN 17 6 - 20 mg/dL 03/07/2025 2:30 AM EDT [facility] Creatinine 0.80 0.51 - 1.30 mg/dL 03/07/2025 2:30 AM EDT [facility] Albumin 4.1 3.5 - 5.2 gm/dL 03/07/2025 2:30 AM EDT [facility] Total Protein 7.6 6.4 - 8.3 gm/dL 03/07/2025 2:30 AM EDT [facility] Bili Total 0.6 0.2 - 1.3 mg/dL 03/07/2025 2:30 AM EDT [facility] ALT 28 <=41 U/L 03/07/2025 2:30 AM EDT [facility] AST 17 <=40 U/L 03/07/2025 2:30 AM EDT [facility] Alk Phos 112 36 - 123 U/L 03/07/2025 2:30 AM EDT [facility] eGFR (CKD-EPIcr 2020) 87 >=60 mL/min/1.7 3 m2 03/07/2025 2:30 AM EDT [facility] Comment:Estimated GFR was ca lculated using the CKD-EPIcr (2020) equation refit without race. The equation is recommended by the National Kidney Foundation - [place] [employer] of Nephrology Task Force. Blood VENOUS BLOOD / Unknown Venipuncture / Unknown 03/07/2025 2:00 AM EDT 03/07/2025 2:05 AM EDT us Ly Hernández MD CHEMISTRY ORDERABLES Final R esult [facility] [address] [facility] , [place] [address] * EK EKG 12 LEAD (03/07/2025 1:16 AM EDT) Only the most recent of21 resultswithin the time period is included. Anatomical Region Laterality Modality Electrocardiogra phy 03/07/2025 1:19 AM EDT Impressions 03/07/2025 10:[address] [facility] Test Date: 2025-03-07 Pat Name: KRISTIN ESPINOZA [facility] Gender: Female Communication Engineer: : 1970 Requested By: LY Pennington Order Number: [id number] Reading MD: Fred Irvin MD Measurements Intervals [place] Rate: 74 P: 48 ID: [id number] QRS: 37 QRSD: 89 T: 52 QT: 395 QTc: 439 Interpretive Statements SINUS RHYTHM POSSIBLE LEFT ATRIAL ENLARGEMENT LOW QRS VOLTAGE IN PRECORDIAL LEADS NONSPECIFIC T-WAVE ABNORMALITY Electronically Signed On 03-07-2025 10:44:13 EDT by Fred Irvin MD Narrative Procedure Note Fred Irvin MD - 03/07/[address] Test Date: 2025-03-07 Pat Name: [facility] Department: [facility] Room: 08 Gender: Female Communication Engineer: : 1970 Requested By: LY Pennington Order Number: [id number] Reading MD: Fred Irvin MD Measurements Intervals [place] Rate: 74 P: 48 ID: [id number] QRS: 37 QRSD: 89 T: 52 [...] of4 resultswithin the time period is included. Medications Expected Gabapentin 02/07 8:07 PM EDT [facility] Barbiturates Absent Cutoff 200 ng/mL 03/06/2025 8:07 PM EDT [facility] THC <10 Cutoff 10 ng/mL ng/mL 03/06/2025 8:07 PM EDT [facility] Comment:8-stshnci-lwdsltruje cannabinol; does not distinguish between prescribed and illicit forms THC Glucuronide <10 Cutoff 10 ng/mL ng/mL 03/06/2025 8:07 PM EDT [facility] Comment:Metabolite of THC Amphetamine <50 Cutoff 50 ng/mL ng/mL 03/06/2025 8:07 PM EDT [facility] Comment:e.g., Adderall, Vyva nse, Dexedrine, Obetrol MDA <50 Cutoff 50 ng/mL ng/mL 03/06/2025 8:07 PM EDT [facility] Comment:Metabolite of MDMA, and MDEA MDEA [...] 03/06/2025 8:07 PM EDT [facility] Comment:Metabolite of Chlord iazepoxide(Librium), Clorazepate(Tranxene), Diazepam, Halazepam, (Alapryl), Prazepam(Centrax) Flunitrazepam <50 Cutoff 50 ng/mL ng/mL 03/06/2025 8:07 PM EDT [facility] Comment:e.g.,Rohypnol, [place] zep 7-Aminoflunitrazepam <50 Cutoff 50 ng/mL ng/mL 03/06/2025 8:07 PM EDT [facility] Comment:Metabolite of Flunit razepam Flurazepam <50 Cutoff 50 ng/mL ng/mL 03/06/2025 8:07 PM EDT [facility] Comment:e.g., [place] Hydroxyethylflurazepam <50 Cutoff 50 ng/mL ng/mL 03/06/2025 8:07 PM EDT [facility] Comment:Metabolite of Fluraz epam Lorazepam <50 Cutoff 50 ng/mL ng/mL 03/06/2025 8:07 PM EDT [facility] Comment:e.g., Ativan Lorazepam Glucuronide <50 Cutoff 50 ng/mL ng/mL 03/06/2025 8:07 PM EDT [facility] Comment:Metabolite of Loraze swathi Midazolam <50 Cutoff 50 ng/mL ng/mL 03/06/2025 8:07 PM EDT [facility] Comment:e.g., Versed alpha-hydroxymidazolam <50 Cutoff 50 ng/mL ng/mL 03/06/2025 8:07 PM EDT [facility] Comment:Metabolite of Versed Oxazepam <50 Cutoff 50 ng/mL ng/mL 03/06/2025 8:07 PM EDT [facility] Comment:e.g., Serax; also Me tabolite of Temazepam, and Nordiazepam Oxazepam Glucuronide <50 Cutoff 50 ng/mL ng/mL 03/06/2025 8:07 PM EDT [facility] Comment:Metabolite of Oxazep am Temazepam <50 Cutoff 50 ng/mL ng/mL 03/06/2025 8:07 PM EDT [facility] Comment:e.g., Restoril; also Metabolite of Diazepam Temazepam Glucuronide <50 Cutoff 50 ng/mL ng/mL 03/06/2025 8:07 PM EDT [facility] Comment:Metabolite of Temaze swathi and Diazepam Triazolam <50 Cutoff 50 ng/mL ng/mL 03/06/2025 8:07 PM EDT [facility] Comment:e.g., Halcion alpha-hydroxytriazolam <50 Cutoff 50 ng/mL ng/mL 03/06/2025 8:07 PM EDT [facility] Comment:Metabolite of Triazo betancourt Buprenorphine <5 Cutoff 5 ng/mL ng/mL 03/06/2025 8:07 PM EDT [facility] Comment:e.g., Suboxone, Subu sona,Sublocade, Buprenex Buprenorphine Glucuronide <10 Cutoff 10 ng/mL ng/mL 03/06/2025 8:07 PM EDT [facility] Comment:Buprenorphine Metabo lite Norbuprenorphine <5 Cutoff 5 ng/mL ng/mL 03/06/2025 8:07 PM EDT [facility] Comment:Buprenorphine Metabo lite Norbuprenorphine Glucuronide <10 Cutoff 10 ng/mL ng/mL 03/06/2025 8:07 PM EDT [facility] Comment:Buprenorphine Metabo lite Benzoylecgonine <50 Cutoff 50 ng/mL ng/mL 03/06/2025 8:07 PM EDT [facility] Comment:Cocaine Metabolite Fentanyl <1 Cutoff 1 ng/mL ng/mL 03/06/2025 8:07 PM EDT [facility] Comment:e.g.,Duragesic, Oral et, Actiq, Sublimaze, Innovar, Lazanda Norfentanyl <1 Cutoff 1 ng/mL ng/mL 03/06/2025 8:07 PM EDT [facility] Comment:Metabolite of Fentan yl 6-Monoacetylmorphine (6MAM) <10 Cutoff 10 ng/mL ng/mL 03/06/2025 8:07 PM EDT [facility] Comment:Metabolite of Heroin ; Morphine is expected Methadone <50 Cutoff 50 ng/mL ng/mL 03/06/2025 8:07 PM EDT [facility] Comment:e.g., Dolophine, Met hadose, Amidone EDDP <50 Cutoff 50 ng/mL ng/mL 03/06/2025 8:07 PM EDT [facility] Comment:Methadone Metabolite Carisoprodol <100 Cutoff 100 ng/mL ng/mL 03/06/2025 8:07 PM EDT [facility] Comment:e.g., Soma Meprobamate <100 Cutoff 100 ng/mL ng/mL 03/06/2025 8:07 PM EDT [facility] Comment:e.g., [place], Equa nil, Micrainin, Equagesic; Metabolite of Carisoprodol Codeine <50 Cutoff 50 ng/mL ng/mL 03/06/2025 8:07 PM EDT [facility] Comment:e.g., Acetaminophen w/Codeine, Tylenol3 w/ Codeine Codeine Glucuronide <50 Cutoff 50 ng/mL ng/mL 03/06/2025 8:07 PM EDT [facility] Comment:Metabolite of Codein e Meperidine <50 Cutoff 50 ng/mL ng/mL 03/06/2025 8:07 PM EDT [facility] Comment:e.g., Demerol, Pethi dine Normeperidine <50 Cutoff 50 ng/mL ng/mL 03/06/2025 8:07 PM EDT [facility] Comment:Metabolite of Meperi dine Morphine <50 Cutoff 50 ng/mL ng/mL 03/06/2025 8:07 PM EDT [facility] Comment:e.g., MS Contin, Leonor anol; Metabolite of Codeine and Heroin; may reflect poppy seed ingestion Nmtujpof-7-Jmfusgqqufs <25 Cutoff 25 ng/mL ng/mL 03/06/2025 8:07 PM EDT [facility] Comment:Metabolite of [place]phi ne. Mppabbex-0-Mpkjbqbytro <25 Cutoff 25 ng/mL ng/mL 03/06/2025 8:07 PM EDT [facility] Comment:Metabolite of Morphi ne. Naloxone <25 Cutoff 25 ng/mL ng/mL 03/06/2025 8:07 PM EDT [facility] Comment:e.g., Narcan, Evzio Hydrocodone <50 Cutoff 50 ng/mL ng/mL 03/06/2025 8:07 PM EDT [facility] Comment:e.g., Lorcet, Lortab , Vicodin, [place]; Minor Metabolite of Codeine Dihydrocodeine <50 Cutoff 50 ng/mL ng/mL 03/06/2025 8:07 PM EDT [facility] Comment:e.g., Didrate, Parzo ne, Parlor, Synalgos; Metabolite of Hydrocodone Norhydrocodone <50 Cutoff 50 ng/mL ng/mL 03/06/2025 8:07 PM EDT [facility] Comment:Metabolite of Hydroc odone Hydromorphone <50 Cutoff 50 ng/mL ng/mL 03/06/2025 8:07 PM EDT [facility] Comment:e.g., Dilaudid; also Metabolite of Hydrocodone and Minor Metabolite of Morphine Hydromorphone Glucuronide <50 Cutoff 50 ng/mL ng/mL 03/06/2025 8:07 PM EDT [facility] Comment:Metabolite of Hydrom orphone Oxycodone <50 Cutoff 50 ng/mL ng/mL 03/06/2025 8:07 PM EDT [facility] Comment:e.g., Oxycontin, Per cocet, Endocet, Percodan, Roxicet Noroxycodone <50 Cutoff 50 ng/mL ng/mL 03/06/2025 8:07 PM EDT [facility] Comment:Metabolite of Oxycod one Oxymorphone <50 Cutoff 50 ng/mL ng/mL 03/06/2025 8:07 PM EDT [facility] Comment:e.g., Opana; Metabol ite of Oxycodone Oxymorphone Glucuronide <50 Cutoff 50 ng/mL ng/mL 03/06/2025 8:07 PM EDT [facility] Comment:Metabolite of Oxycod one Noroxymorphone <50 Cutoff 50 ng/mL ng/mL 03/06/2025 8:07 PM EDT [facility] Comment:Metabolite of Oxycod one, and Oxymorphone, Noroxycodone Metabolite Tramadol <50 Cutoff 50 ng/mL ng/mL 03/06/2025 8:07 PM EDT [facility] Comment:e.g., Ultram, ConZip N-Aofqrzxbi-hsy-Tramadol <50 Cutoff 50 ng/mL ng/mL 03/06/2025 8:07 PM EDT [facility] Comment:Metabolite of Tramad ol Tapentadol <50 Cutoff 50 ng/mL ng/mL 03/06/2025 8:07 PM EDT [facility] Comment:Nucynta Tapentadol-Glucuronide <50 Cutoff 50 ng/mL ng/mL 03/06/2025 8:07 PM EDT [facility] Comment:Metabolite of Tapent adol Urine Creatinine 96.0 mg/dL 03/06/20 8:07 PM EDT [facility] Comment: Greater than 20: Consistent with valid sample Greater than 2 but less than 20: Possible dilution Less than 2: Questionable valid sample Urine STRUCTURE OF URINARY TRACT PROPER / Unknown 03/05/2025 11:28 AM EDT 03/05/2025 11:28 AM EDT Narrative [facility] - 03/06/2025 8:07 PM EDT The absence of expected drug(s), and/or drug metabolite(s), may indicate non-compliance, diluted or adulterated urine, poor drug absorption, concentration of drug below the cut-off, timing of specimen collection relative to administration of drug, or limitations of testing. Specimens are held for 7 days. This test was developed, and its performance characteristics determined by [facility] ([facility] It has not been cleared or approved by the FDA. This test is used for clinical purposes. It should not be regarded as investigational or for research. [facility] is certified under the Clinical Laboratory Improvement Amendments (CLIA) as qualified to perform high complexity clinical laboratory testing. us Malinda Patterson MD URINE ORDERABLES Final Result Performing Organization Address [facility] Co de Phone Number [facility] [place] [address] [facility], [place] [address] [facility] [address] [place] [address] * SCANNED RHYTHM STRIPS (01/03/2025 10:20 AM EST) Only the most recent of4 resultswithin the time period is included. Anatomical Region Laterality Modality Other 01/03/2025 10:2 0 AM EST us Unknown Provider IMG ECG ORDERABLES Final Result * INTRAOP AIRWAY PLACEMENT (01/02/2025 12:01 PM EST) Narrative [facility] - 01/02/2025 12:01 PM EST Malinda Soto CRNA 01/02/2025 12:25 PM Intraop Airway Placement: Date/Time: 01/02/2025 12:01 PM Induction type: IV Mask size: Standard adult Pre-Oxygenation: Standard Mask ventilation: Easy mask ventilation Technique: Video laryngoscope Laryngoscope blade: Wilder Blade size: 3 Grade view: I Airway type: ETT- cuffed Intubation assist devices: Stylet 14fr Airway location: Oral Device size: 7mm Secured at: 21 cm Secured by: Tape Measured from: Lips Placement verified: End tidal CO2 and Symmetric chest wall motion Condition: Atraumatic and Unchanged Insertion attempts: 1 Title: FLUE GAS ANALYST us Zoltan Ricketts MD ID ANESTHESIA Edited Result - Final Performing Organization Address [facility] de Phone Number [facility] [address] [place] [id number] * POCT URINE (01/02/2025 10:35 AM EST) Only the most recent of5 resultswithin the time period is included. Preg Test, Ur negative [facility] Lot Number [id number] [facility] Expiration Date 2025 [facility] SeriAl # [facility] Control Line Yes YES/NO [facility] 01/02/2025 10:3 5 AM EST Yesi Junior MD POINT OF CARE TEST ORDERA BLES Final Result Performing Organization Address City/[facility]/ZIP Co de Phone Number [facility] [address] [place] [address], [facility] [phone] * POCT EKG (01/01/2025 8:36 AM EST) Only the most recent of2 resultswithin the time period is included. 01/01/2025 8:36 AM EST Malinda Patterson MD POINT OF CARE CARDIOLOG Y Final Result Performing Organization Address City/[facility]/ZIP Co de Phone Number SEP OFFICE * PATHOLOGY TISSUE REQUEST (12/06/2024 3:37 PM EST) CASE REPORT Surgical Pathology Case: [id number] Authorizing Provider: Sree Howell MD Collected: 12/06/2024 1537 Ordering Location: [facility] Received: 12/06/2024 1939 Pathologist: Yadira Luis MD Specimen: Gallbladder, gallbladder 12/10/2024 9:14 AM EST [facility] FINAL DIAGNOSIS Gallbladder, cholecystectomy: - Acute and chronic cholecystitis. - Cholelithiasis. - 1 benign lymph node. 12/10/2024 9:14 AM EST [facility] at 0914 EST GROSS DESCRIPTION The [...] and velvety. No discrete lesions are identified. Electronic Warfare Linguist sections, to include 1 whole lymph node candidate and the cystic duct margin, en face are submitted in cassette A1. DAVID Cunningham PA(ASCP) 12/07/2024 12/10/2024 9:14 AM EST [facility] MICROSCOPIC DESCRIPTION The microscopic examination may have been rendered in whole, or in part, by analyzing high-resolution digital images (whole slide images) on the [employer] Digital Pathology platform validated at [facility]. 12/10/2024 9:14 AM EST [facility] EMBEDDED IMAGES 12/10/2024 9:14 AM [facility] Tissue ENTIRE GALLBLADDER / Unknown 12/06/2024 3:37 PM EST 12/06/2024 7:39 PM EST us Sree Howell MD PATHOLOGY ORDERABLES Final Result [facility] [address] [place] [address] [place] [address] * INTRAOP AIRWAY PLACEMENT (12/06/2024 3:05 PM EST) Narrative [facility] - 12/06/2024 3:05 PM EST Regine [...] attempts: 1 Attempt 1 by: MARCUS Title: FLUE GAS ANALYST us Michael Haile MD ID ANESTHESIA Final Re sult Performing Organization Address [facility] Co de Phone Number [facility] [address] [place], [place] [id number] * (ABNORMAL) HEMOGLOBIN A1C (12/04/2024 1:02 PM EST) Only the most recent of16 resultswithin the time period is included. Pathologist [facility] Hgb A1C 7.8(H) 4.2 - 5.6 % 12/04/2024 8:24 PM EST [facility] Avg Glucose 177 mg/dL 12/04/2024 8:24 PM EST [facility] Blood VENOUS BLOOD / Unknown Venipuncture / Unknown 12/04/2024 1:02 PM EST 12/04/2024 1:02 PM EST Narrative [facility] - 12/04/2024 8:24 PM EST REFERENCE RANGE: Normal: 4.0-5.6% Pre-diabetes: 5.7-6.4% Provisional diagnosis of diabetes: >6.4% Hgb F>10% and anything which shortens red cell survival, such as hemolytic anemia, or unstable hemoglobin variants such as HbSS, HbSC, or HbCC, will lower the HbA1c value associated with a given level of glycemic control. us Bernadette Rangel DEMAND PLANNING ANALYST CHEMISTRY ORDERABLES Final Result Performing Organization Address [facility] Co de Phone Number [facility] [employer] [address] , [place] [address] [facility] [address] [place] [address] * URINALYSIS REFLEX (10/15/2024 8:35 PM EST) Only the most recent of5 resultswithin the time period is included. UA Color Light Yellow 10/15/2024 8:52 PM EST [facility] UA Appear Clear Clear 10/15/2024 8:52 PM EST [facility] UA Glucose Negative Negative mg/dL 10/15/2024 8:52 PM EST [facility] UA Ketones Negative Negative mg/dL 10/15/2024 8:52 PM EST [facility] UA Blood Negative Negative 10/15/2024 8:52 PM EST [facility] UA pH 5.5 5.0 - 8.0 pH 10/15/2024 8:52 PM EST [facility] UA Protein Negative Negative mg/dL 10/15/2024 8:52 PM EST [facility] UA Urobilinogen Normal <=1 mg/dL 8:52 PM EST [facility] UA Bili Negative Negative 10/15/2024 8:52 PM EST [facility] UA Nitrite Negative Negative 10/15/2024 8:52 PM EST [facility] UA Leuk Est Negative Negative 10/15/2024 8:52 PM EST [facility] UA Spec Grav 1.016 1.001 - 1.035 no units 10/15/2024 8:52 PM EST [facility] Comment:Reference range dmitry d for random specimens only. Urine URINE SPECIMEN COLLECTION, CLEAN CATCH / Unknown 10/15/2024 8:35 PM EST 10/15/2024 8:42 PM EST Michael Perez DO URINE ORDERABLES Final Result Performing Organization Address City/[facility]/ZIP Co de Phone Number [facility], [address] , [place] [address] * EXTRA WALL URINE CX (10/15/2024 8:35 PM EST) Only the most recent of7 resultswithin the time period is included. Urine URINE SPECIMEN COLLECTION, CLEAN CATCH / Unknown 10/15/2024 8:35 PM EST 10/15/2024 8:42 PM EST Michael Perez DO MICROBIOLOGY - GENERAL ORDERA BLES Final Result Performing Organization Address [facility]/[place] [address] * LIPASE LEVEL (10/15/2024 7:27 PM EST) Only the most recent of5 resultswithin the time period is included. Lipase Lvl 14 13 - 60 U/L 10/15/2024 8:02 PM EST [facility] Blood VENOUS BLOOD / Unknown Venipuncture / Unknown 10/15/2024 7:27 PM EST 10/15/2024 7:36 PM EST Michael Perez DO CHEMISTRY ORDERABLES Final Re sult [facility] [address] [place] [address] * POTASSIUM REPEAT (09/10/2024 9:57 AM EST) Potassium 4.3 3.5 - 5.0 mmol/L 09/10/2024 10:27 AM EST [facility] Blood CAPILLARY BLOOD / Unknown Capillary / Unknown 09/10/2024 9:57 AM EST 09/10/2024 10:02 AM EST Cecily Campos APRN CHEMISTRY ORDERABLES Final Result Performing Organization Address City/[facility]/ZIP Co de Phone Number [facility] [address] [facility], [address] [place] [phone] * NM MYOCARDIAL PERFUSION SPECT STRESS AND [...] function was normal withoutregional wall motion abnormalities. us Sree Pollock MD [facility] CARDIAC ORDERABLES Fin al Result * ST STRESS TEST LEXISCAN (09/10/2024 8:57 AM EST) Anatomical Region Laterality Modality Cardiac Stress T esting 09/10/2024 8:23 AM EST Impressions 09/10/2024 10:46 AM EST [facility] Test Date: 2024-09-10 Pat Name: KRISTIN ESPINOZA Department: DEPID Room: 54 Gender: Female Communication Engineer: DANUTA Rios RN : 1970 Requested By: SREE POLLOCK Order Number: [id number] Reading MD: King Vega MD Interpretive Statements [...] Note King Vega MD - 09/10/2024 IMPRESSION [facility] [place] Test Date: 2024-09-10 Pat Name: KRISTIN ESPINOZA Department: DEPID Room: 5411 Gender: Female Communication Engineer: DANUTA Rios RN : 1970 Requested By: SREE POLLOCK Order Number: [id number] Dyllan MD: King Vega MD Interpretive Statements Stress [...] of13 resultswithin the time period is included. ECG INTERPRET NSR [facility] 09/10/2024 6:59 AM EST Narrative [facility] - 09/10/2024 7:38 AM EST ROUTINE//AC ID 0.16 QRS 0.12 RR 0.82 QT 0.38 QTc 0.42 See Clinical Report link for waveform capture us Unknown Provider POINT OF CARE CARDIOLOGY Final Result [facility] [address] [place] [address] * (ABNORMAL) LIPID SCREEN (09/09/2024 6:52 AM EST) Only the most recent of3 resultswithin the time period is included. Pathologist [facility] Cholesterol 101 <200 mg/dL 09/09/2024 7:28 AM EST [facility] [place] Comment: < 200 Desirable 200 - 239 Borderline High >= 240 High Triglyceride 70 <150 mg/dL 09/09/2024 7:28 AM EST [facility] [employer] [facility] Comment: < 150 Normal 150 - 199 Borderline High 200 - 499 High >= 500 Very High HDL 37(L) >=40 mg/dL 09/09/2024 7:28 AM EST [facility] Comment: > 60 Optimal 40 - 60 Acceptable < 40 Low LDL Calculated 49 <100 mg/dL 09/09/2024 7:28 AM EST [facility] Comment: < 100 Optimal 100 - 129 Near or above optimal 130 - 159 Borderline High 160 - 189 High >= 190 Very High Non-HDL-C Calculated 64 <=129 mg/dL 09/09/2024 7:28 AM EST [facility] Comment: <130 Desirable 130-159 Above Desirable 160-189 Borderline High 190-219 High >= 220 Very High Fasting Specimen? Yes None 024 7:28 AM EST [facility] Blood VENOUS BLOOD / Unknown Venipuncture / Unknown 09/09/2024 6:52 AM EST 09/09/2024 6:55 AM EST us Sree Pollock MD CHEMISTRY ORDERABLES Final Re sult [facility] [address] [facility] , [place] [address] [facility] [address] [place] [address] * TROPONIN-T HIGH SENSITIVITY 2HR (09/08/2024 1:19 AM EDT) Only the most recent of4 resultswithin the time period is included. [facility] jp-cSrneurlb-U 2HR <6 <14 ng/L 09/08/2024 1:40 AM EDT [facility] Comment:See the website raymundoo [employer] for rule out [place] care pathway, conditions other than AMI that can cause elevated hs cTnT, and comparison of values from the 4th and 5th generation Ramon tests. [email or web address]-answers/[email or web address]/cpm-[email or web address] 48267 hs-cTnT 2Hr Delta from Baseline 09/08/2024 1:40 AM EDT [facility] Comment:Unable to calculate, result is outside instrument's measuring range. Blood VENOUS BLOOD / Unknown Venipuncture / Unknown 09/08/2024 1:19 AM EDT 09/08/2024 1:19 AM EDT Narrative [facility] - 09/08/2024 1:40 AM EDT Ingestion of tabatha doses of biotin (>5 mg/day) taken within 8 hours of drawing blood sample can interfere with this immunoassay test. us Shanae Elder MD CHEMISTRY ORDERABLES Final Re sult [facility] [address] [place] [address] * D-DIMER (09/07/2024 11:57 PM EDT) Only the most recent of2 resultswithin the time period is included. D-Dimer 372 <=500 ng/mL FEU 09/08/2024 12:16 AM EDT [facility] Comment:This is an automated latex enhanced immunoassay [...] PM EDT 09/08/2024 12:04 AM EDT Narrative [facility] - 09/08/2024 12:16 AM EDT For patients between the ages of 50 - 75, an age-adjusted D-Dimer cut-off in combination with non-high clinical probability may be considered for the exclusion of venous thromboembolism (calculation = age x 10). BERNADETTE Hughes, et al. [employer] Med. 2017;166(5):361-363 VALENCIA Buckley, et al. [employer] Med. 2015;(163):701-711. Miles Pagan et al. KAITLIN. 2014;(11):2919-1730. us Chloe GO HEMATOLOGY ORDERABLES Final Res ult [facility] [address] [facility] , [address] [place] [id number] * (ABNORMAL) HEPATIC FUNCTION PANEL (09/07/2024 10:46 PM EDT) Only the most recent of4 resultswithin the time period is included. Total Protein 7.4 6.4 - 8.3 gm/dL 09/07/2024 11:42 PM EDT [facility] Albumin 4.0 3.5 - 5.2 gm/dL 09/07/2024 11:42 PM EDT [facility] Bili Direct 0.8(H) 0.0 - 0.3 mg/dL 09/07/2024 11:42 PM EDT [facility] Bili Total 1.4(H) 0.2 - 1.3 mg/dL 09/07/2024 11:42 PM EDT [facility] AST 117(H) <=40 U/L 09/07/2024 11:42 PM EDT [facility] ALT 74(H) <=41 U/L 09/07/2024 11:42 PM EDT [facility] Alk Phos 222(H) 36 - 123 U/L 09/07/2024 11:42 PM EDT [facility] Blood VENOUS BLOOD / Unknown Venipuncture / Unknown 09/07/2024 10:46 PM EDT 09/07/2024 10:46 PM EDT us Chloe GO CHEMISTRY ORDERABLES Final Resu lt [facility] [address] [phone] * XR CHEST AP PORTABLE (09/07/2024 10:45 [...] contactthe office of the ordering clinician. us Shanae Elder MD IMG DIAGNOSTIC IMAGING ORDERA BLES Final Result * SEP URINALYSIS POC (08/13/2024 7:57 AM EDT) Only the most recent of3 resultswithin the time period is included. UA Color POC Yellow Color 08/13/2024 7:59 AM EDT [facility] Appear POC Clear Clear 08/13/2024 7:59 AM EDT [facility] Gluc POC Negative Negative mg/dL 08/13/2024 7:59 AM EDT [facility] Bili POC Negative Negative 08/13/2024 7:59 AM EDT [facility] Ketones POC Negative Negative mg/dL 08/13/2024 7:59 AM EDT [facility] SG POC 1.020 1.001 - 1.035 no units 08/13/2024 7:59 AM EDT [facility] Blood POC Negative Negative 08/13/2024 7:59 AM EDT [facility] pH POC 6.0 5.0 - 8.0 pH 08/13/2024 7:59 AM EDT [facility] Protein POC Negative Negative mg/dL 08/13/2024 7:59 AM EDT [facility] Urobilinogen POC 1.0 0.2, 1.0 08/13/2024 7:59 AM EDT [facility] Nitrite POC Negative Negative 08/13/2024 7:59 AM EDT [facility] Leuk Est POC Negative Negative 7:59 AM EDT [facility] Urine URINE SPECIMEN COLLECTION / Unknown 08/13/2024 7:57 AM EDT 08/13/2024 7:59 AM EDT us Shauna Guardado DEMAND PLANNING ANALYST POINT OF CARE TEST ORDER JUN Final Result [facility] [place] [address] * URINALYSIS (07/17/2024 3:01 PM EDT) Only the most recent of9 resultswithin the time period is included. UA Color Yellow 07/17/2024 8:20 PM EDT [facility] UA Appear Clear Clear 07/17/2024 8:20 PM EDT [facility] UA Glucose Trace (30-50 mg/dL) Negative mg/dL 07/17/2024 8:20 PM EDT [facility] UA Ketones Negative Negative mg/dL 07/17/2024 8:20 PM EDT [facility] UA Blood Negative Negative 07/17/2024 8:20 PM EDT [facility] UA pH 5.5 5.0 - 8.0 pH 07/17/2024 8:20 PM EDT [facility] UA Protein Negative Negative mg/dL 07/17/2024 8:20 PM EDT [facility] UA Urobilinogen Normal <=1 mg/dL 8:20 PM EDT [facility] UA Bili Negative Negative 07/17/2024 8:20 PM EDT [facility] UA Nitrite Negative Negative 07/17/2024 8:20 PM EDT [facility] UA Leuk Est Negative Negative 07/17/2024 8:20 PM EDT [facility] UA Spec Grav 1.020 1.001 - 1.035 no units 07/17/2024 8:20 PM EDT [facility] Comment:Reference range dmitry d for random specimens only. Urine URINE SPECIMEN OBTAINED VIA STRAIGHT CATHETER / Unknown 07/17/2024 3:01 PM EDT 07/17/2024 3:01 PM EDT us Yesi Junior MD URINE ORDERABLES Final Re sult [facility] [address] [facility] , [place] [address] * URINE CULTURE (NO STAIN) (07/17/2024 3:01 PM EDT) Only the most recent of6 resultswithin the time period is included. Culture No growth at 30 hours. 07/19/2024 6:17 AM EDT [facility] Urine URINE SPECIMEN OBTAINED VIA STRAIGHT CATHETER / Unknown 07/17/2024 3:01 PM EDT 07/17/2024 3:01 PM EDT us Yesi Junior MD MICROBIOLOGY - GENERAL OR DERABLES Final Result [facility] [address] [facility], [place] [address] * MM MAMMO DIGITAL KATIE SCREEN BILAT (07/12/2024 10:19 AM EDT) Anatomical Region Laterality Modality Breast Bilateral Mammography 07/12/2024 10:1 9 AM EDT Impressions 07/13/2024 7:56 AM EDT Negative ([id number]) RECOMMENDATION: Routine Screening Mammogram in 1 Year COMMENTS: Narrative 07/13/2024 7:56 AM EDT EXAM: MM MAMMO DIGITAL KATIE SCREEN BILAT EXAM DATE: 07/12/2024 10:19 AM INDICATION: Z12.31-Encounter for screening mammogram for malignant neoplasm of [id number]-CM COMPARISON STUDIES: Compared with prior studies the most recent being 01/01/2021 TISSUE DENSITY: There are scattered areas of fibroglandular density. FINDINGS: No mammographic evidence of malignancy. Procedure Note Belinda Rodriguez MD - 07/13/2024 EXAM: MM MAMMO DIGITAL KATIE SCREEN BILAT EXAM DATE: 07/12/2024 10:19 AM INDICATION: Z12.31-Encounter for screening mammogram for malignantneoplasm of [id number]-[id number]-CM COMPARISON STUDIES: Compared with prior studies the most recent being01/01/2021 TISSUE DENSITY: There are scattered areas of fibroglandular density. FINDINGS: No mammographic evidence of malignancy. IMPRESSION: Negative ([id number]-5) RECOMMENDATION: Routine Screening Mammogram in 1 Year COMMENTS: us Malinda Patterson MD IMG MAMMOGRAPHY ORDERAB LES Final Result * (ABNORMAL) LIPID PANEL REFLEX (07/12/2024 7:32 AM EDT) Only the most recent of15 resultswithin the time period is included. Cholesterol 177 <200 mg/dL 07/12/2024 2:33 PM EDT [facility] [employer] [facility] Comment: < 200 Desirable 200 - 239 Borderline High >= 240 High Triglyceride 127 <150 mg/dL 07/12/2024 2:33 PM EDT [facility], [facility] Comment: < 150 Normal 150 - 199 Borderline High 200 - 499 High >= 500 Very High HDL 54 >=40 mg/dL 07/12/2024 2:33 PM EDT [facility] Comment: > 60 Optimal 40 - 60 Acceptable < 40 Low LDL Calculated 101(H) <100 mg/dL 07/12/2024 2:33 PM EDT [facility] Non-HDL-C Calculated 123 <=129 mg/dL 07/12/2024 2:33 PM EDT [facility] Comment: <130 Desirable 130-159 Above Desirable 160-189 Borderline High 190-219 High >= 220 Very High Fasting Specimen? Yes None 024 2:33 PM EDT [facility] Blood VENOUS BLOOD / Unknown Venipuncture / Unknown 07/12/2024 7:32 AM EDT 07/12/2024 7:32 AM EDT us Marshall Ovalle MD CHEMISTRY ORDERABLES Final Re sult [facility] [address] [facility] [place] [address] [facility] [address] [place] [address] * THYROID STIMULATING HORMONE (07/12/2024 7:32 AM EDT) Only the most recent of10 resultswithin the time period is included. TSH 1.990 0.270 - 4.200 mcIU/mL 07/12/2024 2:33 PM EDT [facility] Blood VENOUS BLOOD / Unknown Venipuncture / Unknown 07/12/2024 7:32 AM EDT 07/12/2024 7:32 AM EDT Narrative [facility] - 07/12/2024 2:33 PM EDT Ingestion of tabatha doses of biotin (>5 mg/day) taken within 8 hours of drawing blood sample can interfere with this immunoassay test. Marshall Ovalle MD CHEMISTRY ORDERABLES Final Re sult Performing Organization Address [facility] de Phone Number [facility] [address] , [place] [address] * T4, FREE (THYROXINE) (07/12/2024 7:32 AM EDT) Only the most recent of9 resultswithin the time period is included. Free T4 1.33 0.80 - 1.80 ng/dL 07/12/2024 2:33 PM EDT [facility] Blood VENOUS BLOOD / Unknown Venipuncture / Unknown 07/12/2024 7:32 AM EDT 07/12/2024 7:32 AM EDT [facility] - 07/12/2024 2:33 PM EDT Ingestion of tabatha doses of biotin (>5 mg/day) taken within 8 hours of drawing blood sample can interfere with this immunoassay test. Marshall Ovalle MD CHEMISTRY ORDERABLES Final Re sult Performing Organization Address [facility] Phone Number [facility] [address] [place] [address], [place] [address] * SCRAP YARD WORKER CYTOLOGY REQUEST (PAP ONLY) (07/11/2024 11:41 AM EDT) Only the most recent of3 resultswithin the time period is included. CASE REPORT Gynecologic Cytology Report Case: [id number] Authorizing Provider: Malinda Patterson MD Collected: 07/11/2024 1141 Ordering Location: [facility] Received: 07/11/2024 1141 First Screen: Rafi Mcclellan, CT Specimen: LIQUID-BASED PAP - CERVICAL/ENDOCERV ICAL, Cervix, Endocervical 07/13/2024 9:41 AM EDT [facility] PAP FINAL DIAGNOSIS Negative for intraepithelial lesion or malignancy 07/13/2024 9:41 AM EDT [facility] at 0941 EDT MICROSCOPIC DESCRIPTION Microscopic examination is performed and the findings corroborate the diagnosis. 07/13/2024 9:41 AM EDT [facility] PAP SMEAR ADEQUACY Satisfactory for evaluation 07/13/2024 9:41 AM EDT [facility] ENDOCERVICAL T-ZONE Transformation zone absent. 07/13/2024 9:41 AM EDT [facility] EMBEDDED IMAGES 9:41 AM EDT [facility] PAP DISCLAIMER The Pap Smear is a screening test that aids in the detection of cervical cancer and cancer precursors. Both false positive and false negative results can occur. The test should be used at regular intervals, and positive results should be confirmed before definitive therapy. Processed using the ThinPrep Head Of Store Operations Automated cytology screening device ([employer]). 07/13/2024 9:41 AM EDT [facility] [employer] Prep ENDOCERVICAL STRUCTURE / Unknown 07/11/2024 11:41 AM EDT 07/11/2024 11:41 AM EDT Malinda Patterson MD CYTOLOGY ORDERAB[place] [address] * TRICHOMONAS VAGINALIS BY TMA (PAP PANEL) (07/11/2024 11:41 AM EDT) Trichomonas vaginalis by TMA Not Detected Not Detected 07/13/2024 3:04 AM EDT [facility] Thin Prep SPECIMEN FROM UTERINE CERVIX / Unknown 07/11/2024 11:41 AM EDT 07/11/2024 11:41 AM EDT Narrative [facility] - 07/13/2024 3:04 AM EDT Test methodology is infectious waste technician mediated amplification (TMA) using the Aptima Trichomonas vaginalis assay from [employer]. A negative result does not completely rule [...] on these sample types were determined by [facility]. Malinda Patterson MD MICROBIOLOGY - GENERAL ORDERABLES Final Result [facility] [address] [place] [address] , [address] [place], [place] [id number] * GC CHLAMYDIA THIN PREP (07/11/2024 11:41 AM EDT) Only the most recent of2 resultswithin the time period is included. Chlamydia trachomatis Not Detected Not Detected 07/12/2024 1:43 PM EDT [facility] Neisseria gonorrhoeae Not Detected Not Detected 07/12/2024 1:43 PM EDT [facility] [employer] SPECIMEN FROM UTERINE CERVIX / Unknown 07/11/2024 11:41 AM EDT 07/11/2024 11:41 AM EDT Narrative [facility] - 07/12/2024 1:43 PM EDT Testing methodology is infectious waste technician mediated amplification (TMA) using the Aptima Combo 2 assay from [employer]. A negative result does not completely rule [...] GENERAL ORDERABLES Final Result Performing Organization Address City/[facility] Co de Phone Number [facility] [address] [place] [address] , [place] [address] * HPV HIGH RISK WITH REFLEX TO GENOTYPE (07/11/2024 11:41 AM EDT) Only the most recent of2 resultswithin the time period is included. HPV HR Reflex Not Detected Not Detected 024 1:27 PM EDT [facility] [employer] SPECIMEN FROM UTERINE CERVIX / Unknown 07/11/2024 11:41 AM EDT 07/11/2024 11:41 AM EDT Narrative [facility] - 07/12/2024 1:27 PM EDT This test [...] GENERAL ORDERABLES Final Result Performing Organization Address [facility] Co de Phone Number [facility] [address] [facility] , [place] [address] * PT / INR (06/28/2024 2:25 PM EDT) Only the most recent of5 resultswithin the time period is included. PT 12.9 10.5 - 13.6 second(s) 06/28/2024 2:45 PM EDT [facility] INR 1.10 0.89 - 1.16 (ratio) 06/28/2024 2:45 PM EDT [facility] Comment: Level of Therapy Indications Target INR Range Standard Dose Treatment and prophylaxis of venous 2.0 - 3.0 thrombosis, pulmonary embolism High Dose High risk patients with mechanical 2.5 - 3.5 heart valves Blood VENOUS BLOOD / Unknown Venipuncture / Unknown 06/28/2024 2:25 PM EDT 06/28/2024 2:34 PM EDT Pam Dahl MD HEMATOLOGY ORDERABLES Final Result Performing Organization Address [facility] Co de Phone Number [facility] [address] [facility], [place] [address] * LACTIC ACID (06/28/2024 2:25 PM EDT) Only the most recent of3 resultswithin the time period is included. Pathologist [facility] Lactic Acid 1.0 0.5 - 1.9 mmol/L 06/28/2024 2:46 PM EDT [facility] Blood VENOUS BLOOD / Unknown Venipuncture / Unknown 06/28/2024 2:25 PM EDT 06/28/2024 2:32 PM EDT Pam Dahl MD CHEMISTRY ORDERABLES Final Result Performing Organization Address City/[facility] Co de Phone Number [facility] [address] [place] [phone] * (ABNORMAL) POCT GLUCOSE (12/05/2023 3:15 PM EST) Only the most recent of6 resultswithin the time period is included. Glucose 246(A) 60 - 200 MG/DL SEP OFFICE Lot Number [id number] SEP OFFICE Expiration Date 01-26-2024 SEP OFFICE SeriAl # SEP OFFICE Meter SEP OFFICE 12/05/2023 3:15 PM EST Malinda Patterson MD POINT OF CARE TEST JUANITO CRODERO Final Result Performing Organization Address [facility] Co de Phone Number SEP OFFICE * (ABNORMAL) [id number] A/B (11/23/2023 10:11 AM EST) Only the most recent of2 resultswithin the time period is included. Pathologist [facility] CORONAVIRUS [id number] Not Detected Not Detected 11/23/2023 10:42 AM EST [facility] Influenza A DNA Detected(A) Not Detected 11/23/2023 10:42 AM EST [facility] Influenza B DNA Not Detected Not Detected 11/23/2023 10:42 AM EST [facility] Swab BOTH ANTERIOR NARES / Unknown 11/23/2023 10:11 AM EST 11/23/2023 10:17 AM EST Narrative [facility] - 11/23/2023 10:42 AM EST This [...] and Patients: PABLITO Fact Sheet for Providers: https://www.fda.gov/media/866492/download PABLITO Fact Sheet for Patients: https://www.fda.gov/media/396021/download Jose Ramon Infante APRN MICROBIOLOGY - GENERAL ORDSwathi CORDERO Final Result Performing Organization Address [facility]/ZIP Co de Phone Number [facility] [address] [place] [phone] * XR CHEST PA AND LATERAL (11/23/2023 [...] DEVAN SARS ANTIGEN (09/23/2023 9:55 AM EST) Pathologist [facility] SARS Antigen Negative Negative SEP OFFICE Lot Number [id number] SEP OFFICE Expiration Date 06/20/24 SEP OFFICE SeriAl # SEP OFFICE Control Line Yes YES/NO SEP OFFICE 09/23/2023 9:55 AM EST Michaela Landon MD POINT OF CARE TEST ORDERABL ES Final Result SEP OFFICE * (ABNORMAL) MOLECULAR VAGINITIS PANEL (MVP) (06/21/2023 11:51 AM EDT) Bacterial Vaginosis Not Detected Not Detected 06/22/2023 12:52 PM EDT [facility] Comment:Normal/Balanced vagi nal microbiome. Nakaseomyces glabrata (previously [place] glabrata) Detected(A) Not Detected 06/22/2023 12:52 PM EDT [facility] Comment:C. glabrata is often RESISTANT TO AZOLE ANTIFUNGAL AGENTS - FLUCONAZOLE. [place] group Not Detected Not Detected 06/22/2023 12:52 PM EDT [facility] Comment:C. albicans, C. trop icalis, C. parapsilosis, and/or C. dubliniensis NOT detected. [place] krusei Not Detected Not Detected 06/22/2023 12:52 PM EDT [facility] Trichomonas vaginalis Not Detected Not Detected 06/22/2023 12:52 PM EDT [facility] Swab SPECIMEN FROM VAGINA / Unknown 06/21/2023 11:51 AM EDT 06/21/2023 11:51 AM EDT Narrative [facility] - 06/22/2023 12:52 PM EDT Test performed using the dELiAs MAX Vaginal Panel, a real-time polymerase chain (PCR) molecular nucleic acid amplification test. Malinda Patterson MD MICROBIOLOGY - GENERAL ORDERABLES Final Result [facility] [address] [facility], [address] [place] [phone] * TSH REFLEX (12/22/2022 10:18 AM EST) Only the most recent of11 resultswithin the time period is included. TSH Reflex 3.630 0.270 - 4.200 mcIU/mL 12/22/2022 3:05 PM EST [facility] Blood VENOUS BLOOD / Unknown Venipuncture / Unknown 12/22/2022 10:18 AM EST 12/22/2022 10:20 AM EST Narrative [facility] - 12/22/2022 3:05 PM EST Ingestion of tabatha doses of biotin (>5 mg/day) taken within 8 hours of drawing blood sample can interfere with this immunoassay test. Malinda Patterson MD CHEMISTRY ORDERABLES Fi nal Result Performing Organization Address [facility] Co de Phone Number [facility] [address] [facility], [place] [address] * POCT URINE MICROALBUMIN TELCOR (12/22/2022 9:54 AM EST) Only the most recent of2 resultswithin the time period is included. Albumin, Ur 30 mg/L 12/22/2022 9:57 AM EST [facility] Creat[facility] Urine 200 mg/dL 12/22/2022 9:57 AM EST [facility] Albumin/Creat Ratio <30 <30 mg/g 12/22/2022 9:57 AM EST [facility] URINE SPECIMEN COLLECTION / Unknown 12/22/2022 9:54 AM EST 12/22/2022 9:57 AM EST Malinda Patterson MD POINT OF CARE TEST ORDE RABLES Final Result Performing Organization Address [facility] Co de Phone Number [facility] YUMIKO FROST [address] [facility] [place] [address] * INTRAOP AIRWAY PLACEMENT (10/21/2022 1:35 PM EST) Narrative [facility] - 10/21/2022 1:35 PM EST Choe Darryn Iron, FLUE GAS ANALYST 10/21/2022 1:36 PM Intraop Airway Placement: Date/Time: 10/21/2022 1:35 PM Airway type: Nasal cannula salter Lacy Shaw MD ID ANESTHESIA Edited Re sult - Final Performing Organization Address [facility] Co de Phone Number [facility] [address] [place] [address] * GMED COLONOSCOPY (10/21/2022 1:20 PM EST) 10/21/2022 1:20 PM EST Impressions [facility] - 10/21/2022 1:52 PM EST Stool in the mid-transverse colon, hepatic flexure, ascending colon and cecum. Plan: - Poor prep in the right colon with solid stool - Repeat colonoscopy in 1 year This section is an excerpt of the full report. us Nicolas Rowland MD GI PROCEDURE ORDERABLES Deana l Result Performing Organization Address [facility]/ZIP Co de Phone Number [facility] [address] [place] [address] * IRIS DIABETIC RETINOPATHY EXAM (10/06/2022 10:12 AM EST) Retinopathy Exam Severity NORMAL [facility] Right Diabetic Retinopathy None [facility] Right Macular Edema None [facility] Right Other Retina None [facility] Right Eye Image Quality Gradable Image [facility] Left Diabetic Retinopathy None [facility] Left Macular Edema None [facility] Left Other Retina None [facility] LAB Left Eye Image Quality Gradable Image [facility] 10/06/2022 10:1 2 AM EST 10/06/2022 10:12 AM EST Impressions [facility] - 10/06/2022 2:05 PM EST Retinal Study Result for KRISTIN ESPINOZA, a 52 y/o, F (: 1970, ) presented to [facility] on 10-06-2022 for a retinal imaging [...] signed by Jacqueline English MD; ; Taxonomy: [id number] on 10-07-2022 01:05 [facility]. NOTE: Any pathology noted on this diabetic retinal evaluation should be confirmed by an appropriate ophthalmic examination. us Malinda Patterson MD OPHTHALMOLOGY SERVICES ORDERABLES Final Result Performing Organization Address [facility]/ZIP Co de Phone Number [facility] [address] [place] [address] * (ABNORMAL) VITAMIN D 25 HYDROXY (06/28/2022 11:56 AM EDT) Vit D 25 OH 18.9(L) 30.0 - 150.0 ng/mL 06/28/2022 7:38 PM EDT [facility] Comment: Preferred: >= 30 ng/mL Insufficient: 21-29 [...] Patterson MD CHEMISTRY ORDERABLES Fi nal Result [facility] [address] [place] [address] , [place] [address] * CT HEAD WO CONTRAST (12/18/2021 7:46 [...] please contactthe office of the ordering clinician. Dev Sam MD IM CT ORDERABLES Final Resul t * CORONAVIRUS 2019 (12/18/2021 6:44 PM EST) [facility] CORONAVIRUS [id number] Not Detected Not Detected 12/18/2021 7:08 PM EST [facility] Comment: Caution should be exercised [...] and Patients: PABLITO Fact Sheet for Providers: https://www.fda.gov/media/478808/download PABLITO Fact Sheet for Patients: https://www.fda.gov/media/617793/download Test is performed on the Vivint PABLITO platform under the FDA's Emergency Use Authorization (EUA). Performed at [address] [address] CLIA [id number] Swab BOTH ANTERIOR NARES / Unknown 12/18/2021 6:44 PM EST 12/18/2021 6:47 PM EST us Dev Sam MD MICROBIOLOGY - GENERAL ORDERA BLES Final Result Performing Organization Address City/[facility]/ZIP Co de Phone Number [facility] [address] [place] [id number] * (ABNORMAL) C-REACTIVE PROTEIN (09/25/2021 6:25 AM EST) Only the most recent of2 resultswithin the time period is included. CRP 58.14(H) <=5.00 mg/L 09/25/2021 9:54 AM EST [facility] Blood VENOUS BLOOD / Unknown Venipuncture / Unknown 09/25/2021 6:25 AM EST 09/25/2021 7:33 AM EST us Latonya Washington MD CHEMISTRY ORDERABLES Final Re sult [facility] [address] [place] [address], [address] [place] [phone] * CT ANGIOGRAM PULMONARY W CONTRAST (09/24/2021 [...] Isovue 370 IV contrast as recorded in EPIC. 2-D multiplanar reconstructions and 3-D MIP reconstructions [...] using Isovue 370 IVcontrast as recorded in EPIC. 2-D multiplanar reconstructions and 3-D MIP reconstructions [...] please contactthe office of the ordering clinician. Latonya Washington MD IMG CT ORDERABLES Final Resul t * REPEAT LACTIC ACID (09/24/2021 7:35 AM EST) Only the most recent of3 resultswithin the time period is included. [facility] Lactic Acid 0.9 0.5 - 1.9 mmol/L 09/24/2021 8:04 AM EST [facility] Blood VENOUS BLOOD / Unknown Venipuncture / Unknown 09/24/2021 7:35 AM EST 09/24/2021 7:47 AM EST Golden Rodriguez MD CHEMISTRY ORDERABLES Final Result [facility] [address] [place] [address] , [place] [address] * BLOOD CULTURE (NO STAIN) (09/24/2021 4:59 AM EST) Only the most recent of6 resultswithin the time period is included. [facility] Culture Result No Growth at 120 hours. BLOOD CULTURE (NO STAIN) 09/29/2021 10:00 AM EST [facility] Blood VENOUS BLOOD / Unknown Venipuncture / Unknown 09/24/2021 4:59 AM EST 09/24/2021 5:06 AM EST Golden Rodriguez MD MICROBIOLOGY - [facility] Final Result Performing Organization Address City/[facility]/ZIP Co de Phone Number [facility] [address] [facility] , [place] [address] * PROCALCITONIN (09/24/2021 4:50 AM EST) Only the most recent of2 resultswithin the time period is included. Procalcitonin 0.13 <=0.49 ng/mL 09/24/2021 5:33 AM EST [facility] Blood VENOUS BLOOD / Unknown Venipuncture / Unknown 09/24/2021 4:50 AM EST 09/24/2021 5:05 AM EST Narrative [facility] - 09/24/2021 5:33 AM EST Procalcitonin <0.50 [...] Golden Rodriguez MD CHEMISTRY ORDERABLES Final Result [facility] [address] [facility] , [place] [address] * (ABNORMAL) BLOOD GAS, VENOUS (09/24/2021 2:39 AM EST) Only the most recent of2 resultswithin the time period is included. pH Venous 7.38 7.32 - 7.42 pH 09/24/2021 2:50 AM EST [facility] pCO2 Venous 45 41 - 51 mmHg 09/24/2021 2:50 AM EST [facility] pO2 Venous <42(H) 25 - 40 mmHg 09/24/2021 2:50 AM EST [facility] Comment:The peripheral venou s blood gas oxygen level (PvO2) is not clinically useful and PvO2 levels <42 mmHg in venous blood gases are below the analytical measuring range for our blood gas instrumentation. Base Excess Shekhar 0.8 mmol/L 2:50 AM EST [facility] Hco3 Venous 25.6 24.0 - 28.0 mmol/L 09/24/2021 2:50 AM EST [facility] CO2 Total Shekhar 24(L) 25 - 29 mmol/L 09/24/2021 2:50 AM EST [facility] O2 Sat. Venous 36.1(L) 40.0 - 70.0 % 09/24/2021 2:50 AM EST [facility] Blood VENOUS BLOOD / Unknown Venipuncture / Unknown 09/24/2021 2:39 AM EST 09/24/2021 2:45 AM EST Golden Rodriguez MD CHEMISTRY ORDERABLES Final Result [facility] [address] [facility] , [place] [address] * FERRITIN (09/24/2021 2:39 AM EST) Ferritin 116 13 - 150 ng/mL 09/24/2021 6:04 AM EST [facility] Blood VENOUS BLOOD / Unknown Venipuncture / Unknown 09/24/2021 2:39 AM EST 09/24/2021 2:50 AM EST Narrative [facility] - 09/24/2021 6:04 AM EST Ingestion of tabatha doses of biotin (>5 mg/day) taken within 8 hours of drawing blood sample can interfere with this immunoassay test. us Golden Rodriguez MD CHEMISTRY ORDERABLES Final Result Performing Organization Address City/[facility]/ZIP Co de Phone Number [facility] [address] [facility], [place] [address] * (ABNORMAL) CORONAVIRUS 2019 POCT (09/21/2021 2:06 AM EST) Pathologist [facility] COV19 RNA POCT Positive(A A) Negative 09/21/2021 2:31 AM EST [facility] Swab NASAL / Unknown 09/21/2021 2 :06 AM EST 09/21/2021 2:13 AM EST [facility] - 09/21/2021 2:31 AM EST The [...] management. Bartlett ID NOW Provider Fact Sheet: https://www.fda.gov/media/405771/download Bartlett ID NOW Patient Fact Sheet: https://www.fda.gov/media/606716/download us Dc Sherman MD MICROBIOLOGY - GENERAL JUANITO CORDERO Final Result Performing Organization Address [facility]/ZIP Co de Phone Number [facility] [address] [place] [address] * EC ECHOCARDIOGRAM COMPLETE WITH BUBBLE STUDY (03/28/2021 12:06 PM EDT) Ejection Fraction 60-65 % PYRAMIS Anatomical Region [...] done by the reviewing physician on a Conisus workstation, with one or more of the [...] postprocessing done by thereviewing physician on a [employer]isus workstation, with one or more of the [...] contactthe office of the ordering clinician. us Earnestine Joe NP IMG CT ORDERABLES Final [...] please contactthe office of the ordering clinician. Shar Sandhu MD [facility] MRI ORDERABLES Final Res ult * CT [...] of a suspected large vessel occlusion (LVO). Starla Harris MD IM CT ORDERABLES Final Res ult * CT [...] PM. 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 Comparison [...] 10:43 AM HISTORY: K43.2-Incisional hernia without obstruction [id number] PROCEDURE: CT abdomen pelvis with contrast. Comparison [...] pathology. No evidence of recurrent or newhernia. us Angela Merida MD IMG CT ORDERABLES Final Result * CREATININE ISTAT (01/07/2021 10:38 AM EST) Creatinine-iST AT 0.7 0.6 - 1.3 mg/dL 01/07/2021 10:40 AM EST [facility] Blood BLOOD SPECIMEN / Unknown 01/07/2021 10:38 AM EST 01/07/2021 10:40 AM EST us Angela Merida MD POINT OF CARE TEST ORDERABLES Final Result Performing Organization Address City/State/[facility] Co de Phone Number [facility] [address] [place] [address] * MM MAMMO DIGITAL SCREENING W CAD BILAT (01/01/2021 1:09 PM EST) Only the most recent of6 resultswithin the time period is included. Anatomical Region Laterality Modality Breast Bilateral Mammography 01/01/2021 1:30 PM EST Impressions 01/01/2021 1:30 PM EST Negative ([id number]) ~ RECOMMENDATION: Routine screening mammogram in 1 [...] the next mammogram, in accordance with the [employer] and the Society of Breast Imaging recommendations. The mammogram was reviewed by a Radiologist and CAD. Narrative 01/01/2021 1:30 PM EST Procedure:MM MAMMO DIGITAL SCREENING W CAD BILAT ~ Reason for exam: screening, asymptomatic. Z12.31-Encounter for screening mammogram for malignant neoplasm of [id number]-MUC-89-CM Performed by: RT Ricci ~ MM MAMMO [...] for screening mammogram for malignant neoplasm of xdcfdx-GPG-20-CM Performed by: RT Ricci ~ MM MAMMO DIG SCREEN CAD BILAT Bilateral CC and MLO view(s) were taken. Technologist: RT Ricci There are scattered fibroglandular densities. Prior study comparison: Compared with prior studies the most recentbeing 02/14/19, 01/18/18 No suspicious mass, architectural distortion, or microcalcifications. No mammographic evidence of malignancy. ~ IMPRESSION: Negative ([id number]-4) ~ RECOMMENDATION: Routine screening mammogram in 1 [...] the next mammogram, in accordance with the [employer] and the Society of Breast Imaging recommendations. The mammogram was reviewed by a Radiologist and CAD. us Malinda Patterson MD IMG MAMMOGRAPHY ORDERAB LES Final Result * POCT URINALYSIS AUTOMATED (11/12/2020 10:48 AM EST) Only the most recent of3 resultswithin the time period is included. Color, UA yellow CLEAR,YEL LOW,MAURY EYENNIFER SEP OFFICE Clarity, UA clear CLEAR,ROC UDY SEP OFFICE Glucose, UA neg G/DL% SEP OFFICE Bilirubin, UA neg POS/NEG SEP OFFICE Ketones, UA neg POS/NEG SEP television production clerk Grav, UA 1.030 1.001 - 1.035 G/DL [...] Expiration Date 02/05/2021 SEP OFFICE [facility] # [facility] Urine 11/12/2020 10:4 8 AM EST Malinda Patterson MD POINT OF CARE TEST ORDE RABLES Final Result Performing Organization Address [facility] Phone Number [facility] * POCT MICROALBUMIN (11/12/2020 10:48 AM EST) Only the most recent of8 resultswithin the time period is included. Albumin, Ur normal <=31 MG/L SEP OFFICE Lot Number [id number] SEP OFFICE Expiration Date 08/07/2021 SEP OFFICE SeriAl # [facility] Urine 11/12/2020 10:4 8 AM EST Malinda Patterson MD POINT OF CARE TEST ORDE RABLES Final Result Performing Organization Address [facility] Phone Number [facility] * XR FOOT LEFT AP LATERAL [...] LATERAL AND OBLIQUE Clinical: M79.672-Pain in left mfyq-ZQI-15-CM Procedure Note Jim Darden MD - 04/29/2020 XR FOOT LEFT AP LATERAL AND OBLIQUE Clinical: M79.672-Pain in left caur-NCN-34-CM IMPRESSION: Moderate mid foot degenerative osteoarthritis. No fracture. Bernadette Rangel DEMAND PLANNING ANALYST IMG DIAGNOSTIC IMAGING ORD ERABLES Final Result * (ABNORMAL) PDM, GABAPENTIN, QN, URINE-QUEST (05/31/2019 8:55 PM EDT) Gabapentin Lvl >182903(H ) <1000 ng/mL [facility] Comment:See Note 1 COMMENTS [facility] Comment: See Note 3 Note 1 This test was developed and its analytical performance characteristics have been determined by [facility]. It has not been cleared or approved [...] or to monitor progress of medical conditions. [facility] comments are: - present when drug test results may be the result of metabolism of one or more drugs or when results are inconsistent with prescribed medication(s) listed. - may be blank when drug results are consistent with prescribed medication(s) listed. For assistance with interpreting these drug results, please contact a [facility] Toxicology Specialist: [phone] ( ), M-F, 8am-6pm EST. Note 3 This drug testing is for medical treatment only. Analysis was performed as non-forensic testing and these results should be used only by healthcare providers to render diagnosis or treatment, or to monitor progress of medical conditions. For assistance with interpreting these drug results, please contact a [facility] T[facility]ology Specialist: [phone] ( ), M-F, 8am-6pm EST. 05/31/2019 8:55 PM EDT 06/01/2019 4:24 PM EDT Malinda Patterson MD [facility]-PDM ORDERABLE (NO N-SEH) Final Result [facility] [address] [place] [address] * HB-1 CUSTOM UDS PANEL-Cloudary (05/31/2019 8:55 PM EDT) Prescribed Drug 1 Gabapentin [facility] Ritalinic Acid NEGATIVE <100 ng/mL [facility] Comment:See Note 1 medMATCH Ritalinic Acid CONSISTENT [facility] medMatch Comments [facility] Comment:See Note 2 Prescribed Drug 1 Gabapentin [facility] 6-Acetylmorphine,GC /MS NEGATIVE <10 ng/mL [facility] medMATCH 6 Acetylmorphine CONSISTENT [facility] medMatch Comments [facility] Comment:See Note 2 Prescribed Drug 1 Gabapentin [facility] Creatinine, Urine 129.7 > or = 20.0 mg/dL [facility] UA Spec Grav 1.025 > or = 1.003 [facility] UA pH 6.6 4.5 - 9.0 [facility] Oxidant NEGATIVE <200 mcg/mL [facility] Amphetamines NEGATIVE <500 ng/mL [facility] medMATCH Amphetamines CONSISTENT [facility] Barbiturates NEGATIVE <300 ng/mL [facility] medMATCH Barbiturates CONSISTENT [facility] Benzodiazepines NEGATIVE <100 ng/mL [facility] medMATCH Benzodiazepines CONSISTENT [facility] Marijuana Metabolite NEGATIVE <20 ng/mL [facility] medMATCH Marijuana Metab CONSISTENT [facility] Cocaine Metabolite NEGATIVE <150 ng/mL [facility]MATCH Cocaine Metab CONSISTENT [facility] Methadone NEGATIVE <100 ng/mL [facility] medMATCH Methadone CONSISTENT [facility] Opiates NEGATIVE <100 ng/mL [facility] medMATCH Opiates CONSISTENT [facility] Oxycodone NEGATIVE <100 ng/mL [facility] medMATCH Oxycodone CONSISTENT [facility] medMatch Comments [facility] Comment:See Note 2 05/31/2019 8:55 PM EDT 06/01/2019 4:24 PM EDT Malinda Patterson MD [facility]-PDM ORDERABLE (NO N-SEH) Final Result [facility] [address] [place] [address] [facility] [address] [place] [address] * HPV HIGH RISK (02/26/2019 12:27 PM EDT) Only the most recent of2 resultswithin the time period is included. HPV HR Not Detected Not Detected 02/27/2019 2:47 AM EDT [facility] Thin Prep SPECIMEN FROM UTERINE CERVIX / Unknown 02/26/2019 12:27 PM EDT 02/26/2019 12:27 PM EDT Narrative [facility] - 02/27/2019 2:47 AM EDT This test [...] GENERAL ORDERABLES Final Result Performing Organization Address City/[facility]/ZIP Co de Phone Number [facility] [address] [facility] , [place] [address] * HM DIABETES EYE EXAM (02/09/2019) Left Diabetic Retinopathy Not Present Present/Not Present SEP OFFICE Right Diabetic Retinopathy Not Present Present/Not Present SEP OFFICE Reena Kailash OD HEALTH MAINTENANCE Final Re sult Performing Organization Address [facility] Co de Phone Number SEP OFFICE * TRICHOMONAS VAGINALIS BY TMA (02/07/2019 11:51 AM EDT) Trichomonas vaginalis by TMA Not Detected Not Detected 02/08/2019 2:46 AM EDT [facility] Thin Prep ENDOCERVICAL STRUCTURE / Unknown 02/07/2019 11:51 AM EDT 02/07/2019 11:51 AM EDT Narrative [facility] - 02/08/2019 2:46 AM EDT Test methodology is infectious waste technician mediated amplification (TMA) using the Aptima Trichomonas vaginalis assay from [employer]. A negative result does not completely rule [...] on these sample types were determined by [facility]. Malinda Patterson MD MICROBIOLOGY - GENERAL ORDERABLES Final Result Performing Organization Address City/[facility]/ZIP Co de Phone Number [facility] [address] [facility] , [place] [address] * SMEAR REVIEW (06/28/2017 9:45 AM EDT) Only the most recent of3 resultswithin the time period is included. Pathologist [facility] RBC Morph Microcytic [facility] Aniso Slight [facility] Poik Moderate [facility] Polychrom Slight [facility] Ovalocyte Moderate [facility] Acanthocyte Occasional [facility] Olimpia Cell Occasional [facility] Crenated Cell Moderate [facility] Teardrop Cell Occasional [facility] Blood specimen (specimen) 06/28/2017 9:45 AM EDT 06/28/2017 1:55 PM EDT Malinda Patterson MD HEMATOLOGY ORDERABLES F inal Result Performing Organization Address [facility] [place] [address] * LDL, CALCULATED (06/28/2017 9:45 AM EDT) Only the most recent of7 resultswithin the time period is included. Pathologist [facility] LDL Calculated 88 <=100 mg/dL [facility] Comment: < 100 Optimal 100 - 129 Near or above optimal 130 - 159 Borderline High 160 - 189 High >= 190 Very High Blood specimen (specimen) 06/28/2017 9:45 AM EDT 06/28/2017 1:54 PM EDT Malinda Patterson MD CHEMISTRY ORDERABLES Fi nal Result Performing Organization Address [facility] [place] [address] * DIFFERENTIAL (06/28/2017 9:45 AM EDT) Only the most recent of17 resultswithin the time period is included. Pathologist [facility] Neut Percent 60.9 % [facility] Lymph Percent 31.5 % [facility] [place] Percent 4.7 % [facility] Eos Percent 2.4 % [facility] Baso Percent 0.5 % [facility] Neut# 6.4 1.8 - 7.7 x10(3)/[facility] LABORATORY Lymph# 3.3 0.6 - 4.8 x10(3)/[facility] [place]# 0.5 0.0 - 1.3 x10(3)/[facility] Eos# 0.3 0.0 - 0.5 x10(3)/[facility] Baso# 0.1 0.0 - 0.2 x10(3)/[facility] Blood specimen (specimen) 06/28/2017 9:45 AM EDT 06/28/2017 1:55 PM EDT us Malinda Patterson MD HEMATOLOGY ORDERABLES F inal Result Performing Organization Address City/[facility]/[place] [address] * GMED COLONOSCOPY (01/18/2017 12:20 PM EDT) 01/18/2017 12:2 0 PM EDT us Malgorzata Hunt MD GI PROCEDURE ORDERABLES Final Result Performing Organization Address City/[facility]/ZIP Co de Phone Number [facility] [place] [address] [phone] * GMED COLONOSCOPY (01/18/2017 12:20 PM EDT) 01/18/2017 12:2 0 PM EDT Narrative [facility] - 01/18/2017 12:20 PM EDT [facility] [address] [place] [address] Colonoscopy Report Date: 01/18/2017 12:20 PM Patient Name: KRISTIN ESPINOZA Endoscopist(s): Malgorzata Hunt MD Gender: Female (age): 1970 (46) Instrument(s): C-10([id number]) Referring Physician: MALINDA PATTERSON MD [address], [place] [address] (phone) (fax) Anesthesia Provider: Nader Merida CRNA- [facility] (Nurse table cut off saw operator) Nurse(s): Jacqueline Heredia RN, BSN (Intra-Procedure) Charity Monaco RN (Pre-Procedure) Key Beltrán RN, BSN (Post-Procedure) ASA Class: P3 - [...] IV sedation was administered by a nurse table cut off saw operator / anesthesiologist. Continuous pulse oximetry, cardiac monitoring [...] 01/18/2017 12:47:08 PM by Malgorzata Hunt MD Malgorzata Hunt MD GI PROCEDURE ORDERABLES Final Result Performing Organization Address City/[facility]/ZIP Co de Phone Number [facility] [address] [place] [address] * PROGESTERONE LEVEL (09/12/2015 12:19 PM EST) Progesterone Lvl 1.18 ng/mL [facility] Comment: Suggested Reference Ranges (ng/mL) Follicular Phase 0.2 - 1.5 Luteal Phase 1.7 - 27.0 Postmenopause 0.1 - 0.8 Blood specimen (specimen) UPPER LIMB STRUCTURE / Unknown 09/12/2015 12:19 PM EST 09/12/2015 1:46 PM EST Malinda Patterson MD CHEMISTRY ORDERABLES Fi nal Result Performing Organization Address City/[facility]/ZIP Co de Phone Number [facility] [address] [place] [address] * ESTRADIOL LEVEL (09/12/2015 12:19 PM EST) Estradiol Lvl 27 pg/mL [facility] Comment: Follicular phase 12.5 - 166 pg/mL Ovulation phase 85.8 - 498 pg/mL Luteal Phase 43.8 - 211 pg/mL Postmenopause 0 - 54.7 pg/mL Males 7.63 - 42.6 pg/mL Blood specimen (specimen) UPPER LIMB STRUCTURE / Unknown 09/12/2015 12:19 PM EST 09/12/2015 1:46 PM EST us Malinda Patterson MD CHEMISTRY ORDERABLES Fi nal Result Performing Organization Address [facility] Co de Phone Number [facility] [address] [place] [address] * CK-MB (07/31/2015 1:56 PM EDT) Only the most recent of3 resultswithin the time period is included. CK MB <1.00 <=2.88 ng/mL [facility] Blood specimen (specimen) UPPER LIMB STRUCTURE / Unknown 07/31/2015 1:56 PM EDT 07/31/2015 2:15 PM EDT Jhon Wagner DO CHEMISTRY ORDERABLES Final Resu lt Performing Organization Address [facility] Co de Phone Number [facility] [address] [place] [address] * PLATELET COUNT (07/31/2015 1:47 PM EDT) Pathologist [facility] Platelet 377 144 - 423 x10(3)/mcL [facility] MPV 10.8 6.8 - 10.8 fL [facility] Blood specimen (specimen) UPPER LIMB STRUCTURE / Unknown 07/31/2015 1:47 PM EDT 07/31/2015 1:[address] us [address] MD HEMATOLOGY ORDERABLES Final Result Performing Organization Address [facility] Co de Phone Number [facility] [address] [place] [address] * TROPONIN-T (07/03/2015 9:37 PM EDT) Only the most recent of2 resultswithin the time period is included. Troponin-T <0.01 <=0.02 ng/mL [facility] Comment: < 0.03 No detectable myocardial injury 0.03 - 0.10 Possible myocardial injury > 0.10 Indicative of myocardial injury Blood specimen (specimen) 07/03/2015 9:37 PM EDT 07/03/2015 9:53 PM EDT us Dc Sherman MD CHEMISTRY ORDERABLES Final Result Performing Organization Address [facility] Co de Phone Number [facility] [address] [place] [address] * HCG QUALITATIVE (07/03/2015 7:56 PM EDT) HCG QUAL Negative [facility] Blood specimen (specimen) 07/03/2015 7:56 PM EDT 07/03/2015 8:01 PM EDT us Dc Sherman MD CHEMISTRY ORDERABLES Edited Result - Final Performing Organization Address [facility] Co de Phone Number [facility] [address] [place] [address] * SCRAP YARD WORKER CYTOLOGY REPORT (05/15/2015 9:23 PM EDT) Truck Guard Cytology Report PATIENT NAME:KRISTIN ESPINOZA Truck Guard Cytology Report Accession Number Collected Date/Time Received Date/Time [id number] 05/15/15 21:23 EDT 05/15/15 22:24 EDT GY [...] before definitive therapy. Processed using the ThinPrep Head Of Store Operations automated cytology screening device ([employer]). Power Tool Repair Technician: LINDA 05/19/2015 Completed by: HENRIETTA Ugarte (Electronically signed by) 05/19/2015 [facility] Laboratory [facility] 05/15/2015 9:23 PM EDT Malinda Patterson MD PATHOLOGY ORDERABLES Fi nal Result Performing Organization Address City/[facility] Co de Phone Number [facility] [address] [place] [address] * (ABNORMAL) POCT URINALYSIS DIPSTICK (12/02/2014 11:00 AM EST) Only the most recent of8 resultswithin the time period is included. Color, UA Clear, Yellow, Machias, Rust SEP OFF[facility] Clarity, UA Clear, Cloudy [facility] Glucose, UA 500 g/dl% [facility] Bilirubin, UA sm+ Pos/Neg SEP OFFICE Ketones, UA neg Pos/Neg SEP television production clerk Grav, UA 1.030 1.001 - 1.035 g/dl [...] JUANITO CORDERO Final Result Performing Organization Address [facility] Co de Phone Number SEP OFFICE * XR HAND RIGHT PA LATERAL AND OBLIQUE (04/21/2014 2:13 PM EDT) Anatomical Region Laterality Modality Hand Radiographic Loan ging 04/21/2014 2:13 PM EDT Impressions 04/21/2014 2:26 PM EDT IMPRESSION: No acute bony abnormality identified. Narrative 04/21/2014 2:26 PM EDT XR HAND RIGHT PA LATERAL AND OBLIQUE Apr 21, 2014 02:14:15 PM HISTORY: 729.5-Pain in cben-CFC-2-CM. Compare: with previous 08/12/2007 exam. There is [...] 21, 2014 02:14:15 PM HISTORY: 729.5-Pain in umpu-MIZ-6-CM. Compare: with previous 08/12/2007exam. There is deformity of the fourth distal phalanx, compatible with priortrauma which was acute at time of previous 2006 exam. No fracture or acute bony amount isidentified. No dislocation is seen. No bony erosive changes. IMPRESSION: No acute bony abnormality identified. us Yuli Sanders DO IMG DIAGNOSTIC IMAGING ORD ERABLES Final Result * BETA HCG QUALITATIVE KIT TEST (12/19/2013 2:45 PM EST) Only the most recent of2 resultswithin the time period is included. Beta hCG Qual Negative Blood specimen (specimen) UPPER LIMB STRUCTURE / Unknown 12/19/2013 2:45 PM EST 12/19/2013 2:55 PM EST Stephen Earl DO CHEMISTRY ORDERABLES Final Resu [...] identified, ending at the inferior L1 level. [id number] through L3-L4 intervertebral disc spaces are normal. [...] at this time. us Contreras Casper MD [facility] MRI ORDERABLES Final Result * SCANNED PRE/POST [...] 10/08/2013 by . us Soheila Tirado MD IMG CT ORDERABLES Final Result * SERUM TEST (10/08/2013 12:05 AM EST) Only the most recent of5 resultswithin the time period is included. Test Negative [facility] Blood specimen (specimen) 10/08/2013 12:05 AM EST 10/08/2013 12:05 AM EST Soheila Tirado MD CHEMISTRY ORDERABLES Edited Re sult - Final [facility] [address] [place] [address] * SCANNED RADIOLOGY REPORT (04/27/2013 2:25 PM [...] fracture. No dislocation. Moderate patellofemoral degenerative osteoarthritis Contreras Casper MD [facility] DIAGNOSTIC IMAGING ORDERABLE S Final Result * [...] Moderate patellofemoral degenerative arthritis. Contreras Casper MD [facility] DIAGNOSTIC IMAGING ORDERABLE S Final Result * (ABNORMAL) URINALYSIS POC (01/17/2013 5:02 PM EDT) Pathologist [facility] UA Color POC Venus [facility] UA Appear POC Cloudy(A) Clear [facility] UA Gluc POC Negative Negative [facility] UA Ketones POC Trace (5mg/dl)(A) Negative [facility] UA Blood POC Negative Negative [facility] UA pH POC 6.0 5.0 - 8.0 [facility] UA Protein POC 100 mg/dl(A) Negative [facility] UA Urobilinogen POC 0.2 mg/dl <=1 mg/dl [facility] UA Nitrite POC Negative Negative [facility] UA Leuk Est POC Negative Negative [facility] UA SG POC >=1.030 1.001 - 1.035 [facility] Urine specimen (specimen) 01/17/2013 5:02 PM EDT 01/17/2013 5:02 PM EDT Clif Hu MD POINT OF CARE TEST ORDERABLES F inal Result [facility] [address] [place] [address] * XR ANKLE RIGHT AP LATERAL AND [...] spur. Voice clip sent to the ER. Earnestine Marks MD IMG DIAGNOSTIC IMAGING ORDSwathi CORDERO Final Result * .CHL/GC GENITAL RESULTS (11/15/2012 6:31 PM EST) Only the most recent of2 resultswithin the time period is included. C. trachomatis/N. gonorrhoeae Specimen Genital [facility] Comment: Extraction of genetic material from urine and Thin Prep samples was performed using a method that was developed and validated in the performing laboratory. Detailed methodology is available upon request. Chlamydia trachomatis Negative [facility] Neisseria gonorrhoeae Negative [facility] Specimen from genital system (specimen) 11/15/2012 6:31 PM EST 11/15/2012 6:31 PM EST us Shauna Ford MD MICROBIOLOGY - GENERAL ORD ERABLES Edited Performing Organization Address City/[facility] Co de Phone Number [facility] [address] [place] [address] * TRICHOMONAS AG (11/15/2012 6:31 PM EST) Only the most recent of2 resultswithin the time period is included. Trichomonas Ag Negative [facility] Vaginal swab (specimen) URINARY BLADDER STRUCTURE / Unknown 11/15/2012 6:31 PM EST 11/15/2012 6:31 PM EST us Shauna Ford MD MICROBIOLOGY - GENERAL ORD ERABLES Final Result Performing Organization Address [facility] de Phone Number [facility] [address] [place] [address] * GRAM STAIN (11/15/2012 6:31 PM EST) Only the most recent of2 resultswithin the time period is included. Final Few WBC's Abundant Gram positive rods Abundant epithelial cells [facility] Cervical swab (specimen) URINARY BLADDER STRUCTURE / Unknown 11/15/2012 6:31 PM EST 11/15/2012 6:34 PM EST us Shauna Ford MD MICROBIOLOGY - GENERAL ORD ERABLES Final Result Performing Organization Address [facility] Co de Phone Number [facility] [address] [place] [address] * US PELVIS NON OB COMPLETE (10/10/2012 [...] Simple right ovarian cyst measuring 2.3 cm. us Jaquelin Bal MD [facility] US ORDERABLES Final Resul t * XR [...] lesion is seen. Procedure Note Dc Reyes W - 10/11/2011 Lumbar spine 3 views 10/11/2011 [...] Decreased uterine size. No evidence of complication. us Beau Paz MD IMG MRI ORDERABLES Final Resul t * TROPONIN-I (08/27/2011 9:19 AM EDT) Only the most recent of6 resultswithin the time period is included. Troponin-I <0.01 <=0.06 ng/mL [facility] Comment:Reference range revi sed 08/12/11. Blood specimen (specimen) UPPER LIMB STRUCTURE / Unknown 08/27/2011 9:19 AM EDT 08/27/2011 9:23 AM EDT Heri Figueroa MD CHEMISTRY ORDERABLES Final Resu lt Performing Organization Address [facility] Co de Phone Number [facility] [address] [place] [address] * PARTIAL THROMBOPLASTIN TIME (08/27/2011 2:44 AM EDT) Only the most recent of2 resultswithin the time period is included. Pathologist [facility] PTT 32.4 23.6 - 35.1 second(s) [facility] Comment: The aPTT is no longer [...] 2:44 AM EDT 08/27/2011 3:00 AM EDT Heri Figueroa MD HEMATOLOGY ORDERABLES Final Res ult Performing Organization Address [facility] Co de Phone Number [facility] [address] [place] [address] * MAGNESIUM LEVEL (08/27/2011 2:44 AM EDT) Only the most recent of2 resultswithin the time period is included. Magnesium 1.9 1.6 - 2.2 mg/dL [facility] Blood specimen (specimen) UPPER LIMB STRUCTURE / Unknown 08/27/2011 2:44 AM EDT 08/27/2011 3:09 AM EDT Heri Figueora MD CHEMISTRY ORDERABLES Final Resu lt Performing Organization Address [facility] Co de Phone Number [facility] [address] [place] [address] * CREATININE (08/27/2011 2:44 AM EDT) Only the most recent of2 resultswithin the time period is included. Creatinine 0.8 0.6 - 1.0 mg/dL [facility] GFR Afr Am >60 [facility] Comment: GFR is estimated using creatinine, [...] or less GFR Non Afr Am >60 [facility] Blood specimen (specimen) UPPER LIMB STRUCTURE / Unknown 08/27/2011 2:44 AM EDT 08/27/2011 3:13 PM EDT Narrative [facility] - 08/27/2011 4:07 PM EDT Order ONLY if pt. Is 65 years or older, has abnormal kidney function, has only one kidney or if pt. is diabetic. Anna Marie Verdugo DO CHEMISTRY ORDERABLES Final Resul t Performing Organization Address [facility] Co de Phone Number [facility] [address] [place] [id number] * US GALLBLADDER (08/02/2011 11:43 AM EDT) [...] measures 2 mm. Procedure Note Jim Darden R - 08/02/2011 RIGHT UPPER QUADRANT ULTRASOUND HISTORY: Pressure in chest. FINDINGS: The liver is normal in size. It is diffusely increased in attenuation,likely representing mild fatty infiltration. The gallbladder is unremarkable. The common bile ductmeasures 2 mm. IMPRESSION: 1. Fatty infiltration of the liver. Jaquelin Bal MD [facility] US ORDERABLES Final Resul t * ST STRESS TEST EXERCISE (07/30/2011 8:38 AM EDT) PYRAMIS LINK PYRAMIS Anatomical Region Laterality Modality Cardiac Stress T esting 07/30/2011 8:21 AM EDT Alverto Alex MD [facility] STRESS ORDERABLES Final Result * IR UTERINE [...] ultrasound. Right common femoral artery accessed 4 Belgian micropuncture set with ultrasound guidance. 5 Belgian vascular sheath placed over the wire. 5 Belgian pigtail placed through the lower abdominal aorta for pelvic arteriography using DSA. Single tortuous bilateral uterine artery demonstrated with large central fibroid vascularity in the uterus. 5 Belgian Massey catheter was negotiated up and over the bifurcation and selected to the left hypogastric artery. Selective pelvic arteriography used in several projections to assess the takeoff of the uterine artery. A 3 Belgian high flow Renegade microcatheter and transcend wire [...] by ultrasound. Rightcommon femoral artery accessed 4 Belgian micropuncture set with ultrasound guidance. 5 Frenchvascular sheath placed over the wire. 5 Belgian pigtail placed through the lower abdominal aortafor pelvic arteriography using DSA. Single tortuous bilateral uterine arterydemonstrated with large central fibroid vascularity in the uterus. 5 Belgian Massey catheter wasnegotiated up and over the bifurcation and selected to the left hypogastric artery. Selectivepelvic arteriography used in several projections to assess the takeoff of the uterine artery. A3 Belgian high flow Renegade microcatheter and transcend wire [...] ultrasound. Right common femoral artery accessed 4 Belgian micropuncture set with ultrasound guidance. 5 Belgian vascular sheath placed over the wire. 5 Belgian pigtail placed through the lower abdominal aorta for pelvic arteriography using DSA. Single tortuous bilateral uterine artery demonstrated with large central fibroid vascularity in the uterus. 5 Belgian Massey catheter was negotiated up and over the bifurcation and selected to the left hypogastric artery. Selective pelvic arteriography used in several projections to assess the takeoff of the uterine artery. A 3 Belgian high flow Renegade microcatheter and transcend wire [...] with manual compression. Procedure Note Beau Paz Gavi - 06/15/2011 BILATERAL UTERINE ARTERY EMBOLIZATION, INCLUDING [...] by ultrasound. Rightcommon femoral artery accessed 4 Belgian micropuncture set with ultrasound guidance. 5 Frenchvascular sheath placed over the wire. 5 Belgian pigtail placed through the lower abdominal aortafor pelvic arteriography using DSA. Single tortuous bilateral uterine arterydemonstrated with large central fibroid vascularity in the uterus. 5 Belgian Massey catheter wasnegotiated up and over the bifurcation and selected to the left hypogastric artery. Selectivepelvic arteriography used in several projections to assess the takeoff of the uterine artery. A3 Belgian high flow Renegade microcatheter and transcend wire [...] palliationmenorrhagia in the setting of uterine fibroids. Beau Paz MD IMG IR ORDERABLES Final Result * FOLLICLE STIMULATING HORMONE LEVEL (06/11/2011 1:24 PM EDT) FSH 11.1 mIU/mL [facility] Comment: Suggested Reference Range (mIU/mL) Postmenopausal Female 22 - 130 Follicular Phase Female 2 - 12 Luteal Phase Female 1 - 10 Blood specimen (specimen) UPPER LIMB STRUCTURE / Unknown 06/11/2011 1:24 PM EDT 06/11/2011 1:31 PM EDT Beau Paz MD CHEMISTRY ORDERABLES Final Res ult [facility] [address] [place] [address] * SCANNED PRE/POST PROCEDURES (08/18/2010 12:00 AM [...] Injury. Findings- No fracture or bony lesion. Sugar Cane Planting Equipment Operatorrosenda Mijares PhysicianJulio BUSH MD Released Date Time- 06/04/10 1529 Procedure Cleve Connolly - 06/04/2010 Left lower leg 3 views 06/04/2010. History- Injury. Findings- No fracture or bony lesion. Sugar Cane Planting Equipment Operatorrosenda BUSH MD Released Date Time- 06/04/10 1529 Carlene Burt ADMINISTRATIVE OFFICE CLERK [facility] [email or web address] RAD HISTORICA L Final Result * MR [...] Impression- Normal MRI of the lumbar spine Sugar Cane Planting Equipment Operator- ELEANOR FIGUEROA MD Reading Physician- ELEANOR FIGUEROA [...] Impression- Normal MRI of the lumbar spine [employer] Cane Planting Equipment Operator- ELEANOR FIGUEROA MD Reading Physician- ELEANOR FIGUEROA MD Released Date Time- 06/01/10 0958 Ling Regalado MD [facility] [email or web address] RAD HISTORICAL Fin al Result * SCANNED OR REPORT [...] Report Accession Number Collected Date/Time Received Date/Time [id number] 04/20/10 16:00 EDT 04/21/10 07:58 EDT Diagnosis Mesh from Ventral Hernia (Gross) James Nunez MD (Electronicall y signed by) Verified: 04/22/2010 [facility] Laboratory Clinical Information Ventral hernia Gross Description Received in formalin labelled with the patient's name and mesh is a 6 x 5.5 cm pinon-wall to pink oval shaped mass with attached tissue (1 cm thickness). Sectioning reveals fibrofatty tissue with mesh material without focal lesion. Gross examination only. NOTE: The gross specimen was reviewed by Dr. Nunez. /[place] DB /CT [facility] 04/20/2010 4:00 PM EDT us Francis Tejeda MD PATHOLOGY ORDERABLES Final Re sult [facility] [address] [place] [address] * CT ABD/PELVIS BLOW DOWN HELPER (03/19/2010 11:35 AM EDT) Only the most [...] Impression pelvis- 1. No acute pelvic process. Sugar Cane Planting Equipment Operator- BRIANNA CHAVEZ Reading Physician- PAM SANTANA MD. Released Date Time- 03/19/10 1715 Procedure Note Pam Santana - 03/19/2010 CT WT C ORDER 4-30 PM Abdomen and pelvis [...] Impression pelvis- 1. No acute pelvic process. Sugar Cane Planting Equipment Operator- BRIANNA Mijares Physician- PAM SANTANA MD. Released Date Time- 03/19/10 1715 Ling Regalado MD [facility] al Result * VA ARTERIAL LOWER (03/19/2010 [...] can be obtained from the vascular lab. Sugar Cane Planting Equipment Operator- SIDDHARTHA FIGUEROA M.D Reading Physician- SIDDHARTHA FIGUEROA [...] can be obtained from the vascular lab. Sugar Cane Planting Equipment Operator- SIDDHARTHA FIGUEROA M.D Reading Physician- SIDDHARTHA FIGUEROA M.D Released Date Time- 03/19/10 1851 Ling Regalado MD [facility] STAR CARD HISTORICAL Fi nal Result * [...] of the liver. Otherwise unremarkable liver/spleen scan. Sugar Cane Planting Equipment Operator- AWILDA GROVER Reading Physician- ALVERTO SMILEY MD [...] of the liver. Otherwise unremarkable liver/spleen scan. Sugar Cane Planting Equipment Operator- AWILDA GROVER Reading Physician- ALVERTO SMILEY MD Released Date Time- 02/27/10 1625 Ahmet Quezada MD [facility] HISTORICAL Final Result * VA LOWER [...] can be obtained from the vascular lab. Sugar Cane Planting Equipment Operator- SIDDHARTHA FIGUEROA M.D Reading Physician- SIDDHARTHA FIGUEROA [...] can be obtained from the vascular lab. Sugar Cane Planting Equipment Operator- SIDDHARTHA Mijares Physician- SIDDHARTHA FIGUEROA M.D Released Date Time- 02/26/10 1748 Ahmet Quezada MD [facility] STAR CARD HISTORICA L Final Result * EK EKG REG (12/24/2009 1:00 PM EST) Only the most recent of3 resultswithin the time period is included. Anatomical Region Laterality Modality Other 12/24/2009 1:00 PM EST Narrative 12/24/2009 5:13 PM EST Sinus rhythm Low QRS voltages in precordial leads No significant change from earlier record Borderline ECG Sugar Cane Planting Equipment Operator- HERO HARRINGTON MD Reading Physician- HERO HARRINGTON MD Released Date Time- 12/24/091712 Procedure Note Hero Harrington - 01/16/2010 Sinus rhythm Low QRS voltages in precordial leads No significant change from earlier record Borderline ECG Sugar Cane Planting Equipment Operator- HERO HARRINGTON MD Reading Physician- HERO HARRINGTON MD Released Date Time- 12/24/091712 Bart Winters MD [facility] HISTORICAL Final Result * MM DIG DIAG [...] densities. IMPRESSION- No radiographic evidence of malignancy (BCM-Cwgihajc-3) RECOMMENDATION- Routine screening mammogram in 1 year. [...] was reviewed by a Radiologist and CAD. Sugar Cane Planting Equipment Operator- BEE Mijares Physician- CLEVE BUSH MD Released Date Time- 12/09/091620 Procedure Note Cleve Bush R - 01/16/2010 Procedure-MM DIG DIAG SABAS PANEL W/CAD MM DIGITAL DIAG BILAT PANEL Bilateral CC and MLO view(s) were taken. No prior studies available for comparison. There are scattered fibroglandular densities. IMPRESSION- No radiographic evidence of malignancy (WXL-Fkbqgdny-3) RECOMMENDATION- Routine screening mammogram in 1 year. [...] was reviewed by a Radiologist and CAD. Sugar Cane Planting Equipment Operator- BEE Mijares Physician- CLEVE BUSH MD Released Date Time- 12/09/091620 us Bryant Post MD [facility] RAD HISTORICAL Final Result * US PELVIC [...] is present (2.9 x 2.3 cm). The automobile or truck rental dispatcher also questioned a small fibroid within the [...] 2.3 cm. Please see above detailed discussion. Sugar Cane Planting Equipment Operator- CAIT SCHAFER Reading Physician- SARKIS SANDERS DO Released Date Time- 11/01/09 1458 Procedure Note Sarkis Sanders R - 01/16/2010 Transabdominal/endovaginal pelvic ultrasound- Clinical history- Recurrent pelvic pain with irregular bleeding. No comparison ultrasound studies. Comparison with 10/30/2009 CT exam. Real-time grayscale transabdominal/endovaginal pelvic ultrasound performed. The uterus is enlarged and anteverted in position measuring 14.0 x 7.2 x 6.5 cm. Multiple scattered cervical nabothian cysts. A dominant anterior fundal fibroid is present (2.9 x 2.3 cm). The automobile or truck rental dispatcher also questioned a small fibroid within the [...] 2.3 cm. Please see above detailed discussion. Sugar Cane Planting Equipment OperatorJulio Mijares Physician- SARKIS SANDERS DO Released Date Time- 11/01/09 1458 Andreea Robertson MD [facility] HISTORICAL Final Result * XR ABDOMEN (11/01/2009 [...] bowel obstruction. Residual contrast within the colon. Sugar Cane Planting Equipment OperatorJulio Mijares Physician- SARKIS SANDERS DO Released Date Time- 11/01/09 0947 Procedure Note Sarkis Sanders - 01/16/2010 KUB only KUB abdomen- Generalized abdominal pain. No recent comparison films. There is visualized contrast scattered throughout the colon from recent CT exam. Nonobstructive bowel gas pattern. No visualized free air collection. Impression- No evidence of bowel obstruction. Residual contrast within the colon. Sugar Cane Planting Equipment Operator- CAIT SCHAFER Reading Physician- SARKIS SANDERS DO Released Date Time- 11/01/09 0947 us Sven Miller MD [facility] RAD HISTORICAL Fi nal Result * XR CHEST [...] 1. Stable chest. No acute cardiopulmonary disease. Sugar Cane Planting Equipment Operator- YUMIKO FERRERA Reading Physician- BEV LOPEZ MD Released Date Time- [...] 1. Stable chest. No acute cardiopulmonary disease. Sugar Cane Planting Equipment Operator- YUMIKO Mijares Physician- BEV LOPEZ MD Released Date Time- 10/22/09 1108 Matthew Varner MD [facility] STAR RAD HISTORICAL F inal Result * XR [...] effusions. Impression- Mild tricompartmental osteoarthritis both knees. Sugar Cane Planting Equipment Operator- PAM Mijares Physician- LATONYA GOMEZ M.D. Released Date Time- 08/29/09 1603 Procedure Note Latonya Gomez - 01/16/2010 Three views of each knee- 08/29/2009 Indication- Pain. Findings- AP, lateral and sunrise views of each knee demonstrate tricompartmental osteoarthritis bilaterally with relative preservation of joint spaces. No fractures, dislocations or bony lesions. No joint effusions. Impression- Mild tricompartmental osteoarthritis both knees. Sugar Cane Planting Equipment Operator- PAM Mijares Physician- LATONYA GOMEZ M.D. Released Date Time- 08/29/09 1603 us Matthew Varner MD [facility] STAR RAD HISTORICAL F inal Result * US [...] diameter, which is normal. Impression- Fatty liver. Sugar Cane Planting Equipment Operator- LOBO Mijares Physician- ANKUR SCHMIDT M.D. Released Date Time- 04/02/09 1839 Procedure Note Ankur Schmidt - 01/15/2010 WAITING RM/W ORDER Right upper quadrant liver ultrasound, 04/02/2009. Comparison- None. History- Elevated LFTs. Findings- Liver diffusely echogenic, consistent with fatty infiltration. Gallbladder normal, no gallstones. Visualized portions of the pancreas normal. Common bile duct 3 mm in diameter, which is normal. Impression- Fatty liver. Sugar Cane Planting Equipment Operator- LOBO TOLEDO Reading Physician- ANKUR SCHMIDT M.D. Released Date Time- 04/02/09 1839 us Pooja Kim MD [facility] Final Result * XR LUMBOSACRAL SPINE [...] negative. Impression- Negative, stable lumbar spine films. Sugar Cane Planting Equipment Operator- PAM DRAPER Reading Physician- LATONYA GOMEZ M.D. Released Date Time- [...] negative. Impression- Negative, stable lumbar spine films. [employer] Planting Equipment Operator- PAM Mijares Physician- LATONYA GOMEZ M.D. Released Date Time- 03/13/09 1505 us Pooja Kim MD [facility] Final Result * XR FINGER(S) (08/12/2007 [...] forefinger, with bony and soft tissue abnormality. [employer] Cane Planting Equipment Operator- LOBO Mijares Radiologist- GERRY SHELL M.D. Released Date Time- 08/13/07 2109 Procedure Note Gerry Shell - 01/14/2010 BED [...] forefinger, with bony and soft tissue abnormality. [employer]ane Planting Equipment Operator- LOBO [place] Reading Radiologist- GERRY SHELL M.D. Released Date Time- 08/13/072108 [facility] Emergency [facility] Final Result Visit Diagnoses Diagnosis Start Date [...] Coronary atherosclerosis of unspecified type of vessel, [place] or graft 08/26/2011 Leiomyoma of uterus, unspecified 09/20/2011 Pain Generalized pain 10/11/2011 Chest pain Chest pain, unspecified 02/29/2012 DM (diabetes mellitus) ([facility]) Type II or unspecified type diabetes mellitus [...] stated as uncontrolled 03/21/2012 DM (diabetes mellitus) ([facility]) Type II or unspecified type diabetes mellitus [...] inoculation against influenza 09/02/2014 DM (diabetes mellitus) (HCC) Type II [...] of lumbar region 09/20/2014 DM (diabetes mellitus) (HCC) Type II or [...] and unspecified hyperlipidemia 12/09/2014 DM (diabetes mellitus) ([facility]) Type II or unspecified type diabetes mellitus without mention of complication, not stated as uncontrolled 12/09/2014 Neuropathy Mononeuritis of unspecified site 03/12/2015 Dyslipidemia Other and unspecified hyperlipidemia 03/12/2015 DM (diabetes mellitus) ([facility]) Type II or unspecified type diabetes mellitus without mention of complication, not stated as uncontrolled 03/12/2015 Hyperlipidemia LDL goal <100 Other and unspecified hyperlipidemia 03/12/2015 Hypothyroidism Unspecified hypothyroidism 03/12/2015 GERD (gastroesophageal reflux disease) Esophageal reflux 03/12/2015 Abdominal pain, other specified site 03/12/2015 DM (diabetes mellitus) ([facility]) Type II or unspecified type diabetes mellitus without mention of complication, not stated as uncontrolled 03/17/2015 Hyperlipidemia LDL goal <100 Other and unspecified hyperlipidemia 03/17/2015 Hypothyroidism Unspecified hypothyroidism 03/17/2015 Other specified hypothyroidism 04/23/2015 Hyperlipidemia LDL goal <100 Other and unspecified hyperlipidemia 04/23/2015 Other specified hypothyroidism 04/23/2015 Morbid obesity with BMI of 50.0-59.9, adult (HCC) 04/23/2015 Breast cancer screening Breast screening, unspecified [...] obesity with BMI of 50.0-59.9, adult (HCC) 06/12/2015 Other specified hypothyroidism 06/12/2015 Hyperlipidemia LDL goal <100 Other and unspecified hyperlipidemia 06/12/2015 Type 2 diabetes mellitus with neurological manifestations, uncontrolled 06/17/2015 Abdominal pain, right upper quadrant 07/03/2015 Dizziness Dizziness and giddiness 07/03/2015 Right upper quadrant pain Abdominal pain, right upper quadrant 07/03/2015 Nausea Nausea alone 07/03/2015 Diaphoresis Generalized hyperhidrosis 07/08/2015 Type 2 diabetes mellitus with neurological manifestations, uncontrolled (HCC) 07/08/2015 Medication intolerance Other drug allergy 07/08/2015 [...] obesity with BMI of 45.0-49.9, adult (HCC) 11/10/2016 Diabetic polyneuropathy associated with type 2 [...] vaccination Need for prophylactic vaccination with combined jiubpuuraw-lypdzkr-xnyenacxj (DTP) vaccine 03/21/2018 Type 2 diabetes mellitus [...] obesity with BMI of 45.0-49.9, adult (HCC) 12/11/2018 Heart failure, unspecified HF chronicity, unspecified [...] 2 diabetes mellitus without complication, unspecified whether assisted insulin use 02/07/2019 Encounter for screening mammogram for breast [...] obesity with BMI of 50.0-59.9, adult (HCC) 01/23/2020 Viral upper respiratory tract infection Acute [...] medical examination at a health care facility 03/03/2021 Urinary frequency 03/03/2021 Heart failure [...] bilateral low back pain without sciatica 10/06/2022 [id number] condition 10/06/2022 Type 2 diabetes mellitus without complication, unspecified whether terminal carman insulin use 10/06/2022 Type 2 diabetes mellitus with peripheral [...] 2 diabetes mellitus with peripheral neuropathy ([facility]) 02/24/2024 Hypothyroidism, unspecified type 02/28/2024 Leg cramps Cramp of limb 03/14/2024 Leg cramps Cramp of limb 03/22/2024 Type 2 diabetes mellitus with hyperglycemia, with long-term current use of insulin ([facility]) 04/09/2024 Gastroesophageal reflux disease with esophagitis without hemorrhage 04/19/2024 Leg cramps Cramp of limb 04/19/2024 Gastroesophageal reflux disease with esophagitis without hemorrhage 04/30/2024 Type 2 diabetes mellitus with hyperglycemia, with long-term current use of insulin ([facility]) 05/07/2024 Type 2 diabetes mellitus with peripheral neuropathy (HCC) 05/07/2024 Hyperlipidemia associated with type 2 diabetes mellitus (HCC) 05/07/2024 Hypertension associated with type 2 diabetes mellitus ([facility]) 05/07/2024 Vaginal yeast infection Candidiasis of vulva [...] heart failure, unspecified heart failure type (HCC) 07/11/2024 Atherosclerosis of aorta 07/11/2024 Vaginal prolapse Unspecified prolapse of vaginal martinez 07/11/2024 Urge incontinence of urine Urge incontinence 07/11/2024 Cervical cancer screening Screening for malignant neoplasm of the cervix 07/11/2024 Medicare annual wellness visit, subsequent Routine general medical examination at a health care facility 07/11/2024 Type 2 diabetes mellitus with hyperglycemia, with long-term current use of insulin (HCC) 07/12/2024 Hyperlipidemia associated with type 2 diabetes mellitus (HCC) 07/12/2024 Hypertension associated with type 2 diabetes mellitus (HCC) 07/12/2024 Acquired hypothyroidism Unspecified hypothyroidism 07/12/2024 Encounter for screening mammogram for breast cancer 07/12/2024 Mixed incontinence Mixed incontinence urge and stress (male)(female) 07/17/2024 Cystocele, midline 07/17/2024 Frequency of urination Urinary frequency 07/17/2024 Morbid obesity with BMI of 50.0-59.9, adult (HCC) 07/17/2024 Chronic heart failure, unspecified heart failure type (HCC) 07/17/2024 Type 2 diabetes mellitus with peripheral neuropathy (HCC) 07/17/2024 Ventral hernia, recurrent Incisional hernia without [...] 2 diabetes mellitus with peripheral neuropathy (HCC) 08/21/2024 Type 2 diabetes mellitus with hyperglycemia, with long-term current use of insulin ([facility]) 08/22/2024 Hyperlipidemia associated with type 2 diabetes mellitus ([facility]) 08/22/2024 Hypertension associated with type 2 diabetes mellitus ([facility]) 08/22/2024 Acquired hypothyroidism Unspecified hypothyroidism 08/22/2024 Type 2 diabetes mellitus with hyperglycemia, with long-term current use of insulin ([facility]) 08/23/2024 Chronic heart failure, unspecified heart failure type ([facility]) 09/04/2024 Gastroesophageal reflux disease with esophagitis without [...] Obesity, Class III, BMI 40-49.9 (morbid obesity) ([facility]) Morbid obesity 12/04/2024 Calculus of gallbladder with [...] with long-term current use of insulin (HCC) 12/26/2024 Hyperlipidemia associated with type 2 diabetes [...] 2 diabetes mellitus without complication, unspecified whether terminal carman insulin use 03/05/2025 Postural dizziness with presyncope 03/07/2025 OAB (overactive bladder) Hypertonicity of bladder 04/02/2025 Type 2 diabetes mellitus with hyperglycemia, with long-term current use of insulin ([facility]) 04/08/2025 Hyperlipidemia associated with type 2 diabetes mellitus (HCC) 04/08/2025 Hypotension, unspecified hypotension type 04/10/2025 Diabetic polyneuropathy associated with type 2 diabetes mellitus (HCC) 06/04/2025 Chronic bilateral low back pain without sciatica 06/04/2025 Type 2 diabetes mellitus with peripheral neuropathy (HCC) 06/04/2025 SOB (shortness of breath) Shortness of breath 06/04/2025 Hyperlipidemia LDL goal <100 Other and unspecified hyperlipidemia 06/04/2025 Chronic heart failure, unspecified heart failure type (HCC) 06/04/2025 Type 2 diabetes mellitus with hyperglycemia, with long-term current use of insulin (HCC) 06/04/2025 Hyperlipidemia associated with type 2 diabetes mellitus (HCC) 06/04/2025 Hypothyroidism, unspecified type 06/04/2025 Gastroesophageal reflux disease with esophagitis without hemorrhage 06/04/2025 Leg cramps Cramp of limb 06/04/2025 Athlete's foot on left Dermatophytosis of foot 06/04/2025 OAB (overactive bladder) Hypertonicity of bladder 07/02/2025 Hyperlipidemia LDL goal <100 Other and unspecified hyperlipidemia 08/20/2025 Type 2 diabetes mellitus with hyperglycemia, with long-term current use of insulin ([facility]) 09/26/2025 TIA (transient ischemic attack) Unspecified transient cerebral ischemia 03/26/2021 Morbid obesity with BMI of 50.0-59.9, adult ([facility]) 03/26/2021 Type 2 diabetes mellitus with peripheral neuropathy ([facility]) 03/26/2021 Hyperlipidemia LDL goal <100 Other and unspecified hyperlipidemia 03/26/2021 Hypothyroidism Unspecified hypothyroidism 03/26/2021 Left sided numbness Disturbance of skin sensation 03/26/2021 Left arm weakness Other musculoskeletal symptoms referable to limbs 03/26/2021 Expressive aphasia Aphasia 03/26/2021 Dysarthria 03/26/2021 Acute respiratory failure with hypoxemia ([facility]) 09/24/2021 Acute respiratory failure with hypoxemia ([facility]) 09/24/2021 COVID-19 09/24/2021 Hyperlipidemia LDL goal <100 Other and unspecified hyperlipidemia 09/24/2021 Morbid obesity with BMI of 50.0-59.9, adult ([facility]) 09/24/2021 Type 2 diabetes mellitus with peripheral neuropathy ([facility]) 09/24/2021 Hypothyroidism Unspecified hypothyroidism 09/24/2021 E. coli UTI Urinary tract infection, site not specified 09/24/2021 Bradycardia Other specified cardiac dysrhythmias 09/24/2021 Chest pain, unspecified type 09/07/2024 Abdominal pain Abdominal pain, unspecified site 09/07/2024 Nausea & vomiting Nausea with vomiting 09/07/2024 Hypothyroidism Unspecified hypothyroidism 09/07/2024 Obesity, Class III, BMI 40-49.9 (morbid obesity) ([facility]) Morbid obesity 09/07/2024 Type 2 diabetes mellitus with peripheral neuropathy ([facility]) 09/07/2024 Heart failure ([facility]) Heart failure, unspecified 09/07/2024 Chronic pain of both knees 09/07/2024 Female genital prolapse Unspecified genital prolapse 01/02/2025 Rectocele 01/02/2025 EDITH (stress urinary incontinence, female) Female stress incontinence 01/02/2025 Goals Goal Patient Goal Type Associated Problems Recent Progress Patient-Stated? Author Blood Pressure < 140/90 Blood Pressure 150/90(2024 11:07 AM EDT) No Darden, Lyunda, RMA BMI (Calculated) < 30 General 46.7(06/04/20 11:07 AM EDT) No Giovanni Lyunda, RMA Maintain a healthy diet, exercise regularly and maintain an ideal body weight General No Radha Soto, RMA HEMOGLOBIN A1C < 7.0 Result Component 7.4( 5 11:23 AM EDT) No GiovanniAdelitaunda, RMA
--- OUTSIDE RECORDS SUMMARY | 2025-10-28 15:21 | XMS_ITS | Encounter Summary ---
Author Organization [place] [address] Care Team Providers Care Brush Cutter Name Role Phone Malinda Patterson MD Primary Care Provider Reason for Visit * Reason Onset Date Comments Central Patient Navigator Outreach 09/26/2025 AWV questionnaire Encounter Details Date Type Department Care Team (Late st Contact Info) Description 09/26/2025 Patient Outreach SEP [facility] [address] [place] [address] Malinda Patterson MD [address] [place] [address] Central Patient Navigator Outreach (AWV questionnaire /) Social History Tobacco Use Types Packs/Day Years Used Date Smoking Tobacco: Never Smokeless Tobacco: Never Alcohol Use Standard Drinks/Week Comments Yes 0 (1 standard drink = 0.6 oz pur e alcohol) rarely [facility] Utilities Answer Date Recorded In the [...] Date Recorded PHQ-2 Total Score 0 09/10/2024 [facility] - Occupational Stress [...] things needed for daily living? No 12/05/2023 [facility] IP Transportation Answer D ate Recorded [...] No 12/04/2024 11:31 AM EST Bishop Moralez R, RMA * Because of a physical, [...] documented in this encounter Progress Notes * Iram Patel - 09/26/2025 8:58 AM EST Patient Outreach: Pre-Visit Questionnaires Attempt Count: 1st Care Gaps Addressed continuous improvement black belt: Medicare Questionnaire Outcome:[facility] Message Sent and No answer/busy Call back number: [phone] documented in this encounter Plan of Treatment Not on file documented as of this encounter Goals Goal Patient Goal Type Associated Problems Recent Progress Patient-Stated? Author Blood Pressure < 140/90 Blood Pressure 150/90(2024 11:07 AM EDT) No Giovanni, Lyunda, RMA BMI (Calculated) < 30 General 46.7(06/04/20 11:07 AM EDT) No Prescott, Lyunda, RMA Maintain a healthy diet, exercise regularly and maintain an ideal body weight General No Radha Soto RMA HEMOGLOBIN A1C < 7.0 Result Component 7.4( 11:23 AM EDT) No Giovanni, Lyunda, RMA documented as of this encounter Visit Diagnoses Not on filedocumented in this encounter Care Teams Brush Cutter Relationship Specialty Start Date End Date Malinda Patterson MD [address] [place] [address] PCP - General Family Medicine 08/27/14 09/29/25 documented as of this encounter
--- OUTSIDE RECORDS SUMMARY | 2025-10-28 15:21 | XMS_ITS | Continuity of Care Document ---
Author Organization [facility] Address [address] [place] [address] Assessment No assessment recorded. Plan of Treatment Reminders Order Date Submit Date Provider Last Modified By Organization Details Last Modified Time Details Appointments Follow Up 2025 11:00A Miles Saleem APRN Not available Not available Not available Diabetic F/U 2025 09:00A Miles Saleem [employer] Not available Not available Not available Lab TSH + free T4, serum 2024 025 DEJA [facility], [address], [address] [address], [place], [address], 10/26/2025 08:12:22 vitamin D, 25-hydrox y, total, serum 2024 025 DEJA [facility], [address], [place] [address], [place], [address], 10/26/2025 08:12:23 drug screen, urine 2024 025 [facility], [address] [facility], [place], [address], 10/25/2025 13:06:22 HbA1c (hemoglob in A1c), blood 2024 025 MELISSA [facility], [address], [place] [address], [place], [address], 10/26/2025 08:12:23 CBC w/ auto diff 2024 025 DEJA [facility], [address], [place] [address], [place], [address], 10/26/2025 08:12:22 CMP, serum or plasma 2024 025 DEJA [facility], [address], [place] [address], [place], [address], 10/26/2025 08:12:23 uric acid, serum or plasma 2024 025 DEJA [facility], [address], [place] [address], [place], [address], 10/26/2025 08:12:24 Referral None recorded. Procedures None recorded. Surgeries None recorded. Imaging XR, foot, 3 or more view 2024 [facility] ([facility]), [address] [place] [address] [address], [place], [address], 10/28/2025 09:09:51 Medication Orders prednison e 10 mg tablet 2024 025 [facility] [id number], [address] [place], [address], 10/25/2025 11:55:15 Voltaren Arthritis Pain 1 % topical gel 2024 025 [facility] [id number], [address] [place] [address] , [place], [address], 10/25/2025 11:55:15 gabapenti n [address] mg tablet [address] [facility] [id number], [address] [place], [address], 10/25/2025 14:05:20 Patient TargetsNo targets recorded. Patient InstructionsNo instructions recorded. Reason for Referral None Reported. Results Created Date Observation Date Name Description Value Unit Range Abnormal Flag Note LastModifiedBy Organization Detail LastModifiedTime 10/25/2010/25/2025 drug scree n, urine AMP negati ve Not Available [address], [address], 10/25/2025 11:55:14 10/25/20 25 10/25/2025 drug scree n, urine BAR negati ve Not Available [address], [address], 10/25/2025 11:55:14 10/25/20 25 10/25/2025 drug scree n, urine BUP negati ve Not Available [address], [address], 10/25/2025 11:55:14 10/25/20 25 10/25/2025 drug scree n, urine BZO negati ve Not Available [address], [address], 10/25/2025 11:55:14 10/25/20 25 10/25/2025 drug scree n, urine JOSH negati ve Not Available [address], [address], 10/25/2025 11:55:14 10/25/20 25 10/25/2025 drug scree n, urine FTY negati ve Not Available [address], [address], 10/25/2025 11:55:14 10/25/20 25 10/25/2025 drug scree n, urine MDMA negati ve Not Available [address], [address], 10/25/2025 11:55:14 10/25/20 25 10/25/2025 drug scree n, urine MET negati ve Not Available [address], [address], 10/25/2025 11:55:14 10/25/2010/25/2025 drug scree n, urine MOP negati ve Not Available [address], [address], 10/25/2025 11:55:14 10/25/2010/25/2025 drug scree n, urine MTD negati ve Not Available [address], [address], 10/25/2025 11:55:14 10/25/2010/25/2025 drug scree n, urine OXY negati ve Not Available [address], [address], 10/25/2025 11:55:14 10/25/20 25 10/25/2025 drug scree n, urine PCP negati ve Not Available [address], [address], 10/25/2025 11:55:14 10/25/2010/25/2025 drug scree n, urine TCA negati ve Not Available [address], [address], 10/25/2025 11:55:14 10/25/2010/25/2025 drug scree n, urine THC negati ve Not Available [address], [address], 10/25/2025 11:55:14 Result Notes None recorded. Problems Name Problem SNOMED Code Status Onset Date Resolution Date Notes Provider Name and Address Organization Details Recorded Time Insulin treated type 2 diabetes mellitus 994351398 Active 2024 Rowena Stears null, [place] - [facility] 10:55:44 Essential hypertensio n 29205469 Active 2024 Zofia Willardkhalidaeileen, [employer] [address], [place], [address], [place] - [facility] 5 13:30:42 Hypercholes terolemia 64521074 Active 2024 Rowena Stears null, [place] - [facility] 10:56:02 Gastroesoph ageal reflux disease without esophagitis 742114521 Active 2024 Rowena Stears null, [place] - [facility] 10:56:11 Acquired hypothyroid ism 298952634 Active 2024 Rowena Stears null, [place] - [facility] 10:56:31 Congestive heart failure 11631020 Active 2024 Rowena Stears null, [place] - [facility] 10:57:13 Asthma 199624639 Active 2024 Rowena Stears null, [place] - [facility] 10:57:55 Transient cerebral ischemia 093565114 Completed 202407/22/2025 Rowena Stears null, [place] - [facility] 10:59:21 Overactive urinary bladder 701087428 Active 2024 Rowena Stears null, [place] - [facility] 11:07:45 Vitamin D deficiency 26917275 Active 2024 Donkai awilda, [employer] [address], [place], [address], [place] - [facility] 5 11:48:47 Hypertrigly ceridemia 302807431 Active 2024 Zofia awilda, [employer] [address], [place], [address], [place] - [facility] 5 11:57:04 Neuropathy 321234696 Active 2024 Donkai Saleem, [employer] [address], [place], [address], [place] - [facility] 14:03:48 Problem Notes None [...] Name and Address Organization Details Recorded Time 330010 Product containin g penicilli n (product) medicatio n Not available Not available Not available 07/22/2025 15827 8001 SNOMED Rowena Stears null, [place] - [...] height Body mass index (BMI) Body weight Oxygen saturation Respiratory rate Pain severity - 0-10 verbal numeric rating [Score] - Reported Heart rate Body temperature Systolic And Diastolic Provider Name and Address Organization Details Last Updated DateTime 5 162.56 cm 47.9 kg/m2 721517. 27 g 98 % 18 /min 0 69 /min 97 [degF] 128/82 mm[Hg] Yuli Encinas [place] - [facility] 11:14:18 Social History Question Answer Notes LastModified by Organizat ion Details LastModified Time Tobacco Smoking Status Never Smoker Rowena cramer, [place] - [facility] 07/22/2025 11:00:48 Do You Have [...] Or The Highest Degree You Have Received? [id number] Information not available 07/22/2025 Have There Been Any Changes To Your Family Or Social Situation? No Information no t available 07/22/2025 What Is The Fluoride Status Of Your Home? Unknown Information not available 07/22/2025 Do You Have A Medical Power Of Plate Driller? No Information not available 07/22/2025 What Was [...] anxious, or unable to sleep at night)? [id number] Information not available 07/22/2025 Do you have [...] intradermal, preservative free 4 completed Not Available [facility] 10/25/2025 10:39:23 Influenza, split virus, quadrivalent, preservative 5 completed Not Available [facility] 10/25/2025 10:39:23 Influenza, split virus, quadrivalent, PF 7 completed Not Available [facility] 10/25/2025 10:39:23 Tdap 8 completed Not Available [facility] 10/25/2025 10:39:23 Influenza, split virus, quadrivalent, PF 8 completed Not Available [facility] 10/25/2025 10:39:23 Influenza, split virus, quadrivalent, PF 9 completed Not Available [facility] 10/25/2025 10:39:23 HepB-CpG 0 completed Not Available [facility] 10/25/2025 10:39:23 Influenza, recombinant, quadrivalent, PF 0 completed Not Available [facility] 10/25/2025 10:39:23 Past Encounters Encounter ID Performer Location Encounter Start Date Encounter Closed Date Diagnosis/Indication Diagnosis SNOMED-CT Code Diagnosis ICD10 Code Diagnosis IMO Codes Diagnosis Note [id number] Zofia Saleem APRN [address] [address] 10/25/2025 10:38:51 10/25/2025 12:09:53 Essential hypertension 44945134 I10 40767 56282 check bp at home- keep logcall for any concerns Insulin tr eated type 2 diabetes mellitus 320170761 E11.9 Z79.4 152474 continue diet and exercise with medsDiscus sed [...] dvise on drinking with meds and dx Acquired hypothyroidism 439958005 E03.9 54159 Vitamin D deficiency 347 28108 E55.9 11000 Pain in left foot 697957 9992 72574 M79.672 468809 Long-term current use of drug therapy 197824743 Z79.899 27387533 Hypertriglyceridemia 302 377006 E78.1 747714 Neuropathy 726526411 G62 .9 09002 Pt compliant with plan of careJunior reviewedme dication compliance discussedL ast uds:Control substance agreement on file Health Concerns Section Related Observation LastModified by Organization Detai ls LastModified Time None Recorded Concern Status LastModified by Organization Details LastModified Time None Recorded Payers Encounter Date Sequence Insurance Name Policy Number Policy Carballo Covered Member ID Carballo Member ID Guarantor Name 10/25/2025 1 [employer] (MEDICARE REPLACEMENT/ ADVANTAGE - HMO) [id number] Kristin Lal [id number] Kristin Lal Notes Date Note Type Note Provider Name and Address Organization Details Recorded Time 10/25/2025 text/html Diabetes F/UReported by PatientHPIFor context, patient reportsnormal range of home blood sugars (in the low 100s),seeing eye doctor regularly, andchecking feet regularly. For associated symptoms, patient reportsno weight gain,no weight loss,no dizziness,no sweats,no headaches,no confusion,no increased thirst,no increased appetite,no increased urination,no blurred vision,no numbness of feet, andno calluses on feet. 55 yr old female presents for a diabetic follow up. States she has foot and leg pain mostly in left and unable to sleep. pt states she needs refill on her gabapentin for neuropathy and leg pain. Zofia Saleem, [employer] [address], [place], [address], [place] - [facility] 10/25/2025 14:05:45 OBGyn Episode No OBEpisode recorded.
--- OUTSIDE RECORDS SUMMARY | 2025-10-28 15:21 | XMS_ITS | Encounter Summary ---
Author Organization [place] [address] Care Team Providers Care Qm Consultant Name Role Phone Malinda Patterson MD Primary Care Provider Reason for Visit * Reason Comments Medication Refill Encounter Details Date Type Department Care Team (Late st Contact Info) Description 09/26/2025 Refill [facility] [employer] [address] [facility] [address] [place] [address] Marshall Ovalle MD [address] [place] [address] Medication Refill Social History Tobacco Use Types Packs/Day Years Used Date Smoking Tobacco: Never Smokeless Tobacco: Never Alcohol Use Standard Drinks/Week Comments Yes 0 (1 standard drink = 0.6 oz pur e alcohol) rarely [facility] Utilities Answer Date Recorded In the past 12 months has [employer] electric, gas, oil, or water [employer] threatened to shut off services in your home? No 09/10/2024 Overall Financial Resource Strain (CARDIA) Answe r Date Recorded How hard is it for you to pa y for the very basics like food, housing, medical care, and heating? Not hard at all 09/10/2024 PHQ-2 Answer Date Recorded PHQ-2 Total Score 0 09/10/2024 [facility] - Occupational Stress [...] things needed for daily living? No 12/05/2023 [facility] IP Transportation Answer D ate Recorded [...] Author No 12/04/2024 11:31 AM Bishop Regan RMVeena documented as of this encounter Mental Status [...] Blood Pressure 150/90(2024 11:07 AM EDT) No Ezekiel Davila RMVeena BMI (Calculated) < 30 General 46.7(06/04/20 11:07 AM EDT) No Ezekiel Davila RMVeena Maintain a healthy diet, exercise regularly and maintain an ideal body weight General No Radha Soto RMA HEMOGLOBIN A1C < 7.0 Result Component 7.4( 11:23 AM EDT) No Ezekiel Davila RMA documented as of this encounter Visit Diagnoses Diagnosis Type 2 diabetes mellitus with hyperglycemia, with long-term current use of insulin (HCC) documented in this encounter Care Teams Qm Consultant Relationship Specialty Start Date End Date Malinda Patterson MD [address] [place] [address] PCP - General Family Medicine 08/27/14 09/29/25 documented as of this encounter
--- OUTSIDE RECORDS SUMMARY | 2025-10-28 15:22 | XMS_ITS | Data Portability ---
Author Organization [facility] Address [address] [place] [address] Assessment No assessment recorded. 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 Not available Not available Not available Diabetic F/U 2025 09:00A Miles Saleem [employer]ENT Not available Not available Not available Lab TSH + free T4, serum 2024 025 DEJA [facility], [address], [address], [place], [address], 10/26/2025 08:12:22 vitamin D, 25-hydrox y, total, serum 2024 025 DEJA [facility], [address], [place] [address], [place], [address], 10/26/2025 08:12:23 drug screen, urine 2024 025 [facility], [address], [place], [address], 10/25/2025 13:06:22 HbA1c (hemoglob in A1c), blood 2024 025 AVALON [facility], [address], [address], [place], [address], 10/26/2025 08:12:23 CBC w/ auto diff 2024 025 DEJA [facility], [address], [place] [address], [place], [address], 10/26/2025 08:12:22 CMP, serum or plasma 2024 025 DEJA [facility], [address], [place] [address], [place], [address], 10/26/2025 08:12:23 uric acid, serum or plasma 2024 025 DEJA [facility], [address], [place] [address], [place], [address], 10/26/2025 08:12:24 TSH + free T4, serum 2024 025 DEJA [facility], [address], [place] [address], [place], [address], 07/27/2025 12:07:49 thiamine, QN, blood 2024 025 DEJA [facility], [address], [place] [address], [place], [address], 07/27/2025 12:07:51 cobalamin and folate panel, serum 2024 025 DEJA [facility], [address], [place] [address], [place], [address], 07/27/2025 12:07:50 magnesium , serum or plasma 2024 025 DEJA [facility], [address], [address] [address], [place], [address], 07/27/2025 12:07:51 vitamin D, 25-hydrox y, total, serum 2024 025 DEJA [facility], [address], [address], [place], [address], 07/27/2025 12:07:51 lipid panel, serum 2024 025 DEJA [facility], [address], [address] [address], [place], [address], 07/27/2025 12:07:50 HbA1c (hemoglob in A1c), blood 2024 025 DEJA [facility], [address], [place] [address], [place], [address], 07/27/2025 12:07:51 CBC w/ auto diff 2024 025 DEJA [facility], [address], [place] [address], [place], [address], 07/27/2025 12:07:49 CMP, serum or plasma 2024 025 DEJA [facility], [address], [place] [address], [place], [address], 07/27/2025 12:07:50 Referral None recorded. Procedures None recorded. Surgeries None recorded. Imaging XR, foot, 3 or more view 2024 [facility] (X-[facility]), [address] [facility], [place], [address], 10/28/2025 09:09:51 Medication Orders prednison e 10 mg tablet 2024 025 [facility] [id number], [address] , [place], [address], 10/25/2025 11:55:15 Voltaren Arthritis Pain 1 % topical gel 2024 025 [facility] [id number], [address] , [place], [address], 10/25/2025 11:55:15 gabapenti n 600 mg tablet 2024 025 [facility] [id number], [address] , [place], [address], 10/25/2025 14:05:20 atorvasta tin 80 mg tablet 2024 025 [facility] [id number], [address] , [place], [address], 07/22/2025 14:36:35 Lantus Solostar U-100 Insulin 100 unit/mL (3 mL) subcutane ous pen 2024 025 [facility] [id number], [address] , [place], [address], 07/22/2025 14:36:35 oxybutyni n chloride ER 10 mg tablet,ex tended release 24 hr 2024 025 [facility] [id number], [address] , [place], [address], 07/22/2025 14:36:35 Patient TargetsNo targets recorded. Patient Instructions Encounter Date Encounter Id Patient Instructions Last Modified By Organization Details Last Modified Time 07/22/2025 [id number] learning about healthy weight efryborup Not available 07/22/2025 15:49:18 body mass index: care instructions [facility] Not available 07/22/2025 15:49:18 Reason for Referral None Reported. Results Created Date Observation Date Name Description Value Unit Range Abnormal Flag Note LastModifiedBy Organization Detail LastModifiedTime 07/22/2007/23/2025 TSH+F REE T4 TSH 3.940 uIU/m L 0.450- 4.500 normal Not Available [facility] ([facility]) [address] [place], [address], 07/27/2025 12:07:49 07/22/2007/23/2025 TSH+F REE T4 T4,free(dire ct) 1.27 NG/dL 0.82-1 .77 normal Not Available [facility] ([facility]) [address] [place], [address], 07/27/2025 12:07:49 07/22/2007/23/2025 CBC WITH DIFFE RENTI AL/PL ATELE T WBC 10.7 x10e3 /uL 3.4-10 .8 normal Not Available [facility] ([facility]) [address] [place], [address], 07/27/2025 12:07:49 07/22/20 25 07/23/2025 CBC WITH DIFFE RENTI AL/PL ATELE T RBC 4.91 x10e6 /uL 3.77-5 .28 normal Not Available [facility] ([facility]) [address] [place], [address], 07/27/2025 12:07:49 07/22/20 25 07/23/2025 CBC WITH DIFFE RENTI AL/PL ATELE T hemoglobin 12.3 g/dL 11.1-1 5.9 normal Not Available [facility] ([facility]) [address] [place], [address], 07/27/2025 12:07:49 07/22/20 25 07/23/2025 CBC WITH DIFFE RENTI AL/PL ATELE T hematocrit 42.1 % 34.0-4 6.6 normal Not Available [facility] ([facility]) [address] [place], [address], 07/27/2025 12:07:49 07/22/20 25 07/23/2025 CBC WITH DIFFE RENTI AL/PL ATELE T MCV 86 fL 79-97 normal Not Available [facility] ([facility]) [address] [place], [address], 07/27/2025 12:07:49 07/22/20 25 07/23/2025 CBC WITH DIFFE RENTI AL/PL ATELE T MCH 25.1 pg 26.6-3 3.0 below low normal Not Available [facility] ([facility]) [address] [place], [address], 07/27/2025 12:07:49 07/22/20 25 07/23/2025 CBC WITH DIFFE RENTI AL/PL ATELE T MCHC 29.2 g/dL 31.5-3 5.7 below low normal Not Available [facility] ([facility]) [address] [facility], [place], [address], 07/27/2025 12:07:49 07/22/20 25 07/23/2025 CBC WITH DIFFE RENTI AL/PL ATELE T RDW 14.8 % 11.7-1 5.4 Not Available [facility] ([facility]) [address] [facility], [place], [address], 07/27/2025 12:07:49 07/22/2007/23/2025 CBC WITH DIFFE RENTI AL/PL ATELE T platelets 324 x10e3 /uL 150-45 0 normal Not Available [facility] ([facility]) [address] [facility], [place], [address], 07/27/2025 12:07:49 07/22/2007/23/2025 CBC WITH DIFFE RENTI AL/PL ATELE T neutrophils 63 % not estab. normal Not Available [facility] ([facility]) [address] [facility], [place], [address], 07/27/2025 12:07:49 07/22/20 25 07/23/2025 CBC WITH DIFFE RENTI AL/PL ATELE T lymphs 29 % not estab. normal Not Available [facility] ([facility]) [address] [facility], [place], [address], 07/27/2025 12:07:49 07/22/20 25 07/23/2025 CBC WITH DIFFE RENTI AL/PL ATELE T monocytes 5 % not estab. normal Not Available [facility] ([facility]) [address] [facility], [place], [address], 07/27/2025 12:07:49 07/22/20 25 07/23/2025 CBC WITH DIFFE RENTI AL/PL ATELE T eos 2 % not estab. normal Not Available [facility] ([facility]) [address] [place], [address], 07/27/2025 12:07:49 07/22/20 25 07/23/2025 CBC WITH DIFFE RENTI AL/PL ATELE T basos 1 % not estab. 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 0 normal Not Available [facility] ([facility]) [address] [place], [address], 07/27/2025 12:07:49 07/22/20 25 07/23/2025 CBC WITH DIFFE RENTI AL/PL ATELE T lymphs (absolute) 3.1 x10e3 /uL 0.7-3. 1 normal Not Available [facility] ([facility]) [address] [place], [address], 07/27/2025 12:07:49 07/22/20 25 07/23/2025 CBC WITH DIFFE RENTI AL/PL ATELE T monocytes(ab solute) 0.5 x10e3 /uL 0.1-0. 9 normal Not Available [facility] ([facility]) [address] [place], [address], 07/27/2025 12:07:49 07/22/20 25 07/23/2025 CBC WITH DIFFE RENTI AL/PL ATELE T eos (absolute) 0.3 x10e3 /uL 0.0-0. 4 normal Not Available [facility] ([facility]) [address] [facility], [place], [address], 07/27/2025 12:07:49 07/22/20 25 07/23/2025 CBC WITH DIFFE RENTI AL/PL ATELE T baso (absolute) 0.1 x10e3 /uL 0.0-0. 2 normal Not Available [facility] ([facility]) [address] [facility], [place], [address], 07/27/2025 12:07:49 07/22/2007/23/2025 CBC WITH DIFFE RENTI AL/PL ATELE T immature granulocytes 0 % not estab. Not Available [facility] ([facility]) [address] [facility], [place], [address], 07/27/2025 12:07:49 07/22/2007/23/2025 CBC WITH DIFFE RENTI AL/PL ATELE T immature grans (abs) 0.0 x10e3 /uL 0.0-0. 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 METAB OLIC PANEL (14) glucose 120 mg/dL 70-99 above high normal Not Available [facility] ([facility]) [address] [facility] [place], [address], 07/27/2025 12:07:50 07/22/20 25 07/23/2025 COMP. METAB OLIC PANEL (14) BUN 15 mg/dL 6-24 normal Not Available [facility] ([facility]) [address] [facility] [place], [address], 07/27/2025 12:07:50 07/22/20 25 07/23/2025 COMP. METAB OLIC PANEL (14) creatinine 0.70 mg/dL 0.57-1 .00 normal Not Available [facility] ([facility]) [address] [facility], [place], [address], 07/27/2025 12:07:50 07/22/20 25 07/23/2025 COMP. METAB OLIC PANEL (14) eGFR 102 mL/mi n/1.7 3 >59 normal Not Available [facility] ([facility]) [address] [facility] [place], [address], 07/27/2025 12:07:50 07/22/20 25 07/23/2025 COMP. METAB OLIC PANEL (14) BUN/creatini ne ratio 21 9-23 normal Not Available [facility] ([facility]) [address] [place], [address], 07/27/2025 12:07:50 07/22/20 25 07/23/2025 COMP. METAB OLIC PANEL (14) sodium 141 mmol/ L 134-14 4 normal Not Available [facility] ([facility]) [address] [facility] [place], [address], 07/27/2025 12:07:50 07/22/20 25 07/23/2025 COMP. METAB OLIC PANEL (14) potassium 4.7 mmol/ L 3.5-5. 2 normal Not Available [facility] ([facility]) [address] [place], [address], 07/27/2025 12:07:50 07/22/20 25 07/23/2025 COMP. METAB OLIC PANEL (14) chloride 103 mmol/ L 96-106 normal Not Available [facility] ([facility]) [address] [place], [address], 07/27/2025 12:07:50 07/22/20 25 07/23/2025 COMP. METAB OLIC PANEL (14) carbon dioxide, total 22 mmol/ L 20-29 normal Not Available [facility] ([facility]) [address] [place], [address], 07/27/2025 12:07:50 07/22/20 25 07/23/2025 COMP. METAB OLIC PANEL (14) calcium 9.7 mg/dL 8.7-10 .2 normal Not Available [facility] ([facility]) [address] [place], [address], 07/27/2025 12:07:50 07/22/20 25 07/23/2025 COMP. METAB OLIC PANEL (14) protein, total 7.0 g/dL 6.0-8. 5 normal Not Available [facility] ([facility]) [address] [place], [address], 07/27/2025 12:07:50 07/22/20 25 07/23/2025 COMP. METAB OLIC PANEL (14) albumin 4.0 g/dL 3.8-4. 9 normal Not Available [facility] ([facility]) [address] [place], [address], 07/27/2025 12:07:50 07/22/20 25 07/23/2025 COMP. METAB OLIC PANEL (14) globulin, total 3.0 g/dL 1.5-4. 5 Not Available [facility] ([facility]) [address] [place], [address], 07/27/2025 12:07:50 07/22/20 25 07/23/2025 COMP. METAB OLIC PANEL (14) bilirubin, total 0.6 mg/dL 0.0-1. 2 normal Not Available [facility] ([facility]) [address] [place], [address], 07/27/2025 12:07:50 07/22/20 25 07/23/2025 COMP. METAB OLIC PANEL (14) alkaline phosphatase 140 IU/L 49-135 above high normal Ple ase note refer ence inter hank martínez e Not Available [facility] ([facility]) [address] [facility] [place], [address], 07/27/2025 12:07:50 07/22/20 25 07/23/2025 COMP. METAB OLIC PANEL (14) AST (SGOT) 16 IU/L 0-40 normal Not Available [facility] ([facility]) [address] [facility] [place], [address], 07/27/2025 12:07:50 07/22/20 25 07/23/2025 COMP. METAB OLIC PANEL (14) ALT (SGPT) 15 IU/L 0-32 normal Not Available [facility] ([facility]) [address] [facility] [place], [address], 07/27/2025 12:07:50 07/22/20 25 07/23/2025 LIPID PANEL cholesterol, total 191 mg/dL 100-19 9 normal Not Available [facility] ([facility]) [address] [facility] [place], [address], 07/27/2025 12:07:50 07/22/20 25 07/23/2025 LIPID PANEL triglyceride s 64 mg/dL 0-149 normal Not Available [facility] ([facility]) [address] [facility] [place], [address], 07/27/2025 12:07:50 07/22/20 25 07/23/2025 LIPID PANEL HDL cholesterol 63 mg/dL >39 normal Not Available [facility] ([facility]) [address] [facility], [place], [address], 07/27/2025 12:07:50 07/22/20 25 07/23/2025 LIPID PANEL VLDL cholesterol jesse 12 mg/dL 5-40 Not Available [facility] ([facility]) [address] [facility], [place], [address], 07/27/2025 12:07:50 07/22/20 25 07/23/2025 LIPID PANEL LDL chol calc ([facility]) 116 mg/dL 0-99 above high normal Not Available [facility] ([facility]) [address] [facility], [place], [address], 07/27/2025 12:07:50 07/22/20 25 07/23/2025 LIPID PANEL LDL calc comment: [employer]ST[employer]ER Not Available [facility] ([facility]) [address] [facility], [place], [address], 07/27/2025 12:07:50 07/22/20 25 07/23/2025 VITAM IN B12 AND FOLAT E vitamin B12 313 pg/mL 232-12 45 normal Not Available [facility] ([facility]) [address] [place], [address], 07/27/2025 12:07:50 07/22/20 25 07/23/2025 VITAM IN B12 AND FOLAT E folate (folic acid), serum 4.9 NG/mL >3.0 normal A serum folat e jayde ntrat ion of less than 3.1 ng/mL is consi dered to repre sent clini jesse defic iency . Not Available [facility] ([facility]) [address] [facility], [place], [address], 07/27/2025 12:07:50 07/22/20 25 07/23/2025 HEMOG LOBIN A1C hemoglobin A1C 7.7 % 4.8-5. 6 above high normal Predi abete s: 5.7 - 6.4 Diabe diaz: >6.4 Glyce carole contr ol for adult s with diabe diaz: <7.0 Not Available [facility] ([facility]) [address] [facility], [place], [address], 07/27/2025 12:07:51 07/22/20 25 07/23/2025 VITAM IN [...] Endoc rine Socie ty went on to furth er defin e vitam in D insuf ficie ncy as a level betwe en 21 and 29 ng/mL (2). 1. IOM (Inst itute of Medic ine). 2010. Dieta ry refer ence intak es for calci um and D. Levi velasco [place]: [facility] Press . 2. Justin celis MF, Ranjan beth [place], Mehnaz off-F errar i LAINEZ, et al. Evalu ation , treat ment, and preve ntion of vitam in D defic iency : an Endoc rine Socie ty clini jesse pract ice guide line. JCEM. 2010; 96(7) :1911 -30. Not Available [facility] ([facility]) [address] [facility], [place], [address], 07/27/2025 12:07:51 07/22/2007/27/2025 VITAM IN B1 (THIA MINE) , BLOOD vit. B1, whole blood 133.5 nmol/ L 66.5-2 00.0 Not Available [facility] ([facility]) [address] [facility], [place], [address], 07/27/2025 12:07:51 07/22/20 25 07/23/2025 MAGNE SIUM magnesium 1.9 mg/dL 1.6-2. 3 normal Not Available [facility] ([facility]) [address] [facility], [place], [address], 07/27/2025 12:07:51 10/25/20 25 10/25/2025 drug scree n, urine AMP negati ve Not Available [address], [address], 10/25/2025 11:55:14 10/25/2010/25/2025 drug scree n, urine BAR negati ve Not Available [address], [address], 10/25/2025 11:55:14 10/25/20 25 10/25/2025 drug scree n, urine BUP negati ve Not Available [address], [address], 10/25/2025 11:55:14 10/25/2010/25/2025 drug scree n, urine BZO negati ve Not Available [address], [address], 10/25/2025 11:55:14 10/25/20 25 10/25/2025 drug scree n, urine JOSH negati ve Not Available [address], [address], 10/25/2025 11:55:14 10/25/20 25 10/25/2025 drug scree n, urine FTY negati ve Not Available [address], [address], 10/25/2025 11:55:14 10/25/20 25 10/25/2025 drug scree n, urine MDMA negati ve Not Available [address], [address], 10/25/2025 11:55:14 10/25/20 25 10/25/2025 drug scree n, urine MET negati ve Not Available [address], [address], 10/25/2025 11:55:14 10/25/20 25 10/25/2025 drug scree n, urine MOP negati ve Not Available [address], [address], 10/25/2025 11:55:14 10/25/2010/25/2025 drug scree n, urine MTD negati ve Not Available [address], [address], 10/25/2025 11:55:14 10/25/2010/25/2025 drug scree n, urine OXY negati ve Not Available [address], [address], 10/25/2025 11:55:14 10/25/20 25 10/25/2025 drug scree n, urine PCP negati ve Not Available [address], [address], 10/25/2025 11:55:14 10/25/2010/25/2025 drug scree n, urine TCA negati ve Not Available [address], [address], 10/25/2025 11:55:14 10/25/20 25 10/25/2025 drug scree n, urine THC negati ve Not Available [facility] [address], [place], [address], 10/25/2025 11:55:14 Result Notes None recorded. Problems Name Problem SNOMED Code Status Onset Date Resolution Date Notes Provider Name and Address Organization Details Recorded Time Insulin treated type 2 diabetes mellitus 911123164 Active 2024 Rowena Stears null, [place] - [facility] 10:55:44 Essential hypertensio n 48401473 Active 2024 Zofia Saleem, [employer] [address], [place], [address], [place] - [facility] 13:30:42 Hypercholes terolemia 14588423 Active 2024 Rowena Stears null, MD - [facility] 10:56:02 Gastroesoph ageal reflux disease without esophagitis 558773009 Active 2024 Rowena Stears null, MD - [facility] 10:56:11 Acquired hypothyroid ism 393001803 Active 2024 Rowena Stears null, MD - [facility] 10:56:31 Congestive heart failure 53462548 Active 2024 Rowena Stears null, MD - [facility] 10:57:13 Asthma 650207856 Active 2024 Rowena Stears null, MD - [facility] 10:57:55 Transient cerebral ischemia 112905941 Completed 202407/22/2025 Rowena Stears null, MD - [facility] 10:59:21 Overactive urinary bladder 603109265 Active 2024 Rowena Stears null, MD - [facility] 11:07:45 Vitamin D deficiency 33323871 Active 2024 Zofia Saleem, [employer]ENT [address], [place], [address], [place] - [facility] 5 11:48:47 Hypertrigly ceridemia 847221281 Active 2024 Zofia Saleem, [employer] [address], [place], [address], [place] - [facility] 11:57:04 Neuropathy 866274358 Active 2024 Zofia Saleem, [employer]ENT [address], [place], [address], [place] - [facility] 14:03:48 Problem Notes [...] Name and Address Organization Details Recorded Time 234221 Product containin g penicilli n (product) medicatio n Not available Not available Not available 07/22/2025 77524 8001 SNOMED Rowena Stears null, [place] - [...] 2nd Gen Pen Needle 32 gauge x 32 active Not Available Not Available Not Available Voltaren Arthritis Pain 1 % topical gel APPLY 2 GRAMS TO THE AFFECTED AREA(S) BY TOPICAL ROUTE 4 TIMES PER DAY 2024 active Not Available Not Available Not Avai lable Vitals Date Recorded Body weight Heart rate Oxygen saturation Respiratory rate Body temperature Body mass index (BMI) Body height Systolic And Diastolic Provider Name and Address Organization Details Last Updated DateTime 5 523081. 94 g 80 /min 96 % 18 /min 98 [degF] 46.3 kg/m2 162.56 cm 148/82 mm[Hg] Rowena Martinojames [facility] 10:50:45 Date Recorded Body height Body mass index (BMI) Body weight Heart rate Body temperature Respiratory rate Pain severity - 0-10 verbal numeric rating [Score] - Reported Oxygen saturation Systolic And Diastolic Provider Name and Address Organization Details Last Updated DateTime 162.56 cm 45.5 kg/m2 766180. 98 g 75 /min 98.1 [degF] 18 /min 0 100 % 155/88 mm[Hg] Yuli Encinas [facility] 5 11:45:51 Date Recorded Body height Body mass index (BMI) Body weight Oxygen saturation Respiratory rate Pain severity - 0-10 verbal numeric rating [Score] - Reported Heart rate Body temperature Systolic And Diastolic Provider Name and Address Organization Details Last Updated DateTime 5 162.56 cm 47.9 kg/m2 308549. 27 g 98 % 18 /min 0 69 /min 97 [degF] 128/82 mm[Hg] Yuli Huang [facility] 11:14:18 Social History Question Answer Notes LastModified by Organizat ion Details LastModified Time Tobacco Smoking Status Never Smoker Rowena Martinojames [facility] 07/22/2025 11:00:48 Do You Have An Advance [...] Or The Highest Degree You Have Received? [id number] Information not available 07/22/2025 Have There Been Any Changes To Your Family Or Social Situation? No Information no t available 07/22/2025 What Is The Fluoride Status Of Your Home? Unknown Information not available 07/22/2025 Do You Have A Medical Power Of Supervisor Testing? No Information not available 07/22/2025 What Was [...] Functional Status Question Answer Note LastModified by [employer] ion Details LastModified Time How many times [...] anxious, or unable to sleep at night)? [id number] Information not available 07/22/2025 Do you have [...] intradermal, preservative free 4 completed Not Available [facility] 10/25/2025 10:39:23 Influenza, split virus, quadrivalent, preservative 5 completed Not Available [facility] 10/25/2025 10:39:23 Influenza, split virus, quadrivalent, PF 7 completed Not Available [facility] 10/25/2025 10:39:23 Tdap 8 completed Not Available [facility] 10/25/2025 10:39:23 Influenza, split virus, quadrivalent, PF 8 completed Not Available [facility] 10/25/2025 10:39:23 Influenza, split virus, quadrivalent, PF 9 completed Not Available [facility] 10/25/2025 10:39:23 HepB-CpG 0 completed Not Available [facility] 10/25/2025 10:39:23 Influenza, recombinant, quadrivalent, PF 0 completed Not Available [facility] 10/25/2025 10:39:23 Past Encounters Encounter ID Performer Location Encounter Start Date Encounter Closed Date Diagnosis/Indication Diagnosis SNOMED-CT Code Diagnosis ICD10 Code Diagnosis IMO Codes Diagnosis Note [id number] Zofia Saleem APRN [address] [address] 07/22/2025 10:21:13 07/22/2025 11:44:53 Perioral numbness [id number] R20.0 4582163 Numbness of hand 1102402 04 R20.0 271515 Essential hypertension 76546368 I10 73148 Hypercholesterolemia 136 80527 E78.00 990569 Acquired hypothyroidism 481509661 E03.9 02037 Insulin tr eated type 2 diabetes mellitus 512597704 E11.9 Z79.4 206782 Overactive urinary bladder 228927715 N32.81 110046 Body mass index 40+ - severely obese 568117643 E66.813 Z68.42 6423667 46.3 [id number] Zofia Saleem APRN [address] [address] 07/29/2025 11:09:52 07/29/2025 12:00:21 Acquired hypothyroidism 749868971 E03.9 29698 Hypercholesterolemia 136 68248 E78.00 421574 Asthma 970560472 J45.90 9 [id number] Insulin tr eated type 2 diabetes mellitus 861491971 E11.9 Z79.4 454835 continue diet and exercise with medsDiscus sed [...] drinking with meds and dx Essential hypertension 99982345 I10 45950 check bp at home- keep logcall for any concerns [id number] Zofia Saleem APRN [facility] [address] [place] [address] 10/25/2025 10:38:51 10/25/2025 12:09:53 Essential hypertension 33910318 I10 79425 52233 check bp at home- keep logcall for any concerns Insulin tr eated type 2 diabetes mellitus 595698891 E11.9 Z79.4 757120 continue diet and exercise with medsDiscus sed [...] drinking with meds and dx Acquired hypothyroidism 682109554 E03.9 28840 Vitamin D deficiency 347 12172 E55.9 09510 Pain in left foot 671727 8129 65824 M79.672 493339 Long-term current use of drug therapy 810525169 Z79.899 34226493 Hypertriglyceridemia 302 019809 E78.1 661419 Neuropathy 993104722 G62 .9 62606 Pt compliant with plan of careKasper reviewedme dication compliance discussedL ast uds:Control substance agreement on file Health Concerns Section Related Observation LastModified by Organization Detai ls LastModified Time None Recorded Concern Status LastModified by Organization Details LastModified Time None Recorded Advance Directives Directive N: Payers Insurance Date Sequence Insurance Name Policy Number Policy Carballo Covered Member ID Carballo Member ID Guarantor Name 10/22/2025 1 [employer] (MEDICARE REPLACEMENT/ ADVANTAGE - HMO) [id number] Kristin Lal [id number] Kristin Lal 10/25/2025 [place] Kristin Lal [id number] Kristin Lal 10/22/2025 [employer] [id number] Kristin Lal [id number] Kristin Lal Notes Date Note Type Note Provider Name and Address Organization Details Recorded Time 07/22/2025 text/html ROS as noted in the HPI 54 year old female who presents to the office today with concerns ofnumbness in hands and lips for weeks wants labs checkeddiabetes, overactive bladder and high cholesterolneeds refills on lantus solostar, oxybutynin, atorvastatin Zofia WillardAIDAN [facility] [address], [place], [address], [place] - [facility] 07/22/2025 15:49:22 07/29/2025 text/html 54 yr old female presents [...] doing well no c/o at this time Donkai AIDAN [address], [place], [address], [email or web address] - [facility] 07/29/2025 13:31:39 10/25/2025 text/html Diabetes F/URepo rted by PatientHPIFor context, patient reportsnormal range of [...] her gabapentin for neuropathy and leg pain. Doncelinazachery WillardAIDAN [address], [place], [address], [place] - [facility] 10/25/2025 14:05:45 OBGyn Episode No OBEpisode recorded.
== END 2025-10-28 23:59 | disposition home or self-care (01) ==
LOC: RAD 15:15
PROVIDERS: PCP Nurse Practitioner Family; Visit Provider Nurse Practitioner Family
DX: M77.32 Calcaneal spur, left foot; M19.072 Primary osteoarthritis, left ankle and foot
CPT/HCPCS: 73630